=== PATIENT | female | born 1945 | race Caucasian/White ===

== ENCOUNTER 2019-12-11 07:30 | Outpatient (CLI) | payer MEDICARE, OTHER, SELFPAY ==
--- NOTE | ~2019-12-11 | MM_ITS ---
EXAMINATION: MM screening valeria BI w nataliya HISTORY: Screening mammogram, family history of breast cancer in her sister. TECHNIQUE: Craniocaudal and mediolateral oblique 3-D tomosynthesis images were obtained and synthetic 2-D images were generated. CAD analysis was submitted and interpreted. COMPARISON: 12/09/2018, 07/18/2017, 07/16/2016, 07/13/2015 BREAST PARENCHYMAL COMPOSITION: The breasts are almost entirely fatty. FINDINGS: There is no evidence of suspicious mass, calcification, or architectural distortion to sugg est malignancy in either breast. There has been no suspicious interval change. IMPRESSION: 1. No mammographic evidence of malignancy. 2. Recommend routine screening mammography in one year. BI-RADS Category 1: Negative Reviewed, dictated and finalized at location A. R REFINISHER
== END 2019-12-11 07:31 | disposition home or self-care (01) ==
LOC: ANHIMG 07:32
PROVIDERS: PCP Internal Medicine; Visit Provider Internal Medicine
DX: Z12.31 Encounter for screening mammogram for malignant neoplasm of breast (principal)
CPT/HCPCS: 77063; 77067

== ENCOUNTER 2020-01-19 06:41 | Outpatient (CLI) | payer MEDICARE, OTHER, SELFPAY ==
[2020-01-19 07:29] LABS: Hemoglobin A1C 5.5 % (<5.7)
[2020-01-19 07:31] LABS: Cholesterol 167 mg/dL (0-200); HDL Direct 43 mg/dL; Triglycerides 124 mg/dL (<150)
[2020-01-19 07:42] LABS: LDL Cholesterol Direct 99 mg/dL
[2020-01-19 07:46] LABS: Creatinine Urine 113.8 mg/dL
[2020-01-19 08:00] LABS: MALB Creatinine Ratio < 5.3 mg/g (0-30); Microalbumin Urine Random < 6.0 mg/L (0-16.7)
[2020-01-19 08:03] LABS: Free T4 Free Thyroxine 1.08 ng/mL (0.78-2.19)
== END 2020-01-19 06:42 | disposition home or self-care (01) ==
PROVIDERS: PCP Internal Medicine; Visit Provider Nurse Practitioner
DX: E03.9 Hypothyroidism, unspecified (principal); E11.9 Type 2 diabetes mellitus without complications; E78.5 Hyperlipidemia, unspecified
CPT/HCPCS: 36415; 80061; 82043; 83036; 84439; 84443

== ENCOUNTER 2020-07-09 07:04 | Outpatient (CLI) | payer MEDICARE, OTHER, SELFPAY ==
[2020-07-09 07:41] LABS: Hematocrit 37.8 % (37.0-47.0); Hemoglobin 12.4 g/dL (12.0-15.0)
[2020-07-09 07:53] LABS: Hemoglobin A1C 5.6 % (<5.7)
[2020-07-09 08:03] LABS: Alanine Aminotransferase 26 U/L (4-35); Albumin Level 3.8 g/dL (3.5-5.1); Alkaline Phosphatase 79 U/L (38-126); Anion Gap 6 mmol/L (8-16); Aspartate Amino Transferase 27 U/L (14-36); Bilirubin,Total 0.5 mg/dL (0.2-1.3); Blood Urea Nitrogen 13 mg/dL (7-17); Calcium 8.7 mg/dL (8.4-10.2); Carbon Dioxide 30 mmol/L (22-30); Chloride 101 mmol/L (98-107); Cholesterol 178 mg/dL (0-200); Estimated Glomerular Filt Rate > 60; Glucose 111 mg/dL (65-105); HDL Direct 36 mg/dL; Iron 82 ug/dL (37-170); Sodium 137 mmol/L (137-145); Triglycerides 160 mg/dL (<150)
[2020-07-09 08:10] LABS: LDL Cholesterol Direct 112 mg/dL
[2020-07-09 08:14] LABS: Percent Iron Saturation 28 % (20-50)
[2020-07-09 08:33] LABS: Potassium 3.9 mmol/L (3.4-5.0)
== END 2020-07-09 07:05 | disposition home or self-care (01) ==
PROVIDERS: PCP Internal Medicine; Visit Provider Internal Medicine
DX: D50.9 Iron deficiency anemia, unspecified (principal); E11.9 Type 2 diabetes mellitus without complications; D64.9 Anemia, unspecified; E03.9 Hypothyroidism, unspecified; I10 Essential (primary) hypertension; E78.5 Hyperlipidemia, unspecified
CPT/HCPCS: 36415; 80053; 80061; 83036; 83540; 83550; 84443; 85014; 85018

== ENCOUNTER 2020-08-09 07:38 | Outpatient (CLI) | payer MEDICARE, OTHER, SELFPAY ==
--- NOTE | 2020-08-09 07:46 | ECHO_ITS ---
Patient Info Name: Nikole Osorio Age: 74 years : 1945 Gender: Female Ht: 63 in Wt: 275 lbs BSA: 2.43 m2 HR: 60 bpm BP: 134 / 88 mmHg Heart Rhythm: Sinus Rhythm Technical Quality: Good Exam Date: 08/09/2020 8:04 AM Exam Location: [facility] Pulmonary Patient Status: Outpatient Admit Date: 08/09/2020 Staff Ordering Physician: Remy Rico APRN Electronic Scale Subassembler: Mickie Smith RDCS Attending Provider: Remy Rico APRN Referring Physician: Jacky PATRICK; Exam Type: CA echo doppler color flow Study Info Indications R06.02 - Shortness of breath Complete two-dimensional, color flow and Doppler transthoracic echocardiogram is performed. History/Risk Factors Shortness of breath, pulmonary hypertension. Summary 1. Complete two-dimensional, color flow and Doppler transthoracic echocardiogram is performed. 2. Left ventricular chamber dimension is mildly enlarged. 3. Left ventricular systolic function is normal, estimated at 55-60%. 4. The left ventricular diastolic function is abnormal. 5. E/e' 11 is mildly elevated. 6. Left atrial chamber dimension is moderately enlarged. 7. There is trace aortic valve regurgitation. 8. There is moderate mitral valve regurgitation. 9. There is mild tricuspid valve regurgitation. 10. Mild pulmonary hypertension, estimated pulmonary arterial systolic pressure is 48 mmHg. 11. Dilated inferior vena cava with >50% collapse upon inspiration consistent with elevated right atrial pressure, 10 mmHg. Left Ventricle E/e' 11 is mildly elevated. Left ventricular chamber dimension is mildly enlarged. Left ventricular systolic function is normal, estimated at 55-60%. The left ventricular diastolic function is abnormal. Right Ventricle Right ventricular systolic function is normal with TAPSE 2.2 cm.. Right ventricular chamber dimension is normal. Left Atria Left atrial chamber dimension is moderately enlarged. Right Atria Right atrial chamber dimension is normal. Aortic Valve The aortic valve is trileaflet. There is no aortic valve stenosis. There is trace aortic valve regurgitation. Pulmonic Valve There is no pulmonic regurgitation. Mitral Valve There is no mitral valve stenosis. There is moderate mitral valve regurgitation. Tricuspid Valve There is mild tricuspid valve regurgitation. Mild pulmonary hypertension, estimated pulmonary arterial systolic pressure is 48 mmHg. Pericardium/Pleural There is no pericardial effusion. Inferior Vena Cava Dilated inferior vena cava with >50% collapse upon inspiration consistent with elevated right atrial pressure, 10 mmHg. Aorta The aortic root size at the sinus of Valsalva is normal. Left Ventricular Outflow Tract Name Value Normal LVOT 2D LVOT Diameter 2.0 cm LVOT Doppler LVOT Peak Gradient 3 mmHg LVOT Mean Gradient 2 mmHg LVOT VTI 22 cm LVOT VTI/AV VTI Ratio 0.7 LVOT Stroke Volume 73 ml LVOT CO 4.4 l/min
== END 2020-08-09 07:39 | disposition home or self-care (01) ==
PROVIDERS: PCP Internal Medicine; Visit Provider Nurse Practitioner Family
DX: R06.02 Shortness of breath (principal); I08.3 Combined rheumatic disorders of mitral, aortic and tricuspid valves
CPT/HCPCS: 93306

== ENCOUNTER 2020-12-30 06:42 | Outpatient (CLI) | payer MEDICARE, OTHER, SELFPAY ==
[2020-12-30 07:51] LABS: Alanine Aminotransferase 27 U/L (4-35); Albumin Level 3.8 g/dL (3.5-5.1); Alkaline Phosphatase 69 U/L (38-126); Anion Gap 4 mmol/L (8-16); Aspartate Amino Transferase 29 U/L (14-36); Bilirubin,Total 0.5 mg/dL (0.2-1.3); Blood Urea Nitrogen 16 mg/dL (7-17); Calcium 8.5 mg/dL (8.4-10.2); Carbon Dioxide 32 mmol/L (22-30); Chloride 104 mmol/L (98-107); Cholesterol 160 mg/dL (0-200); Estimated Glomerular Filt Rate > 60; Glucose 110 mg/dL (65-105); HDL Direct 34 mg/dL; Potassium 4.1 mmol/L (3.4-5.0); Sodium 140 mmol/L (137-145); Triglycerides 147 mg/dL (<150)
[2020-12-30 08:02] LABS: LDL Cholesterol Direct 97 mg/dL
[2020-12-30 08:21] LABS: Thyroid Stimulating Hormone 0.319 uIU/mL (0.465-4.680)
[2020-12-30 10:58] LABS: Hemoglobin A1C 5.6 % (<5.7)
== END 2020-12-30 06:43 | disposition home or self-care (01) ==
PROVIDERS: PCP Internal Medicine; Visit Provider Internal Medicine
DX: E03.9 Hypothyroidism, unspecified (principal); E11.9 Type 2 diabetes mellitus without complications; I10 Essential (primary) hypertension; E78.5 Hyperlipidemia, unspecified; D50.9 Iron deficiency anemia, unspecified
CPT/HCPCS: 36415; 80053; 80061; 82728; 83036; 84443

== ENCOUNTER 2021-07-21 06:42 | Outpatient (CLI) | payer MEDICARE, OTHER, SELFPAY ==
[2021-07-21 07:47] LABS: Basophils Percent Auto 0.6 % (0.2-1.2); Eosinophils Percent Auto 0.2 % (0-4.4); Hematocrit 37.6 % (37.0-47.0); Hemoglobin 12.1 g/dL (12.0-15.0); Immature Granulocyte Absolute 0.01 K/mm3 (0.00-0.031); Immature Granulocyte Percent A 0.2 % (0-0.5); Lymphocytes Absolute Auto 1.64 K/mm3 (0.9-3.2); Lymphocytes Percent Auto 31.1 % (18.3-44.2); Mean Corpuscular HGB Conc 32.2 g/dl (32-36); Mean Corpuscular Hemoglobin 30.9 pg (26-34); Mean Corpuscular Volume 96.2 fl (80-100); Mean Platelet Volume 10.3 fl (7.4-10.4); Monocytes Absolute Auto 0.4 K/mm3 (0.1-0.6); Neutrophils Absolute Auto 3.2 K/mm3 (1.3-6.7); Neutrophils Percent Auto 59.9 % (45.5-73.1); Platelet Count Result 160 k/mm3 (150-375); Red Blood Count 3.91 M/mm3 (4.2-5.4); Red Cell Distribution Width 12.8 % (11.5-14.5); White Blood Count 5.3 K/mm3 (4.5-10.0)
[2021-07-21 08:04] LABS: Alanine Aminotransferase 22 U/L (4-35); Albumin Level 4.1 g/dL (3.5-5.1); Alkaline Phosphatase 76 U/L (38-126); Anion Gap 7 mmol/L (8-16); Aspartate Amino Transferase 25 U/L (14-36); Bilirubin,Total 0.5 mg/dL (0.2-1.3); Blood Urea Nitrogen 16 mg/dL (7-17); Calcium 8.6 mg/dL (8.4-10.2); Carbon Dioxide 31 mmol/L (22-30); Chloride 101 mmol/L (98-107); Cholesterol 177 mg/dL (0-200); Estimated Glomerular Filt Rate > 60; Glucose 111 mg/dL (65-110); HDL Direct 44 mg/dL; Potassium 4.1 mmol/L (3.4-5.0); Sodium 139 mmol/L (137-145); Triglycerides 130 mg/dL (<150)
[2021-07-21 08:15] LABS: LDL Cholesterol Direct 92 mg/dL
[2021-07-21 08:16] LABS: Hemoglobin A1C 5.9 % (<5.7)
[2021-07-21 08:37] LABS: Iron 71 ug/dL (37-170)
[2021-07-21 08:46] LABS: Percent Iron Saturation 22 % (20-50)
[2021-07-21 09:30] LABS: Creatinine Urine 115.6 mg/dL
[2021-07-21 09:32] LABS: MALB Creatinine Ratio 6.8 mg/g (0-30); Microalbumin Urine Random 7.9 mg/L (0-16.7)
== END 2021-07-21 06:43 | disposition home or self-care (01) ==
LOC: ANHLAB 06:49
PROVIDERS: PCP Internal Medicine; Visit Provider Nurse Practitioner
DX: E03.9 Hypothyroidism, unspecified (principal); E78.49 Other hyperlipidemia; E11.9 Type 2 diabetes mellitus without complications; D50.9 Iron deficiency anemia, unspecified; Z78.0 Asymptomatic menopausal state
CPT/HCPCS: 36415; 80053; 80061; 82043; 83036; 83540; 83550; 84443; 85025

== ENCOUNTER 2022-02-12 06:39 | Outpatient (CLI) | payer MEDICARE, OTHER, SELFPAY ==
[2022-02-12 07:14] LABS: Basophils Percent Auto 0.6 % (0.2-1.2); Eosinophils Percent Auto 0.2 % (0-4.4); Hematocrit 38.5 % (37.0-47.0); Hemoglobin 12.5 g/dL (12.0-15.0); Immature Granulocyte Absolute 0.02 K/mm3 (0.00-0.031); Immature Granulocyte Percent A 0.3 % (0-0.5); Lymphocytes Absolute Auto 1.66 K/mm3 (0.9-3.2); Mean Corpuscular HGB Conc 32.5 g/dl (32-36); Mean Corpuscular Hemoglobin 30.9 pg (26-34); Mean Corpuscular Volume 95.3 fl (80-100); Mean Platelet Volume 10.5 fl (7.4-10.4); Monocytes Absolute Auto 0.5 K/mm3 (0.1-0.6); Monocytes Percent Auto 7.7 % (2.6-8.5); Neutrophils Absolute Auto 4.4 K/mm3 (1.3-6.7); Neutrophils Percent Auto 66.2 % (45.5-73.1); Platelet Count Result 156 k/mm3 (150-375); Red Blood Count 4.04 M/mm3 (4.2-5.4); Red Cell Distribution Width 13.2 % (11.5-14.5); White Blood Count 6.6 K/mm3 (4.5-10.0)
[2022-02-12 07:29] LABS: Alanine Aminotransferase 16 U/L (4-35); Albumin Level 4.1 g/dL (3.5-5.1); Alkaline Phosphatase 68 U/L (38-126); Anion Gap 6 mmol/L (8-16); Aspartate Amino Transferase 27 U/L (14-36); Bilirubin,Total 0.3 mg/dL (0.2-1.3); Blood Urea Nitrogen 17 mg/dL (7-17); Calcium 8.3 mg/dL (8.4-10.2); Carbon Dioxide 29 mmol/L (22-30); Chloride 103 mmol/L (98-107); Cholesterol 176 mg/dL (0-200); Estimated Glomerular Filt Rate > 60; Glucose 113 mg/dL (65-110); HDL Direct 38 mg/dL; Potassium 4.2 mmol/L (3.4-5.0); Sodium 138 mmol/L (137-145); Triglycerides 148 mg/dL (<150)
[2022-02-12 07:39] LABS: LDL Cholesterol Direct 94 mg/dL
[2022-02-12 07:43] LABS: Hemoglobin A1C 5.7 % (<5.7)
== END 2022-02-12 06:40 | disposition home or self-care (01) ==
LOC: ANHLAB 06:44
PROVIDERS: PCP Internal Medicine; Visit Provider Internal Medicine
DX: E03.9 Hypothyroidism, unspecified (principal); E11.9 Type 2 diabetes mellitus without complications; E78.5 Hyperlipidemia, unspecified; D50.9 Iron deficiency anemia, unspecified; I10 Essential (primary) hypertension
CPT/HCPCS: 36415; 80053; 80061; 83036; 84443; 85025

== ENCOUNTER 2022-09-03 06:48 | Outpatient (CLI) | payer MEDICARE, OTHER, SELFPAY ==
[2022-09-03 08:11] LABS: Alanine Aminotransferase 17 U/L (6-35); Alkaline Phosphatase 62 U/L (38-126); Anion Gap 11 mmol/L (8-16); Aspartate Amino Transferase 21 U/L (14-36); Bilirubin,Total 0.4 mg/dL (0.2-1.3); Blood Urea Nitrogen 14 mg/dL (7-17); Calcium 8.5 mg/dL (8.4-10.2); Carbon Dioxide 30 mmol/L (22-30); Chloride 101 mmol/L (98-107); Cholesterol 163 mg/dL (0-200); Estimated Glomerular Filt Rate > 60; Glucose 107 mg/dL (65-110); HDL Direct 39 mg/dL; Potassium 4.1 mmol/L (3.4-5.0); Sodium 142 mmol/L (137-145); Triglycerides 136 mg/dL (<150)
[2022-09-03 08:23] LABS: LDL Cholesterol Direct 93 mg/dL
[2022-09-03 08:47] LABS: Hemoglobin A1C 6.1 % (<5.7)
== END 2022-09-03 06:49 | disposition home or self-care (01) ==
LOC: ANHLAB 06:51
PROVIDERS: PCP Internal Medicine; Visit Provider Nurse Practitioner
DX: E03.9 Hypothyroidism, unspecified (principal); E11.9 Type 2 diabetes mellitus without complications; E78.5 Hyperlipidemia, unspecified
CPT/HCPCS: 36415; 80053; 80061; 83036; 84443

== ENCOUNTER 2023-04-22 06:40 | Outpatient (CLI) | payer MEDICARE, OTHER, SELFPAY ==
[2023-04-22 07:47] LABS: Alanine Aminotransferase 19 U/L (6-35); Alkaline Phosphatase 65 U/L (38-126); Anion Gap 6 mmol/L (8-16); Aspartate Amino Transferase 23 U/L (14-36); Bilirubin,Total 0.4 mg/dL (0.2-1.3); Blood Urea Nitrogen 16 mg/dL (7-17); Calcium 8.4 mg/dL (8.4-10.2); Carbon Dioxide 29 mmol/L (22-30); Chloride 102 mmol/L (98-107); Cholesterol 169 mg/dL (0-200); Estimated Glomerular Filt Rate > 60; Glucose 102 mg/dL (65-110); HDL Direct 41 mg/dL; Potassium 4.3 mmol/L (3.4-5.0); Sodium 137 mmol/L (137-145); Triglycerides 152 mg/dL (<150)
[2023-04-22 07:58] LABS: LDL Cholesterol Direct 100 mg/dL
[2023-04-22 08:18] LABS: Thyroid Stimulating Hormone 0.859 uIU/mL (0.465-4.680)
[2023-04-22 08:32] LABS: Hemoglobin A1C 5.7 % (<5.7)
[2023-04-22 08:47] LABS: Creatinine Urine 98.4 mg/dL
[2023-04-22 08:52] LABS: MALB Creatinine Ratio < 6.1 mg/g (0-30); Microalbumin Urine Random < 6.0 mg/L (0-16.7)
== END 2023-04-22 06:41 | disposition home or self-care (01) ==
PROVIDERS: PCP Nurse Practitioner; Visit Provider Nurse Practitioner
DX: E11.9 Type 2 diabetes mellitus without complications (principal); E03.9 Hypothyroidism, unspecified; E78.5 Hyperlipidemia, unspecified; I10 Essential (primary) hypertension
CPT/HCPCS: 36415; 80053; 80061; 82043; 83036; 84443

== ENCOUNTER 2023-07-25 09:04 | Emergency (ER) | payer MEDICARE, OTHER, SELFPAY ==
[2023-07-25 09:19] VITALS: BP 147/65; PULSE 62; RESP 20; TEMP 36.2; O2SAT 100
--- NOTE | 2023-07-25 09:43 | ED.URI ---
HPI - URI/Sore Throat General Chief Complaint: Upper Respiratory Infection Stated Complaint: Cough/Covid+ Time Seen by Provider: 07/25/23 09:43 Source: patient, RN notes reviewed and old records reviewed Mode of arrival: ambulatory Limitations: no limitations History of Present Illness HPI Narrative: 77 year old female presents to [facility] care with sinus congestion and drainage which is thick yellow in color. Patient reports that she tested positive for COVID on July 05 and did take Paxlovid and she has also been treated with steroids twice for her cough. Patient denies any shortness of breath with no tachypnea or any retractions, SAO2 100% on room air. Patient reports that she takes daily Claritin and has tried some Mucinex without improvement. Patient reports that she did have low grade fevers up to 100F for past 2 days. MD elicited complaint: rhinorrhea, nasal congestion and other (post nasal drainage) Pertinent past history: other (recent COVID) Onset (ago): day(s) () Description of mucous: yellow (thick and thin) Able to tolerate fluids by mouth: Yes Treatments prior to arrival: other (Paxlovid, Claritin, steroids) Related Data Home Medications Medication Instructions Recorded Confirmed metoprolol tartrate 50 mg tablet 50 mg PO Q12H 10/14/19 04/26/23 rivaroxaban 20 mg tablet (Xarelto) 20 mg PO DAILY 10/14/19 04/26/23 furosemide 20 mg tablet (Lasix) 20 mg PO QAM 01/11/20 04/26/23 vitamins A,C,Q-jxcu-moymud 4,296 1 cap PO BID 11/08/20 04/26/23 mcg-226 mg-90 mg capsule (PreserVision AREDS) propafenone 425 mg 325 mg PO Q12H 01/10/21 04/26/23 capsule,extended release 12 hr alprazolam 0.25 mg tablet (Xanax) 0.25 mg PO DAILY PRN 02/27/22 04/26/23 acetaminophen 650 mg 1,300 mg PO Q12H PRN pain 05/05/22 04/26/23 tablet,extended release elderberry fruit 350 mg capsule mg PO 04/26/23 04/26/23 Allergies Allergy/AdvReac Type Severity Reaction Status Date / Time Sulfa (Sulfonamide Allergy Unknown Rash Verified 07/25/23 09:24 Antibiotics) Review of Systems Review of Systems: CONSTITUTIONAL: Reports malaise, chills, sweats, low grade fever. EYES: Denies visual changes, redness, or discharge. ENT: Reports rhinorrhea, congestion, sinus pain, no otalgia and no sore throat. CARDIOVASCULAR: Denies chest pain, palpitations, or edema. RESPIRATORY: Reports cough.? Denies dyspnea. GASTROINTESTINAL: Denies abdominal pain, nausea, vomiting, diarrhea SKIN: Denies rash or itching. MUSCULOSKELETAL: Denies myalgia. NEUROLOGIC: Denies headache. All systems reviewed & are unremarkable except as noted in HPI and below PMFSH Past Medical History Medical History (Updated 07/26/23 @ 08:32 by Bonita Regan NP) Adult hypothyroidism [place] Colonoscopy planned Depression Essential hypertension Gastro-esophageal reflux Iron deficiency anemia CARLOS (obstructive sleep apnea) Other hyperlipidemia Type 2 diabetes mellitus Unspecified atrial fibrillation Surgical History Surgical History History of arthroscopy of knee History of toe surgery Hx of shoulder surgery Family History Family History Mother Family history of lung cancer Family history of lung disease Father Family history of arthritis Family history of heart disease in male family member before age 55 Family history of cardiovascular disease Sibling Family history of malignant neoplasm of breast in first degree relative Carcinoma of colon Breast cancer Daughter Breast cancer Social History Social History Smoking status: Never smoker Second hand tobacco smoke exposure: Yes Alcohol intake: current Alcohol use details: wine, 3 drinks a year Substance use: never Substance use type: does not use Lack of Transportation: YES Lack of Food: Never True Cu
== END 2023-07-25 10:14 | disposition home or self-care (01) ==
PROVIDERS: Emergency Provider Registered Nurse; PCP Nurse Practitioner
DX: J32.9 Chronic sinusitis, unspecified (principal); E11.9 Type 2 diabetes mellitus without complications; E78.5 Hyperlipidemia, unspecified; I10 Essential (primary) hypertension; E03.9 Hypothyroidism, unspecified; I48.91 Unspecified atrial fibrillation
CPT/HCPCS: 99213; G0463

== ENCOUNTER 2023-11-14 07:06 | Outpatient (CLI) | payer MEDICARE, OTHER, SELFPAY ==
[2023-11-14 08:05] LABS: Alanine Aminotransferase 20 U/L (6-35); Albumin Level 3.8 g/dL (3.5-5.1); Alkaline Phosphatase 78 U/L (38-126); Anion Gap 4 mmol/L (8-16); Aspartate Amino Transferase 29 U/L (14-36); Bilirubin,Total 0.7 mg/dL (0.2-1.3); Blood Urea Nitrogen 21 mg/dL (7-17); Calcium 8.9 mg/dL (8.4-10.2); Carbon Dioxide 34 mmol/L (22-30); Chloride 100 mmol/L (98-107); Cholesterol 129 mg/dL (0-200); Estimated Glomerular Filt Rate > 60; Glucose 106 mg/dL (65-110); HDL Direct 34 mg/dL; Sodium 138 mmol/L (137-145); Triglycerides 99 mg/dL (<150)
[2023-11-14 08:16] LABS: LDL Cholesterol Direct 72 mg/dL
== END 2023-11-14 07:07 | disposition home or self-care (01) ==
LOC: ANHLAB 07:09
PROVIDERS: PCP Nurse Practitioner; Visit Provider Nurse Practitioner
DX: E11.9 Type 2 diabetes mellitus without complications (principal); E78.5 Hyperlipidemia, unspecified
CPT/HCPCS: 36415; 80053; 80061; 83036

== ENCOUNTER 2024-05-30 06:35 | Outpatient (CLI) | payer MEDICARE, OTHER, SELFPAY ==
[2024-05-30 06:57] LABS: Hematocrit 34.6 % (37.0-47.0); Hemoglobin 10.7 g/dL (12.0-15.0); Mean Corpuscular HGB Conc 30.9 g/dl (32-36); Mean Corpuscular Hemoglobin 27.2 pg (26-34); Platelet Count Result 184 k/mm3 (150-375); Red Blood Count 3.93 M/mm3 (4.2-5.4); Red Cell Distribution Width 15.1 % (11.5-14.5); White Blood Count 7.1 K/mm3 (4.5-10.0)
[2024-05-30 07:06] LABS: Hemoglobin A1C 6.3 % (<5.7)
[2024-05-30 07:10] LABS: Alanine Aminotransferase 13 U/L (6-35); Alkaline Phosphatase 92 U/L (38-126); Anion Gap 9 mmol/L (4-12); Aspartate Amino Transferase 21 U/L (14-36); Bilirubin,Total 0.5 mg/dL (0.2-1.3); Blood Urea Nitrogen 13 mg/dL (7-17); Calcium 8.6 mg/dL (8.4-10.2); Carbon Dioxide 33 mmol/L (22-30); Chloride 96 mmol/L (98-107); Cholesterol 148 mg/dL (0-200); Estimated Glomerular Filt Rate > 60; Glucose 104 mg/dL (65-110); HDL Direct 35 mg/dL; Potassium 3.7 mmol/L (3.4-5.0); Sodium 138 mmol/L (137-145); Triglycerides 172 mg/dL (<150)
[2024-05-30 07:26] LABS: LDL Cholesterol Direct 85 mg/dL
[2024-05-30 07:40] LABS: Thyroid Stimulating Hormone 0.079 uIU/mL (0.465-4.680)
== END 2024-05-30 06:36 | disposition home or self-care (01) ==
LOC: ANHLAB 06:38
PROVIDERS: PCP Nurse Practitioner; Visit Provider Nurse Practitioner
DX: E11.9 Type 2 diabetes mellitus without complications (principal); D50.9 Iron deficiency anemia, unspecified; E03.9 Hypothyroidism, unspecified; E78.5 Hyperlipidemia, unspecified
CPT/HCPCS: 36415; 80053; 80061; 83036; 84443; 85027

== ENCOUNTER 2024-07-01 08:46 | Observation (INO) | payer MEDICARE, OTHER, SELFPAY ==
[2024-07-01] VITALS (24 sets, daily range): BP systolic 88–137; BP diastolic 56–81; PULSE 60–114; RESP 13–96; TEMP 36.5–36.8; O2SAT 91–100; BMI 45.4
--- NOTE | ~2024-07-01 | XR_ITS ---
Clinical Indication: Tachycardia PA and lateral views of the chest: Comparison: 08/17/2018 Findings: The lungs are clear, without evidence of focal consolidation or pleural effusion. Cardiome diastinal silhouette is stable, with pacemaker device. Right shoulder arthroplasty present. Impression: Clear lungs. Stable cardiomegaly, with pacemaker device. Reviewed, dictated and finalized at location . Impression: Clear lungs. Stable cardiomegaly, with pacemaker device.
--- NOTE | 2024-07-01 08:48 | ECG_ITS ---
Test Date: 2024-07-01 09:00:31 Measurements Intervals [place] Rate: 110 P: 0 MS: 0 QRS: 10 QRSD: 91 T: -24 QT: 362 QTc: 492 Interpretive Statements ATRIAL FIBRILLATION WITH RAPID VENTRICULAR RESPONSE WITH ABERRANT CONDUCTION OR VENTRICULAR PREMATURE COMPLEXES NONSPECIFIC ST AND T-WAVE ABNORMALITY ABNORMAL ECG No previous ECG available for comparison Electronically Signed On 07-02-2024 13:03:58 CDT by Tyelr Mancilla M.D.
--- NOTE | 2024-07-01 09:19 | ED.ARRPALP ---
HPI - Arrhythmia/Palpitations General Chief Complaint: Arrhythmia/Palpitations Stated Complaint: heart racing Time Seen by Provider: 07/01/24 08:58 History of Present Illness HPI narrative: 78-year-old female presenting to the emergency department for evaluation for sensation of rapid heart rate. Patient does have a prior history of AFib and does take Xarelto and metoprolol. Patient states she is not always in AFib. Patient states she feels that she has been it since Saturday. Patient reports that typically last about 24 hours then she is able to come out of the AFib. Patient does follow-up with cardiology at [facility]. Patient denies any chest pain or shortness of breath Related Data Home Medications Medication Instructions Recorded Confirmed metoprolol tartrate 50 mg tablet 50 mg PO Q12H 10/14/19 06/29/24 rivaroxaban 20 mg tablet (Xarelto) 20 mg PO DAILY 10/14/19 06/29/24 vitamins A,C,R-pwol-jqwdch 4,296 1 cap PO BID 11/08/20 06/29/24 mcg-226 mg-90 mg capsule (PreserVision AREDS) alprazolam 0.25 mg tablet (Xanax) 0.25 mg PO DAILY PRN Anxiety 02/27/22 06/29/24 acetaminophen 650 mg 1,300 mg PO Q12H pain 05/05/22 06/29/24 tablet,extended release torsemide 20 mg tablet 20 mg PO BID 11/21/23 06/29/24 empagliflozin 10 mg tablet 10 mg PO DAILY 05/29/24 06/29/24 (Jardiance) loratadine 10 mg tablet (Allergy 10 mg PO DAILY PRN Allergy Symptoms 06/29/24 06/29/24 Relief (loratadine)) Allergies Allergy/AdvReac Type Severity Reaction Status Date / Time Sulfa (Sulfonamide Allergy Intermediate Rash Verified 07/01/24 09:17 Antibiotics) Review of Systems Review of Systems: All systems reviewed & are unremarkable except as noted in HPI and below PMFSH Past Medical History Medical History Colonoscopy planned Congestive heart failure of unknown etiology Depression Essential hypertension Gastro-esophageal reflux History of sarcoidosis Hx of arteriovenous malformation (AVM) Hypothyroidism Iron deficiency anemia CARLOS (obstructive sleep apnea) Other hyperlipidemia Paroxysmal atrial fibrillation Post-menopausal Restless leg syndrome Type 2 diabetes mellitus Unspecified atrial fibrillation Surgical History Surgical History History of arthroscopy of knee History of toe surgery Hx of shoulder surgery Family History Family History Mother Family history of lung cancer Family history of lung disease Father Family history of arthritis Family history of heart disease in male family member before age 55 Family history of cardiovascular disease Sibling Family history of malignant neoplasm of breast in first degree relative Carcinoma of colon Breast cancer Daughter Breast cancer Social History Social History Smoking status: Never smoker Second hand tobacco smoke exposure: Yes Alcohol intake: never Substance use: never Substance use type: does not use Lack of Transportation: YES Lack of Food: Never True Current Housing: I Have Housing Concerned About Future Housing: No Difficulty Paying Gas/Electric Bills: No Difficulty Paying for Meds: No Currently Unemployed: No Education: Bachelor's Degree Difficulty w/ Childcare or Family Care: No Living arrangements: with family Spiritual care concerns: No Exam Narrative: APPEARANCE: Well appearing, no pain, no distress, well-nourished. HEAD: normocephalic, atraumatic. EYES: PERRLA/EOMI, conjunctivae clear. NOSE: Normal no drainage EARS:TMS clear with good light reflex. THROAT: Pharynx clear, no exudate. NECK: Supple. No adenopathy, no masses. RESPIRATORY: Airway patent, respirations nonlabored. Clear to auscultation bilaterally, no rales, rhonchi, wheezing. CARDIOVASCULAR: AFib with RVR ABDOMINAL: Soft
[2024-07-01] MEDS: METOPROLOL TARTRATE INJ 5 MG/5 ML VIAL IV PUSH ×2 (09:38→12:43)
[2024-07-01 10:35] LABS: Basophils Absolute Auto 0.1 K/mm3 (0.0-0.1); Basophils Percent Auto 0.9 % (0.2-1.2); Eosinophils Absolute Auto 0.3 K/mm3 (0-0.3); Eosinophils Percent Auto 3.4 % (0-4.4); Hematocrit 35.4 % (37.0-47.0); Hemoglobin 10.7 g/dL (12.0-15.0); Immature Granulocyte Absolute 0.04 K/mm3 (0.00-0.031); Immature Granulocyte Percent A 0.4 % (0-0.5); Lymphocytes Absolute Auto 1.56 K/mm3 (0.9-3.2); Lymphocytes Percent Auto 17.5 % (18.3-44.2); Mean Corpuscular HGB Conc 30.2 g/dl (32-36); Mean Corpuscular Hemoglobin 26.6 pg (26-34); Mean Corpuscular Volume 87.8 fl (80-100); Mean Platelet Volume 10.1 fl (7.4-10.4); Monocytes Absolute Auto 0.6 K/mm3 (0.1-0.6); Neutrophils Absolute Auto 6.3 K/mm3 (1.3-6.7); Neutrophils Percent Auto 70.8 % (45.5-73.1); Platelet Count Result 180 k/mm3 (150-375); Red Blood Count 4.03 M/mm3 (4.2-5.4); Red Cell Distribution Width 15.8 % (11.5-14.5); White Blood Count 8.9 K/mm3 (4.5-10.0)
[2024-07-01] MEDS: SODIUM CHLORIDE 0.9% IV 1,000 ML 999 ML IV CONT (10:42)
[2024-07-01 10:46] LABS: Alanine Aminotransferase 12 U/L (6-35); Albumin Level 3.9 g/dL (3.5-5.1); Alkaline Phosphatase 89 U/L (38-126); Anion Gap 8 mmol/L (4-12); Aspartate Amino Transferase 22 U/L (14-36); Bilirubin,Total 0.4 mg/dL (0.2-1.3); Blood Urea Nitrogen 14 mg/dL (7-17); Calcium 8.7 mg/dL (8.4-10.2); Carbon Dioxide 33 mmol/L (22-30); Chloride 96 mmol/L (98-107); Estimated CRCL calculation 50 ml/min; Estimated Glomerular Filt Rate 54; Glucose 112 mg/dL (65-110); Lipase 78 U/L (23-300); Magnesium 2.1 mg/dL (1.6-2.3); Sodium 137 mmol/L (137-145)
[2024-07-01 10:48] LABS: INR 1.2; Partial Thromboplastin Time 30.8 Seconds (22.3-36.8); Prothrombin Time 15.4 Seconds (11.1-14.7)
[2024-07-01 10:58] LABS: Troponin I < 0.012 ng/mL (0.000-0.034)
[2024-07-01 14:29] LABS: Troponin I < 0.012 ng/mL (0.000-0.034)
--- NOTE | 2024-07-01 15:20 | PM.IMHP ---
H&P: HPI History of Present Illness Date/Time: 07/01/24 15:20 Chief Complaint: Palpitations Narrative: 78 y/o F presents here with palpitations and lightheadedness with PMH of pAFib, hypothyroidism, depression, hypertension, GERD, iron deficiency anemia, CARLOS, hyperlipidemia, and type 2 diabetes. The patient presents here from home for further evaluation of palpitations and lightheadedness. Patient reports she initially noticed symptoms on Saturday (06/28), she does not remember what she was doing when she began to experience the palpitations. Saturday morning patient had a cup of coffee which she reports made things worse. Reports mild dizziness and presyncope with exertion, has since resolved with shinto of NSR. She denies associated chest pain or shortness of breath. The patient has a past medical history of paroxysmal atrial fibrillation for which she takes Metoprolol and Xarelto. She reports that when she goes into AFib it typically only last 24 hours, however she feels she has been in atrial fibrillation since Saturday, and AFib events have historically had a precipitating factor. She denies any recent missed doses of her medications. The patient is established with a skiver hand at [facility]. Reports last echo was within the last year with next scheduled was in Sep. Patient reports her TSH was very low when it was checked last, on 150 mcg daily which has since been cut to 125 mcg. Initial VS at presentation: 98.2? F, HR 60, R 20, 115/81, and 95% on RA. ED workup showed: No leukocytosis, hemoglobin 10.7 (previously 10.7 on 05/30/2024), INR 1.2, creatinine 1.0 and GFR 54, initial troponins negative x2. CXR showed clear lungs, stable cardiomegaly, and pacemaker device. Initial EKG showing AFib with RVR and rate of 110. Review of Systems Review of Systems: All systems reviewed & are unremarkable except as noted in HPI and below [facility] Past Medical History Medical History Colonoscopy planned Congestive heart failure of unknown etiology Depression Essential hypertension Gastro-esophageal reflux History of sarcoidosis Hx of arteriovenous malformation (AVM) Hypothyroidism Iron deficiency anemia CARLOS (obstructive sleep apnea) Other hyperlipidemia Paroxysmal atrial fibrillation Post-menopausal Restless leg syndrome Type 2 diabetes mellitus Unspecified atrial fibrillation Surgical History Surgical History History of arthroscopy of knee History of toe surgery Hx of shoulder surgery Family History Family History Mother Family history of lung cancer Family history of lung disease Father Family history of arthritis Family history of heart disease in male family member before age 55 Family history of cardiovascular disease Sibling Family history of malignant neoplasm of breast in first degree relative Carcinoma of colon Breast cancer Daughter Breast cancer Social History Social History Smoking status: Never smoker Second hand tobacco smoke exposure: Yes Alcohol intake: never Substance use: never Substance use type: does not use Do You Feel Safe in your Home?: Yes Lack of Transportation: No Lack of Food: Never True Current Housing: I Have Housing Concerned About Future Housing: No Difficulty Paying Gas/Electric Bills: No Difficulty Paying for Meds: No Currently Unemployed: No Education: Bachelor's Degree Difficulty w/ Childcare or Family Care: YES Living arrangements: with family Spiritual care concerns: No Meds Home Medications and Allergies Home Medications Medication Instructions Recorded Confirmed Type metoprolol tartrate 50 mg tablet 50 mg PO Q12H 10/14/19 07/01/24 History rivaroxaban 20 mg tablet (Xarelto) 20 mg PO DAILY 10/14/19
--- NOTE | 2024-07-01 16:37 | ADMGEN ---
This patient, Nikole Osorio, was admitted to IMU STATUS IN ED 10, Room 205-01. Patient/family oriented to hospital policies and general routines including ID bracelet, bed and alarms, visiting hours, pain management, procedures, bathroom and other care routines, personal items, smoking policy, room service/diet, and visiting hours. Information on how to activate the Rapid Response Team has been discussed. Patient/Family are encouraged to report perceived risks to care and to ask questions if they do not understand what they are told or what they should do.
[2024-07-01 16:50] LABS: Troponin I < 0.012 ng/mL (0.000-0.034)
[2024-07-01 17:47] LABS: Glucose Point of Care 111 mg/dl (65-105)
[2024-07-01] MEDS: PRAMIPEXOLE 1 MG TABLET PO (19:01)
[2024-07-01] MEDS: RIVAROXABAN 20 MG TABLET PO (19:01)
[2024-07-01] MEDS: OPTI-GEN TAB 1 TABLET PO (19:01)
[2024-07-01] MEDS: PANTOPRAZOLE 40 MG TABLET PO (19:01)
[2024-07-01] MEDS: TORSEMIDE 20 MG TABLET PO (19:01)
[2024-07-01] MEDS: GABAPENTIN 300 MG CAPSULE 600 MG PO (19:01)
[2024-07-01 20:30] LABS: Glucose Point of Care 119 mg/dl (65-105)
[2024-07-01] MEDS: ACETAMINOPHEN 325 MG TABLET 1300 MG PO (21:22)
[2024-07-01] MEDS: METOPROLOL TARTRATE 50 MG TAB PO (21:22)
[2024-07-02] VITALS (14 sets, daily range): BP systolic 99–133; BP diastolic 57–73; PULSE 60–76; RESP 18–24; TEMP 36.2–37.1; O2SAT 93–97
--- NOTE | 2024-07-02 | ECHO_ITS ---
Patient Info Name: Nikole Osorio Age: 78 years : 1945 Gender: Female Ht: 63 in Wt: 258 lbs BSA: 2.35 m2 HR: 63 bpm BP: 105 / 57 mmHg Heart Rhythm: Sinus Rhythm Technical Quality: Poor Exam Date: 07/02/2024 9:08 AM Exam Location: Echo Lab Patient Status: Inpatient Admit Date: 07/01/2024 Staff Ordering Physician: Lesli Marie APRN Personal Consultant: Daryl Ramos RDCS Attending Provider: Fuentes Yee MD Referring Physician: Cynthia HONG; Exam Type: CA echo dop color flow w con Study Info Indications I48.1 - Persistent atrial fibrillation Complete two-dimensional, color flow and Doppler transthoracic echocardiogram is performed with contrast to opacify the left ventricle and to improve the deliniation of the left ventricle endocardial borders. Contrast/Agitated Saline Contrast/Ag. Saline: Definity Amount: 3.00 ml Existing IV Access: Yes Reason for Poor Study: poor echocardiographic windows Summary 1. Technically challenging exam, definity contrast utilized. 2. Left ventricular hypertrophy with adequate systolic function. 3. Grade 1 diastolic noncompliance. 4. Dilated left atrium. 5. Mild mitral and tricuspid regurgitation. 6. Pacemaker lead noted. 7. Patient in sinus rhythm( exam ordered because of atrial fib). Left Ventricle Left ventricular chamber dimension is normal. Left ventricular systolic function is normal, estimated at 50-55%. The left ventricular diastolic function is grade I diastolic dysfunction. Right Ventricle Right ventricular chamber dimension is normal. Left Atria Left atrial chamber dimension is moderately enlarged. Right Atria Right atrial chamber dimension is normal. Aortic Valve The aortic valve is trileaflet. Pulmonic Valve The pulmonic valve is not well visualized. Mitral Valve The mitral valve has normal leaflets. There is mild mitral valve regurgitation. Tricuspid Valve The tricuspid valve leaflets are normal. There is mild tricuspid valve regurgitation. Mild pulmonary hypertension, estimated pulmonary arterial systolic pressure is Empty. Pericardium/Pleural The pericardium appears normal. Aorta The aortic root size at the sinus of Valsalva is normal. Report Signatures
[2024-07-02 04:56] LABS: Basophils Absolute Auto 0.1 K/mm3 (0.0-0.1); Basophils Percent Auto 0.7 % (0.2-1.2); Eosinophils Absolute Auto 0.3 K/mm3 (0-0.3); Hematocrit 32.8 % (37.0-47.0); Hemoglobin 10.1 g/dL (12.0-15.0); Immature Granulocyte Absolute 0.03 K/mm3 (0.00-0.031); Immature Granulocyte Percent A 0.4 % (0-0.5); Lymphocytes Absolute Auto 2.04 K/mm3 (0.9-3.2); Lymphocytes Percent Auto 24.9 % (18.3-44.2); Mean Corpuscular HGB Conc 30.8 g/dl (32-36); Mean Corpuscular Hemoglobin 27.2 pg (26-34); Mean Corpuscular Volume 88.4 fl (80-100); Mean Platelet Volume 11.5 fl (7.4-10.4); Monocytes Absolute Auto 0.6 K/mm3 (0.1-0.6); Monocytes Percent Auto 7.3 % (2.6-8.5); Neutrophils Absolute Auto 5.1 K/mm3 (1.3-6.7); Neutrophils Percent Auto 62.7 % (45.5-73.1); Platelet Count Result 146 k/mm3 (150-375); Red Blood Count 3.71 M/mm3 (4.2-5.4); Red Cell Distribution Width 15.9 % (11.5-14.5); White Blood Count 8.2 K/mm3 (4.5-10.0)
[2024-07-02 05:10] LABS: Alanine Aminotransferase 12 U/L (6-35); Albumin Level 3.7 g/dL (3.5-5.1); Alkaline Phosphatase 80 U/L (38-126); Anion Gap 7 mmol/L (4-12); Aspartate Amino Transferase 23 U/L (14-36); Bilirubin,Total 0.5 mg/dL (0.2-1.3); Blood Urea Nitrogen 14 mg/dL (7-17); Calcium 8.4 mg/dL (8.4-10.2); Carbon Dioxide 34 mmol/L (22-30); Chloride 97 mmol/L (98-107); Estimated CRCL calculation 50 ml/min; Estimated Glomerular Filt Rate 54; Glucose 109 mg/dL (65-110); Potassium 3.6 mmol/L (3.4-5.0); Sodium 138 mmol/L (137-145)
[2024-07-02] MEDS: TORSEMIDE 20 MG TABLET PO (05:54)
[2024-07-02 07:27] LABS: Glucose Point of Care 110 mg/dl (65-105)
[2024-07-02] MEDS: ROSUVASTATIN 10 MG TABLET PO (08:38)
[2024-07-02] MEDS: GABAPENTIN 300 MG CAPSULE 600 MG PO ×2 (08:38→14:19)
[2024-07-02] MEDS: LEVOTHYROXINE SODIUM 125 MCG TABLET PO (08:38)
[2024-07-02] MEDS: metFORMIN HCL 500 MG TABLET PO ×2 (08:38→17:37)
[2024-07-02] MEDS: EMPAGLIFLOZIN 10 MG TABLET PO (08:38)
[2024-07-02] MEDS: ACETAMINOPHEN 325 MG TABLET 1300 MG PO (08:38)
[2024-07-02] MEDS: FLUoxetine HCL 20 MG CAPSULE 40 MG PO (08:38)
[2024-07-02] MEDS: PANTOPRAZOLE 40 MG TABLET PO (08:39)
[2024-07-02] MEDS: OPTI-GEN TAB 1 TABLET PO (08:39)
[2024-07-02] MEDS: METOPROLOL TARTRATE 50 MG TAB PO (08:39)
[2024-07-02] MEDS: PERFLUTREN LIPID MICROSPHERES 1.5 ML VIAL DILUTED TO 10 ML TOTAL VOLUME IV PUSH (09:30)
[2024-07-02 11:02] LABS: Glucose Point of Care 94 mg/dl (65-105)
--- NOTE | 2024-07-02 11:41 | IVDEFINITY ---
Prior to administration of IV Definity the patient was educated on the risks and benefits of the imaging enhancing agent including potential adverse side effects. The patient verbalized understanding. Allergies were verified. No exclusion criteria were identified and at least one of the following inclusion criteria were met: 1) physician request, 2) patient technically difficult to image (per the [place] [employer]chocardi[employer] guidelines of two or more segments not discernable within the apical view), or 3) questionable left ventricular function. ?
[2024-07-02] MEDS: PRAMIPEXOLE 1 MG TABLET PO ×2 (14:19→17:35)
--- NOTE | 2024-07-02 14:21 | PC.NURSE ---
Patient asked if she could have her mirapex and gabapentin. I talked with her nurse Missy and she stated that the patient did not want the mirapex this morning. Mirapex and gabapentin given at 1422 per patient request.
[2024-07-02 15:27] LABS: Glucose Point of Care 89 mg/dl (65-105)
--- NOTE | 2024-07-02 16:49 | PM.CNCAR ---
Assessment and Plan Assessment and plan (1) Atrial fibrillation with rapid ventricular response: Code(s): I48.91 - Unspecified atrial fibrillation Status: Acute Plan this is a 78-year-old lady with a history of paroxysmal atrial fib for approximately 6-7 years. She is being managed with metoprolol and has a pacemaker implanted by pharmacy buyer elsewhere because of Loi arrhythmias. She is clinically stable at this time. She received some extra metoprolol yesterday and did referred out of AFib into an atrially paced rhythm. Her echocardiogram shows no other significant abnormalities and she appears to be stable enough for discharge. Discussed with her the idea of managing atrial fib with a more aggressive antiarrhythmic therapy but since she has failed 3 previous antiarrhythmic agents and probably is a less desirable option. I encouraged her to follow-up with her physician at [facility] and consider electrophysiology consultation to either perform AFib ablation or possibly AV node ablation so that she does not have tachycardia when she goes into AFib. Tyler Mancilla MD [facility] History of Present Illness History of Present Illness Consult date/time: 07/02/24 16:49 Reason For Visit: Afib RVR Narrative: This is a 78-year-old lady I am seeing at the request of the hospitalist because of an episode of recurrent symptomatic atrial fibrillation with which she was hospitalized yesterday. The patient states that she is known to have paroxysmal atrial fibrillation for number of years with 1st episode occurring back in about 2018. Initially she was managed by physicians at this hospital subsequently she transferred her cardiovascular care to a physician at [facility] and now most recently 2 physician at [facility]. Patient states that she initially had atrial fib identified after she was in this hospital following shoulder surgery. She was placed on medical therapy with beta-kenyon and anticoagulated and following that elected to follow-up with her physician elsewhere. Apparently she was having problems with Loi arrhythmias and a dual-chamber [employer] pacemaker was implanted. To the best of her knowledge the device is functioning properly. Her pharmacy buyer at [facility] is currently treating her with metoprolol for rhythm control and anticoagulation with Xarelto. He is not known if coronary or valvular heart disease. She reports that over the years the other physicians described above had placed on several different antiarrhythmic drugs she remembers specifically being on flecainide as well as on propafenone. She believes she was also on a 3rd antiarrhythmic that she can not recall. Two of these were ineffective and the 3rd 1 caused QT prolongation and the position stop the medication. There was some conversation by her physician at [facility] about having tack cutter see her to consider ablation although that never did occur. She says when these episodes typically occur she can take an extra dose of metoprolol and these episodes of AFib will soon after that subsided. The current episode began on Saturday of last weekend and she finally came into the hospital yesterday. She was given extra metoprolol and did convert to sinus rhythm yesterday. She actually is in an atrially paced rhythm since conversion. She feels well at this time and would like to be discharged. Review of Systems Constitutional: Constitutional: Reports no additional constitutional complaints Eyes: Eyes: Reports no additional eye complaints ENT: Reports system reviewed and no additional complaints, except as documented Cardiovascular: Cardiovascular: Reports as per HPI and Reports palpitations Respiratory: Respiratory: Reports no additional respiratory complaints Gastrointestinal: Gastrointestinal: Reports no additional gastrointestinal complaints Musculoskeletal: Musculoskeletal: Reports no additional musculoskel
--- NOTE | 2024-07-02 17:03 | PM.DS ---
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 Diabetes mellitus complication status: without complication Qualified Code(s): E11.9 - Type 2 diabetes mellitus without complications Code(s): E11.9 - Type 2 diabetes mellitus without complications Status: Acute (3) Essential hypertension: Code(s): I10 - Essential (primary) hypertension Status: Acute (4) CARLOS (obstructive sleep apnea): Code(s): G47.33 - Obstructive sleep apnea (adult) (pediatric) Status: Acute DS: Summary Hospital Course Reason for hospitalization: 78 y/o female with pAFib, hypothyroidism, depression, hypertension, GERD, iron deficiency anemia, CARLOS, hyperlipidemia, and type 2 diabetes who presents here with palpitations and lightheadedness. Please see H&P for details Hospital Course: Patient present to the emergency room with palpitations and found to have elevated heart rate. She was mildly anemic but this has been noted before and was stable. Troponin was negative x3. Lipase normal. TSH normal. Electrolytes within normal limits. Renal function normal. Chest x-ray was clear. EKG showed atrial fibrillation with RVR and nonspecific ST and T-wave changes. She was given metoprolol IV. She was given IV fluids as well because of blood pressure became soft. She converted to normal sinus rhythm. She did note low blood pressure at home probably related to prolonged AFib. Blood pressure was stable overnight and this morning on her home medications. Echocardiogram shows LVH with adequate systolic function with EF of 50-55%. She had grade 1 diastolic noncompliance with dilated left atrium and mild mitral and tricuspid regurgitation. Cardiology was consulted. Patient however has been on multiple antiarrhythmic medications without success. She was advised to follow-up with her manager of project management with further discussion about possible ablation. She overall did well was able be discharged home on 07/02/2024. Status at Discharge Cognitive/behavioral status at discharge: stable Time Spent with Patient Time attestation: Total time spent providing and/or coordinating discharge services: 35 minutes Time spent: Greater than 30 minutes Exam Narrative: AF 98.7 133/73 67 24 94% ra Gen - NARD Chest - scattered inspiratory rhonchi, nml RR CV - RRR S1/S2. JVP not elevated Abd - Soft, obese, NT Ext - No pedal edema Psych - Nml mood and affect Skin - Warm and dry DS: Data Data Completed and Pending Labs on day of discharge: Labs from last 24 hours 07/02/24 07/02/24 07/02/24 15:20 10:58 07:25 WBC RBC Hgb Hct MCV MCH MCHC RDW Plt Count MPV Immature Gran % (Auto) Neut % (Auto) Lymph % (Auto) [place] % (Auto) Eos % (Auto) Baso % (Auto) Lymph # (Auto) [place] # (Auto) Eos # (Auto) Baso # (Auto) Abs Immat Gran (auto) Absolute Neuts (auto) Absolute Nucleated RBC Nucleated RBC % Sodium Potassium Chloride Carbon Dioxide Anion Gap BUN Creatinine Estim Creat Clear Calc Estimated GFR Glucose POC Capillary Glucose 89 94 110 H Calcium Total Bilirubin AST ALT Alkaline Phosphatase Total Protein Albumin TSH (Reflex) 07/02/24 07/01/24 07/01/24 04:11 20:28 17:43 WBC 8.2 RBC 3.71 L Hgb 10.1 L Hct 32.8 L MCV 88.4 MCH 27.2 MCHC 30.8 L RDW 15.9 H Plt Count 146 L MPV 11.5 H Immature Gran % (Auto) 0.4 Neut % (Auto) 62.7 Lymph % (Auto) 24.9 [place] % (Auto) 7.3 Eos % (Auto) 4.0 Baso % (Auto) 0.7 Lymp
[2024-07-02] MEDS: RIVAROXABAN 20 MG TABLET PO (17:37)
== END 2024-07-02 17:58 | disposition home or self-care (01) ==
LOC: ANHED 09:13 → ANHIMU 15:56
PROVIDERS: Student in an Organized Health Care Education/Training Program; Admitting Provider General Practice; Emergency Provider Emergency Medicine; PCP Nurse Practitioner; Visit Provider Internal Medicine
DX: I48.91 Unspecified atrial fibrillation (principal); I11.0 Hypertensive heart disease with heart failure; I50.9 Heart failure, unspecified; E78.49 Other hyperlipidemia; I08.1 Rheumatic disorders of both mitral and tricuspid valves; E03.9 Hypothyroidism, unspecified; G47.33 Obstructive sleep apnea (adult) (pediatric); K21.9 Gastro-esophageal reflux disease without esophagitis; E11.9 Type 2 diabetes mellitus without complications; F32.A Depression, unspecified; D50.9 Iron deficiency anemia, unspecified; G25.81 Restless legs syndrome; Z79.84 Long term (current) use of oral hypoglycemic drugs; Z95.0 Presence of cardiac pacemaker; Z79.01 Long term (current) use of anticoagulants
CPT/HCPCS: 36415; 71046; 80053; 82948; 83690; 83735; 84443; 84484; 85025; 85610; 85730; 93005; 96361; 96374; 96375; 99285; A9270; C8929; G0378; J7030; Q9957

== ENCOUNTER 2024-07-12 08:23 | Emergency (ER) | payer MEDICARE, OTHER, SELFPAY ==
[2024-07-12 08:44] VITALS: BP 116/73; PULSE 70; RESP 16; TEMP 36.3; O2SAT 94
--- NOTE | 2024-07-12 08:51 | ED.GENADULT ---
HPI - General Adult General Chief complaint: Urogenital-Female Stated complaint: UTI SYMPTOMS Time Seen by Provider: 07/12/24 08:51 Source: patient Mode of arrival: ambulatory Limitations: no limitations History of Present Illness HPI narrative: 78-year-old female patient presents to the [facility] with complaints of urinary symptoms that started last night. Patient states she has been having some burning with urination. Denies any blood in the urine denies any odor. Patient states she has felt some lower abdominal pressure but no pain. Denies any low back pain and denies any confusion Related Data Home Medications Medication Instructions Recorded Confirmed metoprolol tartrate 50 mg tablet 50 mg PO Q12H 10/14/19 07/12/24 rivaroxaban 20 mg tablet (Xarelto) 20 mg PO DAILY 10/14/19 07/12/24 vitamins A,C,C-uffz-kfspht 4,296 1 cap PO BID 11/08/20 07/12/24 mcg-226 mg-90 mg capsule (PreserVision AREDS) alprazolam 0.25 mg tablet (Xanax) 0.25 mg PO DAILY PRN Anxiety 02/27/22 07/12/24 acetaminophen 650 mg 1,300 mg PO Q12H pain 05/05/22 07/12/24 tablet,extended release torsemide 20 mg tablet 20 mg PO BID 11/21/23 07/12/24 empagliflozin 10 mg tablet 10 mg PO DAILY 05/29/24 07/12/24 (Jardiance) loratadine 10 mg tablet (Allergy 10 mg PO DAILY PRN Allergy Symptoms 06/29/24 07/12/24 Relief (loratadine)) levothyroxine 125 mcg tablet 125 mcg PO DAILY 07/02/24 07/12/24 Allergies Allergy/AdvReac Type Severity Reaction Status Date / Time Sulfa (Sulfonamide Allergy Intermediate Rash Verified 07/12/24 08:38 Antibiotics) Review of Systems Review of Systems: CONSTITUTIONAL: Denies fever, chills, or sweats. EYES: Denies visual changes, redness, or discharge. ENT: Denies rhinorrhea, congestion, sore throat, or otalgia. CARDIOVASCULAR: Denies chest pain, palpitations, or edema. RESPIRATORY: Denies cough or dyspnea. GASTROINTESTINAL: Denies abdominal pain, nausea, vomiting, or diarrhea. GENITOURINARY: positive dysuria denies hematuria. SKIN: Denies rash or itching. MUSCULOSKELETAL: Denies back pain, joint pain, or myalgia. NEUROLOGIC: Denies headache, numbness, or weakness. PSYCHIATRIC: Denies anxiety or depression. [facility] Past Medical History Medical History Colonoscopy planned Congestive heart failure of unknown etiology Depression Essential hypertension Gastro-esophageal reflux History of sarcoidosis Hx of arteriovenous malformation (AVM) Hypothyroidism Iron deficiency anemia CARLOS (obstructive sleep apnea) Other hyperlipidemia Paroxysmal atrial fibrillation Post-menopausal Restless leg syndrome Type 2 diabetes mellitus Unspecified atrial fibrillation Surgical History Surgical History History of arthroscopy of knee History of toe surgery Hx of shoulder surgery Family History Family History Mother Family history of lung cancer Family history of lung disease Father Family history of arthritis Family history of heart disease in male family member before age 55 Family history of cardiovascular disease Sibling Family history of malignant neoplasm of breast in first degree relative Carcinoma of colon Breast cancer Daughter Breast cancer Social History Social History Smoking status: Never smoker Second hand tobacco smoke exposure: Yes Alcohol intake: never Substance use: never Substance use type: does not use Do You Feel Safe in your Home?: Yes Lack of Transportation: No Lack of Food: Never True Current Housing: I Have Housing Concerned About Future Housing: No Difficulty Paying Gas/Electric Bills: No Difficulty Paying for Meds: No Currently Unemployed: No Education: Bachelor's Degree Difficulty w/ Childcare or Family Care: YES Living arrangeme
[2024-07-12 09:00] LABS: EDUAAPPEAR Clear; EDUABILI Negative (Negative); EDUABLOOD Trace (Negative); EDUACOLOR1 Yellow; EDUAGLUCOSE 3+ (Negative); EDUAKETONE Negative (Negative); EDUALEUKO Negative (Negative); EDUANITRATE Positive (Negative); EDUAPH 5.5; EDUAPROTEIN Negative (Negative); EDUASPGRAVITY 1.015; EDUAUROBILI 0.2
== END 2024-07-12 09:06 | disposition home or self-care (01) ==
PROVIDERS: Emergency Provider Nurse Practitioner Family; PCP Nurse Practitioner
DX: N39.0 Urinary tract infection, site not specified (principal); B96.20 Unspecified Escherichia coli [E. coli] as the cause of diseases classified elsewhere; I11.0 Hypertensive heart disease with heart failure; I50.9 Heart failure, unspecified; K21.9 Gastro-esophageal reflux disease without esophagitis; E03.9 Hypothyroidism, unspecified; I49.1 Atrial premature depolarization; I48.0 Paroxysmal atrial fibrillation; G25.81 Restless legs syndrome; E11.9 Type 2 diabetes mellitus without complications; E78.49 Other hyperlipidemia; Z79.01 Long term (current) use of anticoagulants
CPT/HCPCS: 81003; 87077; 87086; 87088; 87186; 99213; G0463

== ENCOUNTER 2024-07-17 06:39 | Outpatient (CLI) | payer MEDICARE, OTHER, SELFPAY ==
[2024-07-17 07:58] LABS: Add Urine Microscopic? YES; Appearance Urine Clear (Clear); Bacteria Urine None Seen /hpf; Bilirubin Urine Negative (Negative); Blood Urine Negative (Negative); Color Urine Yellow (Yellow); Glucose Urine UA Negative (Negative); Ketones Urine Trace mg/dL (Negative); Leukocyte Esterase Ur 1+ LEU/UL (Negative); Need Manual Microscopic Reviewed; Nitrate Urine Negative (Negative); Non Pathogenic Casts 0-2; Protein Urine Negative (Negative); RBC Urine 0-2 /hpf (0-2); Specific Grav Ur 1.015 (1.001-1.035); Squamous Epithelial Cell Urine Occasional /hpf (Few); WBC Urine 0-5 /hpf (0-3); pH Urine 5.5 (5.0-9.0)
== END 2024-07-17 06:40 | disposition home or self-care (01) ==
LOC: ANHLAB 06:42
PROVIDERS: PCP Nurse Practitioner; Visit Provider Nurse Practitioner
DX: R39.9 Unspecified symptoms and signs involving the genitourinary system (principal)
CPT/HCPCS: 81001; 87086

== ENCOUNTER 2024-07-21 01:57 | Day surgery (SDC) | payer MEDICARE, OTHER, SELFPAY ==
[2024-06-29 11:35] VITALS: BMI 46.0
--- NOTE | 2024-07-08 15:14 | PC.NURSE ---
Spoke with patient regarding medication XARELTO. Pt. verbalizes understanding that the last dose of XARELTO is to be taken on 07/18/2024 and the Endoscopist will instruct them when to restart after the procedure.
[2024-07-21 06:49] VITALS: BP 145/71; PULSE 70; RESP 17; TEMP 36.6; O2SAT 94; BMI 45.1
[2024-07-21] MEDS: LACTATED RINGERS 1,000 ML 30 ML IV CONT (07:02)
[2024-07-21 07:03] LABS: Glucose Point of Care 99 mg/dl (65-105)
--- NOTE | 2024-07-21 07:25 | WPDANESEPPF ---
Anes - Initial Pre Proc Eval Procedure: Operation Date: 07/21/24 08:00 Proposed Procedures p Esophagogastroduodenoscopy & Colonoscopy - Ross Ballard MD Date/Time: 07/21/24 07:25 Surgeon: Ross Ballard MD Pre Op Diagnosis: family history of cancer, GERD, anemia Patient Data Age: 78 Gender: F Height: 1.6 m Weight: 115.7 kg Last Vital Signs Temp 36.6 C 07/21/24 06:49 Pulse 70 07/21/24 06:49 Resp 17 07/21/24 06:49 BP 145/71 H 07/21/24 06:49 Pulse Ox 94 07/21/24 06:49 O2 Del Method Room Air 07/21/24 06:49 Allergies Allergy/AdvReac Type Severity Reaction Status Date / Time Sulfa (Sulfonamide Allergy Intermediate Rash Verified 07/21/24 06:45 Antibiotics) Home Medications Medication Instructions Recorded Confirmed Type metoprolol tartrate 50 mg tablet 50 mg PO Q12H 10/14/19 07/21/24 History rivaroxaban 20 mg tablet (Xarelto) 20 mg PO DAILY 10/14/19 07/21/24 History vitamins A,C,E-upjw-szuioa 4,296 1 cap PO BID 11/08/20 07/21/24 History mcg-226 mg-90 mg capsule (PreserVision AREDS) alprazolam 0.25 mg tablet (Xanax) 0.25 mg PO DAILY PRN Anxiety 02/27/22 07/21/24 History acetaminophen 650 mg 1,300 mg PO Q12H pain 05/05/22 07/21/24 History tablet,extended release metformin 500 mg tablet 500 mg PO BID #180 tabs 06/20/23 07/21/24 Rx rosuvastatin 10 mg tablet (Crestor) 10 mg PO DAILY #90 tabs 09/05/23 07/21/24 Rx gabapentin 600 mg tablet 600 mg PO TID #270 tabs 11/15/23 07/21/24 Rx torsemide 20 mg tablet 20 mg PO BID 11/21/23 07/21/24 History tramadol 50 mg tablet 50 mg PO QHS PRN pain #30 tabs 11/21/23 07/21/24 Rx empagliflozin 10 mg tablet 10 mg PO DAILY 05/29/24 07/21/24 History (Jardiance) omeprazole 20 mg capsule,delayed 20 mg PO BID #180 caps 06/09/24 07/21/24 Rx release fluoxetine 20 mg capsule (Prozac) 40 mg PO DAILY #180 caps 06/16/24 07/21/24 Rx loratadine 10 mg tablet (Allergy 10 mg PO DAILY PRN Allergy Symptoms 06/29/24 07/21/24 History Relief (loratadine)) levothyroxine 125 mcg tablet 125 mcg PO DAILY 07/02/24 07/21/24 History pramipexole 1 mg tablet 1 mg PO TID #270 tabs 07/03/24 07/21/24 Rx Laboratory Tests 07/21/24 07:00 POC Capillary Glucose 99 mg/dl (65-105) Patient hx anesthesia problems: none Family hx anesthesia problems: none Results Review: All pre-operative results and documents have been reviewed as part of the pre-operative evaluation. [facility] Past Medical History Medical History Colonoscopy planned Congestive heart failure of unknown etiology Depression Essential hypertension Gastro-esophageal reflux History of sarcoidosis Hx of arteriovenous malformation (AVM) Hypothyroidism Iron deficiency anemia CARLOS (obstructive sleep apnea) Other hyperlipidemia Paroxysmal atrial fibrillation Post-menopausal Restless leg syndrome Type 2 diabetes mellitus Unspecified atrial fibrillation Surgical History Surgical History History of arthroscopy of knee History of toe surgery Hx of shoulder surgery Family History Family History Mother Family history of lung cancer Family history of lung disease Father Family history of arthritis Family history of heart disease in male family member before age 55 Family history of cardiovascular disease Sibling Family history of malignant neoplasm of breast in first degree relative Carcinoma of colon Breast cancer Daughter Breast cancer Social History Social History Smoking status: Never smoker Second hand tobacco smoke exposure: Yes Alcohol intake: never Substance use: never Substance use type: does not use Do You Feel Safe in your Home?: Yes Lack of Transportation: No Lack of Food: Never True Current Housing: I Have
--- NOTE | 2024-07-21 07:55 | PM.HPGS ---
History of Present Illness History of Present Illness Consent: Risks, benefits, and alternatives have been discussed and questions answered. Patient agrees to proceed with procedure. Chief complaint: family history of cancer, GERD, anemia Narrative: Nikole Osorio is a 78 year old female with gerd on ppi, also dysphagia. Sister of colon cancer, last colonoscopy 2018 Review of Systems Review of Systems: All systems reviewed & are unremarkable except as noted in HPI and below PMFSH Past Medical History Medical History (Updated 07/21/24 @ 07:56 by Ross Ballard MD) Colonoscopy planned Congestive heart failure of unknown etiology Depression Essential hypertension Gastro-esophageal reflux History of sarcoidosis Hx of arteriovenous malformation (AVM) Hypothyroidism Iron deficiency anemia CARLOS (obstructive sleep apnea) Other hyperlipidemia Paroxysmal atrial fibrillation Post-menopausal Restless leg syndrome Type 2 diabetes mellitus Unspecified atrial fibrillation Surgical History Surgical History History of arthroscopy of knee History of toe surgery Hx of shoulder surgery Family History Family History Mother Family history of lung cancer Family history of lung disease Father Family history of arthritis Family history of heart disease in male family member before age 55 Family history of cardiovascular disease Sibling Family history of malignant neoplasm of breast in first degree relative Carcinoma of colon Breast cancer Daughter Breast cancer Social History Social History Smoking status: Never smoker Second hand tobacco smoke exposure: Yes Alcohol intake: never Substance use: never Substance use type: does not use Do You Feel Safe in your Home?: Yes Lack of Transportation: No Lack of Food: Never True Current Housing: I Have Housing Concerned About Future Housing: No Difficulty Paying Gas/Electric Bills: No Difficulty Paying for Meds: No Currently Unemployed: No Education: Bachelor's Degree Difficulty w/ Childcare or Family Care: YES Living arrangements: with family Spiritual care concerns: No Meds Home Medications and Allergies Home Medications Medication Instructions Recorded Confirmed Type metoprolol tartrate 50 mg tablet 50 mg PO Q12H 10/14/19 07/21/24 History rivaroxaban 20 mg tablet (Xarelto) 20 mg PO DAILY 10/14/19 07/21/24 History vitamins A,C,B-bpqk-jsedef 4,296 1 cap PO BID 11/08/20 07/21/24 History mcg-226 mg-90 mg capsule (PreserVision AREDS) alprazolam 0.25 mg tablet (Xanax) 0.25 mg PO DAILY PRN Anxiety 02/27/22 07/21/24 History acetaminophen 650 mg 1,300 mg PO Q12H pain 05/05/22 07/21/24 History tablet,extended release metformin 500 mg tablet 500 mg PO BID #180 tabs 06/20/23 07/21/24 Rx rosuvastatin 10 mg tablet (Crestor) 10 mg PO DAILY #90 tabs 09/05/23 07/21/24 Rx gabapentin 600 mg tablet 600 mg PO TID #270 tabs 11/15/23 07/21/24 Rx torsemide 20 mg tablet 20 mg PO BID 11/21/23 07/21/24 History tramadol 50 mg tablet 50 mg PO QHS PRN pain #30 tabs 11/21/23 07/21/24 Rx empagliflozin 10 mg tablet 10 mg PO DAILY 05/29/24 07/21/24 History (Jardiance) omeprazole 20 mg capsule,delayed 20 mg PO BID #180 caps 06/09/24 07/21/24 Rx release fluoxetine 20 mg capsule (Prozac) 40 mg PO DAILY #180 caps 06/16/24 07/21/24 Rx loratadine 10 mg tablet (Allergy 10 mg PO DAILY PRN Allergy Symptoms 06/29/24 07/21/24 History Relief (loratadine)) levothyroxine 125 mcg tablet 125 mcg PO DAILY 07/02/24 07/21/24 History pramipexole 1 mg tablet 1 mg PO TID #270 tabs 07/03/24 07/21/24 Rx Allergies Allergy/AdvReac Type Severity Reaction Status Date / Time Sulfa (Sulfonamide Allergy Intermediate Rash Verified 07/21/24 06:45 Antibiotics) Vital Signs Vital Signs
--- NOTE | 2024-07-21 08:06 | SUR.OPER ---
[facility] [id number]. Colon start time 805.
[2024-07-21 08:16] VITALS: BP 104/54; PULSE 66; RESP 22; O2SAT 100
[2024-07-21 08:26] VITALS: BP 132/52; PULSE 60; RESP 18; O2SAT 100
[2024-07-21 08:36] VITALS: BP 126/76; PULSE 66; RESP 20; O2SAT 100
--- NOTE | 2024-07-21 09:49 | SUR.PHASEII ---
pt and her had to wait extra time for daughter to cook pickled meat after colonoscopy.
== END 2024-07-21 09:10 | disposition home or self-care (01) ==
PROVIDERS: PCP Nurse Practitioner; Referring Provider Nurse Practitioner; Visit Provider Internal Medicine Gastroenterology
PROC: 0DJ08ZZ Inspection of Upper Intestinal Tract, Via Natural or Artificial Opening Endoscopic (ICD-10-PCS; CPT 43235; principal; 2024-07-21 08:00)
DX: Z12.11 Encounter for screening for malignant neoplasm of colon (principal); K57.30 Diverticulosis of large intestine without perforation or abscess without bleeding; K64.8 Other hemorrhoids; Z80.0 Family history of malignant neoplasm of digestive organs; K29.50 Unspecified chronic gastritis without bleeding; K21.9 Gastro-esophageal reflux disease without esophagitis; I11.0 Hypertensive heart disease with heart failure; I50.9 Heart failure, unspecified; E03.9 Hypothyroidism, unspecified; E11.9 Type 2 diabetes mellitus without complications; E78.49 Other hyperlipidemia; D50.9 Iron deficiency anemia, unspecified; G47.33 Obstructive sleep apnea (adult) (pediatric); I48.0 Paroxysmal atrial fibrillation; G25.81 Restless legs syndrome; F32.A Depression, unspecified; Z79.01 Long term (current) use of anticoagulants; Z79.84 Long term (current) use of oral hypoglycemic drugs; E66.01 Morbid (severe) obesity due to excess calories; Z68.42 Body mass index [BMI] 45.0-49.9, adult
CPT/HCPCS: 43239; G0105; 82948; 88305; J2704; J7120

== ENCOUNTER 2024-08-10 12:51 | Outpatient (CLI) | payer MEDICARE, OTHER, SELFPAY ==
[2024-08-10 14:17] LABS: Free T4 Free Thyroxine 1.34 ng/mL (0.78-2.19)
== END 2024-08-10 12:52 | disposition home or self-care (01) ==
PROVIDERS: PCP Nurse Practitioner; Visit Provider Nurse Practitioner
DX: E03.9 Hypothyroidism, unspecified (principal)
CPT/HCPCS: 36415; 84439; 84443

== ENCOUNTER 2025-03-06 16:32 | Emergency (ER) | payer MEDICARE, OTHER, SELFPAY ==
--- NOTE | ~2025-03-06 | XR_ITS ---
EXAM: XR foot RT min 3V DATE: 03/06/2025 16:56 HISTORY: injury . COMPARISON: None available. FINDINGS: Osteopenia. No fracture or dislocation. No lytic or blastic lesion. Moderate scattered deg enerative change. Plantar enthesopathy. Prominent superior enthesophyte/osteophyte along the anterior process of the talus. No erosion or periosteal change. Soft tissues within normal limits. IMPRESSION: No acute osseous finding in the right foot. Reviewed, dictated and finalized at location K.
[2025-03-06 16:33] VITALS: BP 131/88; PULSE 66; RESP 16; TEMP 36.4; O2SAT 96
--- OUTSIDE RECORDS SUMMARY | 2025-03-06 16:45 | XMS_ITS | Encounter Summary ---
Author Organization [facility] Address [address] [place] [address] Care Team Providers Care Mechanical Facilities Technician Name Role Phone Akil Chan MD Primary Care Provider [phone] Tyler Brady MD Unavailable [phone] Vinod López DO Primary Care Provider [phone] Encounter Details Date Type Department Care Team (Late st Contact Info) Description 03/05/2019 [employer] Message Enc [facility] at [facility], [facility] [address] [place] [address] Tyler Brady MD [facility]. 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 Legal Sex Female 6:14 PM CDT Gender Identity Female 11/05/2018 3:21 PM BUSINESS COMPUTERS TEACHER Sexual Orientation Not on file Occupation Industry Job Start Date Job End Date Not on file Not on file Not on file Not on file documented as of this encounter Plan of Treatment Not on file documented as of this encounter Visit Diagnoses Not on filedocumented in this encounter Care Teams Mechanical Facilities Technician Relationship Specialty Start Date End Date Akil Chan MD PCP - General INTERNAL MEDICINE 09/01/18 03/15/19 Vinod López DO [address] [facility] [address] [place] [address] PCP - General INTERNAL MEDICINE 03/16/19 Tyler Brady MD [facility] [address] [place] [address] [place] Manager Generation CARDIOVASCULAR DISEASE 09/01/18 documented as of this encounter
--- OUTSIDE RECORDS SUMMARY | 2025-03-06 16:45 | XMS_ITS | Encounter Summary ---
Author Organization [facility] Address [address] [place] [address] Care Team Providers Care Program Eligibility Specialist Name Role Phone Akil Chan MD Primary Care Provider [phone] Tyler Brady MD Unavailable [phone] Vinod López DO Primary Care Provider [phone] Encounter Details Date Type Department Care Team (Late st Contact Info) Description 02/20/2019 [employer] Message Enc [facility] at [facility], [facility] [address] [place] [address] Tyler Brady MD [facility]. 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 Thank you, LP * Jimena Chapman RN - 02/20/2019 9:10 AM CDT See note. documented in this encounter Plan of Treatment Not on file documented as of this encounter Visit Diagnoses Not on filedocumented in this encounter Care Teams Program Eligibility Specialist Relationship Specialty Start Date End Date Akil Chan MD PCP - General INTERNAL MEDICINE 09/01/18 03/15/19 Vinod López DO [address] [place] [address] PCP - General INTERNAL MEDICINE 03/16/19 Tyler Brady MD [facility]. [facility] [address] [place] [address] [place] Product Support Rep CARDIOVASCULAR DISEASE 09/01/18 documented as of this encounter
--- OUTSIDE RECORDS SUMMARY | 2025-03-06 16:45 | XMS_ITS | Encounter Summary ---
Author Organization [facility] Address [address] [facility] [address] [place] [address] Care Team Providers Care Training And Development Manager Name Role Phone Akil Chan MD Primary Care Provider [phone] Vinod López DO Primary Care Provider [phone] Thanh Alexandre MD, Flash Unavailable [phone] Encounter Details Date Type Department Care Team (Late st Contact Info) Description 02/12/2017 Orders Only [facility] ProviderLisa MD [address] [place], [place] [id number] Social History Tobacco Use Types Packs/Day Years Used Date Smoking Tobacco: Never Alcohol Use Standard Drinks/Week Comments Yes 0 (1 standard drink = 0.6 oz pur e alcohol) Comments Unknown Sex and Gender Information Value Date Recorded Sex Assigned at Not on file Legal Sex Female 3:20 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 Historical Provider [facility] LIANET SANDHU Final Result documented in this encounter Visit Diagnoses Not on filedocumented in this encounter Care Teams Training And Development Manager Relationship Specialty Start Date End Date Akil Chan MD [address] [place] [address] PCP - General 02/05/17 11/10/19 Vinod López DO [address] [place] [address] PCP - General Internal Medicine 11/11/19 Flash Law Jr., MD [address] INTERNAL MEDICINE [place], [place] [id number] Medical Oncologist/Supervisory Aide Medical Oncology 12/14/19 documented as of this encounter
--- OUTSIDE RECORDS SUMMARY | 2025-03-06 16:45 | XMS_ITS | Encounter Summary ---
Author Organization [facility] Address [address] [place] [address] Care Team Providers Care Image Archivist Name Role Phone Akil Chan MD Primary Care Provider [phone] Tyler Brady MD Unavailable [phone] Vinod López DO Primary Care Provider [phone] Encounter Details Date Type Department Care Team (Late st Contact Info) Description 12/18/2018 [employer] Message Enc [facility] at [facility], [place] [address] [place] [address] Tyler Brady MD [facility]. 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 Osorio should see whichever ethnology teacher she is most comfortable seeing and can see the soonest. Thanks DRAFTER * Jimena Chapman RN - 12/19/2018 2:15 PM CST The ethnology teacher referral has been in limbo since you sent me that copy of your referral letter onNovember 16. Since I had a pulmonary workup in [address] Anahy Renner, I called that office. I had to leave a message and never heard back so today I called the office to which you had sent the referral letter. Within a couple of hours of that, Dr. Renner's office called. Just to let youknow what is going on with two pulmonology offices calling you for records. It is easier for me to go here with Dr. Renner, plus they had an earlier appointment available. Nikole Osorio Above message from the patient. Forwarded to Dr. Brady. DRAFTER documented in this encounter Plan of Treatment Not on file documented as of this encounter Visit Diagnoses Not on filedocumented in this encounter Care Teams Image Archivist Relationship Specialty Start Date End Date Akil Chan MD PCP - General INTERNAL MEDICINE 09/01/18 03/15/19 Vinod López DO [address] [place] [address] PCP - General INTERNAL MEDICINE 03/16/19 Tyler Brady MD [facility] [address] [place] [address] Eddie Silk Screen Painter CARDIOVASCULAR DISEASE 09/01/18 documented as of this encounter
--- OUTSIDE RECORDS SUMMARY | 2025-03-06 16:45 | XMS_ITS | Encounter Summary ---
Author Organization [facility] Address [address] [place] [address] Care Team Providers Care Fountain Server Name Role Phone Akil Chan MD Primary Care Provider [phone] Tyler Brady MD Unavailable [phone] Vinod López DO Primary Care Provider [phone] Encounter Details Date Type Department Care Team (Late st Contact Info) Description 11/22/2018 Planspot Message Enc [facility] at [facility], [facility] [address] [place] [address] Tyler Brady MD [facility]. [facility] [address] [place] [address] RE: Medication Questions Social History Tobacco Use Types [...] Sex Assigned at Female 11/05/2018 3:21 PM STAFF SCIENTIST Legal Sex Female 6:14 PM CDT Gender Identity Female 11/05/2018 3:21 PM STAFF SCIENTIST Sexual Orientation Not on file Occupation Industry Job Start Date Job End Date Not on file Not on file Not on file Not on file documented as of this encounter Plan of Treatment Not on file documented as of this encounter Visit Diagnoses Not on filedocumented in this encounter Care Teams Fountain Server Relationship Specialty Start Date End Date Akil Chan MD PCP - General INTERNAL MEDICINE 09/01/18 03/15/19 Vinod López DO [address] [facility] [address] [place] [address] PCP - General INTERNAL MEDICINE 03/16/19 Tyler Brady MD [facility] [address] [place] [address] [place] Virtual Recruiter CARDIOVASCULAR DISEASE 09/01/18 documented as of this encounter
--- OUTSIDE RECORDS SUMMARY | 2025-03-06 16:45 | XMS_ITS | Encounter Summary ---
Author Organization [facility] Address [address] [place] [address] Care Team Providers Care Neuroscientist Name Role Phone Akil Chan MD Primary Care Provider [phone] Tyler Brady MD Unavailable [phone] Vinod López DO Primary Care Provider [phone] Encounter Details Date Type Department Care Team (Late st Contact Info) Description 12/01/2018 eIQ Energy Message Enc [facility] at [facility], [facility] [address] [place] [address] Tyler [facility] MD [facility] [address] [place], [place] [id number] Test Results Social History Tobacco Use Types Packs/Day Years [...] Sex Assigned at Female 11/05/2018 3:21 PM SENSOR SPECIALIST Legal Sex Female 6:14 PM CDT Gender Identity Female 11/05/2018 3:21 PM SENSOR SPECIALIST Sexual Orientation Not on file Occupation Industry Job Start Date Job End Date Not on file Not on file Not on file Not on file documented as of this encounter Progress Notes * Jimena Chapman RN - 12/01/2018 10:49 AM CST See patient record request - thank you. OR SPECIALIST documented in this encounter Plan of Treatment Not on file documented as of this encounter Visit Diagnoses Not on filedocumented in this encounter Care Teams Neuroscientist Relationship Specialty Start Date End Date Akil Chan MD PCP - General INTERNAL MEDICINE 09/01/18 03/15/19 Vinod López DO [address] [place], [place] [address] [id number] PCP - General INTERNAL MEDICINE 03/16/19 Tyler Brady MD [facility] [address] [place] [address] Assumption Cop Breaker CARDIOVASCULAR DISEASE 09/01/18 documented as of this encounter
--- OUTSIDE RECORDS SUMMARY | 2025-03-06 16:45 | XMS_ITS | Encounter Summary ---
Author Organization [facility] Address [address] [place] [address] Care Team Providers Care Railroad Car Repair Supervisor Name Role Phone Akil Chan MD Primary Care Provider [phone] Tyler Brady MD Unavailable [phone] Vinod López DO Primary Care Provider [phone] Encounter Details Date Type Department Care Team (Late st Contact Info) Description 09/08/2018 SIMTEK Message Enc [facility] at [facility], [facility] [address] [place] [address] Tyler [facility] MD [facility] [address] [place] [address] Follow Up/Update Social History Tobacco Use Types Packs/Day Years Used Date Smoking Tobacco: Never Smokeless Tobacco: Never Alcohol Use Standard Drinks/Week Comments No 0 (1 standard drink = 0.6 oz pur e alcohol) AUDIT-C Answer Date Recorded Frequency of Alcohol Consumption Never 09/02/2018 Average Number of Drinks Not on file 018 Frequency of Binge Drinking Not on file 08/06 Comments Unknown Sex and Gender Information Value Date Recorded Sex Assigned at Female 11/05/2018 3:21 PM REGIONAL SALES CONSULTANT Legal Sex Female 6:14 PM CDT Gender Identity Female 11/05/2018 3:21 PM REGIONAL SALES CONSULTANT Sexual Orientation Not on file documented as of this encounter Plan of Treatment Not on file documented as of this encounter Visit Diagnoses Not on filedocumented in this encounter Care Teams Railroad Car Repair Supervisor Relationship Specialty Start Date End Date Akil Chan MD PCP - General INTERNAL MEDICINE 09/01/18 03/15/19 Vinod López DO [address] [place] [address] 204 [place], [place] [id number] PCP - General INTERNAL MEDICINE 03/16/19 Tyler Brady MD [facility] [address] [place] [address] [place] Enterer CARDIOVASCULAR DISEASE 09/01/18 documented as of this encounter
--- OUTSIDE RECORDS SUMMARY | 2025-03-06 16:45 | XMS_ITS | Encounter Summary ---
Author Organization [facility] Address [address] [place] [address] Care Team Providers Care Terra Cotta Mold Maker Name Role Phone Akil Chan MD Primary Care Provider [phone] Tyler Brady MD Unavailable [phone] Vinod López DO Primary Care Provider [phone] Encounter Details Date Type Department Care Team (Late st Contact Info) Description 02/02/2019 Syncurity Message Enc [facility] at [facility], [facility] [address] [place] [address] Tyler Brady MD [facility]. [facility] [address] [place] [address] Follow Up/Update Social History Tobacco [...] Sex Assigned at Female 11/05/2018 3:21 PM DELIVERER OUTSIDE Legal Sex Female 6:14 PM CDT Gender Identity Female 11/05/2018 3:21 PM DELIVERER OUTSIDE Sexual Orientation Not on file Occupation Industry Job Start Date Job End Date Not on file Not on file Not on file Not on file documented as of this encounter Progress Notes * Jimena Chapman RN - 02/03/2019 4:21 PM CDT I informed the patient of the above information from Dr. Brady. The patient verbalized understanding and had no further questions. Message to the elementary secretary. * Tyler Brady MD - 02/03/2019 9:14 AM CDT I think it might be worth while to set up a 30 day MCT to get a better idea of her afib burden. Canwe arrange this? * Jimena Chapman RN - 02/02/2019 2:01 PM CDT Re: Increase propafenone from 225 to 325 mg bid. ??3 episodes of a.fib, all with the feeling of fainting on standing but never passing out. Episodes last 12 hours or so, Jan 23- (trip to the ER), , & . Lots of nausea if that can be a side effect. Hoping continuing will settle things down. Looking back, I see the 225 mg had weeks of 3 separate episodes too. Just to document current s tatus. Above message from the patient. I called the patient and she states that the message was an FYI. She increased her Propafenone at her last appt hoping it was reduce the episodes of Afib. The patient states that it is not helping. Iinformed the patient that I will notify Dr. Brady. The patient had no further questions. Message to Dr. Brady. documented in this encounter Plan of Treatment Not on file documented as of this encounter Results * MOBILE CONTINUOUS TELEMETRY (02/07/2019) us Tyler Brady MD CV VASCULAR ORDERABLES Sagrario kaye Result documented in this encounter Visit Diagnoses Diagnosis A-fib (CMS/HCC HHS/HCC)- Primary Atrial fibrillation documented in this encounter Care Teams Terra Cotta Mold Maker Relationship Specialty Start Date End Date Akil Chan MD PCP - General INTERNAL MEDICINE 09/01/18 03/15/19 Vinod López DO [address] [place] [address] 204 [place], [place] [id number] PCP - General INTERNAL MEDICINE 03/16/19 Tyler Brady MD [facility] [address] [place] [address] [place] Hydroelectric Plant Technician CARDIOVASCULAR DISEASE 09/01/18 documented as of this encounter
--- OUTSIDE RECORDS SUMMARY | 2025-03-06 16:45 | XMS_ITS | Encounter Summary ---
Author Organization [facility] Address [address] [place] [address] Care Team Providers Care Marketing Consultant Name Role Phone Akil Chan MD Primary Care Provider [phone] Tyler Brady MD Unavailable [phone] Vinod López DO Primary Care Provider [phone] Encounter Details Date Type Department Care Team (Late st Contact Info) Description 02/16/2019 APGR Green Message [facility] at [facility], [facility] [address] [place] [address] Tyler Brady MD [facility]. [facility] [address] [place], [place] [id number] Question Social History Tobacco Use Types Packs/Day Years [...] Sex Assigned at Female 11/05/2018 3:21 PM PHOTOGRAPHIC SPECIALIST Legal Sex Female 6:14 PM CDT Gender Identity Female 11/05/2018 3:21 PM PHOTOGRAPHIC SPECIALIST Sexual Orientation Not on file Occupation Industry Job Start Date Job End Date Not on file Not on file Not on file Not on file documented as of this encounter Plan of Treatment Not on file documented as of this encounter Visit Diagnoses Not on filedocumented in this encounter Care Teams Marketing Consultant Relationship Specialty Start Date End Date Akil Chan MD PCP - General INTERNAL MEDICINE 09/01/18 03/15/19 Vinod López DO 2090 [facility] [address] [place] [address] PCP - General INTERNAL MEDICINE 03/16/19 Tyler Brady MD [facility] [address] [place] [address] Turlock Production Operator CARDIOVASCULAR DISEASE 09/01/18 documented as of this encounter
--- OUTSIDE RECORDS SUMMARY | 2025-03-06 16:45 | XMS_ITS | Encounter Summary ---
Author Organization [facility] Address [address] [place] [address] Care Team Providers Care [place] Former Hand Name Role Phone Akil Chan MD Primary Care Provider [phone] Tyler Brady MD Unavailable [phone] Vinod López DO Primary Care Provider [phone] Encounter Details Date Type Department Care Team (Late st Contact Info) Description 12/18/2018 MyCiPositioningt Message Enc [facility] - [address], [address] [place] [address] Kal Delcid MD [address] [place] [address] AMARJIT [address] [place] [address] Follow Up/Update Social History Tobacco [...] Sex Assigned at Female 11/05/2018 3:21 PM VBA DEVELOPER Legal Sex Female 6:14 PM CDT Gender Identity Female 11/05/2018 3:21 PM VBA DEVELOPER Sexual Orientation Not on file Occupation Industry Job Start Date Job End Date Not on file Not on file Not on file Not on file documented as of this encounter Plan of Treatment Not on file documented as of this encounter Visit Diagnoses Not on filedocumented in this encounter Care Teams [place] Former Hand Relationship Specialty Start Date End Date Akil Chan MD PCP - General INTERNAL MEDICINE 09/01/18 03/15/19 Vinod López DO [address] [address] PCP - General INTERNAL MEDICINE 03/16/19 Tyler Brady MD [facility] [address] [place] [address] [place] Landscape And Yardwork Laborer CARDIOVASCULAR DISEASE 09/01/18 documented as of this encounter
--- OUTSIDE RECORDS SUMMARY | 2025-03-06 16:45 | XMS_ITS | Encounter Summary ---
Author Organization [facility] Address [address] [place] [address] Care Team Providers Care Air Quality Technician Name Role Phone Akil Chan MD Primary Care Provider [phone] Tyler Brady MD Unavailable [phone] Vinod López DO Primary Care Provider [phone] Encounter Details Date Type Department Care Team (Late st Contact Info) Description 02/16/2019 Jammit Message Enc [facility] at [facility], [facility] [address] [place] [address] Tyler Brayd MD [facility]. [facility] [address] [place], [place] [id number] Follow Up/Update Social History Tobacco Use Types [...] Sex Assigned at Female 11/05/2018 3:21 PM GUEST SERVICES COORDINATOR Legal Sex Female 6:14 PM CDT Gender Identity Female 11/05/2018 3:21 PM GUEST SERVICES COORDINATOR Sexual Orientation Not on file Occupation Industry Job Start Date Job End Date Not on file Not on file Not on file Not on file documented as of this encounter Plan of Treatment Not on file documented as of this encounter Visit Diagnoses Not on filedocumented in this encounter Care Teams Air Quality Technician Relationship Specialty Start Date End Date Akil Chan MD PCP - General INTERNAL MEDICINE 09/01/18 03/15/19 Vinod López DO 2090 [facility] [address] [place] [address] PCP - General INTERNAL MEDICINE 03/16/19 Tyler Brady MD [facility] [address] [place] [address] [place] Machine Cementer CARDIOVASCULAR DISEASE 09/01/18 documented as of this encounter
--- OUTSIDE RECORDS SUMMARY | 2025-03-06 16:45 | XMS_ITS | Encounter Summary ---
Author Organization [facility] Address [address] [place] [address] Care Team Providers Care Slot Technician Name Role Phone Akil Chan MD Primary Care Provider [phone] Tyler Brady MD Unavailable [phone] Vinod López DO Primary Care Provider [phone] Encounter Details Date Type Department Care Team (Late st Contact Info) Description 03/10/2019 SKY MobileMedia Message Enc [facility] at [facility], [facility] [address] [place] [address] Tyler Brady MD [facility]. [facility] [address] [place], [place] [phone] Medication Questions Social History Tobacco Use Types [...] Sex Assigned at Female 11/05/2018 3:21 PM SEED CORE OPERATOR Legal Sex Female 6:14 PM CDT Gender Identity Female 11/05/2018 3:21 PM SEED CORE OPERATOR Sexual Orientation Not on file Occupation Industry Job Start Date Job End Date Not on file Not on file Not on file Not on file documented as of this encounter Plan of Treatment Not on file documented as of this encounter Visit Diagnoses Not on filedocumented in this encounter Care Teams Slot Technician Relationship Specialty Start Date End Date Akil Chan MD PCP - General INTERNAL MEDICINE 09/01/18 03/15/19 Vinod López DO 2090 [employer] [facility] [address] [place] [address] PCP - General INTERNAL MEDICINE 03/16/19 Tyler Brady MD [facility] [address] [place] [address] Orchard Sewer Pipe Cleaner CARDIOVASCULAR DISEASE 09/01/18 documented as of this encounter
--- OUTSIDE RECORDS SUMMARY | 2025-03-06 16:45 | XMS_ITS | Encounter Summary ---
Author Organization [facility] Address [address] [place] [address] Care Team Providers Care Nuclear Physicist Name Role Phone Akil Chan MD Primary Care Provider [phone] Tyler Brady MD Unavailable [phone] Vinod López DO Primary Care Provider [phone] Encounter Details Date Type Department Care Team (Late st Contact Info) Description 09/10/2018 SHARKMARX Message Enc [facility] at [facility], [facility] [address] [place] [address] Tyler Brady MD [facility]. [facility] [address] [place], [place] [phone] Medication Questions Social History Tobacco Use Types [...] Sex Assigned at Female 11/05/2018 3:21 PM RN EXAMINER Legal Sex Female 6:14 PM CDT Gender Identity Female 11/05/2018 3:21 PM RN EXAMINER Sexual Orientation Not on file documented as of this encounter Plan of Treatment Not on file documented as of this encounter Visit Diagnoses Not on filedocumented in this encounter Care Teams Nuclear Physicist Relationship Specialty Start Date End Date Akil Chan MD PCP - General INTERNAL MEDICINE 09/01/18 03/15/19 Vinod López DO [address] [place] [address] [address] [place], [place] [id number] PCP - General INTERNAL MEDICINE 03/16/19 Tyler Brady MD [facility] [address] [place] [address] Temple Gasket Former CARDIOVASCULAR DISEASE 09/01/18 documented as of this encounter
--- OUTSIDE RECORDS SUMMARY | 2025-03-06 16:45 | XMS_ITS | Encounter Summary ---
Author Organization [facility] Address [address] [place] [address] Care Team Providers Care Induction Heat Treater Name Role Phone Akil Chan MD Primary Care Provider [phone] Tyler Brady MD Unavailable [phone] Vinod López DO Primary Care Provider [phone] Encounter Details Date Type Department Care Team (Late st Contact Info) Description 02/24/2019 [employer]Poynt [employer] Message Enc [facility] at [facility], [facility] [address] [place] [address] Tyler Brady MD [facility]. [facility] [address] [place] [address] Other Social History Tobacco Use [...] Sex Assigned at Female 11/05/2018 3:21 PM HOG TRADER Legal Sex Female 6:14 PM CDT Gender Identity Female 11/05/2018 3:21 PM HOG TRADER Sexual Orientation Not on file Occupation Industry Job Start Date Job End Date Not on file Not on file Not on file Not on file documented as of this encounter Plan of Treatment Not on file documented as of this encounter Visit Diagnoses Not on filedocumented in this encounter Care Teams Induction Heat Treater Relationship Specialty Start Date End Date Akil Chan MD PCP - General INTERNAL MEDICINE 09/01/18 03/15/19 Vinod López DO 2090 [facility] [address] [place] [address] PCP - General INTERNAL MEDICINE 03/16/19 Tyler Brady MD [facility] [address] [place] [address] [place] Credit Resolution Representative CARDIOVASCULAR DISEASE 09/01/18 documented as of this encounter
--- OUTSIDE RECORDS SUMMARY | 2025-03-06 16:45 | XMS_ITS | Encounter Summary ---
Author Organization [facility] Address [address] [place] [address] Care Team Providers Care Crisis Clinician Name Role Phone Akil Chan MD Primary Care Provider [phone] Tyler Brady MD Unavailable [phone] Vinod López DO Primary Care Provider [phone] Encounter Details Date Type Department Care Team (Late st Contact Info) Description 09/05/2018 [email or web address] Message Enc [facility] at [facility], [facility] [address] [place] [address] Tyler Brady MD [facility]. [facility] [address] [place], [place] [phone] Medication Questions Social History Tobacco Use Types [...] Sex Assigned at Female 11/05/2018 3:21 PM CIGAR MAKING MACHINE OPERATOR Legal Sex Female 6:14 PM CDT Gender Identity Female 11/05/2018 3:21 PM CIGAR MAKING MACHINE OPERATOR Sexual Orientation Not on file documented as of this encounter Plan of Treatment Not on file documented as of this encounter Visit Diagnoses Not on filedocumented in this encounter Care Teams Crisis Clinician Relationship Specialty Start Date End Date Akil Chan MD PCP - General INTERNAL MEDICINE 09/01/18 03/15/19 Vinod López DO [address] [place] [address] 204 [place], [place] [id number] PCP - General INTERNAL MEDICINE 03/16/19 Tyler Brady MD [facility] [address] [place] [address] [place] Infrastructure Consultant CARDIOVASCULAR DISEASE 09/01/18 documented as of this encounter
--- OUTSIDE RECORDS SUMMARY | 2025-03-06 16:46 | XMS_ITS | Encounter Summary ---
Author Organization [facility] Address [facility] [place] [address] Care Team Providers Care Early Intervention School Psychologist Name Role Phone Tyler Brady MD Unavailable [phone] Vinod López DO Primary Care Provider [phone] Encounter Details Date Type Department Care Team (Late st Contact Info) Description 03/23/2019 Sodraft Message [facility] at [facility], [facility] [address] [place] [address] Tyler Brady MD [facility]. [facility] [address] [place], [place] [phone] Medication Questions Social History Tobacco Use Types [...] Sex Assigned at Female 11/05/2018 3:21 PM POLICE MAGISTRATE Legal Sex Female 6:14 PM CDT Gender Identity Female 11/05/2018 3:21 PM POLICE MAGISTRATE Sexual Orientation Not on file Occupation Industry Job Start Date Job End Date Not on file Not on file Not on file Not on file documented as of this encounter Functional Status * RETIRED Are you deaf or do you have serious difficulty hearing Answer Date of Assessment Author Status No 03/17/2019 4:23 PM CDT Activ e * RETIRED Are you blind or do you have serious difficulty seeing, even when wearing glasses? Answer Date of Assessment Author Status No 03/17/2019 4:23 PM CDT Activ e * Do you have serious difficulty walking or climbing stairs? Answer Date of Assessment Author Status Yes 03/17/2019 4:23 PM CDT Moni Gardiner R N Active * Do you have difficulty dressing or bathing? Answer Date of Assessment Author Status No 03/17/2019 4:23 PM CDT Moni Gardiner R N Active * Because of a physical, mental, or emotional condition, do you have difficulty doing errands alone such as visiting a doctor's office or shopping? Answer Date of Assessment Author Status No 03/17/2019 4:23 PM CDT Moni Gardiner R N Active documented as of this encounter Mental Status * Because of a physical, mental, or emotional condition, do you have serious difficulty concentrating, remembering, or making decisions? Answer Entry Date Author Status No 03/17/2019 4:23 PM CDMoni Lee R N Active documented in this encounter Plan of Treatment Not on file documented as of this encounter Visit Diagnoses Not on filedocumented in this encounter Care Teams Early Intervention School Psychologist Relationship Specialty Start Date End Date Vinod López DO 2089 [facility] [address] [place] [address] PCP - General INTERNAL MEDICINE 03/16/19 Tyler Brady MD [facility] [address] [place] [address] [place] Fruit Dumper CARDIOVASCULAR DISEASE 09/01/18 documented as of this encounter
--- OUTSIDE RECORDS SUMMARY | 2025-03-06 16:46 | XMS_ITS | Referral Summary ---
Author Organization [facility] Address [address] [place] [address] Care Team Providers Care Graphics Manager Name Role Phone Maribel Vinod DOUGLASS Primary Care Provider [phone] Thanh Alexandre MD, Flash Unavailable [phone] Allergies Active Allergy Reactions Criticality Noted Date Comments Simvastatin Other (See comments) Low 11/18/2010 Sulfa (Sulfonamide Antibiotics) Rash Reaction: Rash, , Medications metFORMIN (GLUCOPHAGE) 500 mg tablet take 1 tablet by oral route 2 times every day with morning and evening meals 0 0 5 Active telmisartan (MICARDIS) 80 mg tablet take 1 tablet by oral route every day 0 0 5 Active multivit-mineral -iron-lutein (CENTRUM SILVER ULTRA WOMEN'S) tablet 0 0 5 Active rosuvastatin (CRESTOR) 10 mg tablet take 1 tablet by oral route every day 0 0 5 Active loratadine (CLARITIN) 10 mg tablet take 1 tablet by oral route every day 0 0 5 Active omeprazole (PriLOSEC) 20 mg capsule take 1 capsule by oral route every day before a meal 0 0 5 Active levothyroxine (SYNTHROID) 175 mcg tablet take 1 tablet by oral route every day 0 0 7 Active pramipexole (MIRAPEX) 0.25 mg tabletIndication s:Restless Legs Syndrome Take 1 tablet (0.25 mg total) by mouth 4 (four) times a day. 0 8 Active gabapentin (NEURONTIN) 300 mg capsuleIndicatio ns:Neuropathic Pain,Restless Legs Syndrome Take 1 capsule (300 mg total) by mouth 4 (four) times a day. 8 Active rivaroxaban (XARELTO) 20 mg tablet Take 1 tablet (20 mg total) by mouth daily. 90 tablet 3 8 Active flecainide (TAMBOCOR) 50 mg tablet Take 1 tablet (50 mg total) by mouth 2 (two) times a day. 180 tablet 3 8 Active ferrous sulfate 325 mg (65 mg of elemental iron) tabletIndication s:Iron Deficiency Anemia Take 1 tablet (325 mg total) by mouth 2 (two) times a day. 8 Active omega-3 fatty acids 1,000 mg capsule Take 1,000 mg by mouth daily. 0 8 Active vit C,R-Om-fbvpq-lut ein-zeaxan 136-878-21-1 pg-vegb-nx-mg capsule Take 1 capsule by mouth 2 (two) times a day. 8 Active eye lubricant combination no.1 (FRESHKOTE) 2-0.9-1.8 % drops Administer 0.05 mL (1 drop total) into affected eye(s) nightly. 0 8 Active Additional Information Patient not taking.Reported on 11/25/2019 famotidine (PEPCID) 20 mg tablet Take 1 tablet (20 mg total) by mouth 2 (two) times a day. 60 tablet 11 8 Active furosemide (LASIX) 20 mg tablet Take 1 tablet (20 mg total) by mouth 2 (two) times a day. 60 tablet 3 8 Active metoprolol (LOPRESSOR) 25 mg tablet Take 1 tablet (25 mg total) by mouth 2 (two) times a day. 60 tablet 3 8 Active potassium chloride ER (KLOR-CON,K-DUR) 20 mEq CR tablet Take 1 tablet (20 mEq total) by mouth daily. 30 tablet 3 8 Active acetaminophen (TYLENOL) 650 mg suppository Insert 650 mg into the rectum every 4 (four) hours as needed for pain Active metoprolol (LOPRESSOR) 50 mg tablet Take 50 mg by mouth 2 (two) times a day Active FLUoxetine (PROzac) 20 mg tablet Take 20 mg by mouth daily Active propafenone (RYTHMOL) 225 mg tablet Take 425 mg by mouth every 8 (eight) hours Active Active Problems Problem Noted Date Diagnosed Date Iron deficiency anemia 11/19/2019 Pain in shoulder 01/31/2017 Lung mass 06/09/2014 Disorder of lung 04/19/2014 Closed fracture of proximal end of humerus 08/03 Immunizations Immunization Administration Dates Next Due Influenza, Trivalent, High D ose, Split, Preservative Free, Intramuscular 08/25/2019,08/18/2017,09/04/2016,08/28 Pneumococcal, Unspecified 08/01/2005 Social History Tobacco Use Types Packs/Day Years Used Date Smoking Tobacco: Never Smokeless Tobacco: Never Alcohol Use Standard Drinks/Week Comments Yes 0 (1 standard drink = 0.6 oz pure alcohol) Very rarely - wine holiday meal Comments Unknown Sex and Gender Information Value Date Recorded Sex Assigned at Not on file Legal Sex Female 3:20 AM PLANER TAILER Gender Identity Female 11/18/2019 4:40 AM PLANER TAILER Sexual Orientation Straight 11/18/2019 4: 40 AM PLANER TAILER Last Filed Vital Signs Vital Sign Reading Time Taken Comments Blood Pressure 146/83 01/06/2020 2:08 PM PLANER TAILER rn notified Pulse 61 01/06/2020 2:08 PM PLANER TAILER Temperature 36.8 C (98.3 F) 01/06/2020 2:08 PM PLANER TAILER Respiratory Rate 16 01/06/2020 2:08 PM PLANER TAILER Oxygen Saturation 97% 01/06/2020 2:0 8 PM PLANER TAILER Inhaled Oxygen Concentration - - Weight 124 kg (273 lb 6.4 oz) 0 2:08 PM PLANER TAILER Height 161.3 cm (5' 3.5 ) 01/06/2020 2: 08 PM PLANER TAILER Body Mass Index 47.66 01/06/2020 2:08 PM PLANER TAILER Plan of Treatment Not on file Insurance MEDICARE FOR LIFE MEDICARE FOR LIFE MEDICARE FOR LIFE Care Teams Graphics Manager Relationship Specialty Start Date End Date Vinod López DO PCP - General Internal Medicine 11/11/19 Flash Law Jr., MD Medical Oncologist/Hardboard Coating Machine Operator Medical Oncology 12/14/19
--- OUTSIDE RECORDS SUMMARY | 2025-03-06 16:46 | XMS_ITS | Clinical Summary ---
Author Organization [facility] Address [address] [place] [address] Care Team Providers Care Basket Bottom Machine Operator Name Role Phone Vinod López Primary Care Provider [phone] Source Comments [facility],non-owned Affiliates and Associated Physician Practices is amultiple site organization consisting of ambulatory clinics and hospital sitesin [place], [place], [place] and [place]. This disclosure is being madepursuant to the Care Everywhere program and may not contain all information available regarding this patient. Last updated 18.[facility] Allergies Active Allergy Reactions Criticality Noted Date Comments Sulfa Drugs Rash Medium 04/03/2019 Medications * Be aware that medications may not be up to date on this document. Alwaysverify current medications with the patient. levothyroxine (SYNTHROID) 175 MCG tablet Take 175 mcg by mouth daily before breakfast Active famotidine (PEPCID) 20 MG tablet Take 20 mg by mouth 2 times daily Active gabapentin (NEURONTIN) 300 MG capsule Take 300 mg by mouth 4 times daily Active Loratadine 10 MG Take 10 mg by mouth once daily as needed Active metFORMIN (GLUCOPHAGE) 500 MG tablet Take 500 mg by mouth 2 times daily with morning and evening meal Active multivitamin daily tablet Take 1 tablet by mouth daily with food Active omeprazole (PRILOSEC) 20 MG capsule Take 20 mg by mouth daily before breakfast Active pramipexole (MIRAPEX) 0.25 MG tablet Take 0.25 mg by mouth 4 times daily Active rosuvastatin (CRESTOR) 10 MG tablet Take 10 mg by mouth at bedtime Active Multiple Vitamins-Minerals (OCUVITE PRESERVISION PO) Take 1 tablet by mouth 2 times daily Active ALPRAZolam (XANAX) 0.25 MG tablet Take 0.25 mg by mouth 3 times daily as needed for Anxiety Active furosemide (LASIX) 20 MG tablet Take 1 tablet by mouth 2 times daily 180 tablet 3 0 Active metoprolol tartrate (LOPRESSOR) 50 MG tablet Take 1 tablet by mouth 2 times daily 180 tablet 3 0 Active rivaroxaban (XARELTO) 20 MG tablet Take 1 tablet by mouth daily with food 90 tablet 3 0 Active propafenone SR 12hr (RYTHMOL SR) 325 MG capsule Take 1 capsule by mouth every 12 hours 60 capsule 5 0 Active Active Problems Problem Noted Date Diagnosed Date PAF (paroxysmal atrial fibrillation) 04/13/2019 Social History Tobacco Use Types Packs/Day Years Used Date Smoking Tobacco: Never Smokeless Tobacco: Never Comments Unknown Sex and Gender Information Value Date Recorded Sex Assigned at Not on file Legal Sex Female 8:43 PM CONTINUING EDUCATION INSTRUCTOR Gender Identity Not on file Sexual Orientation Not on file Last Filed Vital Signs Vital Sign Reading Time Taken Comments Blood Pressure 136/82 11/07/2020 10:57 AM CONTINUING EDUCATION INSTRUCTOR Pulse 70 11/07/2020 10:57 AM CONTINUING EDUCATION INSTRUCTOR Temperature - - Respiratory Rate 12 11/07/2020 10:5 7 AM CONTINUING EDUCATION INSTRUCTOR Oxygen Saturation - - Inhaled Oxygen Concentration - - Weight 124.4 kg (274 lb 3.2 oz) 021 10:57 AM CONTINUING EDUCATION INSTRUCTOR Height 160 cm (5' 3 ) 11/07/2020 10:57 AM CONTINUING EDUCATION INSTRUCTOR Body Mass Index 48.57 11/07/2020 10:57 AM CONTINUING EDUCATION INSTRUCTOR Plan of Treatment Health Maintenance Due Date Last Done Comments BONE DENSITY TESTING 1945 MEDICARE AWV 12 MONTHS 1945 DTAP/TDAP/TD VACCINES (1 - Tdap) 1964 PNEUMOCOCCAL VACCINE 50+ (1 of 1 - PCV) 1995 ZOSTER VACCINE (1 of 2) 1995 Respiratory Syncytial Virus (RSV) Vaccine Pt: or over 60 yrs (1 - 1-dose 75+ series) 2020 COVID-19 VACCINE ( - season) 2024 08/27/2021, 02/22/2021, 01/25/2021 DEPRESSION SCREENING 11/04/2024 INFLUENZA VACCINE (Season Ended) 2025 09/02/2022, 09/20/2021, 08/27/2020, Additional history exists HEPATITIS B VACCINE Aged Out No longe r eligible based on patient's age to complete this topic HIB VACCINE Aged Out No longer eligi ble based on patient's age to complete this topic HPV VACCINE Aged Out No longer eligi ble based on patient's age to complete this topic MENINGOCOCCAL (Group B) VACCINE SHARED DECISION-MAKING Aged Out No longer eligible based on patient's age to complete this topic MENINGOCOCCAL GROUPS A/C/Y/W VACCINE Aged Out No longer eligible based on patient's age to complete this topic Insurance MEDICARE [facility] MEDICARE SELF PAY NO INSURANCE Member Subscriber Plan / Payer (Ef fective for All Dates) Name:Alessandra Sam Member ID:Not on file Relation to Subscriber:Not on file Name:ALESSANDRA SAM Subscriber ID:Not on file (Home) Address: [address] [place] [id number] Payer ID:Not on file Group ID:Not on file Type:Self Pay Address: [place], [place] Care Teams Basket Bottom Machine Operator Relationship Specialty Start Date End Date Vinod López DO [address] [place], [place] [id number] PCP - General Internal Medicine 04/03/19
--- OUTSIDE RECORDS SUMMARY | 2025-03-06 16:46 | XMS_ITS | Encounter Summary ---
Author Organization [facility] Address [address] [place] [address] Care Team Providers Care Customer Operations Associate Name Role Phone Akil Chan MD Primary Care Provider [phone] Tyler Brady MD Unavailable [phone] Vinod López DO Primary Care Provider [phone] Encounter Details Date Type Department Care Team (Late st Contact Info) Description 09/03/2018 [facility] at [address] [address] [place] Social History Tobacco Use Types Packs/Day Years [...] Sex Assigned at Female 11/05/2018 3:21 PM MAINTENANCE WORKER SWIMMING POOL Legal Sex Female 6:14 PM CDT Gender Identity Female 11/05/2018 3:21 PM MAINTENANCE WORKER SWIMMING POOL Sexual Orientation Not on file documented as of this encounter Plan of Treatment Not on file documented as of this encounter Procedures Procedure Name Priority Date/Time Associated Diagnosis Comments PROTIME (OUTSIDE LAB) Routine 08/17/2018 CBC (OUTSIDE LAB) Routine 08/17/2018 BASIC METABOLIC PANEL Routine 08/17/2018 HEPATIC FUNCTION PANEL Routine 07/15/2018 FOLIC ACID SERUM Routine 07/15/2018 THYROID STIM HORMONE TSH Routine 07/15/2018 CBC (OUTSIDE LAB) Routine 07/14/2018 documented in this encounter Results * BASIC METABOLIC PANEL (08/17/2018) SODIUM S/P/B 138 POTASSIUM S/P/B 4.0 CO2 30 CHLORIDE S/P/B 99 GLUCOSE 99 mg/dL CALCIUM S/P/B 9.4 BUN 11 CREATININE S/P/B 0.70 0.5 - 1.0 EGFR NON-AFR. AMER. >60 <=90 08/17/2018 [facility] Abstract LABORATORY Final Result * PROTIME (OUTSIDE LAB) (08/17/2018) PROTIME 14.0 INR 1.1 08/17/2018 us Doc [facility] Abstract LAB-OUTSIDE/ABSTRACTED Final Result * CBC (OUTSIDE LAB) (08/17/2018) WBC 7.9 HGB 13.6 HCT 41.9 PLT 224 08/17/2018 us Doc [facility] Abstract LAB-OUTSIDE/ABSTRACTED Final Result * HEPATIC FUNCTION PANEL (07/15/2018) ALBUMIN S/P/B 3.5 3.5 - 5.0 ALKALINE PHOSPHATASE S/P/B 66 ALT 39 AST 20 BILIRUBIN DIRECT S/P/B 0.0 BILIRUBIN TOTAL S/P/B 0.6 TOTAL PROTEIN S/P/B 6.6 07/15/2018 us Doc [facility] Abstract LABORATORY Final Result * FOLIC ACID SERUM (07/15/2018) FOLATE >20 07/15/2018 us Doc [facility] Abstract LABORATORY Final Result * THYROID STIM HORMONE, TSH (07/15/2018) TSH 0.929 07/15/2018 us Doc [facility] Abstract LABORATORY Final Result * CBC (OUTSIDE LAB) (07/14/2018) WBC 8.8 HGB 10.9 HCT 32.9 PLT 237 07/14/2018 us Doc [facility] Abstract LAB-OUTSIDE/ABSTRACTED Final Result documented in this encounter Visit Diagnoses Not on filedocumented in this encounter Care Teams Customer Operations Associate Relationship Specialty Start Date End Date Akil Chan MD PCP - General INTERNAL MEDICINE 09/01/18 03/15/19 Vinod López DO [address] [facility] [address] [place] [address] PCP - General INTERNAL MEDICINE 03/16/19 Tyler Brady MD [facility] [address] [place] [address] Given Talent Acquisition Sourcer CARDIOVASCULAR DISEASE 09/01/18 documented as of this encounter
--- OUTSIDE RECORDS SUMMARY | 2025-03-06 16:46 | XMS_ITS | Encounter Summary ---
Author Organization [facility] Address [address] [place] [address] Care Team Providers Care Biochemistry Specialist Name Role Phone Tyler Brady MD Unavailable Vinod López DO Primary Care Provider [phone] Encounter Details Date Type Department Care Team (Late st Contact Info) Description 03/16/2019 Wrapp Message [facility] at [facility], [facility] [address] [place] [address] Tyler Brady MD [facility]. [facility] [address] [place], [place] [id number] Follow Up/Update Social History Tobacco Use Types [...] Sex Assigned at Female 11/05/2018 3:[address] ABSTRACTOR Legal Sex Female 6:14 PM CDT Gender Identity Female 11/05/2018 3:[address] ABSTRACTOR Sexual Orientation Not on file Occupation Industry Job Start Date Job End Date Not on file Not on file Not on file Not on file documented as of this encounter Functional Status documented as of this encounter Mental Status * Question Answer Entry Date Author Status Because of a physical, mental, or emotional condition, do you have serious difficulty concentrating, remembering, or making decisions? No 03/17/2019 4:23 PM CDT Moni Gardiner RN Active documented in this encounter Plan of Treatment Not on file documented as of this encounter Visit Diagnoses Not on filedocumented in this encounter Care Teams Biochemistry Specialist Relationship Specialty Start Date End Date Vinod López DO [address] [address] [place] [address] PCP - General INTERNAL MEDICINE 03/16/19 Tyler Brady MD [facility] [address] [place] [address] [place] Bottler Helper CARDIOVASCULAR DISEASE 09/01/18 documented as of this encounter
--- OUTSIDE RECORDS SUMMARY | 2025-03-06 16:46 | XMS_ITS | Encounter Summary ---
Author Organization [facility] Address [address] [place] [address] Care Team Providers Care Broomcorn Grader Name Role Phone Akil Chan MD Primary Care Provider [phone] Tyler Brady MD Unavailable [phone] Vinod López DO Primary Care Provider [phone] Encounter Details Date Type Department Care Team (Late st Contact Info) Description 09/03/2018 [place] Message [facility] at [facility], [facility] [address] [place] [address] Tyler Brady MD [facility]. [facility] [address] [place] [address] Follow Up/Update Social History Tobacco [...] Sex Assigned at Female 11/05/2018 3:21 PM PROTECTIVE SIGNAL INSTALLER HELPER Legal Sex Female 6:14 PM CDT Gender Identity Female 11/05/2018 3:21 PM PROTECTIVE SIGNAL INSTALLER HELPER Sexual Orientation Not on file documented as of this encounter Plan of Treatment Not on file documented as of this encounter Visit Diagnoses Not on filedocumented in this encounter Care Teams Broomcorn Grader Relationship Specialty Start Date End Date Akil Chan MD PCP - General INTERNAL MEDICINE 09/01/18 03/15/19 Vinod López DO [address] [place] [address] [address] [place], [place] [id number] PCP - General INTERNAL MEDICINE 03/16/[address] [facility] [address] [place] [address] [place] Conduit Mechanic CARDIOVASCULAR DISEASE 09/01/18 documented as of this encounter
--- OUTSIDE RECORDS SUMMARY | 2025-03-06 16:46 | XMS_ITS | Clinical Summary ---
Author Organization [facility] Address [address] [place] [address] Care Team Providers Care It Solutions Architect Name Role Phone Maribel Vinod Primary Care Provider Thanh Alexandre MD, Flash Unavailable [phone] Allergies Active Allergy Reactions Criticality Noted Date [...] by mouth daily. 0 8 Active vit C,P-Dl-rdpyy-lut ein-zeaxan [id number] uf-gkko-ax-mg capsule Take 1 capsule by mouth 2 [...] Preservative Free, Intramuscular 08/25/2019,08/18/2017,09/04/2016,08/28 Pneumococcal, Unspecified 08/01/2005 Surgical History Surgery Date Site/Laterality Comments KNEE ARTHROSCOPY Arthroscopy knee OTHER SURGICAL HISTORY Humerus: ORIF TONSILLECTOMY Tonsillectomy HERNIA REPAIR Hernia repair FRACTURE SURGERY 08/13/2013 JOINT REPLACEMENT 07/08/2018 TUBAL LIGATION 11/04/1978 - 11/03/1979 Medical History Medical History Date Comments Hx Other Medical tubal ligation Hx Other Medical D&C Hx Other Medical Sarcoidosis Hx Other Medical 1998 Hallux joint re placement; Laterality: left Hx Other Medical 1998 redo hallux j oint replacement; Laterality: left Hx Other Medical 2011 2nd toe lesser metatarsal shortening; Laterality: left Hx Other Medical 2012 Humerus; Latera lity: right Hx Other Medical 2013 PLate removal h umerus; Laterality: right Hyperlipidemia Hyperlipidemia Anemia Anemia Hx Other Medical Neuropathy- fee t and hands Hx Other Medical back pain Disorder of thyroid Thyroid dise ase Hypertension Hypertension GERD (gastroesophageal reflux disease) Anxiety Arthritis Cataract Diabetes mellitus (HCC) Heart disease 07/15/2018 Neuromuscular disorder (HCC) Family History Medical History Relation Name Comments Heart disease Brother Robin Anemia Daughter 1 Mariangel Jo Anemia Daughter 2 Jimena Jo Arthritis Father Wilbert Lopez Heart attack Father Wilbert Lopez Myocardia l infarction; Cause of : Myocardial infarction Heart disease Father Wilbert Hoffmany Cancer Mother Katharina Lopez Lung cancer Mother Katharina Lopez Cancer, lung; Cause of : Cancer, lung Arthritis Mother's Sister Nikole Rodriguez Heart disease Other 1 Family history of Heart problems; Cancer Other 2 Family history of Cancer, unknown; Lung disease Other 3 Family history of Lung problems; Arthritis Other 4 Family history of Arthritis; Hypertension Other 5 Family history of Hypertension; Arthritis Sister 1 Keshia Hamlin Heart disease Sister 1 Keshia Murray Voci Arthritis Sister 2 Bell Kam Cancer Sister 3 Corinne Whitakers Anemia Son Bill Osorio Relation Name Status Comments Brother Robin Daughter 1 Mariangel Osorio Daughter 2 Jimena Osorio Father Wilbert Lopez (Age 71) Mother Katharina Lopez (Age 63) Mother's Sister Nikole Rodriguez Other 1 Other 2 Other 3 Other 4 Other 5 Sister 1 Keshia Clarki Sister 2 Bell Kam Sister 3 Corinne Whitakers Son Bill Osorio Social History Tobacco Use Types Packs/Day Years Used Date Smoking Tobacco: Never Smokeless Tobacco: Never Alcohol Use Standard Drinks/Week Comments Yes 0 (1 standard drink = 0.6 oz pure alcohol) Very rarely - wine holiday meal Comments Unknown Sex and Gender Information Value Date Recorded Sex Assigned at Not on file Legal Sex Female 3:20 AM REDUCING MACHINE OPERATOR Gender Identity Female 11/18/2019 4:40 AM REDUCING MACHINE OPERATOR Sexual Orientation Straight 11/18/2019 4: 40 AM REDUCING MACHINE OPERATOR Obstetrics History Last Filed Vital Signs Vital Sign Reading Time Taken Comments Blood Pressure 146/83 01/06/2020 2:08 PM REDUCING MACHINE OPERATOR rn notified Pulse 61 01/06/2020 2:08 PM REDUCING MACHINE OPERATOR Temperature 36.8 C (98.3 F) 01/06/2020 2:08 PM REDUCING MACHINE OPERATOR Respiratory Rate 16 01/06/2020 2:08 PM REDUCING MACHINE OPERATOR Oxygen Saturation 97% 01/06/2020 2:0 8 PM REDUCING MACHINE OPERATOR Inhaled Oxygen Concentration - - Weight 124 kg (273 lb 6.4 oz) 0 2:08 PM REDUCING MACHINE OPERATOR Height 161.3 cm (5' 3.5 ) 01/06/2020 2: 08 PM REDUCING MACHINE OPERATOR Body Mass Index 47.66 01/06/2020 2:08 PM REDUCING MACHINE OPERATOR Plan of Treatment Not on file Insurance MEDICARE FOR LIFE MEDICARE FOR LIFE MEDICARE FOR LIFE Care Teams It Solutions Architect Relationship Specialty Start Date End Date Vinod López DO PCP - General Internal Medicine 11/11/19 Flash Law Jr., MD Medical Oncologist/Railroad Conductor Medical Oncology 12/14/19
--- OUTSIDE RECORDS SUMMARY | 2025-03-06 16:46 | XMS_ITS | Encounter Summary ---
Author Organization [facility] Address [address] [place] [address] Care Team Providers Care Patents Examiner Name Role Phone Tyler Brady MD Unavailable [phone] Vinod López DO Primary Care Provider [phone] Encounter Details Date Type Department Care Team (Late st Contact Info) Description 03/19/2019 CarFin Message [email or web address] at [facility], [facility] [address] [place] [address] Tyler [facility] MD [facility] [address] [place], [place] [id number] Follow Up/Update Social History Tobacco Use Types [...] Sex Assigned at Female 11/05/2018 3:21 PM CORSAGE MAKER Legal Sex Female 6:14 PM CDT Gender Identity Female 11/05/2018 3:21 PM CORSAGE MAKER Sexual Orientation Not on file Occupation Industry [...] on filedocumented in this encounter Care Teams Patents Examiner Relationship Specialty Start Date End Date Vinod López DO [address] [facility] [address] [place] [address] PCP - General INTERNAL MEDICINE 03/16/19 Tyler Brady MD [facility] [address] [place] [address] [place] Metal Flow Coordinator CARDIOVASCULAR DISEASE 09/01/18 documented as of this encounter
--- OUTSIDE RECORDS SUMMARY | 2025-03-06 16:46 | XMS_ITS | Encounter Summary ---
Author Organization [facility] Address [facility] [place] [address] Care Team Providers Care Floor Sanding Machine Operator Name Role Phone Tyler Brady MD Unavailable [phone] Vinod López DO Primary Care Provider [phone] Encounter Details Date Type Department Care Team (Late st Contact Info) Description 03/27/2019 [place] Message [facility] at [facility], [facility] [address] [place] [address] Tyler Brady MD [facility]. [facility] [address] [place], [place] [id number] Other Social History Tobacco Use Types Packs/Day [...] Assigned at Female 11/05/2018 3:21 PM BUSINESS SALES CONSULTANT Legal Sex Female 6:14 PM CDT Gender Identity Female 11/05/2018 3:21 PM BUSINESS SALES CONSULTANT Sexual Orientation Not on file Occupation Industry [...] on filedocumented in this encounter Care Teams Floor Sanding Machine Operator Relationship Specialty Start Date End Date Vinod López DO [address] [facility] [address] [place] [address] PCP - General INTERNAL MEDICINE 03/16/19 Tyler Brady MD [facility] [address] [place] [address] [place] Senior Marketing Data Analyst CARDIOVASCULAR DISEASE 09/01/18 documented as of this encounter
--- OUTSIDE RECORDS SUMMARY | 2025-03-06 16:46 | XMS_ITS | Encounter Summary ---
Author Organization [facility] Address [address] [place] [address] Care Team Providers Care Fraud Analyst Name Role Phone Akil Chan MD Primary Care Provider [phone] Tyler Brady MD Unavailable [phone] Vinod López DO Primary Care Provider [phone] Encounter Details Date Type Department Care Team (Late st Contact Info) Description 11/03/2018 [email or web address] Message Enc [facility] at [facility], [facility] [address] [place] [address] Tyler Brady MD [facility]. [facility] [address] [place] [address] Follow Up/Update Social History Tobacco [...] Sex Assigned at Female 11/05/2018 3:21 PM BINGO ATTENDANT Legal Sex Female 6:14 PM CDT Gender Identity Female 11/05/2018 3:21 PM BINGO ATTENDANT Sexual Orientation Not on file Occupation Industry Job Start Date Job End Date Not on file Not on file Not on file Not on file documented as of this encounter Plan of Treatment Not on file documented as of this encounter Visit Diagnoses Not on filedocumented in this encounter Care Teams Fraud Analyst Relationship Specialty Start Date End Date Akil Chan MD PCP - General INTERNAL MEDICINE 09/01/18 03/15/19 Vinod López DO [address] [facility] [address] [place] [address] PCP - General INTERNAL MEDICINE 03/16/19 Tyler Brady MD [facility] [address] [place] [address] [place] Valve Mechanic CARDIOVASCULAR DISEASE 09/01/18 documented as of this encounter
--- OUTSIDE RECORDS SUMMARY | 2025-03-06 16:46 | XMS_ITS | Encounter Summary ---
Author Organization [facility] Address [address] [place] [address] Care Team Providers Care Repairer Controller Tester Name Role Phone Akil Chan MD Primary Care Provider [phone] Tyler Brady MD Unavailable [phone] Vinod López DO Primary Care Provider [phone] Encounter Details Date Type Department Care Team (Late st Contact Info) Description 10/13/2018 [place] Message [facility] at [facility], [facility] [address] [place] [address] Tyler Brady MD [facility]. [facility] [address] [place], [place] [id number] Medication Questions Social History Tobacco Use Types [...] Sex Assigned at Female 11/05/2018 3:21 PM CORE WINDER Legal Sex Female 6:14 PM CDT Gender Identity Female 11/05/2018 3:21 PM CORE WINDER Sexual Orientation Not on file Occupation Industry Job Start Date Job End Date Not on file Not on file Not on file Not on file documented as of this encounter Plan of Treatment Not on file documented as of this encounter Visit Diagnoses Not on filedocumented in this encounter Care Teams Repairer Controller Tester Relationship Specialty Start Date End Date Akil Chan MD PCP - General INTERNAL MEDICINE 09/01/18 03/15/19 Vinod López DO [address] [employer] [facility] [address] [place] [address] PCP - General INTERNAL MEDICINE 03/16/19 Tyler Brady MD [facility] [address] [place] [address] [place] Manager Decision Support CARDIOVASCULAR DISEASE 09/01/18 documented as of this encounter
--- OUTSIDE RECORDS SUMMARY | 2025-03-06 16:46 | XMS_ITS | Clinical Summary ---
Author Organization [facility] Address [address] [place] [address] Care Team Providers Care Corporate Relations Director Name Role Phone Tyler Brady MD Unavailable [phone] Vinod López DO Primary Care Provider [phone] Allergies Active Allergy Reactions Criticality Noted Date Comments Sulfa Antibiotics Rash Low Medications gabapentin 300 MG capsule Take 1 capsule (300 mg total) by mouth 4 (four) times daily. 90 capsule 8 Active levothyroxine (SYNTHROID) 175 MCG tablet Take 1 tablet (175 mcg total) by mouth every morning. 30 tablet 8 Active metFORMIN 500 MG tablet Take 1 tablet (500 mg total) by mouth 2 (two) times daily with meals. 60 tablet 8 Active Polyvinyl Alcohol-Povidon e 2.7-2 % Solution Apply 1 drop to eye 2 (two) times a day. freschkote eye drops 8 Active Telmisartan (MICARDIS) 80 MG Tab Take 80 mg by mouth every morning. 8 Active pramipexole 0.25 MG tablet Take 1 tablet (0.25 mg total) by mouth 4 (four) times a day. 90 tablet 8 Active Omeprazole 20 MG Tab EC Take 1 tablet by mouth 2 (two) times a day. 30 tablet 8 Active famotidine 20 MG tablet Take 1 tablet (20 mg total) by mouth 2 (two) times daily. 60 tablet 8 Active Multiple Vitamins-Minera ls (CENTRUM SILVER 50+WOMEN) Tab Take 1 tablet by mouth daily. 8 Active Multiple Vitamins-Minera ls (PRESERVISION AREDS) Tab Take 1 tablet by mouth 2 (two) times a day. 8 Active Inchelium 3 1000 MG Cap Take 1 tablet by mouth daily. 90 capsule 8 Active ALPRAZolam 0.25 MG tablet Take 1 tablet (0.25 mg total) by mouth nightly as needed for Sleep. 8 Active furosemide 20 MG tablet Take 2 tablets by mouth every morning, 1 tablet every evening 8 Active rivaroxaban 20 MG Tab tablet Take 1 tablet (20 mg total) by mouth daily with supper. 90 tablet 1 9 Active acetaminophen 325 MG tablet Take 2 tablets (650 mg total) by mouth 2 (two) times a day. 9 Active metoprolol tartrate 50 MG tablet Take 1 tablet (50 mg total) by mouth 2 (two) times daily. 180 tablet 1 9 Active rosuvastatin 20 MG tablet Take 1 tablet (20 mg total) by mouth nightly at bedtime. 9 Active propafenone SR 425 MG 12 hr capsule Take 1 capsule (425 mg total) by mouth 2 (two) times daily. 180 capsule 1 9 Active Active Problems Problem Noted Date Diagnosed Date CARLOS (obstructive sleep apnea) 03/31/2019 Encounter for monitoring sotalol therapy 019 PAF (paroxysmal atrial fibrillation) ([facility]) 11/05/2018 Mitral regurgitation 09/02/2018 Diabetes ([facility]) 09/02/2018 Class 3 severe obesity due t o excess calories without serious comorbidity with body mass index (BMI) of 45.0 to 49.9 in adult 09/02/2018 GERD (gastroesophageal reflux disease) 8 A-fib ([facility]) Essential hypertension Family History Medical History Relation Comments [place] Father Relation Status Comments Father (Age 71) Mother (Age 61) Social History Tobacco Use Types Packs/Day Years [...] Sex Assigned at Female 11/05/2018 3:21 PM INCLUSION TEACHER Legal Sex Female 6:14 PM CDT Gender Identity Female 11/05/2018 3:21 PM INCLUSION TEACHER Sexual Orientation Not on file Occupation Industry Job Start Date Job End Date Not on file Not on file Not on file Not on file Last Filed Vital Signs Vital Sign Reading Time Taken Comments Blood Pressure 140/70 03/31/2019 1:45 PM CDT Pulse 77 03/31/2019 1:45 PM CDT Temperature 36.3 C (97.4 F) 03/18/2019 10:56 AM CDT Respiratory Rate 16 03/18/2019 10:56 AM CDT Oxygen Saturation 92% 03/31/2019 1:45 PM CDT Inhaled Oxygen Concentration - - Weight 122.5 kg (270 lb) 03/31/2019 1:45 PM CDT Height 160 cm (5' 3 ) 03/31/2019 1:45 PM CDT Body Mass Index 47.83 03/31/2019 1:45 PM CDT Plan of Treatment Health Maintenance Due Date Last Done Comments Kidney Health Evaluation 1945 Hemoglobin A1C 1945 Lipid Panel 1945 Diabetes: Retinopathy Eye Exam 1963 Hepatitis C 1963 DTaP, Tdap and Td Vaccines ( 1 - Tdap) 1964 Pneumococcal Vaccine: 50+ Ye ars (1 of 2 - PCV) 1964 Zoster Vaccines (1 of 2) 1995 Annual Medicare Wellness Visit 2010 Dexa Scan (General) 2010 RSV Immunization or 60+ Years (1 - 1-dose 75+ series) 2020 COVID-19 Vaccine ( - 2023-2 5 season) 2024 Colorectal Cancer Screening FIT/FOBT (1 Year) Discontinued 10/25/2018 Meningococcal B Vaccine Aged Out No l onger eligible based on patient's age to complete this topic Meningococcal Vaccine Aged Out No mary alvin eligible based on patient's age to complete this topic RSV Immunizations Under 20 Months Aged Out No longer eligible based on patient's age to complete this topic Medical Devices Implanted Type Area Repairer Screen Crusher Device Identifier Shelf Expiration Date Model / Serial / Lot Right Atrial Lead-03/17/2019 Implanted:Qty: 1 on 03/17/2019 by Tyler Brady MD Lead Implant Heart [facility] 01/01/20228TC-4 6 / [id number] / Right Ventricular Lead-03/17/2019 Implanted:Qty: 1 on 03/17/2019 by Tyler Brady MD Lead Implant Heart [facility] 02/01/20222087TC-5 2 / [id number] / Sj Pacemaker-03/17 Implanted:Qty: 1 on 03/17/2019 by Tyler Brady MD Pacemaker Left: Chest [facility] 09/03/2020 [id number] / [id number] / Procedures Procedure Name Priority Date/Time Associated Diagnosis Comments OCCULT BLOOD, FECES STAT 10/25/2018 9 :14 AM INCLUSION TEACHER from Last 3 Months or Most Recently Relevant to Health Maintenance Results * OCCULT BLOOD, FECES (10/25/2018 9:14 AM INCLUSION TEACHER) OCCULT BLOOD FECAL NEGATIVE NEGATIVE 10/25/2018 9:29 AM INCLUSION TEACHER [facility] STOOL SPECIMEN / Unknown 10/25/2018 9:14 AM INCLUSION TEACHER Delbert Chowdary MD BODY FLUIDS AND STOOLS ORDERABLE S Final Result [facility] [address] [place] [address], [place] [phone] from Last 3 Months or Most Recently Relevant to Health Maintenance Insurance MEDICARE [facility] MEDICARE [employer] Advance Directives Documents on File Type Date Recorded Patient Fractionation Supervisor Expl anation Advance Directives and Living Will 03/18/2019 7:44 AM Signed 11-30-13[facility] * Full Code (Latest Code Status on File) Date Activated Date Inactivated Comments 03/18/2019 2:01 AM 03/18/2019 2:52 PM * Full Code Date Activated Date Inactivated Comments 11/05/2018 2:25 PM 11/06/2018 5:57 PM * Full Code Date Activated Date Inactivated Comments 09/18/2018 1:31 PM 09/18/2018 4:45 PM Care Teams Corporate Relations Director Relationship Specialty Start Date End Date Vinod López DO [address] [place] [address] PCP - General INTERNAL MEDICINE 03/16/19 Tyler Brady MD [facility] [address] [place] [address] [place] Polymerization Engineer CARDIOVASCULAR DISEASE 09/01/18
--- OUTSIDE RECORDS SUMMARY | 2025-03-06 16:46 | XMS_ITS | Encounter Summary ---
Author Organization [facility] Address [address] [place] [address] Care Team Providers Care Lending Advisor Name Role Phone Akil Chan MD Primary Care Provider [phone] Tyler Brady MD Unavailable [phone] Vinod López DO Primary Care Provider [phone] Reason for Visit * Reason Onset Date Comments Concerns 10/22/2018 Encounter Details Date Type Department Care Team (Late st Contact Info) Description 10/22/2018 Save [employer] Message [facility] at [facility], [facility] [address] [place] [address] Tyler Brady MD [facility] [address] [place] [address] Follow Up/Update Social History Tobacco [...] Sex Assigned at Female 11/05/2018 3:21 PM STUDENT MINISTRY PASTOR Legal Sex Female 6:14 PM CDT Gender Identity Female 11/05/2018 3:21 PM STUDENT MINISTRY PASTOR Sexual Orientation Not on file Occupation Industry Job Start Date Job End Date Not on file Not on file Not on file Not on file documented as of this encounter Progress Notes * Jimena Chapman RN - 10/22/2018 4:14 PM CST I informed the patient of the above information from Dr. Brady. The patient states that she had received a couple calls about the monitor asking if she was having any problems. The patient was not sure when she should push the button. I informed the patient that I was not too familiar with the monitor because we have a device clinic that manages the monitor, however from my understanding she will push the button when she has any symptoms. I informed the patient that the device clinic will call to schedule and to call our office with any questions or concerns. The patient verbalized understanding and had no further questions. Message to the secretary to board of commissioners. ENT MINISTRY PASTOR * Tyler Brady MD - 10/22/2018 9:11 AM CST Damon Hess, Can you get in touch with Mrs. Osorio today to let her know we can re-order a 2 week event monitor to see if atrial fibrillation is in fact the cause of her episodes? It sounds like her BP is ok and her rates are controlled so I'm not certain that her atrial fibrillation is causing her ongoing symptoms. Maybe there is something else we need to investigate, but I need to confirm what her rhythm is during her episodes. I'm happy to see her in clinic again after an event monitor is completed. Also regarding the admission for sotalol load, If her event monitor does not show any recurrent atrial fibrillation we could potentially continue course and forgo admission for sotalol. If I do see a reasonable AF burden, we will need to set the admission up after the holidays when its convenient to her. Andrés Avalos ENT MINISTRY PASTOR * Jimena Chapman RN - 10/22/2018 8:54 AM CST I am prompted to write this concerning lightheadedness and even balance. Blood pressure generally runs low 100s systolic and 60s-low 70s diastolic (lowest 49) when there is no arrhythmia detected on my Omron machine. As for the Sotalol, there was no word from the hospital as of the weekend. Sleep lab called and I still have PT for my reverse total shoulder replacement. So I scheduled both. Company is coming the . Hospital did indeed call Saturday at 7:20 am. As I told them, I simply cannot plan another week around a maybe call on Saturday, not to mention being off the [employer] for 72 hours. With no guarantee, it appears this uncertain plan will not work for me - at least not with my PT and the holidays. Maybe we need another appointment to talk about all this again. You should have the sleep study results soon and we can go from there. I am puzzled that all this happened so suddenly after the shoulder replacement on Jul 08, and that I am so weak, unsteady, and lightheaded all the time now - all new since Jul 08. Nikole Osorio Above message from the patient. Message sent to Dr. Brady. ENT MINISTRY PASTOR documented in this encounter Plan of Treatment Not on file documented as of this encounter Visit Diagnoses Not on filedocumented in this encounter Care Teams Lending Advisor Relationship Specialty Start Date End Date Akil Chan MD PCP - General INTERNAL MEDICINE 09/01/18 03/15/19 Vinod López DO [address] [facility] [address] [place], [place] [id number] PCP - General INTERNAL MEDICINE 03/16/19 Tyler Brady MD [facility]. [facility] [address] [place] [address] [place] Division Chair CARDIOVASCULAR DISEASE 09/01/18 documented as of this encounter
--- OUTSIDE RECORDS SUMMARY | 2025-03-06 16:46 | XMS_ITS | Encounter Summary ---
Author Organization [facility] Address [address] [place] [address] Care Team Providers Care Cloud Consultant Name Role Phone Akil Chan MD Primary Care Provider Tyler Brady MD Unavailable [phone] Vinod López DO Primary Care Provider [phone] Encounter Details Date Type Department Care Team (Late st Contact Info) Description 10/13/2018 Alchip Message [facility] at [facility], [facility] [address] [place] [address] Tyler Brady MD [facility]. [facility] [address] [place], [place] [id number] Medication Questions Social History Tobacco Use Types [...] Sex Assigned at Female 11/05/2018 3:21 PM REJOINER Legal Sex Female 6:14 PM CDT Gender Identity Female 11/05/2018 3:21 PM REJOINER Sexual Orientation Not on file Occupation Industry Job Start Date Job End Date Not on file Not on file Not on file Not on file documented as of this encounter Plan of Treatment Not on file documented as of this encounter Visit Diagnoses Not on filedocumented in this encounter Care Teams Cloud Consultant Relationship Specialty Start Date End Date Akil Chan MD PCP - General INTERNAL MEDICINE 09/01/18 03/15/19 Vinod López DO [address] [employer] [facility] [address] [place] [address] PCP - General INTERNAL MEDICINE 03/16/19 Tyler Brady MD [facility] [address] [place] [address] [place] Otr Owner Operator Truck Driver CARDIOVASCULAR DISEASE 09/01/18 documented as of this encounter
--- OUTSIDE RECORDS SUMMARY | 2025-03-06 16:46 | XMS_ITS | Encounter Summary ---
Author Organization [facility] Address [address] [place] [address] Care Team Providers Care Die Designer Apprentice Name Role Phone Akil Chan MD Primary Care Provider [phone] Tyler Brady MD Unavailable [phone] Vinod López DO Primary Care Provider [phone] Encounter Details Date Type Department Care Team (Late st Contact Info) Description 09/17/2018 Hospital Orders Only [facility] at [facility], [address] [id number] Roger Mcnamara MD [facility]. [address] [address] Social History Tobacco Use Types Packs/Day Years [...] Sex Assigned at Female 11/05/2018 3:21 PM SUPERVISOR MOTOR VEHICLE ASSEMBLY Legal Sex Female 6:14 PM CDT Gender Identity Female 11/05/2018 3:21 PM SUPERVISOR MOTOR VEHICLE ASSEMBLY Sexual Orientation Not on file documented as of this encounter Plan of Treatment Not on file documented as of this encounter Visit Diagnoses Not on filedocumented in this encounter Care Teams Die Designer Apprentice Relationship Specialty Start Date End Date Akil Chan MD PCP - General INTERNAL MEDICINE 09/01/18 03/15/19 Vinod López DO [address] [place] [address] [address] [place] [address] PCP - General INTERNAL MEDICINE 03/16/19 Tyler Brady MD [facility] [address] [place] [address] [place] Pipefitter Helper CARDIOVASCULAR DISEASE 09/01/18 documented as of this encounter
--- OUTSIDE RECORDS SUMMARY | 2025-03-06 16:46 | XMS_ITS | Encounter Summary ---
Author Organization [facility] Address [facility] [place] [address] Care Team Providers Care Senior Drafter Name Role Phone Tyler Brady MD Unavailable [phone] Vinod López DO Primary Care Provider [phone] Encounter Details Date Type Department Care Team (Late st Contact Info) Description 03/23/2019 [employer] Message [email or web address] at [facility], [facility] [address] [place] [address] Tyler Brady MD [facility]. [facility] [address] [place], [place] [id number] Medication Questions Social History Tobacco Use Types [...] Sex Assigned at Female 11/05/2018 3:21 PM TERRA COTTA ROOFER HELPER Legal Sex Female 6:14 PM CDT Gender Identity Female 11/05/2018 3:21 PM TERRA COTTA ROOFER HELPER Sexual Orientation Not on file Occupation Industry [...] on filedocumented in this encounter Care Teams Senior Drafter Relationship Specialty Start Date End Date Vinod López DO [address] [facility] [address] [place] [address] PCP - General INTERNAL MEDICINE 03/16/19 Tyler Brady MD [facility] [address] [place] [address] [place] [employer] Haul Operator CARDIOVASCULAR DISEASE 09/01/18 documented as of this encounter
--- OUTSIDE RECORDS SUMMARY | 2025-03-06 16:46 | XMS_ITS | Encounter Summary ---
Author Organization [facility] Address [address] [place] [address] Care Team Providers Care Review Consultant Name Role Phone Akil Chan MD Primary Care Provider [phone] Tyler Brady MD Unavailable [phone] Vinod López DO Primary Care Provider [phone] Encounter Details Date Type Department Care Team (Late st Contact Info) Description 10/22/2018 Inktd Message Enc [facility] at [facility], [facility] [address] [place] [address] Tyler Brady MD [facility]. [facility] [address] [place] [address] Follow Up/Update Social History Tobacco [...] Sex Assigned at Female 11/05/2018 3:21 PM STOCK DEALER Legal Sex Female 6:14 PM CDT Gender Identity Female 11/05/2018 3:21 PM STOCK DEALER Sexual Orientation Not on file Occupation Industry Job Start Date Job End Date Not on file Not on file Not on file Not on file documented as of this encounter Progress Notes * Jimena Chapman RN - 10/22/2018 8:55 AM CST Re wording in last message lightheadedness and even balance -- even as in also, i.e. issues with lightheadedness and feeling off-balance. No falls, no fainting. Nikole Above message from the patient. Message sent to Dr. Brady. K DEALER documented in this encounter Plan of Treatment Not on file documented as of this encounter Visit Diagnoses Not on filedocumented in this encounter Care Teams Review Consultant Relationship Specialty Start Date End Date Akil Chan MD PCP - General INTERNAL MEDICINE 09/01/18 03/15/19 Vinod López DO [address] [facility] [address] [place], [place] [id number] PCP - General INTERNAL MEDICINE 03/16/19 Tyler Brady MD [facility]. [place] [address] [place] [address] [place] Ems Manager CARDIOVASCULAR DISEASE 09/01/18 documented as of this encounter
--- OUTSIDE RECORDS SUMMARY | 2025-03-06 17:45 | XMS_ITS | Encounter Summary ---
Author Organization [facility] Address [address] [place] [address] Care Team Providers Care Assistant Curator Name Role Phone Akil Chan MD Primary Care Provider [phone] Tyler Brady MD Unavailable [phone] Vinod López DO Primary Care Provider [phone] Encounter Details Date Type Department Care Team (Late st Contact Info) Description 03/10/2019 [employer] Message Enc [facility] at [facility], [facility] [address] [place] [address] Tyler Brady MD [facility]. [facility] [address] [place], [place] [id number] Medication Questions Social History Tobacco Use Types [...] Sex Assigned at Female 11/05/2018 3:21 PM MEDICAID BILLING CLERK Legal Sex Female 6:14 PM CDT Gender Identity Female 11/05/2018 3:21 PM MEDICAID BILLING CLERK Sexual Orientation Not on file Occupation Industry Job Start Date Job End Date Not on file Not on file Not on file Not on file documented as of this encounter Plan of Treatment Not on file documented as of this encounter Visit Diagnoses Not on filedocumented in this encounter Care Teams Assistant Curator Relationship Specialty Start Date End Date Akil Chan MD PCP - General INTERNAL MEDICINE 09/01/18 03/15/19 Vinod López DO [address] [employer] [facility] [address] [place] [address] PCP - General INTERNAL MEDICINE 03/16/19 Tyler Brady MD [facility] [address] [place] [address] [place] Marketing Communications Coordinator CARDIOVASCULAR DISEASE 09/01/18 documented as of this encounter
--- OUTSIDE RECORDS SUMMARY | 2025-03-06 17:45 | XMS_ITS | Encounter Summary ---
Author Organization [facility] Address [address] [place] [address] Care Team Providers Care Qc Manager Name Role Phone Akil Chan MD Primary Care Provider [phone] Tyler Brady MD Unavailable [phone] Vinod López DO Primary Care Provider [phone] Encounter Details Date Type Department Care Team (Late st Contact Info) Description 11/22/2018 KidBook Message Enc [facility] [facility] at [facility], [facility] [address] [place] [address] Tyler Brady MD [facility]. [facility] [address] [place] [address] RE: Medication Questions Social History [...] Sex Assigned at Female 11/05/2018 3:21 PM ELECTRONIC REPAIR TROUBLESHOOTER Legal Sex Female 6:14 PM CDT Gender Identity Female 11/05/2018 3:21 PM ELECTRONIC REPAIR TROUBLESHOOTER Sexual Orientation Not on file Occupation Industry Job Start Date Job End Date Not on file Not on file Not on file Not on file documented as of this encounter Plan of Treatment Not on file documented as of this encounter Visit Diagnoses Not on filedocumented in this encounter Care Teams Qc Manager Relationship Specialty Start Date End Date Akil Chan MD PCP - General INTERNAL MEDICINE 09/01/18 03/15/19 Vinod López DO [facility] [address] [place] [address] PCP - General INTERNAL MEDICINE 03/16/19 Tyler Brady MD [facility] [address] [place] [address] [place] Watch And Clock Maker And Repairer CARDIOVASCULAR DISEASE 09/01/18 documented as of this encounter
--- OUTSIDE RECORDS SUMMARY | 2025-03-06 17:45 | XMS_ITS | Encounter Summary ---
Author Organization [facility] Address [address] [place] [address] Care Team Providers Care Publicity Consultant Name Role Phone Akil Chan MD Primary Care Provider [phone] Tyler Brady MD Unavailable [phone] Vinod López DO Primary Care Provider [phone] Encounter Details Date Type Department Care Team (Late st Contact Info) Description 11/03/2018 Microstrip Planar Antennas Message Enc [place] [facility] at [facility], [facility] [address] [place] [address] Tyler Brady MD [facility]. [facility] [address] [place] [address] Follow Up/Update Social History Tobacco [...] Sex Assigned at Female 11/05/2018 3:21 PM DATABASE ADMIN Legal Sex Female 6:14 PM CDT Gender Identity Female 11/05/2018 3:21 PM DATABASE ADMIN Sexual Orientation Not on file Occupation Industry Job Start Date Job End Date Not on file Not on file Not on file Not on file documented as of this encounter Plan of Treatment Not on file documented as of this encounter Visit Diagnoses Not on filedocumented in this encounter Care Teams Publicity Consultant Relationship Specialty Start Date End Date Akil Chan MD PCP - General INTERNAL MEDICINE 09/01/18 03/15/19 Vinod López DO [address] [facility] [address] [place] [address] PCP - General INTERNAL MEDICINE 03/16/19 Tyler Brady MD [facility] [address] [place] [address] [place] Electrical Assembly Supervisor CARDIOVASCULAR DISEASE 09/01/18 documented as of this encounter
--- OUTSIDE RECORDS SUMMARY | 2025-03-06 17:45 | XMS_ITS | Encounter Summary ---
Author Organization [facility] Address [address] [place] [address] Care Team Providers Care Final Expense Agent Name Role Phone Akil Chan MD Primary Care Provider Tyler Brady MD Unavailable [phone] Vinod López DO Primary Care Provider [phone] Encounter Details Date Type Department Care Team (Late st Contact Info) Description 02/02/2019 Sandlot [employer] Message Enc [facility] [place] [facility] at [facility], [facility] [address] [place] [address] Tyler Brady MD [facility]. [facility] [address] [place] [address] Follow Up/Update Social History Tobacco [...] Sex Assigned at Female 11/05/2018 3:21 PM RAKER BUFFING WHEEL Legal Sex Female 6:14 PM CDT Gender Identity Female 11/05/2018 3:21 PM RAKER BUFFING WHEEL Sexual Orientation Not on file Occupation Industry [...] had no further questions. Message to the scrap piler. * Tyler Brady MD - 02/03/2019 9:14 [...] fibrillation documented in this encounter Care Teams Final Expense Agent Relationship Specialty Start Date End Date Akil Chan MD PCP - General INTERNAL MEDICINE 09/01/18 03/15/19 Vinod López DO [address] [place] [address] [address] [place], [place] [id number] PCP - General INTERNAL MEDICINE 03/16/19 Tyler Brady MD [facility] [address] [place] [address] [place] Sales Solutions Representative CARDIOVASCULAR DISEASE 09/01/18 documented as of this encounter
--- OUTSIDE RECORDS SUMMARY | 2025-03-06 17:45 | XMS_ITS | Encounter Summary ---
Author Organization [facility] Address [facility] [place] [address] Care Team Providers Care Butter Wrapper Name Role Phone Tyler Brady MD Unavailable [phone] Vinod López DO Primary Care Provider [phone] Encounter Details Date Type Department Care Team (Late st Contact Info) Description 03/23/2019 SimulScribe Message [facility] at [facility], [facility] [address] [place] [address] Tyler Brady MD [facility]. [facility] [address] [place], [place] [id number] Medication Questions Social History Tobacco Use Types [...] Sex Assigned at Female 11/05/2018 3:21 PM SKILLED LABOR Legal Sex Female 6:14 PM CDT Gender Identity Female 11/05/2018 3:21 PM SKILLED LABOR Sexual Orientation Not on file Occupation Industry [...] on filedocumented in this encounter Care Teams Butter Wrapper Relationship Specialty Start Date End Date Vinod López DO 2089 [facility] [address] [place] [address] PCP - General INTERNAL MEDICINE 03/16/19 Tyler Brady MD [facility] [address] [place] [address] [place] Bag Filler CARDIOVASCULAR DISEASE 09/01/18 documented as of this encounter
--- OUTSIDE RECORDS SUMMARY | 2025-03-06 17:45 | XMS_ITS | Encounter Summary ---
Author Organization [facility] Address [address] [place] [address] Care Team Providers Care Svp Name Role Phone Akil Chan MD Primary Care Provider [phone] Tyler Brady MD Unavailable [phone] Vinod López DO Primary Care Provider [phone] Encounter Details Date Type Department Care Team (Late st Contact Info) Description 02/20/2019 [employer] Message Enc [place] [facility] at [facility], [facility] [address] [place] [address] Tyler Brady MD [facility]. [facility] [address] [place] [address] Other Social History Tobacco Use [...] Sex Assigned at Female 11/05/2018 3:21 PM CLINICAL DOCUMENTATION MANAGER Legal Sex Female 6:14 PM CDT Gender Identity Female 11/05/2018 3:21 PM CLINICAL DOCUMENTATION MANAGER Sexual Orientation Not on file Occupation Industry Job Start Date Job End Date Not on file Not on file Not on file Not on file documented as of this encounter Progress Notes * Margarita Mittal RN - 02/20/2019 10:13 AM CDT Phoned pt, as requested, 6 silicone strips mailed to her address ([facility]). Thank you, LP * Jimena Chapman RN - 02/20/2019 9:10 AM CDT See note. documented in this encounter Plan of Treatment Not on file documented as of this encounter Visit Diagnoses Not on filedocumented in this encounter Care Teams Svp Relationship Specialty Start Date End Date Akil Chan MD PCP - General INTERNAL MEDICINE 09/01/18 03/15/19 Vinod López DO [address] [place] [address] PCP - General INTERNAL MEDICINE 03/16/19 Tyler Brady MD [facility]. [facility] [address] [place] [address] [place] Action Finisher CARDIOVASCULAR DISEASE 09/01/18 documented as of this encounter
--- OUTSIDE RECORDS SUMMARY | 2025-03-06 17:45 | XMS_ITS | Encounter Summary ---
Author Organization [facility] Address [address] [place] [address] Care Team Providers Care Fruit Picker Machine Operator Name Role Phone Akil Chan MD Primary Care Provider [phone] Tyler Brday MD Unavailable [phone] Vinod López DO Primary Care Provider [phone] Encounter Details Date Type Department Care Team (Late st Contact Info) Description 09/03/2018 Abstract [facility] at [address] [address] Torres Oshea MA Social History Tobacco Use Types Packs/Day [...] Sex Assigned at Female 11/05/2018 3:21 PM CUT TO LENGTH OPERATOR Legal Sex Female 6:14 PM CDT Gender Identity Female 11/05/2018 3:21 PM CUT TO LENGTH OPERATOR Sexual Orientation Not on file documented [...] on filedocumented in this encounter Care Teams Fruit Picker Machine Operator Relationship Specialty Start Date End Date Akil Chan MD PCP - General INTERNAL MEDICINE 09/01/18 03/15/19 Vinod López DO 2089 [facility] 204 [place] [address] PCP - General INTERNAL MEDICINE 03/16/19 Tyler Brady MD [facility] [address] [place] [address] [place] Assistant Men'S Lacrosse Coach CARDIOVASCULAR DISEASE 09/01/18 documented as of this encounter
--- OUTSIDE RECORDS SUMMARY | 2025-03-06 17:45 | XMS_ITS | Encounter Summary ---
Author Organization [facility] Address [address] [place] [address] Care Team Providers Care Stripper And Taper Name Role Phone Akil Chan MD Primary Care Provider [phone] Tyler Brady MD Unavailable [phone] Vinod López DO Primary Care Provider [phone] Reason for Visit * Reason Onset Date Comments Concerns 10/22/2018 Encounter Details Date Type Department Care Team (Late st Contact Info) Description 10/22/2018 Dash [employer] Message [facility] at [facility], [facility] [address] [place] [address] Tyler Brady MD [facility] [address] [place] [address] Follow Up/Update Social History Tobacco [...] Sex Assigned at Female 11/05/2018 3:21 PM BEHAVIORAL INTERVENTIONIST Legal Sex Female 6:14 PM CDT Gender Identity Female 11/05/2018 3:21 PM BEHAVIORAL INTERVENTIONIST Sexual Orientation Not on file Occupation Industry [...] had no further questions. Message to the medical records secretary. VIORAL INTERVENTIONIST * Tyler Brady MD - 10/22/2018 9:11 [...] when its convenient to her. Andrés Avalos VIORAL INTERVENTIONIST * Jimena Chapman RN - 10/22/2018 8:54 [...] the patient. Message sent to Dr. Brady. VIORAL INTERVENTIONIST documented in this encounter Plan of Treatment Not on file documented as of this encounter Visit Diagnoses Not on filedocumented in this encounter Care Teams Stripper And Taper Relationship Specialty Start Date End Date Akil Chan MD PCP - General INTERNAL MEDICINE 09/01/18 03/15/19 Vinod López DO 0 [facility] [address] [place], [place] [address] PCP - General INTERNAL MEDICINE 03/16/19 Tyler Brady MD [facility]. [facility] [address] [place] [address] Rodney Tyre Finisher And Examiner CARDIOVASCULAR DISEASE 09/01/18 documented as of this encounter
--- OUTSIDE RECORDS SUMMARY | 2025-03-06 17:45 | XMS_ITS | Clinical Summary ---
Author Organization [facility] Address [address] [place] [address] Care Team Providers Care Pararescue Craftsman Name Role Phone Tyler Brady MD Unavailable [phone] Vinod López DO Primary Care Provider [phone] Allergies Active Allergy Reactions Criticality Noted Date [...] 2 (two) times a day. 8 Active [place] 3 1000 MG Cap Take 1 tablet [...] sotalol therapy 019 PAF (paroxysmal atrial fibrillation) ([facility]) 11/05/2018 Mitral regurgitation 09/02/2018 Diabetes ([facility]) 09/02/2018 Class 3 severe obesity due t o excess calories without serious comorbidity with body mass index (BMI) of 45.0 to 49.9 in adult 09/02/2018 GERD (gastroesophageal reflux disease) 8 A-fib ([facility]) Essential hypertension Family History Medical History Relation Comments PR Father Relation Status Comments Father (Age 71) [...] Sex Assigned at Female 11/05/2018 3:21 PM SERVICE DESK ANALYST Legal Sex Female 6:14 PM CDT Gender Identity Female 11/05/2018 3:21 PM SERVICE DESK ANALYST Sexual Orientation Not on file Occupation Industry [...] this topic Medical Devices Implanted Type Area Guest Advisor Device Identifier Shelf Expiration Date Model / Serial / Lot Right Atrial Lead-03/17/2019 Implanted:Qty: 1 on 03/17/2019 by Tyler Brady MD Lead Implant Heart [facility] 01/01/20228TC-4 6 / [id number] / Right Ventricular Lead-03/17/2019 Implanted:Qty: 1 on 03/17/2019 by Tyler Brady MD Lead Implant Heart [facility] 02/01/20222087TC-5 2 / [id number] / Sj Pacemaker-03/17 Implanted:Qty: 1 on 03/17/2019 by Tyler Brady MD Pacemaker Left: Chest [facility] 09/03/2020 [id number] / [id number] / Procedures Procedure Name Priority Date/Time Associated Diagnosis Comments OCCULT BLOOD, FECES STAT 10/25/2018 9 :14 AM SERVICE DESK ANALYST from Last 3 Months or Most Recently Relevant to Health Maintenance Results * OCCULT BLOOD, FECES (10/25/2018 9:14 AM SERVICE DESK ANALYST) OCCULT BLOOD FECAL NEGATIVE NEGATIVE 10/25/2018 9:29 AM SERVICE DESK ANALYST [facility] STOOL SPECIMEN / Unknown 10/25/2018 9:14 AM SERVICE DESK ANALYST Delbert Chowdary MD BODY FLUIDS AND STOOLS ORDERABLE S Final Result [facility] [address] [place] [address], [place] [phone] from Last 3 Months or Most Recently Relevant to Health Maintenance Insurance MEDICARE [facility] MEDICARE [employer] Advance Directives Documents on File Type Date Recorded Patient Supply Assistant Expl anation Advance Directives and Living Will 03/18/2019 7:44 AM Signed 11-30-13[facility] Care * Full Code (Latest Code Status on File) Date Activated Date Inactivated Comments 03/18/2019 2:01 AM 03/18/2019 2:52 PM * Full Code Date Activated Date Inactivated Comments 11/05/2018 2:25 PM 11/06/2018 5:57 PM * Full Code Date Activated Date Inactivated Comments 09/18/2018 1:31 PM 09/18/2018 4:45 PM Care Teams Pararescue Craftsman Relationship Specialty Start Date End Date Vinod López DO [address] [place] [address] PCP - General INTERNAL MEDICINE 03/16/19 Tyler Brady MD [facility] [address] [place] [address] [place] Ship'S Officer CARDIOVASCULAR DISEASE 09/01/18
--- OUTSIDE RECORDS SUMMARY | 2025-03-06 17:45 | XMS_ITS | Encounter Summary ---
Author Organization [facility] Address [facility] [place] [address] Care Team Providers Care Managed Care Analyst Name Role Phone Tyler Brady MD Unavailable [phone] Vinod López DO Primary Care Provider [phone] Encounter Details Date Type Department Care Team (Late st Contact Info) Description 03/23/2019 Academic Management Services Message [employer] [facility] at [facility], [facility] [address] [place] [address] Tyler Brady MD [facility]. [facility] [address] [place], [place] [id number] Medication Questions Social History Tobacco Use Types [...] Sex Assigned at Female 11/05/2018 3:21 PM SEWER HEAD Legal Sex Female 6:14 PM CDT Gender Identity Female 11/05/2018 3:21 PM SEWER HEAD Sexual Orientation Not on file Occupation Industry [...] Date Author Status No 03/17/2019 4:23 PM CDMoin Lee R N Active documented in this encounter Plan of Treatment Not on file documented as of this encounter Visit Diagnoses Not on filedocumented in this encounter Care Teams Managed Care Analyst Relationship Specialty Start Date End Date Vinod López DO 2089 [facility] [address] [place] [address] PCP - General INTERNAL MEDICINE 03/16/19 Tyler Brady MD [facility] [address] [place] [address] [place] General Agent CARDIOVASCULAR DISEASE 09/01/18 documented as of this encounter
--- OUTSIDE RECORDS SUMMARY | 2025-03-06 17:45 | XMS_ITS | Encounter Summary ---
Author Organization [facility] Address [address] [place] [address] Care Team Providers Care Mounted Police Officer Name Role Phone Akil Chan MD Primary Care Provider [phone] Tyler Brady MD Unavailable [phone] Vinod López DO Primary Care Provider [phone] Encounter Details Date Type Department Care Team (Late st Contact Info) Description 09/17/2018 Hospital Orders Only [facility] at [facility], [address] [address] Roger Mcnamara MD [facility]. [address] [address] Social History Tobacco Use Types [...] Sex Assigned at Female 11/05/2018 3:21 PM MANAGER INTENSIVE CARE UNIT Legal Sex Female 6:14 PM CDT Gender Identity Female 11/05/2018 3:21 PM MANAGER INTENSIVE CARE UNIT Sexual Orientation Not on file documented as of this encounter Plan of Treatment Not on file documented as of this encounter Visit Diagnoses Not on filedocumented in this encounter Care Teams Mounted Police Officer Relationship Specialty Start Date End Date Akil Chan MD PCP - General INTERNAL MEDICINE 09/01/18 03/15/19 Vinod López DO [address] [place] [address] 204 [place] [address] PCP - General INTERNAL MEDICINE 03/16/19 Tyler Brady MD [facility] [address] [place] [address] [place] Oil Change Technician CARDIOVASCULAR DISEASE 09/01/18 documented as of this encounter
--- OUTSIDE RECORDS SUMMARY | 2025-03-06 17:45 | XMS_ITS | Encounter Summary ---
Author Organization [facility] Address [address] [place] [address] Care Team Providers Care Bridal Gown Fitter Name Role Phone Akil Chan MD Primary Care Provider [phone] Tyler Brady MD Unavailable [phone] Vinod López DO Primary Care Provider [phone] Encounter Details Date Type Department Care Team (Late st Contact Info) Description 10/22/2018 J[employer]some [employer] Message Enc [place] [facility] at [facility], [facility] [address] [place] [address] Tyler Brady MD [facility]. [facility] [address] [place] [address] Follow Up/Update Social History Tobacco [...] Sex Assigned at Female 11/05/2018 3:21 PM ZIG ZAG SPRING MACHINE OPERATOR Legal Sex Female 6:14 PM CDT Gender Identity Female 11/05/2018 3:21 PM ZIG ZAG SPRING MACHINE OPERATOR Sexual Orientation Not on file Occupation [...] the patient. Message sent to Dr. Brady. ZAG SPRING MACHINE OPERATOR documented in this encounter Plan of Treatment Not on file documented as of this encounter Visit Diagnoses Not on filedocumented in this encounter Care Teams Bridal Gown Fitter Relationship Specialty Start Date End Date Akil Chan MD PCP - General INTERNAL MEDICINE 09/01/18 03/15/19 Vinod López DO 2090 [facility] [address] [place], [place] [id number] PCP - General INTERNAL MEDICINE 03/16/19 Tyler Brady MD [facility]. [place] [address] [place] [address] [place] Religious Educator CARDIOVASCULAR DISEASE 09/01/18 documented as of this encounter
--- OUTSIDE RECORDS SUMMARY | 2025-03-06 17:45 | XMS_ITS | Clinical Summary ---
Author Organization [facility] Address [address] [place] [address] Care Team Providers Care Is Analyst Name Role Phone Maribel Vinod Primary Care Provider [phone] Thanh Alexandre MD, Flash Unavailable [phone] Allergies Active Allergy Reactions Criticality Noted Date [...] by mouth daily. 0 8 Active vit C,Q-Io-zojgt-lut ein-zeaxan 609-138-81-1 et-fezb-oj-mg capsule Take 1 capsule by mouth 2 [...] 2 Bell Kam Cancer Sister 3 Corinne [place] Anemia Son Bill Osorio Relation Name Status Comments Brother Robin Daughter 1 Mariangel Osorio Daughter 2 Jimena Osorio Father Wilbert Lopez (Age 71) Mother Katharina Lopez (Age 63) Mother's Sister Nikole Rodriguez Other 1 Other 2 Other 3 Other 4 Other 5 Sister 1 Keshia Clarki Sister 2 Bell Kam Sister 3 Corinne [place] Son Bill Osorio Social History Tobacco Use Types Packs/Day Years Used Date Smoking Tobacco: Never Smokeless Tobacco: Never Alcohol Use Standard Drinks/Week Comments Yes 0 (1 standard drink = 0.6 oz pure alcohol) Very rarely - wine holiday meal Comments Unknown Sex and Gender Information Value Date Recorded Sex Assigned at Not on file Legal Sex Female 3:20 AM BUILDING ILLUMINATING ENGINEER Gender Identity Female 11/18/2019 4:40 AM BUILDING ILLUMINATING ENGINEER Sexual Orientation Straight 11/18/2019 4: 40 AM BUILDING ILLUMINATING ENGINEER Obstetrics History Last Filed Vital Signs Vital Sign Reading Time Taken Comments Blood Pressure 146/83 01/06/2020 2:08 PM BUILDING ILLUMINATING ENGINEER rn notified Pulse 61 01/06/2020 2:08 PM BUILDING ILLUMINATING ENGINEER Temperature 36.8 C (98.3 F) 01/06/2020 2:08 PM BUILDING ILLUMINATING ENGINEER Respiratory Rate 16 01/06/2020 2:08 PM BUILDING ILLUMINATING ENGINEER Oxygen Saturation 97% 01/06/2020 2:0 8 PM BUILDING ILLUMINATING ENGINEER Inhaled Oxygen Concentration - - Weight 124 kg (273 lb 6.4 oz) 0 2:08 PM BUILDING ILLUMINATING ENGINEER Height 161.3 cm (5' 3.5 ) 01/06/2020 2: 08 PM BUILDING ILLUMINATING ENGINEER Body Mass Index 47.66 01/06/2020 2:08 PM BUILDING ILLUMINATING ENGINEER Plan of Treatment Not on file Insurance MEDICARE FOR LIFE MEDICARE FOR LIFE MEDICARE FOR LIFE Care Teams Is Analyst Relationship Specialty Start Date End Date Vinod López DO PCP - General Internal Medicine 11/11/19 Flash Law Jr., MD Medical Oncologist/Dairy Machine Operator Farmworker Medical Oncology 12/14/19
--- OUTSIDE RECORDS SUMMARY | 2025-03-06 17:45 | XMS_ITS | Encounter Summary ---
Author Organization [facility] Address [address] [place] [address] Care Team Providers Care Software Verification Engineer Name Role Phone Akil Chan MD Primary Care Provider [phone] Tyler Brady MD Unavailable [phone] Vinod López DO Primary Care Provider [phone] Encounter Details Date Type Department Care Team (Late st Contact Info) Description 02/16/2019 [employer] Message [employer] [facility] at [facility], [facility] [address] [place] [address] Tyler Brady MD [facility]. [facility] [address] [place], [place] [address] Question Social History Tobacco Use Types Packs/Day [...] Sex Assigned at Female 11/05/2018 3:21 PM LUGGAGE LINER Legal Sex Female 6:14 PM CDT Gender Identity Female 11/05/2018 3:21 PM LUGGAGE LINER Sexual Orientation Not on file Occupation Industry Job Start Date Job End Date Not on file Not on file Not on file Not on file documented as of this encounter Plan of Treatment Not on file documented as of this encounter Visit Diagnoses Not on filedocumented in this encounter Care Teams Software Verification Engineer Relationship Specialty Start Date End Date Akil Chan MD PCP - General INTERNAL MEDICINE 09/01/18 03/15/19 Vinod López DO 2090 [facility] [address] [place] [address] PCP - General INTERNAL MEDICINE 03/16/19 Tyler Brady MD [facility] [address] [place] [address] [place] Allied Health Professional CARDIOVASCULAR DISEASE 09/01/18 documented as of this encounter
--- OUTSIDE RECORDS SUMMARY | 2025-03-06 17:45 | XMS_ITS | Encounter Summary ---
Author Organization [facility] Address [address] [place] [address] Care Team Providers Care Sales Recruitment Specialist Name Role Phone Akil Chan MD Primary Care Provider [phone] Tyler Brady MD Unavailable [phone] Vinod López DO Primary Care Provider [phone] Encounter Details Date Type Department Care Team (Late st Contact Info) Description 03/05/2019 [employer] Message Enc [facility] at [facility], [facility] [address] [place] [address] Tyler Brady MD [facility]. [facility] [address] [place], [place] [id number] Medication Questions Social History Tobacco Use Types [...] Sex Assigned at Female 11/05/2018 3:21 PM WELLFIELD TECHNICIAN Legal Sex Female 6:14 PM CDT Gender Identity Female 11/05/2018 3:21 PM WELLFIELD TECHNICIAN Sexual Orientation Not on file Occupation Industry Job Start Date Job End Date Not on file Not on file Not on file Not on file documented as of this encounter Plan of Treatment Not on file documented as of this encounter Visit Diagnoses Not on filedocumented in this encounter Care Teams Sales Recruitment Specialist Relationship Specialty Start Date End Date Akil Chan MD PCP - General INTERNAL MEDICINE 09/01/18 03/15/19 Vinod López DO [address] [facility] [address] [place] [address] PCP - General INTERNAL MEDICINE 03/16/19 Tyler Brady MD [facility] [address] [place] [address] [place] Tractor Operator Laser Leveling CARDIOVASCULAR DISEASE 09/01/18 documented as of this encounter
--- OUTSIDE RECORDS SUMMARY | 2025-03-06 17:45 | XMS_ITS | Encounter Summary ---
Author Organization [facility] Address [address] [place] [address] Care Team Providers Care Automotive Professional Name Role Phone Aikl Chan MD Primary Care Provider [phone] Tyler Brady MD Unavailable [phone] Vinod López DO Primary Care Provider [phone] Encounter Details Date Type Department Care Team (Late st Contact Info) Description 02/24/2019 [employer] Message Enc [facility] at [facility], [facility] [address] [place] [address] Tyler Brady MD [facility]. [facility] [address] [place] [address] Other Social History Tobacco Use [...] Sex Assigned at Female 11/05/2018 3:21 PM HYDROGRAPHICAL TECHNICAL OFFICER Legal Sex Female 6:14 PM CDT Gender Identity Female 11/05/2018 3:21 PM HYDROGRAPHICAL TECHNICAL OFFICER Sexual Orientation Not on file Occupation Industry Job Start Date Job End Date Not on file Not on file Not on file Not on file documented as of this encounter Plan of Treatment Not on file documented as of this encounter Visit Diagnoses Not on filedocumented in this encounter Care Teams Automotive Professional Relationship Specialty Start Date End Date Akil Chan MD PCP - General INTERNAL MEDICINE 09/01/18 03/15/19 Vinod López DO 2090 [facility] 204 [place] [address] PCP - General INTERNAL MEDICINE 03/16/19 Tyler Brady MD [facility] [address] [place] [address] [place] Import And Export Clerk CARDIOVASCULAR DISEASE 09/01/18 documented as of this encounter
--- OUTSIDE RECORDS SUMMARY | 2025-03-06 17:45 | XMS_ITS | Encounter Summary ---
Author Organization [facility] Address [address] [place] [address] Care Team Providers Care Founder And Chief Executive Officer Name Role Phone Akil Chan MD Primary Care Provider [phone] Tyler Brady MD Unavailable [phone] Vinod López DO Primary Care Provider [phone] Encounter Details Date Type Department Care Team (Late st Contact Info) Description 02/16/2019 [employer] Message Enc [facility] at [facility], [facility] [address] [place] [address] Tyler Brady MD [facility]. [facility] [address] [place], [place] [id number] Follow Up/Update Social History Tobacco Use Types [...] Sex Assigned at Female 11/05/2018 3:21 PM YARDER PUNCHER Legal Sex Female 6:14 PM CDT Gender Identity Female 11/05/2018 3:21 PM YARDER PUNCHER Sexual Orientation Not on file Occupation Industry Job Start Date Job End Date Not on file Not on file Not on file Not on file documented as of this encounter Plan of Treatment Not on file documented as of this encounter Visit Diagnoses Not on filedocumented in this encounter Care Teams Founder And Chief Executive Officer Relationship Specialty Start Date End Date Akil Chan MD PCP - General INTERNAL MEDICINE 09/01/18 03/15/19 Vinod López DO [facility] 204 [place] [address] PCP - General INTERNAL MEDICINE 03/16/19 Tyler Brady MD [facility] [address] [place] [address] [place] Entertainer Or Variety Artist CARDIOVASCULAR DISEASE 09/01/18 documented as of this encounter
--- OUTSIDE RECORDS SUMMARY | 2025-03-06 17:45 | XMS_ITS | Referral Summary ---
Author Organization [facility] Address [address] [place] [address] Care Team Providers Care Engine Inspector Name Role Phone Maribel Vinod DOUGLASS Primary Care Provider [phone] Thanh Alexandre MD, Flash Unavailable [phone] Allergies Active Allergy Reactions Criticality Noted Date [...] by mouth daily. 0 8 Active vit C,J-Lm-aacjo-lut ein-zeaxan [id number] yz-tjjo-ho-mg capsule Take 1 capsule by mouth 2 [...] on file Legal Sex Female 3:20 AM BOXING AND PRESSING SUPERVISOR Gender Identity Female 11/18/2019 4:40 AM BOXING AND PRESSING SUPERVISOR Sexual Orientation Straight 11/18/2019 4: 40 AM BOXING AND PRESSING SUPERVISOR Last Filed Vital Signs Vital Sign Reading Time Taken Comments Blood Pressure 146/83 01/06/2020 2:08 PM BOXING AND PRESSING SUPERVISOR rn notified Pulse 61 01/06/2020 2:08 PM BOXING AND PRESSING SUPERVISOR Temperature 36.8 C (98.3 F) 01/06/2020 2:08 PM BOXING AND PRESSING SUPERVISOR Respiratory Rate 16 01/06/2020 2:08 PM BOXING AND PRESSING SUPERVISOR Oxygen Saturation 97% 01/06/2020 2:0 8 PM BOXING AND PRESSING SUPERVISOR Inhaled Oxygen Concentration - - Weight 124 kg (273 lb 6.4 oz) 0 2:08 PM BOXING AND PRESSING SUPERVISOR Height 161.3 cm (5' 3.5 ) 01/06/2020 2: 08 PM BOXING AND PRESSING SUPERVISOR Body Mass Index 47.66 01/06/2020 2:08 PM BOXING AND PRESSING SUPERVISOR Plan of Treatment Not on file Insurance MEDICARE FOR LIFE MEDICARE [facility] Address: [address] [phone] FOR LIFE MEDICARE FOR LIFE Care Teams Engine Inspector Relationship Specialty Start Date End Date Vinod López DO PCP - General Internal Medicine 11/11/19 Flash Law Jr., MD Medical Oncologist/Gasoline Service Attendant Medical Oncology 12/14/19
--- OUTSIDE RECORDS SUMMARY | 2025-03-06 17:45 | XMS_ITS | Encounter Summary ---
Author Organization [facility] Address [facility] [place] [address] Care Team Providers Care Hard Tile Setter Name Role Phone Tyler Brady MD Unavailable [phone] Vinod López DO Primary Care Provider [phone] Encounter Details Date Type Department Care Team (Late st Contact Info) Description 03/27/2019 [employer] Message [facility] at [facility], [facility] [address] [place] [address] Tyler Brady MD [facility]. [facility] [address] [place], [place] [id number] Other Social History Tobacco Use Types Packs/Day [...] Sex Assigned at Female 11/05/2018 3:21 PM LAND EXAMINER Legal Sex Female 6:14 PM CDT Gender Identity Female 11/05/2018 3:21 PM LAND EXAMINER Sexual Orientation Not on file Occupation Industry [...] on filedocumented in this encounter Care Teams Hard Tile Setter Relationship Specialty Start Date End Date Vinod López DO 2089 [facility] 204 [place] [address] PCP - General INTERNAL MEDICINE 03/16/19 Tyler Brady MD [place] [address] [place] [address] [place] Fire Extinguisher Tester CARDIOVASCULAR DISEASE 09/01/18 documented as of this encounter
--- OUTSIDE RECORDS SUMMARY | 2025-03-06 17:45 | XMS_ITS | Encounter Summary ---
Author Organization [facility] Address [address] [place] [address] Care Team Providers Care Party Plan Sales Unit Advisor Name Role Phone Akil Chan MD Primary Care Provider [phone] Tyler Brady MD Unavailable [phone] Vinod López DO Primary Care Provider [phone] Encounter Details Date Type Department Care Team (Late st Contact Info) Description 10/13/2018 [employer] Message [facility] at [facility], [place] [address] [place] [address] Tyler Brady MD [facility]. [place] [address] [place], [place] [phone] Medication Questions Social History Tobacco Use Types [...] Sex Assigned at Female 11/05/2018 3:21 PM CERTIFIED HISTOLOGIC TECHNICIAN Legal Sex Female 6:14 PM CDT Gender Identity Female 11/05/2018 3:21 PM CERTIFIED HISTOLOGIC TECHNICIAN Sexual Orientation Not on file Occupation Industry Job Start Date Job End Date Not on file Not on file Not on file Not on file documented as of this encounter Plan of Treatment Not on file documented as of this encounter Visit Diagnoses Not on filedocumented in this encounter Care Teams Party Plan Sales Unit Advisor Relationship Specialty Start Date End Date Akil Chan MD PCP - General INTERNAL MEDICINE 09/01/18 03/15/19 Vinod López DO [address] [facility] 204 [place] [address] PCP - General INTERNAL MEDICINE 03/16/19 Tyler Brady MD [facility] [address] [place] [address] [place] Refrigeration Mechanic CARDIOVASCULAR DISEASE 09/01/18 documented as of this encounter
--- OUTSIDE RECORDS SUMMARY | 2025-03-06 17:45 | XMS_ITS | Encounter Summary ---
Author Organization [facility] Address [address] [place] [address] Care Team Providers Care Recovery Room Nurse Name Role Phone Akil Chan MD Primary Care Provider [phone] Tyler Brady MD Unavailable [phone] Vinod López DO Primary Care Provider [phone] Encounter Details Date Type Department Care Team (Late st Contact Info) Description 09/05/2018 [employer] Message Enc [facility] at [facility], [facility] [address] [place] [address] Tyler Brady MD [facility]. [facility] [address] [place], [place] [id number] Medication Questions Social History Tobacco Use Types [...] Sex Assigned at Female 11/05/2018 3:21 PM PHARMACIST AIDE Legal Sex Female 6:14 PM CDT Gender Identity Female 11/05/2018 3:21 PM PHARMACIST AIDE Sexual Orientation Not on file documented as of this encounter Plan of Treatment Not on file documented as of this encounter Visit Diagnoses Not on filedocumented in this encounter Care Teams Recovery Room Nurse Relationship Specialty Start Date End Date Akil Chan MD PCP - General INTERNAL MEDICINE 09/01/18 03/15/19 Vinod López DO [address] [place] [address] 204 [place], [place] [address] PCP - General INTERNAL MEDICINE 03/16/19 Tyler Brady MD [facility] [address] [place] [address] [place] Credit Assistant CARDIOVASCULAR DISEASE 09/01/18 documented as of this encounter
--- OUTSIDE RECORDS SUMMARY | 2025-03-06 17:45 | XMS_ITS | Encounter Summary ---
Author Organization [facility] Address [address] [place] [address] Care Team Providers Care Concrete Paving Machine Operator Name Role Phone Akil Chan MD Primary Care Provider [phone] Tyler Brady MD Unavailable [phone] Vinod López DO Primary Care Provider [phone] Encounter Details Date Type Department Care Team (Late st Contact Info) Description 12/01/2018 [employer] Message Enc [facility] at [facility], [facility] [address] [place] [address] Tyler Brady MD [facility]. [facility] [address] [place], [place] [id number] Test Results Social History Tobacco Use Types [...] Sex Assigned at Female 11/05/2018 3:21 PM PROCESS ARCHITECT Legal Sex Female 6:14 PM CDT Gender Identity Female 11/05/2018 3:21 PM PROCESS ARCHITECT Sexual Orientation Not on file Occupation Industry Job Start Date Job End Date Not on file Not on file Not on file Not on file documented as of this encounter Progress Notes * Jimena Chapman RN - 12/01/2018 10:49 AM CST See patient record request - thank you. ESS ARCHITECT documented in this encounter Plan of Treatment Not on file documented as of this encounter Visit Diagnoses Not on filedocumented in this encounter Care Teams Concrete Paving Machine Operator Relationship Specialty Start Date End Date Akil Chan MD PCP - General INTERNAL MEDICINE 09/01/18 03/15/19 Vinod López DO [address] [place], [place] [address] [id number] PCP - General INTERNAL MEDICINE 03/16/19 Tyler Brady MD [facility] [address] [place] [address] [place] Professional Security Officer CARDIOVASCULAR DISEASE 09/01/18 documented as of this encounter
--- OUTSIDE RECORDS SUMMARY | 2025-03-06 17:45 | XMS_ITS | Encounter Summary ---
Author Organization [facility] Address [address] [place] [address] Care Team Providers Care Porcelain Slusher Name Role Phone Akil Chan MD Primary Care Provider [phone] Tyler Brady MD Unavailable [phone] Vinod López DO Primary Care Provider [phone] Encounter Details Date Type Department Care Team (Late st Contact Info) Description 12/18/2018 [employer] Message Enc [facility] Care - [address], [address] [place] [address] Kal Delcid MD [address] [place] [address] [address] [place] [address] Follow Up/Update Social History Tobacco [...] Sex Assigned at Female 11/05/2018 3:21 PM PROMOTION WRITER Legal Sex Female 6:14 PM CDT Gender Identity Female 11/05/2018 3:21 PM PROMOTION WRITER Sexual Orientation Not on file Occupation Industry Job Start Date Job End Date Not on file Not on file Not on file Not on file documented as of this encounter Plan of Treatment Not on file documented as of this encounter Visit Diagnoses Not on filedocumented in this encounter Care Teams Porcelain Slusher Relationship Specialty Start Date End Date Akil Chan MD PCP - General INTERNAL MEDICINE 09/01/18 03/15/19 Vinod López DO [address] [address] PCP - General INTERNAL MEDICINE 03/16/19 Tyler Brady MD [facility] [address] [place] [address] [place] Plastic Boat Patcher CARDIOVASCULAR DISEASE 09/01/18 documented as of this encounter
--- OUTSIDE RECORDS SUMMARY | 2025-03-06 17:45 | XMS_ITS | Encounter Summary ---
Author Organization [facility] Address [address] [place] [address] Care Team Providers Care Digital Sales Executive Name Role Phone Akil Chan MD Primary Care Provider [phone] Tyler Brady MD Unavailable [phone] Vinod López DO Primary Care Provider [phone] Encounter Details Date Type Department Care Team (Late st Contact Info) Description 09/10/2018 [employer] Message Enc [facility] at [facility], [facility] [address] [place] [address] Tyler Brady MD [facility]. [facility] [address] [place], [place] [phone] Medication Questions Social History Tobacco Use Types [...] Sex Assigned at Female 11/05/2018 3:21 PM MARKET DEVELOPMENT DIRECTOR Legal Sex Female 6:14 PM CDT Gender Identity Female 11/05/2018 3:21 PM MARKET DEVELOPMENT DIRECTOR Sexual Orientation Not on file documented as of this encounter Plan of Treatment Not on file documented as of this encounter Visit Diagnoses Not on filedocumented in this encounter Care Teams Digital Sales Executive Relationship Specialty Start Date End Date Akil Chan MD PCP - General INTERNAL MEDICINE 09/01/18 03/15/19 Vinod López DO [address] [place] [address] 204 [place], [place] [address] PCP - General INTERNAL MEDICINE 03/16/19 Tyler Brady MD [facility] [address] [place] [address] [place] Weld Engineer CARDIOVASCULAR DISEASE 09/01/18 documented as of this encounter
--- OUTSIDE RECORDS SUMMARY | 2025-03-06 17:45 | XMS_ITS | Encounter Summary ---
Author Organization [facility] Address [address] [facility] [address] [place] [address] Care Team Providers Care Overnight Houseperson Name Role Phone Akil Chan MD Primary Care Provider [phone] Vinod López DO Primary Care Provider [phone] Thanh Alexandre MD, Flash Unavailable [phone] Encounter Details Date Type Department Care Team (Late st Contact Info) Description 02/12/2017 Orders Only [facility] ProviderLisa MD [address] [place], [place] [address] Social History Tobacco Use Types Packs/Day Years Used Date Smoking Tobacco: Never Alcohol Use Standard Drinks/Week Comments Yes 0 (1 standard drink = 0.6 oz pur e alcohol) Comments Unknown Sex and Gender Information Value Date Recorded Sex Assigned at Not on file Legal Sex Female 3:20 AM FUNERAL HOME MANAGER Gender Identity Female 11/18/2019 4:40 AM FUNERAL HOME MANAGER Sexual Orientation Straight 11/18/2019 4: 40 AM FUNERAL HOME MANAGER documented as of this encounter Plan of [...] on filedocumented in this encounter Care Teams Overnight Houseperson Relationship Specialty Start Date End Date Akil Chan MD [address] [place] [address] PCP - General 02/05/17 11/10/19 Vinod López DO [address] [place] [address] PCP - General Internal Medicine 11/11/19 Flash Law Jr., MD [address] INTERNAL MEDICINE [place], [place] [id number] Medical Oncologist/Union Laborer Medical Oncology 12/14/19 documented as of this encounter
--- OUTSIDE RECORDS SUMMARY | 2025-03-06 17:45 | XMS_ITS | Encounter Summary ---
Author Organization [facility] Address [address] [place] [address] Care Team Providers Care Material Requirements Worker Name Role Phone Akil Chan MD Primary Care Provider Tyler Brady MD Unavailable [phone] Vinod López DO Primary Care Provider [phone] Encounter Details Date Type Department Care Team (Late st Contact Info) Description 10/13/2018 [email or web address] Message [facility] at [place], [facility] [address] [place] [address] Tyler Brady MD [facility]. [facility] [address] [place], [place] [id number] Medication Questions Social History Tobacco Use Types [...] Sex Assigned at Female 11/05/2018 3:21 PM ROLL TENDER Legal Sex Female 6:14 PM CDT Gender Identity Female 11/05/2018 3:21 PM ROLL TENDER Sexual Orientation Not on file Occupation Industry Job Start Date Job End Date Not on file Not on file Not on file Not on file documented as of this encounter Plan of Treatment Not on file documented as of this encounter Visit Diagnoses Not on filedocumented in this encounter Care Teams Material Requirements Worker Relationship Specialty Start Date End Date Akil Chan MD PCP - General INTERNAL MEDICINE 09/01/18 03/15/19 Vinod López DO 2090 [employer] [facility] [address] [place] [address] PCP - General INTERNAL MEDICINE 03/16/19 Tyler Brady MD [facility] [address] [place] [address] [place] Community Service Coordinator CARDIOVASCULAR DISEASE 09/01/18 documented as of this encounter
--- OUTSIDE RECORDS SUMMARY | 2025-03-06 17:45 | XMS_ITS | Clinical Summary ---
Author Organization [facility] Address [address] [place] [address] Care Team Providers Care Cooperative Extension Agent Name Role Phone Vinod López Primary Care Provider [phone] Source Comments [facility],non-owned Affiliates and Associated Physician Practices is amultiple site organization consisting of ambulatory clinics and hospital sitesin [place], [place], [place] and [place]. This disclosure is being madepursuant to the Care Everywhere program and may not contain all information available regarding this patient. Last updated 18.[facility] Allergies Active Allergy Reactions Criticality Noted Date [...] on file Legal Sex Female 8:43 PM SHEET METAL SHOP HELPER Gender Identity Not on file Sexual Orientation Not on file Last Filed Vital Signs Vital Sign Reading Time Taken Comments Blood Pressure 136/82 11/07/2020 10:57 AM SHEET METAL SHOP HELPER Pulse 70 11/07/2020 10:57 AM SHEET METAL SHOP HELPER Temperature - - Respiratory Rate 12 11/07/2020 10:5 7 AM SHEET METAL SHOP HELPER Oxygen Saturation - - Inhaled Oxygen Concentration - - Weight 124.4 kg (274 lb 3.2 oz) 021 10:57 AM SHEET METAL SHOP HELPER Height 160 cm (5' 3 ) 11/07/2020 10:57 AM SHEET METAL SHOP HELPER Body Mass Index 48.57 11/07/2020 10:57 AM SHEET METAL SHOP HELPER Plan of Treatment Health Maintenance Due Date [...] age to complete this topic Insurance MEDICARE [facility] MEDICARE SELF PAY NO INSURANCE Member Subscriber Plan / Payer (Ef fective for All Dates) Name:Alessandra Sam Member ID:Not on file Relation to Subscriber:Not on file Name:ALESSANDRA SAM Subscriber ID:Not on file (Home) Address: [address] [place] [id number] Payer ID:Not on file Group ID:Not on file Type:Self Pay Address: [place], [place] Care Teams Cooperative Extension Agent Relationship Specialty Start Date End Date Vinod López DO [address] [place], [place] [address] PCP - General Internal Medicine 04/03/19
--- OUTSIDE RECORDS SUMMARY | 2025-03-06 17:45 | XMS_ITS | Encounter Summary ---
Author Organization [facility] Address [address] [place] [address] Care Team Providers Care Automatic Drill Operator Name Role Phone Akil Chan MD Primary Care Provider [phone] Tyler Brady MD Unavailable [phone] Vinod López DO Primary Care Provider [phone] Encounter Details Date Type Department Care Team (Late st Contact Info) Description 09/08/2018 [employer]ala Message Enc [facility] at [facility], [facility] [address] [place] [address] Tyler Brady MD [facility]. [facility] [address] [place] [address] Follow Up/Update Social History Tobacco [...] Sex Assigned at Female 11/05/2018 3:21 PM CHANGE CONTROL COORDINATOR Legal Sex Female 6:14 PM CDT Gender Identity Female 11/05/2018 3:21 PM CHANGE CONTROL COORDINATOR Sexual Orientation Not on file documented as of this encounter Plan of Treatment Not on file documented as of this encounter Visit Diagnoses Not on filedocumented in this encounter Care Teams Automatic Drill Operator Relationship Specialty Start Date End Date Akil Chan MD PCP - General INTERNAL MEDICINE 09/01/18 03/15/19 Vinod López DO [address] [place] [address] 204 [place], [place] [id number] PCP - General INTERNAL MEDICINE 03/16/19 Tyler Brady MD [facility] [address] [place] [address] [place] Wash Barrel Leader CARDIOVASCULAR DISEASE 09/01/18 documented as of this encounter
--- OUTSIDE RECORDS SUMMARY | 2025-03-06 17:45 | XMS_ITS | Encounter Summary ---
Author Organization [facility] Address [address] [place] [address] Care Team Providers Care Agricultural Engineering Technicians Name Role Phone Akil Chan MD Primary Care Provider [phone] Tyler Brady MD Unavailable [phone] Vinod López DO Primary Care Provider [phone] Encounter Details Date Type Department Care Team (Late st Contact Info) Description 12/18/2018 Sevar Consult Message Enc [facility] at [facility], [facility] [address] [place] [address] Tyler Brady MD [facility]. [facility] [address] [place], [place] [id number] Follow Up/Update Social History Tobacco Use Types [...] Sex Assigned at Female 11/05/2018 3:21 PM SURVEY DIRECTOR Legal Sex Female 6:14 PM CDT Gender Identity Female 11/05/2018 3:21 PM SURVEY DIRECTOR Sexual Orientation Not on file Occupation Industry Job Start Date Job End Date Not on file Not on file Not on file Not on file documented as of this encounter Progress Notes * Tyler Brady MD - 12/19/2018 6:10 PM CST Hi, I think Mrs. Osorio should see whichever horticulture teacher she is most comfortable seeing and can see the soonest. Thanks EY DIRECTOR * Jimena Chapman RN - 12/19/2018 2:15 PM CST The horticulture teacher referral has been in limbo since [...] from the patient. Forwarded to Dr. Brady. EY DIRECTOR documented in this encounter Plan of Treatment Not on file documented as of this encounter Visit Diagnoses Not on filedocumented in this encounter Care Teams Agricultural Engineering Technicians Relationship Specialty Start Date End Date Akil Chan MD PCP - General INTERNAL MEDICINE 09/01/18 03/15/19 Vinod López DO [address] [place] [address] PCP - General INTERNAL MEDICINE 03/16/19 Tyler Brady MD [facility] [address] [place] [address] Eddie Exhibits Manager CARDIOVASCULAR DISEASE 09/01/18 documented as of this encounter
--- OUTSIDE RECORDS SUMMARY | 2025-03-06 17:46 | XMS_ITS | Encounter Summary ---
Author Organization [facility] Address [address] [place] [address] Care Team Providers Care Purification Operator Name Role Phone Tyler Brady MD Unavailable [phone] Vinod López DO Primary Care Provider [phone] Encounter Details Date Type Department Care Team (Late st Contact Info) Description 03/19/2019 [employer] Message [facility] at [facility], [facility] [address] [place] [address] Tyler Brady MD [facility]. [facility] [address] [place], [place] [id number] Follow Up/Update Social History Tobacco Use Types [...] Sex Assigned at Female 11/05/2018 3:21 PM AUTOMATIC SPLICING MACHINE OPERATOR Legal Sex Female 6:14 PM CDT Gender Identity Female 11/05/2018 3:21 PM AUTOMATIC SPLICING MACHINE OPERATOR Sexual Orientation Not on file [...] on filedocumented in this encounter Care Teams Purification Operator Relationship Specialty Start Date End Date Vinod López DO [address] [facility] [address] [place] [address] PCP - General INTERNAL MEDICINE 03/16/19 Tyler Brady MD [facility] [address] [place] [address] [place] History Tutor CARDIOVASCULAR DISEASE 09/01/18 documented as of this encounter
--- OUTSIDE RECORDS SUMMARY | 2025-03-06 17:46 | XMS_ITS | Encounter Summary ---
Author Organization [facility] Address [address] [place] [address] Care Team Providers Care Legal Instructor Name Role Phone Tyler Brady MD Unavailable [phone] Vinod López DO Primary Care Provider [phone] Encounter Details Date Type Department Care Team (Late st Contact Info) Description 03/16/2019 [employer] Message [facility] at [facility], [facility] [address] [place] [address] Tyler Brady MD [facility]. [facility] [address] [place], [place] [id number] Follow Up/Update Social History Tobacco Use Types [...] Sex Assigned at Female 11/05/2018 3:21 PM MARKETING AND COMMUNICATIONS OFFICER Legal Sex Female 6:14 PM CDT Gender Identity Female 11/05/2018 3:21 PM MARKETING AND COMMUNICATIONS OFFICER Sexual Orientation Not on file Occupation [...] on filedocumented in this encounter Care Teams Legal Instructor Relationship Specialty Start Date End Date Vinod López DO [facility] [address] [place] [address] PCP - General INTERNAL MEDICINE 03/16/19 Tyler Brady MD [facility] [address] [place] [address] [place] Cash Grain Grower CARDIOVASCULAR DISEASE 09/01/18 documented as of this encounter
--- OUTSIDE RECORDS SUMMARY | 2025-03-06 17:46 | XMS_ITS | Encounter Summary ---
Author Organization [facility] Address [address] [place] [address] Care Team Providers Care Marketing Support Assistant Name Role Phone Akil Chan MD Primary Care Provider [phone] Tyler Brady MD Unavailable [phone] Vinod López DO Primary Care Provider [phone] Encounter Details Date Type Department Care Team (Late st Contact Info) Description 09/03/2018 [employer] Message Enc [facility] at [facility], [facility] [address] [place] [address] Tyler Brady MD [facility]. [facility] [address] [place] [address] Follow Up/Update Social History Tobacco [...] Sex Assigned at Female 11/05/2018 3:21 PM EMBEDDED SOFTWARE TEST ENGINEER Legal Sex Female 6:14 PM CDT Gender Identity Female 11/05/2018 3:21 PM EMBEDDED SOFTWARE TEST ENGINEER Sexual Orientation Not on file documented as of this encounter Plan of Treatment Not on file documented as of this encounter Visit Diagnoses Not on filedocumented in this encounter Care Teams Marketing Support Assistant Relationship Specialty Start Date End Date Akil Chan MD PCP - General INTERNAL MEDICINE 09/01/18 03/15/19 Vinod López DO [address] [place] [address] [address] [place], [place] [id number] PCP - General INTERNAL MEDICINE 03/16/19 Tyler Brady MD [facility] [address] [place] [address] [place] Bevel Face Stoner And Polisher CARDIOVASCULAR DISEASE 09/01/18 documented as of this encounter
--- NOTE | 2025-03-06 18:07 | ED.GENADULT ---
HPI - General Adult General Chief complaint: Extremity Injury, Lower Stated complaint: right foot pain Time Seen by Provider: 03/06/25 17:34 History of Present Illness HPI narrative: 79-year-old female presenting to the emergency department for evaluation for a right foot injury. Patient states she was walking and injured her right foot and she stepped off a curb. Patient states he did not injure her ankle. Patient states she did not actually fall to the ground denies striking head denies loss of consciousness. Patient does report increased pain with weight-bearing. Related Data Home Medications ?Medication ?Instructions ?Recorded ?Confirmed ?Last Taken ?Type metoprolol tartrate 50 mg tablet 50 mg PO Q12H 10/14/19 11/17/24 07/20/24 History rivaroxaban 20 mg tablet (Xarelto) 20 mg PO DAILY 10/14/19 11/17/24 07/18/24 History vitamins A,C,L-ueep-uyfgdx 4,296 1 cap PO BID 11/08/20 11/17/24 07/20/24 History mcg-226 mg-90 mg capsule (PreserVision AREDS) alprazolam 0.25 mg tablet (Xanax) 0.25 mg PO DAILY PRN Anxiety 02/27/22 11/17/24 07/20/24 History acetaminophen 650 mg 1,300 mg PO Q12H pain 05/05/22 11/17/24 07/20/24 History tablet,extended release empagliflozin 10 mg tablet 10 mg PO DAILY 05/29/24 11/17/24 07/20/24 History (Jardiance) loratadine 10 mg tablet (Allergy 10 mg PO DAILY PRN Allergy Symptoms 06/29/24 11/17/24 07/20/24 History Relief (loratadine)) bumetanide 2 mg tablet 2 mg PO BID 11/17/24 11/17/24 Unknown History potassium chloride 20 mEq 20 meq PO DAILY 11/17/24 11/17/24 Unknown History tablet,extended release Allergies Allergy/AdvReac Type Severity Reaction Status Date / Time Sulfa (Sulfonamide Allergy Intermediate Rash Verified 11/17/24 14:09 Antibiotics) Review of Systems Review of Systems: All systems reviewed & are unremarkable except as noted in HPI and below PMFSH Past Medical History Medical History (Updated 03/06/25 @ 18:55 by Carlos Dowd MD) Other hyperlipidemia Restless leg syndrome History of sarcoidosis Congestive heart failure of unknown etiology Hx of arteriovenous malformation (AVM) Iron deficiency anemia CARLOS (obstructive sleep apnea) Post-menopausal Paroxysmal atrial fibrillation Depression Colonoscopy planned Gastro-esophageal reflux Type 2 diabetes mellitus Hypothyroidism Unspecified atrial fibrillation Essential hypertension Surgical History Surgical History Hx of shoulder surgery History of toe surgery History of arthroscopy of knee Family History Family History (Updated 11/17/24 @ 14:14 by OSMANY Aviles) Mother Family history of lung cancer Family history of lung disease Father Family history of arthritis Family history of heart disease in male family member before age 55 Family history of cardiovascular disease Sibling Family history of malignant neoplasm of breast in first degree relative Carcinoma of colon Breast cancer Daughter Breast cancer Social History Social History (Updated 11/17/24 @ 14:15 by OSMANY Aviles) Smoking status: Never smoker Second hand tobacco smoke exposure: Yes Alcohol intake: never Substance use: never Substance use type: does not use Do You Feel Safe in your Home?: Yes Lack of Transportation: No Lack of Food: Never True Current Housing: I Have Housing Concerned About Future Housing: No Difficulty Paying Gas/Electric Bills: No Difficulty Paying for Meds: No Currently Unemployed: No Education: Bachelor's Degree Difficulty w/ Childcare or Family Care: YES Living arrangements: with family Occupation/Education: retired 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 HEAD: normocephalic, atraumatic. EYES: PERRLA/EOMI, conjunctivae clear. NOSE: Normal no drainage EARS:TMS clear with good light reflex. THROAT: Pharynx clear, no exudate. NECK: Supple. No adenopathy, no masses. RESPIRATORY: Airway patent, respirations nonlabored. Clear to auscultation bilaterally, no rales, rhonchi, wheezing. CARDIOVASCULAR: Regular rate and rhythm without murmurs rubs or gallops. ABDOMINAL: Soft, nontender, nondistended, normal bowel sounds MUSCULOSKELETAL: Right foot tenderness to palpation with no ecchymosis no edema and no deformity, neurovascularly intact NEURO: Alert. Cranial nerves II through XII intact. Grossly intact SKIN: Warm, dry. Normal Color Course Vital Signs Vital signs: Vital Signs Temperature 97.6 F 03/06/25 16:33 Pulse Rate 66 03/06/25 16:33 Respiratory Rate 16 03/06/25 16:33 Blood Pressure 131/88 03/06/25 16:33 Pulse Oximetry 96 03/06/25 16:33 Temperature 97.6 F 03/06/25 16:33 Pulse Rate 74 03/06/25 18:44 Respiratory Rate 18 03/06/25 18:44 Blood Pressure 131/88 03/06/25 16:33 Pulse Oximetry 96 03/06/25 18:44 Medical Decision Making MDM Narrative Medical decision making narrative: 79-year-old female presented to the emergency department for evaluation for right foot pain after injuring it after stepping off a curb. X-ray was negative for acute fracture dislocation. Patient has no pain or tenderness of ankle or proximal tib-fib. Patient was placed and an Piotr wrap and did have some difficulty with walking with a walker but patient prefers to be discharged home. Patient states he does have access to a wheelchair. Patient will also be provided follow-up with Orthopedics. Differential Diagnosis Differential Diagnosis: Ankle sprain, ankle fracture, foot sprain, foot fracture Vital Signs Vital Signs: Vital Signs Temperature 97.6 F 03/06/25 16:33 Pulse Rate 66 03/06/25 16:33 Respiratory Rate 16 03/06/25 16:33 Blood Pressure 131/88 03/06/25 16:33 Pulse Oximetry 96 03/06/25 16:33 Temperature 97.6 F 03/06/25 16:33 Pulse Rate 74 03/06/25 18:44 Respiratory Rate 18 03/06/25 18:44 Blood Pressure 131/88 03/06/25 16:33 Pulse Oximetry 96 03/06/25 18:44 Imaging Data Radiologist's impression: Impressions Foot X-Ray 03/06/25 18:10 IMPRESSION: No acute osseous finding in the right foot. Discharge Plan Discharge Clinical Impression: Strain of foot Patient Disposition: Home Condition: Stable Instructions: Antibiotic Form, Foot Sprain (ED) Additional Instructions: Piotr wrap for comfort. Limited weight-bearing on affected foot. Utilize a walker or wheelchair to prevent further injury to the foot. Have close follow-up with Orthopedics. Patient Language: Greenlandic Prescriptions: No Action PreserVision AREDS 14,135-226-200 fazc-om-wbdp capsule 1 cap PO BID Jardiance 10 mg tablet 10 mg PO DAILY Patient Comments: makes mouth dry bumetanide 2 mg tablet 2 mg PO BID potassium chloride 20 mEq tablet extended release 20 meq PO DAILY Xarelto 20 mg tablet 20 mg PO DAILY Rx Instructions: take each evening metoprolol tartrate 50 mg tablet 50 mg PO Q12H alprazolam [Xanax] 0.25 mg tablet 0.25 mg PO DAILY PRN (Reason: Anxiety) loratadine [Allergy Relief (loratadine)] 10 mg tablet 10 mg PO DAILY PRN (Reason: Allergy Symptoms) acetaminophen 650 mg tablet extended release 1,300 mg PO Q12H tramadol 50 mg tablet 50 mg PO QHS PRN (Reason: pain) Qty: 30 1RF gabapentin 600 mg tablet 600 mg PO TID Qty: 270 1RF metformin 500 mg tablet 500 mg PO BID Qty: 180 3RF rosuvastatin [Crestor] 10 mg tablet 10 mg PO DAILY Qty: 90 1RF levothyroxine 125 mcg tablet See Rx Instructions .ROUTE .COMPLEX Qty: 90 1RF Dose Instruction: TAKE 1 TABLET BY MOUTH DAILY Rx Instructions: TAKE 1 TABLET BY MOUTH DAILY fluoxetine [Prozac] 20 mg capsule 40 mg PO DAILY Qty: 180 1RF pramipexole 1 mg tablet 1 mg PO TID Qty: 270 1RF omeprazole 20 mg capsule,delayed release(DR/EC) 20 mg PO BID Qty: 180 3RF Follow-up/Referrals: Filiberto Manuel APRN [Primary Care Provider] - Delbert Lopez MD [Physician] -
[2025-03-06 18:44] VITALS: PULSE 74; RESP 18; O2SAT 96
[2025-03-06 19:40] VITALS: BP 114/75; PULSE 68; RESP 20; TEMP 36.8; O2SAT 99
[2025-03-06 20:02] VITALS: PULSE 76; RESP 19; O2SAT 99
== END 2025-03-06 20:04 | disposition home or self-care (01) ==
PROVIDERS: Emergency Provider Emergency Medicine; PCP Nurse Practitioner
DX: S96.911A Strain of unspecified muscle and tendon at ankle and foot level, right foot, initial encounter (principal); W17.89XA Other fall from one level to another, initial encounter; Z79.01 Long term (current) use of anticoagulants; E78.49 Other hyperlipidemia; G47.33 Obstructive sleep apnea (adult) (pediatric); I48.0 Paroxysmal atrial fibrillation; K21.9 Gastro-esophageal reflux disease without esophagitis; E03.9 Hypothyroidism, unspecified; I10 Essential (primary) hypertension; E11.9 Type 2 diabetes mellitus without complications
CPT/HCPCS: 73630; 99283

== ENCOUNTER 2025-04-05 09:10 | Inpatient (IN) | payer MEDICARE, OTHER, SELFPAY ==
[2025-04-05] VITALS (10 sets, daily range): BP systolic 103–117; BP diastolic 54–84; PULSE 62–67; RESP 16–21; TEMP 36.4–36.8; O2SAT 88–100; BMI 43.9
--- NOTE | 2025-04-05 | ECHO_ITS ---
Patient Info Name: Nikole Osorio Age: 79 years : 1945 Gender: Female Ht: 63 in Wt: 245 lbs BSA: 2.29 m2 HR: 63 bpm BP: 115 / 70 mmHg Technical Quality: Fair Exam Date: 04/05/2025 3:26 PM Patient Status: I Admit Date: 04/06/2025 Exam Type: CA echo dop color flow w con Complete two-dimensional, color flow and Doppler transthoracic echocardiogram is performed with contrast to opacify the left ventricle and to improve the deliniation of the left ventricle endocardial borders. Staff Referring Physician: Alverto Mcdonald MD Oil Fire Specialist: Lila Winkler Attending Provider: Norberto Lindo Contrast/Agitated Saline Contrast/Ag. Saline: Definity Amount: 3.00 ml Existing IV Access: Yes IV Access Condition: patent with no signs of infiltration Summary 1. Left ventricular chamber dimension is normal. 2. Left ventricular systolic function is normal, estimated at 60-65. 3. There is mildly increased left ventricular wall thickness. 4. The left ventricular diastolic function is grade I diastolic dysfunction. 5. Right ventricular chamber dimension is severely enlarged. 6. Right ventricular systolic function is normal. 7. Flattening of the septum in diastole and systole consistent with right ventricular volume and pressure overload. 8. Left atrial chamber dimension is severely enlarged. 9. Right atrial chamber dimension is severely enlarged. 10. There is mild aortic valve regurgitation. 11. There is mild mitral valve regurgitation. 12. There is severe tricuspid valve regurgitation. 13. Severe pulmonary hypertension, estimated pulmonary arterial systolic pressure is 99 mmHg. Left Ventricle Left ventricular chamber dimension is normal. Left ventricular systolic function is normal, estimated at 60-65. There is mildly increased left ventricular wall thickness. The left ventricular diastolic function is grade I diastolic dysfunction. Right Ventricle Flattening of the septum in diastole and systole consistent with right ventricular volume and pressure overload. Right ventricular chamber dimension is severely enlarged. Right ventricular systolic function is normal. Linear artifact in right ventricle suggestive of catheter(s), pacemaker lead(s), or ICD lead(s). Left Atria Left atrial chamber dimension is severely enlarged. Right Atria Linear artifact in the right atrium suggestive of catheter(s), pacemaker lead(s), or ICD lead(s). Right atrial chamber dimension is severely enlarged. Atrial Septum Intact interatrial septum visualized by color flow imaging. Aortic Valve The aortic valve is probable trileaflet. There is mild aortic valve sclerosis. There is mild aortic valve regurgitation. Pulmonic Valve The pulmonic valve is not well visualized. There is trace pulmonic regurgitation. Mitral Valve The mitral valve has thickened leaflets. There is mild mitral valve regurgitation. Tricuspid Valve There is severe tricuspid valve regurgitation. Severe pulmonary hypertension, estimated pulmonary arterial systolic pressure is 99 mmHg. Pericardium/Pleural There is no pericardial effusion. Inferior Vena Cava Dilated inferior vena cava with <50% collapse upon inspiration consistent with elevated right atrial pressure, 15 mmHg. Aorta The aortic root size at the sinus of Valsalva is normal. Left Ventricular Outflow Tract Name Value Normal LVOT 2D LVOT Diameter 2.0 cm LVOT Doppler LVOT Peak Velocity 113 cm/s LVOT Peak Gradient 5 mmHg LVOT Mean Gradient 3 mmHg LVOT VTI 27 cm LVOT VTI/AV VTI Ratio 0.7 LVOT Stroke Volume 83 ml LVOT CO 16.4 l/min LVOT CI 7.2 l/min/m2 Pulmonic Valve Name Value Normal PV Doppler PV Peak Velocity 77 cm/s PV Peak Gradient 2 mmHg Mitral Valve Name Value Normal MV Diastolic Function MV E Peak Velocity 69 cm/s MV A Peak Velocity 89 cm/s MV E/A 0.8 MV Decel Time (PW) 249 ms MV Annular TDI MV E/e' (Septal) 11.0 MV E/e' (Lateral) 8.1 MV E/e' (Average) 9.6 Tricuspid Valve Name Value Normal TV Regurgitation Doppler TR Peak Velocity 457 cm/s TR Peak Gradient 72 mmHg Estimated PAP/RSVP RA Pressure 15 mmHg <=5 PA Systolic Pressure 99 mmHg <36 RV Systolic Pressure 99 mmHg <36 TV Annular TDI TV Lateral Maile s' Velocity 14.7 cm/s >=9.5 Aorta Name Value Normal Ascending Aorta Ao Root Diameter (MM) 3.5 cm Ao Root Diam Index (MM) 1.5 cm/m2 Aortic Valve Name Value Normal AV Doppler AV Peak Velocity 169 cm/s AV Peak Gradient 11 mmHg AV Mean Gradient 6 mmHg AV VTI 36 cm AV Area (Cont Eq VTI) 2.3 cm2 >=3.0 AV Area (Cont Eq Anderson) 2.1 cm2 AV DI (Anderson) 0.67 AV Regurgitation 2D LVOT Area 3.1 cm2 Ventricles Name Value Normal LV Dimensions 2D/MM IVS Diastolic Thickness (2D) 1.1 cm 0.6-1.0 LVID Diastole (2D) 4.4 cm 3.8-5.2 LVIW Diastolic Thickness (2D) 1.1 cm 0.6-0.9 LVID Systole (2D) 3.1 cm 2.2-3.5 LVOT Diameter 2.0 cm LV Mass (2D Cubed) 169.17 g 67.00-162.00 LV Mass Index (2D Cubed) 74 g/m2 43-95 Relative Wall Thickness (2D) 0.48 <=0.42 LV Fractional Shortening/Ejection Fraction 2D/MM LV Fractional Shortening (2D) 30 % 27-45 LV EF (2D Teichholz) 58 % LV Diastolic Volume (4C MOD) 85 ml LV EF (4C MOD) 67 % LV Diastolic Volume (2C MOD) 57 ml LV EF (2C MOD) 81 % LV Diastolic Volume (BP MOD) 72 ml 46-106 LV Diastolic Volume Index (BP MOD) 31 ml/m2 29-61 LV Systolic Volume (BP MOD) 18 ml 14-42 LV Systolic Volume Index (BP MOD) 8 ml/m2 8-24 LV EF (BP MOD) 75 % 54-74 LV Diastolic Length (4C) 6.3 cm LV Systolic Length (4C) 4.9 cm LV Stroke Volume (4C MOD) 57 ml RV Dimensions 2D/MM RVID Diastole (2D) 7.0 cm 2.1-3.5 Atria Name Value Normal LA Dimensions LA Dimension (MM) 4.4 cm 2.7-3.8 LA Volume (4C A-L) 78 ml LA Volume (BP A-L) 87 ml RA Dimensions RA Systolic Major [place] Length (4C) 7.1 cm 2.2-2.8 RA Area (4C) 46.1 cm2 <=18.0 Report Signatures
--- NOTE | ~2025-04-05 | XR_ITS ---
Clinical Indication: Chest pain PA and lateral views of the chest: Comparison: 06/23/2024 Findings: Minimal right pleural effusion present. Left lung clear. Cardiomediastinal silhouette is s table, with pacemaker device. Bones and soft tissues are unremarkable, aside from right shoulder arth roplasty. Impression: Minimal right pleural effusion. Stable cardiomegaly, with pacemaker device. Reviewed, dictated and finalized at location . Impression: Minimal right pleural effusion. Stable cardiomegaly, with pacemaker device.
--- NOTE | 2025-04-05 09:11 | ECG_ITS ---
Test Date: 2025-04-05 09:16:39 Measurements Intervals Bradshaw Rate: 63 P: 47 CA: 156 QRS: 0 QRSD: 103 T: -22 QT: 467 QTc: 481 Interpretive Statements SINUS RHYTHM INCOMPLETE RIGHT BUNDLE BRANCH BLOCK VOLTAGE CRITERIA FOR LVH ST DEVIATION AND MODERATE T-WAVE ABNORMALITY IN ANT/INF LEADS, CONSIDER ISCHEMIA BASELINE ARTIFACT- I, II, AVR, AVL ABNORMAL ECG Compared to ECG 07/01/2024 09:00:31 ATRIAL FIBRILLATION NO LONGER PRESENT Electronically Signed On 04-05-2025 09:45:23 CDT by Ilir Jimenez D.O.
--- OUTSIDE RECORDS SUMMARY | 2025-04-05 09:25 | XMS_ITS | Referral Summary ---
Author Organization [facility] Address [address] [place] [address] Care Team Providers Care Edging Supervisor Name Role Phone Vinod López DO Primary Care Provider [phone] Thanh Alexandre MD, Flash Unavailable [phone] Allergies Active Allergy Reactions Criticality Noted Date [...] by mouth daily. 0 8 Active vit C,V-Ra-mypwe-lut ein-zeaxan 807-907-89-1 tx-jshk-gr-mg capsule Take 1 capsule by mouth 2 [...] on file Legal Sex Female 3:20 AM LABORATORY ADMINISTRATIVE DIRECTOR Gender Identity Female 11/18/2019 4:40 AM LABORATORY ADMINISTRATIVE DIRECTOR Sexual Orientation Straight 11/18/2019 4: 40 AM LABORATORY ADMINISTRATIVE DIRECTOR Last Filed Vital Signs Vital Sign Reading Time Taken Comments Blood Pressure 146/83 01/06/2020 2:08 PM LABORATORY ADMINISTRATIVE DIRECTOR rn notified Pulse 61 01/06/2020 2:08 PM LABORATORY ADMINISTRATIVE DIRECTOR Temperature 36.8 C (98.3 F) 01/06/2020 2:08 PM LABORATORY ADMINISTRATIVE DIRECTOR Respiratory Rate 16 01/06/2020 2:08 PM LABORATORY ADMINISTRATIVE DIRECTOR Oxygen Saturation 97% 01/06/2020 2:0 8 PM LABORATORY ADMINISTRATIVE DIRECTOR Inhaled Oxygen Concentration - - Weight 124 kg (273 lb 6.4 oz) 0 2:08 PM LABORATORY ADMINISTRATIVE DIRECTOR Height 161.3 cm (5' 3.5) 01/06/2020 2: 08 PM LABORATORY ADMINISTRATIVE DIRECTOR Body Mass Index 47.66 01/06/2020 2:08 PM LABORATORY ADMINISTRATIVE DIRECTOR Plan of Treatment Not on file Insurance MEDICARE FOR LIFE MEDICARE FOR LIFE MEDICARE [facility] FOR LIFE Care Teams Edging Supervisor Relationship Specialty Start Date End Date Vinod López DO PCP - General Internal Medicine 11/11/19 Flash Law Jr., MD Medical Oncologist/Set Making Machine Operator Medical Oncology 12/14/19
--- OUTSIDE RECORDS SUMMARY | 2025-04-05 09:25 | XMS_ITS | Clinical Summary ---
Author Organization [email or web address] Address [address] [place] [address] Care Team Providers Care Supervisor Net Making Name Role Phone Vinod López Primary Care Provider [phone] Source Comments [email or web address],non-owned Affiliates and Associated Physician Practices is amultiple site organization consisting of ambulatory clinics and hospital sitesin [place], [place], [place] and [place]. This disclosure is being madepursuant to the Care Everywhere program and may not contain all information available regarding this patient. Last updated 18.[email or web address] Allergies Active Allergy Reactions Criticality Noted Date [...] on file Legal Sex Female 8:43 PM MANAGER SMALL BUSINESS Gender Identity Not on file Sexual Orientation Not on file Last Filed Vital Signs Vital Sign Reading Time Taken Comments Blood Pressure 136/82 11/07/2020 10:57 AM MANAGER SMALL BUSINESS Pulse 70 11/07/2020 10:57 AM MANAGER SMALL BUSINESS Temperature - - Respiratory Rate 12 11/07/2020 10:5 7 AM MANAGER SMALL BUSINESS Oxygen Saturation - - Inhaled Oxygen Concentration - - Weight 124.4 kg (274 lb 3.2 oz) 021 10:57 AM MANAGER SMALL BUSINESS Height 160 cm (5' 3) 11/07/2020 10:57 AM MANAGER SMALL BUSINESS Body Mass Index 48.57 11/07/2020 10:57 AM MANAGER SMALL BUSINESS Plan of Treatment Health Maintenance Due Date [...] to complete this topic Insurance MEDICARE [facility] MEDICARE SELF PAY NO INSURANCE Member Subscriber Plan / Payer (Ef fective for All Dates) Name:Alessandra Sam Member ID:Not on file Relation to Subscriber:Not on file Name:ALESSANDRA SAM Subscriber ID:Not on file (Home) Address: [address] [place] [id number] Payer ID:Not on file Group ID:Not on file Type:Self Pay Address: [place], [place] Care Teams Supervisor Net Making Relationship Specialty Start Date End Date Vinod López DO [address] [place], [place] [id number] PCP - General Internal Medicine 04/03/19
--- OUTSIDE RECORDS SUMMARY | 2025-04-05 09:25 | XMS_ITS | Continuity of Care Document ---
Author Name [facility] Organization [facility] Care Team Providers Care Cook Ice Cream Name Role Phone [facility] Unavailable Unavailable Medications Combined list of outpatient medications from Department of Defense and Veterans Affairs facilities.Medications provided include 1) outpatient medications from the last 15 months, and 2) patient-reported medications. Medication Details Route Status Patient Instructions Prescription Expires Prescription Number Last Dispense Date Ordering Provider Order Date Order Qty Source JARDIANCE (EMPAGLIFLO ZIN), 10 MG, TABLET, ORAL, BOEHRINGER ING., 30 ea. BOTTLE Cancele d [id number] : 2023 0 Pharmac y Data Transac tion Service Facilit y JARDIANCE (EMPAGLIFLO ZIN), 10 MG, TABLET, ORAL, BOEHRINGER ING., 90 ea. BOTTLE Active [id number] 4 2023 90 Pharmac y Data Transac tion Service Facilit y METOPROLOL TARTRATE (metoprolol tartrate), 50 MG, TABLET, ORAL, [employer] 1000 ea. BOTTLE Active [id number] 4 2023 180 Pharmac y Data Transac tion Service Facilit y OMEPRAZOLE (omeprazole ), 20 MG, CAPSULE DR ORAL, [employer], 1000 ea. BOTTLE Active [id number] 4 2023 180 Pharmac y Data Transac tion Service Facilit y OMEPRAZOLE (omeprazole ), 20 MG, CAPSULE DR ORAL, [employer], 1000 ea. BOTTLE Active [id number] 4 2023 180 Pharmac y Data Transac tion Service Facilit y Allergies, Adverse Reactions, Alerts Combined list of allergies from Department of Defense and Veterans Affairs facilities. It does not include entries that were removed or entered in error. Substance Category Reaction Severity Reaction type Status Date Reported Comments Source SULFA-DRUGS Drug allergy (disorder) Unknown active 10/01/2006 [facility] Jayesh RIZ[place] [place] Immunizations Combined list of available immunizations from the Department of Defense and Veterans Affairs facilities. Immunization Series Date Given Administered By Site Reaction Lot Number CVX Code Drug Swing Frame Grinder Operator Status Comments Source Influenza vaccine, quadrivalent, adjuvanted 2020 YVAN, () Not Given Influenza vaccine, quadrival ent, adjuvante d [facility] COVID-19, mRNA, LNP-S, PF, 30 mcg/0.3 mL dose 2020 TONY, [employer] (PFR) Not Given COVID-19, mRNA, LNP-S, PF, 30 mcg/0.3 mL dose DoD COVID-19, mRNA, LNP-S, PF, 30 mcg/0.3 mL dose 2020 YAVN, [employer] (PFR) Not Given COVID-19, mRNA, LNP-S, PF, 30 mcg/0.3 mL dose DoD COVID-19, mRNA, LNP-S, PF, 30 mcg/0.3 mL dose 2020 CORINNE, [employer] (PFR) Not Given COVID-19, mRNA, LNP-S, PF, 30 mcg/0.3 mL dose DoD zoster live 2013 SHEILA URENA DO () Not Given zoster live DoD Social History Combined list of available smoking, tobacco, and other social history from Department of Defense and Veterans Affairs facilities. Social History Type Response Date Comment Sour e This section is an empty social history section. DoD
--- OUTSIDE RECORDS SUMMARY | 2025-04-05 09:25 | XMS_ITS | Clinical Summary ---
Author Organization [facility] Address [address] [place] [address] Care Team Providers Care Software Development Advisor Name Role Phone Vinod López DO Primary Care Provider [phone] Thanh Alexandre MD, Flash Unavailable [phone] Allergies Active Allergy Reactions Criticality Noted Date [...] by mouth daily. 0 8 Active vit C,F-Wq-onkgi-lut ein-zeaxan 052-348-48-1 xw-npyt-ja-mg capsule Take 1 capsule by mouth 2 [...] 1 Mariangel Jo Anemia Daughter 2 Jimena Osorio Arthritis Father Wilbert Lopez Heart attack Father Wilbert Lopez Myocardia l infarction; Cause of : Myocardial infarction Heart disease Father Wilbert Hernandezarry Cancer Mother Katharina Hernandezarry Lung cancer Mother Katharina Lopez Cancer, lung; [...] Keshia Murray Voci Arthritis Sister 2 Bell Starkley Cancer Sister 3 Corinne John Anemia Son Bill Osorio Relation Name Status Comments Brother Robin Daughter 1 Mariangel Osorio Daughter 2 Jimena Osorio Father Wilbert Lopez (Age 71) Mother Katharina Lopez (Age 63) Mother's Sister Niokle Rodriguez Other 1 Other 2 Other 3 Other 4 Other 5 Sister 1 Keshia Murray Voci Sister 2 Bell Kam Sister 3 Corinne Toledo Son Bill Osorio Social History Tobacco Use Types Packs/Day Years Used Date Smoking Tobacco: Never Smokeless Tobacco: Never Alcohol Use Standard Drinks/Week Comments Yes 0 (1 standard drink = 0.6 oz pure alcohol) Very rarely - wine holiday meal Comments Unknown Sex and Gender Information Value Date Recorded Sex Assigned at Not on file Legal Sex Female 3:20 AM COLLECTION SYSTEMS CONSULTANT Gender Identity Female 11/18/2019 4:40 AM COLLECTION SYSTEMS CONSULTANT Sexual Orientation Straight 11/18/2019 4: 40 AM COLLECTION SYSTEMS CONSULTANT Obstetrics History Last Filed Vital Signs Vital Sign Reading Time Taken Comments Blood Pressure 146/83 01/06/2020 2:08 PM COLLECTION SYSTEMS CONSULTANT rn notified Pulse 61 01/06/2020 2:08 PM COLLECTION SYSTEMS CONSULTANT Temperature 36.8 C (98.3 F) 01/06/2020 2:08 PM COLLECTION SYSTEMS CONSULTANT Respiratory Rate 16 01/06/2020 2:08 PM COLLECTION SYSTEMS CONSULTANT Oxygen Saturation 97% 01/06/2020 2:0 8 PM COLLECTION SYSTEMS CONSULTANT Inhaled Oxygen Concentration - - Weight 124 kg (273 lb 6.4 oz) 0 2:08 PM COLLECTION SYSTEMS CONSULTANT Height 161.3 cm (5' 3.5) 01/06/2020 2: 08 PM COLLECTION SYSTEMS CONSULTANT Body Mass Index 47.66 01/06/2020 2:08 PM COLLECTION SYSTEMS CONSULTANT Plan of Treatment Not on file Insurance MEDICARE FOR LIFE MEDICARE FOR LIFE MEDICARE FOR LIFE Care Teams Software Development Advisor Relationship Specialty Start Date End Date Vinod López DO PCP - General Internal Medicine 11/11/19 Flash Law Jr., MD Medical Oncologist/Payroll And Benefits Assistant Medical Oncology 12/14/19
--- OUTSIDE RECORDS SUMMARY | 2025-04-05 09:25 | XMS_ITS | Encounter Summary ---
Author Organization [facility] Address [address] [address] Care Team Providers Care Ben Day Artist Name Role Phone Akil Chan MD Primary Care Provider [phone] Vinod López DO Primary Care Provider [phone] Thanh Alexandre MD, Flash Unavailable [phone] Encounter Details Date Type Department Care Team (Late st Contact Info) Description 02/12/2017 Orders Only [facility] ProviderLisa MD [address] [place], [place] [id number] Social History Tobacco Use Types Packs/Day Years Used Date Smoking Tobacco: Never Alcohol Use Standard Drinks/Week Comments Yes 0 (1 standard drink = 0.6 oz pur e alcohol) Comments Unknown Sex and Gender Information Value Date Recorded Sex Assigned at Not on file Legal Sex Female 3:20 AM INDUSTRIAL MAINTENANCE TECHNICIAN Gender Identity Female 11/18/2019 4:40 AM INDUSTRIAL MAINTENANCE TECHNICIAN Sexual Orientation Straight 11/18/2019 4: 40 AM INDUSTRIAL MAINTENANCE TECHNICIAN documented as of this encounter Plan of [...] on filedocumented in this encounter Care Teams Ben Day Artist Relationship Specialty Start Date End Date Akil Chan MD [address] [place] [address] PCP - General 02/05/17 11/10/19 Vinod López DO [address] [place] [address] PCP - General Internal Medicine 11/11/19 Flash Law Jr., MD [address] [place] [address] Medical Oncologist/Scientist Electronics Medical Oncology 12/14/19 documented as of this encounter
[2025-04-05 09:43] LABS: Basophils Absolute Auto 0.1 K/mm3 (0.0-0.1); Basophils Percent Auto 0.5 % (0.2-1.2); Eosinophils Absolute Auto 0.2 K/mm3 (0-0.3); Eosinophils Percent Auto 1.7 % (0-4.4); Hematocrit 30.3 % (37.0-47.0); Hemoglobin 8.7 g/dL (12.0-15.0); Immature Granulocyte Absolute 0.03 K/mm3 (0.00-0.031); Immature Granulocyte Percent A 0.3 % (0-0.5); Lymphocytes Absolute Auto 0.84 K/mm3 (0.9-3.2); Lymphocytes Percent Auto 8.8 % (18.3-44.2); Mean Corpuscular HGB Conc 28.7 g/dl (32-36); Mean Corpuscular Hemoglobin 23.6 pg (26-34); Mean Corpuscular Volume 82.3 fl (80-100); Monocytes Absolute Auto 0.7 K/mm3 (0.1-0.6); Monocytes Percent Auto 7.3 % (2.6-8.5); Neutrophils Absolute Auto 7.8 K/mm3 (1.3-6.7); Neutrophils Percent Auto 81.4 % (45.5-73.1); Platelet Count Result 203 k/mm3 (150-375); Red Blood Count 3.68 M/mm3 (4.2-5.4); Red Cell Distribution Width 17.1 % (11.5-14.5); White Blood Count 9.6 K/mm3 (4.5-10.0)
[2025-04-05 09:56] LABS: INR 1.9; Prothrombin Time 21.6 Seconds (11.1-14.7)
[2025-04-05 09:57] LABS: Partial Thromboplastin Time 34.1 Seconds (22.3-36.8)
--- NOTE | 2025-04-05 09:57 | ED_ITS ---
HPI - Chest Pain General Chief Complaint: Chest Pain Stated Complaint: chest pain Time Seen by Provider: 04/05/25 09:34 Source: patient Mode of arrival: ambulatory Limitations: no limitations History of Present Illness HPI narrative: This is a 79 year old female that presents to the ER for shortness of breath, generalized weakness. Reports this has been ongoing for a year. Worsening over the last several months. Reports associated right sided chest pain. Reports her oxygen saturation has been low at home. Reports swelling in her lower extremities, she takes Bumex daily, she did not take her dose this morning. Reports a cough. Denies fevers. Related Data Home Medications ?Medication ?Instructions ?Recorded ?Confirmed ?Last Taken ?Type metoprolol tartrate 50 mg tablet 50 mg PO Q12H 10/14/19 11/17/24 07/20/24 History rivaroxaban 20 mg tablet (Xarelto) 20 mg PO DAILY 10/14/19 11/17/24 07/18/24 History vitamins A,C,K-mxmm-wvqnzc 4,296 1 cap PO BID 11/08/20 11/17/24 07/20/24 History mcg-226 mg-90 mg capsule (PreserVision AREDS) alprazolam 0.25 mg tablet (Xanax) 0.25 mg PO DAILY PRN Anxiety 02/27/22 11/17/24 07/20/24 History acetaminophen 650 mg 1,300 mg PO Q12H pain 05/05/22 11/17/24 07/20/24 History tablet,extended release empagliflozin 10 mg tablet 10 mg PO DAILY 05/29/24 11/17/24 07/20/24 History (Jardiance) loratadine 10 mg tablet (Allergy 10 mg PO DAILY PRN Allergy Symptoms 06/29/24 11/17/24 07/20/24 History Relief (loratadine)) bumetanide 2 mg tablet 2 mg PO BID 11/17/24 11/17/24 Unknown History potassium chloride 20 mEq 20 meq PO DAILY 11/17/24 11/17/24 Unknown History tablet,extended release Allergies Allergy/AdvReac Type Severity Reaction Status Date / Time Sulfa (Sulfonamide Allergy Intermediate Rash Verified 04/05/25 09:15 Antibiotics) Review of Systems 2 Review of Systems: All systems reviewed & are unremarkable except as noted in HPI and below PMFSH Past Medical History Medical History (Updated 04/05/25 @ 13:06 by Brenda Khan DO) Chronic anemia Pulmonary hypertension Diastolic heart failure Echocardiogram June 2024: Difficult study with LVH, EF of 50 55%, grade 1 diastolic dysfunction and moderate left atrial enlargement with mild pulmonary hypertension Other hyperlipidemia Restless leg syndrome History of sarcoidosis Hx of arteriovenous malformation (AVM) Iron deficiency anemia CARLOS (obstructive sleep apnea) Post-menopausal Paroxysmal atrial fibrillation Depression Colonoscopy planned Gastro-esophageal reflux Type 2 diabetes mellitus Hypothyroidism Essential hypertension Surgical History Surgical History Hx of shoulder surgery History of toe surgery History of arthroscopy of knee Family History Family History (Updated 11/17/24 @ 14:14 by OSMANY Aviles) Mother Family history of lung cancer Family history of lung disease Father Family history of arthritis Family history of heart disease in male family member before age 55 Family history of cardiovascular disease Sibling Family history of malignant neoplasm of breast in first degree relative Carcinoma of colon Breast cancer Daughter Breast cancer Social History Social History (Updated 11/17/24 @ 14:15 by OSMANY Aviles) Smoking status: Never smoker Second hand tobacco smoke exposure: Yes Alcohol intake: never Substance use: never Substance use type: does not use Do You Feel Safe in your Home?: Yes Lack of Transportation: No Lack of Food: Never True Current Housing: I Have Housing Concerned About Future Housing: No Difficulty Paying Gas/Electric Bills: No Difficulty Paying for Meds: No Currently Unemployed: No Education: Bachelor's Degree Difficulty w/ Childcare or Family Care: YES Living arrangements: with family Occupation/Education: retired 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 HEAD: Normocephalic, atraumatic. EYES: EOMI. ENT: Nares clear, no rhinorrhea or epistaxis. Mucous membranes moist. Oropharynx without tonsillar hypertrophy exudate or other lesions. CHEST: No respiratory distress. Rales in the bilateral lower lobes. No wheezes or rhonchi HEART: Regular rate and rhythm. No murmur heard. Normal peripheral pulses. EXTREMITIES: Normal range of motion. Non-pitting edema to the bilateral legs SKIN: Warm, dry, no rash. NEURO: No focal deficits. Alert and oriented x3. PSYCH: Normal mood and affect Course Course Emergency Course: patient and family updated on workup and need for admission Consultations Consultation #1: Spoke with hospitalist about patient and workup who accepts admission Date: 04/05/25 Vital Signs Vital signs: Vital Signs Temperature 97.6 F 04/05/25 09:12 Pulse Rate 66 04/05/25 09:12 Respiratory Rate 20 04/05/25 09:12 Blood Pressure 115/65 04/05/25 09:12 Pulse Oximetry 94 04/05/25 09:12 Oxygen Delivery Room Air 04/05/25 09:12 Temperature 98.1 F 04/05/25 10:47 Pulse Rate 64 04/05/25 10:47 Respiratory Rate 21 H 04/05/25 10:47 Blood Pressure 117/84 04/05/25 10:47 Pulse Oximetry 98 04/05/25 10:47 Oxygen Delivery Nasal Cannula 04/05/25 10:31 Oxygen Flow Rate 3 04/05/25 10:31 MDM - Chest Pain Differential Diagnosis Differential diagnosis: Likely stable angina, atypical chest pain, costochondritis, chest pain and other (pleurisy, pneumonia, CHF) Lab Data Attestation: I reviewed the patient's lab results. 04/05/25 09:35 04/05/25 09:35 Labs: Lab Results 04/05/25 04/05/25 04/05/25 Range/Units 09:35 09:35 10:51 WBC 9.6 (4.5-10.0) K/mm3 RBC 3.68 L (4.2-5.4) M/mm3 Hgb 8.7 L (12.0-15.0) g/dL Hct 30.3 L (37.0-47.0) % MCV 82.3 (80-100) fl MCH 23.6 L (26-34) pg MCHC 28.7 L (32-36) g/dl RDW 17.1 H (11.5-14.5) % Plt Count 203 (150-375) k/mm3 MPV 10.0 (7.4-10.4) fl Immature Gran % (Auto) 0.3 (0-0.5) % Neut % (Auto) 81.4 H (45.5-73.1) % Lymph % (Auto) 8.8 L (18.3-44.2) % [place] % (Auto) 7.3 (2.6-8.5) % Eos % (Auto) 1.7 (0-4.4) % Baso % (Auto) 0.5 (0.2-1.2) % Lymph # (Auto) 0.84 L (0.9-3.2) K/mm3 [place] # (Auto) 0.7 H (0.1-0.6) K/mm3 Eos # (Auto) 0.2 (0-0.3) K/mm3 Baso # (Auto) 0.1 (0.0-0.1) K/mm3 Abs Immat Gran (auto) 0.03 (0.00-0.031) K/mm3 Absolute Neuts (auto) 7.8 H (1.3-6.7) K/mm3 Absolute Nucleated RBC 0.000 (0.0-0.012) K/mm3 Band Neutrophils % Not Reportable Nucleated RBC % 0.0 (0.0-0.2) % Platelet Estimate Adequate (Adequate) Hypochromasia 1+ Anisocytosis 1+ Schistocytes None seen PT 21.6 H (11.1-14.7) Seconds INR 1.9 APTT 34.1 (22.3-36.8) Seconds D-Dimer 0.53 H (<0.48) ug/mL Sodium 137 (137-145) mmol/L Potassium 2.9 L (3.4-5.0) mmol/L Chloride 97 L (98-107) mmol/L Carbon Dioxide 34 H (22-30) mmol/L Anion Gap 6 (4-12) mmol/L BUN 17 (7-17) mg/dL Creatinine 0.99 (0.7-1.0) mg/dL Estim Creat Clear Calc Not Reportable Estimated GFR 54 L (59 - ) Glucose 120 H (65-110) mg/dL Calcium 8.6 (8.4-10.2) mg/dL Magnesium 1.6 Cancelled (1.6-2.3) mg/dL Total Bilirubin 0.9 (0.2-1.3) mg/dL AST 30 (14-36) U/L ALT 21 (6-35) U/L Alkaline Phosphatase 85 (38-126) U/L Troponin I < 0.012 (0.000-0.034) ng/mL NT-Pro-B Natriuret Pep 4090 H (19.9-100) pg/mL Total Protein 7.0 (6.3-8.2) g/dL Albumin 3.7 (3.5-5.1) g/dL Lipase 51 (23-300) U/L Influenza A (RT-PCR) Negative (Negative) Influenza B (RT-PCR) Negative (Negative) RSV (RT-PCR) Negative (Negative) SARS-CoV-2 RNA (RT-PCR) Negative (Negative) ECG Data EKG #1: ECG completion date: 04/05/25 EKG Interpretation: normal rate, sinus rhythm, non-specific ST changes, normal QT and no acute changes (compared to EKG 06/27) Critical Care Time Critical Care Time Critical Care Time: Yes Total Critical Care Time: 35 Discharge Plan Discharge Clinical Impression: Acute hypoxic respiratory failure, Acute hypokalemia, Pleural effusion CHF (congestive heart failure) Qualifiers: Heart failure type: unspecified Heart failure chronicity: unspecified Qualified Code(s): I50.9 - Heart failure, unspecified Patient Disposition: Still a Patient Condition: Improved
[2025-04-05 09:58] LABS: Alanine Aminotransferase 21 U/L (6-35); Albumin Level 3.7 g/dL (3.5-5.1); Alkaline Phosphatase 85 U/L (38-126); Anion Gap 6 mmol/L (4-12); Aspartate Amino Transferase 30 U/L (14-36); Bilirubin,Total 0.9 mg/dL (0.2-1.3); Blood Urea Nitrogen 17 mg/dL (7-17); Calcium 8.6 mg/dL (8.4-10.2); Carbon Dioxide 34 mmol/L (22-30); Chloride 97 mmol/L (98-107); Estimated Glomerular Filt Rate 54; Glucose 120 mg/dL (65-110); Lipase 51 U/L (23-300); Potassium 2.9 mmol/L (3.4-5.0); Sodium 137 mmol/L (137-145)
[2025-04-05 10:03] LABS: Anisocytosis 1+; Hypochromasia 1+; Platelet Estimate Adequate (Adequate); Schistocytes None Seen
[2025-04-05 10:10] LABS: Troponin I < 0.012 ng/mL (0.000-0.034)
[2025-04-05 10:17] LABS: Magnesium 1.6 mg/dL (1.6-2.3)
[2025-04-05 10:27] LABS: NT Pro B Type Natriuretic Pept 4090 pg/mL (19.9-100)
[2025-04-05] MEDS: POTASSIUM CHLORIDE 20 MEQ ER TABLET 40 MEQ PO (10:51)
[2025-04-05] MEDS: MAGNESIUM SULF 2 GM/WATER 50ML 2 GM/50 ML BAG IVPB (10:51)
--- OUTSIDE RECORDS SUMMARY | 2025-04-05 10:59 | XMS_ITS | Encounter Summary ---
Author Organization [facility] Address [address] [address] Care Team Providers Care Miner Operator Name Role Phone Akil Chan MD Primary Care Provider [phone] Vinod López DO Primary Care Provider [phone] Thanh Alexandre MD, Flash Unavailable [phone] Encounter Details Date Type Department Care Team (Late st Contact Info) Description 02/12/2017 Orders Only [facility] ProviderLisa MD [address] [place], [place] [id number] Social History Tobacco Use Types Packs/Day Years Used Date Smoking Tobacco: Never Alcohol Use Standard Drinks/Week Comments Yes 0 (1 standard drink = 0.6 oz pur e alcohol) Comments Unknown Sex and Gender Information Value Date Recorded Sex Assigned at Not on file Legal Sex Female 3:20 AM REMARKETING MANAGER Gender Identity Female 11/18/2019 4:40 AM REMARKETING MANAGER Sexual Orientation Straight 11/18/2019 4: 40 AM REMARKETING MANAGER documented as of this encounter Plan [...] on filedocumented in this encounter Care Teams Miner Operator Relationship Specialty Start Date End Date Akil Chan MD [address] [place] [address] PCP - General 02/05/17 11/10/19 Vinod López DO [address] [place] [address] PCP - General Internal Medicine 11/11/19 Flash Law Jr., MD [address] [place] [address] Medical Oncologist/Assistant To The President Medical Oncology 12/14/19 documented as of this encounter
--- OUTSIDE RECORDS SUMMARY | 2025-04-05 10:59 | XMS_ITS | Clinical Summary ---
Author Organization [facility] Address [address] [place] [address] Care Team Providers Care Fondant Machine Operator Name Role Phone Vinod López Primary Care Provider [phone] Source Comments [facility],non-owned Affiliates and Associated Physician Practices is amultiple site organization consisting of ambulatory clinics and hospital sitesin [place], [place], [place] and [place]. This disclosure is being madepursuant to the Care Everywhere program and may not contain all information available regarding this patient. Last updated 18.[facility] Allergies Active Allergy Reactions Criticality Noted Date [...] on file Legal Sex Female 8:43 PM HEAD BOYS TENNIS COACH Gender Identity Not on file Sexual Orientation Not on file Last Filed Vital Signs Vital Sign Reading Time Taken Comments Blood Pressure 136/82 11/07/2020 10:57 AM HEAD BOYS TENNIS COACH Pulse 70 11/07/2020 10:57 AM HEAD BOYS TENNIS COACH Temperature - - Respiratory Rate 12 11/07/2020 10:5 7 AM HEAD BOYS TENNIS COACH Oxygen Saturation - - Inhaled Oxygen Concentration - - Weight 124.4 kg (274 lb 3.2 oz) 021 10:57 AM HEAD BOYS TENNIS COACH Height 160 cm (5' 3) 11/07/2020 10:57 AM HEAD BOYS TENNIS COACH Body Mass Index 48.57 11/07/2020 10:57 AM HEAD BOYS TENNIS COACH Plan of Treatment Health Maintenance Due Date [...] age to complete this topic Insurance MEDICARE [facility] MEDICARE SELF PAY NO INSURANCE Member Subscriber Plan / Payer (Ef fective for All Dates) Name:Alessandra Sam Member ID:Not on file Relation to Subscriber:Not on file Name:ALESSANDRA SAM Subscriber ID:Not on file (Home) Address: [address] [place] [id number] Payer ID:Not on file Group ID:Not on file Type:Self Pay Address: [place], [place] Care Teams Fondant Machine Operator Relationship Specialty Start Date End Date Vinod López DO [address] [place], [place] [id number] PCP - General Internal Medicine 04/03/19
--- OUTSIDE RECORDS SUMMARY | 2025-04-05 10:59 | XMS_ITS | Clinical Summary ---
Author Organization [facility] Address [address] [place] [address] Care Team Providers Care Cremator Name Role Phone Vinod López DO Primary Care Provider [phone] Thanh Alexandre MD, Flash Unavailable [phone] Allergies Active Allergy Reactions Criticality Noted Date [...] by mouth daily. 0 8 Active vit C,R-Rg-xgbmb-lut ein-zeaxan [id number] ye-flaf-cs-mg capsule Take 1 capsule by mouth 2 [...] Sister 2 Bell Kam Sister 3 Corinne Mattoon Son Bill Osorio Social History Tobacco Use Types Packs/Day Years Used Date Smoking Tobacco: Never Smokeless Tobacco: Never Alcohol Use Standard Drinks/Week Comments Yes 0 (1 standard drink = 0.6 oz pure alcohol) Very rarely - wine holiday meal Comments Unknown Sex and Gender Information Value Date Recorded Sex Assigned at Not on file Legal Sex Female 3:20 AM POSTDOCTORAL RESEARCH ASSOCIATE Gender Identity Female 11/18/2019 4:40 AM POSTDOCTORAL RESEARCH ASSOCIATE Sexual Orientation Straight 11/18/2019 4: 40 AM POSTDOCTORAL RESEARCH ASSOCIATE Obstetrics History Last Filed Vital Signs Vital Sign Reading Time Taken Comments Blood Pressure 146/83 01/06/2020 2:08 PM POSTDOCTORAL RESEARCH ASSOCIATE rn notified Pulse 61 01/06/2020 2:08 PM POSTDOCTORAL RESEARCH ASSOCIATE Temperature 36.8 C (98.3 F) 01/06/2020 2:08 PM POSTDOCTORAL RESEARCH ASSOCIATE Respiratory Rate 16 01/06/2020 2:08 PM POSTDOCTORAL RESEARCH ASSOCIATE Oxygen Saturation 97% 01/06/2020 2:0 8 PM POSTDOCTORAL RESEARCH ASSOCIATE Inhaled Oxygen Concentration - - Weight 124 kg (273 lb 6.4 oz) 0 2:08 PM POSTDOCTORAL RESEARCH ASSOCIATE Height 161.3 cm (5' 3.5) 01/06/2020 2: 08 PM POSTDOCTORAL RESEARCH ASSOCIATE Body Mass Index 47.66 01/06/2020 2:08 PM POSTDOCTORAL RESEARCH ASSOCIATE Plan of Treatment Not on file Insurance MEDICARE FOR LIFE MEDICARE FOR LIFE MEDICARE FOR LIFE Care Teams Cremator Relationship Specialty Start Date End Date Vinod López DO PCP - General Internal Medicine 11/11/19 Flash Law Jr., MD Medical Oncologist/Administrative Director Medical Oncology 12/14/19
--- OUTSIDE RECORDS SUMMARY | 2025-04-05 10:59 | XMS_ITS | Referral Summary ---
Author Organization [facility] Address [address] [place] [address] Care Team Providers Care Donor Center Technician Name Role Phone Vinod López DO Primary Care Provider [phone] Thanh Alexandre MD, Flash Unavailable [phone] Allergies Active Allergy Reactions Criticality Noted Date [...] by mouth daily. 0 8 Active vit C,T-Qv-olggc-lut ein-zeaxan [id number] vq-gnrb-wf-mg capsule Take 1 capsule by mouth 2 [...] on file Legal Sex Female 3:20 AM SUPERVISOR MACHINING Gender Identity Female 11/18/2019 4:40 AM SUPERVISOR MACHINING Sexual Orientation Straight 11/18/2019 4: 40 AM SUPERVISOR MACHINING Last Filed Vital Signs Vital Sign Reading Time Taken Comments Blood Pressure 146/83 01/06/2020 2:08 PM SUPERVISOR MACHINING rn notified Pulse 61 01/06/2020 2:08 PM SUPERVISOR MACHINING Temperature 36.8 C (98.3 F) 01/06/2020 2:08 PM SUPERVISOR MACHINING Respiratory Rate 16 01/06/2020 2:08 PM SUPERVISOR MACHINING Oxygen Saturation 97% 01/06/2020 2:0 8 PM SUPERVISOR MACHINING Inhaled Oxygen Concentration - - Weight 124 kg (273 lb 6.4 oz) 0 2:08 PM SUPERVISOR MACHINING Height 161.3 cm (5' 3.5) 01/06/2020 2: 08 PM SUPERVISOR MACHINING Body Mass Index 47.66 01/06/2020 2:08 PM SUPERVISOR MACHINING Plan of Treatment Not on file Insurance MEDICARE FOR LIFE MEDICARE FOR LIFE MEDICARE [facility] FOR LIFE Care Teams Donor Center Technician Relationship Specialty Start Date End Date Vinod López DO PCP - General Internal Medicine 11/11/19 Flash Law Jr., MD Medical Oncologist/Compressor Station Engineer Medical Oncology 12/14/19
--- OUTSIDE RECORDS SUMMARY | 2025-04-05 10:59 | XMS_ITS | Continuity of Care Document ---
Author Name [facility] Organization [facility] Care Team Providers Care Parasitology Teacher Name Role Phone [facility] Unavailable Unavailable Medications Combined list of outpatient [...] BOEHRINGER ING., 30 ea. BOTTLE Cancele d [id number] : 2023 0 Pharmac y Data Transac tion Service Facilit y JARDIANCE (EMPAGLIFLO ZIN), 10 MG, TABLET, ORAL, BOEHRINGER ING., 90 ea. BOTTLE Active [id number] 4 2023 90 Pharmac y Data Transac tion Service Facilit y METOPROLOL TARTRATE (metoprolol tartrate), 50 MG, TABLET, ORAL, [employer] 1000 ea. BOTTLE Active [id number] 4 2023 180 Pharmac y Data Transac tion Service Facilit y OMEPRAZOLE (omeprazole ), 20 MG, CAPSULE DR ORAL, [employer], 1000 ea. BOTTLE Active [id number] 4 2023 180 Pharmac y Data Transac tion Service Facilit y OMEPRAZOLE (omeprazole ), 20 MG, CAPSULE DR ORAL, [employer], 1000 ea. BOTTLE Active [id number] 4 2023 180 Pharmac y Data Transac tion Service Facilit y Allergies, Adverse Reactions, Alerts Combined list of allergies from Department of Defense and Veterans Affairs facilities. It does not include entries that were removed or entered in error. Substance Category Reaction Severity Reaction type Status Date Reported Comments Source SULFA-DRUGS Drug allergy (disorder) Unknown active 10/01/2006 [facility] Jayesh RIZVI ([facility]) Immunizations Combined list of available immunizations from the Department of Defense and Veterans Affairs facilities. Immunization Series Date Given Administered By Site Reaction Lot Number CVX Code Drug Mandrel Press Hand Status Comments Source Influenza vaccine, quadrivalent, adjuvanted 2020 YVAN, () Not Given Influenza vaccine, quadrival ent, adjuvante d [facility] COVID-19, mRNA, LNP-S, PF, 30 mcg/0.3 mL dose 2020 TONY, [employer] [place] (PFR) Not Given COVID-19, mRNA, LNP-S, PF, 30 mcg/0.3 mL dose DoD COVID-19, mRNA, LNP-S, PF, 30 mcg/0.3 mL dose 2020 YVAN, [employer] [place] (PFR) Not Given COVID-19, mRNA, LNP-S, PF, 30 mcg/0.3 mL dose DoD COVID-19, mRNA, LNP-S, PF, 30 mcg/0.3 mL dose 2020 CORINNE, [employer] [place] (PFR) Not Given COVID-19, mRNA, LNP-S, [...]
--- NOTE | 2025-04-05 11:16 | PC.NURSE ---
interregated pacemaker per ANA morgan
[2025-04-05 11:21] LABS: D Dimer 0.53 ug/mL (<0.48)
[2025-04-05] MEDS: FUROSEMIDE INJ 40 MG/4 ML VIAL IV PUSH ×2 (12:06→17:54)
[2025-04-05 12:22] LABS: Influenza A QL RT-PCR Negative (Negative); Influenza B QL RT-PCR Negative (Negative); RSV RNA, RT-PCR Negative (Negative); SARS-CoV-2 RNA PCR Negative (Negative)
--- NOTE | 2025-04-05 12:51 | PM.IMHP ---
H&P: HPI History of Present Illness Date/Time: 04/05/25 12:51 Chief Complaint: Chest pain, shortness a breath Narrative: 79-year-old female with past medical history of sarcoidosis, essential hypertension, diastolic CHF, pulmonary hypertension, paroxysmal atrial fibrillation, type 2 diabetes mellitus, hypothyroidism and GERD who presented to the ER with chest pain, shortness of breath with exertion and nonproductive cough. The patient reports that she has had shortness of breath for about the last 6 months. It is been slowly getting worse. She has also been having increased lower extremity edema for the last 2-3 months. She has been taking her Bumex as directed and her dose has not changed in the last 6 months or so. She denies any palpitations, fevers or chills. She reports that her shortness of breath usually gets better when she rests. She developed some chest pressure is on the right side and somewhat medial and it just makes it feel like she cannot catch her breath. Situation has been more complicated since she has moved into independent living facility at [facility]. She reports that she has been so short of breath she has not been able to ambulate to the dining room for the last 3 weeks or so. She reports that she had to move there because her was placed in Memory Care. She denies any diaphoresis or palpitations. She does have obstructive sleep apnea but is intolerant to CPAP. She reports that for the last couple of months she has bad and having difficulty with her blood pressure dropping when she gets up to ambulate. She states that her heart doctor put her on Jardiance to try to help with her cardiac function but she did not tolerate this as it made her mouth more dry. She reports that her mouth is so dry that she occasionally has difficulty swallowing her food and pills. She sees a retail services professional in [place] but she only sees him once a year. She has not talked to her retail services professional regarding her symptoms. She re developed new nonproductive cough over the last day or so. COVID flu and RSV PCR were negative in the ER. Patient was noted to be hypoxic in the ER with sats of 88% on room air. She denies any history of oxygen use at home. Source of information comes patient who is a good historian and firm review of past medical records/external medical records and ER physician report. Review of Systems Review of Systems: 12 systems were reviewed with pertinent positives and negatives per HPI. Except as documented in the HPI, all other systems were reviewed and are negative. [facility] Past Medical History Medical History (Updated 04/05/25 @ 15:49 by Brenda Khan DO) Chronic anemia Pulmonary hypertension Diastolic heart failure Echocardiogram June 2024: Difficult study with LVH, EF of 50 55%, grade 1 diastolic dysfunction and moderate left atrial enlargement with mild pulmonary hypertension Other hyperlipidemia Restless leg syndrome History of sarcoidosis Hx of arteriovenous malformation (AVM) Iron deficiency anemia CARLOS (obstructive sleep apnea) Intolerant to CPAP Post-menopausal Paroxysmal atrial fibrillation Depression Colonoscopy planned Gastro-esophageal reflux Type 2 diabetes mellitus Hypothyroidism Essential hypertension Surgical History Surgical History (Updated 04/05/25 @ 15:56 by Brenda Khan DO) Status post cataract extraction of both eyes with insertion of intraocular lens History of right shoulder replacement History of toe surgery History of arthroscopy of knee Family History Family History Mother Family history of lung cancer Family history of lung disease Father Family history of arthritis Family history of heart disease in male family member before age 55 Family history of cardiovascular disease Sibling Family history of malignant neoplasm of breast in first degree relative Carcinoma of colon Breast cancer Daughter Breast cancer Social History Social History (Updated 04/05/25 @ 15:55 by Brenda Khan DO) Social History: Patient moved to [facility] March 2025. She is a lifelong nonsmoker and denies any history of alcohol use. Her and her raised 1 son and 4 daughters. 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 Code status: DNR/DNI (per patient request) Healthcare power of field enumerator: Patricia (daughter) Smoking status: Never smoker Second hand tobacco smoke exposure: No Alcohol intake: never Substance use: never Substance use type: does not use Do You Feel Safe in your Home?: Yes Lack of Transportation: No Lack of Food: Never True Current Housing: I Have Housing Concerned About Future Housing: No Difficulty Paying Gas/Electric Bills: No Difficulty Paying for Meds: No Currently Unemployed: No Education: Bachelor's Degree Difficulty w/ Childcare or Family Care: No Living arrangements: skilled nursing [facility] Occupation/Education: retired 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 Gender identity (if verbalized by the patient): Female Spiritual care concerns: No Meds Home Medications and Allergies Home Medications ?Medication ?Instructions ?Recorded ?Confirmed ?Type metoprolol tartrate 50 mg tablet 50 mg PO Q12H 10/14/19 04/05/25 History rivaroxaban 20 mg tablet (Xarelto) 20 mg PO DAILY 10/14/19 04/05/25 History vitamins A,C,L-flnm-ulhzzi 4,296 1 cap PO BID 11/08/20 04/05/25 History mcg-226 mg-90 mg capsule (PreserVision AREDS) alprazolam 0.25 mg tablet (Xanax) 0.25 mg PO DAILY PRN Anxiety 02/27/22 04/05/25 History acetaminophen 650 mg 1,300 mg PO Q12H pain 05/05/22 04/05/25 History tablet,extended release tramadol 50 mg tablet 50 mg PO QHS PRN pain #30 tabs 11/21/23 04/05/25 Rx gabapentin 600 mg tablet 600 mg PO TID #270 tabs 09/03/24 04/05/25 Rx metformin 500 mg tablet 500 mg PO BID #180 tabs 11/05/24 04/05/25 Rx bumetanide 2 mg tablet 2 mg PO BID 11/17/24 04/05/25 History levothyroxine 125 mcg tablet See Rx Instructions .Route 11/30/24 04/05/25 Rx .COMPLEX #90 tabs rosuvastatin 10 mg tablet (Crestor) 10 mg PO DAILY #90 tabs 11/30/24 04/05/25 Rx fluoxetine 20 mg capsule (Prozac) 40 mg (2 x 20 mg) PO DAILY #180 12/17/24 04/05/25 Rx caps pramipexole 1 mg tablet 1 mg PO TID #270 tabs 02/09/25 04/05/25 Rx omeprazole 20 mg capsule,delayed 20 mg PO BID #180 caps 02/18/25 04/05/25 Rx release Allergies Allergy/AdvReac Type Severity Reaction Status Date / Time Sulfa (Sulfonamide Allergy Intermediate Rash Verified 04/05/25 09:15 Antibiotics) Vital Signs Vital Signs - 24 hr 04/05/25 09:12 04/05/25 09:37 04/05/25 10:10 Temperature 97.6 F 98.2 F Pulse Rate 66 67 Respiratory Rate 20 16 Blood Pressure 115/65 111/55 L Pulse Oximetry 94 95 88 L Oxygen Delivery Room Air Oxygen Flow Rate 04/05/25 10:31 04/05/25 10:47 Temperature 98.1 F Pulse Rate 64 Respiratory Rate 21 H Blood Pressure 117/84 Pulse Oximetry 100 98 Oxygen Delivery Nasal Cannula Oxygen Flow Rate 3 Exam Narrative: Weight 112.5 kg BMI 43.9 Const: Other: Morbidly Obese, no acute distress, appears stated age HENMT: Other: Mucous membranes are dry, no oral pharyngeal erythema, crowded posterior oropharynx Eyes: Other: Bilateral lens implants noted, no scleral icterus, positive conjunctival pallor Neck: Other: No JVD, large neck circumference Resp: Other: Clear to auscultation bilaterally, no increased work of breathing Cardio: Other: Regular rate, regular rhythm, 2+ bilateral radial and pedal pulses, no murmur, no JVD GI: Other: Soft, nontender, obese, normoactive bowel sounds Skin: Other: Generalized pallor, non jaundice Neuro: Other: Alert oriented, speech is clear, no facial asymmetry, no localizing neurologic deficits noted during the course of conversation Extrem: Other: 1 to 2+ pitting edema bilateral lower extremities, moves all extremities equally Psych: Other: Appropriate mood and affect, judgment and insight intact, pleasant and cooperative H&P: Results Labs Labs: Laboratory Tests 04/05/25 09:35 04/05/25 09:35 04/05/25 04/05/25 04/05/25 09:35 09:35 10:51 WBC 9.6 RBC 3.68 L Hgb 8.7 L Hct 30.3 L MCV 82.3 MCH 23.6 L MCHC 28.7 L RDW 17.1 H Plt Count 203 MPV 10.0 Immature Gran % (Auto) 0.3 Neut % (Auto) 81.4 H Lymph % (Auto) 8.8 L Russell % (Auto) 7.3 Eos % (Auto) 1.7 Baso % (Auto) 0.5 Lymph # (Auto) 0.84 L Russell # (Auto) 0.7 H Eos # (Auto) 0.2 Baso # (Auto) 0.1 Abs Immat Gran (auto) 0.03 Absolute Neuts (auto) 7.8 H Absolute Nucleated RBC 0.000 Band Neutrophils % Not Reportable Nucleated RBC % 0.0 Platelet Estimate Adequate Hypochromasia 1+ Anisocytosis 1+ Schistocytes None seen PT 21.6 H INR 1.9 APTT 34.1 D-Dimer 0.53 H Sodium 137 Potassium 2.9 L Chloride 97 L Carbon Dioxide 34 H Anion Gap 6 BUN 17 Creatinine 0.99 Estim Creat Clear Calc Not Reportable Estimated GFR 54 L Glucose 120 H Calcium 8.6 Magnesium 1.6 Cancelled Total Bilirubin 0.9 AST 30 ALT 21 Alkaline Phosphatase 85 Troponin I < 0.012 NT-Pro-B Natriuret Pep 4090 H Total Protein 7.0 Albumin 3.7 Lipase 51 Influenza A (RT-PCR) Negative Influenza B (RT-PCR) Negative RSV (RT-PCR) Negative SARS-CoV-2 RNA (RT-PCR) Negative 04/05/25 12:24 WBC RBC Hgb Hct MCV MCH MCHC RDW Plt Count MPV Immature Gran % (Auto) Neut % (Auto) Lymph % (Auto) Russell % (Auto) Eos % (Auto) Baso % (Auto) Lymph # (Auto) Russell # (Auto) Eos # (Auto) Baso # (Auto) Abs Immat Gran (auto) Absolute Neuts (auto) Absolute Nucleated RBC Band Neutrophils % Nucleated RBC % Platelet Estimate Hypochromasia Anisocytosis Schistocytes PT INR APTT D-Dimer Sodium Potassium Chloride Carbon Dioxide Anion Gap BUN Creatinine Estim Creat Clear Calc Estimated GFR Glucose Calcium Magnesium Total Bilirubin AST ALT Alkaline Phosphatase Troponin I < 0.012 NT-Pro-B Natriuret Pep Total Protein Albumin Lipase Influenza A (RT-PCR) Influenza B (RT-PCR) RSV (RT-PCR) SARS-CoV-2 RNA (RT-PCR) Impressions Chest X-Ray 04/05/25 09:54 changes consistent with either pulmonary vascular congestion or patient's history of sarcoid on my review) Impression: Minimal right pleural effusion. Stable cardiomegaly, with pacemaker device. EKG:Test Date: 2025-04-05 09:16:39 Measurements Intervals [place] Rate: 63 P: 47 ND: 156 QRS: 0 QRSD: 103 T: -22 QT: 467 QTc: 481 Interpretive Statements SINUS RHYTHM INCOMPLETE RIGHT BUNDLE BRANCH BLOCK VOLTAGE CRITERIA FOR LVH ST DEVIATION AND MODERATE T-WAVE ABNORMALITY IN ANT/INF LEADS, CONSIDER ISCHEMIA BASELINE ARTIFACT- I, II, AVR, AVL ABNORMAL ECG Compared to ECG 07/01/2024 09:00:31 ATRIAL FIBRILLATION NO LONGER PRESENT Assessment and Plan Assessment and plan (1) Acute exacerbation of chronic heart failure: Code(s): I50.9 - Heart failure, unspecified Status: Acute Assessment and Plan: Acute exacerbation of chronic diastolic heart failure. Patient received 40 mg IV Lasix in the ER. Will hold home Bumex. Will continue Lasix 40 mg IV b.i.d.. Will monitor strict I&O's and daily weights. Will monitor electrolyte panel with repeat in a.m.. (2) Acute hypokalemia: Code(s): E87.6 - Hypokalemia Status: Acute Assessment and Plan: Patient received 40 mEq potassium chloride in the ER. Will repeat electrolyte panel in a.m. and replace as appropriate. Will monitor her rhythm on telemetry. (3) Hypomagnesemia: Code(s): E83.42 - Hypomagnesemia Status: Acute Assessment and Plan: The patient is borderline low magnesium. Received 2 g magnesium sulfate rider in ER. Will repeat magnesium level in a.m.. Will monitor heart rhythm on telemetry. (4) Chronic anemia: Code(s): D64.9 - Anemia, unspecified Status: Acute Assessment and Plan: Hemoglobin is slightly down from baseline. Possibly due to dilution from CHF and increased intravascular volume. No acute signs of bleeding. Patient does have history of iron deficiency anemia from chronic loss and is on Xarelto. Will repeat CBC in a.m. and monitor. (5) Elevated d-dimer: Code(s): R79.89 - Other specified abnormal findings of blood chemistry Status: Acute Assessment and Plan: Only minimally elevated and not likely be clinically significant given her chronic Xarelto use. (6) Type 2 diabetes mellitus: Qualifiers: Diabetes mellitus complication status: without complication Diabetes mellitus assisted insulin use: without exterminator helper termite use Qualified Code(s): E11.9 - Type 2 diabetes mellitus without complications Code(s): E11.9 - Type 2 diabetes mellitus without complications Status: Acute Assessment and Plan: Currently euglycemic. Will hold home metformin and will place on low-dose sliding scale insulin with Accu-Cheks a.c. HS and hypoglycemia protocol. (7) Gastro-esophageal reflux: Qualifiers: Esophagitis presence: esophagitis presence not specified Qualified Code(s): K21.9 - Gastro-esophageal reflux disease without esophagitis Code(s): K21.9 - Gastro-esophageal reflux disease without esophagitis Status: Acute Assessment and Plan: Continue home PPI. (8) CARLOS (obstructive sleep apnea): Code(s): G47.33 - Obstructive sleep apnea (adult) (pediatric) Status: Acute Assessment and Plan: Patient is intolerant to CPAP and is not willing to try CPAP. She understands that CPAP may help reduce the strain on her heart but she cannot tolerate it due to dry mouth. Plan Patient has been admitted as observation status. Quality VTE Prophylaxis VTE prophylaxis: pharmacologic ordered (Continue home Xarelto.) Hospitalist [facility] Advance Care Plan I have confirmed that the patient's Advanced Care Plan is present, code status is documented, or surrogate decision maker is listed in patient medical record.: Yes Medication Reconciliation I have utilized all available resources to obtain, update and review the patients current medications (includes all prescriptions, OTC, herbals, cannabis, and nutritional supplements).: Yes
[2025-04-05 12:52] LABS: Troponin I < 0.012 ng/mL (0.000-0.034)
--- NOTE | 2025-04-05 15:58 | IVDEFINITY ---
Prior to administration of IV Definity the patient was educated on the risks and benefits of the imaging enhancing agent including potential adverse side effects. The patient verbalized understanding. Allergies were verified. No exclusion criteria were identified and at least one of the following inclusion criteria were met: 1) physician request, 2) patient technically difficult to image (per the [place] [employer] Echocardi[employer] guidelines of two or more segments not discernable within the apical view), or 3) questionable left ventricular function. ?
[2025-04-05] MEDS: PERFLUTREN LIPID MICROSPHERES 1.5 ML VIAL DILUTED TO 10 ML TOTAL VOLUME IV PUSH (15:59)
--- NOTE | 2025-04-05 16:24 | ADMGEN ---
This patient, Nikole Osorio, was admitted to 3 [facility] Surg Room 315-01. Patient/family oriented to hospital policies and general routines including ID bracelet, bed and alarms, visiting hours, pain management, procedures, bathroom and other care routines, personal items, smoking policy, room service/diet, and visiting hours. Information on how to activate the Rapid Response Team has been discussed. Patient/Family are encouraged to report perceived risks to care and to ask questions if they do not understand what they are told or what they should do.
[2025-04-05 17:05] LABS: Glucose Point of Care 111 mg/dl (65-105)
[2025-04-05 20:48] LABS: Glucose Point of Care 123 mg/dl (65-105)
[2025-04-06] VITALS (11 sets, daily range): BP systolic 82–117; BP diastolic 56–71; PULSE 63–112; RESP 20; TEMP 35.7–36.6; O2SAT 94–98
[2025-04-06 06:16] LABS: Anion Gap 8 mmol/L (4-12); Blood Urea Nitrogen 13 mg/dL (7-17); Calcium 8.3 mg/dL (8.4-10.2); Carbon Dioxide 32 mmol/L (22-30); Chloride 96 mmol/L (98-107); Estimated CRCL calculation 60 ml/min; Estimated Glomerular Filt Rate > 60; Glucose 108 mg/dL (65-110); Potassium 2.9 mmol/L (3.4-5.0); Sodium 136 mmol/L (137-145)
[2025-04-06 06:39] LABS: Hematocrit 28.4 % (37.0-47.0); Hemoglobin 8.1 g/dL (12.0-15.0); Mean Corpuscular HGB Conc 28.5 g/dl (32-36); Mean Corpuscular Hemoglobin 23.6 pg (26-34); Mean Corpuscular Volume 82.8 fl (80-100); Mean Platelet Volume 10.7 fl (7.4-10.4); Platelet Count Result 160 k/mm3 (150-375); Red Blood Count 3.43 M/mm3 (4.2-5.4); Red Cell Distribution Width 17.2 % (11.5-14.5); White Blood Count 8.1 K/mm3 (4.5-10.0)
--- NOTE | 2025-04-06 07:30 | P.PNIM_ITS ---
Progress Note: A&P Assessment and Plan (1) Acute exacerbation of chronic heart failure: Code(s): I50.9 - Heart failure, unspecified Status: Acute Assessment and Plan: * Acute exacerbation of chronic diastolic heart failure. * Received 40 mg IV Lasix in the ER. Will hold home Bumex. * Will continue Lasix 40 mg IV b.i.d.. * Will monitor strict I&O's and daily weights. * Will monitor electrolyte panel with repeat in a.m.. (2) Acute hypokalemia: Code(s): E87.6 - Hypokalemia Status: Acute Assessment and Plan: * Patient received 40 mEq potassium chloride in the ER. * Will repeat electrolyte panel in a.m. and replace as appropriate. * Will monitor her rhythm on telemetry. * 04/06: Potassium still 2.9, will replace as needed (3) Hypomagnesemia: Code(s): E83.42 - Hypomagnesemia Status: Acute Assessment and Plan: * The patient is borderline low magnesium. * Received 2 g magnesium sulfate rider in ER. * Will repeat magnesium level in a.m.. * Will monitor heart rhythm on telemetry. (4) Chronic anemia: Code(s): D64.9 - Anemia, unspecified Status: Acute Assessment and Plan: * Hemoglobin is slightly down from baseline. * Possibly due to dilution from CHF and increased intravascular volume. * No acute signs of bleeding. 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 * Will repeat CBC in a.m. and monitor. (5) Elevated d-dimer: Code(s): R79.89 - Other specified abnormal findings of blood chemistry Status: Acute Assessment and Plan: * Only minimally elevated and not likely be clinically significant given her chronic Xarelto use. 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 * Will hold home metformin and will place on low-dose sliding scale insulin with Accu-Cheks a.c. * HS and hypoglycemia protocol. (7) Gastro-esophageal reflux: Qualifiers: Esophagitis presence: esophagitis presence not specified Qualified Code(s): K21.9 - Gastro-esophageal reflux disease without esophagitis Code(s): K21.9 - Gastro-esophageal reflux disease without esophagitis Status: Acute Assessment and Plan: * Continue home PPI. (8) CARLOS (obstructive sleep apnea): Code(s): G47.33 - Obstructive sleep apnea (adult) (pediatric) Status: Acute Assessment and Plan: * Patient is intolerant to CPAP and is not willing to try CPAP. She understands that CPAP may help reduce the strain on her heart but she cannot tolerate it due to dry mouth. Plan * Patient has been admitted as observation status. Subjective Date/time seen: 04/06/25 07:30 Interval history: 79-year-old female with pmhx of sarcoidosis, HTN, diastolic CHF, pulmonary HTN, paroxysmal afib, T2DM, hypothyroidism and GERD who presented to the ER with chest pain, shortness of breath with exertion and nonproductive cough. 04/06/2025 Patient sitting comfortably in bed at time of examination. Denies any chest pain, shortness of breath, or abdominal pain this time. States that breathing feels improved, potassium still remains low at 2.9, but will continue supplementing. Echocardiogram performed yesterday. Review of Systems Review of Systems: 12 systems were reviewed with pertinent positives and negatives per HPI. Except as documented in the HPI, all other systems were reviewed and are negative. Exam Narrative: Weight 112.5 kg BMI 43.9 Const: Other: Morbidly Obese, no acute distress, appears stated age HENMT: Other: Mucous membranes are dry, no oral pharyngeal erythema, crowded posterior oropharynx Eyes: Other: Bilateral lens implants noted, no scleral icterus, positive conjunctival pallor Neck: Other: No JVD, large neck circumference Resp: Other: Clear to auscultation bilaterally, no increased work of breathing Cardio: Other: Regular rate, regular rhythm, 2+ bilateral radial and pedal pulses, no murmur, no JVD GI: Other: Soft, nontender, obese, normoactive bowel sounds Skin: Other: Generalized pallor, non jaundice Neuro: Other: Alert oriented, speech is clear, no facial asymmetry, no localizing neurologic deficits noted during the course of conversation Extrem: Other: 1 to 2+ pitting edema bilateral lower ex tremities, moves all extremities equally Psych: Other: Appropriate mood and affect, judgment and insight intact, pleasant and cooperative Objective Data Vital Signs Vital Signs: Vital Signs - 24 hr 04/05/25 09:12 04/05/25 09:37 04/05/25 10:10 Temperature 97.6 F 98.2 F Pulse Rate 66 67 Respiratory Rate 20 16 Blood Pressure 115/65 111/55 L Pulse Oximetry 94 95 88 L Oxygen Delivery Room Air Oxygen Flow Rate 04/05/25 10:31 04/05/25 10:47 04/05/25 14:14 Temperature 98.1 F 98.3 F Pulse Rate 64 62 Respiratory Rate 21 H 18 Blood Pressure 117/84 115/70 Pulse Oximetry 100 98 97 Oxygen Delivery Nasal Cannula Oxygen Flow Rate 3 04/05/25 18:49 04/05/25 20:00 04/05/25 21:13 Temperature 98.2 F Pulse Rate 66 66 Respiratory Rate 18 Blood Pressure 103/54 L Pulse Oximetry 97 99 Oxygen Delivery Nasal Cannula Oxygen Flow Rate 2 04/05/25 23:08 04/06/25 00:00 04/06/25 04:00 Temperature Pulse Rate 108 H 63 Respiratory Rate Blood Pressure Pulse Oximetry 98 Oxygen Delivery Nasal Cannula Oxygen Flow Rate 2 04/06/25 05:21 Temperature 97.9 F Pulse Rate 105 H Respiratory Rate 20 Blood Pressure 117/70 Pulse Oximetry 94 Oxygen Delivery Oxygen Flow Rate Intake/Output Intake/Output: Intake & Output 04/03/25 04/04/25 04/05/25 04/06/25 23:59 23:59 23:59 23:59 Intake Total 290 350 Output Total 400 600 Balance -110 -250 Meds/Results Medications: Active Medications Generic Name Dose Route Start Last Admin Trade Name Freq PRN Reason Stop Dose Admin Dextrose 12.5 gm 04/05/25 13:26 Dextrose 50% 25 Gm/50 Ml Syringe IV PUSH PRN PRN Hypoglycemia Protocol Furosemide 40 mg 04/05/25 17:00 04/05/25 17:54 Furosemide Inj 40 Mg/4 Ml Vial IV PUSH 40 mg BID KERLINE Administration Glucagon 1 mg 04/05/25 13:26 Glucagon For Inj 1 Mg Vial IM PRN PRN Hypoglycemia Protocol Glucose 15 gm 04/05/25 13:26 Glucose Oral Gel 15 Gm Of Glucse In 37.5 Gm Tube PO PRN PRN Hypoglycemia Protocol Dextrose 1,000 mls @ 100 mls/hr 04/05/25 13:26 Dextrose 5% 1,000 Ml IVPB PRN PRN Hypoglycemia Protocol Potassium Chloride 40 meq/ 520 mls @ 130 mls/hr 04/06/25 07:45 Sodium Chloride IVPB 04/06/25 11:44 ONCE ONE Insulin Aspart 2 - 5 units 04/05/25 17:00 04/05/25 17:54 Insulin Aspart (*Bkc) 100 Units/Ml SUB-Q Not Given TIDWM KERLINE Protocol Radiology Results: ITS Impressions Chest X-Ray 04/05/25 09:54 Impression: Minimal right pleural effusion. Stable cardiomegaly, with pacemaker device. Labs Labs: Laboratory Results - last 24 hr 04/05/25 04/05/25 04/05/25 09:35 09:35 10:51 WBC 9.6 RBC 3.68 L Hgb 8.7 L Hct 30.3 L MCV 82.3 MCH 23.6 L MCHC 28.7 L RDW 17.1 H Plt Count 203 MPV 10.0 Immature Gran % (Auto) 0.3 Neut % (Auto) 81.4 H Lymph % (Auto) 8.8 L Milam % (Auto) 7.3 Eos % (Auto) 1.7 Baso % (Auto) 0.5 Lymph # (Auto) 0.84 L Mil[place] # (Auto) 0.7 H Eos # (Auto) 0.2 Baso # (Auto) 0.1 Abs Immat Gran (auto) 0.03 Absolute Neuts (auto) 7.8 H Absolute Nucleated RBC 0.000 Band Neutrophils % Not Reportable Nucleated RBC % 0.0 Platelet Estimate Adequate Hypochromasia 1+ Anisocytosis 1+ Schistocytes None seen PT 21.6 H INR 1.9 APTT 34.1 D-Dimer 0.53 H Sodium 137 Potassium 2.9 L Chloride 97 L Carbon Dioxide 34 H Anion Gap 6 BUN 17 Creatinine 0.99 Estim Creat Clear Calc Not Reportable Estimated GFR 54 L Glucose 120 H POC Capillary Glucose Calcium 8.6 Magnesium 1.6 Cancelled Total Bilirubin 0.9 AST 30 ALT 21 Alkaline Phosphatase 85 Troponin I < 0.012 NT-Pro-B Natriuret Pep 4090 H Total Protein 7.0 Albumin 3.7 Lipase 51 Influenza A (RT-PCR) Negative Influenza B (RT-PCR) Negative RSV (RT-PCR) Negative SARS-CoV-2 RNA (RT-PCR) Negative 04/05/25 04/05/25 04/05/25 12:24 16:59 20:05 WBC RBC Hgb Hct MCV MCH MCHC RDW Plt Count MPV Immature Gran % (Auto) Neut % (Auto) Lymph % (Auto) Milam % (Auto) Eos % (Auto) Baso % (Auto) Lymph # (Auto) Milam # (Auto) Eos # (Auto) Baso # (Auto) Abs Immat Gran (auto) Absolute Neuts (auto) Absolute Nucleated RBC Band Neutrophils % Nucleated RBC % Platelet Estimate Hypochromasia Anisocytosis Schistocytes PT INR APTT D-Dimer Sodium Potassium Chloride Carbon Dioxide Anion Gap BUN Creatinine Estim Creat Clear Calc Estimated GFR Glucose POC Capillary Glucose 111 H 123 H Calcium Magnesium Total Bilirubin AST ALT Alkaline Phosphatase Troponin I < 0.012 NT-Pro-B Natriuret Pep Total Protein Albumin Lipase Influenza A (RT-PCR) Influenza B (RT-PCR) RSV (RT-PCR) SARS-CoV-2 RNA (RT-PCR) 04/06/25 05:44 WBC RBC Hgb Hct MCV MCH MCHC RDW Plt Count MPV Immature Gran % (Auto) Neut % (Auto) Lymph % (Auto) Milam % (Auto) Eos % (Auto) Baso % (Auto) Lymph # (Auto) Milam # (Auto) Eos # (Auto) Baso # (Auto) Abs Immat Gran (auto) Absolute Neuts (auto) Absolute Nucleated RBC Band Neutrophils % Nucleated RBC % Platelet Estimate Hypochromasia Anisocytosis Schistocytes PT INR APTT D-Dimer Sodium 136 L Potassium 2.9 L Chloride 96 L Carbon Dioxide 32 H Anion Gap 8 BUN 13 Creatinine 0.80 Estim Creat Clear Calc 60 Estimated GFR > 60 Glucose 108 POC Capillary Glucose Calcium 8.3 L Magnesium 2.0 Total Bilirubin AST ALT Alkaline Phosphatase Troponin I NT-Pro-B Natriuret Pep Total Protein Albumin Lipase Influenza A (RT-PCR) Influenza B (RT-PCR) RSV (RT-PCR) SARS-CoV-2 RNA (RT-PCR) Quality VTE Prophylaxis VTE prophylaxis: pharmacologic ordered (Continue home Xarelto.)
[2025-04-06] MEDS: POTASSIUM CHLORIDE INJ 40 MEQ in SODIUM CHLORIDE 0.9% IV 500 ML 130 MEQ IVPB (08:23)
[2025-04-06] MEDS: FUROSEMIDE INJ 40 MG/4 ML VIAL IV PUSH ×2 (09:05→17:30)
[2025-04-06 12:37] LABS: Glucose Point of Care 103 mg/dl (65-105)
[2025-04-06] MEDS: METOPROLOL TARTRATE 50 MG TAB PO (12:47)
[2025-04-06] MEDS: GABAPENTIN 300 MG CAPSULE 600 MG PO ×2 (12:47→17:29)
[2025-04-06] MEDS: PRAMIPEXOLE 1 MG TABLET PO ×2 (12:47→17:29)
[2025-04-06] MEDS: RIVAROXABAN 20 MG TABLET PO (17:29)
[2025-04-06] MEDS: ACETAMINOPHEN 325 MG TABLET 650 MG PO (17:29)
[2025-04-06 17:57] LABS: Glucose Point of Care 100 mg/dl (65-105)
[2025-04-06] MEDS: PANTOPRAZOLE 40 MG TABLET PO (21:44)
[2025-04-06 23:17] LABS: Glucose Point of Care 127 mg/dl (65-105)
[2025-04-07] VITALS (10 sets, daily range): BP systolic 91–99; BP diastolic 60–68; PULSE 75–109; RESP 16–20; TEMP 36.3–36.6; O2SAT 95–98
[2025-04-07] MEDS: LEVOTHYROXINE SODIUM 125 MCG TABLET BY MOUTH (06:15)
[2025-04-07] MEDS: ACETAMINOPHEN 325 MG TABLET 650 MG PO ×3 (06:15→17:50)
--- NOTE | 2025-04-07 07:16 | PM.IMPN ---
Progress Note: A&P Assessment and Plan (1) Acute exacerbation of chronic heart failure: Code(s): I50.9 - Heart failure, unspecified Status: Acute Assessment and Plan: Acute exacerbation of chronic diastolic heart failure. Received 40 mg IV Lasix in the ER. Will hold home Bumex. Will continue Lasix 40 mg IV b.i.d.. Will monitor strict I&O's and daily weights. Will monitor electrolyte panel with repeat in a.m.. Physical exam remains unremarkable, some minor lower extremity swelling but no pitting edema. Patient states that the swelling is her baseline Pending PT/OT eval (2) Acute hypokalemia: Code(s): E87.6 - Hypokalemia Status: Acute Assessment and Plan: Patient received 40 mEq potassium chloride in the ER. Will repeat electrolyte panel in a.m. and replace as appropriate. Will monitor her rhythm on telemetry. 04/07: Potassium 3.1, will continue replacing as needed (3) Hypomagnesemia: Code(s): E83.42 - Hypomagnesemia Status: Acute Assessment and Plan: The patient is borderline low magnesium. Received 2 g magnesium sulfate rider in ER. Will repeat magnesium level in a.m.. Will monitor heart rhythm on telemetry. (4) Chronic anemia: Code(s): D64.9 - Anemia, unspecified Status: Acute Assessment and Plan: Hemoglobin is slightly down from baseline. Possibly due to dilution from CHF and increased intravascular volume. No acute signs of bleeding. Patient does have history of iron deficiency anemia from chronic loss and is on Xarelto. Will repeat CBC in a.m. and monitor. (5) Elevated d-dimer: Code(s): R79.89 - Other specified abnormal findings of blood chemistry Status: Acute Assessment and Plan: Only minimally elevated and not likely be clinically significant given her chronic Xarelto use. 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 Will hold home metformin and will place on low-dose sliding scale insulin with Accu-Cheks a.c. HS and hypoglycemia protocol. (7) Gastro-esophageal reflux: Qualifiers: Esophagitis presence: esophagitis presence not specified Qualified Code(s): K21.9 - Gastro-esophageal reflux disease without esophagitis Code(s): K21.9 - Gastro-esophageal reflux disease without esophagitis Status: Acute Assessment and Plan: Continue home PPI. (8) CARLOS (obstructive sleep apnea): Code(s): G47.33 - Obstructive sleep apnea (adult) (pediatric) Status: Acute Assessment and Plan: Patient is intolerant to CPAP and is not willing to try CPAP. She understands that CPAP may help reduce the strain on her heart but she cannot tolerate it due to dry mouth. Plan Patient has been admitted as observation status. Subjective Date/time seen: 04/07/25 07:16 Interval history: 79-year-old female with pmhx of sarcoidosis, HTN, diastolic CHF, pulmonary HTN, paroxysmal afib, T2DM, hypothyroidism and GERD who presented to the ER with chest pain, shortness of breath with exertion and nonproductive cough. 04/07/2025 Patient sitting comfortably in bed at time of examination. Denies any chest pain, shortness a breath, nausea/vomiting, or abdominal pain at this time. Physical exam also is unremarkable, some slight lower extremity swelling but no pitting edema. PT/OT eval is pending at this time, likely discharge tomorrow pending possible SNF placement Review of Systems Review of Systems: 12 systems were reviewed with pertinent positives and negatives per HPI. Except as documented in the HPI, all other systems were reviewed and are negative. Exam Narrative: Weight 112.5 kg BMI 43.9 Const: Other: Morbidly Obese, no acute distress, appears stated age HENMT: Other: Mucous membranes are dry, no oral pharyngeal erythema, crowded posterior oropharynx Eyes: Other: Bilateral lens implants noted, no scleral icterus, positive conjunctival pallor Neck: Other: No JVD, large neck circumference Resp: Other: Clear to auscultation bilaterally, no increased work of breathing Cardio: Other: Regular rate, regular rhythm, 2+ bilateral radial and pedal pulses, no murmur, no JVD GI: Other: Soft, nontender, obese, normoactive bowel sounds Skin: Other: Generalized pallor, non jaundice Neuro: Other: Alert oriented, speech is clear, no facial asymmetry, no localizing neurologic deficits noted during the course of conversation Extrem: Other: 1 to 2+ pitting edema bilateral lower extremities, moves all extremities equally Psych: Other: Appropriate mood and affect, judgment and insight intact, pleasant and cooperative Objective Data Vital Signs Vital Signs: Vital Signs - 24 hr 04/06/25 08:00 04/06/25 08:00 04/06/25 12:00 Temperature Pulse Rate 105 H 100 Respiratory Rate Blood Pressure Pulse Oximetry 98 Oxygen Delivery Nasal Cannula Oxygen Flow Rate 2 Fraction of Inspired Oxygen 98 04/06/25 14:00 04/06/25 16:00 04/06/25 20:00 Temperature 96.2 F L Pulse Rate 102 H 112 H Respiratory Rate 20 Blood Pressure 98/71 L Pulse Oximetry 97 97 Oxygen Delivery Nasal Cannula Oxygen Flow Rate 2 Fraction of Inspired Oxygen 04/06/25 20:00 04/06/25 21:21 04/06/25 21:40 Temperature 97.8 F Pulse Rate 100 106 H Respiratory Rate 20 Blood Pressure 82/56 L 100/68 Pulse Oximetry 97 Oxygen Delivery Oxygen Flow Rate Fraction of Inspired Oxygen 04/06/25 23:41 04/07/25 00:00 04/07/25 04:00 Temperature Pulse Rate 93 92 Respiratory Rate Blood Pressure 100/66 Pulse Oximetry Oxygen Delivery Oxygen Flow Rate Fraction of Inspired Oxygen 04/07/25 05:18 Temperature 97.3 F L Pulse Rate 106 H Respiratory Rate 16 Blood Pressure 99/60 L Pulse Oximetry 97 Oxygen Delivery Oxygen Flow Rate Fraction of Inspired Oxygen Intake/Output Intake/Output: Intake & Output 04/04/25 04/05/25 04/06/25 04/07/25 23:59 23:59 23:59 23:59 Intake Total 290 1090 400 Output Total 400 600 400 Balance -110 490 0 Meds/Results Medications: Active Medications Generic Name Dose Route Start Last Admin Trade Name Freq PRN Reason Stop Dose Admin Acetaminophen 650 mg 04/06/25 18:00 04/07/25 06:15 Acetaminophen 325 Mg Tablet PO 650 mg Q6HR KERLINE Administration Alprazolam 0.25 mg 04/06/25 12:00 Alprazolam (*Crx) 0.25 Mg Tablet PO DAILY PRN Anxiety Dextrose 12.5 gm 04/05/25 13:26 Dextrose 50% 25 Gm/50 Ml Syringe IV PUSH PRN PRN Hypoglycemia Protocol Fluoxetine HCl 40 mg 04/07/25 09:00 Fluoxetine Hcl 20 Mg Capsule PO DAILY KERLINE Furosemide 40 mg 04/05/25 17:00 04/06/25 17:30 Furosemide Inj 40 Mg/4 Ml Vial IV PUSH 40 mg BID KERLINE Administration Gabapentin 600 mg 04/06/25 13:00 04/06/25 17:29 Gabapentin 300 Mg Capsule PO 600 mg TID KERLINE Administration Glucagon 1 mg 04/05/25 13:26 Glucagon For Inj 1 Mg Vial IM PRN PRN Hypoglycemia Protocol Glucose 15 gm 04/05/25 13:26 Glucose Oral Gel 15 Gm Of Glucse In 37.5 Gm Tube PO PRN PRN Hypoglycemia Protocol Dextrose 1,000 mls @ 100 mls/hr 04/05/25 13:26 Dextrose 5% 1,000 Ml IVPB PRN PRN Hypoglycemia Protocol Insulin Aspart 2 - 5 units 04/05/25 17:00 04/06/25 17:30 Insulin Aspart (*Bkc) 100 Units/Ml SUB-Q Not Given TIDWM [facility] Protocol Levothyroxine Sodium 125 mcg 04/07/25 06:30 04/07/25 06:15 Levothyroxine Sodium 125 Mcg Tablet BY MOUTH 125 mcg DAILY@0630 KERLINE Administration Metoprolol Tartrate 50 mg 04/06/25 12:00 04/07/25 02:49 Metoprolol Tartrate 50 Mg Tab PO Not Given Q12HR KERLINE Pantoprazole Sodium 40 mg 04/06/25 21:00 04/06/25 21:44 Pantoprazole 40 Mg Tablet PO 40 mg Q12HR KERLINE Administration Pramipexole Dihydrochloride 1 mg 04/06/25 13:00 04/06/25 17:29 Pramipexole 1 Mg Tablet PO 1 mg TID KERLINE Administration Rivaroxaban 20 mg 04/06/25 18:00 04/06/25 17:29 Rivaroxaban 20 Mg Tablet PO 20 mg EVENING KERLINE Administration Rosuvastatin Calcium 10 mg 04/07/25 09:00 Rosuvastatin 10 Mg Tablet PO DAILY [facility] Tramadol HCl 50 mg 04/06/25 12:00 Tramadol Hcl (*Crx) 50 Mg Tablet PO QHS PRN pain Radiology Results: ITS Impressions Chest X-Ray 04/05/25 09:54 Impression: Minimal right pleural effusion. Stable cardiomegaly, with pacemaker device. Labs Labs: Laboratory Results - last 24 hr 0604/06/25 04/06/25 05:44 12:02 17:40 WBC 8.1 RBC 3.43 L Hgb 8.1 L Hct 28.4 L MCV 82.8 MCH 23.6 L MCHC 28.5 L RDW 17.2 H Plt Count 160 MPV 10.7 H POC Capillary Glucose 103 100 04/06/25 20:09 WBC RBC Hgb Hct MCV MCH MCHC RDW Plt Count MPV POC Capillary Glucose 127 H Quality VTE Prophylaxis VTE prophylaxis: pharmacologic ordered (Continue home Xarelto.)
[2025-04-07 07:36] LABS: Basophils Absolute Auto 0.1 K/mm3 (0.0-0.1); Basophils Percent Auto 0.9 % (0.2-1.2); Eosinophils Absolute Auto 0.2 K/mm3 (0-0.3); Eosinophils Percent Auto 3.4 % (0-4.4); Hematocrit 30.2 % (37.0-47.0); Hemoglobin 8.6 g/dL (12.0-15.0); Immature Granulocyte Absolute 0.02 K/mm3 (0.00-0.031); Immature Granulocyte Percent A 0.3 % (0-0.5); Lymphocytes Absolute Auto 1.22 K/mm3 (0.9-3.2); Lymphocytes Percent Auto 17.5 % (18.3-44.2); Mean Corpuscular HGB Conc 28.5 g/dl (32-36); Mean Corpuscular Hemoglobin 23.7 pg (26-34); Mean Corpuscular Volume 83.2 fl (80-100); Mean Platelet Volume 10.1 fl (7.4-10.4); Monocytes Absolute Auto 0.6 K/mm3 (0.1-0.6); Monocytes Percent Auto 7.9 % (2.6-8.5); Neutrophils Absolute Auto 4.9 K/mm3 (1.3-6.7); Platelet Count Result 190 k/mm3 (150-375); Red Blood Count 3.63 M/mm3 (4.2-5.4); Red Cell Distribution Width 17.3 % (11.5-14.5)
[2025-04-07 07:50] LABS: Alanine Aminotransferase 15 U/L (6-35); Albumin Level 3.2 g/dL (3.5-5.1); Alkaline Phosphatase 83 U/L (38-126); Anion Gap 5 mmol/L (4-12); Aspartate Amino Transferase 26 U/L (14-36); Bilirubin,Total 0.7 mg/dL (0.2-1.3); Blood Urea Nitrogen 14 mg/dL (7-17); Calcium 8.4 mg/dL (8.4-10.2); Carbon Dioxide 31 mmol/L (22-30); Chloride 100 mmol/L (98-107); Estimated CRCL calculation 60 ml/min; Estimated Glomerular Filt Rate > 60; Glucose 112 mg/dL (65-110); Potassium 3.1 mmol/L (3.4-5.0); Sodium 136 mmol/L (137-145); Total Protein 6.4 g/dL (6.3-8.2)
[2025-04-07 08:02] LABS: Glucose Point of Care 103 mg/dl (65-105)
[2025-04-07 08:25] LABS: Platelet Estimate Adequate (Adequate)
[2025-04-07 08:26] LABS: Anisocytosis 1+; Hypochromasia 1+; Schistocytes None Seen
[2025-04-07] MEDS: FLUoxetine HCL 20 MG CAPSULE 40 MG PO (08:54)
[2025-04-07] MEDS: FUROSEMIDE INJ 40 MG/4 ML VIAL IV PUSH ×2 (08:54→17:50)
[2025-04-07] MEDS: PANTOPRAZOLE 40 MG TABLET PO ×2 (08:55→21:22)
[2025-04-07] MEDS: GABAPENTIN 300 MG CAPSULE 600 MG PO ×3 (08:55→17:49)
[2025-04-07] MEDS: ROSUVASTATIN 10 MG TABLET PO (08:55)
[2025-04-07] MEDS: METOPROLOL TARTRATE 50 MG TAB PO ×2 (08:55→21:22)
[2025-04-07] MEDS: PRAMIPEXOLE 1 MG TABLET PO ×3 (08:55→17:49)
[2025-04-07] MEDS: POTASSIUM CHLORIDE 20 MEQ ER TABLET 40 MEQ PO (08:55)
[2025-04-07 12:08] LABS: Glucose Point of Care 113 mg/dl (65-105)
[2025-04-07 16:49] LABS: Glucose Point of Care 96 mg/dl (65-105)
[2025-04-07] MEDS: RIVAROXABAN 20 MG TABLET PO (17:50)
[2025-04-07 21:51] LABS: Glucose Point of Care 107 mg/dl (65-105)
[2025-04-08] VITALS (10 sets, daily range): BP systolic 80–107; BP diastolic 63–66; PULSE 85–108; RESP 16–20; TEMP 36.2–36.6; O2SAT 91–97
[2025-04-08] MEDS: ACETAMINOPHEN 325 MG TABLET 650 MG PO ×2 (06:25→12:38)
[2025-04-08] MEDS: LEVOTHYROXINE SODIUM 125 MCG TABLET BY MOUTH (06:25)
[2025-04-08 06:40] LABS: Basophils Absolute Auto 0.1 K/mm3 (0.0-0.1); Basophils Percent Auto 0.9 % (0.2-1.2); Eosinophils Absolute Auto 0.3 K/mm3 (0-0.3); Eosinophils Percent Auto 4.2 % (0-4.4); Hematocrit 31.2 % (37.0-47.0); Hemoglobin 8.5 g/dL (12.0-15.0); Immature Granulocyte Absolute 0.03 K/mm3 (0.00-0.031); Immature Granulocyte Percent A 0.4 % (0-0.5); Lymphocytes Absolute Auto 1.51 K/mm3 (0.9-3.2); Lymphocytes Percent Auto 18.8 % (18.3-44.2); Mean Corpuscular HGB Conc 27.2 g/dl (32-36); Mean Corpuscular Hemoglobin 23.2 pg (26-34); Mean Platelet Volume 10.1 fl (7.4-10.4); Monocytes Absolute Auto 0.6 K/mm3 (0.1-0.6); Neutrophils Absolute Auto 5.4 K/mm3 (1.3-6.7); Neutrophils Percent Auto 67.7 % (45.5-73.1); Platelet Count Result 164 k/mm3 (150-375); Red Blood Count 3.67 M/mm3 (4.2-5.4); Red Cell Distribution Width 17.2 % (11.5-14.5)
[2025-04-08 07:02] LABS: Platelet Estimate Adequate (Adequate)
[2025-04-08 07:03] LABS: Anisocytosis 1+; Burr Cells 1+; Hypochromasia 1+; Ovalocytes 1+; Schistocytes None Seen
[2025-04-08 07:07] LABS: Alanine Aminotransferase 20 U/L (6-35); Albumin Level 3.2 g/dL (3.5-5.1); Alkaline Phosphatase 82 U/L (38-126); Anion Gap 6 mmol/L (4-12); Aspartate Amino Transferase 33 U/L (14-36); Bilirubin,Total 0.5 mg/dL (0.2-1.3); Blood Urea Nitrogen 16 mg/dL (7-17); Calcium 8.6 mg/dL (8.4-10.2); Carbon Dioxide 33 mmol/L (22-30); Chloride 98 mmol/L (98-107); Estimated CRCL calculation 54 ml/min; Estimated Glomerular Filt Rate 60; Glucose 104 mg/dL (65-110); Potassium 3.4 mmol/L (3.4-5.0); Sodium 137 mmol/L (137-145); Total Protein 6.2 g/dL (6.3-8.2)
[2025-04-08 07:54] LABS: Glucose Point of Care 102 mg/dl (65-105)
[2025-04-08] MEDS: PRAMIPEXOLE 1 MG TABLET PO ×2 (09:30→12:38)
[2025-04-08] MEDS: PANTOPRAZOLE 40 MG TABLET PO (09:30)
[2025-04-08] MEDS: METOPROLOL TARTRATE 50 MG TAB PO (09:30)
[2025-04-08] MEDS: FLUoxetine HCL 20 MG CAPSULE 40 MG PO (09:30)
[2025-04-08] MEDS: GABAPENTIN 300 MG CAPSULE 600 MG PO ×2 (09:30→12:38)
[2025-04-08] MEDS: ROSUVASTATIN 10 MG TABLET PO (09:30)
[2025-04-08] MEDS: FUROSEMIDE INJ 40 MG/4 ML VIAL IV PUSH (09:30)
[2025-04-08 11:35] LABS: Glucose Point of Care 133 mg/dl (65-105)
--- NOTE | 2025-04-08 13:03 | PM.DS ---
DS: Admitting Diagnosis Discharge Date 04/08/2025 Admitting Diagnosis Acute exacerbation of chronic heart failure Acute hypokalemia DS: Discharge Diagnosis Discharge Diagnosis (1) Acute exacerbation of chronic heart failure: Code(s): I50.9 - Heart failure, unspecified Status: Acute (2) Acute hypokalemia: Code(s): E87.6 - Hypokalemia Status: Acute (3) Hypomagnesemia: Code(s): E83.42 - Hypomagnesemia Status: Acute (4) Chronic anemia: Code(s): D64.9 - Anemia, unspecified Status: Acute (5) Elevated d-dimer: Code(s): R79.89 - Other specified abnormal findings of blood chemistry Status: Acute (6) Type 2 diabetes mellitus: Qualifiers: Diabetes mellitus exterminator insulin use: without nursing home use Diabetes mellitus complication status: without complication Qualified Code(s): E11.9 - Type 2 diabetes mellitus without complications Code(s): E11.9 - Type 2 diabetes mellitus without complications Status: Acute (7) Gastro-esophageal reflux: Qualifiers: Esophagitis presence: esophagitis presence not specified Qualified Code(s): K21.9 - Gastro-esophageal reflux disease without esophagitis Code(s): K21.9 - Gastro-esophageal reflux disease without esophagitis Status: Acute (8) CARLOS (obstructive sleep apnea): Code(s): G47.33 - Obstructive sleep apnea (adult) (pediatric) Status: Acute DS: Summary Hospital Course Reason for hospitalization: Chest pain, shortness a breath Hospital Course: 79-year-old female with past medical history of sarcoidosis, essential hypertension, diastolic CHF, pulmonary hypertension, paroxysmal atrial fibrillation, type 2 diabetes mellitus, hypothyroidism and GERD who presented to the ER with chest pain, shortness of breath with exertion and nonproductive cough. The patient reports that she has had shortness of breath for about the last 6 months. It is been slowly getting worse. She has also been having increased lower extremity edema for the last 2-3 months. She has been taking her Bumex as directed and her dose has not changed in the last 6 months or so. She denies any palpitations, fevers or chills. She reports that her shortness of breath usually gets better when she rests. She developed some chest pressure is on the right side and somewhat medial and it just makes it feel like she cannot catch her breath. Situation has been more complicated since she has moved into independent living facility at [facility]. She reports that she has been so short of breath she has not been able to ambulate to the dining room for the last 3 weeks or so. She reports that she had to move there because her was placed in Memory Care. She denies any diaphoresis or palpitations. She does have obstructive sleep apnea but is intolerant to CPAP. She reports that for the last couple of months she has bad and having difficulty with her blood pressure dropping when she gets up to ambulate. She states that her heart doctor put her on Jardiance to try to help with her cardiac function but she did not tolerate this as it made her mouth more dry. She reports that her mouth is so dry that she occasionally has difficulty swallowing her food and pills. She sees a certified surgical first assistant in [place] but she only sees him once a year. She has not talked to her certified surgical first assistant regarding her symptoms. She re developed new nonproductive cough over the last day or so. COVID flu and RSV PCR were negative in the ER. Patient was noted to be hypoxic in the ER with sats of 88% on room air. She denies any history of oxygen use at home. Patient was admitted for CHF exacerbation. Lasix were continued image was. Patient's potassium was found to be low and was repleted. Potassium gradually increase the hospitalization and on 04/08 her potassium was 3.4. CMP was grossly unremarkable. CBC showed some slight anemia with hemoglobin at 8.5 but was otherwise unremarkable. Patient's breathing steadily improved throughout her hospitalization. Home O2 evaluations were ordered the respiratory and they determined that the patient did not need any supplemental O2 upon discharge. Patient's physical exam steadily improved throughout hospitalization as well and on 04/08 patient felt stable enough to be discharged and upon clinical examination, she did not need any further hospitalization given electrolyte abnormality correction and improvement of fluid status and physical exam findings. Patient to be discharged home at this point. Status at Discharge Functional status at discharge: independent ambulation Overall status at discharge: patient is back to baseline Time Spent with Patient Time attestation: Total time spent providing and/or coordinating discharge services: 40 Exam Narrative: Weight 112.5 kg BMI 43.9 Const: Other: Morbidly Obese, no acute distress, appears stated age HENMT: Other: Mucous membranes are dry, no oral pharyngeal erythema, crowded posterior oropharynx Eyes: Other: Bilateral lens implants noted, no scleral icterus, positive conjunctival pallor Neck: Other: No JVD, large neck circumference Resp: Other: Clear to auscultation bilaterally, no increased work of breathing Cardio: Other: Regular rate, regular rhythm, 2+ bilateral radial and pedal pulses, no murmur, no JVD GI: Other: Soft, nontender, obese, normoactive bowel sounds Skin: Other: Generalized pallor, non jaundice Neuro: Other: Alert oriented, speech is clear, no facial asymmetry, no localizing neurologic deficits noted during the course of conversation Extrem: Other: Nonpitting edema to bilateral lower extremities, patient states chronic, moves all extremities equally Psych: Other: Appropriate mood and affect, judgment and insight intact, pleasant and cooperative DS: Data Data Completed and Pending Labs on day of discharge: Labs from last 24 hours 04/08/25 04/08/25 04/08/25 11:22 07:33 06:06 WBC 8.0 RBC 3.67 L Hgb 8.5 L Hct 31.2 L MCV 85.0 MCH 23.2 L MCHC 27.2 L RDW 17.2 H Plt Count 164 MPV 10.1 Immature Gran % (Auto) 0.4 Neut % (Auto) 67.7 Lymph % (Auto) 18.8 [place] % (Auto) 8.0 Eos % (Auto) 4.2 Baso % (Auto) 0.9 Lymph # (Auto) 1.51 [place] # (Auto) 0.6 Eos # (Auto) 0.3 Baso # (Auto) 0.1 Abs Immat Gran (auto) 0.03 Absolute Neuts (auto) 5.4 Absolute Nucleated RBC 0.000 Band Neutrophils % Not Reportable Nucleated RBC % 0.0 Platelet Estimate Adequate Hypochromasia 1+ Anisocytosis 1+ Ovalocytes 1+ [place] Cells 1+ Schistocytes None seen Sodium 137 Potassium 3.4 Chloride 98 Carbon Dioxide 33 H Anion Gap 6 BUN 16 Creatinine 0.91 Estim Creat Clear Calc 54 Estimated GFR 60 Glucose 104 POC Capillary Glucose 133 H 102 Calcium 8.6 Total Bilirubin 0.5 AST 33 ALT 20 Alkaline Phosphatase 82 Total Protein 6.2 L Albumin 3.2 L 04/07/25 04/07/25 21:24 16:44 WBC RBC Hgb Hct MCV MCH MCHC RDW Plt Count MPV Immature Gran % (Auto) Neut % (Auto) Lymph % (Auto) [place] % (Auto) Eos % (Auto) Baso % (Auto) Lymph # (Auto) [place] # (Auto) Eos # (Auto) Baso # (Auto) Abs Immat Gran (auto) Absolute Neuts (auto) Absolute Nucleated RBC Band Neutrophils % Nucleated RBC % Platelet Estimate Hypochromasia Anisocytosis Ovalocytes [place] Cells Schistocytes Sodium Potassium Chloride Carbon Dioxide Anion Gap BUN Creatinine Estim Creat Clear Calc Estimated GFR Glucose POC Capillary Glucose 107 H 96 Calcium Total Bilirubin AST ALT Alkaline Phosphatase Total Protein Albumin Discharge Plan Discharge Attending physician on discharge: Pedro Fitzpatrick Consulting providers: Tyler Lou Discharging Clinician: Tyler Lou Anticipated Discharge Date/Time: 04/08/25 09:39 Patient Disposition: Home Activity: as tolerated Diet: as tolerated Patient Instructions: Antibiotic Form Patient Language: Khmer Stand Alone Forms: General Discharge Information Follow-up/Referrals: Cuong,Roger Lyles DO [Primary Care Provider] - Discharge Medications: Continued PreserVision AREDS [id number] capsule 1 cap PO BID bumetanide 2 mg tablet 2 mg PO BID Xarelto 20 mg tablet 20 mg PO DAILY Rx Instructions: take each evening metoprolol tartrate 50 mg tablet 50 mg PO Q12H alprazolam [Xanax] 0.25 mg tablet 0.25 mg PO DAILY PRN (Reason: Anxiety) acetaminophen 650 mg tablet extended release 1,300 mg PO Q12H tramadol 50 mg tablet 50 mg PO QHS PRN (Reason: pain) Qty: 30 1RF gabapentin 600 mg tablet 600 mg PO TID Qty: 270 1RF metformin 500 mg tablet 500 mg PO BID Qty: 180 3RF rosuvastatin [Crestor] 10 mg tablet 10 mg PO DAILY Qty: 90 1RF levothyroxine 125 mcg tablet See Rx Instructions .ROUTE .COMPLEX Qty: 90 1RF Dose Instruction: TAKE 1 TABLET BY MOUTH DAILY Rx Instructions: TAKE 1 TABLET BY MOUTH DAILY fluoxetine [Prozac] 20 mg capsule 40 mg PO DAILY Qty: 180 1RF pramipexole 1 mg tablet 1 mg PO TID Qty: 270 1RF omeprazole 20 mg capsule,delayed release(DR/EC) 20 mg PO BID Qty: 180 3RF Date of admission: 04/06/25 08:45 Primary Care Provider: CuongRoger Admitting Provider: Norberto Lindo Attending physician on admission: Norberto Lindo Condition: Stable Quality VTE Prophylaxis VTE prophylaxis: pharmacologic ordered (Continue home Xarelto.)
== END 2025-04-08 15:00 | disposition home or self-care (01) | DRG 291 ==
LOC: ANHED 10:22 → ANH3MEDSUR 12:36
PROVIDERS: Family Medicine; Internal Medicine; Admitting Provider Internal Medicine; Emergency Provider Physician Assistant; PCP Internal Medicine; Visit Provider Physician Assistant
DX: I11.0 Hypertensive heart disease with heart failure (principal); I50.33 Acute on chronic diastolic (congestive) heart failure; I27.20 Pulmonary hypertension, unspecified; E87.6 Hypokalemia; I48.0 Paroxysmal atrial fibrillation; G47.33 Obstructive sleep apnea (adult) (pediatric); E11.9 Type 2 diabetes mellitus without complications; K21.9 Gastro-esophageal reflux disease without esophagitis; E03.9 Hypothyroidism, unspecified; E83.42 Hypomagnesemia; D64.9 Anemia, unspecified; D50.0 Iron deficiency anemia secondary to blood loss (chronic); Z66 Do not resuscitate; R79.89 Other specified abnormal findings of blood chemistry; Z79.01 Long term (current) use of anticoagulants; Z79.84 Long term (current) use of oral hypoglycemic drugs; Z79.899 Other long term (current) drug therapy; Z86.2 Personal history of diseases of the blood and blood-forming organs and certain disorders involving the immune mechanism; Z88.2 Allergy status to sulfonamides
CPT/HCPCS: 36415; 71046; 80048; 80053; 82948; 83690; 83735; 83880; 84484; 85025; 85027; 85380; 85610; 85730; 87637; 93005; 94618; 96365; 96366; 96375; 97161; 97165; 99291; A9270; C8929; G0378; J1938; J3475; J3480; J7040; Q9957

== ENCOUNTER 2025-05-02 16:26 | Emergency (ER) | payer MEDICARE, OTHER, SELFPAY ==
[2025-05-02 16:38] VITALS: BP 127/71; PULSE 88; RESP 16; TEMP 36.9; O2SAT 94
--- NOTE | 2025-05-02 17:21 | ED.EXTPRO ---
HPI - Extremity Problem General Chief complaint: Extremity Problem,Nontraumatic Stated complaint: LEGS SWELLING/OOZING Time Seen by Provider: 05/02/25 16:50 Source: patient and RN notes reviewed Mode of arrival: ambulatory Limitations: no limitations History of Present Illness HPI Narrative: 79-year-old female presents Express [facility] complaining of leg swelling, oozing legs, and redness to her lower extremities. Patient has a history congestive heart failure. Patient was recently in the hospital beginning the month required IV diuretics for CHF exacerbation. Patient was discharged back on her normal Bumex. Patient says she does not have a follow-up with Cardiology to mid May. Patient says since then her leg swelling has gotten worse. Patient denies any worsening shortness of breath than normal. Patient denies any chest pain, dizziness, lightheadedness, loss of consciousness, orthopnea, or any other symptoms. Patient is also notice some areas redness on her bilateral lower extremities. She denies any pain, pruritus, or denies her legs being hot to touch. Patient states she has not been following a sodium restriction diet. Related Data Home Medications ?Medication ?Instructions ?Recorded ?Confirmed ?Last Taken ?Type metoprolol tartrate 50 mg tablet 50 mg PO Q12H 10/14/19 04/05/25 04/04/25 History rivaroxaban 20 mg tablet (Xarelto) 20 mg PO DAILY 10/14/19 04/05/25 04/04/25 History vitamins A,C,G-ofyp-ttjhlo 4,296 1 cap PO BID 11/08/20 04/05/25 04/04/25 History mcg-226 mg-90 mg capsule (PreserVision AREDS) alprazolam 0.25 mg tablet (Xanax) 0.25 mg PO DAILY PRN Anxiety 02/27/22 04/05/25 07/20/24 History acetaminophen 650 mg 1,300 mg PO Q12H pain 05/05/22 04/05/25 04/04/25 History tablet,extended release bumetanide 2 mg tablet 2 mg PO BID 11/17/24 04/05/25 04/04/25 History Allergies Allergy/AdvReac Type Severity Reaction Status Date / Time Sulfa (Sulfonamide Allergy Intermediate Rash Verified 04/05/25 09:15 Antibiotics) Review of Systems Review of Systems: CONSTITUTIONAL: Denies fever, chills, or sweats. EYES: Denies visual changes, redness, or discharge. ENT: Denies rhinorrhea, congestion, sore throat, or otalgia. CARDIOVASCULAR: Denies chest pain, orthopnea, lightheadedness, dizziness, loss of conscious, palpitations,. Positive for edema RESPIRATORY: Denies cough or worsening shortness of breath. GASTROINTESTINAL: Denies abdominal pain, nausea, vomiting, or diarrhea. GENITOURINARY: Denies dysuria or hematuria. SKIN: Denies rash or itching. MUSCULOSKELETAL: Denies back pain, joint pain, or myalgia. NEUROLOGIC: Denies headache, numbness, or weakness. PSYCHIATRIC: Denies anxiety or depression. All other systems reviewed are negative, except as documented in HPI. [facility] Past Medical History Medical History Chronic anemia Pulmonary hypertension Diastolic heart failure Echocardiogram June 2024: Difficult study with LVH, EF of 50 55%, grade 1 diastolic dysfunction and moderate left atrial enlargement with mild pulmonary hypertension Other hyperlipidemia Restless leg syndrome History of sarcoidosis Hx of arteriovenous malformation (AVM) Iron deficiency anemia CARLOS (obstructive sleep apnea) Intolerant to CPAP Post-menopausal Paroxysmal atrial fibrillation Depression Colonoscopy planned Gastro-esophageal reflux Type 2 diabetes mellitus Hypothyroidism Essential hypertension Surgical History Surgical History Status post cataract extraction of both eyes with insertion of intraocular lens History of right shoulder replacement History of toe surgery History of arthroscopy of knee Family History Family History Mother Family history of lung cancer Family history of lung disease Father Family history of arthritis Family history of heart disease in male family member before age 55 Family history of cardiovascular disease Sibling Family history of malignant neoplasm of breast in first degree relative Carcinoma of colon Breast cancer Daughter Breast cancer Social History Social History Social History: Patient moved to [facility] (independent) halfway March 2025. She is a lifelong nonsmoker and denies any history of alcohol use. Her and her raised 1 son and 4 daughters. 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 Code status: DNR/DNI (per patient request) Healthcare power of attorney recruiter: Patricia (daughter) Smoking status: Never smoker Second hand tobacco smoke exposure: No Alcohol intake: never Substance use: never Substance use type: does not use Do You Feel Safe in your Home?: Yes Lack of Transportation: No Lack of Food: Never True Current Housing: I Have Housing Concerned About Future Housing: No Difficulty Paying Gas/Electric Bills: No Difficulty Paying for Meds: No Currently Unemployed: No Education: Bachelor's Degree Difficulty w/ Childcare or Family Care: No Living arrangements: shelter [facility] Occupation/Education: retired 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 There is no relevant family history pertinent to the patient complaint. Exam Narrative: GENERAL: This is a well-nourished, well-developed adult, in no apparent distress. They are non ill-appearing, nontoxic appearing. Patient uses a walker. HEAD: normocephalic, atraumatic. EYES: Sclera clear/white. Conjunctiva normal. Vision is grossly intact. Extraocular movements intact EARS: External ears normal, Hearing grossly intact. NOSE: External nose normal THROAT: Mucous membranes moist, NECK: Neck supple, CARDIOVASCULAR: Regular rate and rhythm without murmurs, gallops, or rubs. RESPIRATORY: Clear to auscultation. Breath sounds equal bilaterally. No wheezes, rales, or rhonchi. Respiratory rate normal, respiratory effort nonlabored, no respiratory distress SKIN: warm, Dry, intact with no suspicious lesions or rash, good texture and turgor. NEURO: awake, alert, and oriented to person, place and time. There were no obvious focal neurologic abnormalities. EXTREMITIES: Bilateral lower extremities below the knee are 3+ and pitting and weeping. Stasis dermatitis present. There are 2 small areas measuring 2 cm x 2 cm, 1 on each lower extremity that are rubor, weeping, cool to touch. There nontender, no induration, no area of fluctuance, no exudate. Discharge is clear and watery. BACK: Nontender without deformity. Course Course Emergency Course: Portions of this record may have been created with voice recognition software Level of Care: Express Care Visit Vital Signs Vital signs: Vital Signs Temperature 98.4 F 05/02/25 16:38 Pulse Rate 88 05/02/25 16:38 Respiratory Rate 16 05/02/25 16:38 Blood Pressure 127/71 05/02/25 16:38 Pulse Oximetry 94 05/02/25 16:38 Temperature 98.4 F 05/02/25 16:38 Pulse Rate 88 05/02/25 16:38 Respiratory Rate 16 05/02/25 16:38 Blood Pressure 127/71 05/02/25 16:38 Pulse Oximetry 94 05/02/25 16:38 Reviewed MDM - Extremity (Nontraumatic) MDM Narrative Medical decision making narrative: Likely leg swelling is worsening CHF symptoms. Patient is not short of breath or having any orthopnea. Offered ER transfer for further evaluation and management, and patient declined. Advised patient to call her team cdl driver's office 1st thing tomorrow to set up closer follow-up as she may need a change in her diuretics. Strict sodium restrictions were discussed with patient. Likely patient has acute stasis dermatitis with no evidence of infection. Will prescribe a triamcinolone cream to the affected areas. Strict ER precautions discussed. Discussed physical exam findings. Advised supportive measures and signs/symptoms to go to the ER. Pt is appropriate for outpt treatment and f/u. Differential Diagnosis Differential diagnosis: Likely cellulitis, lower extremity edema and other (CHF exacerbation, lymphedema, venous insufficiency, stasis dermatitis) Critical Care Time Critical Care Time Critical Care Time: No Discharge Plan Discharge Clinical Impression: Bilateral edema of lower extremity, Stasis dermatitis Patient Disposition: Home Condition: Stable Instructions: Heart Failure (ED), Leg Edema (ED), Low-Sodium Diet (ED) Additional Instructions: Use the triamcinolone cream as directed. Please only apply to the affected area on your lower legs. Please contact her team cdl driver and set up a closer follow-up in the 2-3 days about your leg swelling. Please follow low-sodium diet. Follow-up with PCP in 3-5 days. If your leg swelling worsens, you develop worsening shortness of breath, chest pain, or difficulty breathing please go to the ER immediately. Patient Language: Citizen Of [place] Prescriptions: New triamcinolone acetonide 0.1 % cream 1 applic topical BID 7 Days Qty: 15 0RF No Action PreserVision AREDS [id number] owrk-yh-erkc capsule 1 cap PO BID bumetanide 2 mg tablet 2 mg PO BID Xarelto 20 mg tablet 20 mg PO DAILY Rx Instructions: take each evening metoprolol tartrate 50 mg tablet 50 mg PO Q12H alprazolam [Xanax] 0.25 mg tablet 0.25 mg PO DAILY PRN (Reason: Anxiety) acetaminophen 650 mg tablet extended release 1,300 mg PO Q12H tramadol 50 mg tablet 50 mg PO QHS PRN (Reason: pain) Qty: 30 1RF gabapentin 600 mg tablet 600 mg PO TID Qty: 270 1RF metformin 500 mg tablet 500 mg PO BID Qty: 180 3RF rosuvastatin [Crestor] 10 mg tablet 10 mg PO DAILY Qty: 90 1RF levothyroxine 125 mcg tablet See Rx Instructions .ROUTE .COMPLEX Qty: 90 1RF Dose Instruction: TAKE 1 TABLET BY MOUTH DAILY Rx Instructions: TAKE 1 TABLET BY MOUTH DAILY fluoxetine [Prozac] 20 mg capsule 40 mg PO DAILY Qty: 180 1RF pramipexole 1 mg tablet 1 mg PO TID Qty: 270 1RF omeprazole 20 mg capsule,delayed release(DR/EC) 20 mg PO BID Qty: 180 3RF Follow-up/Referrals: Cuong,Roger Lyles DO [Primary Care Provider] - Time of Disposition: 17:09
== END 2025-05-02 17:17 | disposition home or self-care (01) ==
PROVIDERS: PCP Internal Medicine
DX: R60.0 Localized edema (principal); I87.2 Venous insufficiency (chronic) (peripheral); I11.0 Hypertensive heart disease with heart failure; I50.30 Unspecified diastolic (congestive) heart failure; I27.20 Pulmonary hypertension, unspecified; E78.49 Other hyperlipidemia; G25.81 Restless legs syndrome; G47.33 Obstructive sleep apnea (adult) (pediatric); Z91.198 Patient's noncompliance with other medical treatment and regimen for other reason; I48.0 Paroxysmal atrial fibrillation; K21.9 Gastro-esophageal reflux disease without esophagitis; E11.9 Type 2 diabetes mellitus without complications; Z79.84 Long term (current) use of oral hypoglycemic drugs; E03.9 Hypothyroidism, unspecified; Z96.1 Presence of intraocular lens; Z98.42 Cataract extraction status, left eye; Z98.41 Cataract extraction status, right eye; Z96.611 Presence of right artificial shoulder joint; Z66 Do not resuscitate; Z79.01 Long term (current) use of anticoagulants
CPT/HCPCS: 99213; G0463

== ENCOUNTER 2025-05-07 09:06 | Inpatient (IN) | payer MEDICARE, OTHER, SELFPAY ==
[2025-05-07] VITALS (10 sets, daily range): BP systolic 100–113; BP diastolic 48–86; PULSE 76–94; RESP 16–23; TEMP 36.3–36.9; O2SAT 91–100; BMI 41.3
--- NOTE | ~2025-05-07 | CT_ITS ---
EXAMINATION: CT diagnostic chest wo con DATE: 05/08/2025 19:33 INDICATION: abnormal chest xr TECHNIQUE: Computed tomography (CT) of the chest was performed with 100 mL Omnipaque-350 intravenous contrast. Automated exposure control and iterative reconstruction technique were employed. The dose-l ength product was 363.37 mGy-cm. COMPARISON: 07/23/2019; x-ray chest 05/08/2025. FINDINGS: CHEST: Thoracic aorta: Mild atherosclerotic calcification. Borderline ectatic ascending aorta measuring 3.9 cm. Lung parenchyma and airways: Patent airways. Scattered, diffusely distributed reticular and groundgla ss opacities. No definite honeycombing. No subpleural sparing. No significant bronchiectasis. Left up per lobe scar. Thoracic inlet, axillae and chest wall: Right chest pacer with intact leads. No thyroid or soft tissu e mass. No axillary lymphadenopathy. Mediastinum: Enlarged mediastinal lymph nodes. Dilated central pulmonary arteries as can be seen with pulmonary hypertension. Mildly patulous esophagus with fluid and debris. Heart and pericardium: Cardiomegaly. No pericardial effusion. Coronary artery calcifications: Mild. Pleura: No effusion or mass. Upper abdomen: Cholelithiasis. Thoracic bones: No acute osseous finding in the chest. IMPRESSION: No acute thoracic process detected. Borderline aortic ectasia. Interstitial changes in the lungs, indeterminate for UIP pattern. Mildly patulous esophagus with fluid/debris. Mediastinal lymphadenopathy. Reviewed, dictated and finalized at location K.
--- NOTE | ~2025-05-07 | XR_ITS ---
CHEST RADIOGRAPH, PA AND LATERAL CLINICAL HISTORY: CHF . COMPARISON: 05/07/2025 and dating back to 07/23/2019 TECHNIQUE: PA and lateral views of the chest. FINDINGS The left medial chest is partially obscured due to pacemaker generator. Wires project over the right atrium and right ventricle. Enlargement of the right superior mediastinum, which may simply represent pulmonary vasculature as th e pulmonary artery was markedly enlarged on CT of the chest dated 07/23/2019. However, this is an interval change from examination performed 07/01/2024, unchanged from 04/05/2025 and 05/07/2025. Cross-sectional imaging (noncontrast enhanced CT examination of the chest) [facility] be [facility], if the patient is clinically able, providing this is an unknown finding. The remainder of the cardiomediastinal silhouette is otherwise unremarkable. Increased interstitial markings are identified bilaterally, findings suggesting mild pulmonary vascul ar congestion. Calcified granuloma within the left upper lobe, with adjacent scar formation, unchanged from prior. The remainder of the lungs are otherwise clear. IMPRESSION: Asymmetry of the right superior mediastinum, for which noncontrast enhanced CT examination of the opal st is suggested (if the patient is clinically able) nonemergently for further evaluation. Otherwise: Mild pulmonary vascular congestion, without focal infiltrate or effusion. Reviewed, dictated and finalized at location A. IMPRESSION: Asymmetry of the right superior mediastinum, for which noncontrast enhanced CT examination of the chest is suggested (if the patient is clinically able) nonem ergently for further evaluation. Otherwise: Mild pulmonary vascular congestion, without focal infiltrate or effusion.
--- NOTE | ~2025-05-07 | XR_ITS ---
CHEST RADIOGRAPH CLINICAL HISTORY: SOB, hx CHF . COMPARISON: 04/05/2025 TECHNIQUE: Single portable view of the chest. FINDINGS The left mid lung is partially obscured due to pacemaker generator. Wires project over the right atrium and right ventricle. The remainder of the cardiomediastinal silhouette is enlarged, unchanged. Increased interstitial markings are identified bilaterally, findings suggesting mild pulmonary vascul ar congestion. The lungs are otherwise clear. IMPRESSION: Mild pulmonary vascular congestion, without focal infiltrate or effusion. Reviewed, dictated and finalized at location A.
--- NOTE | ~2025-05-07 | US_ITS ---
EXAMINATION: US venous doppler [facility] DATE: 05/08/2025 08:44 INDICATION: Swelling. TECHNIQUE: Grayscale ultrasound images without and with compression and Doppler ultrasound images of the bilateral lower extremity veins were obtained. COMPARISON: None. FINDINGS: The visualized portions of right common femoral vein, profunda (deep) femoral vein, femoral vein, pop liteal vein, peroneal veins, posterior tibial veins, and greater saphenous vein outflow are patent. The visualized portions of left common femoral vein, profunda femoral vein, femoral vein, popliteal v ein, peroneal veins, posterior tibial veins, and greater saphenous vein outflow are patent. IMPRESSION: 1. No deep venous thrombosis. Reviewed, dictated and finalized at location A.
--- OUTSIDE RECORDS SUMMARY | 2025-05-07 09:10 | XMS_ITS | Encounter Summary ---
Author Organization [facility] Address [address] [place] [id number] Care Team Providers Care User Experience Researcher Name Role Phone Akil Chan MD Primary Care Provider [phone] Tyler Brady MD Unavailable [phone] Vinod López DO Primary Care Provider [phone] Encounter Details Date Type Department Care Team (Late st Contact Info) Description 02/20/2019 CoPromote Message Enc [facility], [facility] [address] [place] [address] Tyler Brady MD [facility]. 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 Thank you, LP * Jimena Chapman RN - 02/20/2019 9:10 AM CDT See note. documented in this encounter Plan of Treatment Not on file documented as of this encounter Visit Diagnoses Not on filedocumented in this encounter Care Teams User Experience Researcher Relationship Specialty Start Date End Date kAil Chan MD PCP - General INTERNAL MEDICINE 09/01/18 03/15/19 Vinod López DO [address] [place] [id number] PCP - General INTERNAL MEDICINE 03/16/19 Tyler Brady MD [facility]. [facility] [address] [place] [address] [employer] Operator CARDIOVASCULAR DISEASE 09/01/18 documented as of this encounter
--- OUTSIDE RECORDS SUMMARY | 2025-05-07 09:10 | XMS_ITS | Encounter Summary ---
Author Organization [facility] Address [address] [facility] [address] [place] [id number] Care Team Providers Care Field Counsel Name Role Phone Akil Chan MD Primary Care Provider [phone] Vinod López DO Primary Care Provider [phone] Thanh Alexandre MD, Flash Unavailable [phone] Encounter Details Date Type Department Care Team (Late st Contact Info) Description 02/12/2017 Orders Only [facility] ProviderLisa MD [address] [place], [place] [id number] Social History Tobacco Use Types Packs/Day Years Used Date Smoking Tobacco: Never Alcohol Use Standard Drinks/Week Comments Yes 0 (1 standard drink = 0.6 oz pur e alcohol) Comments Unknown Sex and Gender Information Value Date Recorded Sex Assigned at Not on file Legal Sex Female 3:20 AM FRONT TENDER Gender Identity Female 11/18/2019 4:40 AM FRONT TENDER Sexual Orientation Straight 11/18/2019 4: 40 AM FRONT TENDER documented as of this encounter Plan of [...] on filedocumented in this encounter Care Teams Field Counsel Relationship Specialty Start Date End Date Akil Chan MD [address] [place] [address] PCP - General 02/05/17 11/10/19 Vinod López DO [address] [place] [address] PCP - General Internal Medicine 11/11/19 Flash Law Jr., MD [address] INTERNAL MEDICINE [place], [place] [id number] Medical Oncologist/Inspector Of Dredging Medical Oncology 12/14/19 documented as of this encounter
--- OUTSIDE RECORDS SUMMARY | 2025-05-07 09:10 | XMS_ITS | Encounter Summary ---
Author Organization [facility] Address [address] [place] [address] Care Team Providers Care Manager Customs Name Role Phone Akil Chan MD Primary Care Provider [phone] Tyler Brady MD Unavailable [phone] Vinod López DO Primary Care Provider [phone] Encounter Details Date Type Department Care Team (Late st Contact Info) Description 03/10/2019 Trist Message Enc [facility] at [facility], [facility] [address] [place] [address] Tyler Brady MD [facility]. 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 AGENT Legal Sex Female 6:14 PM CDT Gender Identity Female 11/05/2018 3:21 PM STATION BAGGAGE AGENT Sexual Orientation Not on file Occupation Industry Job Start Date Job End Date Not on file Not on file Not on file Not on file documented as of this encounter Plan of Treatment Not on file documented as of this encounter Visit Diagnoses Not on filedocumented in this encounter Care Teams Manager Customs Relationship Specialty Start Date End Date Akil Chan MD PCP - General INTERNAL MEDICINE 09/01/18 03/15/19 Vinod López DO [address] [facility] [address] [place] [address] PCP - General INTERNAL MEDICINE 03/16/19 Tyler Brady MD [facility] [address] [place] [address] [place] Coffee Machine Technician CARDIOVASCULAR DISEASE 09/01/18 documented as of this encounter
--- OUTSIDE RECORDS SUMMARY | 2025-05-07 09:10 | XMS_ITS | Encounter Summary ---
Author Organization [facility] Address [address] [place] [address] Care Team Providers Care Blueprinting And Photocopy Supervisor Name Role Phone Akil Chan MD Primary Care Provider [phone] Tyler Brady MD Unavailable [phone] Vinod López DO Primary Care Provider [phone] Encounter Details Date Type Department Care Team (Late st Contact Info) Description 02/24/2019 [employer] Message Enc [facility] at [facility], [email or web address] [address] [place] [address] Tyler Brady MD [facility]. [email or web address] [address] [place] [address] Other Social History Tobacco Use [...] Sex Assigned at Female 11/05/2018 3:21 PM HOSPICE EXECUTIVE DIRECTOR Legal Sex Female 6:14 PM CDT Gender Identity Female 11/05/2018 3:21 PM HOSPICE EXECUTIVE DIRECTOR Sexual Orientation Not on file Occupation Industry Job Start Date Job End Date Not on file Not on file Not on file Not on file documented as of this encounter Plan of Treatment Not on file documented as of this encounter Visit Diagnoses Not on filedocumented in this encounter Care Teams Blueprinting And Photocopy Supervisor Relationship Specialty Start Date End Date Akil Chan MD PCP - General INTERNAL MEDICINE 09/01/18 03/15/19 Vinod López DO 2090 [facility] [address] [place] [address] PCP - General INTERNAL MEDICINE 03/16/19 Tyler Brady MD [facility] [address] [place] [address] [place] Clinical Research Manager CARDIOVASCULAR DISEASE 09/01/18 documented as of this encounter
--- OUTSIDE RECORDS SUMMARY | 2025-05-07 09:10 | XMS_ITS | Encounter Summary ---
Author Organization [facility] Address [address] [place] [address] Care Team Providers Care Hemp Fiber Taker Off Name Role Phone Akil Chan MD Primary Care Provider [phone] Tyler Brady MD Unavailable [phone] Vinod López DO Primary Care Provider [phone] Encounter Details Date Type Department Care Team (Late st Contact Info) Description 11/22/2018 broadbandchoices Message Enc [facility] at [facility], [facility] [address] [place] [address] Tyler Brady MD [facility]. [facility] [address] [place] [address] RE: Medication Questions Social History [...] Sex Assigned at Female 11/05/2018 3:21 PM MEDICAL IMAGING TECHNICIAN Legal Sex Female 6:14 PM CDT Gender Identity Female 11/05/2018 3:21 PM MEDICAL IMAGING TECHNICIAN Sexual Orientation Not on file Occupation Industry Job Start Date Job End Date Not on file Not on file Not on file Not on file documented as of this encounter Plan of Treatment Not on file documented as of this encounter Visit Diagnoses Not on filedocumented in this encounter Care Teams Hemp Fiber Taker Off Relationship Specialty Start Date End Date Akil Chan MD PCP - General INTERNAL MEDICINE 09/01/18 03/15/19 Vinod López DO [facility]90 [facility] [address] [place] [address] PCP - General INTERNAL MEDICINE 03/16/19 Tyler Brady MD [facility] [address] [place] [address] [place] Otr Flatbed Company Truck Driver CARDIOVASCULAR DISEASE 09/01/18 documented as of this encounter
--- OUTSIDE RECORDS SUMMARY | 2025-05-07 09:10 | XMS_ITS | Encounter Summary ---
Author Organization [facility] Address [address] [place] [address] Care Team Providers Care Senior Quality Assurance Analyst Name Role Phone Akil Chan MD Primary Care Provider [phone] Tyler Brady MD Unavailable [phone] Vinod López DO Primary Care Provider [phone] Encounter Details Date Type Department Care Team (Late st Contact Info) Description 03/05/2019 Status Work Ltd Message Enc [facility] at [facility] [address] [place] [address] Tyler Brady MD [facility]. [facility] [address] [place], [place] [id number] Medication Questions Social History Tobacco Use Types [...] Sex Assigned at Female 11/05/2018 3:21 PM JUNIOR ORACLE DBA Legal Sex Female 6:14 PM CDT Gender Identity Female 11/05/2018 3:21 PM JUNIOR ORACLE DBA Sexual Orientation Not on file Occupation Industry Job Start Date Job End Date Not on file Not on file Not on file Not on file documented as of this encounter Plan of Treatment Not on file documented as of this encounter Visit Diagnoses Not on filedocumented in this encounter Care Teams Senior Quality Assurance Analyst Relationship Specialty Start Date End Date Akil Chan MD PCP - General INTERNAL MEDICINE 09/01/18 03/15/19 Vinod López DO 2090 [facility] [address] [place] [address] PCP - General INTERNAL MEDICINE 03/16/19 Tyler Brady MD [facility] [address] [place] [address] [place] Mechanic Marine Engine CARDIOVASCULAR DISEASE 09/01/18 documented as of this encounter
--- OUTSIDE RECORDS SUMMARY | 2025-05-07 09:10 | XMS_ITS | Encounter Summary ---
Author Organization [facility] Address [address] [place] [address] Care Team Providers Care Fishing Reel Assembler Name Role Phone Akil Chan MD Primary Care Provider [phone] Tyler Brady MD Unavailable [phone] Vinod López DO Primary Care Provider [phone] Encounter Details Date Type Department Care Team (Late st Contact Info) Description 12/01/2018 [employer] Message Enc [facility] at [facility], [facility] [address] [place] [address] Tyler [facility] MD [facility]. [facility] [address] [place], [place] [id number] Test Results Social History Tobacco Use Types [...] Sex Assigned at Female 11/05/2018 3:21 PM AUTOMOBILE ASSEMBLY SUPERVISOR Legal Sex Female 6:14 PM CDT Gender Identity Female 11/05/2018 3:21 PM AUTOMOBILE ASSEMBLY SUPERVISOR Sexual Orientation Not on file Occupation Industry Job Start Date Job End Date Not on file Not on file Not on file Not on file documented as of this encounter Progress Notes * Jimena Chapman RN - 12/01/2018 10:49 AM CST See patient record request - thank you. MOBILE ASSEMBLY SUPERVISOR documented in this encounter Plan of Treatment Not on file documented as of this encounter Visit Diagnoses Not on filedocumented in this encounter Care Teams Fishing Reel Assembler Relationship Specialty Start Date End Date Akil Chan MD PCP - General INTERNAL MEDICINE 09/01/18 03/15/19 Vinod López DO [address] [place], [place] [address] [id number] PCP - General INTERNAL MEDICINE 03/16/19 Tyler Brady MD [facility] [address] [place] [address] [place] Commutator V Ring Assembler CARDIOVASCULAR DISEASE 09/01/18 documented as of this encounter
--- OUTSIDE RECORDS SUMMARY | 2025-05-07 09:11 | XMS_ITS | Encounter Summary ---
Author Organization [facility] Address [address] [place] [address] Care Team Providers Care Safety Manager Name Role Phone Tyler Brady MD Unavailable Vinod López DO Primary Care Provider [phone] Encounter Details Date Type Department Care Team (Late st Contact Info) Description 03/16/2019 [employer] Message [facility] at [facility], [facility] [address] [place] [address] Tyler Brady MD [facility]. [facility] [address] [place], [place] [id number] Follow Up/Update Social History Tobacco Use Types [...] Sex Assigned at Female 11/05/2018 3:21 PM SOLAR THERMAL INSTALLER Legal Sex Female 6:14 PM CDT Gender Identity Female 11/05/2018 3:21 PM SOLAR THERMAL INSTALLER Sexual Orientation Not on file Occupation Industry [...] on filedocumented in this encounter Care Teams Safety Manager Relationship Specialty Start Date End Date Vinod López DO [address] [facility] [address] [place] [address] PCP - General INTERNAL MEDICINE 03/16/19 Tyler Brady MD [facility] [address] [place] [address] [place] Computer Technology Instructor CARDIOVASCULAR DISEASE 09/01/18 documented as of this encounter
--- OUTSIDE RECORDS SUMMARY | 2025-05-07 09:11 | XMS_ITS | Encounter Summary ---
Author Organization [facility] Address [address] [place] [address] Care Team Providers Care Research Intern Name Role Phone Akil Chan MD Primary Care Provider [phone] Tyler Brady MD Unavailable [phone] Vinod López DO Primary Care Provider [phone] Encounter Details Date Type Department Care Team (Late st Contact Info) Description 10/13/2018 Agent Panda Message [facility] at [facility], [facility] [address] [place] [address] Tyler Brady MD [facility]. [facility] [address] [place], [place] [phone] Medication Questions Social History Tobacco Use Types [...] Sex Assigned at Female 11/05/2018 3:21 PM KERFER MACHINE OPERATOR Legal Sex Female 6:14 PM CDT Gender Identity Female 11/05/2018 3:21 PM KERFER MACHINE OPERATOR Sexual Orientation Not on file Occupation Industry Job Start Date Job End Date Not on file Not on file Not on file Not on file documented as of this encounter Plan of Treatment Not on file documented as of this encounter Visit Diagnoses Not on filedocumented in this encounter Care Teams Research Intern Relationship Specialty Start Date End Date Akil Chan MD PCP - General INTERNAL MEDICINE 09/01/18 03/15/19 Vinod López DO 2090 [facility] [address] [place] [address] PCP - General INTERNAL MEDICINE 03/16/19 Tyler Brady MD [facility] [address] [place] [address] [place] Wet Char Conveyor Tender CARDIOVASCULAR DISEASE 09/01/18 documented as of this encounter
--- OUTSIDE RECORDS SUMMARY | 2025-05-07 09:11 | XMS_ITS | Encounter Summary ---
Author Organization [facility] Address [address] [place] [address] Care Team Providers Care Painter Mirror Name Role Phone Tyler Brady MD Unavailable [phone] Vinod López DO Primary Care Provider [phone] Encounter Details Date Type Department Care Team (Late st Contact Info) Description 03/23/2019 Pronota Message [facility] at [facility], [facility] [address] [place] [address] Tyler Brady MD [facility]. [facility] [address] [place], [place] [phone] Medication Questions Social History Tobacco Use Types [...] Sex Assigned at Female 11/05/2018 3:21 PM CIRCULAR RIPSAW OPERATOR Legal Sex Female 6:14 PM CDT Gender Identity Female 11/05/2018 3:21 PM CIRCULAR RIPSAW OPERATOR Sexual Orientation Not on file Occupation [...] on filedocumented in this encounter Care Teams Painter Mirror Relationship Specialty Start Date End Date Vinod López DO 2089 [facility] 204 [place] [address] PCP - General INTERNAL MEDICINE 03/16/19 Tyler Brady MD [facility] [address] [place] [address] [place] Hedge Trimmer CARDIOVASCULAR DISEASE 09/01/18 documented as of this encounter
--- OUTSIDE RECORDS SUMMARY | 2025-05-07 09:11 | XMS_ITS | Encounter Summary ---
Author Organization [facility] Address [facility] [place] [address] Care Team Providers Care Deburr Technician Name Role Phone Tyler Brady MD Unavailable [phone] Vinod López DO Primary Care Provider [phone] Encounter Details Date Type Department Care Team (Late st Contact Info) Description 03/27/2019 Crow[employer] Message [facility] at [facility], [facility] [address] [place] [address] Tyler Brady MD [facility]. [facility] [address] [place], [place] [id number] Other Social History Tobacco Use Types Packs/Day [...] Sex Assigned at Female 11/05/2018 3:21 PM BALLROOM DANCER Legal Sex Female 6:14 PM CDT Gender Identity Female 11/05/2018 3:21 PM BALLROOM DANCER Sexual Orientation Not on file Occupation Industry [...] on filedocumented in this encounter Care Teams Deburr Technician Relationship Specialty Start Date End Date Vinod López DO 2089 [facility] [address] [place] [address] PCP - General INTERNAL MEDICINE 03/16/19 Tyler Brady MD [facility] [address] [place] [address] [place] Senior Research Scientist CARDIOVASCULAR DISEASE 09/01/18 documented as of this encounter
--- OUTSIDE RECORDS SUMMARY | 2025-05-07 09:11 | XMS_ITS | Encounter Summary ---
Author Organization [facility] Address [address] [place] [address] Care Team Providers Care Medical Administrative Assistant Name Role Phone Akil Chan MD Primary Care Provider [phone] Tyler Brady MD Unavailable [phone] Vinod López DO Primary Care Provider [phone] Encounter Details Date Type Department Care Team (Late st Contact Info) Description 09/05/2018 Traka Message Enc [facility] at [facility], [facility] [address] [place] [address] Tyler Brady MD [facility]. [facility] [address] [place], [place] [phone] Medication Questions Social History Tobacco Use Types [...] Assigned at Female 11/05/2018 3:21 PM SUPERVISOR ROUGH END Legal Sex Female 6:14 PM CDT Gender Identity Female 11/05/2018 3:21 PM SUPERVISOR ROUGH END Sexual Orientation Not on file documented as of this encounter Plan of Treatment Not on file documented as of this encounter Visit Diagnoses Not on filedocumented in this encounter Care Teams Medical Administrative Assistant Relationship Specialty Start Date End Date Akil Chan MD PCP - General INTERNAL MEDICINE 09/01/18 03/15/19 Vinod López DO [address] [place] [address] 204 [place], [place] [phone] PCP - General INTERNAL MEDICINE 03/16/19 Tyler Brady MD [facility] [address] [place] [address] [place] Wafer Substrate Tester CARDIOVASCULAR DISEASE 09/01/18 documented as of this encounter
--- OUTSIDE RECORDS SUMMARY | 2025-05-07 09:11 | XMS_ITS | Encounter Summary ---
Author Organization [facility] Address [address] [place] [address] Care Team Providers Care Contour Band Saw Operator Vertical Name Role Phone Tyler Brady MD Unavailable [phone] Vinod López DO Primary Care Provider [phone] Encounter Details Date Type Department Care Team (Late st Contact Info) Description 03/23/2019 [employer] Message [employer] [facility] at [facility], [facility] [address] [place] [address] Tyler Brady MD [facility]. [facility] [address] [place], [place] [id number] Medication Questions Social History Tobacco Use Types [...] Sex Assigned at Female 11/05/2018 3:21 PM ASPHALT LAYER Legal Sex Female 6:14 PM CDT Gender Identity Female 11/05/2018 3:21 PM ASPHALT LAYER Sexual Orientation Not on file Occupation Industry [...] on filedocumented in this encounter Care Teams Contour Band Saw Operator Vertical Relationship Specialty Start Date End Date Vinod López DO 2089 [facility] [address] [place] [address] PCP - General INTERNAL MEDICINE 03/16/19 Tyler Brady MD [facility] [address] [place] [address] [place] Shotweld Operator CARDIOVASCULAR DISEASE 09/01/18 documented as of this encounter
--- OUTSIDE RECORDS SUMMARY | 2025-05-07 09:11 | XMS_ITS | Clinical Summary ---
Author Organization [facility] Address [address] [place] [address] Care Team Providers Care Superintendent Pier Name Role Phone Vinod López Primary Care Provider [phone] Source Comments [facility],non-owned Affiliates and Associated Physician Practices is amultiple site organization consisting of ambulatory clinics and hospital sitesin [place], [place], [place] and [place]. This disclosure is being madepursuant to the Care Everywhere program and may not contain all information available regarding this patient. Last updated 18.[facility] Allergies Active Allergy Reactions Criticality Noted Date [...] on file Legal Sex Female 8:43 PM SENIOR ENVIRONMENTAL TECHNICIAN Gender Identity Not on file Sexual Orientation Not on file Last Filed Vital Signs Vital Sign Reading Time Taken Comments Blood Pressure 136/82 11/07/2020 10:57 AM SENIOR ENVIRONMENTAL TECHNICIAN Pulse 70 11/07/2020 10:57 AM SENIOR ENVIRONMENTAL TECHNICIAN Temperature - - Respiratory Rate 12 11/07/2020 10:5 7 AM SENIOR ENVIRONMENTAL TECHNICIAN Oxygen Saturation - - Inhaled Oxygen Concentration - - Weight 124.4 kg (274 lb 3.2 oz) 021 10:57 AM SENIOR ENVIRONMENTAL TECHNICIAN Height 160 cm (5' 3) 11/07/2020 10:57 AM SENIOR ENVIRONMENTAL TECHNICIAN Body Mass Index 48.57 11/07/2020 10:57 AM SENIOR ENVIRONMENTAL TECHNICIAN Plan of Treatment Health Maintenance Due Date [...] SAM Subscriber ID:Not on file (Home) Address: [address] [place] [id number] Payer ID:Not on file Group ID:Not on file Type:Self Pay Address: [place], [place] Care Teams Superintendent Pier Relationship Specialty Start Date End Date Vinod López DO [address] [place], [place] [id number] PCP - General Internal Medicine 04/03/19
--- OUTSIDE RECORDS SUMMARY | 2025-05-07 09:11 | XMS_ITS | Encounter Summary ---
Author Organization [facility] Address [address] [place] [address] Care Team Providers Care Steam Tank Operator Name Role Phone Akil Chan MD Primary Care Provider Tyler Brady MD Unavailable [phone] Vinod López DO Primary Care Provider [phone] Encounter Details Date Type Department Care Team (Late st Contact Info) Description 02/02/2019 Movile Message Enc [facility], [facility] [address] [place] [address] Tyler Brady MD [facility]. [facility] [address] [place] [address] Follow Up/Update Social History Tobacco [...] Sex Assigned at Female 11/05/2018 3:21 PM BRIDGE MANAGER Legal Sex Female 6:14 PM CDT Gender Identity Female 11/05/2018 3:21 PM BRIDGE MANAGER Sexual Orientation Not on file Occupation [...] had no further questions. Message to the paralegal legal secretary. * Tyler Brady MD - 02/03/2019 [...] fibrillation documented in this encounter Care Teams Steam Tank Operator Relationship Specialty Start Date End Date Akil Chan MD PCP - General INTERNAL MEDICINE 09/01/18 03/15/19 Vinod López DO [address] [place] [address] 204 [place], [place] [id number] PCP - General INTERNAL MEDICINE 03/16/19 Tyler Brady MD [facility] [address] [place] [address] [place] Quill Reamer CARDIOVASCULAR DISEASE 09/01/18 documented as of this encounter
--- OUTSIDE RECORDS SUMMARY | 2025-05-07 09:11 | XMS_ITS | Encounter Summary ---
Author Organization [facility] Address [address] [place] [address] Care Team Providers Care Ad Operations Intern Name Role Phone Akil Chan MD Primary Care Provider [phone] Tyler Brady MD Unavailable [phone] Vinod López DO Primary Care Provider [phone] Encounter Details Date Type Department Care Team (Late st Contact Info) Description 09/03/2018 [employer] Message Enc [facility] at [facility], [facility] [address] [place] [address] Tyler Brady MD [facility]. [facility] [address] [place], [place] [phone] Follow Up/Update Social History Tobacco Use Types [...] Sex Assigned at Female 11/05/2018 3:21 PM BUILDING REPAIR MAINTENANCE SUPERVISOR Legal Sex Female 6:14 PM CDT Gender Identity Female 11/05/2018 3:21 PM BUILDING REPAIR MAINTENANCE SUPERVISOR Sexual Orientation Not on file documented as of this encounter Plan of Treatment Not on file documented as of this encounter Visit Diagnoses Not on filedocumented in this encounter Care Teams Ad Operations Intern Relationship Specialty Start Date End Date Akil Chan MD PCP - General INTERNAL MEDICINE 09/01/18 03/15/19 Vinod López DO [address] [place] [address] 204 [place], [place] [id number] PCP - General INTERNAL MEDICINE 03/16/19 Tyler Brady MD [facility] [address] [place] [address] [place] Mining Teacher CARDIOVASCULAR DISEASE 09/01/18 documented as of this encounter
--- OUTSIDE RECORDS SUMMARY | 2025-05-07 09:11 | XMS_ITS | Continuity of Care Document ---
Author Name [facility] Organization [facility] Care Team Providers Care Supervisor Dock Name Role Phone [facility] Unavailable Unavailable Medications Combined list of outpatient [...] BOEHRINGER ING., 30 ea. BOTTLE Cancele d [id number] : 2023 0 Pharmac y Data Transac tion Service Facilit y JARDIANCE (EMPAGLIFLO ZIN), 10 MG, TABLET, ORAL, BOEHRINGER ING., 90 ea. BOTTLE Active [id number] 4 2023 90 Pharmac y Data Transac tion Service Facilit y METOPROLOL TARTRATE (metoprolol tartrate), 50 MG, TABLET, ORAL, [employer] 1000 ea. BOTTLE Active [id number] 4 2023 180 Pharmac y Data Transac tion Service Facilit y Allergies, Adverse Reactions, Alerts Combined list of allergies from Department of Defense and Veterans Affairs facilities. It does not include entries that were removed or entered in error. Substance Category Reaction Severity Reaction type Status Date Reported Comments Source SULFA-DRUGS Drug allergy (disorder) Unknown active 10/01/2006 [facility] Jayesh RIZVI ([facility]) Immunizations Combined list of available immunizations from the Department of Defense and Veterans Affairs facilities. Immunization Series Date Given Administered By Site Reaction Lot Number CVX Code Drug Marketing Communications Manager Status Comments Source Influenza vaccine, quadrivalent, adjuvanted 2020 YVAN, () Not Given Influenza vaccine, quadrival ent, adjuvante d [facility] COVID-19, mRNA, LNP-S, PF, 30 mcg/0.3 mL dose 2020 TONY, [employer] [place] (PFR) Not Given COVID-19, mRNA, LNP-S, PF, 30 mcg/0.3 mL dose DoD COVID-19, mRNA, LNP-S, PF, 30 mcg/0.3 mL dose 2020 YVNA, [employer] (PFR) Not Given COVID-19, mRNA, LNP-S, PF, 30 mcg/0.3 mL dose DoD COVID-19, mRNA, LNP-S, PF, 30 mcg/0.3 mL dose 2020 CORINNE, [employer] [place] (PFR) Not Given COVID-19, mRNA, LNP-S, PF, 30 mcg/0.3 mL dose DoD zoster live 2013 SHEILA URENA DO () Not Given zoster live DoD Social History Combined list of available smoking, tobacco, and other social history from Department of Defense and Veterans Affairs facilities. Social History Type Response Date Comment [facility] e This section is an empty social history section. DoD
--- OUTSIDE RECORDS SUMMARY | 2025-05-07 09:11 | XMS_ITS | Encounter Summary ---
Author Organization [facility] Address [address] [place] [address] Care Team Providers Care Veneer Jointer Operator Name Role Phone Akil Chan MD Primary Care Provider [phone] Tyler Brady MD Unavailable [phone] Vinod López DO Primary Care Provider [phone] Encounter Details Date Type Department Care Team (Late st Contact Info) Description 02/16/2019 [email or web address] Message Enc [facility] at [facility], [facility] [address] [place] [address] Tyler Brady MD [facility]. [facility] [address] [place], [place] [id number] Follow Up/Update Social History Tobacco Use Types [...] Sex Assigned at Female 11/05/2018 3:21 PM PARCEL POST TRUCK DRIVER Legal Sex Female 6:14 PM CDT Gender Identity Female 11/05/2018 3:21 PM PARCEL POST TRUCK DRIVER Sexual Orientation Not on file Occupation Industry Job Start Date Job End Date Not on file Not on file Not on file Not on file documented as of this encounter Plan of Treatment Not on file documented as of this encounter Visit Diagnoses Not on filedocumented in this encounter Care Teams Veneer Jointer Operator Relationship Specialty Start Date End Date Akil Chan MD PCP - General INTERNAL MEDICINE 09/01/18 03/15/19 Vinod López DO 2090 [facility] [address] [place] [address] PCP - General INTERNAL MEDICINE 03/16/19 Tyler Brady MD [facility] [address] [place] [address] Jet Marketing Development Manager CARDIOVASCULAR DISEASE 09/01/18 documented as of this encounter
--- OUTSIDE RECORDS SUMMARY | 2025-05-07 09:11 | XMS_ITS | Encounter Summary ---
Author Organization [facility] Address [address] [place] [address] Care Team Providers Care Sr. Social Media & Mobile Manager Name Role Phone Akil Chan MD Primary Care Provider [phone] Tyler Brady MD Unavailable [phone] Vinod López DO Primary Care Provider [phone] Encounter Details Date Type Department Care Team (Late st Contact Info) Description 09/08/2018 [employer] Message Enc [facility] at [facility], [facility] [address] [place] [address] Tyler Brady MD [facility]. [facility] [address] [place], [place] [id number] Follow Up/Update Social History Tobacco Use Types [...] Sex Assigned at Female 11/05/2018 3:21 PM STRINGS TEACHER Legal Sex Female 6:14 PM CDT Gender Identity Female 11/05/2018 3:21 PM STRINGS TEACHER Sexual Orientation Not on file documented as of this encounter Plan of Treatment Not on file documented as of this encounter Visit Diagnoses Not on filedocumented in this encounter Care Teams Sr. Social Media & Mobile Manager Relationship Specialty Start Date End Date Akil Chan MD PCP - General INTERNAL MEDICINE 09/01/18 03/15/19 Vinod López DO [address] [place] [address] [address] [place], [place] [id number] PCP - General INTERNAL MEDICINE 03/16/19 Tyler Brady MD [facility] [address] [place] [address] [place] Customer Engagement Manager CARDIOVASCULAR DISEASE 09/01/18 documented as of this encounter
--- OUTSIDE RECORDS SUMMARY | 2025-05-07 09:11 | XMS_ITS | Encounter Summary ---
Author Organization [facility] Address [address] [place] [address] Care Team Providers Care Residential Property Tax Appraiser Name Role Phone Akil Chan MD Primary Care Provider [phone] Tyler Brady MD Unavailable [phone] Vinod López DO Primary Care Provider [phone] Encounter Details Date Type Department Care Team (Late st Contact Info) Description 09/03/2018 Abstract [facility] at [address] [address] Torres Oshea MA Social History [...] Sex Assigned at Female 11/05/2018 3:21 PM SAMPLER FIRST Legal Sex Female 6:14 PM CDT Gender Identity Female 11/05/2018 3:21 PM SAMPLER FIRST Sexual Orientation Not on file documented as [...] on filedocumented in this encounter Care Teams Residential Property Tax Appraiser Relationship Specialty Start Date End Date Akil Chan MD PCP - General INTERNAL MEDICINE 09/01/18 03/15/19 Vinod López DO 20[address] [facility] [address] [place] [address] PCP - General INTERNAL MEDICINE 03/16/19 Tyler Brady MD [facility] [address] [place] [address] [place] Seed Service Advisor CARDIOVASCULAR DISEASE 09/01/18 documented as of this encounter
--- OUTSIDE RECORDS SUMMARY | 2025-05-07 09:11 | XMS_ITS | Encounter Summary ---
Author Organization [facility] Address [address] [place] [address] Care Team Providers Care Transmission System Operator Name Role Phone Akil Chan MD Primary Care Provider Tyler Brady MD Unavailable [phone] Vinod López DO Primary Care Provider [phone] Encounter Details Date Type Department Care Team (Late st Contact Info) Description 10/22/2018 [employer] Message Enc [facility] at [facility], [facility] [address] [place] [address] Tyler Brady MD [facility]. [facility] [address] [place] [address] Follow Up/Update Social History Tobacco [...] Sex Assigned at Female 11/05/2018 3:21 PM RECRUITING ADMINISTRATOR Legal Sex Female 6:14 PM CDT Gender Identity Female 11/05/2018 3:21 PM RECRUITING ADMINISTRATOR Sexual Orientation Not on file Occupation Industry [...] the patient. Message sent to Dr. Brady. UITING ADMINISTRATOR documented in this encounter Plan of Treatment Not on file documented as of this encounter Visit Diagnoses Not on filedocumented in this encounter Care Teams Transmission System Operator Relationship Specialty Start Date End Date Akil Chan MD PCP - General INTERNAL MEDICINE 09/01/18 03/15/19 Vinod López DO 2090 [facility] [address] [place], [place] [id number] PCP - General INTERNAL MEDICINE 03/16/19 Tyler Brady MD [facility]. [facility] [address] [place] [address] [place] Electromatic Typist CARDIOVASCULAR DISEASE 09/01/18 documented as of this encounter
--- OUTSIDE RECORDS SUMMARY | 2025-05-07 09:11 | XMS_ITS | Clinical Summary ---
Author Organization [facility] Address [address] [place] [address] Care Team Providers Care Consular Officer Name Role Phone Maribel Vinod Primary Care Provider [phone] Thanh Alexandre MD, Flash Unavailable [phone] Allergies Active Allergy Reactions Criticality Noted Date [...] by mouth daily. 0 8 Active vit C,J-Dw-cmmzu-lut ein-zeaxan [id number] oe-enws-va-mg capsule Take 1 capsule by mouth 2 [...] Keshia Murray Voci Arthritis Sister 2 Bell Humphrey Cancer Sister 3 Corinne John Anemia Son Bill Osorio Relation Name Status Comments Brother Robin Daughter 1 Mariangel Osorio Daughter 2 Jimena Osorio Father Wilbert Lopez (Age 71) Mother Katharina Lopez (Age 63) Mother's Sister Nikole Rodriguez Other 1 Other 2 Other 3 Other 4 Other 5 Sister 1 Keshia Hamlin Sister 2 Bell Starkley Sister 3 Corinne John Son Bill Osorio Social History Tobacco Use Types Packs/Day Years Used Date Smoking Tobacco: Never Smokeless Tobacco: Never Alcohol Use Standard Drinks/Week Comments Yes 0 (1 standard drink = 0.6 oz pure alcohol) Very rarely - wine holiday meal Comments Unknown Sex and Gender Information Value Date Recorded Sex Assigned at Not on file Legal Sex Female 3:20 AM TOWER HELPER Gender Identity Female 11/18/2019 4:40 AM TOWER HELPER Sexual Orientation Straight 11/18/2019 4: 40 AM TOWER HELPER Obstetrics History Last Filed Vital Signs Vital Sign Reading Time Taken Comments Blood Pressure 146/83 01/06/2020 2:08 PM TOWER HELPER rn notified Pulse 61 01/06/2020 2:08 PM TOWER HELPER Temperature 36.8 C (98.3 F) 01/06/2020 2:08 PM TOWER HELPER Respiratory Rate 16 01/06/2020 2:08 PM TOWER HELPER Oxygen Saturation 97% 01/06/2020 2:0 8 PM TOWER HELPER Inhaled Oxygen Concentration - - Weight 124 kg (273 lb 6.4 oz) 0 2:08 PM TOWER HELPER Height 161.3 cm (5' 3.5) 01/06/2020 2: 08 PM TOWER HELPER Body Mass Index 47.66 01/06/2020 2:08 PM TOWER HELPER Plan of Treatment Health Maintenance Due Date Last Done Comments Depression Screening 1945 Fall Risk Assessment 1945 Hepatitis C Screening 1945 Osteoporosis Screening-Bone Density Scan 1945 DTaP/Tdap/Td Vaccine (1 - Tdap) 1956 Hepatitis B Screening 1963 Pneumococcal vaccine 65+ (1 of 1 - PCV) 1995 08/01/2005 Zoster Vaccine (1 of 2) 1995 Well Visit 65+ 2010 Influenza Vaccine (#1) 2025 9, 08/18/2017, 09/04/2016, Additional history exists Insurance MEDICARE [employer] MEDICARE [employer] LIFE MEDICARE [facility] Care Teams Consular Officer Relationship Specialty Start Date End Date Vinod López DO PCP - General Internal Medicine 11/11/19 Flash Law Jr., MD Medical Oncologist/Hadoop Developer Medical Oncology 12/14/19
--- OUTSIDE RECORDS SUMMARY | 2025-05-07 09:11 | XMS_ITS | Encounter Summary ---
Author Organization [facility] Address [address] [place] [address] Care Team Providers Care Scientific Director Name Role Phone Akil Chan MD Primary Care Provider [phone] Tyler Brady MD Unavailable [phone] Vinod López DO Primary Care Provider [phone] Reason for Visit * Reason Onset Date Comments Concerns 10/22/2018 Encounter Details Date Type Department Care Team (Late st Contact Info) Description 10/22/2018 [employer] Message [facility] at [place], [facility] [address] [place] [address] Tyler Brady MD [facility] [address] [place] [address] Follow Up/Update Social History Tobacco [...] Assigned at Female 11/05/2018 3:21 PM MANAGER RAIL Legal Sex Female 6:14 PM CDT Gender Identity Female 11/05/2018 3:21 PM MANAGER RAIL Sexual Orientation Not on file Occupation Industry [...] had no further questions. Message to the personal secretary. GER RAIL * Tyler Brady MD - 10/22/2018 9:11 [...] when its convenient to her. Andrés Avalos GER RAIL * Jimena Chapman RN - 10/22/2018 8:54 [...] the patient. Message sent to Dr. Brady. GER RAIL documented in this encounter Plan of Treatment Not on file documented as of this encounter Visit Diagnoses Not on filedocumented in this encounter Care Teams Scientific Director Relationship Specialty Start Date End Date Akil Chan MD PCP - General INTERNAL MEDICINE 09/01/18 03/15/19 Vinod López DO 0 [facility] [address] [place], [place] [address] PCP - General INTERNAL MEDICINE 03/16/19 Tyler Brady MD [facility]. [facility] [address] [place] [address] [place] Polishing Machine Operator CARDIOVASCULAR DISEASE 09/01/18 documented as of this encounter
--- OUTSIDE RECORDS SUMMARY | 2025-05-07 09:11 | XMS_ITS | Encounter Summary ---
Author Organization [facility] Address [address] [place] [address] Care Team Providers Care Composite Boat Builder Name Role Phone Akil Chan MD Primary Care Provider [phone] Tyler Brady MD Unavailable [phone] Vinod López DO Primary Care Provider [phone] Encounter Details Date Type Department Care Team (Late st Contact Info) Description 09/10/2018 [employer] Message Enc [facility] at [facility], [facility] [address] [place] [address] Tyler Brady MD [facility]. [facility] [address] [place], [place] [id number] Medication Questions Social History Tobacco Use Types [...] Sex Assigned at Female 11/05/2018 3:21 PM OLIVE PITTER Legal Sex Female 6:14 PM CDT Gender Identity Female 11/05/2018 3:21 PM OLIVE PITTER Sexual Orientation Not on file documented as of this encounter Plan of Treatment Not on file documented as of this encounter Visit Diagnoses Not on filedocumented in this encounter Care Teams Composite Boat Builder Relationship Specialty Start Date End Date Akil Chan MD PCP - General INTERNAL MEDICINE 09/01/18 03/15/19 Vinod López DO [address] [place] [address] [address] [place], [place] [id number] PCP - General INTERNAL MEDICINE 03/16/19 Tyler Brady MD [facility] [address] [place] [address] Mode Wire Brush Operator CARDIOVASCULAR DISEASE 09/01/18 documented as of this encounter
--- OUTSIDE RECORDS SUMMARY | 2025-05-07 09:11 | XMS_ITS | Clinical Summary ---
Author Organization [facility] Address [address] [place] [address] Care Team Providers Care Electrician Elevator Maintenance Name Role Phone Tyler Brady MD Unavailable [phone] Vinod López DO Primary Care Provider [phone] Allergies Active Allergy Reactions Criticality Noted Date [...] 2 (two) times a day. 8 Active [place] 3 1000 MG Cap Take 1 tablet [...] sotalol therapy 019 PAF (paroxysmal atrial fibrillation) ([facility]) 11/05/2018 Mitral regurgitation 09/02/2018 Diabetes ([facility]) 09/02/2018 Class 3 severe obesity due t o excess calories without serious comorbidity with body mass index (BMI) of 45.0 to 49.9 in adult 09/02/2018 GERD (gastroesophageal reflux disease) 8 A-fib ([facility]) Essential hypertension Family History Medical History Relation Comments [place] Father Relation Status Comments Father (Age 71) [...] Sex Assigned at Female 11/05/2018 3:21 PM FLOOR RUNNER Legal Sex Female 6:14 PM CDT Gender Identity Female 11/05/2018 3:21 PM FLOOR RUNNER Sexual Orientation Not on file Occupation Industry [...] 1:45 PM CDT Height 160 cm (5' 3) 03/31/2019 1:45 PM CDT Body Mass Index [...] this topic Medical Devices Implanted Type Area Cylinder Valve Repairer Device Identifier Shelf Expiration Date Model / Serial / Lot Right Atrial Lead-03/17/2019 Implanted:Qty: 1 on 03/17/2019 by Tyler Brady MD Lead Implant Heart [facility] 01/01/20228TC-4 6 / [id number] / Right Ventricular Lead-03/17/2019 Implanted:Qty: 1 on 03/17/2019 by Tyler Brady MD Lead Implant Heart [facility] 02/01/20222087TC-5 2 / [id number] / Sj Pacemaker-03/17 Implanted:Qty: 1 on 03/17/2019 by Tyler Brady MD Pacemaker Left: Chest [facility] 09/03/2020 [id number] / [id number] / Procedures Procedure Name Priority Date/Time Associated Diagnosis Comments OCCULT BLOOD, FECES STAT 10/25/2018 9 :14 AM FLOOR RUNNER from Last 3 Months or Most Recently Relevant to Health Maintenance Results * OCCULT BLOOD, FECES (10/25/2018 9:14 AM FLOOR RUNNER) OCCULT BLOOD FECAL NEGATIVE NEGATIVE 10/25/2018 9:29 AM FLOOR RUNNER [facility] STOOL SPECIMEN / Unknown 10/25/2018 9:14 AM FLOOR RUNNER Delbert Chowdary MD BODY FLUIDS AND STOOLS ORDERABLE S Final Result [facility] [address] [place] [address], [place] [phone] from Last 3 Months or Most Recently Relevant to Health Maintenance Insurance MEDICARE [facility] MEDICARE [employer] Advance Directives Documents on File Type Date Recorded Patient Gradall Operator Expl anation Advance Directives and Living Will 03/18/2019 7:44 AM Signed 11-30-13[facility] * Full Code (Latest Code Status on File) Date Activated Date Inactivated Comments 03/18/2019 2:01 AM 03/18/2019 2:52 PM * Full Code Date Activated Date Inactivated Comments 11/05/2018 2:25 PM 11/06/2018 5:57 PM * Full Code Date Activated Date Inactivated Comments 09/18/2018 1:31 PM 09/18/2018 4:45 PM Care Teams Electrician Elevator Maintenance Relationship Specialty Start Date End Date Vinod López DO [address] [place] [address] PCP - General INTERNAL MEDICINE 03/16/19 Tyler Brady MD [facility] [address] [place] [address] [place] Watch Train Assembler CARDIOVASCULAR DISEASE 09/01/18
--- OUTSIDE RECORDS SUMMARY | 2025-05-07 09:11 | XMS_ITS | Encounter Summary ---
Author Organization [facility] Address [address] [place] [address] Care Team Providers Care Loss Prevention Consultant Name Role Phone Akil Chan MD Primary Care Provider Tyler Brady MD Unavailable [phone] Vinod López DO Primary Care Provider [phone] Encounter Details Date Type Department Care Team (Late st Contact Info) Description 10/13/2018 [employer] Message FileHold Document [facility] at [facility], [facility] [address] [place] [address] Tyler Brady MD [facility]. [facility] [address] [place], [place] [id number] Medication Questions Social History Tobacco Use Types [...] Assigned at Female 11/05/2018 3:21 PM MANAGER DIGITAL Legal Sex Female 6:14 PM CDT Gender Identity Female 11/05/2018 3:21 PM MANAGER DIGITAL Sexual Orientation Not on file Occupation Industry Job Start Date Job End Date Not on file Not on file Not on file Not on file documented as of this encounter Plan of Treatment Not on file documented as of this encounter Visit Diagnoses Not on filedocumented in this encounter Care Teams Loss Prevention Consultant Relationship Specialty Start Date End Date Akil Chan MD PCP - General INTERNAL MEDICINE 09/01/18 03/15/19 Vinod López DO 2090 [employer] [facility] [address] [place] [address] PCP - General INTERNAL MEDICINE 03/16/19 Tyler Brady MD [facility] [address] [place] [address] [place] On Air Host CARDIOVASCULAR DISEASE 09/01/18 documented as of this encounter
--- OUTSIDE RECORDS SUMMARY | 2025-05-07 09:11 | XMS_ITS | Encounter Summary ---
Author Organization [facility] Address [address] [place] [address] Care Team Providers Care Scanning Clerk Name Role Phone Akil Chan MD Primary Care Provider [phone] Tyler Brady MD Unavailable [phone] Vinod López DO Primary Care Provider [phone] Encounter Details Date Type Department Care Team (Late st Contact Info) Description 02/16/2019 [employer] Message Enc [facility] at [facility], [facility] [address] [place] [address] Tyler Brady MD [facility]. [facility] [address] [place], [place] [id number] Question Social History Tobacco Use Types Packs/Day [...] Sex Assigned at Female 11/05/2018 3:21 PM HIGH SCHOOL ENGLISH TEACHER Legal Sex Female 6:14 PM CDT Gender Identity Female 11/05/2018 3:21 PM HIGH SCHOOL ENGLISH TEACHER Sexual Orientation Not on file Occupation Industry Job Start Date Job End Date Not on file Not on file Not on file Not on file documented as of this encounter Plan of Treatment Not on file documented as of this encounter Visit Diagnoses Not on filedocumented in this encounter Care Teams Scanning Clerk Relationship Specialty Start Date End Date Akil Chan MD PCP - General INTERNAL MEDICINE 09/01/18 03/15/19 Vinod López DO 2090 [facility] [address] [place] [address] PCP - General INTERNAL MEDICINE 03/16/19 Tyler Brady MD [facility] [address] [place] [address] [place] Resistance Welder CARDIOVASCULAR DISEASE 09/01/18 documented as of this encounter
--- OUTSIDE RECORDS SUMMARY | 2025-05-07 09:11 | XMS_ITS | Encounter Summary ---
Author Organization [facility] Address [address] [place] [address] Care Team Providers Care Budget Counselor Name Role Phone Tyler Brady MD Unavailable [phone] Vinod López DO Primary Care Provider [phone] Encounter Details Date Type Department Care Team (Late st Contact Info) Description 03/19/2019 [employer] Message [facility] at [facility], [facility] [address] [place] [address] Tyler Brady MD [facility]. [facility] [address] [place], [place] [id number] Follow Up/Update Social History Tobacco Use Types [...] Sex Assigned at Female 11/05/2018 3:21 PM GRADES 1 THRU 6 VISITING TEACHER Legal Sex Female 6:14 PM CDT Gender Identity Female 11/05/2018 3:21 PM GRADES 1 THRU 6 VISITING TEACHER Sexual Orientation Not on file Occupation [...] on filedocumented in this encounter Care Teams Budget Counselor Relationship Specialty Start Date End Date Vinod López DO 2089 [facility] [address] [place] [address] PCP - General INTERNAL MEDICINE 03/16/19 Tyler Brady MD [facility] [address] [place] [address] [place] Supervisor Wet Pour CARDIOVASCULAR DISEASE 09/01/18 documented as of this encounter
--- OUTSIDE RECORDS SUMMARY | 2025-05-07 09:11 | XMS_ITS | Referral Summary ---
Author Organization [facility] Address [address] [place] [address] Care Team Providers Care Long Winder Tender Name Role Phone Maribel Vinod DOUGLASS Primary Care Provider [phone] Thanh Alexandre MD, Flash Unavailable [phone] Allergies Active Allergy Reactions Criticality Noted Date [...] by mouth daily. 0 8 Active vit C,Z-Sx-easig-lut ein-zeaxan [id number] zz-wfde-fx-mg capsule Take 1 capsule by mouth 2 [...] on file Legal Sex Female 3:20 AM ASPHALT MIXING MACHINE OPERATOR Gender Identity Female 11/18/2019 4:40 AM ASPHALT MIXING MACHINE OPERATOR Sexual Orientation Straight 11/18/2019 4: 40 AM ASPHALT MIXING MACHINE OPERATOR Last Filed Vital Signs Vital Sign Reading Time Taken Comments Blood Pressure 146/83 01/06/2020 2:08 PM ASPHALT MIXING MACHINE OPERATOR rn notified Pulse 61 01/06/2020 2:08 PM ASPHALT MIXING MACHINE OPERATOR Temperature 36.8 C (98.3 F) 01/06/2020 2:08 PM ASPHALT MIXING MACHINE OPERATOR Respiratory Rate 16 01/06/2020 2:08 PM ASPHALT MIXING MACHINE OPERATOR Oxygen Saturation 97% 01/06/2020 2:0 8 PM ASPHALT MIXING MACHINE OPERATOR Inhaled Oxygen Concentration - - Weight 124 kg (273 lb 6.4 oz) 0 2:08 PM ASPHALT MIXING MACHINE OPERATOR Height 161.3 cm (5' 3.5) 01/06/2020 2: 08 PM ASPHALT MIXING MACHINE OPERATOR Body Mass Index 47.66 01/06/2020 2:08 PM ASPHALT MIXING MACHINE OPERATOR Plan of Treatment Not on file Insurance MEDICARE FOR LIFE MEDICARE FOR LIFE MEDICARE FOR LIFE Care Teams Long Winder Tender Relationship Specialty Start Date End Date Vinod López DO PCP - General Internal Medicine 11/11/19 Flash Law Jr., MD Medical Oncologist/Mandolin Repair Person Medical Oncology 12/14/19
--- OUTSIDE RECORDS SUMMARY | 2025-05-07 09:11 | XMS_ITS | Encounter Summary ---
Author Organization [facility] Address [address] [place] [address] Care Team Providers Care Surgical Attendant Name Role Phone Akil Chan MD Primary Care Provider Tyler Brady MD Unavailable [phone] Vinod López DO Primary Care Provider [phone] Encounter Details Date Type Department Care Team (Late st Contact Info) Description 12/18/2018 MyCScaled Agilet Message Enc [facility] - [address], [address] [place] [id number] Kal Delcid MD [address] [place] [address] [address] [place] [address] Follow Up/Update Social History Tobacco [...] Sex Assigned at Female 11/05/2018 3:21 PM COLLAR SEWER Legal Sex Female 6:14 PM CDT Gender Identity Female 11/05/2018 3:21 PM COLLAR SEWER Sexual Orientation Not on file Occupation Industry Job Start Date Job End Date Not on file Not on file Not on file Not on file documented as of this encounter Plan of Treatment Not on file documented as of this encounter Visit Diagnoses Not on filedocumented in this encounter Care Teams Surgical Attendant Relationship Specialty Start Date End Date Akil Chan MD PCP - General INTERNAL MEDICINE 09/01/18 03/15/19 Vinod López DO [address] [address] PCP - General INTERNAL MEDICINE 03/16/19 Tyler Brady MD [facility] [address] [place] [address] [place] Brand Ambassador Promotional Model CARDIOVASCULAR DISEASE 09/01/18 documented as of this encounter
--- OUTSIDE RECORDS SUMMARY | 2025-05-07 09:11 | XMS_ITS | Encounter Summary ---
Author Organization [facility] Address [address] [place] [address] Care Team Providers Care Real Estate Transaction Manager Name Role Phone Akil Chan MD Primary Care Provider [phone] Tyler Brady MD Unavailable [phone] Vinod López DO Primary Care Provider [phone] Encounter Details Date Type Department Care Team (Late st Contact Info) Description 09/17/2018 Hospital Orders Only [facility] at [facility], [address] [id number] Roger Mcnamara MD [facility]. [address] [address] Social History Tobacco Use Types [...] Assigned at Female 11/05/2018 3:21 PM CERTIFIED DENTAL ASSISTANT Legal Sex Female 6:14 PM CDT Gender Identity Female 11/05/2018 3:21 PM CERTIFIED DENTAL ASSISTANT Sexual Orientation Not on file documented as of this encounter Plan of Treatment Not on file documented as of this encounter Visit Diagnoses Not on filedocumented in this encounter Care Teams Real Estate Transaction Manager Relationship Specialty Start Date End Date Akil Chan MD PCP - General INTERNAL MEDICINE 09/01/18 03/15/19 Vinod López DO [address] [place] [address] [address] [place] [address] PCP - General INTERNAL MEDICINE 03/16/19 Tyler Brady MD [facility] [address] [place] [address] [place] Acid Wash Operator CARDIOVASCULAR DISEASE 09/01/18 documented as of this encounter
--- OUTSIDE RECORDS SUMMARY | 2025-05-07 09:11 | XMS_ITS | Encounter Summary ---
Author Organization [facility] Address [address] [place] [address] Care Team Providers Care Chemical Worker Name Role Phone Akil Chan MD Primary Care Provider [phone] Tyler Brady MD Unavailable [phone] Vinod López DO Primary Care Provider [phone] Encounter Details Date Type Department Care Team (Late st Contact Info) Description 12/18/2018 Woo With Style Message Enc [facility] at [facility], [facility] [address] [place] [address] Tyler Brady MD [facility]. [facility] [address] [place], [place] [id number] Follow Up/Update Social History Tobacco Use Types [...] Sex Assigned at Female 11/05/2018 3:21 PM CAREER GUIDANCE TECHNICIAN Legal Sex Female 6:14 PM CDT Gender Identity Female 11/05/2018 3:21 PM CAREER GUIDANCE TECHNICIAN Sexual Orientation Not on file Occupation Industry Job Start Date Job End Date Not on file Not on file Not on file Not on file documented as of this encounter Progress Notes * Tyler Brady MD - 12/19/2018 6:10 PM CST Hi, I think Mrs. Osorio should see whichever contract agent she is most comfortable seeing and can see the soonest. Thanks ER GUIDANCE TECHNICIAN * Jimena Chapman RN - 12/19/2018 2:15 PM CST The contract agent referral has been in limbo since you [...] from the patient. Forwarded to Dr. Brady. ER GUIDANCE TECHNICIAN documented in this encounter Plan of Treatment Not on file documented as of this encounter Visit Diagnoses Not on filedocumented in this encounter Care Teams Chemical Worker Relationship Specialty Start Date End Date Akil Chan MD PCP - General INTERNAL MEDICINE 09/01/18 03/15/19 Vinod López DO [address] [place] [address] PCP - General INTERNAL MEDICINE 03/16/19 Tyler Brady MD [facility] [address] [place] [address] Eddie It Specialist CARDIOVASCULAR DISEASE 09/01/18 documented as of this encounter
--- OUTSIDE RECORDS SUMMARY | 2025-05-07 09:11 | XMS_ITS | Encounter Summary ---
Author Organization [facility] Address [address] [place] [address] Care Team Providers Care Barrel Lathe Operator Name Role Phone Akil Chan MD Primary Care Provider [phone] Tyler Brady MD Unavailable [phone] Vinod López DO Primary Care Provider [phone] Encounter Details Date Type Department Care Team (Late st Contact Info) Description 11/03/2018 Open Me Message Enc [facility] at [facility], [facility] [address] [place] [address] Tyler Brady MD [facility]. [facility] [address] [place] [address] Follow Up/Update Social History Tobacco [...] Sex Assigned at Female 11/05/2018 3:21 PM MACHINE PLATE STACKER Legal Sex Female 6:14 PM CDT Gender Identity Female 11/05/2018 3:21 PM MACHINE PLATE STACKER Sexual Orientation Not on file Occupation Industry Job Start Date Job End Date Not on file Not on file Not on file Not on file documented as of this encounter Plan of Treatment Not on file documented as of this encounter Visit Diagnoses Not on filedocumented in this encounter Care Teams Barrel Lathe Operator Relationship Specialty Start Date End Date Akil Chan MD PCP - General INTERNAL MEDICINE 09/01/18 03/15/19 Vinod López DO [facility] [address] [place] [address] PCP - General INTERNAL MEDICINE 03/16/19 Tyler Brady MD [facility] [address] [place] [address] [place] Ship Washer CARDIOVASCULAR DISEASE 09/01/18 documented as of this encounter
--- NOTE | 2025-05-07 09:19 | ECG_ITS ---
Test Date: 2025-05-07 09:31:22 Measurements Intervals [place] Rate: 91 P: 52 MN: 150 QRS: 3 QRSD: 112 T: 255 QT: 441 QTc: 544 Interpretive Statements SINUS RHYTHM INCOMPLETE RIGHT BUNDLE BRANCH BLOCK [90+ ms QRS DURATION, TERMINAL R IN V1/V2, 40+ ms S IN I/aVL/V4/V5/V6] ST DEVIATION AND MODERATE T-WAVE ABNORMALITY, CONSIDER ANTEROLATERAL ISCHEMIA [-0.1+ mV T-WAVE IN V3-V6] ST DEVIATION AND MODERATE T-WAVE ABNORMALITY, CONSIDER INFERIOR ISCHEMIA [-0.1+ mV T-WAVE IN II/aVF] Compared to ECG 04/05/2025 09:16:39 no change compared to prior EKG Electronically Signed On 05-07-2025 12:52:52 CDT by Tre Herrera M.D.
[2025-05-07 09:36] LABS: Hematocrit 36.6 % (37.0-47.0); Hemoglobin 10.7 g/dL (12.0-15.0); Immature Granulocyte Percent A 0.7 % (0-0.5); Lymphocytes Absolute Auto 0.57 K/mm3 (0.9-3.2); Mean Corpuscular HGB Conc 29.2 g/dl (32-36); Mean Corpuscular Hemoglobin 23.3 pg (26-34); Mean Corpuscular Volume 79.7 fl (80-100); Nucleated Red Blood Cells Absolute Auto 0.000 K/mm3 (0.0-0.012); Nucleated Red Blood Cells Perc 0.0 % (0.0-0.2); Platelet Count Result 205 k/mm3 (150-375); Red Blood Count 4.59 M/mm3 (4.2-5.4); White Blood Count 12.4 K/mm3 (4.5-10.0)
--- NOTE | 2025-05-07 09:38 | ED_ITS ---
HPI - Extremity Problem General Chief complaint: Extremity Problem,Nontraumatic Stated complaint: LEG SWELLING,OOZING,COUGH,HX CHF Time Seen by Provider: 05/07/25 09:12 Source: patient and old records reviewed Mode of arrival: ambulatory Limitations: no limitations History of Present Illness HPI Narrative: Patient is a 79-year-old female, with PMH of CHF, DM, HTN, AFIB on xarelto, who presents the ED with report of shortness of breath, bilateral lower extremity swelling. Patient reports she was recently admitted to the hospital here from 04/05-/04/08 for CHF exacerbation. She is Bumex 2 mg b.i.d. for diuresis, was given additional Lasix while in the hospital. She began having increased swelling throughout her bilateral lower extremities and shortness of breath on Saturday. She contact her PCP for this, was given a three-day course of metolazone 2.5 mg. She states this did help with her swelling, but she is still having fairly significant swelling throughout her lower extremities. She is still feeling short of breath. Also reports persistent dry cough. She also reports she was recently diagnosed with a urinary tract infection, started on Macrobid. Reports she is still having urinary frequency/urgency. Denies hematuria. Denies chest pain, fevers. Related Data Home Medications ?Medication ?Instructions ?Recorded ?Confirmed ?Last Taken ?Type metoprolol tartrate 50 mg tablet 50 mg PO Q12H 10/14/19 05/07/25 05/06/25 History rivaroxaban 20 mg tablet (Xarelto) 20 mg PO DAILY 10/14/19 05/07/25 05/06/25 History vitamins A,C,L-zxqi-ckawql 4,296 1 cap PO BID 11/08/20 05/07/25 05/06/25 History mcg-226 mg-90 mg capsule (PreserVision AREDS) acetaminophen 650 mg 1,300 mg PO Q12H pain 05/05/22 05/07/25 04/04/25 History tablet,extended release bumetanide 2 mg tablet 2 mg PO BID 11/17/24 05/07/25 05/06/25 History ferrous sulfate 325 mg (65 mg 325 mg PO DAILY 05/07/25 05/07/25 05/06/25 History iron) tablet (FeroSul) metolazone 2.5 mg tablet 2.5 mg PO DAILY 05/07/25 05/07/25 05/06/25 History nitrofurantoin 100 mg PO Q12H 05/07/25 05/07/25 05/06/25 History monohydrate/macrocrystals 100 mg capsule potassium chloride 20 mEq 20 meq PO BID 05/07/25 05/07/25 05/06/25 History tablet,extended release Allergies Allergy/AdvReac Type Severity Reaction Status Date / Time Sulfa (Sulfonamide Allergy Intermediate Rash Verified 05/07/25 12:13 Antibiotics) nitrofurantoin (From Allergy itching Verified 05/07/25 12:13 Macrobid) Review of Systems 2 Review of Systems: All systems reviewed & are unremarkable except as noted in HPI. All systems reviewed & are unremarkable except as noted in HPI and below PMFSH Past Medical History Medical History Chronic anemia Pulmonary hypertension Diastolic heart failure Echocardiogram June 2024: Difficult study with LVH, EF of 50 55%, grade 1 diastolic dysfunction and moderate left atrial enlargement with mild pulmonary hypertension Other hyperlipidemia Restless leg syndrome History of sarcoidosis Hx of arteriovenous malformation (AVM) Iron deficiency anemia CARLOS (obstructive sleep apnea) Intolerant to CPAP Post-menopausal Paroxysmal atrial fibrillation Depression Colonoscopy planned Gastro-esophageal reflux Type 2 diabetes mellitus Hypothyroidism Essential hypertension Surgical History Surgical History Status post cataract extraction of both eyes with insertion of intraocular lens History of right shoulder replacement History of toe surgery History of arthroscopy of knee Family History Family History Mother Family history of lung cancer Family history of lung disease Father Family history of arthritis Family history of heart disease in male family member before age 55 Family history of cardiovascular disease Sibling Family history of malignant neoplasm of breast in first degree relative Carcinoma of colon Breast cancer Daughter Breast cancer Social History Social History Social History: [facility]. She is a lifelong nonsmoker and denies any history of alcohol use. Her and her raised 1 son and 4 daughters. 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 Code status: DNR/DNI (per patient request) Healthcare power of trial attorney: Patricia (daughter) Smoking status: Never smoker Second hand tobacco smoke exposure: No Alcohol intake: never Substance use: never Substance use type: does not use Do You Feel Safe in your Home?: Yes Lack of Transportation: No Lack of Food: Never True Current Housing: I Have Housing Concerned About Future Housing: No Difficulty Paying Gas/Electric Bills: No Difficulty Paying for Meds: No Currently Unemployed: No Education: Bachelor's Degree Difficulty w/ Childcare or Family Care: No Living arrangements: [facility] Occupation/Education: retired 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 HEAD: Normocephalic, atraumatic. RESPIRATORY: Airway patent, respirations nonlabored. Decreased lung sounds in bases bilaterally, rhonchi throughout bases. Frequent coughing on exam. CARDIOVASCULAR: Regular rate and rhythm without murmurs, rubs, or gallops. ABDOMINAL: Soft, nontender, nondistended. Normoactive BS. MUSCULOSKELETAL: Moves all extremities. No gross deformities. 1 to 2+ pitting edema bilateral lower extremities. No significant weeping. No significant calf tenderness. SKIN: Warm, dry, normal color. NEURO: A&O X3. Speech clear. Cranial nerves II-XII grossly intact. No ataxic movements. PSYCHIATRIC: Appropriate mood and affect. Normal interaction. Course Vital Signs Vital signs: Vital Signs Temperature 98.4 F 05/07/25 09:10 Pulse Rate 94 05/07/25 09:10 Respiratory Rate 23 H 05/07/25 09:10 Blood Pressure 111/68 05/07/25 09:10 Pulse Oximetry 91 05/07/25 09:10 Oxygen Delivery Room Air 05/07/25 09:10 Temperature 98.4 F 05/07/25 09:10 Pulse Rate 94 05/07/25 10:59 Respiratory Rate 20 05/07/25 10:59 Blood Pressure 110/68 05/07/25 10:59 Pulse Oximetry 97 05/07/25 10:59 Oxygen Delivery Nasal Cannula 05/07/25 10:45 Oxygen Flow Rate 2 05/07/25 10:45 MDM - Extremity (Nontraumatic) MDM Narrative Medical decision making narrative: Patient presented to ED with shortness of breath, bilateral lower extremity swelling, concern for UTI. History of CHF, recent hospitalization for exacerbation. Vital signs are stable upon arrival. Patient in no acute distress. EKG with sinus rhythm, right bundle, nonspecific ST changes. Patient is denying chest pain at this time. Troponin undetectable. BNP nearly 3000. Patient does appear fluid overloaded. Chest x-ray with pulmonary vascular congestion. No other acute findings. Consistent with acute CHF. Given dose of IV Lasix in the ED. Remainder of laboratory studies notable for leukocytosis of 12.4. H&H is stable. CMP with potassium low at 2.8. Likely related to recent increased diuresis. 40 mEq of IV and p.o. potassium ordered. Mag was borderline at 1.6. IV replacement ordered for this as well. UA appears consistent with infection, 2+ leuk esterase, 21-50 WBC. Sent for culture. Will treat. Patient has been on Macrobid for the last few days and denied improvement. Rocephin started in the ED. Echo from 04/05/25: Shows LVEF of 60-65%, grade 1 diastolic dysfunction, severe pulmonary hypertension. Patient will be admitted for further diuresis, potassium replacement, management of UTI. Discussed case with Dr. Fitzpatrick, hospitalist, accepted patient for admission. Patient in agreement with plan. Medical Records Attestation: I reviewed the patient's medical records. Lab Data Attestation: I reviewed the patient's lab results. 05/07/25 09:28 05/07/25 09:28 Labs: Lab Results 05/07/25 Range/Units 09:28 WBC 12.4 H (4.5-10.0) K/mm3 RBC 4.59 (4.2-5.4) M/mm3 Hgb 10.7 L (12.0-15.0) g/dL Hct 36.6 L (37.0-47.0) % MCV 79.7 L (80-100) fl MCH 23.3 L (26-34) pg MCHC 29.2 L (32-36) g/dl RDW 19.3 H (11.5-14.5) % Plt Count 205 (150-375) k/mm3 MPV 10.0 (7.4-10.4) fl Immature Gran % (Auto) 0.7 H (0-0.5) % Neut % (Auto) 89.4 H (45.5-73.1) % Lymph % (Auto) 4.6 L (18.3-44.2) % [place]berry % (Auto) 4.3 (2.6-8.5) % Eos % (Auto) 0.6 (0-4.4) % Baso % (Auto) 0.4 (0.2-1.2) % Lymph # (Auto) 0.57 L (0.9-3.2) K/mm3 [place]berry # (Auto) 0.5 (0.1-0.6) K/mm3 Eos # (Auto) 0.1 (0-0.3) K/mm3 Baso # (Auto) 0.1 (0.0-0.1) K/mm3 Abs Immat Gran (auto) 0.09 H (0.00-0.031) K/mm3 Absolute Neuts (auto) 11.1 H (1.3-6.7) K/mm3 Absolute Nucleated RBC 0.000 (0.0-0.012) K/mm3 Band Neutrophils % Not Reportable Nucleated RBC % 0.0 (0.0-0.2) % Platelet Estimate Adequate (Adequate) Hypochromasia 2+ Anisocytosis 2+ Stomatocytes 1+ Schistocytes None seen PT 20.9 H (11.1-14.7) Seconds INR 1.8 APTT 36.1 (22.3-36.8) Seconds Sodium 137 (137-145) mmol/L Potassium 2.8 L* (3.4-5.0) mmol/L Chloride 92 L (98-107) mmol/L Carbon Dioxide 33 H (22-30) mmol/L Anion Gap 12 (4-12) mmol/L BUN 13 (7-17) mg/dL Creatinine 0.91 (0.7-1.0) mg/dL Estim Creat Clear Calc 51 ml/min Estimated GFR 60 (59 - ) Glucose 133 H (65-110) mg/dL Calcium 9.0 (8.4-10.2) mg/dL Magnesium 1.6 (1.6-2.3) mg/dL Total Bilirubin 0.9 (0.2-1.3) mg/dL AST 32 (14-36) U/L ALT 19 (6-35) U/L Alkaline Phosphatase 92 (38-126) U/L Troponin I < 0.012 (0.000-0.034) ng/mL NT-Pro-B Natriuret Pep 2980 H (19.9-100) pg/mL Total Protein 8.1 (6.3-8.2) g/dL Albumin 4.1 (3.5-5.1) g/dL Urine Color Yellow (Yellow) Urine Appearance Cloudy H (Clear) Urine pH 5.5 (5.0-9.0) Ur Specific Richardson 1.016 (1.001-1.035) Urine Protein Trace (Negative) mg/dL Urine Glucose (UA) Negative (Negative) mg/dL Urine Ketones Trace H (Negative) mg/dL Ur Blood (Man) Negative (Negative) Urine Nitrate Negative (Negative) Urine Bilirubin Negative (Negative) Urine Urobilinogen 1.0 (<2.0) mg/dL Add Ur Microanalysis Reviewed Leukocyte Esterase Rfl 2+ H (Negative) JAMIN/UL Urine RBC 0-2 (0-2) /hpf Urine WBC 21-50 H (0-3) /hpf Ur Squamous Epith Cells None seen (Few) /hpf Urine Bacteria None seen /hpf Urine Casts 11-20 Hyaline Casts Present (None) /lpf Imaging Data Attestation: I personally reviewed and interpreted this imaging study as follows: Radiologist's impression: ITS Impressions Chest X-Ray 05/07/25 10:13 IMPRESSION: Mild pulmonary vascular congestion, without focal infiltrate or effusion. ECG Data EKG #1: Attestation EKG: I personally reviewed and interpreted this ECG as follows: ECG completion date: 05/07/25 ECG completion time: 09:31 EKG Interpretation: normal rate (91), sinus rhythm, non-specific ST changes and RBBB (Incomplete) Discharge Plan Discharge Clinical Impression: Hypokalemia Acute CHF (congestive heart failure) Qualifiers: Heart failure type: combined systolic and diastolic Qualified Code(s): I50.41 - Acute combined systolic (congestive) and diastolic (congestive) heart failure UTI (urinary tract infection) Qualifiers: Urinary tract infection type: acute cystitis Hematuria presence: without hematuria Qualified Code(s): N30.00 - Acute cystitis without hematuria Patient Disposition: Still a Patient Condition: Stable
[2025-05-07 09:51] LABS: INR 1.8; Prothrombin Time 20.9 Seconds (11.1-14.7)
[2025-05-07 09:52] LABS: Add Urine Microscopic? YES; Appearance Urine Cloudy (Clear); Glucose Urine UA Negative (Negative); Leukocyte Esterase Ur 2+ LEU/UL (Negative); Need Manual Microscopic Reviewed; Nitrate Urine Negative (Negative); Partial Thromboplastin Time 36.1 Seconds (22.3-36.8); Specific Grav Ur 1.016 (1.001-1.035)
[2025-05-07 09:56] LABS: Anisocytosis 2+; Hypochromasia 2+; Schistocytes None Seen; Stomatocytes 1+
[2025-05-07 10:16] LABS: Alanine Aminotransferase 19 U/L (6-35); Albumin Level 4.1 g/dL (3.5-5.1); Alkaline Phosphatase 92 U/L (38-126); Anion Gap 12 mmol/L (4-12); Aspartate Amino Transferase 32 U/L (14-36); Bilirubin,Total 0.9 mg/dL (0.2-1.3); Blood Urea Nitrogen 13 mg/dL (7-17); Calcium 9.0 mg/dL (8.4-10.2); Carbon Dioxide 33 mmol/L (22-30); Chloride 92 mmol/L (98-107); Estimated CRCL calculation 51 ml/min; Estimated Glomerular Filt Rate 60; Glucose 133 mg/dL (65-110); NT Pro B Type Natriuretic Pept 2980 pg/mL (19.9-100); Potassium 2.8 mmol/L (3.4-5.0); Sodium 137 mmol/L (137-145); Total Protein 8.1 g/dL (6.3-8.2); Troponin I < 0.012 ng/mL (0.000-0.034)
[2025-05-07 10:39] LABS: Magnesium 1.6 mg/dL (1.6-2.3)
[2025-05-07] MEDS: POTASSIUM CHLORIDE INJ 40 MEQ in SODIUM CHLORIDE 0.9% IV 500 ML 130 MEQ IVPB ×2 (10:42→22:54)
[2025-05-07] MEDS: POTASSIUM CHLORIDE 20 MEQ ER TABLET 40 MEQ PO (10:44)
[2025-05-07] MEDS: MAGNESIUM SULF 2 GM/WATER 50ML 2 GM/50 ML BAG IVPB (10:58)
[2025-05-07] MEDS: FUROSEMIDE INJ 40 MG/4 ML VIAL IV PUSH ×2 (11:25→21:25)
--- NOTE | 2025-05-07 12:05 | ADMGEN ---
This patient, Nikole Osorio, was admitted to Medical Room 248-. Patient/family oriented to hospital policies and general routines including ID bracelet, bed and alarms, visiting hours, pain management, procedures, bathroom and other care routines, personal items, smoking policy, room service/diet, and visiting hours. Information on how to activate the Rapid Response Team has been discussed. Patient/Family are encouraged to report perceived risks to care and to ask questions if they do not understand what they are told or what they should do.
--- NOTE | 2025-05-07 12:17 | P.HP_ITS ---
H&P: HPI History of Present Illness Date/Time: 05/07/25 12:17 Chief Complaint: Lower extremity swelling Narrative: 79-year-old female past medical history of diastolic heart failure, pulmonary hypertension, iron deficiency anemia, sleep apnea, atrial fibrillation, and diabetes type 2 presents the hospital with lower extremity swelling. Patient has a increased swelling of shortness of breath since Saturday. She states that she was recently hospitalized at the beginning of April for CHF exacerbation. Patient's echocardiogram on 04/05/2025 showed EF of 60-65% with grade 1 diastolic dysfunction. Cardiology was not consulted last hospital admission. While patient was in hospital she was taking Lasix however she was not discharged on any additional diuretics. She is compliant with her home diuretics. Lab work shows leukocytosis at 12.4, hemoglobin of 10.7 which was higher than last hospitalization, potassium of 2.8, BNP of 2980, urine is cloudy negative for nitrates positive for leukocyte esterase, 21-50 wbc's, chest x-ray shows mild pulmonary congestion. EKG shows sinus rhythm with incomplete right bundle- branch block. Patient received 40 mg of Rocephin, Lasix and 80 mg of p.o. and IV potassium. Review of Systems Review of Systems: 12 systems were reviewed and are negativ e except for as per HPI. [facility] Past Medical History Medical History Chronic anemia Pulmonary hypertension Diastolic heart failure Echocardiogram June 2024: Difficult study with LVH, EF of 50 55%, grade 1 diastolic dysfunction and moderate left atrial enlargement with mild pulmonary hypertension Other hyperlipidemia Restless leg syndrome History of sarcoidosis Hx of arteriovenous malformation (AVM) Iron deficiency anemia CARLOS (obstructive sleep apnea) Intolerant to CPAP Post-menopausal Paroxysmal atrial fibrillation Depression Colonoscopy planned Gastro-esophageal reflux Type 2 diabetes mellitus Hypothyroidism Essential hypertension Surgical History Surgical History Status post cataract extraction of both eyes with insertion of intraocular lens History of right shoulder replacement History of toe surgery History of arthroscopy of knee Family History Family History Mother Family history of lung cancer Family history of lung disease Father Family history of arthritis Family history of heart disease in male family member before age 55 Family history of cardiovascular disease Sibling Family history of malignant neoplasm of breast in first degree relative Carcinoma of colon Breast cancer Daughter Breast cancer Social History Social History Social History: Patient moved to [facility] March 2025. She is a lifelong nonsmoker and denies any history of alcohol use. Her and her raised 1 son and 4 daughters. 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 Code status: DNR/DNI (per patient request) Healthcare power of automation and controls supervisor: Patricia (daughter) Smoking status: Never smoker Second hand tobacco smoke exposure: No Alcohol intake: never Substance use: never Substance use type: does not use Do You Feel Safe in your Home?: Yes Lack of Transportation: No Lack of Food: Never True Current Housing: I Have Housing Concerned About Future Housing: No Difficulty Paying Gas/Electric Bills: No Difficulty Paying for Meds: No Currently Unemployed: No Education: Bachelor's Degree Difficulty w/ Childcare or Family Care: No Living arrangements: 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 Gender identity (if verbalized by the patient): Female Spiritual care concerns: No Meds Home Medications and Allergies Home Medications ?Medication ?Instructions ?Recorded ?Confirmed ?Type metoprolol tartrate 50 mg tablet 50 mg PO Q12H 10/14/19 05/07/25 History rivaroxaban 20 mg tablet (Xarelto) 20 mg PO DAILY 10/14/19 05/07/25 History vitamins A,C,O-utwn-dukkkd 4,296 1 cap PO BID 11/08/20 05/07/25 History mcg-226 mg-90 mg capsule (PreserVision AREDS) acetaminophen 650 mg 1,300 mg PO Q12H pain 05/05/22 05/07/25 History tablet,extended release tramadol 50 mg tablet 50 mg PO QHS PRN pain #30 tabs 11/21/23 05/07/25 Rx gabapentin 600 mg tablet 600 mg PO TID #270 tabs 09/03/24 05/07/25 Rx metformin 500 mg tablet 500 mg PO BID #180 tabs 11/05/24 05/07/25 Rx bumetanide 2 mg tablet 2 mg PO BID 11/17/24 05/07/25 History levothyroxine 125 mcg tablet See Rx Instructions .Route 11/30/24 05/07/25 Rx .COMPLEX #90 tabs rosuvastatin 10 mg tablet (Crestor) 10 mg PO DAILY #90 tabs 11/30/24 05/07/25 Rx fluoxetine 20 mg capsule (Prozac) 40 mg (2 x 20 mg) PO DAILY #180 12/17/24 Rx caps pramipexole 1 mg tablet 1 mg PO TID #270 tabs 02/09/25 05/07/25 Rx omeprazole 20 mg capsule,delayed 20 mg PO BID #180 caps 02/18/25 05/07/25 Rx release ferrous sulfate 325 mg (65 mg 325 mg PO DAILY 05/07/25 05/07/25 History iron) tablet (FeroSul) metolazone 2.5 mg tablet 2.5 mg PO DAILY 05/07/25 05/07/25 History nitrofurantoin 100 mg PO Q12H 05/07/25 05/07/25 History monohydrate/macrocrystals 100 mg capsule potassium chloride 20 mEq 20 meq PO BID 05/07/25 05/07/25 History tablet,extended release Allergies Allergy/AdvReac Type Severity Reaction Status Date / Time Sulfa (Sulfonamide Allergy Intermediate Rash Verified 05/07/25 12:13 Antibiotics) nitrofurantoin (From Allergy itching Verified 05/07/25 12:13 Macrobid) Vital Signs Vital Signs - 24 hr 05/07/25 09:10 05/07/25 10:45 05/07/25 10:45 Temperature 98.4 F Pulse Rate 94 84 Respiratory Rate 23 H 16 Blood Pressure 111/68 113/86 Pulse Oximetry 91 98 98 Oxygen Delivery Room Air Nasal Cannula Oxygen Flow Rate 2 05/07/25 10:59 Temperature Pulse Rate 94 Respiratory Rate 20 Blood Pressure 110/68 Pulse Oximetry 97 Oxygen Delivery Oxygen Flow Rate Exam Narrative: General: well appearing, appears stated age. HEENT: normocephalic, atraumatic. Mucous membranes moist. EOMI, PERRLA, bilateral sclera anicteric, no conjunctival injection. Neck supple without JVD, lymphadenopathy, or bruit. Respiratory: Rhonchi to ascultation bilaterally. Wet cough Cardiovascular: Regular rate and rhythm, normal S1-S2 upon ascultation. No m urmurs, rubs, or clicks. PMI is nondisplaced, capillary refill less than 3 second. Abdomen: Soft, round, no pulsatile masses, nondistended and nontender. No rebound, no guarding. No CVA tenderness, no hepatosplenomegaly. Bowel sounds present to all four quadrants. No high pitch or tinkling sounds, resonant to percussion. Extremities: No cyanosis, clubbing, Pulses are palpable 2/2. Active ROM to all four extremities. 2+ edema Neuro: Alert and orientated x 4. PERRLA. Cranial nerves 2-12 intact without focal deficit. Skin: Warm, dry, and intact, without rash, erythema, or lesion. Psych: pleasant, cooperative, normal speech, normal affect, no hallucinations, no dysarthia H&P: Results Labs Labs: Short CBC 05/07/25 Range/Units 09:28 WBC 12.4 H (4.5-10.0) K/mm3 Hgb 10.7 L (12.0-15.0) g/dL Hct 36.6 L (37.0-47.0) % Plt Count 205 (150-375) k/mm3 BMP 05/07/25 09:28 Sodium 137 Potassium 2.8 L* Chloride 92 L Carbon Dioxide 33 H BUN 13 Creatinine 0.91 Glucose 133 H Calcium 9.0 Cardiac Enzymes 05/07/25 Range/Units 09:28 Troponin I < 0.012 (0.000-0.034) ng/mL Liver Function 05/07/25 Range/Units 09:28 Total Bilirubin 0.9 (0.2-1.3) mg/dL AST 32 (14-36) U/L ALT 19 (6-35) U/L Alkaline Phosphatase 92 (38-126) U/L Albumin 4.1 (3.5-5.1) g/dL Urine 05/07/25 Range/Units 09:28 Urine Color Yellow (Yellow) Urine Appearance Cloudy H (Clear) Urine pH 5.5 (5.0-9.0) Ur Specific [place] 1.016 (1.001-1.035) Urine Protein Trace (Negative) mg/dL Urine Glucose (UA) Negative (Negative) mg/dL Assessment and Plan Assessment and plan (1) Acute exacerbation of chronic heart failure: Code(s): I50.9 - Heart failure, unspecified Status: Acute Assessment and Plan: This is patient's 2nd CHF exacerbation in 30 days Echo on 04/05/2025 EF 60-65% Cardiology consulted Currently holding home diuretics of Bumex and metolazone IV Lasix Fluid restriction Repeat potassium 2.9, another 40 mEq of IV potassium given and repeat 3.0 will repeat another 40 mg of IV potassium with sodium in morning Will hold off on more diuretics till after potassium is replaced Daily weights (2) Acute hypokalemia: Code(s): E87.6 - Hypokalemia Status: Acute Assessment and Plan: Patient received 40 IV and 40 p.o. in the emergency room Repeat potassium 2.9, another 40 mEq of IV potassium given and repeat 3.0 will repeat another 40 mg of IV potassium with sodium in morning (3) Type 2 diabetes mellitus: Qualifiers: Diabetes mellitus complication status: without complication Diabetes mellitus prison insulin use: without prison use Qualified Code(s): E11.9 - Type 2 diabetes mellitus without complications Code(s): E11.9 - Type 2 diabetes mellitus without complications Status: Acute Assessment and Plan: Hold home metformin while in hospital [facility] Star-Bertha platt (4) Chronic anemia: Code(s): D64.9 - Anemia, unspecified Status: Acute Assessment and Plan: No signs of acute bleeding Hemoglobin above baseline likely delusional Quality VTE Prophylaxis VTE prophylaxis: mechanical ordered and pharmacologic ordered Hospitalist MIPS Advance Care Plan I have confirmed that the patient's Advanced Care Plan is present, code status is documented, or surrogate decision maker is listed in patient medical record.: Yes Medication Reconciliation I have utilized all available resources to obtain, update and review the patients current medications (includes all prescriptions, OTC, herbals, cannabis, and nutritional supplements).: Yes
[2025-05-07] MEDS: GABAPENTIN 300 MG CAPSULE 600 MG PO ×2 (13:18→17:25)
[2025-05-07 15:27] LABS: Potassium 2.9 mmol/L (3.4-5.0)
[2025-05-07] MEDS: POTASSIUM CHLORIDE 20 MEQ PACKET (FOR LIQUID) 40 MEQ PO (17:25)
[2025-05-07 22:17] LABS: Potassium 3.0 mmol/L (3.4-5.0)
[2025-05-08] VITALS (17 sets, daily range): BP systolic 107–122; BP diastolic 55–78; PULSE 77–133; RESP 16–18; TEMP 36.4; O2SAT 89–100
[2025-05-08 05:18] LABS: Hematocrit 36.5 % (37.0-47.0); Hemoglobin 10.6 g/dL (12.0-15.0); Immature Granulocyte Percent A 0.5 % (0-0.5); Lymphocytes Absolute Auto 0.84 K/mm3 (0.9-3.2); Mean Corpuscular HGB Conc 29.0 g/dl (32-36); Mean Corpuscular Hemoglobin 23.8 pg (26-34); Mean Corpuscular Volume 81.8 fl (80-100); Nucleated Red Blood Cells Absolute Auto 0.000 K/mm3 (0.0-0.012); Nucleated Red Blood Cells Perc 0.0 % (0.0-0.2); Platelet Count Result 208 k/mm3 (150-375); Red Blood Count 4.46 M/mm3 (4.2-5.4); White Blood Count 9.8 K/mm3 (4.5-10.0)
[2025-05-08 05:30] LABS: Anion Gap 8 mmol/L (4-12); Blood Urea Nitrogen 12 mg/dL (7-17); Calcium 9.0 mg/dL (8.4-10.2); Carbon Dioxide 35 mmol/L (22-30); Chloride 95 mmol/L (98-107); Estimated CRCL calculation 51 ml/min; Estimated Glomerular Filt Rate 59; Glucose 110 mg/dL (65-110); Potassium 3.6 mmol/L (3.4-5.0); Sodium 138 mmol/L (137-145)
[2025-05-08 05:41] LABS: Anisocytosis 1+; Ovalocytes 1+; Schistocytes None Seen
[2025-05-08] MEDS: LEVOTHYROXINE SODIUM 125 MCG TABLET BY MOUTH (06:06)
--- NOTE | 2025-05-08 07:05 | P.PNIM_ITS ---
Progress Note: A&P Assessment and Plan (1) Acute exacerbation of chronic heart failure: Code(s): I50.9 - Heart failure, unspecified Status: Acute Assessment and Plan: * This is patient's 2nd CHF exacerbation in 30 days * Echo on 04/05/2025 EF 60-65% * Currently holding home diuretics of Bumex and metolazone * IV Lasix, fluid restriction * Repeat potassium 2.9, another 40 mEq of IV potassium given and repeat 3.0 will repeat another 40 mg of IV potassium with sodium in morning * Will hold off on more diuretics till after potassium is replaced * Daily weights * Cardiology consulted, appreciate further recommendations * Lasix 40mg IV BID, switch to Bumex 2mg BID tomorrow * Upon d/c - up titrate diuretic and + metolazone 2.5mg daily * KCl 40meq daily (2) Acute hypokalemia: Code(s): E87.6 - Hypokalemia Status: Acute Assessment and Plan: * Patient received 40 IV and 40 p.o. in the emergency room * Repeat potassium 2.9, another 40 mEq of IV potassium given and repeat 3.0 will repeat another 40 mg of IV potassium with sodium in morning * 05/08: K 3.6 (3) Type 2 diabetes mellitus: Qualifiers: Diabetes mellitus complication status: without complication Diabetes mellitus group home insulin use: without manager terminal use Qualified Code(s): E11.9 - Type 2 diabetes mellitus without complications Code(s): E11.9 - Type 2 diabetes mellitus without complications Status: Acute Assessment and Plan: * Hold home metformin while in hospital * SSI * Star-Bertha [email or web address] HS (4) Chronic anemia: Code(s): D64.9 - Anemia, unspecified Status: Acute Assessment and Plan: * No signs of acute bleeding * Hemoglobin above baseline likely delusional * 05/08 Hgb 10.6 (5) Abnormal chest xray: Code(s): R93.89 - Abnormal findings on diagnostic imaging of other specified body structures Status: Acute Assessment and Plan: * Chest XR 05/08: Asymmetry of the right superior mediastinum, for which noncontrast enhanced CT examination of the chest is suggested (if the patient is clinically able) nonemergency for further evaluation. Otherwise: Mild pulmonary vascular congestion, without focal infiltrate or effusion. * Pt is stable but likely to require several day hospitalization - Will obtain Chest CT today for further eval Subjective Date/time seen: 05/08/25 07:05 Interval history: 79-year-old female past medical history of diastolic heart failure, pulmonary hypertension, iron deficiency anemia, sleep apnea, atrial fibrillation, and diabetes type 2 presents the hospital with lower extremity swelling. 05/08/2025 Patient is sitting comfortably in bed at time of exam. At this time, denies any cp, sob, n/v, lower ext swelling or abd pain/swelling. She states that since her admission, her symptoms have almost completely subsided. Cardiology consulted, rec 40mg IV Lasix BID, switch to Bumex 2mg BID tomorrow and to uptitrate her at home dose upon d/c and to add metolazone 2.5mg daily. CXR showed mild pulm congestion, w/o infiltrate or effusion. It also showed asymmetry of R sup mediastinum - will obtain Chest CT for further eval. No other complaints or concerns at this time. Review of Systems Review of Systems: 12 systems were reviewed and are negativ e except for as per HPI. Exam Narrative: General: well appearing, appears stated age. HEENT: normocephalic, atraumatic. Mucous membranes moist. EOMI, PERRLA, bilateral sclera anicteric, no conjunctival injection. Neck supple without JVD, lymphadenopathy, or bruit. Respiratory: Rhonchi to ascultation bilaterally. Wet cough Cardiovascular: Regular rate and rhythm, normal S1-S2 upon ascultation. No murmurs, rubs, or clicks. PMI is nondisplaced, capillary refill less than 3 second. Abdomen: Soft, round, no pulsatile masses, nondistended and nontender. No rebound, no guarding. No CVA tenderness, no hepatosplenomegaly. Bowel sounds present to all four quadrants. No high pitch or tinkling sounds, resonant to percussion. Extremities: No cyanosis, clubbing, Pulses are palpable 2/2. Active ROM to all four extremities. 2+ edema Neuro: Alert and orientated x 4. PERRLA. Cranial nerves 2-12 intact without focal deficit. Skin: Warm, dry, and intact, without rash, erythema, or lesion. Psych: pleasant, cooperative, normal speech, normal affect, no hallucinations, no dysarthia Objective Data Vital Signs Vital Signs: Vital Signs - 24 hr 05/07/25 09:10 05/07/25 10:45 05/07/25 10:45 Temperature 98.4 F Pulse Rate 94 84 Respiratory Rate 23 H 16 Blood Pressure 111/68 113/86 Pulse Oximetry 91 98 98 Oxygen Delivery Room Air Nasal Cannula Oxygen Flow Rate 2 05/07/25 10:59 05/07/25 12:48 05/07/25 14:00 Temperature 97.4 F L Pulse Rate 94 84 Respiratory Rate 20 18 Blood Pressure 110/68 100/48 L Pulse Oximetry 97 97 98 Oxygen Delivery Nasal Cannula Oxygen Flow Rate 2 05/07/25 16:00 05/07/25 20:00 05/07/25 20:00 Temperature Pulse Rate 79 79 Respiratory Rate Blood Pressure Pulse Oximetry 100 Oxygen Delivery Nasal Cannula Oxygen Flow Rate 2 05/07/25 21:31 05/07/25 22:09 05/07/25 22:45 Temperature 97.7 F Pulse Rate 76 Respiratory Rate 16 Blood Pressure 102/63 Pulse Oximetry 98 100 Oxygen Delivery Nasal Cannula Oxygen Flow Rate 2 05/08/25 00:00 05/08/25 04:00 05/08/25 05:46 Temperature 97.6 F Pulse Rate 77 82 89 Respiratory Rate 16 Blood Pressure 112/70 Pulse Oximetry 100 Oxygen Delivery Oxygen Flow Rate Intake/Output Intake/Output: Intake & Output 05/05/25 05/06/25 05/07/25 05/08/25 23:59 23:59 23:59 23:59 Intake Total 1130 960 Output Total 900 1000 Balance 230 -40 Meds/Results Medications: Active Medications Generic Name Dose Route Start Last Admin Trade Name Freq PRN Reason Stop Dose Admin Acetaminophen 650 mg 05/07/25 11:21 Acetaminophen 325 Mg Tablet PO Q4H PRN Mild Pain (1-3) or Fever Dextrose 12.5 gm 05/07/25 11:21 Dextrose 50% 25 Gm/50 Ml Syringe IV PUSH PRN PRN Hypoglycemia Protocol Dextrose 12.5 gm 05/07/25 12:28 Dextrose 50% 25 Gm/50 Ml Syringe IV PUSH PRN PRN Hypoglycemia Protocol Ferrous Sulfate 325 mg 05/08/25 09:00 Ferrous Sulfate [address] PO DAILY KERLINE Fluoxetine HCl 40 mg 05/07/25 12:25 05/07/25 13:18 Fluoxetine Hcl 20 Mg Capsule PO 40 mg DAILY KERLINE Administration Furosemide 40 mg 05/07/25 21:00 05/07/25 21:25 Furosemide Inj 40 Mg/4 Ml Vial IV PUSH 40 mg Q12HR KERLINE Administration Gabapentin 600 mg 05/07/25 13:00 05/07/25 17:25 Gabapentin 300 Mg Capsule PO 600 mg TID KERLINE Administration Glucagon 1 mg 05/07/25 11:21 Glucagon For Inj 1 Mg Vial IM PRN PRN Hypoglycemia Protocol Glucagon 1 mg 05/07/25 12:28 Glucagon For Inj 1 Mg Vial IM PRN PRN Hypoglycemia Protocol Glucose 15 gm 05/07/25 11:21 Glucose Oral Gel 15 Gm Of Glucse In 37.5 Gm Tube PO PRN PRN Hypoglycemia Protocol Glucose 15 gm 05/07/25 12:28 Glucose Oral Gel 15 Gm Of Glucse In 37.5 Gm Tube PO PRN PRN Hypoglycemia Protocol Dextrose 1,000 mls @ 100 mls/hr 05/07/25 11:21 Dextrose 5% 1,000 Ml IVPB PRN PRN Hypoglycemia Protocol Ceftriaxone Sodium 1 gm in 50 mls @ 100 mls/hr 05/08/25 09:00 Rocephin 1 Gm/Ns 50 Ml IVPB Q24H KERLINE Dextrose 1,000 mls @ 100 mls/hr 05/07/25 12:28 Dextrose 5% 1,000 Ml IVPB PRN PRN Hypoglycemia Protocol Insulin Aspart 1 - 2 units 05/07/25 21:00 05/07/25 22:24 Insulin Aspart (*Bkc) 100 Units/Ml SUB-Q Not Given HS KERLINE Protocol Insulin Aspart 2 - 5 units 05/07/25 17:00 05/07/25 16:33 Insulin Aspart (*Bkc) 100 Units/Ml SUB-Q Not Given TIDWM [facility] Protocol Levothyroxine Sodium 125 mcg 05/08/25 06:30 05/08/25 06:06 Levothyroxine Sodium 125 Mcg Tablet BY MOUTH 125 mcg DAILY@0630 [facility] Administration Ondansetron HCl 4 mg 05/07/25 11:21 Ondansetron Inj 4 Mg/2 Ml Vial IV PUSH Q4H PRN Nausea Pantoprazole Sodium 40 mg 05/08/25 09:00 Pantoprazole 40 Mg Tablet PO BID [facility] Rivaroxaban 20 mg 05/08/25 17:00 Rivaroxaban 20 Mg Tablet PO DAILY@1700 [facility] Rosuvastatin Calcium 10 mg 05/08/25 09:00 Rosuvastatin 10 Mg Tablet PO DAILY [facility] Tramadol HCl 50 mg 05/07/25 12:21 Tramadol Hcl (*Crx) 50 Mg Tablet PO QHS PRN pain 4-6 Radiology Results: ITS Impressions Chest X-Ray 05/07/25 10:13 IMPRESSION: Mild pulmonary vascular congestion, without focal infiltrate or effusion. Labs Labs: Laboratory Results - last 24 hr 05/07/25 05/07/25 05/07/25 09:28 15:02 16:24 WBC 12.4 H RBC 4.59 Hgb 10.7 L Hct 36.6 L MCV 79.7 L MCH 23.3 L MCHC 29.2 L RDW 19.3 H Plt Count 205 MPV 10.0 Immature Gran % (Auto) 0.7 H Neut % (Auto) 89.4 H Lymph % (Auto) 4.6 L Castro % (Auto) 4.3 Eos % (Auto) 0.6 Baso % (Auto) 0.4 Lymph # (Auto) 0.57 L Castro # (Auto) 0.5 Eos # (Auto) 0.1 Baso # (Auto) 0.1 Abs Immat Gran (auto) 0.09 H Absolute Neuts (auto) 11.1 H Absolute Nucleated RBC 0.000 Band Neutrophils % Not Reportable Nucleated RBC % 0.0 Platelet Estimate Adequate Hypochromasia 2+ Anisocytosis 2+ Ovalocytes Stomatocytes 1+ Schistocytes None seen PT 20.9 H INR 1.8 APTT 36.1 Sodium 137 Potassium 2.8 L* 2.9 L Chloride 92 L Carbon Dioxide 33 H Anion Gap 12 BUN 13 Creatinine 0.91 Estim Creat Clear Calc 51 Estimated GFR 60 Glucose 133 H POC Capillary Glucose 108 H Calcium 9.0 Magnesium 1.6 Total Bilirubin 0.9 AST 32 ALT 19 Alkaline Phosphatase 92 Troponin I < 0.012 NT-Pro-B Natriuret Pep 2980 H Total Protein 8.1 Albumin 4.1 Urine Color Yellow Urine Appearance Cloudy H Urine pH 5.5 Ur Specific [place] 1.016 Urine Protein Trace Urine Glucose (UA) Negative Urine Ketones Trace H Ur Blood (Man) Negative Urine Nitrate Negative Urine Bilirubin Negative Urine Urobilinogen 1.0 Add Ur Microanalysis Reviewed Leukocyte Esterase Rfl 2+ H Urine RBC 0-2 Urine WBC 21-50 H Ur Squamous Epith Cells None seen Urine Bacteria None seen Urine Casts 11-20 Hyaline Casts Present 05/07/25 05/07/25 05/08/25 22:03 22:04 04:52 WBC 9.8 RBC 4.46 Hgb 10.6 L Hct 36.5 L MCV 81.8 MCH 23.8 L MCHC 29.0 L RDW 19.5 H Plt Count 208 MPV 10.8 H Immature Gran % (Auto) 0.5 Neut % (Auto) 79.0 H Lymph % (Auto) 8.6 L Castro % (Auto) 6.5 Eos % (Auto) 4.9 H Baso % (Auto) 0.5 Lymph # (Auto) 0.84 L [place] # (Auto) 0.6 Eos # (Auto) 0.5 H Baso # (Auto) 0.1 Abs Immat Gran (auto) 0.05 H Absolute Neuts (auto) 7.7 H Absolute Nucleated RBC 0.000 Band Neutrophils % Not Reportable Nucleated RBC % 0.0 Platelet Estimate Adequate Hypochromasia Anisocytosis 1+ Ovalocytes 1+ Stomatocytes Schistocytes None seen PT INR APTT Sodium 138 Potassium 3.0 L 3.6 Chloride 95 L Carbon Dioxide 35 H Anion Gap 8 BUN 12 Creatinine 0.92 Estim Creat Clear Calc 51 Estimated GFR 59 Glucose 110 POC Capillary Glucose 107 H Calcium 9.0 Magnesium Total Bilirubin AST ALT Alkaline Phosphatase Troponin I NT-Pro-B Natriuret Pep Total Protein Albumin Urine Color Urine Appearance Urine pH Ur Specific [place] Urine Protein Urine Glucose (UA) Urine Ketones Ur Blood (Man) Urine Nitrate Urine Bilirubin Urine Urobilinogen Add Ur Microanalysis Leukocyte Esterase Rfl Urine RBC Urine WBC Ur Squamous Epith Cells Urine Bacteria Urine Casts Hyaline Casts Quality VTE Prophylaxis VTE prophylaxis: mechanical ordered and pharmacologic ordered
[2025-05-08] MEDS: PANTOPRAZOLE 40 MG TABLET PO ×2 (09:10→16:34)
[2025-05-08] MEDS: FERROUS SULFATE 325 MG TABLET DR PO (09:10)
[2025-05-08] MEDS: GABAPENTIN 300 MG CAPSULE 600 MG PO ×3 (09:10→16:34)
[2025-05-08] MEDS: ROSUVASTATIN 10 MG TABLET PO (09:10)
[2025-05-08] MEDS: FUROSEMIDE INJ 40 MG/4 ML VIAL IV PUSH (09:17)
--- NOTE | 2025-05-08 11:40 | PM.CNCAR ---
Assessment and Plan Assessment and plan (1) Acute exacerbation of chronic heart failure: Code(s): I50.9 - Heart failure, unspecified Status: Acute Plan Acute on chronic diastolic heart failure Severe tricuspid regurgitation Severe pulmonary hypertension Paroxysmal atrial fibrillation Hypothyroidism Diabetes mellitus type 2 Hypertension controlled Plan Lasix 40 mg IV b.i.d. and shift to bumetanide 2 mg b.i.d. tomorrow Up titrate diuretic dose at home and add metolazone 2.5 mg daily Watch for kidney function electrolytes Rivaroxaban 20 mg daily Metoprolol 50 mg b.i.d. Add KCl 40 mEq per day Patient will need further evaluation of tricuspid regurgitation pulmonary hypertension after achieving euvolemia History of Present Illness History of Present Illness Consult date/time: 05/08/25 11:40 Reason For Visit: CHF Exacerbation/Hypokalemia/UTI Narrative: 79 years old female patient presented to hospital with bilateral lower extremity swelling, it was associated with shortness of breath that was present was mild activity. She was also complaining of cough dry present for last 2 weeks. She was recently admitted to the hospital in April and was discharged home on Bumex. She is compliant with home medications COUNTS INCLUDE 234 BEDS AT THE [facility] Past Medical History Medical History Chronic anemia Pulmonary hypertension Diastolic heart failure Echocardiogram June 2024: Difficult study with LVH, EF of 50 55%, grade 1 diastolic dysfunction and moderate left atrial enlargement with mild pulmonary hypertension Other hyperlipidemia Restless leg syndrome History of sarcoidosis Hx of arteriovenous malformation (AVM) Iron deficiency anemia CARLOS (obstructive sleep apnea) Intolerant to CPAP Post-menopausal Paroxysmal atrial fibrillation Depression Colonoscopy planned Gastro-esophageal reflux Type 2 diabetes mellitus Hypothyroidism Essential hypertension Surgical History Surgical History Status post cataract extraction of both eyes with insertion of intraocular lens History of right shoulder replacement History of toe surgery History of arthroscopy of knee Family History Family History Mother Family history of lung cancer Family history of lung disease Father Family history of arthritis Family history of heart disease in male family member before age 55 Family history of cardiovascular disease Sibling Family history of malignant neoplasm of breast in first degree relative Carcinoma of colon Breast cancer Daughter Breast cancer Social History Social History Social History: Patient moved to [facility] (independent[facility] skilled nursing March 2025. She is a lifelong nonsmoker and denies any history of alcohol use. Her and her raised 1 son and 4 daughters. 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 Code status: DNR/DNI (per patient request) Healthcare power of personal injury attorney: Patricia (daughter) Smoking status: Never smoker Second hand tobacco smoke exposure: No Alcohol intake: never Substance use: never Substance use type: does not use Do You Feel Safe in your Home?: Yes Lack of Transportation: No Lack of Food: Never True Current Housing: I Have Housing Concerned About Future Housing: No Difficulty Paying Gas/Electric Bills: No Difficulty Paying for Meds: No Currently Unemployed: No Education: Bachelor's Degree Difficulty w/ Childcare or Family Care: No Living arrangements: [place] Occupation/Education: retired 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 Gender identity (if verbalized by the patient): Female Spiritual care concerns: No Meds Home Medications and Allergies Home Medications ?Medication ?Instructions ?Recorded ?Confirmed ?Type metoprolol tartrate 50 mg tablet 50 mg PO Q12H 10/14/19 05/07/25 History rivaroxaban 20 mg tablet (Xarelto) 20 mg PO DAILY 10/14/19 05/07/25 History vitamins A,C,M-iqyc-olqhyy 4,296 1 cap PO BID 11/08/20 05/07/25 History mcg-226 mg-90 mg capsule (PreserVision AREDS) acetaminophen 650 mg 1,300 mg PO Q12H pain 05/05/22 05/07/25 History tablet,extended release tramadol 50 mg tablet 50 mg PO QHS PRN pain #30 tabs 11/21/23 05/07/25 Rx gabapentin 600 mg tablet 600 mg PO TID #270 tabs 09/03/24 05/07/25 Rx metformin 500 mg tablet 500 mg PO BID #180 tabs 11/05/24 05/07/25 Rx bumetanide 2 mg tablet 2 mg PO BID 11/17/24 05/07/25 History levothyroxine 125 mcg tablet See Rx Instructions .Route 11/30/24 05/07/25 Rx .COMPLEX #90 tabs rosuvastatin 10 mg tablet (Crestor) 10 mg PO DAILY #90 tabs 11/30/24 05/07/25 Rx fluoxetine 20 mg capsule (Prozac) 40 mg (2 x 20 mg) PO DAILY #180 12/17/24 05/07/25 Rx caps pramipexole 1 mg tablet 1 mg PO TID #270 tabs 02/09/25 05/07/25 Rx omeprazole 20 mg capsule,delayed 20 mg PO BID #180 caps 02/18/25 05/07/25 Rx release ferrous sulfate 325 mg (65 mg 325 mg PO EVERY OTHER DAY 05/07/25 05/08/25 History iron) tablet (FeroSul) nitrofurantoin 100 mg PO Q12H 05/07/25 05/07/25 History monohydrate/macrocrystals 100 mg capsule potassium chloride 20 mEq 20 meq PO BID 05/07/25 05/07/25 History tablet,extended release Allergies Allergy/AdvReac Type Severity Reaction Status Date / Time Sulfa (Sulfonamide Allergy Intermediate Rash Verified 05/07/25 12:13 Antibiotics) nitrofurantoin (From Allergy itching Verified 05/07/25 12:13 Macrobid) Vital Signs Vital Signs - 24 hr 05/07/25 12:48 05/07/25 14:00 05/07/25 16:00 Temperature 36.3 C L Pulse Rate 84 79 Respiratory Rate 18 Blood Pressure 100/48 L Pulse Oximetry 97 98 Oxygen Delivery Nasal Cannula Oxygen Flow Rate 2 05/07/25 20:00 05/07/25 20:00 05/07/25 21:31 Temperature Pulse Rate 79 Respiratory Rate Blood Pressure 102/63 Pulse Oximetry 100 Oxygen Delivery Nasal Cannula Oxygen Flow Rate 2 05/07/25 22:09 05/07/25 22:45 05/08/25 00:00 Temperature 36.5 C Pulse Rate 76 77 Respiratory Rate 16 Blood Pressure Pulse Oximetry 98 100 Oxygen Delivery Nasal Cannula Oxygen Flow Rate 2 05/08/25 04:00 05/08/25 05:46 05/08/25 08:33 Temperature 36.4 C Pulse Rate 82 89 Respiratory Rate 16 Blood Pressure 112/70 Pulse Oximetry 100 92 Oxygen Delivery Nasal Cannula Oxygen Flow Rate 2 05/08/25 09:17 05/08/25 09:22 05/08/25 09:22 Temperature Pulse Rate 90 83 Respiratory Rate 16 Blood Pressure 122/66 Pulse Oximetry 97 98 Oxygen Delivery Room Air Oxygen Flow Rate 05/08/25 09:57 Temperature Pulse Rate Respiratory Rate Blood Pressure 117/67 Pulse Oximetry 94 Oxygen Delivery Oxygen Flow Rate Exam Const: General: comfortable and no acute distress Other: Able to lie flat HENMT: Face/Nose/Sinus: Normal nares present and no epistaxis Mouth: Yes moist mucous membranes Eyes: Sclera: sclerae normal Pupils: Equal, round and reactive pupils present Neck: Neck: supple and no JVD Carotids: no bruits Resp: Auscultation: clear to auscultation bilaterally and lung sounds not diminished Other: No chest wall tenderness Cardio: Rate: regular rate Rhythm: regular rhythm Heart sounds: no gallops, no murmurs and no rubs GI: GI Palp: Yes Soft to palpation and No Tenderness to palpation present (GI) Auscultation: normal bowel sounds Skin: General skin exam: normal color, rashes and/or lesions noted and no erythema Other: Warm Neuro: Cranial nerves: Yes Equal, round and reactive pupils present Speech: normal speech Other: No obvious focal deficit or facial asymmetry Extrem: General: no edema Other: Normal capillary refills Intact distal pulses. Results Labs and Meds 05/08/25 04:52 05/08/25 04:52 Lab results: CBC 05/08/25 Range/Units 04:52 WBC 9.8 (4.5-10.0) K/mm3 RBC 4.46 (4.2-5.4) M/mm3 Hgb 10.6 L (12.0-15.0) g/dL Hct 36.5 L (37.0-47.0) % Plt Count 208 (150-375) k/mm3 Lymph # (Auto) 0.84 L (0.9-3.2) K/mm3 [place] # (Auto) 0.6 (0.1-0.6) K/mm3 Eos # (Auto) 0.5 H (0-0.3) K/mm3 Baso # (Auto) 0.1 (0.0-0.1) K/mm3 Comprehensive Metabolic Panel 05/07/25 05/07/25 05/08/25 Range/Units 15:02 22:04 04:52 Sodium 138 (137-145) mmol/L Potassium 2.9 L 3.0 L 3.6 (3.4-5.0) mmol/L Chloride 95 L (98-107) mmol/L Carbon Dioxide 35 H (22-30) mmol/L BUN 12 (7-17) mg/dL Creatinine 0.92 (0.7-1.0) mg/dL Glucose 110 (65-110) mg/dL Calcium 9.0 (8.4-10.2) mg/dL Intake and Output 05/07/25 05/08/25 05/08/25 23:59 07:59 15:59 Intake Total 790 960 0 Output Total 900 1000 Balance -110 -40 0 Intake: IV 520 Potassium Chloride Inj 40 meq 520 In Sodium Chloride 0.9% IV 500 ml @ 130 mls/hr IVPB ONCE ONE Rx#:[id number] Oral 790 440 0 Output: Urine 900 Catheter Urine 1000 External/Condom 1000 Other: # Unmeasured Voids 1 Patient Weight 05/08/25 23:59 Weight 104 kg
--- NOTE | 2025-05-08 12:25 | PC.NURSE ---
RN called ANA Tyler about patient being tachycardic (125-130s). Cardiology saw patient and is resuming metoprolol. Patient is asymptomatic. However ran sinus tach for approximately 10 minutes. Patient is sitting on bedside with no complaints. Vitals are stable and ANA aware.
[2025-05-08] MEDS: POTASSIUM CHLORIDE 20 MEQ ER TABLET 40 MEQ PO (12:39)
--- NOTE | 2025-05-08 12:40 | PC.NURSE ---
Patient's HR is now 98. RN went to administer metoprolol and patient refuses unless HR is 110 or above.
[2025-05-08 16:34] LABS: Anion Gap 7 mmol/L (4-12); Blood Urea Nitrogen 14 mg/dL (7-17); Calcium 8.8 mg/dL (8.4-10.2); Carbon Dioxide 35 mmol/L (22-30); Chloride 94 mmol/L (98-107); Estimated CRCL calculation 53 ml/min; Estimated Glomerular Filt Rate > 60; Glucose 128 mg/dL (65-110); Potassium 3.3 mmol/L (3.4-5.0); Sodium 136 mmol/L (137-145)
[2025-05-08] MEDS: BUMETANIDE 1 MG TABLET 2 MG PO (16:34)
[2025-05-08] MEDS: RIVAROXABAN 20 MG TABLET PO (16:34)
[2025-05-08] MEDS: METOPROLOL TARTRATE 50 MG TAB PO (20:10)
[2025-05-08] MEDS: POTASSIUM CHLORIDE 20 MEQ PACKET (FOR LIQUID) 40 MEQ PO (21:59)
[2025-05-08] MEDS: METOPROLOL TARTRATE INJ 5 MG/5 ML VIAL IV PUSH (21:59)
[2025-05-09] VITALS: PULSE 103
[2025-05-09 04:00] VITALS: PULSE 111
[2025-05-09 06:00] VITALS: BP 94/68; PULSE 61; RESP 18; TEMP 36.6; O2SAT 99
[2025-05-09] MEDS: LEVOTHYROXINE SODIUM 125 MCG TABLET BY MOUTH (06:11)
--- NOTE | 2025-05-09 07:08 | P.PNIM_ITS ---
Progress Note: A&P Assessment and Plan (1) Acute exacerbation of chronic heart failure: Code(s): I50.9 - Heart failure, unspecified Status: Acute Assessment and Plan: * This is patient's 2nd CHF exacerbation in 30 days * Echo on 04/05/2025 EF 60-65% * Currently holding home diuretics of Bumex and metolazone * IV Lasix, fluid restriction * Repeat potassium 2.9, another 40 mEq of IV potassium given and repeat 3.0 will repeat another 40 mg of IV potassium with sodium in morning * Will hold off on more diuretics till after potassium is replaced * Daily weights * Cardiology consulted, appreciate further recommendations * Started on Lasix 40mg IV BID * Upon d/c - up titrate diuretic and + metolazone 2.5mg daily * KCl 40meq daily * Patient will need further evaluation of tricuspid regurgitation pulmonary hypertension after achieving euvolemia * Switch to Bumex 2mg BID today (2) Acute hypokalemia: Code(s): E87.6 - Hypokalemia Status: Acute Assessment and Plan: * Patient received 40 IV and 40 p.o. in the emergency room * Repeat potassium 2.9, another 40 mEq of IV potassium given and repeat 3.0 will repeat another 40 mg of IV potassium with sodium in morning * 05/09: K 3.3 (3) Type 2 diabetes mellitus: Qualifiers: Diabetes mellitus terminologist insulin use: without long-term use Diabetes mellitus complication status: without complication Qualified Code(s): E11.9 - Type 2 diabetes mellitus without complications Code(s): E11.9 - Type 2 diabetes mellitus without complications Status: Acute Assessment and Plan: * Hold home metformin while in hospital * SSI * Accu-Bertha a.cAllie HS (4) Chronic anemia: Code(s): D64.9 - Anemia, unspecified Status: Acute Assessment and Plan: * No signs of acute bleeding * Hemoglobin above baseline likely delusional * 05/09 Hgb 10.6 (5) Abnormal chest xray: Code(s): R93.89 - Abnormal findings on diagnostic imaging of other specified body structures Status: Acute Assessment and Plan: * Chest XR 05/08: Asymmetry of the right superior mediastinum, for which noncontrast enhanced CT examination of the chest is suggested (if the patient is clinically able) nonemergency for further evaluation. Otherwise: Mild pulmonary vascular congestion, without focal infiltrate or effusion. * Pt is stable but likely to require several day hospitalization - Will obtain Chest CT today for further eval Subjective Date/time seen: 05/09/25 07:08 Interval history: 79-year-old female past medical history of diastolic heart failure, pulmonary hypertension, iron deficiency anemia, sleep apnea, atrial fibrillation, and diabetes type 2 presents the hospital with lower extremity swelling. 05/09/2025 Patient is sitting comfortably in bed at time of exam. Review of Systems Review of Systems: 12 systems were reviewed and are negativ e except for as per HPI. Exam Narrative: General: well appearing, appears stated age. HEENT: normocephalic, atraumatic. Mucous membranes moist. EOMI, PERRLA, bilateral sclera anicteric, no conjunctival injection. Neck supple without JVD, lymphadenopathy, or bruit. Respiratory: Rhonchi to ascultation bilaterally. Wet cough Cardiovascular: Regular rate and rhythm, normal S1-S2 upon ascultation. No murmurs, rubs, or clicks. PMI is nondisplaced, capillary refill less than 3 second. Abdomen: Soft, round, no pulsatile masses, nondistended and nontender. No rebound, no guarding. No CVA tenderness, no hepatosplenomegaly. Bowel sounds present to all four quadrants. No high pitch or tinkling sounds, resonant to percussion. Extremities: No cyanosis, clubbing, Pulses are palpable 2/2. Active ROM to all four extremities. 2+ edema Neuro: Alert and orientated x 4. PERRLA. Cranial nerves 2-12 intact without focal deficit. Skin: Warm, dry, and intact, without rash, erythema, or lesion. Psych: pleasant, cooperative, normal speech, normal affect, no hallucinations, no dysarthia Objective Data Vital Signs Vital Signs: Vital Signs - 24 hr 05/08/25 08:33 05/08/25 09:17 05/08/25 09:22 Temperature Pulse Rate 90 Respiratory Rate 16 Blood Pressure 122/66 Pulse Oximetry 92 97 98 Oxygen Delivery Nasal Cannula Room Air Oxygen Flow Rate 2 05/08/25 09:22 05/08/25 09:57 05/08/25 12:00 Temperature Pulse Rate 83 98 Respiratory Rate Blood Pressure 117/67 Pulse Oximetry 94 Oxygen Delivery Oxygen Flow Rate 05/08/25 12:40 05/08/25 13:55 05/08/25 15:43 Temperature 97.5 F L Pulse Rate 98 92 98 Respiratory Rate 18 18 Blood Pressure 107/57 L 111/55 L Pulse Oximetry 89 L 95 Oxygen Delivery Nasal Cannula Oxygen Flow Rate 2 05/08/25 16:00 05/08/25 20:00 05/08/25 20:10 Temperature Pulse Rate 89 125 H 120 H Respiratory Rate Blood Pressure Pulse Oximetry Oxygen Delivery Oxygen Flow Rate 05/08/25 21:54 05/08/25 21:59 05/08/25 22:00 Temperature 97.5 F L Pulse Rate 128 H 133 H 120 H Respiratory Rate 18 Blood Pressure 110/66 122/78 Pulse Oximetry 97 Oxygen Delivery Oxygen Flow Rate 05/09/25 00:00 05/09/25 04:00 05/09/25 06:00 Temperature 97.9 F Pulse Rate 103 H 111 H 61 Respiratory Rate 18 Blood Pressure 94/68 L Pulse Oximetry 99 Oxygen Delivery Oxygen Flow Rate Intake/Output Intake/Output: Intake & Output 05/06/25 05/07/25 05/08/25 05/09/25 23:59 23:59 23:59 23:59 Intake Total 1130 1200 Output Total 900 1575 Balance 230 -375 Meds/Results Medications: Active Medications Generic Name Dose Route Start Last Admin Trade Name Freq PRN Reason Stop Dose Admin Acetaminophen 650 mg 05/07/25 11:21 Acetaminophen 325 Mg Tablet PO Q4H PRN Mild Pain (1-3) or Fever Bumetanide 2 mg 05/08/25 17:00 05/08/25 16:34 Bumetanide 1 Mg Tablet PO 2 mg BID KERLINE Administration Dextrose 12.5 gm 05/07/25 12:28 Dextrose 50% 25 Gm/50 Ml Syringe IV PUSH PRN PRN Hypoglycemia Protocol Ferrous Sulfate 325 mg 05/08/25 09:00 05/08/25 09:10 Ferrous Sulfate [address] PO 325 mg DAILY KERLINE Administration Fluoxetine HCl 40 mg 05/07/25 12:25 05/08/25 09:10 Fluoxetine Hcl 20 Mg Capsule PO 40 mg DAILY KERLINE Administration Gabapentin 600 mg 05/07/25 13:00 05/08/25 16:34 Gabapentin 300 Mg Capsule PO 600 mg TID KERLINE Administration Glucagon 1 mg 05/07/25 12:28 Glucagon For Inj 1 Mg Vial IM PRN PRN Hypoglycemia Protocol Glucose 15 gm 05/07/25 12:28 Glucose Oral Gel 15 Gm Of Glucse In 37.5 Gm Tube PO PRN PRN Hypoglycemia Protocol Ceftriaxone Sodium 1 gm in 50 mls @ 100 mls/hr 05/08/25 09:00 05/08/25 09:09 Rocephin 1 Gm/Ns 50 Ml IVPB 100 mls/hr Q24H KERLINE Administration Dextrose 1,000 mls @ 100 mls/hr 05/07/25 12:28 Dextrose 5% 1,000 Ml IVPB PRN PRN Hypoglycemia Protocol Insulin Aspart 1 - 2 units 05/07/25 21:00 05/08/25 20:10 Insulin Aspart (*Bkc) 100 Units/Ml SUB-Q Not Given HS [facility] Protocol Insulin Aspart 2 - 5 units 05/07/25 17:00 05/08/25 17:25 Insulin Aspart (*Bkc) 100 Units/Ml SUB-Q Not Given TIDWM [facility] Protocol Levothyroxine Sodium 125 mcg 05/08/25 06:30 05/09/25 06:11 Levothyroxine Sodium 125 Mcg Tablet BY MOUTH 125 mcg DAILY@0630 KERLINE Administration Metolazone 2.5 mg 05/09/25 09:00 Metolazone 2.5 Mg Tablet PO QAM [facility] Metoprolol Tartrate 50 mg 05/08/25 12:30 05/08/25 20:10 Metoprolol Tartrate 50 Mg Tab PO 50 mg Q12HR KERLNIE Administration Ondansetron HCl 4 mg 05/07/25 11:21 Ondansetron Inj 4 Mg/2 Ml Vial IV PUSH Q4H PRN Nausea Pantoprazole Sodium 40 mg 05/08/25 09:00 05/08/25 16:34 Pantoprazole 40 Mg Tablet PO 40 mg BID KERLINE Administration Potassium Chloride 40 meq 05/09/25 09:00 Potassium Chloride 20 Meq Er Tablet PO DAILY KERLINE Rivaroxaban 20 mg 05/08/25 17:00 05/08/25 16:34 Rivaroxaban 20 Mg Tablet PO 20 mg DAILY@1700 KERLINE Administration Rosuvastatin Calcium 10 mg 05/08/25 09:00 05/08/25 09:10 Rosuvastatin 10 Mg Tablet PO 10 mg DAILY KERLINE Administration Tramadol HCl 50 mg 05/07/25 12:21 Tramadol Hcl (*Crx) 50 Mg Tablet PO QHS PRN pain 4-6 Radiology Results: ITS Impressions Venous Doppler Study 05/08/25 08:59 IMPRESSION: 1. No deep venous thrombosis. Chest X-Ray 05/08/25 10:36 IMPRESSION: Asymmetry of the right superior mediastinum, for which noncontrast enhanced CT examination of the chest is suggested (if the patient is clinically able) nonemergently for further evaluation. Otherwise: Mild pulmonary vascular congestion, without focal infiltrate or effusion. Chest CT 05/08/25 20:03 IMPRESSION: No acute thoracic process detected. Borderline aortic ectasia. Interstitial changes in the lungs, indeterminate for UIP pattern. Mildly patulous esophagus with fluid/debris. Mediastinal lymphadenopathy. Labs Labs: Laboratory Results - last 24 hr 05/08/25 05/08/25 05/08/25 07:30 11:17 16:03 Sodium 136 L Potassium 3.3 L Chloride 94 L Carbon Dioxide 35 H Anion Gap 7 BUN 14 Creatinine 0.87 Estim Creat Clear Calc 53 Estimated GFR > 60 Glucose 128 H POC Capillary Glucose 108 H 98 Calcium 8.8 05/08/25 05/08/25 16:38 20:07 Sodium Potassium Chloride Carbon Dioxide Anion Gap BUN Creatinine Estim Creat Clear Calc Estimated GFR Glucose POC Capillary Glucose 106 H 103 Calcium Quality VTE Prophylaxis VTE prophylaxis: mechanical ordered and pharmacologic ordered
[2025-05-09 07:17] LABS: Hematocrit 37.8 % (37.0-47.0); Hemoglobin 10.8 g/dL (12.0-15.0); Immature Granulocyte Percent A 0.1 % (0-0.5); Lymphocytes Absolute Auto 1.26 K/mm3 (0.9-3.2); Mean Corpuscular HGB Conc 28.6 g/dl (32-36); Mean Corpuscular Hemoglobin 23.5 pg (26-34); Mean Corpuscular Volume 82.2 fl (80-100); Nucleated Red Blood Cells Absolute Auto 0.000 K/mm3 (0.0-0.012); Nucleated Red Blood Cells Perc 0.0 % (0.0-0.2); Platelet Count Result 231 k/mm3 (150-375); Red Blood Count 4.60 M/mm3 (4.2-5.4); White Blood Count 8.5 K/mm3 (4.5-10.0)
[2025-05-09 07:29] LABS: Alanine Aminotransferase 16 U/L (6-35); Albumin Level 3.8 g/dL (3.5-5.1); Alkaline Phosphatase 91 U/L (38-126); Anion Gap 10 mmol/L (4-12); Aspartate Amino Transferase 30 U/L (14-36); Bilirubin,Total 0.7 mg/dL (0.2-1.3); Blood Urea Nitrogen 18 mg/dL (7-17); Calcium 8.7 mg/dL (8.4-10.2); Carbon Dioxide 30 mmol/L (22-30); Chloride 96 mmol/L (98-107); Estimated CRCL calculation 45 ml/min; Estimated Glomerular Filt Rate 51; Glucose 119 mg/dL (65-110); Potassium 3.7 mmol/L (3.4-5.0); Sodium 136 mmol/L (137-145); Total Protein 7.7 g/dL (6.3-8.2)
[2025-05-09 07:42] LABS: Anisocytosis 1+; Ovalocytes 1+
[2025-05-09 07:43] LABS: Schistocytes None Seen
[2025-05-09 08:58] VITALS: PULSE 119
[2025-05-09] MEDS: PANTOPRAZOLE 40 MG TABLET PO (08:58)
[2025-05-09] MEDS: FERROUS SULFATE 325 MG TABLET DR PO (08:58)
[2025-05-09] MEDS: BUMETANIDE 1 MG TABLET 2 MG PO (08:58)
[2025-05-09] MEDS: METOPROLOL TARTRATE 50 MG TAB PO (08:58)
[2025-05-09] MEDS: ROSUVASTATIN 10 MG TABLET PO (08:58)
[2025-05-09] MEDS: POTASSIUM CHLORIDE 20 MEQ ER TABLET 40 MEQ PO (08:59)
[2025-05-09] MEDS: GABAPENTIN 300 MG CAPSULE 600 MG PO (08:59)
[2025-05-09 09:10] VITALS: PULSE 109; O2SAT 96
[2025-05-09 09:40] VITALS: O2SAT 92
--- NOTE | 2025-05-09 10:01 | PM.DS ---
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 mellitus terminal press operator insulin use: without chcf use Qualified Code(s): E11.9 - Type 2 diabetes mellitus without complications Code(s): E11.9 - Type 2 diabetes mellitus without complications Status: Acute (4) Chronic anemia: Code(s): D64.9 - Anemia, unspecified Status: Acute (5) Abnormal chest xray: Code(s): R93.89 - Abnormal findings on diagnostic imaging of other specified body structures Status: Acute DS: Summary Hospital Course Reason for hospitalization: Lower extremity swelling Hospital Course: 79-year-old female past medical history of diastolic heart failure, pulmonary hypertension, iron deficiency anemia, sleep apnea, atrial fibrillation, and diabetes type 2 presents the hospital with lower extremity swelling. Patient has a increased swelling of shortness of breath since Saturday. She states that she was recently hospitalized at the beginning of April for CHF exacerbation. Patient's echocardiogram on 04/05/2025 showed EF of 60-65% with grade 1 diastolic dysfunction. Cardiology was not consulted last hospital admission. While patient was in hospital she was taking Lasix however she was not discharged on any additional diuretics. She is compliant with her home diuretics. Lab work shows leukocytosis at 12.4, hemoglobin of 10.7 which was higher than last hospitalization, potassium of 2.8, BNP of 2980, urine is cloudy negative for nitrates positive for leukocyte esterase, 21-50 wbc's, chest x-ray shows mild pulmonary congestion. EKG shows sinus rhythm with incomplete right bundle-branch block. Patient received 40 mg of Rocephin, Lasix and 80 mg of p.o. and IV potassium. Cardiology consulted regarding CHF exacerbation. Echocardiogram obtained which showed Severe tricuspid regurgitation and Severe pulmonary hypertension. In 06/27, mild mitral and tricuspid regurg was present but no mention of pulmonary hypternsion was made. Cardiology recommended continuing with lasix 40mg IV BID with the transition back to bumex 2mg BID starting on 05/09. They recommended that the patient follow up with her pcp/podiatry doctor regarding up titrating her Bumex and possibly adding metolazone 2.5 mg daily. They also recommend the patient follow up regarding her worsening tricuspid valve regurgitation and mailed pulmonary hypertension. This can be done in the outpatient setting. Throughout hospitalization, patient continued to improve significantly. Lower extremity edema subsided subsequent day after admission. Breathing also improved. On 05/09, vital signs and blood work have been stable and unremarkable. Patient is otherwise hemodynamically stable for discharge at this time he can follow-up with her primary care physician/podiatry doctor regarding new echocardiogram findings and medication adjustments for her CHF. Patient is amenable to this plan. Plan for discharge home. Status at Discharge Functional status at discharge: independent ambulation Overall status at discharge: patient is back to baseline Time Spent with Patient Time attestation: Total time spent providing and/or coordinating discharge services: 45 Exam Narrative: General: well appearing, appears stated age. HEENT: normocephalic, atraumatic. Mucous membranes moist. EOMI, PERRLA, bilateral sclera anicteric, no conjunctival injection. Neck supple without JVD, lymphadenopathy, or bruit. Respiratory: Rhonchi to ascultation bilaterally. Wet cough Cardiovascular: Regular rate and rhythm, normal S1-S2 upon ascultation. No murmurs, rubs, or clicks. PMI is nondisplaced, capillary refill less than 3 second. Abdomen: Soft, round, no pulsatile masses, nondistended and nontender. No rebound, no guarding. No CVA tenderness, no hepatosplenomegaly. Bowel sounds present to all four quadrants. No high pitch or tinkling sounds, resonant to percussion. Extremities: No cyanosis, clubbing, Pulses are palpable 2/2. Active ROM to all four extremities. 2+ edema Neuro: Alert and orientated x 4. PERRLA. Cranial nerves 2-12 intact without focal deficit. Skin: Warm, dry, and intact, without rash, erythema, or lesion. Psych: pleasant, cooperative, normal speech, normal affect, no hallucinations, no dysarthia DS: Data Data Completed and Pending Labs on day of discharge: Labs from last 24 hours 05/09/25 05/09/25 05/08/25 07:58 07:12 20:07 WBC 8.5 RBC 4.60 Hgb 10.8 L Hct 37.8 MCV 82.2 MCH 23.5 L MCHC 28.6 L RDW 19.7 H Plt Count 231 MPV 9.4 Immature Gran % (Auto) 0.1 Neut % (Auto) 68.0 Lymph % (Auto) 14.8 L [place] % (Auto) 9.8 H Eos % (Auto) 6.4 H Baso % (Auto) 0.9 Lymph # (Auto) 1.26 [place] # (Auto) 0.8 H Eos # (Auto) 0.5 H Baso # (Auto) 0.1 Abs Immat Gran (auto) 0.01 Absolute Neuts (auto) 5.8 Absolute Nucleated RBC 0.000 Band Neutrophils % Not Reportable Nucleated RBC % 0.0 Platelet Estimate Adequate Anisocytosis 1+ Ovalocytes 1+ Schistocytes None seen Sodium 136 L Potassium 3.7 Chloride 96 L Carbon Dioxide 30 Anion Gap 10 BUN 18 H Creatinine 1.04 H Estim Creat Clear Calc 45 Estimated GFR 51 L Glucose 119 H POC Capillary Glucose 103 103 Calcium 8.7 Total Bilirubin 0.7 AST 30 ALT 16 Alkaline Phosphatase 91 Total Protein 7.7 Albumin 3.8 05/08/25 05/08/25 05/08/25 16:38 16:03 11:17 WBC RBC Hgb Hct MCV MCH MCHC RDW Plt Count MPV Immature Gran % (Auto) Neut % (Auto) Lymph % (Auto) [place] % (Auto) Eos % (Auto) Baso % (Auto) Lymph # (Auto) [place] # (Auto) Eos # (Auto) Baso # (Auto) Abs Immat Gran (auto) Absolute Neuts (auto) Absolute Nucleated RBC Band Neutrophils % Nucleated RBC % Platelet Estimate Anisocytosis Ovalocytes Schistocytes Sodium 136 L Potassium 3.3 L Chloride 94 L Carbon Dioxide 35 H Anion Gap 7 BUN 14 Creatinine 0.87 Estim Creat Clear Calc 53 Estimated GFR > 60 Glucose 128 H POC Capillary Glucose 106 H 98 Calcium 8.8 Total Bilirubin AST ALT Alkaline Phosphatase Total Protein Albumin Discharge Plan Discharge Attending physician on discharge: Pedro Fitzpatrick Consulting providers: Tre Herrera; Tyler Lou Discharging Clinician: Tyler Lou Anticipated Discharge Date/Time: 05/09/25 09:54 Patient Disposition: Home Activity: as tolerated Diet: heart healthy Discharge Instructions: Take medications as prescribed. Continue taking Bumex 2 mg twice daily. Discuss with your primary care physician and podiatry doctor regarding continuing her Bumex, they may want to increase your dosage. Also be sure to discuss with them your echocardiogram results. Your echocardiogram suggests severe tricuspid valve regurgitation and pulmonary hypertension. These findings would benefit from further evaluation, including a sleep study. Your primary care physician can facilitate any further workup you may need in the outpatient setting. Monitor blood pressures Take caution while standing, rising, or moving Change positions slowly taking a break between each position change If you standing feel dizzy sit back down and take a break Encouraged to continue with yearly vaccinations Return to the emergency department if he developed sudden shortness of breath, chest pain, nausea, vomiting, upset stomach or intractable diarrhea Return to the emergency department if you develop fever greater than 101.5 Follow-up with the primary care physician within 1-2 weeks Thank you for [facility] for your healthcare needs Patient Instructions: Antibiotic Form, Heart Failure (DC) Patient Language: Ukrainian Stand Alone Forms: General Discharge Information Follow-up/Referrals: Tre Herrera MD [Physician] - PHYSICIAN NOT ON STAFF,NONSTAFF [Primary Care Provider] - Discharge Medications: Continued PreserVision AREDS [id number] gfxt-ge-dnde capsule 1 cap PO BID bumetanide 2 mg tablet 2 mg PO BID Xarelto 20 mg tablet 20 mg PO DAILY Rx Instructions: take each evening metoprolol tartrate 50 mg tablet 50 mg PO Q12H Patient Comments: Pt states medication was put on hold by cardiology ferrous sulfate [FeroSul] 325 mg (65 mg iron) tablet 325 mg PO EVERY OTHER DAY nitrofurantoin monohyd/m-cryst 100 mg capsule 100 mg PO Q12H potassium chloride 20 mEq tablet extended release 20 meq PO BID acetaminophen 650 mg tablet extended release 1,300 mg PO Q12H tramadol 50 mg tablet 50 mg PO QHS PRN (Reason: pain) Qty: 30 1RF gabapentin 600 mg tablet 600 mg PO TID Qty: 270 1RF metformin 500 mg tablet 500 mg PO BID Qty: 180 3RF rosuvastatin [Crestor] 10 mg tablet 10 mg PO DAILY Qty: 90 1RF levothyroxine 125 mcg tablet See Rx Instructions .ROUTE .COMPLEX Qty: 90 1RF Dose Instruction: TAKE 1 TABLET BY MOUTH DAILY Rx Instructions: TAKE 1 TABLET BY MOUTH DAILY fluoxetine [Prozac] 20 mg capsule 40 mg PO DAILY Qty: 180 1RF pramipexole 1 mg tablet 1 mg PO TID Qty: 270 1RF omeprazole 20 mg capsule,delayed release(DR/EC) 20 mg PO BID Qty: 180 3RF Date of admission: 05/08/25 15:54 Primary Care Provider: PHYSICIAN NOT ON STAFF,NONSTAFF Admitting Provider: Pedro Fitzpatrick Attending physician on admission: Pedro Fitzpatrick Condition: Stable Quality VTE Prophylaxis VTE prophylaxis: mechanical ordered and pharmacologic ordered
== END 2025-05-09 12:31 | disposition home or self-care (01) | DRG 291 ==
LOC: ANHED 09:22 → ANH2MED 11:39
PROVIDERS: Nurse Practitioner Gerontology; Admitting Provider Family Medicine; Emergency Provider Physician Assistant; Visit Provider Physician Assistant
DX: I11.0 Hypertensive heart disease with heart failure (principal); I50.33 Acute on chronic diastolic (congestive) heart failure; I07.1 Rheumatic tricuspid insufficiency; I27.20 Pulmonary hypertension, unspecified; D50.9 Iron deficiency anemia, unspecified; E11.9 Type 2 diabetes mellitus without complications; E78.5 Hyperlipidemia, unspecified; E87.6 Hypokalemia; E03.9 Hypothyroidism, unspecified; G25.81 Restless legs syndrome; G47.30 Sleep apnea, unspecified; G47.33 Obstructive sleep apnea (adult) (pediatric); I48.91 Unspecified atrial fibrillation; I48.0 Paroxysmal atrial fibrillation; K21.9 Gastro-esophageal reflux disease without esophagitis; Z98.41 Cataract extraction status, right eye; Z98.42 Cataract extraction status, left eye; Z96.1 Presence of intraocular lens; Z96.611 Presence of right artificial shoulder joint; Z66 Do not resuscitate; Z79.84 Long term (current) use of oral hypoglycemic drugs; Z79.01 Long term (current) use of anticoagulants
CPT/HCPCS: 36415; 71045; 71046; 71250; 80048; 80053; 81001; 82948; 83735; 83880; 84132; 84484; 85025; 85610; 85730; 87086; 93005; 93970; 96365; 96366; 96367; 96375; 96376; 99285; A9270; G0378; J0616; J0696; J1938; J3475; J3480; J7040

== ENCOUNTER 2025-05-17 01:40 | Inpatient (IN) | payer MEDICARE, OTHER, SELFPAY ==
[2025-05-17] VITALS (33 sets, daily range): BP systolic 90–118; BP diastolic 52–70; PULSE 73–135; RESP 13–25; TEMP 35.4–37.1; O2SAT 90–100; BMI 40.6
--- NOTE | ~2025-05-17 | CT_ITS ---
Clinical Indication: Hypoxia CT Scan of the Chest with Contrast: Technique: Contiguous sections were acquired throughout the chest after intravenous administration of 100 cc of Omnipaque 350. Dose reduction technique was used on this scan by utilizing automated expos ure control and iterative reconstruction technique. The dose-length product (DLP) was 690.75 mGy-cm. COMPARISON: 05/08/2025 Findings: Mediastinal and bilateral hilar lymphadenopathy is similar to prior exam, with largest node in the bedoya bcarinal region. There is no filling defect in the pulmonary arterial tree to suggest pulmonary embol us. Main pulmonary artery is dilated to 4.4 cm in diameter. There is no evidence of aortic dissection or aneurysm. There is no evidence of pleural or pericardial effusion. Extensive chronic interstitial disease with areas of scarring and architectural distortion lungs are similar to prior exam. No suspicious pulmonary nodule or consolidation. Calcified left upper lobe gra nuloma present. Images through the upper abdomen reveal no abnormalities. Impression: No evidence of pulmonary embolus, aortic dissection, or aortic aneurysm. Stable extensive chronic interstitial disease in the lungs. Stable mediastinal/hilar lymphadenopathy, largest node in the subcarinal region. Dilated main pulmonary artery suggests pulmonary artery hypertension. Reviewed, dictated and finalized at [facility]. Impression: No evidence of pulmonary embolus, aortic dissection, or aortic aneurysm. Stable extensive chronic interstitial disease in the lungs. Stable mediastinal/hilar lymphadenopathy, largest node in the subcarinal region . Dilated main pulmonary artery suggests pulmonary artery hypertension.
--- NOTE | ~2025-05-17 | XR_ITS ---
Portable chest x-ray Comparison: None Clinical History: Shortness of breath Findings: Lungs are clear, without focal consolidation or pleural effusion. Cardiomediastinal silho uette is prominent, with pacemaker device. Bones and soft tissues are unremarkable, aside from right shoulder arthroplasty. Impression: Clear lungs. Cardiomegaly with pacemaker device. Reviewed, dictated and finalized at location . Impression: Clear lungs. Cardiomegaly with pacemaker device.
[2025-05-17 02:12] LABS: Hematocrit 33.8 % (37.0-47.0); Hemoglobin 9.8 g/dL (12.0-15.0); Immature Granulocyte Percent A 0.4 % (0-0.5); Lymphocytes Absolute Auto 0.49 K/mm3 (0.9-3.2); Mean Corpuscular HGB Conc 29.0 g/dl (32-36); Mean Corpuscular Hemoglobin 23.8 pg (26-34); Mean Corpuscular Volume 82.2 fl (80-100); Nucleated Red Blood Cells Absolute Auto 0.000 K/mm3 (0.0-0.012); Nucleated Red Blood Cells Perc 0.0 % (0.0-0.2); Platelet Count Result 202 k/mm3 (150-375); Red Blood Count 4.11 M/mm3 (4.2-5.4); White Blood Count 11.7 K/mm3 (4.5-10.0)
[2025-05-17 02:29] LABS: Anisocytosis 1+; Hypochromasia 1+
[2025-05-17 02:30] LABS: Ovalocytes 1+; Schistocytes None Seen
--- OUTSIDE RECORDS SUMMARY | 2025-05-17 02:35 | XMS_ITS | Encounter Summary ---
Author Organization [facility] Address [address] [place] [address] Care Team Providers Care Egg Factory Worker Name Role Phone Akil Chan MD Primary Care Provider [phone] Tyler Brady MD Unavailable [phone] Vinod López DO Primary Care Provider [phone] Encounter Details Date Type Department Care Team (Late st Contact Info) Description 09/08/2018 eZWay Message Enc [facility] at [facility], [facility] [address] [place] [address] Tyler Brady MD [facility]. 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 Legal Sex Female 6:14 PM CDT Gender Identity Female 11/05/2018 3:21 PM TURKEY PICKER Sexual Orientation Not on file documented as of this encounter Plan of Treatment Not on file documented as of this encounter Visit Diagnoses Not on filedocumented in this encounter Care Teams Egg Factory Worker Relationship Specialty Start Date End Date Akil Chan MD PCP - General INTERNAL MEDICINE 09/01/18 03/15/19 Vinod López DO [address] [place] [address] [address] [place], [place] [id number] PCP - General INTERNAL MEDICINE 03/16/19 Tyler Brady MD [facility] [address] [place] [address] [place] [employer] CARDIOVASCULAR DISEASE 09/01/18 documented as of this encounter
--- OUTSIDE RECORDS SUMMARY | 2025-05-17 02:35 | XMS_ITS | Clinical Summary ---
Author Organization [facility] Address [address] [place] [address] Care Team Providers Care Drafter Castings Name Role Phone Tyler Brady MD Unavailable [phone] Vinod López DO Primary Care Provider [phone] Allergies Active Allergy Reactions Criticality Noted Date [...] 2 (two) times a day. 8 Active Sanford 3 1000 MG Cap Take 1 tablet [...] sotalol therapy 019 PAF (paroxysmal atrial fibrillation) ([facility]) 11/05/2018 Mitral regurgitation 09/02/2018 Diabetes ([facility]) 09/02/2018 Class 3 severe obesity due t o excess calories without serious comorbidity with body mass index (BMI) of 45.0 to 49.9 in adult 09/02/2018 GERD (gastroesophageal reflux disease) 8 A-fib ([facility]) Essential hypertension Family History Medical History Relation Comments [place] Father Relation Status Comments Father (Age 71) [...] Sex Assigned at Female 11/05/2018 3:21 PM 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 Legal Sex Female 6:14 PM CDT Gender Identity Female 11/05/2018 3:21 PM 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 Sexual Orientation Not on file [...] this topic Medical Devices Implanted Type Area Ip Litigation Associate Device Identifier Shelf Expiration Date Model / Serial / Lot Right Atrial Lead-03/17/2019 Implanted:Qty: 1 on 03/17/2019 by Tyler Brady MD Lead Implant Heart [facility] 01/01/20228TC-4 6 / [id number] / Right Ventricular Lead-03/17/2019 Implanted:Qty: 1 on 03/17/2019 by Tyler Brady MD Lead Implant Heart [facility] 02/01/20222087TC-5 2 / [id number] / Sj Pacemaker-03/17 Implanted:Qty: 1 on 03/17/2019 by Tyler Brady MD Pacemaker Left: Chest [facility] 09/03/2020 [id number] / [id number] / Procedures Procedure Name Priority Date/Time Associated Diagnosis Comments OCCULT BLOOD, FECES STAT 10/25/2018 9 :14 AM 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 from Last 3 Months or Most Recently Relevant to Health Maintenance Results * OCCULT BLOOD, FECES (10/25/2018 9:14 AM 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) OCCULT BLOOD FECAL NEGATIVE NEGATIVE 10/25/2018 9:29 AM 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 [facility] STOOL SPECIMEN / Unknown 10/25/2018 9:14 AM 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 Delbert Chowdary MD BODY FLUIDS AND STOOLS ORDERABLE S Final Result [facility] [address] [place] [address], [place] [phone] from Last 3 Months or Most Recently Relevant to Health Maintenance Insurance MEDICARE [facility] [employer]ICARE [employer] Advance Directives Documents on File Type Date Recorded 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 Advance Directives and Living Will 03/18/2019 7:44 AM Signed 11-30-13[facility] Care * Full Code (Latest Code Status on File) Date Activated Date Inactivated Comments 03/18/2019 2:01 AM 03/18/2019 2:52 PM * Full Code Date Activated Date Inactivated Comments 11/05/2018 2:25 PM 11/06/2018 5:57 PM * Full Code Date Activated Date Inactivated Comments 09/18/2018 1:31 PM 09/18/2018 4:45 PM Care Teams Drafter Castings Relationship Specialty Start Date End Date Vinod López DO [address] [place] [id number] PCP - General INTERNAL MEDICINE 03/16/19 Tyler Brady MD [facility] [address] [place] [address] [place] [employer] CARDIOVASCULAR DISEASE 09/01/18
--- OUTSIDE RECORDS SUMMARY | 2025-05-17 02:35 | XMS_ITS | Encounter Summary ---
Author Organization [facility] Address [address] [place] [address] Care Team Providers Care Renewable Energy Consultant Name Role Phone Akil Chan MD Primary Care Provider [phone] Tyler Brady MD Unavailable [phone] Vinod López DO Primary Care Provider [phone] Encounter Details Date Type Department Care Team (Late st Contact Info) Description 12/18/[address] Newspaper Organization Message Enc [facility] at [facility], [facility] [address] [place] [address] Tyler Brady MD [facility]. [facility] [place] [address] [place] [address] Follow Up/Update Social History Tobacco [...] Sex Assigned at Female 11/05/2018 3:21 PM COMPUTER GRAPHIC ARTIST Legal Sex Female 6:14 PM CDT Gender Identity Female 11/05/2018 3:21 PM COMPUTER GRAPHIC ARTIST Sexual Orientation Not on file Occupation Industry Job Start Date Job End Date Not on file Not on file Not on file Not on file documented as of this encounter Progress Notes * Tyler Brady MD - 12/19/2018 6:10 PM CST Hi, I think Mrs. Osorio should see whichever chemical maker she is most comfortable seeing and can see the soonest. Thanks UTER GRAPHIC ARTIST * Jimena Chapman RN - 12/19/2018 2:15 PM CST The chemical maker referral has been in limbo since you [...] from the patient. Forwarded to Dr. Brady. UTER GRAPHIC ARTIST documented in this encounter Plan of Treatment Not on file documented as of this encounter Visit Diagnoses Not on filedocumented in this encounter Care Teams Renewable Energy Consultant Relationship Specialty Start Date End Date Akil Chan MD PCP - General INTERNAL MEDICINE 09/01/18 03/15/19 Vinod López DO [address] [place] [address] PCP - General INTERNAL MEDICINE 03/16/19 Tyler Brady MD [facility] [address] [place] [address] Eddie Assistant Cross Country Coach CARDIOVASCULAR DISEASE 09/01/18 documented as of this encounter
--- OUTSIDE RECORDS SUMMARY | 2025-05-17 02:35 | XMS_ITS | Encounter Summary ---
Author Organization [facility] Address [address] [place] [address] Care Team Providers Care Poured Wall Foreman Name Role Phone Akil Chan MD Primary Care Provider [phone] Tyler Brady MD Unavailable [phone] Vinod López DO Primary Care Provider [phone] Encounter Details Date Type Department Care Team (Late st Contact Info) Description 02/16/2019 hoccer Message Enc [facility] at [facility], [facility] [address] [place] [address] Tyler Brady MD [facility]. [facility] [address] [place], [place] [id number] Question Social History Tobacco Use Types Packs/Day [...] Sex Assigned at Female 11/05/2018 3:21 PM FIELD LOGISTICS COORDINATOR Legal Sex Female 6:14 PM CDT Gender Identity Female 11/05/2018 3:21 PM FIELD LOGISTICS COORDINATOR Sexual Orientation Not on file Occupation Industry Job Start Date Job End Date Not on file Not on file Not on file Not on file documented as of this encounter Plan of Treatment Not on file documented as of this encounter Visit Diagnoses Not on filedocumented in this encounter Care Teams Poured Wall Foreman Relationship Specialty Start Date End Date Akil Chan MD PCP - General INTERNAL MEDICINE 09/01/18 03/15/19 Vinod López DO [address] [facility] [address] [place] [address] PCP - General INTERNAL MEDICINE 03/16/19 Tyler Brady MD [facility] [address] [place] [address] North Reading Extension Associate CARDIOVASCULAR DISEASE 09/01/18 documented as of this encounter
--- OUTSIDE RECORDS SUMMARY | 2025-05-17 02:35 | XMS_ITS | Encounter Summary ---
Author Organization [facility] Address [address] [facility] [address] [place] [address] Care Team Providers Care Scrap Dealer Name Role Phone Akil Chan MD Primary Care Provider [phone] Vinod López DO Primary Care Provider [phone] Thanh Alexandre MD, Flash Unavailable [phone] Encounter Details Date Type Department Care Team (Late st Contact Info) Description 02/12/2017 Orders Only [facility] Provider, MD Lisa [address] [place] [address] Social History Tobacco Use Types Packs/Day Years Used Date Smoking Tobacco: Never Alcohol Use Standard Drinks/Week Comments Yes 0 (1 standard drink = 0.6 oz pur e alcohol) Comments Unknown Sex and Gender Information Value Date Recorded Sex Assigned at Not on file Legal Sex Female 3:20 AM FILM READER Gender Identity Female 11/18/2019 4:40 AM FILM READER Sexual Orientation Straight 11/18/2019 4: 40 AM FILM READER documented as of this encounter Plan of [...] on filedocumented in this encounter Care Teams Scrap Dealer Relationship Specialty Start Date End Date Akil Chan MD [address] [place] [address] PCP - General 02/05/17 11/10/19 Vinod López DO [address] [place] [address] PCP - General Internal Medicine 11/11/19 Flash Law Jr., MD [address] [place] [address] Medical Oncologist/Non Destructive Testing Engineer Medical Oncology 12/14/19 documented as of this encounter
--- OUTSIDE RECORDS SUMMARY | 2025-05-17 02:35 | XMS_ITS | Encounter Summary ---
Author Organization [facility] Address [address] [place] [address] Care Team Providers Care Construction Field Engineer Name Role Phone Akil Chan MD Primary Care Provider [phone] Tyler Brady MD Unavailable [phone] Vinod López DO Primary Care Provider [phone] Encounter Details Date Type Department Care Team (Late st Contact Info) Description 09/10/2018 Kite Message Enc [facility] at [facility], [facility] [address] [place] [address] Tyler Brady MD [facility]. [facility] [address] [place], [place] [id number] Medication Questions Social History Tobacco Use Types [...] Sex Assigned at Female 11/05/2018 3:21 PM E LEARNING MANAGER Legal Sex Female 6:14 PM CDT Gender Identity Female 11/05/2018 3:21 PM E LEARNING MANAGER Sexual Orientation Not on file documented as of this encounter Plan of Treatment Not on file documented as of this encounter Visit Diagnoses Not on filedocumented in this encounter Care Teams Construction Field Engineer Relationship Specialty Start Date End Date Akil Chan MD PCP - General INTERNAL MEDICINE 09/01/18 03/15/19 Vinod López DO [address] [place] [address] [address] [place], [place] [id number] PCP - General INTERNAL MEDICINE 03/16/19 Tyler Brady MD [facility] [address] [place] [address] Snook Phonograph Needle Tip Maker CARDIOVASCULAR DISEASE 09/01/18 documented as of this encounter
--- OUTSIDE RECORDS SUMMARY | 2025-05-17 02:35 | XMS_ITS | Encounter Summary ---
Author Organization [facility] Address [address] [place] [address] Care Team Providers Care Chair Upholsterer Name Role Phone Akil Chan MD Primary Care Provider [phone] Tyler Brady MD Unavailable [phone] Vinod López DO Primary Care Provider [phone] Encounter Details Date Type Department Care Team (Late st Contact Info) Description 02/20/2019 Penumbra Message Enc [facility] at [facility], [facility] [address] [place] [address] Tyler Brady MD [facility]. [facility] [address] [place] [address] Other Social History Tobacco Use [...] Sex Assigned at Female 11/05/2018 3:21 PM COMMERCIAL SERVICE TECHNICIAN Legal Sex Female 6:14 PM CDT Gender Identity Female 11/05/2018 3:21 PM COMMERCIAL SERVICE TECHNICIAN Sexual Orientation Not on file Occupation Industry Job Start Date Job End Date Not on file Not on file Not on file Not on file documented as of this encounter Progress Notes * Margarita Mittal RN - 02/20/2019 10:13 AM CDT Phoned pt, as requested, 6 silicone strips mailed to her address ([facility]). Thank you, LP * Jimena Chapman RN - 02/20/2019 9:10 AM CDT See note. documented in this encounter Plan of Treatment Not on file documented as of this encounter Visit Diagnoses Not on filedocumented in this encounter Care Teams Chair Upholsterer Relationship Specialty Start Date End Date Akil Chan MD PCP - General INTERNAL MEDICINE 09/01/18 03/15/19 Vinod López DO [address] [place] [address] PCP - General INTERNAL MEDICINE 03/16/19 Tyler Brady MD [facility]. [facility] [address] [place] [address] Concord Bullard Operator CARDIOVASCULAR DISEASE 09/01/18 documented as of this encounter
--- OUTSIDE RECORDS SUMMARY | 2025-05-17 02:35 | XMS_ITS | Encounter Summary ---
Author Organization [facility] Address [address] [place] [address] Care Team Providers Care Microstrategy Architect Name Role Phone Akil Chan MD Primary Care Provider [phone] Tyler Brady MD Unavailable [phone] Vinod López DO Primary Care Provider [phone] Encounter Details Date Type Department Care Team (Late st Contact Info) Description 03/10/2019 [employer] Message Enc [facility] at [facility], [facility] [address] [place] [address] Tyler Brady MD [facility]. [facility] [address] [place], [place] [id number] Medication Questions Social History Tobacco Use Types [...] Sex Assigned at Female 11/05/2018 3:21 PM METAL SPRAYER PROTECTIVE COATING Legal Sex Female 6:14 PM CDT Gender Identity Female 11/05/2018 3:21 PM METAL SPRAYER PROTECTIVE COATING Sexual Orientation Not on file Occupation Industry Job Start Date Job End Date Not on file Not on file Not on file Not on file documented as of this encounter Plan of Treatment Not on file documented as of this encounter Visit Diagnoses Not on filedocumented in this encounter Care Teams Microstrategy Architect Relationship Specialty Start Date End Date Akil Chan MD PCP - General INTERNAL MEDICINE 09/01/18 03/15/19 Vinod López DO [address] [facility] [address] [place] [address] PCP - General INTERNAL MEDICINE 03/16/19 Tyler Brady MD [facility] [address] [place] [address] [place] Preschool Disability Teacher CARDIOVASCULAR DISEASE 09/01/18 documented as of this encounter
--- OUTSIDE RECORDS SUMMARY | 2025-05-17 02:35 | XMS_ITS | Encounter Summary ---
Author Organization [facility] Address [address] [place] [address] Care Team Providers Care Viscosity Tester Name Role Phone Akil Chan MD Primary Care Provider [phone] Tyler Brady MD Unavailable [phone] Vinod López DO Primary Care Provider [phone] Encounter Details Date Type Department Care Team (Late st Contact Info) Description 12/18/2018 MyCPlaysinot Message Enc [facility] - [address], [address] [place] [id number] Kal Delcid MD [address] [place] [address] [address] [place] [address] Follow Up/Update Social History Tobacco [...] Sex Assigned at Female 11/05/2018 3:21 PM NEURODIAGNOSTIC TECHNOLOGIST Legal Sex Female 6:14 PM CDT Gender Identity Female 11/05/2018 3:21 PM NEURODIAGNOSTIC TECHNOLOGIST Sexual Orientation Not on file Occupation Industry Job Start Date Job End Date Not on file Not on file Not on file Not on file documented as of this encounter Plan of Treatment Not on file documented as of this encounter Visit Diagnoses Not on filedocumented in this encounter Care Teams Viscosity Tester Relationship Specialty Start Date End Date Akil Chan MD PCP - General INTERNAL MEDICINE 09/01/18 03/15/19 Vinod López DO [address] [address] PCP - General INTERNAL MEDICINE 03/16/19 Tyler Brady MD [facility] [address] [place] [address] [place] Net Web Application Developer CARDIOVASCULAR DISEASE 09/01/18 documented as of this encounter
--- OUTSIDE RECORDS SUMMARY | 2025-05-17 02:35 | XMS_ITS | Encounter Summary ---
Author Organization [facility] Address [address] [place] [address] Care Team Providers Care Floorwalker Name Role Phone Akil Chan MD Primary Care Provider [phone] Tyler Brady MD Unavailable [phone] Vinod López DO Primary Care Provider [phone] Encounter Details Date Type Department Care Team (Late st Contact Info) Description 02/02/2019 CourseHorse Message Enc [facility] at [facility], [facility] [address] [place] [address] Tyler Brady MD [facility]. [facility] [address] [place] [address] Follow Up/Update Social History Tobacco [...] Assigned at Female 11/05/2018 3:21 PM MANAGER ENDOSCOPY Legal Sex Female 6:14 PM CDT Gender Identity Female 11/05/2018 3:21 PM MANAGER ENDOSCOPY Sexual Orientation Not on file Occupation Industry [...] had no further questions. Message to the patient care secretary. * Tyler Brady MD - 02/03/2019 [...] the patient that I will notify Dr. Bardy. The patient had no further questions. Message to Dr. Brady. documented in this encounter Plan of Treatment Not on file documented as of this encounter Results * MOBILE CONTINUOUS TELEMETRY (02/07/2019) us Tyler Brady MD CV VASCULAR ORDERABLES Sagrario kaye Result documented in this encounter Visit Diagnoses Diagnosis A-fib (CMS/HCC HHS/HCC)- Primary Atrial fibrillation documented in this encounter Care Teams Floorwalker Relationship Specialty Start Date End Date Akil Chan MD PCP - General INTERNAL MEDICINE 09/01/18 03/15/19 Vinod López DO [address] [place] [address] [address] [place], [place] [id number] PCP - General INTERNAL MEDICINE 03/16/19 Tyler Brady MD [facility] [address] [place] [address] [place] Manager Telemetry CARDIOVASCULAR DISEASE 09/01/18 documented as of this encounter
--- OUTSIDE RECORDS SUMMARY | 2025-05-17 02:35 | XMS_ITS | Encounter Summary ---
Author Organization [facility] Address [address] [place] [address] Care Team Providers Care Hog Sticker Name Role Phone Akil Chan MD Primary Care Provider [phone] Tyler Brady MD Unavailable [phone] Vinod López DO Primary Care Provider [phone] Encounter Details Date Type Department Care Team (Late st Contact Info) Description 09/05/2018 [employer]focus Neuromedical Message Enc [facility] at [facility], [facility] [address] [place] [address] Tyler Brady MD [facility]. [facility] [address] [place], [place] [id number] Medication Questions Social History Tobacco Use Types [...] Sex Assigned at Female 11/05/2018 3:21 PM LADLE BUILDER Legal Sex Female 6:14 PM CDT Gender Identity Female 11/05/2018 3:21 PM LADLE BUILDER Sexual Orientation Not on file documented as of this encounter Plan of Treatment Not on file documented as of this encounter Visit Diagnoses Not on filedocumented in this encounter Care Teams Hog Sticker Relationship Specialty Start Date End Date Akil Chan MD PCP - General INTERNAL MEDICINE 09/01/18 03/15/19 Vinod López DO [address] [place] [address] [address] [place], [place] [id number] PCP - General INTERNAL MEDICINE 03/16/19 Tyler Brady MD [facility] [address] [place] [address] Goree Die Try Out Worker CARDIOVASCULAR DISEASE 09/01/18 documented as of this encounter
--- OUTSIDE RECORDS SUMMARY | 2025-05-17 02:35 | XMS_ITS | Encounter Summary ---
Author Organization [facility] Address [address] [place] [address] Care Team Providers Care Yarder Engineer Name Role Phone Akil Chan MD Primary Care Provider [phone] Tyler Brady MD Unavailable [phone] Vinod López DO Primary Care Provider [phone] Encounter Details Date Type Department Care Team (Late st Contact Info) Description 10/22/2018 Exhibia Message Enc [facility] at [facility], [facility] [address] [place] [address] Tyler Brady MD [facility]. [facility] [address] [place] [address] Follow Up/Update Social History Tobacco [...] Sex Assigned at Female 11/05/2018 3:21 PM TILE FITTER Legal Sex Female 6:14 PM CDT Gender Identity Female 11/05/2018 3:21 PM TILE FITTER Sexual Orientation Not on file Occupation Industry [...] the patient. Message sent to Dr. Brady. FITTER documented in this encounter Plan of Treatment Not on file documented as of this encounter Visit Diagnoses Not on filedocumented in this encounter Care Teams Yarder Engineer Relationship Specialty Start Date End Date Akil Chan MD PCP - General INTERNAL MEDICINE 09/01/18 03/15/19 Vinod López DO [address] [facility] [address] [place], [place] [address] PCP - General INTERNAL MEDICINE 03/16/19 Tyler Brady MD [facility]. [place] [address] [place] [address] [place] Fnp CARDIOVASCULAR DISEASE 09/01/18 documented as of this encounter
--- OUTSIDE RECORDS SUMMARY | 2025-05-17 02:35 | XMS_ITS | Encounter Summary ---
Author Organization [facility] Address [address] [place] [address] Care Team Providers Care Rubber Liner Name Role Phone Akil Chan MD Primary Care Provider [phone] Tyler Brady MD Unavailable [phone] Vinod López DO Primary Care Provider [phone] Encounter Details Date Type Department Care Team (Late st Contact Info) Description 02/16/2019 CBTec Message Enc [facility] at [facility], [facility] [address] [place] [address] Tyler Brady MD [facility]. [facility] [address] [place], [place] [address] Follow Up/Update Social History Tobacco Use Types [...] Sex Assigned at Female 11/05/2018 3:21 PM DRY DIP WORKER Legal Sex Female 6:14 PM CDT Gender Identity Female 11/05/2018 3:21 PM DRY DIP WORKER Sexual Orientation Not on file Occupation Industry Job Start Date Job End Date Not on file Not on file Not on file Not on file documented as of this encounter Plan of Treatment Not on file documented as of this encounter Visit Diagnoses Not on filedocumented in this encounter Care Teams Rubber Liner Relationship Specialty Start Date End Date Akil Chan MD PCP - General INTERNAL MEDICINE 09/01/18 03/15/19 Vinod López DO [address] [employer] [address] [place] [address] PCP - General INTERNAL MEDICINE 03/16/19 Tyler Brady MD [facility] [address] [place] [address] [place] Batch And Furnace Manager CARDIOVASCULAR DISEASE 09/01/18 documented as of this encounter
--- OUTSIDE RECORDS SUMMARY | 2025-05-17 02:35 | XMS_ITS | Encounter Summary ---
Author Organization [facility] Address [address] [place] [address] Care Team Providers Care Boat Engine Mechanic Name Role Phone Akil Chan MD Primary Care Provider [phone] Tyler Brady MD Unavailable [phone] Vinod López DO Primary Care Provider [phone] Encounter Details Date Type Department Care Team (Late st Contact Info) Description 02/24/2019 Right Media Message Enc [facility] at [facility], [facility] [address] [place] [address] Tyler Brady MD [facility]. [facility] [address] [place] [address] Other Social History Tobacco Use [...] Sex Assigned at Female 11/05/2018 3:21 PM READING ASSISTANT Legal Sex Female 6:14 PM CDT Gender Identity Female 11/05/2018 3:21 PM READING ASSISTANT Sexual Orientation Not on file Occupation Industry Job Start Date Job End Date Not on file Not on file Not on file Not on file documented as of this encounter Plan of Treatment Not on file documented as of this encounter Visit Diagnoses Not on filedocumented in this encounter Care Teams Boat Engine Mechanic Relationship Specialty Start Date End Date Akil Chan MD PCP - General INTERNAL MEDICINE 09/01/18 03/15/19 Vinod López DO [address] [facility] [address] [place] [address] PCP - General INTERNAL MEDICINE 03/16/19 Tyler Brady MD [facility] [address] [place] [address] [place] Fiction And Nonfiction Writer Prose CARDIOVASCULAR DISEASE 09/01/18 documented as of this encounter
--- OUTSIDE RECORDS SUMMARY | 2025-05-17 02:35 | XMS_ITS | Encounter Summary ---
Author Organization [facility] Address [address] [place] [address] Care Team Providers Care Structural Steel Trades Worker Name Role Phone Akil Chan MD Primary Care Provider [phone] Tyler Brady MD Unavailable [phone] Vinod López DO Primary Care Provider [phone] Reason for Visit * Reason Onset Date Comments Concerns 10/22/2018 Encounter Details Date Type Department Care Team (Late st Contact Info) Description 10/22/2018 Recovers Message [facility] at [facility], [place] [address] [place] [address] Tyler Brady MD [facility] [address] [place] [address] Follow Up/Update Social History Tobacco [...] Sex Assigned at Female 11/05/2018 3:21 PM DIRECTOR OF ACADEMIC Legal Sex Female 6:14 PM CDT Gender Identity Female 11/05/2018 3:21 PM DIRECTOR OF ACADEMIC Sexual Orientation Not on file Occupation Industry [...] had no further questions. Message to the police department secretary. CTOR OF ACADEMIC * Tyler Brady MD - 10/22/2018 9:11 [...] when its convenient to her. Andrés Avalos CTOR OF ACADEMIC * Jimena Chapman RN - 10/22/2018 8:54 [...] the patient. Message sent to Dr. Brady. CTOR OF ACADEMIC documented in this encounter Plan of Treatment Not on file documented as of this encounter Visit Diagnoses Not on filedocumented in this encounter Care Teams Structural Steel Trades Worker Relationship Specialty Start Date End Date Akil Chan MD PCP - General INTERNAL MEDICINE 09/01/18 03/15/19 Vinod López DO [facility] [address] [place], [place] [id number] PCP - General INTERNAL MEDICINE 03/16/19 Tyler Brady MD [facility]. [place] [address] [place] [address] [place] Therapist'S Assistant CARDIOVASCULAR DISEASE 09/01/18 documented as of this encounter
--- OUTSIDE RECORDS SUMMARY | 2025-05-17 02:35 | XMS_ITS | Encounter Summary ---
Author Organization [facility] Address [address] [place] [address] Care Team Providers Care Non Destructive Testing Inspector Name Role Phone Akil Chan MD Primary Care Provider [phone] Tyler Brady MD Unavailable [phone] Vinod López DO Primary Care Provider [phone] Encounter Details Date Type Department Care Team (Late st Contact Info) Description 03/05/2019 Bosideng Message Enc [facility], [facility] [address] [place] [address] Tyler Brady MD [facility]. [facility] [address] [place], [place] [id number] Medication Questions Social History Tobacco Use Types [...] Sex Assigned at Female 11/05/2018 3:21 PM HOOP BENDING MACHINE OPERATOR Legal Sex Female 6:14 PM CDT Gender Identity Female 11/05/2018 3:21 PM HOOP BENDING MACHINE OPERATOR Sexual Orientation Not on file Occupation Industry Job Start Date Job End Date Not on file Not on file Not on file Not on file documented as of this encounter Plan of Treatment Not on file documented as of this encounter Visit Diagnoses Not on filedocumented in this encounter Care Teams Non Destructive Testing Inspector Relationship Specialty Start Date End Date Akil Chan MD PCP - General INTERNAL MEDICINE 09/01/18 03/15/19 Vinod López DO [address] [employer] [facility] [address] [place] [address] PCP - General INTERNAL MEDICINE 03/16/19 Tyler Brady MD [facility] [address] [place] [address] Jeremiah Executive Sales Assistant CARDIOVASCULAR DISEASE 09/01/18 documented as of this encounter
--- OUTSIDE RECORDS SUMMARY | 2025-05-17 02:35 | XMS_ITS | Encounter Summary ---
Author Organization [facility] Address [address] [place] [address] Care Team Providers Care Display And Banner Designer Name Role Phone Akil Chan MD Primary Care Provider [phone] Tyler Brady MD Unavailable [phone] Vinod López DO Primary Care Provider [phone] Encounter Details Date Type Department Care Team (Late st Contact Info) Description 12/01/2018 DataVote Message Enc [facility] at [facility], [facility] [address] [place] [address] Tyler Brady MD [facility]. [facility] [address] [place], [place] [id number] Test Results Social History Tobacco Use Types [...] Sex Assigned at Female 11/05/2018 3:21 PM OBSTETRICS NURSE Legal Sex Female 6:14 PM CDT Gender Identity Female 11/05/2018 3:21 PM OBSTETRICS NURSE Sexual Orientation Not on file Occupation Industry Job Start Date Job End Date Not on file Not on file Not on file Not on file documented as of this encounter Progress Notes * Jimena Chapman RN - 12/01/2018 10:49 AM CST See patient record request - thank you. ETRICS NURSE documented in this encounter Plan of Treatment Not on file documented as of this encounter Visit Diagnoses Not on filedocumented in this encounter Care Teams Display And Banner Designer Relationship Specialty Start Date End Date Akil Chan MD PCP - General INTERNAL MEDICINE 09/01/18 03/15/19 Vinod López DO [address] [place], [place] [address] [id number] PCP - General INTERNAL MEDICINE 03/16/19 Tyler Brady MD [facility] [address] [place] [address] [place] CARDIOVASCULAR DISEASE 09/01/18 documented as of this encounter
--- OUTSIDE RECORDS SUMMARY | 2025-05-17 02:35 | XMS_ITS | Encounter Summary ---
Author Organization [facility] Address [address] [place] [address] Care Team Providers Care Social Problems Specialist Name Role Phone Akil Chan MD Primary Care Provider [phone] Tyler Brady MD Unavailable [phone] Vinod López DO Primary Care Provider [phone] Encounter Details Date Type Department Care Team (Late st Contact Info) Description 11/22/2018 [employer] Message Enc [facility] at [facility], [facility] [address] [place] [address] Tyler Brady MD [facility]. [facility] [address] [place] [address] RE: Medication Questions Social History [...] Sex Assigned at Female 11/05/2018 3:21 PM EDITOR [place] Legal Sex Female 6:14 PM CDT Gender Identity Female 11/05/2018 3:21 PM EDITOR [place] Sexual Orientation Not on file Occupation Industry Job Start Date Job End Date Not on file Not on file Not on file Not on file documented as of this encounter Plan of Treatment Not on file documented as of this encounter Visit Diagnoses Not on filedocumented in this encounter Care Teams Social Problems Specialist Relationship Specialty Start Date End Date Akil Chan MD PCP - General INTERNAL MEDICINE 09/01/18 03/15/19 Vinod López DO 2090 [facility] [address] [place] [address] PCP - General INTERNAL MEDICINE 03/16/19 Tyler Brady MD [facility] [address] [place] [address] Jeannette Patient Svcs Mgr CARDIOVASCULAR DISEASE 09/01/18 documented as of this encounter
--- OUTSIDE RECORDS SUMMARY | 2025-05-17 02:35 | XMS_ITS | Encounter Summary ---
Author Organization [facility] Address [address] [place] [address] Care Team Providers Care Disposal Operator Name Role Phone Akil Chan MD Primary Care Provider [phone] Tyler Brady MD Unavailable [phone] Vinod López DO Primary Care Provider [phone] Encounter Details Date Type Department Care Team (Late st Contact Info) Description 11/03/2018 MangoPlate Message Enc [facility] at [facility], [facility] [address] [place] [address] Tyler Brady MD [facility]. [facility] [address] [place] [address] Follow Up/Update Social History Tobacco [...] Sex Assigned at Female 11/05/2018 3:21 PM LINE DECORATOR Legal Sex Female 6:14 PM CDT Gender Identity Female 11/05/2018 3:21 PM LINE DECORATOR Sexual Orientation Not on file Occupation Industry Job Start Date Job End Date Not on file Not on file Not on file Not on file documented as of this encounter Plan of Treatment Not on file documented as of this encounter Visit Diagnoses Not on filedocumented in this encounter Care Teams Disposal Operator Relationship Specialty Start Date End Date Akil Chan MD PCP - General INTERNAL MEDICINE 09/01/18 03/15/19 Vinod López DO 2090 [facility] [address] [place] [address] PCP - General INTERNAL MEDICINE 03/16/19 Tyler Brady MD [facility] [address] [place] [address] [place] Purification Supervisor CARDIOVASCULAR DISEASE 09/01/18 documented as of this encounter
--- OUTSIDE RECORDS SUMMARY | 2025-05-17 02:36 | XMS_ITS | Clinical Summary ---
Author Organization [facility] Address [address] [place] [address] Care Team Providers Care Hospital Insurance Clerk Name Role Phone Vinod López Primary Care Provider [phone] Source Comments [facility],non-owned Affiliates and Associated Physician Practices is amultiple site organization consisting of ambulatory clinics and hospital sitesin [place], [place], [place] and [place]. This disclosure is being madepursuant to the Care Everywhere program and may not contain all information available regarding this patient. Last updated 18.[facility] Allergies Active Allergy Reactions Criticality Noted Date [...] on file Legal Sex Female 8:43 PM LINK WIRE FABRIC MACHINE OPERATOR Gender Identity Not on file Sexual Orientation Not on file Last Filed Vital Signs Vital Sign Reading Time Taken Comments Blood Pressure 136/82 11/07/2020 10:57 AM LINK WIRE FABRIC MACHINE OPERATOR Pulse 70 11/07/2020 10:57 AM LINK WIRE FABRIC MACHINE OPERATOR Temperature - - Respiratory Rate 12 11/07/2020 10:5 7 AM LINK WIRE FABRIC MACHINE OPERATOR Oxygen Saturation - - Inhaled Oxygen Concentration - - Weight 124.4 kg (274 lb 3.2 oz) 021 10:57 AM LINK WIRE FABRIC MACHINE OPERATOR Height 160 cm (5' 3) 11/07/2020 10:57 AM LINK WIRE FABRIC MACHINE OPERATOR Body Mass Index 48.57 11/07/2020 10:57 AM LINK WIRE FABRIC MACHINE OPERATOR Plan of Treatment Health Maintenance Due Date [...] 02/22/2021, 01/25/2021 DEPRESSION SCREENING 11/04/2024 INFLUENZA VACCINE (#1) 2025 2, 09/20/2021, 08/27/2020, Additional history exists HEPATITIS B [...] SAM Subscriber ID:Not on file (Home) Address: [address] [place] [id number] Payer ID:Not on file Group ID:Not on file Type:Self Pay Address: [place], [place] Care Teams Hospital Insurance Clerk Relationship Specialty Start Date End Date Vinod López DO [address] [place], [place] [address] PCP - General Internal Medicine 04/03/19
--- OUTSIDE RECORDS SUMMARY | 2025-05-17 02:36 | XMS_ITS | Encounter Summary ---
Author Organization [facility] Address [address] [place] [address] Care Team Providers Care Freelance Translator Name Role Phone Akil Chan MD Primary Care Provider [phone] Tyler Brady MD Unavailable [phone] Vinod López DO Primary Care Provider [phone] Encounter Details Date Type Department Care Team (Late st Contact Info) Description 09/03/2018 Abstract [facility] at [address] [address] Torres Oshea [place] Social History [...] Sex Assigned at Female 11/05/2018 3:21 PM DOCKET CLERK Legal Sex Female 6:14 PM CDT Gender Identity Female 11/05/2018 3:21 PM DOCKET CLERK Sexual Orientation Not on file documented as [...] on filedocumented in this encounter Care Teams Freelance Translator Relationship Specialty Start Date End Date Akil Chan MD PCP - General INTERNAL MEDICINE 09/01/18 03/15/19 Vinod López DO [address] [facility] [address] [place] [address] PCP - General INTERNAL MEDICINE 03/16/19 Tyler Brady MD [facility] [address] [place] [address] [place] Technician Support Engineer CARDIOVASCULAR DISEASE 09/01/18 documented as of this encounter
--- OUTSIDE RECORDS SUMMARY | 2025-05-17 02:36 | XMS_ITS | Encounter Summary ---
Author Organization [facility] Address [address] [place] [address] Care Team Providers Care Lamp Cleaner Name Role Phone Akil Chan MD Primary Care Provider [phone] Tyler Brady MD Unavailable [phone] Vinod López DO Primary Care Provider [phone] Encounter Details Date Type Department Care Team (Late st Contact Info) Description 10/13/2018 Magazinga Message [facility] at [facility], [facility] [address] [place] [address] Tyler Brady MD [facility]. [facility] [address] [place], [place] [id number] Medication Questions Social History Tobacco Use Types [...] Sex Assigned at Female 11/05/2018 3:21 PM ENVELOPE SEALER OPERATOR Legal Sex Female 6:14 PM CDT Gender Identity Female 11/05/2018 3:21 PM ENVELOPE SEALER OPERATOR Sexual Orientation Not on file Occupation Industry Job Start Date Job End Date Not on file Not on file Not on file Not on file documented as of this encounter Plan of Treatment Not on file documented as of this encounter Visit Diagnoses Not on filedocumented in this encounter Care Teams Lamp Cleaner Relationship Specialty Start Date End Date Akil Chan MD PCP - General INTERNAL MEDICINE 09/01/18 03/15/19 Vinod López DO 2090 [employer] [facility] [address] [place] [address] PCP - General INTERNAL MEDICINE 03/16/19 Tyler Brady MD [facility] [address] [place] [address] [place] Stem Setter CARDIOVASCULAR DISEASE 09/01/18 documented as of this encounter
--- OUTSIDE RECORDS SUMMARY | 2025-05-17 02:36 | XMS_ITS | Referral Summary ---
Author Organization [facility] Address [address] [place] [address] Care Team Providers Care Wealth Management Consultant Name Role Phone Vinod López Primary Care Provider [phone] Thanh Alexandre MD, Flash Unavailable [phone] Encounters Date Type Department Care Team Description 05/13/2025 Orders Only [facility] Cardiology [address] [place] [id number] Tre Herrera MD from Last 3 Months Allergies Active Allergy Reactions Criticality Noted Date [...] by mouth daily. 0 8 Active vit C,L-Tz-gyalq-lut ein-zeaxan [id number] bx-cnho-lm-mg capsule Take 1 capsule by mouth 2 [...] on file Legal Sex Female 3:20 AM OWNER MANAGER Gender Identity Female 11/18/2019 4:40 AM OWNER MANAGER Sexual Orientation Straight 11/18/2019 4: 40 AM OWNER MANAGER Last Filed Vital Signs Vital Sign Reading Time Taken Comments Blood Pressure 146/83 01/06/2020 2:08 PM OWNER MANAGER rn notified Pulse 61 01/06/2020 2:08 PM OWNER MANAGER Temperature 36.8 C (98.3 F) 01/06/2020 2:08 PM OWNER MANAGER Respiratory Rate 16 01/06/2020 2:08 PM OWNER MANAGER Oxygen Saturation 97% 01/06/2020 2:0 8 PM OWNER MANAGER Inhaled Oxygen Concentration - - Weight 124 kg (273 lb 6.4 oz) 0 2:08 PM OWNER MANAGER Height 161.3 cm (5' 3.5) 01/06/2020 2: 08 PM OWNER MANAGER Body Mass Index 47.66 01/06/2020 2:08 PM OWNER MANAGER Plan of Treatment Not on file Procedures Procedure Name Priority Date/Time Associated Diagnosis Comments CARDIOLOGY DOCUMENT SCAN Routine 05/08/2025 8:46 AM CDT from Last 3 Months Results * Cardiology Document Scan (05/08/2025 8:46 AM CDT) Anatomical Region Laterality Modality Other Tre Herrera MD CV CARDIAC SERVICES PROCEDU RES Final Result from Last 3 Months Insurance MEDICARE [employer] LIFE MEDICARE FOR LIFE MEDICARE FOR LIFE Care Teams Wealth Management Consultant Relationship Specialty Start Date End Date Vinod López DO PCP - General Internal Medicine 11/11/19 Flash Law Jr., MD Medical Oncologist/Tourist Information Assistant Medical Oncology 12/14/19
--- OUTSIDE RECORDS SUMMARY | 2025-05-17 02:36 | XMS_ITS | Encounter Summary ---
Author Organization [facility] Address [address] [place] [address] Care Team Providers Care Windows Application Packager Name Role Phone Tyler Brady MD Unavailable [phone] Vinod López DO Primary Care Provider [phone] Encounter Details Date Type Department Care Team (Late st Contact Info) Description 03/23/2019 [employer] Message [facility] at [facility], [facility] [address] [place] [address] Tyler Brady MD [facility]. [facility] [address] [place], [place] [id number] Medication Questions Social History Tobacco Use Types [...] Sex Assigned at Female 11/05/2018 3:21 PM OPTICAL GLASS SAWYER Legal Sex Female 6:14 PM CDT Gender Identity Female 11/05/2018 3:21 PM OPTICAL GLASS SAWYER Sexual Orientation Not on file Occupation Industry [...] on filedocumented in this encounter Care Teams Windows Application Packager Relationship Specialty Start Date End Date Vinod López DO 2089 [facility] [address] [place] [address] PCP - General INTERNAL MEDICINE 03/16/19 Tyler Brady MD [facility] [address] [place] [address] [place] Patrol Commander CARDIOVASCULAR DISEASE 09/01/18 documented as of this encounter
--- OUTSIDE RECORDS SUMMARY | 2025-05-17 02:36 | XMS_ITS | Encounter Summary ---
Author Organization [facility] Address [address] [place] [address] Care Team Providers Care Associate Manager Name Role Phone Akil Chan MD Primary Care Provider [phone] Tyler Brady MD Unavailable [phone] Vinod López DO Primary Care Provider [phone] Encounter Details Date Type Department Care Team (Late st Contact Info) Description 10/13/2018 Clean Membranes Message [facility] at [facility], [facility] [address] [place] [address] Tyler Brady MD [facility]. [facility] [address] [place], [place] [phone] Medication Questions Social History Tobacco Use Types [...] Sex Assigned at Female 11/05/2018 3:21 PM LINING MACHINE TENDER Legal Sex Female 6:14 PM CDT Gender Identity Female 11/05/2018 3:21 PM LINING MACHINE TENDER Sexual Orientation Not on file Occupation Industry Job Start Date Job End Date Not on file Not on file Not on file Not on file documented as of this encounter Plan of Treatment Not on file documented as of this encounter Visit Diagnoses Not on filedocumented in this encounter Care Teams Associate Manager Relationship Specialty Start Date End Date Akil Chan MD PCP - General INTERNAL MEDICINE 09/01/18 03/15/19 Vinod López DO 2090 [facility] [address] [place] [address] PCP - General INTERNAL MEDICINE 03/16/19 Tyler Brady MD [facility] [address] [place] [address] Dorr Groundskeeping Maintenance Worker CARDIOVASCULAR DISEASE 09/01/18 documented as of this encounter
--- OUTSIDE RECORDS SUMMARY | 2025-05-17 02:36 | XMS_ITS | Encounter Summary ---
Author Organization [facility] Address [address] [place] [address] Care Team Providers Care Fourth Hand Name Role Phone Akil Chan MD Primary Care Provider [phone] Tyler Brady MD Unavailable [phone] Vinod López DO Primary Care Provider [phone] Encounter Details Date Type Department Care Team (Late st Contact Info) Description 09/03/2018 EventBuilder Message Enc [facility] at [facility], [facility] [address] [place] [address] Tyler Brady MD [facility]. [facility] [address] [place], [place] [id number] Follow Up/Update Social History Tobacco Use Types [...] Sex Assigned at Female 11/05/2018 3:21 PM SOCIAL WORK INSTRUCTOR Legal Sex Female 6:14 PM CDT Gender Identity Female 11/05/2018 3:21 PM SOCIAL WORK INSTRUCTOR Sexual Orientation Not on file documented as of this encounter Plan of Treatment Not on file documented as of this encounter Visit Diagnoses Not on filedocumented in this encounter Care Teams Fourth Hand Relationship Specialty Start Date End Date Akil Chan MD PCP - General INTERNAL MEDICINE 09/01/18 03/15/19 Vinod López DO [address] [place] [address] 204 [place], [place] [id number] PCP - General INTERNAL MEDICINE 03/16/19 Tyler Brady MD [facility] [address] [place] [address] [place] Boilers And Pressure Vessels Inspector CARDIOVASCULAR DISEASE 09/01/18 documented as of this encounter
--- OUTSIDE RECORDS SUMMARY | 2025-05-17 02:36 | XMS_ITS | Encounter Summary ---
Author Organization [facility] Address [address] [place] [address] Care Team Providers Care Copy Center Operator Name Role Phone Tyler Brady MD Unavailable [phone] Vinod López DO Primary Care Provider [phone] Encounter Details Date Type Department Care Team (Late st Contact Info) Description 03/16/2019 [employer] Message [facility] at [facility], [facility] [address] [place] [address] Tyler Brady MD [facility]. [facility] [address] [place], [place] [phone] Follow Up/Update Social History Tobacco Use Types [...] Sex Assigned at Female 11/05/2018 3:21 PM INTELLECTUAL PROPERTY LAWYER Legal Sex Female 6:14 PM CDT Gender Identity Female 11/05/2018 3:21 PM INTELLECTUAL PROPERTY LAWYER Sexual Orientation Not on file Occupation Industry [...] on filedocumented in this encounter Care Teams Copy Center Operator Relationship Specialty Start Date End Date Vinod López DO 0 [employer] [facility] [address] [place] [address] PCP - General INTERNAL MEDICINE 03/16/19 Tyler Brady MD [facility] [address] [place] [address] [employer] CARDIOVASCULAR DISEASE 09/01/18 documented as of this encounter
--- OUTSIDE RECORDS SUMMARY | 2025-05-17 02:36 | XMS_ITS | Continuity of Care Document ---
Author Name [facility] Organization [facility] Care Team Providers Care Electronics Department Manager Name Role Phone [facility] Unavailable Unavailable Medications Combined list of outpatient [...] BOEHRINGER ING., 30 ea. BOTTLE Cancele d [id number] : 2023 0 Pharmac y Data Transac tion Service Facilit y JARDIANCE (EMPAGLIFLO ZIN), 10 MG, TABLET, ORAL, BOEHRINGER ING., 90 ea. BOTTLE Active [id number] 2023 90 Pharmac y Data Transac tion Service Facilit y METOPROLOL TARTRATE (metoprolol tartrate), 50 MG, TABLET, ORAL, [employer] 1000 ea. BOTTLE Active [id number] 2023 180 Pharmac y Data Transac tion Service Facilit y Allergies, Adverse Reactions, Alerts Combined list of allergies from Department of Defense and Veterans Affairs facilities. It does not include entries that were removed or entered in error. Substance Category Reaction Severity Reaction type Status Date Reported Comments Source SULFA-DRUGS Drug allergy (disorder) Unknown active 10/01/2006 [facility] Jayesh RIZVI ([facility]) Immunizations Combined list of available immunizations from the Department of Defense and Veterans Affairs facilities. Immunization Series Date Given Administered By Site Reaction Lot Number CVX Code Drug Ledge Man Status Comments Source Influenza vaccine, quadrivalent, adjuvanted 2020 YVAN, () Not Given Influenza vaccine, quadrival ent, adjuvante d [facility] COVID-19, mRNA, LNP-S, PF, 30 mcg/0.3 mL dose 2020 TONY, [place] (PFR) Not Given COVID-19, mRNA, LNP-S, PF, 30 mcg/0.3 mL dose DoD COVID-19, mRNA, LNP-S, PF, 30 mcg/0.3 mL dose 2020 YVAN, [place] (PFR) Not Given COVID-19, mRNA, LNP-S, PF, 30 mcg/0.3 mL dose DoD COVID-19, mRNA, LNP-S, PF, 30 mcg/0.3 mL dose 2020 CORINNE, [place] (PFR) Not Given COVID-19, mRNA, LNP-S, PF, 30 mcg/0.3 mL dose DoD zoster live 2013 SHEILA URENA DO () Not Given zoster live DoD Social History Combined list of available smoking, tobacco, and other social history from Department of Defense and Veterans Affairs facilities. Social History Type Response Date Comment [facility] e This section is an empty social history section. DoD
--- OUTSIDE RECORDS SUMMARY | 2025-05-17 02:36 | XMS_ITS | Clinical Summary ---
Author Organization [facility] Address [address] [place] [address] Care Team Providers Care Clerical Adjuster Name Role Phone MaribelVinod Primary Care Provider [phone] Thanh Alexandre MD, Flash Unavailable [phone] Allergies Active Allergy Reactions Criticality Noted Date [...] by mouth daily. 0 8 Active vit C,Q-It-wtzwz-lut ein-zeaxan [id number] rw-yrss-wa-mg capsule Take 1 capsule by mouth 2 [...] fracture of proximal end of humerus 08/03 Encounters Date Type Department Care Team Description 05/13/[address] [facility] Medical Group Cardiology [address] [place] [id number] Tre Herrera MD from Last 3 Months Immunizations Immunization Administration Dates Next Due Influenza, [...] : Myocardial infarction Heart disease Father Wilbert Lopez Cancer Mother Katharina Lopez Lung cancer Mother [...] Sister 1 Keshia Hamlin Sister 2 Bell Humphrey Sister 3 Corinne Lopez Son Bill Osorio Social History Tobacco Use Types Packs/Day Years Used Date Smoking Tobacco: Never Smokeless Tobacco: Never Alcohol Use Standard Drinks/Week Comments Yes 0 (1 standard drink = 0.6 oz pure alcohol) Very rarely - wine holiday meal Comments Unknown Sex and Gender Information Value Date Recorded Sex Assigned at Not on file Legal Sex Female 3:20 AM FAMILY PARTNER Gender Identity Female 11/18/2019 4:40 AM FAMILY PARTNER Sexual Orientation Straight 11/18/2019 4: 40 AM FAMILY PARTNER Obstetrics History Last Filed Vital Signs Vital Sign Reading Time Taken Comments Blood Pressure 146/83 01/06/2020 2:08 PM FAMILY PARTNER rn notified Pulse 61 01/06/2020 2:08 PM FAMILY PARTNER Temperature 36.8 C (98.3 F) 01/06/2020 2:08 PM FAMILY PARTNER Respiratory Rate 16 01/06/2020 2:08 PM FAMILY PARTNER Oxygen Saturation 97% 01/06/2020 2:0 8 PM FAMILY PARTNER Inhaled Oxygen Concentration - - Weight 124 kg (273 lb 6.4 oz) 0 2:08 PM FAMILY PARTNER Height 161.3 cm (5' 3.5) 01/06/2020 2: 08 PM FAMILY PARTNER Body Mass Index 47.66 01/06/2020 2:08 PM FAMILY PARTNER Plan of Treatment Health Maintenance Due Date [...] 2025 9, 08/18/2017, 09/04/2016, Additional history exists Procedures Procedure Name Priority Date/Time Associated Diagnosis Comments CARDIOLOGY DOCUMENT SCAN Routine 05/08/2025 8:46 AM CDT from Last 3 Months Results * Cardiology Document Scan (05/08/2025 8:46 AM CDT) Anatomical Region Laterality Modality Other Tre Herrera MD CV CARDIAC SERVICES PROCEDU RES Final Result from Last 3 Months Insurance MEDICARE [employer] LIFE MEDICARE FOR LIFE MEDICARE FOR LIFE Care Teams Clerical Adjuster Relationship Specialty Start Date End Date Vinod López DO PCP - General Internal Medicine 11/11/19 Flash Law Jr., MD Medical Oncologist/Production Cloth Cutter Medical Oncology 12/14/19
--- OUTSIDE RECORDS SUMMARY | 2025-05-17 02:36 | XMS_ITS | Encounter Summary ---
Author Organization [facility] Address [address] [place] [address] Care Team Providers Care Electrical Development Engineer Name Role Phone Tyler Brady MD Unavailable [phone] Vinod López DO Primary Care Provider [phone] Encounter Details Date Type Department Care Team (Late st Contact Info) Description 03/19/2019 Coup[employer] Message [employer] [facility] at [facility], [facility] [address] [place] [address] Tyler Brady MD [facility]. [facility] [address] [place], [place] [id number] Follow Up/Update Social History Tobacco Use Types [...] Sex Assigned at Female 11/05/2018 3:21 PM PET SITTER Legal Sex Female 6:14 PM CDT Gender Identity Female 11/05/2018 3:21 PM PET SITTER Sexual Orientation Not on file Occupation Industry [...] on filedocumented in this encounter Care Teams Electrical Development Engineer Relationship Specialty Start Date End Date Vinod López DO [address] [facility] [address] [place] [address] PCP - General INTERNAL MEDICINE 03/16/19 Tyler Brady MD [facility] [address] [place] [address] [employer] Counselor CARDIOVASCULAR DISEASE 09/01/18 documented as of this encounter
--- OUTSIDE RECORDS SUMMARY | 2025-05-17 02:36 | XMS_ITS | Encounter Summary ---
Author Organization [facility] Address [address] [place] [address] Care Team Providers Care Kitchen Food Server Name Role Phone Tyler Brady MD Unavailable [phone] Vinod López DO Primary Care Provider Encounter Details Date Type Department Care Team (Late st Contact Info) Description 03/23/2019 Alignment Acquisitions Message [employer] [facility] at [facility], [facility] [address] [place] [address] Tyler Brady MD [facility]. [facility] [address] [place], [place] [phone] Medication Questions Social History Tobacco Use Types [...] Assigned at Female 11/05/2018 3:21 PM CERTIFIED TRAVEL COUNSELOR Legal Sex Female 6:14 PM CDT Gender Identity Female 11/05/2018 3:21 PM CERTIFIED TRAVEL COUNSELOR Sexual Orientation Not on file Occupation Industry [...] on filedocumented in this encounter Care Teams Kitchen Food Server Relationship Specialty Start Date End Date Vinod López DO [address] [facility] [address] [place] [address] PCP - General INTERNAL MEDICINE 03/16/19 Tyler Brady MD [facility] [address] [place] [address] [place] [facility] Phys[facility] CARDIOVASCULAR DISEASE 09/01/18 documented as of this encounter
--- OUTSIDE RECORDS SUMMARY | 2025-05-17 02:36 | XMS_ITS | Encounter Summary ---
Author Organization [facility] Address [address] [place] [address] Care Team Providers Care Regional Maintenance Manager Name Role Phone Vinod López DO Primary Care Provider [phone] Thanh Alexandre MD, Flash Unavailable [phone] Encounter Details Date Type Department Care Team (Late st Contact Info) Description 05/13/[address] [facility] Medical Group Cardiology [address] [place] [address] Tre Herrera MD [address] [place] [address] [address] Social History Tobacco Use Types Packs/Day Years Used Date Smoking Tobacco: Never Smokeless Tobacco: Never Alcohol Use Standard Drinks/Week Comments Yes 0 (1 standard drink = 0.6 oz pure alcohol) Very rarely - wine holiday meal Comments Unknown Sex and Gender Information Value Date Recorded Sex Assigned at Not on file Legal Sex Female 3:20 AM HEEL SPRAYER Gender Identity Female 11/18/2019 4:40 AM HEEL SPRAYER Sexual Orientation Straight 11/18/2019 4: 40 AM HEEL SPRAYER documented as of this encounter Plan of Treatment Not on file documented as of this encounter Procedures Procedure Name Priority Date/Time Associated Diagnosis Comments CARDIOLOGY DOCUMENT SCAN Routine 05/08/2025 8:46 AM CDT documented in this encounter Results * Cardiology Document Scan (05/08/2025 8:46 AM CDT) Anatomical Region Laterality Modality Other Tre Herrera MD CV CARDIAC SERVICES PROCEDU RES Final Result documented in this encounter Visit Diagnoses Not on filedocumented in this encounter Care Teams Regional Maintenance Manager Relationship Specialty Start Date End Date Vinod López DO PCP - General Internal Medicine 11/11/19 Flash Law Jr., MD Medical Oncologist/Mate Ship Medical Oncology 12/14/19 documented as of this encounter
--- OUTSIDE RECORDS SUMMARY | 2025-05-17 02:36 | XMS_ITS | Encounter Summary ---
Author Organization [facility] Address [facility] [place] [address] Care Team Providers Care Rosin Barrel Filler Name Role Phone Tyler Brady MD Unavailable [phone] Vinod López DO Primary Care Provider [phone] Encounter Details Date Type Department Care Team (Late st Contact Info) Description 03/27/2019 BRAIN Message [employer] [facility] at [facility], [facility] [address] [place] [address] Tyler Brady MD [facility]. 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
--- OUTSIDE RECORDS SUMMARY | 2025-05-17 02:36 | XMS_ITS | Encounter Summary ---
Author Organization [facility] Address [address] [place] [address] Care Team Providers Care Drainage Engineer Name Role Phone Akil Chan MD Primary Care Provider [phone] Tyler Brady MD Unavailable [phone] Vinod López DO Primary Care Provider [phone] Encounter Details Date Type Department Care Team (Late st Contact Info) Description 09/17/2018 Hospital Orders Only [facility] at [facility], [address] [id number] Roger Mcnamara MD [facility]. 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
[2025-05-17 02:43] LABS: NT Pro B Type Natriuretic Pept 2860 pg/mL (19.9-100)
[2025-05-17 02:49] LABS: Influenza A QL RT-PCR Negative (Negative); Influenza B QL RT-PCR Negative (Negative); RSV RNA, RT-PCR Negative (Negative); SARS-CoV-2 RNA PCR Negative (Negative)
[2025-05-17 03:07] LABS: Alanine Aminotransferase 15 U/L (6-35); Albumin Level 3.8 g/dL (3.5-5.1); Alkaline Phosphatase 87 U/L (38-126); Anion Gap 10 mmol/L (4-12); Aspartate Amino Transferase 30 U/L (14-36); Bilirubin,Total 0.7 mg/dL (0.2-1.3); Blood Urea Nitrogen 13 mg/dL (7-17); Calcium 8.5 mg/dL (8.4-10.2); Carbon Dioxide 26 mmol/L (22-30); Chloride 101 mmol/L (98-107); Estimated CRCL calculation 55 ml/min; Estimated Glomerular Filt Rate > 60; Glucose 112 mg/dL (65-110); Magnesium 1.4 mg/dL (1.6-2.3); Potassium 3.3 mmol/L (3.4-5.0); Sodium 137 mmol/L (137-145); Total Protein 7.5 g/dL (6.3-8.2)
[2025-05-17] MEDS: MAGNESIUM SULF 2 GM/WATER 50ML 2 GM/50 ML BAG IVPB (03:23)
--- NOTE | 2025-05-17 03:26 | PC.NURSE ---
Patient was trialed off O2, did ambulation assessment. Patient O2 went from 91% on RA to 84% with exertion. Patient was placed back in bed, and placed back on 2L via NC where O2 increased to 95%. ERP notified.
--- NOTE | 2025-05-17 04:12 | ED_ITS ---
HPI - Allergic Reaction General Chief complaint: Allergic Reaction Stated complaint: ITCHING, SOB, LOW O2 SATS, COUGH History of Present Illness HPI narrative: Patient is a 79-year-old female who presents to the emergency department this evening from her assisted living facility due to concern for low oxygen saturation and shortness of breath. When asked regarding this, patient states that it was not shortness of breath and was coughing fit. Patient was recently discharged from our facility earlier this month after being treated for pneumonia. Has been having a cough and states that she has had this cough for months. Today she developed a rash which was thought to be an allergic reaction to her Bactrim which she has been on in the past. She was administered Benadryl with this evening which resolved the rash and the itching, however, patient had a few episodes where her sats were noted to drop and were ranging between 89-91% on room air. Patient does not have any history of COPD but does have a history of CHF, does not wear any oxygen at home. EMS did place her on 2 L nasal cannula and she was brought to our facility for further evaluation. Patient herself denies any symptoms additional symptoms or concerns at this time. Related Data Home Medications ?Medication ?Instructions ?Recorded ?Confirmed ?Last Taken ?Type metoprolol tartrate 50 mg tablet 50 mg PO Q12H 10/14/19 05/07/25 05/06/25 History rivaroxaban 20 mg tablet (Xarelto) 20 mg PO DAILY 10/14/19 05/07/25 05/06/25 History vitamins A,C,L-zfiy-uoncau 4,296 1 cap PO BID 11/08/20 05/07/25 05/06/25 History mcg-226 mg-90 mg capsule (PreserVision AREDS) acetaminophen 650 mg 1,300 mg PO Q12H pain 05/05/22 05/07/25 04/04/25 History tablet,extended release bumetanide 2 mg tablet 2 mg PO BID 11/17/24 05/07/25 05/06/25 History ferrous sulfate 325 mg (65 mg 325 mg PO EVERY OTHER DAY 05/07/25 05/08/25 05/06/25 History iron) tablet (FeroSul) nitrofurantoin 100 mg PO Q12H 05/07/25 05/07/25 05/06/25 History monohydrate/macrocrystals 100 mg capsule potassium chloride 20 mEq 20 meq PO BID 05/07/25 05/07/25 05/06/25 History tablet,extended release Allergies Allergy/AdvReac Type Severity Reaction Status Date / Time Sulfa (Sulfonamide Allergy Intermediate Rash Verified 05/17/25 01:50 Antibiotics) nitrofurantoin (From Allergy itching Verified 05/17/25 01:50 Macrobid) Review of Systems 2 Review of Systems: All systems are reviewed and are negative unless stated otherwise in the HPI. [facility] Past Medical History Medical History Chronic anemia Pulmonary hypertension Diastolic heart failure Echocardiogram June 2024: Difficult study with LVH, EF of 50 55%, grade 1 diastolic dysfunction and moderate left atrial enlargement with mild pulmonary hypertension Other hyperlipidemia Restless leg syndrome History of sarcoidosis Hx of arteriovenous malformation (AVM) Iron deficiency anemia CARLOS (obstructive sleep apnea) Intolerant to CPAP Post-menopausal Paroxysmal atrial fibrillation Depression Colonoscopy planned Gastro-esophageal reflux Type 2 diabetes mellitus Hypothyroidism Essential hypertension Surgical History Surgical History Status post cataract extraction of both eyes with insertion of intraocular lens History of right shoulder replacement History of toe surgery History of arthroscopy of knee Family History Family History Mother Family history of lung cancer Family history of lung disease Father Family history of arthritis Family history of heart disease in male family member before age 55 Family history of cardiovascular disease Sibling Family history of malignant neoplasm of breast in first degree relative Carcinoma of colon Breast cancer Daughter Breast cancer Social History Social History Social History: Patient moved to [facility] March 2025. She is a lifelong nonsmoker and denies any history of alcohol use. Her and her raised 1 son and 4 daughters. 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 Code status: DNR/DNI (per patient request) Healthcare power of employment attorney: Patricia (daughter) Smoking status: Never smoker Second hand tobacco smoke exposure: No Alcohol intake: never Substance use: never Substance use type: does not use Do You Feel Safe in your Home?: Yes Lack of Transportation: No Lack of Food: Never True Current Housing: I Have Housing Concerned About Future Housing: No Difficulty Paying Gas/Electric Bills: No Difficulty Paying for Meds: No Currently Unemployed: No Education: Bachelor's Degree Difficulty w/ Childcare or Family Care: No Living arrangements: [facility] Occupation/Education: retired 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 HEENT: PERRL, no rhinorrhea, no post nasal drip, oropharynx clear. Neck: Trachea midline, no JVD, no lymphadenopathy. Cardiovascular: Regular rate and rhythm, no murmurs, rubs or gallops, no peripheral edema. Respiratory: Clear to auscultation bilaterally, no tachypnea, no wheezing, no rhonchi, no rubs, no respiratory distress. Abdomen: Soft, nontender, nondistended, no rebound, no guarding, no peritoneal signs. Musculoskeletal: No joint swelling or deformity, normal muscle tone. Skin: No rashes or petechia, no signs of infection. Psychiatric: Alert and oriented, normal behavior and judgment for situation. Neurological: Alert and oriented to person, place, and time. Follows all commands. No focal deficits, speech is clear and fluent. Course Vital Signs Vital signs: Vital Signs Temperature 98.7 F 05/17/25 01:40 Pulse Rate 88 05/17/25 01:40 Respiratory Rate 18 05/17/25 01:40 Blood Pressure 99/64 L 05/17/25 01:40 Pulse Oximetry 90 05/17/25 01:40 Oxygen Delivery Room Air 05/17/25 01:40 Temperature 98.7 F 05/17/25 01:40 Pulse Rate 88 05/17/25 01:40 Respiratory Rate 18 05/17/25 01:40 Blood Pressure 99/64 L 05/17/25 01:40 Pulse Oximetry 98 05/17/25 01:48 Oxygen Delivery Nasal Cannula 05/17/25 01:48 Oxygen Flow Rate 2 05/17/25 01:48 MDM - Allergic Reaction MDM Narrative Medical decision making narrative: The patient was evaluated by myself in the emergency department. History is obtained from patient who is an independent historian and physical exam was performed. External medical records were reviewed at this time. IV was established and pertinent tests were ordered. Laboratory results obtained revealing proBNP of 2860 otherwise unremarkable. This is trending downward from patient's recent value of 2980 on the 07 of May. Patient does not have any clinical evidence of fluid overload. Imaging studies obtained included CXR which was independently interpreted by me revealing cardiomegaly otherwise no acute process, which is pending final radiology interpretation. CT PE protocol was obtained at this time and plan interpreted by me revealing no evidence of pulmonary emboli, cardiomegaly, no thoracic aortic aneurysm or dissection, mild emphysema. Differential diagnosis considerations include CHF, pneumonia, reactive airway disease, pulmonary emboli, acute viral syndrome. Comorbidities impacting this visit include history of CHF. I have evaluated and discussed social determinants of health with the patient that could potentially impact subsequent diagnosis and treatment plans. On repeat assessment of the patient, reevaluation revealed that the patient is doing well and is in no acute distress. Patient symptoms have improved since she arrived to our emergency department. Repeat vital signs were all reviewed and noted to be stable. Differential diagnosis and treatment plan were discussed with the patient at bedside. Patient agrees with discussion and after shared medical decision making agrees with admission. All questions were answered to the patient's satisfaction. Case was discussed with the on-call hospitalist Dr. Carcamo accepted admission to our medical telemetry unit. Lab Data 05/17/25 02:06 05/17/25 02:06 Labs: Lab Results 05/17/25 05/17/25 Range/Units 02:06 02:06 WBC 11.7 H (4.5-10.0) K/mm3 RBC 4.11 L (4.2-5.4) M/mm3 Hgb 9.8 L (12.0-15.0) g/dL Hct 33.8 L (37.0-47.0) % MCV 82.2 (80-100) fl MCH 23.8 L (26-34) pg MCHC 29.0 L (32-36) g/dl RDW 20.8 H (11.5-14.5) % Plt Count 202 (150-375) k/mm3 MPV 9.8 (7.4-10.4) fl Immature Gran % (Auto) 0.4 (0-0.5) % Neut % (Auto) 90.0 H (45.5-73.1) % Lymph % (Auto) 4.2 L (18.3-44.2) % [place] % (Auto) 3.9 (2.6-8.5) % Eos % (Auto) 1.0 (0-4.4) % Baso % (Auto) 0.5 (0.2-1.2) % Lymph # (Auto) 0.49 L (0.9-3.2) K/mm3 [place] # (Auto) 0.5 (0.1-0.6) K/mm3 Eos # (Auto) 0.1 (0-0.3) K/mm3 Baso # (Auto) 0.1 (0.0-0.1) K/mm3 Abs Immat Gran (auto) 0.05 H (0.00-0.031) K/mm3 Absolute Neuts (auto) 10.5 H (1.3-6.7) K/mm3 Absolute Nucleated RBC 0.000 (0.0-0.012) K/mm3 Band Neutrophils % Not Reportable Nucleated RBC % 0.0 (0.0-0.2) % Platelet Estimate Adequate (Adequate) Hypochromasia 1+ Anisocytosis 1+ Ovalocytes 1+ Schistocytes None seen Sodium 137 (137-145) mmol/L Potassium 3.3 L (3.4-5.0) mmol/L Chloride 101 (98-107) mmol/L Carbon Dioxide 26 (22-30) mmol/L Anion Gap 10 (4-12) mmol/L BUN 13 D (7-17) mg/dL Creatinine 0.84 (0.7-1.0) mg/dL Estim Creat Clear Calc 55 ml/min Estimated GFR > 60 (59 - ) Glucose 112 H (65-110) mg/dL Calcium 8.5 (8.4-10.2) mg/dL Magnesium 1.4 L (1.6-2.3) mg/dL Total Bilirubin 0.7 (0.2-1.3) mg/dL AST 30 (14-36) U/L ALT 15 (6-35) U/L Alkaline Phosphatase 87 (38-126) U/L NT-Pro-B Natriuret Pep 2860 H Cancelled (19.9-100) pg/mL Total Protein 7.5 (6.3-8.2) g/dL Albumin 3.8 (3.5-5.1) g/dL Influenza A (RT-PCR) Negative (Negative) Influenza B (RT-PCR) Negative (Negative) RSV (RT-PCR) Negative (Negative) SARS-CoV-2 RNA (RT-PCR) Negative (Negative) Discharge Plan Discharge Clinical Impression: Hypoxia, Shortness of breath, Chronic cough Patient Disposition: Still a Patient Condition: Improved Patient Language: Nepali Prescriptions: No Action PreserVision AREDS [id number] zuob-ix-inme capsule 1 cap PO BID bumetanide 2 mg tablet 2 mg PO BID Xarelto 20 mg tablet 20 mg PO DAILY Rx Instructions: take each evening metoprolol tartrate 50 mg tablet 50 mg PO Q12H Patient Comments: Pt states medication was put on hold by cardiology ferrous sulfate [FeroSul] 325 mg (65 mg iron) tablet 325 mg PO EVERY OTHER DAY nitrofurantoin monohyd/m-cryst 100 mg capsule 100 mg PO Q12H potassium chloride 20 mEq tablet extended release 20 meq PO BID acetaminophen 650 mg tablet extended release 1,300 mg PO Q12H tramadol 50 mg tablet 50 mg PO QHS PRN (Reason: pain) Qty: 30 1RF gabapentin 600 mg tablet 600 mg PO TID Qty: 270 1RF metformin 500 mg tablet 500 mg PO BID Qty: 180 3RF rosuvastatin [Crestor] 10 mg tablet 10 mg PO DAILY Qty: 90 1RF levothyroxine 125 mcg tablet See Rx Instructions .ROUTE .COMPLEX Qty: 90 1RF Dose Instruction: TAKE 1 TABLET BY MOUTH DAILY Rx Instructions: TAKE 1 TABLET BY MOUTH DAILY fluoxetine [Prozac] 20 mg capsule 40 mg PO DAILY Qty: 180 1RF pramipexole 1 mg tablet 1 mg PO TID Qty: 270 1RF omeprazole 20 mg capsule,delayed release(DR/EC) 20 mg PO BID Qty: 180 3RF Follow-up/Referrals: PHYSICIAN NOT ON STAFF,NONSTAFF [Primary Care Provider] - Time of Disposition: 04:20
[2025-05-17] MEDS: POTASSIUM CHLORIDE 20 MEQ ER TABLET PO ×3 (05:35→17:43)
--- NOTE | 2025-05-17 05:45 | PC.NURSE ---
5948 Kendal BURK at [employer] calls to get update. Kendal informed of admission.
--- NOTE | 2025-05-17 06:07 | ADMGEN ---
This patient, Nikole Osorio, was admitted to [facility] Surg Room 324-01. Patient/family oriented to hospital policies and general routines including ID bracelet, bed and alarms, visiting hours, pain management, procedures, bathroom and other care routines, personal items, smoking policy, room service/diet, and visiting hours. Information on how to activate the Rapid Response Team has been discussed. Patient/Family are encouraged to report perceived risks to care and to ask questions if they do not understand what they are told or what they should do.
--- NOTE | 2025-05-17 08:22 | PM.IMHP ---
H&P: HPI History of Present Illness Date/Time: 05/17/25 08:22 Chief Complaint: shortness of breath with cough Narrative: 79-year-old female with past medical history of sarcoidosis, essential hypertension, diastolic CHF, pulmonary hypertension, paroxysmal atrial fibrillation, type 2 diabetes mellitus, hypothyroidism and GERD who presented to the hospital from assisted living for shortness of breath and cough. Previously admitted from 05/07-05/09 for heart failure exacerbation, discharged on bumex 2 g BID. Has been taking her medications as prescribed. Patient states that she was recently diagnosed with a UTI and prescribed bactrim. She states after taking the medication at home she developed a facial rash, chills and itching. She had one episode of vomiting at that time and called the facility to be evaluated. She states they did vitals which were all stable, gave her a benadryl and left. She then developed a cough and became short of breath almost immediately after. She again called the facility who noted that her oxygen saturations were low. She is unsure how low the saturation was. She does note that she has intermittent desaturation with ambulation at baseline to the mid 80s. She states that this has been ongoing for a year and was told it was related to her pulmonary hypertension. She continues to endorse shortness of breath with exertion but none at rest. She also notes a cough that is nonproductive. She states that her rash and itching has subsided. She denies being around sick contacts. She denies any chest pain or palpitations. ER workup: CBC with WBC 11.7, H/H 9.8/33.8, PLT 202. CMP with Na 127, K 3.3, BUN/Cr 13/0.84 with GFR > 60. Magnesium 1.4. LFTs WNL. BNP 2860 (2980 on 05/07). Viral panel negative. Chest XR showed clear lungs and cardiomegaly with pacemaker. Chest CTA showed no PE, aortic dissection, or aortic aneurysm. Stable extensive chronic interstitial disease in the lungs. Stable mediastinal/hilar lymphadenopathy, largest node in the subcarinal region. Dilated main pulmonary artery suggests pulmonary artery hypertension. Review of Systems Review of Systems: All systems reviewed & are unremarkable except as noted in HPI and below PMFSH Past Medical History Medical History Paroxysmal atrial fibrillation Chronic anemia Pulmonary hypertension Diastolic heart failure Echocardiogram June 2024: Difficult study with LVH, EF of 50 55%, grade 1 diastolic dysfunction and moderate left atrial enlargement with mild pulmonary hypertension Other hyperlipidemia Restless leg syndrome History of sarcoidosis Hx of arteriovenous malformation (AVM) Iron deficiency anemia CARLOS (obstructive sleep apnea) Intolerant to CPAP Post-menopausal Depression Colonoscopy planned Gastro-esophageal reflux Type 2 diabetes mellitus Hypothyroidism Essential hypertension Surgical History Surgical History Status post cataract extraction of both eyes with insertion of intraocular lens History of right shoulder replacement History of toe surgery History of arthroscopy of knee Family History Family History Mother Family history of lung cancer Family history of lung disease Father Family history of arthritis Family history of heart disease in male family member before age 55 Family history of cardiovascular disease Sibling Family history of malignant neoplasm of breast in first degree relative Carcinoma of colon Breast cancer Daughter Breast cancer Social History Social History (Updated 05/17/25 @ 15:04 by Chula Bui PA-C) Social History: Patient moved to [facility] March 2025. She is a lifelong nonsmoker and denies any history of alcohol use. Her and her raised 1 son and 4 daughters. 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 Gender identity (if verbalized by the patient): Female Spiritual care concerns: No Meds Home Medications and Allergies Home Medications ?Medication ?Instructions ?Recorded ?Confirmed ?Type metoprolol tartrate 50 mg tablet 50 mg PO Q12H PRN elevated HR 10/14/19 05/17/25 History rivaroxaban 20 mg tablet (Xarelto) 20 mg PO DAILY 10/14/19 05/17/25 History vitamins A,C,T-yrne-pbfmxb 4,296 1 cap PO BID 11/08/20 05/17/25 History mcg-226 mg-90 mg capsule (PreserVision AREDS) acetaminophen 650 mg 1,300 mg PO Q12H pain 05/05/22 05/17/25 History tablet,extended release tramadol 50 mg tablet 50 mg PO QHS PRN pain #30 tabs 11/21/23 05/17/25 Rx gabapentin 600 mg tablet 600 mg PO TID #270 tabs 09/03/24 05/17/25 Rx metformin 500 mg tablet 500 mg PO BID #180 tabs 11/05/24 05/17/25 Rx bumetanide 2 mg tablet 2 mg PO BID 11/17/24 05/17/25 History levothyroxine 125 mcg tablet See Rx Instructions .Route 11/30/24 05/17/25 Rx .COMPLEX #90 tabs rosuvastatin 10 mg tablet (Crestor) 10 mg PO DAILY #90 tabs 11/30/24 05/17/25 Rx fluoxetine 20 mg capsule (Prozac) 40 mg (2 x 20 mg) PO DAILY #180 12/17/24 05/17/25 Rx caps pramipexole 1 mg tablet 1 mg PO TID #270 tabs 02/09/25 05/17/25 Rx omeprazole 20 mg capsule,delayed 20 mg PO BID #180 caps 02/18/25 05/17/25 Rx release ferrous sulfate 325 mg (65 mg 325 mg PO EVERY OTHER DAY 05/07/25 05/17/25 History iron) tablet (FeroSul) nitrofurantoin 100 mg PO Q12H 05/07/25 05/17/25 History monohydrate/macrocrystals 100 mg capsule potassium chloride 20 mEq 20 meq PO BID 05/07/25 05/17/25 History tablet,extended release Allergies Allergy/AdvReac Type Severity Reaction Status Date / Time Sulfa (Sulfonamide Allergy Intermediate Rash Verified 05/17/25 06:35 Antibiotics) nitrofurantoin (From Allergy itching Verified 05/17/25 06:35 Macrobid) Vital Signs Vital Signs - 24 hr 05/17/25 01:40 05/17/25 01:48 05/17/25 01:50 Temperature 98.7 F Pulse Rate 88 Respiratory Rate 18 19 Blood Pressure 99/64 L Pulse Oximetry 90 98 Oxygen Delivery Room Air Nasal Cannula Oxygen Flow Rate 2 05/17/25 01:52 05/17/25 02:00 05/17/25 02:01 Temperature Pulse Rate 93 92 92 Respiratory Rate 24 H 23 H 18 Blood Pressure 96/66 L 118/59 L Pulse Oximetry 96 95 95 Oxygen Delivery Oxygen Flow Rate 05/17/25 02:15 05/17/25 02:30 05/17/25 02:45 Temperature Pulse Rate 90 90 86 Respiratory Rate 17 13 21 H Blood Pressure Pulse Oximetry 95 93 97 Oxygen Delivery Oxygen Flow Rate 05/17/25 02:59 05/17/25 03:00 05/17/25 03:30 Temperature Pulse Rate 91 90 84 Respiratory Rate 14 17 24 H Blood Pressure 101/52 L Pulse Oximetry 94 93 95 Oxygen Delivery Oxygen Flow Rate 05/17/25 03:31 05/17/25 03:45 05/17/25 04:05 Temperature Pulse Rate 79 83 82 Respiratory Rate 24 H 20 20 Blood Pressure 97/56 L Pulse Oximetry 99 94 96 Oxygen Delivery Oxygen Flow Rate 05/17/25 04:15 05/17/25 04:30 05/17/25 04:45 Temperature Pulse Rate 81 81 73 Respiratory Rate 25 H 20 15 Blood Pressure Pulse Oximetry 94 94 98 Oxygen Delivery Oxygen Flow Rate 05/17/25 05:00 05/17/25 05:15 05/17/25 05:17 Temperature Pulse Rate 88 81 81 Respiratory Rate 21 H 16 15 Blood Pressure 97/59 L Pulse Oximetry 94 95 95 Oxygen Delivery Oxygen Flow Rate 05/17/25 05:47 05/17/25 06:20 05/17/25 07:22 Temperature 97.1 F L Pulse Rate 110 H 103 H Respiratory Rate 20 16 Blood Pressure 108/63 97/70 L Pulse Oximetry 100 100 100 Oxygen Delivery Nasal Cannula Oxygen Flow Rate 2 05/17/25 08:03 Temperature Pulse Rate Respiratory Rate Blood Pressure Pulse Oximetry 95 Oxygen Delivery Nasal Cannula Oxygen Flow Rate 2 Exam Narrative: AF HR 99 RR 16 SpO2 95 2L NC (baseline RA) BP 97/70 General: female in no acute respiratory distress who is nontoxic appearing, lying semi recumbent in bed. HEENT: Normocephalic. Atraumatic. Extraocular movement intact. Sclera clear and anicteric. No facial asymmetry. Neck: Neck was supple. No dominant adenopathy, thyromegaly or masses. Chest: Lungs are clear to auscultation bilaterally. No wheezes or crackles. CV: Heart was regular rate and rhythm. S1-S2. No murmurs, gallops, or rubs. Abd: Abdomen was soft. Nontender. Nondistended. Positive bowel sounds. No organomegaly or masses. Ext: No clubbing, cyanosis, or edema. DP pulses bilaterally. Neuro: Patient is alert and oriented x4. Strength is 5/5 in both upper and lower extremities. Cranial nerves 2-12 are intact. Speech is clear. Psych: Normal mood and affect. Patient is pleasant and cooperative. Skin: Warm and dry. No rashes noted. H&P: Results Labs Labs: Short CBC 05/17/25 Range/Units 02:06 WBC 11.7 H (4.5-10.0) K/mm3 Hgb 9.8 L (12.0-15.0) g/dL Hct 33.8 L (37.0-47.0) % Plt Count 202 (150-375) k/mm3 BMP 05/17/25 02:06 Sodium 137 Potassium 3.3 L Chloride 101 Carbon Dioxide 26 BUN 13 D Creatinine 0.84 Glucose 112 H Calcium 8.5 Liver Function 05/17/25 Range/Units 02:06 Total Bilirubin 0.7 (0.2-1.3) mg/dL AST 30 (14-36) U/L ALT 15 (6-35) U/L Alkaline Phosphatase 87 (38-126) U/L Albumin 3.8 (3.5-5.1) g/dL Assessment and Plan Assessment and plan (1) Hypoxia: Code(s): R09.02 - Hypoxemia Status: Acute Assessment and Plan: Per chart review sats were noted to drop and were ranging between 89-91% on room air, however no vital sign documentation of desaturation Patient states she drops into the 80s consistently with ambulation, will require a home O2 eval prior to discharge - Symptoms: shortness of breath and cough - Oxygen supplementation: 2L NC (baseline RA). Wean as tolerated to maintain spO2 > 90%. - Viral panel ordered - EKG: atrial fibrillation - Chest XR: clear lungs with cardiomegaly and pacemaker - Chest CTA: no PE, aortic dissection, or aortic aneurysm. Stable extensive chronic interstitial disease in the lungs. Stable mediastinal/hilar lymphadenopathy, largest node in the subcarinal region. Dilated main pulmonary artery suggests pulmonary artery hypertension. (2) Essential hypertension: Code(s): I10 - Essential (primary) hypertension Status: Acute Assessment and Plan: Chronic, continue home medications - metoprolol 50 mg BID - blood pressures are hypotensive, patient remains asymptomatic hold bumex 2 mg BID given 1L NS at 75 ml/hr, monitor volume status as patient has HF history (3) Type 2 diabetes mellitus: Qualifiers: Diabetes mellitus complication status: without complication Diabetes mellitus long-term insulin use: without long-term use Qualified Code(s): E11.9 - Type 2 diabetes mellitus without complications Code(s): E11.9 - Type 2 diabetes mellitus without complications Status: Acute Assessment and Plan: - hypoglycemia protocol - POC blood glucose ACHS - home medication - metformin 500 mg BID - correct regimen ordered - low dose TIDWM and HS - A1C 5.9 (4) Diastolic heart failure: Code(s): I50.30 - Unspecified diastolic (congestive) heart failure Status: Acute Assessment and Plan: BNP 2980 on 05/07, repeat Chest XR and CTA without signs of hypervolemia Appears euvolemic on exam Echo 04/05/25: LVEF 60-65% with grade I diastolic dysfunction, severe tricuspid regurgitation, and severe pulmonary hypertension Continue bumex 2 mg BID Previously seen by cardiology 05/08/25 who states that patient will need further evaluation of tricuspid regurgitation and pulmonary hypertension Hypotensive, given 1L NS at 75ml/hr. Will closely monitor for hypervolemia. (5) Paroxysmal atrial fibrillation: Code(s): I48.0 - Paroxysmal atrial fibrillation Status: Acute Assessment and Plan: Chronic, currently in afib - metoprolol 50 mg BID - Xarelto 20 mg daily - Continue to monitor Quality VTE Prophylaxis VTE prophylaxis: pharmacologic ordered Hospitalist MIPS Advance Care Plan I have confirmed that the patient's Advanced Care Plan is present, code status is documented, or surrogate decision maker is listed in patient medical record.: Yes Medication Reconciliation I have utilized all available resources to obtain, update and review the patients current medications (includes all prescriptions, OTC, herbals, cannabis, and nutritional supplements).: Yes
--- NOTE | 2025-05-17 08:56 | ECG_ITS ---
Test Date: 2025-05-17 09:29:09 Measurements Intervals [place] Rate: 116 P: 0 OR: 0 QRS: 7 QRSD: 89 T: -54 QT: 343 QTc: 477 Interpretive Statements ATRIAL FIBRILLATION WITH RAPID VENTRICULAR RESPONSE INCOMPLETE RIGHT BUNDLE BRANCH BLOCK ABNORMAL ECG Compared to ECG 05/07/2025 09:31:22 ATRIAL FIB REPLACES SINUS RHYTHM Electronically Signed On 05-18-2025 09:52:12 CDT by Tyler Mancilla M.D.
[2025-05-17] MEDS: LEVOTHYROXINE SODIUM 125 MCG TABLET PO (09:03)
[2025-05-17] MEDS: GABAPENTIN 300 MG CAPSULE 600 MG PO ×3 (09:03→17:43)
[2025-05-17] MEDS: RIVAROXABAN 20 MG TABLET PO (09:03)
[2025-05-17] MEDS: ROSUVASTATIN 10 MG TABLET PO (09:04)
[2025-05-17] MEDS: METOPROLOL TARTRATE 50 MG TAB PO (09:05)
[2025-05-17 09:09] LABS: Hemoglobin A1C 5.9 % (<5.7)
[2025-05-17] MEDS: FERROUS SULFATE 325 MG TABLET DR BY MOUTH (09:10)
[2025-05-17] MEDS: PRAMIPEXOLE 1 MG TABLET PO ×3 (09:36→17:43)
[2025-05-17] MEDS: SODIUM CHLORIDE 0.9% IV 1,000 ML 75 ML IV CONT (15:24)
[2025-05-17] MEDS: ACETAMINOPHEN 325 MG TABLET 650 MG PO (16:09)
[2025-05-17] MEDS: PANTOPRAZOLE 40 MG TABLET PO (17:43)
[2025-05-17 19:25] LABS: Influenza A QL RT-PCR Negative (Negative); Influenza B QL RT-PCR Negative (Negative); RSV RNA, RT-PCR Negative (Negative); SARS-CoV-2 RNA PCR Negative (Negative)
[2025-05-18] VITALS (12 sets, daily range): BP systolic 90–106; BP diastolic 55–80; PULSE 79–117; RESP 14–20; TEMP 35.8–36.2; O2SAT 91–99
--- NOTE | 2025-05-18 | ECHO_ITS ---
Patient Info Name: Nikole Osorio Age: 79 years : 1945 Gender: Female Ht: 63 in Wt: 227 lbs BSA: 2.19 m2 HR: 90 bpm BP: 90 / 70 mmHg Heart Rhythm: Atrial Fibrillation Technical Quality: Fair Exam Date: 05/18/2025 1:23 PM Patient Status: I Admit Date: 05/17/2025 Exam Type: CA echo dop color flow w con Complete two-dimensional, color flow and Doppler transthoracic echocardiogram is performed with contrast to opacify the left ventricle and to improve the deliniation of the left ventricle endocardial borders. Staff Referring Physician: Michelle Lucas Printer Repair Technician: Ijeoma Smyth Attending Provider: Lupe Carcamo Contrast/Agitated Saline Contrast/Ag. Saline: Definity Amount: 2.00 ml Administered By: Ijeoma Smyth Existing IV Access: Yes IV Access Condition: patent with no signs of infiltration Summary 1. The left ventricle is normal in size and systolic function. The left ventricular ejection fraction is visually estimated to be 60-65%. 2. The right ventricle is dilated with reduced systolic function. 3. There is ventricular septal flattening suggestive of volume and pressure overload. 4. There is severe biatrial enlargement. 5. Dilated inferior vena cava with <50% collapse upon inspiration consistent with significantly elevated right atrial pressure, 15 mmHg. 6. There is severe pulmonary hypertension with estimated PASP of 90 mmHg. Left Ventricle The left ventricle is normal in size and systolic function. The left ventricular ejection fraction is visually estimated to be 60-65%. Right Ventricle There is a pacemaker lead in the right ventricle. The right ventricle is dilated with reduced systolic function. Ventricular Septum There is ventricular septal flattening suggestive of volume and pressure overload. Left Atria The left atrium is severely dilated. Right Atria The right atrium is severely dilated. Atrial Septum The atrial septum is thin. Aortic Valve The aortic valve is trileaflet and opens well. There is no aortic regurgitation. Pulmonic Valve The pulmonic valve is not well visualized. Mitral Valve The mitral valve is grossly normal. There is trace mitral regurgitation. Tricuspid Valve The tricuspid valve is sclerotic. There is moderate tricuspid regurgitation. Pulmonary Arteries There is severe pulmonary hypertension with estimated PASP of 90 mmHg. Pericardium/Pleural Pericardium is normal in appearance with no evidence for significant pericardial effusion. Inferior Vena Cava Dilated inferior vena cava with <50% collapse upon inspiration consistent with significantly elevated right atrial pressure, 15 mmHg. Aorta The aortic root at the level of the sinus of Valsalva measures 3.3 cm in diameter. Left Ventricular Outflow Tract Name Value Normal LVOT 2D LVOT Diameter 2.0 cm LVOT Doppler LVOT Peak Velocity 96 cm/s LVOT Peak Gradient 4 mmHg LVOT Mean Gradient 2 mmHg LVOT VTI 12 cm LVOT VTI/AV VTI Ratio 0.6 LVOT Stroke Volume 40 ml LVOT CO 4.3 l/min LVOT CI 1.9 l/min/m2 Pulmonic Valve Name Value Normal RVOT Doppler RVOT Peak Velocity 50 cm/s RVOT Peak Gradient 1 mmHg PV Doppler PV Peak Velocity 65 cm/s PV Peak Gradient 1 mmHg Mitral Valve Name Value Normal MV Regurgitation Doppler MR Peak Gradient 82 mmHg MV Diastolic Function MV E Peak Velocity 74 cm/s MV A Peak Velocity 1 cm/s MV E/A 134.7 MV Decel Time (PW) 130 ms MV Annular TDI MV E/e' (Septal) 6.6 MV E/e' (Lateral) 4.5 MV E/e' (Average) 5.6 Tricuspid Valve Name Value Normal TV Regurgitation Doppler TR Peak Velocity 434 cm/s TR Peak Gradient 75 mmHg Estimated PAP/RSVP RA Pressure 15 mmHg <=5 PA Systolic Pressure 90 mmHg <36 RV Systolic Pressure 90 mmHg <36 TV Annular TDI TV Lateral Maile s' Velocity 11.1 cm/s >=9.5 Aortic Valve Name Value Normal AV Doppler AV Peak Velocity 133 cm/s AV Peak Gradient 4 mmHg AV Mean Gradient 2 mmHg AV VTI 20 cm AV Area (Cont Eq VTI) 2.0 cm2 >=3.0 AV Area (Cont Eq Anderson) 2.4 cm2 AV DI (Anderson) 0.73 AV Regurgitation 2D LVOT Area 3.3 cm2 Ventricles Name Value Normal LV Dimensions 2D/MM IVS Diastolic Thickness (2D) 1.0 cm 0.6-1.0 LVID Diastole (2D) 5.6 cm 3.8-5.2 LVIW Diastolic Thickness (2D) 0.9 cm 0.6-0.9 LVID Systole (2D) 3.1 cm 2.2-3.5 LVOT Diameter 2.0 cm LV Mass (2D Cubed) 197.35 g 67.00-162.00 LV Mass Index (2D Cubed) 90 g/m2 43-95 Relative Wall Thickness (2D) 0.32 <=0.42 LV Fractional Shortening/Ejection Fraction 2D/MM LV Fractional Shortening (2D) 44 % 27-45 LV EF (2D Teichmarianz) 74 % LV Diastolic Volume (4C MOD) 76 ml LV EF (4C MOD) 78 % LV Diastolic Volume (2C MOD) 59 ml LV EF (2C MOD) 69 % LV Diastolic Volume (BP MOD) 69 ml 46-106 LV Diastolic Volume Index (BP MOD) 31 ml/m2 29-61 LV Systolic Volume (BP MOD) 18 ml 14-42 LV Systolic Volume Index (BP MOD) 8 ml/m2 8-24 LV EF (BP MOD) 74 % 54-74 LV Diastolic Length (4C) 7.4 cm LV Systolic Length (4C) 5.4 cm LV Stroke Volume (4C MOD) 59 ml Atria Name Value Normal LA Dimensions LA Volume (4C A-L) 106 ml LA Volume (BP A-L) 102 ml RA Dimensions RA Area (4C) 27.7 cm2 <=18.0 Report Signatures
[2025-05-18] MEDS: LEVOTHYROXINE SODIUM 125 MCG TABLET PO (05:52)
[2025-05-18 06:06] LABS: Hematocrit 33.0 % (37.0-47.0); Hemoglobin 9.2 g/dL (12.0-15.0); Mean Corpuscular HGB Conc 27.9 g/dl (32-36); Mean Corpuscular Hemoglobin 23.7 pg (26-34); Mean Corpuscular Volume 84.8 fl (80-100); Platelet Count Result 177 k/mm3 (150-375); Red Blood Count 3.89 M/mm3 (4.2-5.4); White Blood Count 6.6 K/mm3 (4.5-10.0)
[2025-05-18 06:25] LABS: Alanine Aminotransferase 10 U/L (6-35); Albumin Level 3.2 g/dL (3.5-5.1); Alkaline Phosphatase 67 U/L (38-126); Anion Gap 7 mmol/L (4-12); Aspartate Amino Transferase 25 U/L (14-36); Bilirubin,Total 0.5 mg/dL (0.2-1.3); Blood Urea Nitrogen 13 mg/dL (7-17); Calcium 8.6 mg/dL (8.4-10.2); Carbon Dioxide 25 mmol/L (22-30); Chloride 105 mmol/L (98-107); Estimated CRCL calculation 60 ml/min; Estimated Glomerular Filt Rate > 60; Glucose 101 mg/dL (65-110); Potassium 3.8 mmol/L (3.4-5.0); Sodium 137 mmol/L (137-145); Total Protein 6.4 g/dL (6.3-8.2)
[2025-05-18 06:28] LABS: NT Pro B Type Natriuretic Pept 5120 pg/mL (19.9-100)
--- NOTE | 2025-05-18 07:52 | P.PNIM_ITS ---
Progress Note: A&P Assessment and Plan (1) Hypoxia: Code(s): R09.02 - Hypoxemia Status: Acute Assessment and Plan: Per chart review sats were noted to drop and were ranging between 89-91% on room air, however no vital sign documentation of desaturation Patient states she drops into the 80s consistently with ambulation, will require a home O2 eval prior to discharge - Symptoms: shortness of breath and cough - Oxygen supplementation: Weaned back to room air with stable saturations. Maintain spO2 > 90%. - Viral panel negative - EKG: atrial fibrillation - Chest XR: clear lungs with cardiomegaly and pacemaker - Chest CTA: no PE, aortic dissection, or aortic aneurysm. Stable extensive chronic interstitial disease in the lungs. Stable mediastinal/hilar lymphadenopathy, largest node in the subcarinal region. Dilated main pulmonary artery suggests pulmonary artery hypertension. -patient will need a home O2 evaluation prior to discharge -given history of snoring and increased fatigue throughout the day will obtain an ApneaLink to assess for nocturnal oxygen requirement verses CARLOS (2) Essential hypertension: Code(s): I10 - Essential (primary) hypertension Status: Acute Assessment and Plan: Chronic, continue home medications - metoprolol 50 mg BID - blood pressures are hypotensive, patient remains asymptomatic hold bumex 2 mg BID given 1L NS at 75 ml/hr on 05/17, monitor volume status as patient has HF history (3) Type 2 diabetes mellitus: Qualifiers: Diabetes mellitus complication status: without complication 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 (4) Diastolic heart failure: Code(s): I50.30 - Unspecified diastolic (congestive) heart failure Status: Acute Assessment and Plan: BNP 2980 on 05/07, repeat 5120 Chest XR and CTA without signs of hypervolemia Appears euvolemic on exam Echo 04/05/25: LVEF 60-65% with grade I diastolic dysfunction, severe tricuspid regurgitation, and severe pulmonary hypertension Previously seen by cardiology 05/08/25 who states that patient will need further evaluation of tricuspid regurgitation and pulmonary hypertension Hypotensive, given 1L NS at 75ml/hr on 05/17. Will closely monitor for hypervolemia. bumex 2 mg BID placed on hold Repeat echo given ongoing hypoxia and worsening BNP from baseline (5) Paroxysmal atrial fibrillation: Code(s): I48.0 - Paroxysmal atrial fibrillation Status: Acute Assessment and Plan: Chronic, currently in afib - metoprolol 50 mg BID - Xarelto 20 mg daily - Continue to monitor Time Spent With Patient Time with patient: 25 - 35 minutes Subjective Date/time seen: 05/18/25 07:52 Interval history: 79-year-old female with past medical history of sarcoidosis, essential hypertension, diastolic CHF, pulmonary hypertension, paroxysmal atrial fibrillation, type 2 diabetes mellitus, hypothyroidism and GERD who presented to the hospital from assisted living for shortness of breath and cough. Patient is pleasant sitting up comfortably in her bed. She continues to endorse a dry cough but denies any associated shortness of breath. She also states that she feels increasingly fatigued today and notes that this is common. She states that she will intermittently follow sleep throughout the day due to feeling fatigued. She notes a history of snoring but is unsure if she ever wakes up gasping overnight. She states she has had sleep studies a few years ago but is unsure of the results. She has no other complaints denying chest pain, shortness a breath, palpitations, nausea/vomiting, abdominal pain. Review of Systems Review of Systems: All systems reviewed & are unremarkable except as noted in HPI and below Exam Narrative: AF HR 98 RR 18 SpO2 98 BP 106/80 General: female in no acute respiratory distress who is nontoxic appearing, sitting up in bed HEENT: Normocephalic. Atraumatic. Extraocular movement intact. Sclera clear and anicteric. No facial asymmetry. Chest: Lungs are slightly diminished to the lower bases to auscultation b ilaterally. No wheezes or crackles. CV: Heart was regular rate and rhythm. S1-S2. No murmurs, gallops, or rubs. Abd: Abdomen was soft. Nontender. Nondistended. Positive bowel sounds. No organomegaly or masses. Ext: No clubbing, cyanosis, or edema. DP pulses bilaterally. Neuro: Patient is alert and oriented x4. Speech is clear. Objective Data Vital Signs Vital Signs: Vital Signs - 24 hr 05/17/25 08:00 05/17/25 08:03 05/17/25 09:05 Temperature Pulse Rate 122 H 135 H Respiratory Rate Blood Pressure Pulse Oximetry 95 Oxygen Delivery Nasal Cannula Oxygen Flow Rate 2 05/17/25 09:10 05/17/25 12:00 05/17/25 16:00 Temperature Pulse Rate 99 102 H Respiratory Rate Blood Pressure Pulse Oximetry 95 Oxygen Delivery Nasal Cannula Oxygen Flow Rate 2 05/17/25 18:28 05/17/25 20:00 05/17/25 20:00 Temperature Pulse Rate 78 Respiratory Rate Blood Pressure 96/62 L Pulse Oximetry 95 Oxygen Delivery Nasal Cannula Oxygen Flow Rate 2 05/17/25 21:52 05/18/25 06:00 Temperature 95.8 F L 96.5 F L Pulse Rate 93 79 Respiratory Rate 16 20 Blood Pressure 90/70 L 90/70 L Pulse Oximetry 98 95 Oxygen Delivery Oxygen Flow Rate Intake/Output Intake/Output: Intake & Output 05/15/25 05/16/25 05/17/25 05/18/25 23:59 23:59 23:59 23:59 Intake Total 770 Balance 770 Meds/Results Medications: Active Medications Generic Name Dose Route Start Last Admin Trade Name Freq PRN Reason Stop Dose Admin Acetaminophen 650 mg 05/17/25 08:33 05/17/25 16:09 Acetaminophen 325 Mg Tablet PO 650 mg Q4H PRN Administration Mild Pain (1-3) or Fever Bumetanide 2 mg 05/17/25 09:00 05/17/25 09:05 Bumetanide 1 Mg Tablet PO Not Given BID KERLINE Dextrose 12.5 gm 05/17/25 08:47 Dextrose 50% 25 Gm/50 Ml Syringe IV PUSH PRN PRN Hypoglycemia Protocol Ferrous Sulfate 325 mg 05/17/25 09:00 05/17/25 09:10 Ferrous Sulfate [address] BY MOUTH 325 mg Q48H KERLINE Administration Fluoxetine HCl 40 mg 05/17/25 09:00 05/17/25 09:03 Fluoxetine Hcl 20 Mg Capsule PO 40 mg DAILY KERLINE Administration Gabapentin 600 mg 05/17/25 09:00 05/17/25 17:43 Gabapentin 300 Mg Capsule PO 600 mg TID KERLINE Administration Glucagon 1 mg 05/17/25 08:47 Glucagon For Inj 1 Mg Vial IM PRN PRN Hypoglycemia Protocol Glucose 15 gm 05/17/25 08:47 Glucose Oral Gel 15 Gm Of Glucse In 37.5 Gm Tube PO PRN PRN Hypoglycemia Protocol Dextrose 1,000 mls @ 100 mls/hr 05/17/25 08:47 Dextrose 5% 1,000 Ml IVPB PRN PRN Hypoglycemia Protocol Insulin Aspart 2 - 5 units 05/17/25 12:00 05/17/25 17:43 Insulin Aspart (*Bkc) 100 Units/Ml SUB-Q Not Given TIDWM KERLINE Protocol Levothyroxine Sodium 0 mcg 05/17/25 08:35 05/18/25 05:52 Levothyroxine Sodium 125 Mcg Tablet PO 125 mcg DAILY@0630 KERLINE Administration Metoprolol Tartrate 50 mg 05/17/25 08:31 05/17/25 09:05 Metoprolol Tartrate 50 Mg Tab PO 50 mg Q12H PRN Administration elevated HR Pantoprazole Sodium 40 mg 05/17/25 17:00 05/17/25 17:43 Pantoprazole 40 Mg Tablet PO 40 mg BID KERLINE Administration Potassium Chloride 20 meq 05/17/25 09:00 05/17/25 17:43 Potassium Chloride 20 Meq Er Tablet PO 20 meq BID KERLINE Administration Pramipexole Dihydrochloride 1 mg 05/17/25 09:00 05/17/25 17:43 Pramipexole 1 Mg Tablet PO 1 mg TID KERLINE Administration Rivaroxaban 20 mg 05/17/25 09:00 05/17/25 09:03 Rivaroxaban 20 Mg Tablet PO 20 mg DAILY KERLINE Administration Rosuvastatin Calcium 10 mg 05/17/25 09:00 05/17/25 09:04 Rosuvastatin 10 Mg Tablet PO 10 mg DAILY KERLINE Administration Radiology Results: ITS Impressions Chest X-Ray 05/17/25 05:54 Impression: Clear lungs. Cardiomegaly with pacemaker device. Chest CTA 05/17/25 05:57 Impression: No evidence of pulmonary embolus, aortic dissection, or aortic aneurysm. Stable extensive chronic interstitial disease in the lungs. Stable mediastinal/hilar lymphadenopathy, largest node in the subcarinal region. Dilated main pulmonary artery suggests pulmonary artery hypertension. Labs Labs: Laboratory Results - last 24 hr 05/17/25 05/17/25 05/17/25 02:06 08:28 11:46 WBC RBC Hgb Hct MCV MCH MCHC RDW Plt Count MPV Sodium Potassium Chloride Carbon Dioxide Anion Gap BUN Creatinine Estim Creat Clear Calc Estimated GFR Glucose POC Capillary Glucose 106 H 89 Hemoglobin A1c 5.9 H Calcium Total Bilirubin AST ALT Alkaline Phosphatase NT-Pro-B Natriuret Pep Total Protein Albumin Influenza A (RT-PCR) Influenza B (RT-PCR) RSV (RT-PCR) SARS-CoV-2 RNA (RT-PCR) 05/17/25 05/17/25 05/17/25 16:39 18:41 21:18 WBC RBC Hgb Hct MCV MCH MCHC RDW Plt Count MPV Sodium Potassium Chloride Carbon Dioxide Anion Gap BUN Creatinine Estim Creat Clear Calc Estimated GFR Glucose POC Capillary Glucose 88 105 Hemoglobin A1c Calcium Total Bilirubin AST ALT Alkaline Phosphatase NT-Pro-B Natriuret Pep Total Protein Albumin Influenza A (RT-PCR) Negative Influenza B (RT-PCR) Negative RSV (RT-PCR) Negative SARS-CoV-2 RNA (RT-PCR) Negative 05/18/25 05/18/25 05:48 05:54 WBC 6.6 RBC 3.89 L Hgb 9.2 L Hct 33.0 L MCV 84.8 MCH 23.7 L MCHC 27.9 L RDW 21.1 H Plt Count 177 MPV 10.3 Sodium 137 Potassium 3.8 Chloride 105 Carbon Dioxide 25 Anion Gap 7 BUN 13 Creatinine 0.76 Estim Creat Clear Calc 60 Estimated GFR > 60 Glucose 101 POC Capillary Glucose 112 H Hemoglobin A1c Calcium 8.6 Total Bilirubin 0.5 AST 25 ALT 10 Alkaline Phosphatase 67 NT-Pro-B Natriuret Pep 5120 H Total Protein 6.4 Albumin 3.2 L Influenza A (RT-PCR) Influenza B (RT-PCR) RSV (RT-PCR) SARS-CoV-2 RNA (RT-PCR) Quality VTE Prophylaxis VTE prophylaxis: pharmacologic ordered
[2025-05-18] MEDS: PRAMIPEXOLE 1 MG TABLET PO ×3 (09:31→17:09)
[2025-05-18] MEDS: POTASSIUM CHLORIDE 20 MEQ ER TABLET PO ×2 (09:32→17:09)
[2025-05-18] MEDS: ROSUVASTATIN 10 MG TABLET PO (09:32)
[2025-05-18] MEDS: RIVAROXABAN 20 MG TABLET PO (09:32)
[2025-05-18] MEDS: GABAPENTIN 300 MG CAPSULE 600 MG PO ×3 (09:32→17:09)
[2025-05-18] MEDS: PANTOPRAZOLE 40 MG TABLET PO ×2 (09:32→17:09)
--- NOTE | 2025-05-18 10:25 | WPDCDIQUERY2 ---
CDI Query Clarification Request Hypoxia has been documented Please review the clinical information below and clarify the respiratory diagnosis the patient is being treated for: Hypoxia or hypoxemia without respiratory failure Respiratory distress without respiratory failure Acute respiratory failure with hypoxia Acute respiratory failure with hypercapnia Acute respiratory failure with hypoxia and hypercapnia Acute on chronic respiratory failure with hypoxia Acute on chronic respiratory failure with hypercapnia Acute on chronic respiratory failure with hypoxia and hypercapnia Acute respiratory distress syndrome (ARDS) Chronic respiratory failure with hypoxia Chronic respiratory failure with hypercapnia Chronic respiratory failure with hypoxia and hypercapnia Other explanation clinical findings, please specify Unable to determine The medical chart reflects the following: Patient is a 79-year-old female who presents to the emergency department this evening from her assisted living facility due to concern for low oxygen saturation and shortness of breath. When asked regarding this, patient states that it was not shortness of breath and was coughing fit. Patient was recently discharged from our facility earlier this month after being treated for pneumonia. Has been having a cough and states that she has had this cough for months. Today she developed a rash which was thought to be an allergic reaction to her Bactrim which she has been on in the past. She was administered Benadryl with this evening which resolved the rash and the itching, however, patient had a few episodes where her sats were noted to drop and were ranging between 89-91% on room air. Patient does not have any history of COPD but does have a history of CHF, does not wear any oxygen at home. EMS did place her on 2 L nasal cannula and she was brought to our facility for further evaluation. Patient herself denies any symptoms additional symptoms or concerns at this time. 1) Hypoxia: Code(s): R09.02 - Hypoxemia Status: Acute Assessment and Plan: Per chart review sats were noted to drop and were ranging between 89-91% on room air, however no vital sign documentation of desaturation Patient states she drops into the 80s consistently with ambulation, will require a home O2 eval prior to discharge - Symptoms: shortness of breath and cough - Oxygen supplementation: 2L NC (baseline RA). Wean as tolerated to maintain spO2 > 90%. - Viral panel negative - EKG: atrial fibrillation - Chest XR: clear lungs with cardiomegaly and pacemaker - Chest CTA: no PE, aortic dissection, or aortic aneurysm. Stable extensive chronic interstitial disease in the lungs. Stable mediastinal/hilar lymphadenopathy, largest node in the subcarinal region. Dilated main pulmonary artery suggests pulmonary artery hypertension. <Estelita Amanda RN - Last Filed: 05/18/25 10:27> Clarified Diagnosis Clarified Diagnosis: Hypoxia or hypoxemia without respiratory failure <Chula Bui PA-C - Last Filed: 05/18/25 14:56>
[2025-05-18] MEDS: PERFLUTREN LIPID MICROSPHERES 1.5 ML VIAL DILUTED TO 10 ML TOTAL VOLUME IV PUSH (14:00)
--- NOTE | 2025-05-18 14:34 | IVDEFINITY ---
Prior to administration of IV Definity the patient was educated on the risks and benefits of the imaging enhancing agent including potential adverse side effects. The patient verbalized understanding. Allergies were verified. No exclusion criteria were identified and at least one of the following inclusion criteria were met: 1) physician request, 2) patient technically difficult to image (per the [place] [employer] guidelines of two or more segments not discernable within the apical view), or 3) questionable left ventricular function. ?
[2025-05-19] VITALS (13 sets, daily range): BP systolic 90–107; BP diastolic 69–76; PULSE 84–123; RESP 18; TEMP 36.1–36.4; O2SAT 95–100
[2025-05-19] MEDS: LEVOTHYROXINE SODIUM 125 MCG TABLET PO (05:38)
[2025-05-19 05:55] LABS: Hematocrit 33.0 % (37.0-47.0); Hemoglobin 9.4 g/dL (12.0-15.0); Mean Corpuscular HGB Conc 28.5 g/dl (32-36); Mean Corpuscular Hemoglobin 24.3 pg (26-34); Mean Corpuscular Volume 85.3 fl (80-100); Platelet Count Result 179 k/mm3 (150-375); Red Blood Count 3.87 M/mm3 (4.2-5.4); White Blood Count 7.3 K/mm3 (4.5-10.0)
[2025-05-19 06:21] LABS: Alanine Aminotransferase 13 U/L (6-35); Albumin Level 3.5 g/dL (3.5-5.1); Alkaline Phosphatase 69 U/L (38-126); Anion Gap 6 mmol/L (4-12); Aspartate Amino Transferase 29 U/L (14-36); Bilirubin,Total 0.5 mg/dL (0.2-1.3); Blood Urea Nitrogen 12 mg/dL (7-17); Calcium 9.2 mg/dL (8.4-10.2); Carbon Dioxide 26 mmol/L (22-30); Chloride 105 mmol/L (98-107); Estimated CRCL calculation 59 ml/min; Estimated Glomerular Filt Rate > 60; Glucose 104 mg/dL (65-110); Potassium 4.6 mmol/L (3.4-5.0); Sodium 137 mmol/L (137-145); Total Protein 6.8 g/dL (6.3-8.2)
[2025-05-19] MEDS: FERROUS SULFATE 325 MG TABLET DR BY MOUTH (08:46)
[2025-05-19] MEDS: POTASSIUM CHLORIDE 20 MEQ ER TABLET PO ×2 (08:46→17:48)
[2025-05-19] MEDS: GABAPENTIN 300 MG CAPSULE 600 MG PO ×3 (08:46→17:48)
[2025-05-19] MEDS: RIVAROXABAN 20 MG TABLET PO (08:47)
[2025-05-19] MEDS: ROSUVASTATIN 10 MG TABLET PO (08:47)
[2025-05-19] MEDS: PRAMIPEXOLE 1 MG TABLET PO ×3 (08:47→17:49)
[2025-05-19] MEDS: PANTOPRAZOLE 40 MG TABLET PO ×2 (08:47→17:48)
[2025-05-19] MEDS: ACETAMINOPHEN 325 MG TABLET 650 MG PO (14:25)
--- NOTE | 2025-05-19 15:35 | P.PNIM_ITS ---
Progress Note: A&P Assessment and Plan (1) Hypoxia: Code(s): R09.02 - Hypoxemia Status: Acute Assessment and Plan: Per chart review sats were noted to drop and were ranging between 89-91% on room air, however no vital sign documentation of desaturation Patient states she drops into the 80s consistently with ambulation, will require a home O2 eval prior to discharge - Symptoms: shortness of breath and cough - Oxygen supplementation: Weaned back to room air with stable saturations. Maintain spO2 > 90%. - Viral panel negative - EKG: atrial fibrillation - Chest XR: clear lungs with cardiomegaly and pacemaker - Chest CTA: no PE, aortic dissection, or aortic aneurysm. Stable extensive chronic interstitial disease in the lungs. Stable mediastinal/hilar lymphadenopathy, largest node in the subcarinal region. Dilated main pulmonary artery suggests pulmonary artery hypertension. -patient will need a home O2 evaluation prior to discharge -given history of snoring and increased fatigue throughout the day will obtain an ApneaLink to assess for nocturnal oxygen requirement verses CARLOS - home o2 eval prior to discharge (2) Essential hypertension: Code(s): I10 - Essential (primary) hypertension Status: Acute Assessment and Plan: Chronic, continue home medications - metoprolol 50 mg BID - blood pressures are hypotensive, patient remains asymptomatic hold bumex 2 mg BID given 1L NS at 75 ml/hr on 05/17, monitor volume status as patient has HF history (3) Type 2 diabetes mellitus: Qualifiers: Diabetes mellitus long-term insulin use: without long-term use Diabetes mellitus complication status: without complication Qualified Code(s): E11.9 - Type 2 diabetes mellitus without complications Code(s): E11.9 - Type 2 diabetes mellitus without complications Status: Acute Assessment and Plan: - hypoglycemia protocol - POC blood glucose ACHS - home medication - metformin 500 mg BID - correct regimen ordered - low dose TIDWM and HS - A1C 5.9 Glucose levels remain stable. (4) Diastolic heart failure: Code(s): I50.30 - Unspecified diastolic (congestive) heart failure Status: Acute Assessment and Plan: BNP 2980 on 05/07, repeat 5120 Chest XR and CTA without signs of hypervolemia Appears euvolemic on exam Echo 04/05/25: LVEF 60-65% with grade I diastolic dysfunction, severe tricuspid regurgitation, and severe pulmonary hypertension Previously seen by cardiology 05/08/25 who states that patient will need further evaluation of tricuspid regurgitation and pulmonary hypertension Hypotensive, given 1L NS at 75ml/hr on 05/17. Will closely monitor for hypervolemia. bumex 2 mg BID placed on hold Repeat echo given ongoing hypoxia and worsening BNP from baseline (5) Paroxysmal atrial fibrillation: Code(s): I48.0 - Paroxysmal atrial fibrillation Status: Acute Assessment and Plan: Chronic, currently in afib - metoprolol 50 mg BID - Xarelto 20 mg daily - Continue to monitor Time Spent With Patient Time with patient: 25 - 35 minutes Subjective Date/time seen: 05/19/25 15:35 Interval history: 79-year-old female with past medical history of sarcoidosis, essential hypert ension, diastolic CHF, pulmonary hypertension, paroxysmal atrial fibrillation, type 2 diabetes mellitus, hypothyroidism and GERD who presented to the hospital from assisted living for shortness of breath and cough. Pt is seen and examined. PT/OT ordered. anticipate home o2 test tomorrow. stable overnight. Review of Systems Review of Systems: All systems reviewed & are unremarkable except as noted in HPI and below Exam Narrative: AF HR 98 RR 18 SpO2 98 BP 106/80 General: female in no acute respiratory distress who is nontoxic appearing, sitting up in bed HEENT: Normocephalic. Atraumatic. Extraocular movement intact. Sclera clear and anicteric. No facial asymmetry. Chest: Lungs are slightly diminished to the lower bases to auscultation bilaterally. No wheezes or crackles. CV: Heart was regular rate and rhythm. S1-S2. No murmurs, gallops, or rubs. Abd: Abdomen was soft. Nontender. Nondistended. Positive bowel sounds. No organomegaly or masses. Ext: No clubbing, cyanosis, or edema. DP pulses bilaterally. Neuro: Patient is alert and oriented x4. Speech is clear. Objective Data Vital Signs Vital Signs: Vital Signs - 24 hr 05/18/25 16:00 05/18/25 20:00 05/18/25 20:06 Temperature 97.1 F L Pulse Rate 95 114 H 94 Respiratory Rate 19 Blood Pressure 95/55 L Pulse Oximetry 95 Oxygen Delivery Oxygen Flow Rate 05/18/25 20:30 05/18/25 22:10 05/19/25 00:04 Temperature Pulse Rate 94 106 H Respiratory Rate 19 14 Blood Pressure Pulse Oximetry 95 91 Oxygen Delivery Room Air Nasal Cannula Oxygen Flow Rate 2 05/19/25 04:00 05/19/25 05:20 05/19/25 07:33 Temperature 97.5 F L Pulse Rate 97 84 Respiratory Rate 18 Blood Pressure 90/69 L Pulse Oximetry 100 95 Oxygen Delivery Nasal Cannula Oxygen Flow Rate 2 05/19/25 08:03 05/19/25 08:45 05/19/25 12:02 Temperature Pulse Rate 114 H 117 H Respiratory Rate Blood Pressure Pulse Oximetry 95 Oxygen Delivery Nasal Cannula Oxygen Flow Rate 2 Intake/Output Intake/Output: Intake & Output 05/16/25 05/17/25 05/18/25 05/19/25 23:59 23:59 23:59 23:59 Intake Total 770 360 240 Balance 770 360 240 Meds/Results Medications: Active Medications Generic Name Dose Route Start Last Admin Trade Name Freq PRN Reason Stop Dose Admin Acetaminophen 650 mg 05/17/25 08:33 05/19/25 14:25 Acetaminophen 325 Mg Tablet PO 650 mg Q4H PRN Administration Mild Pain (1-3) or Fever Bumetanide 2 mg 05/17/25 09:00 05/17/25 09:05 Bumetanide 1 Mg Tablet PO Not Given BID EKRLINE Dextrose 12.5 gm 05/17/25 08:47 Dextrose 50% 25 Gm/50 Ml Syringe IV PUSH PRN PRN Hypoglycemia Protocol Ferrous Sulfate 325 mg 05/17/25 09:00 05/19/25 08:46 Ferrous Sulfate [address] BY MOUTH 325 mg Q48H KERLINE Administration Fluoxetine HCl 40 mg 05/17/25 09:00 05/19/25 08:46 Fluoxetine Hcl 20 Mg Capsule PO 40 mg DAILY KERLINE Administration Gabapentin 600 mg 05/17/25 09:00 05/19/25 11:59 Gabapentin 300 Mg Capsule PO 600 mg TID KERLINE Administration Glucagon 1 mg 05/17/25 08:47 Glucagon For Inj 1 Mg Vial IM PRN PRN Hypoglycemia Protocol Glucose 15 gm 05/17/25 08:47 Glucose Oral Gel 15 Gm Of Glucse In 37.5 Gm Tube PO PRN PRN Hypoglycemia Protocol Dextrose 1,000 mls @ 100 mls/hr 05/17/25 08:47 Dextrose 5% 1,000 Ml IVPB PRN PRN Hypoglycemia Protocol Insulin Aspart 2 - 5 units 05/17/25 12:00 05/19/25 11:54 Insulin Aspart (*Bkc) 100 Units/Ml SUB-Q Not Given TIDWM [facility] Protocol Levothyroxine Sodium 0 mcg 05/17/25 08:35 05/19/25 05:38 Levothyroxine Sodium 125 Mcg Tablet PO 125 mcg DAILY@0630 KERLINE Administration Metoprolol Tartrate 50 mg 05/17/25 08:31 05/17/25 09:05 Metoprolol Tartrate 50 Mg Tab PO 50 mg Q12H PRN Administration elevated HR Pantoprazole Sodium 40 mg 05/17/25 17:00 05/19/25 08:47 Pantoprazole 40 Mg Tablet PO 40 mg BID KERLINE Administration Potassium Chloride 20 meq 05/17/25 09:00 05/19/25 08:46 Potassium Chloride 20 Meq Er Tablet PO 20 meq BID KERLINE Administration Pramipexole Dihydrochloride 1 mg 05/17/25 09:00 05/19/25 11:59 Pramipexole 1 Mg Tablet PO 1 mg TID KERLINE Administration Rivaroxaban 20 mg 05/17/25 09:00 05/19/25 08:47 Rivaroxaban 20 Mg Tablet PO 20 mg DAILY KERLINE Administration Rosuvastatin Calcium 10 mg 05/17/25 09:00 05/19/25 08:47 Rosuvastatin 10 Mg Tablet PO 10 mg DAILY KERLINE Administration Radiology Results: ITS Impressions Chest X-Ray 05/17/25 05:54 Impression: Clear lungs. Cardiomegaly with pacemaker device. Chest CTA 05/17/25 05:57 Impression: No evidence of pulmonary embolus, aortic dissection, or aortic aneurysm. Stable extensive chronic interstitial disease in the lungs. Stable mediastinal/hilar lymphadenopathy, largest node in the subcarinal region. Dilated main pulmonary artery suggests pulmonary artery hypertension. Labs Labs: Laboratory Results - last 24 hr 05/18/25 05/18/25 05/19/25 16:44 19:54 05:44 WBC 7.3 RBC 3.87 L Hgb 9.4 L Hct 33.0 L MCV 85.3 MCH 24.3 L MCHC 28.5 L RDW 20.8 H Plt Count 179 MPV 9.4 Sodium 137 Potassium 4.6 Chloride 105 Carbon Dioxide 26 Anion Gap 6 BUN 12 Creatinine 0.77 Estim Creat Clear Calc 59 Estimated GFR > 60 Glucose 104 POC Capillary Glucose 104 122 H Calcium 9.2 Total Bilirubin 0.5 AST 29 ALT 13 Alkaline Phosphatase 69 Total Protein 6.8 Albumin 3.5 05/19/25 05/19/25 07:55 11:47 WBC RBC Hgb Hct MCV MCH MCHC RDW Plt Count MPV Sodium Potassium Chloride Carbon Dioxide Anion Gap BUN Creatinine Estim Creat Clear Calc Estimated GFR Glucose POC Capillary Glucose 97 84 Calcium Total Bilirubin AST ALT Alkaline Phosphatase Total Protein Albumin Quality VTE Prophylaxis VTE prophylaxis: pharmacologic ordered
[2025-05-20] VITALS (9 sets, daily range): BP systolic 110; BP diastolic 70; PULSE 71–102; RESP 18; TEMP 36.4; O2SAT 93–97
[2025-05-20] MEDS: LEVOTHYROXINE SODIUM 125 MCG TABLET PO (05:35)
[2025-05-20 06:07] LABS: Hematocrit 30.9 % (37.0-47.0); Hemoglobin 8.5 g/dL (12.0-15.0); Mean Corpuscular HGB Conc 27.5 g/dl (32-36); Mean Corpuscular Hemoglobin 24.1 pg (26-34); Mean Corpuscular Volume 87.5 fl (80-100); Platelet Count Result 179 k/mm3 (150-375); Red Blood Count 3.53 M/mm3 (4.2-5.4); White Blood Count 7.0 K/mm3 (4.5-10.0)
[2025-05-20 06:31] LABS: Alanine Aminotransferase 16 U/L (6-35); Albumin Level 3.3 g/dL (3.5-5.1); Alkaline Phosphatase 71 U/L (38-126); Anion Gap 4 mmol/L (4-12); Aspartate Amino Transferase 37 U/L (14-36); Bilirubin,Total 0.5 mg/dL (0.2-1.3); Blood Urea Nitrogen 12 mg/dL (7-17); Calcium 8.9 mg/dL (8.4-10.2); Carbon Dioxide 26 mmol/L (22-30); Chloride 104 mmol/L (98-107); Estimated CRCL calculation 63 ml/min; Estimated Glomerular Filt Rate > 60; Glucose 104 mg/dL (65-110); Potassium 4.7 mmol/L (3.4-5.0); Sodium 134 mmol/L (137-145); Total Protein 6.5 g/dL (6.3-8.2)
[2025-05-20] MEDS: GABAPENTIN 300 MG CAPSULE 600 MG PO ×2 (09:52→12:22)
[2025-05-20] MEDS: RIVAROXABAN 20 MG TABLET PO (09:52)
[2025-05-20] MEDS: ROSUVASTATIN 10 MG TABLET PO (09:52)
[2025-05-20] MEDS: PRAMIPEXOLE 1 MG TABLET PO ×2 (09:52→12:22)
[2025-05-20] MEDS: POTASSIUM CHLORIDE 20 MEQ ER TABLET PO (09:52)
[2025-05-20] MEDS: PANTOPRAZOLE 40 MG TABLET PO (09:52)
--- NOTE | 2025-05-20 11:15 | PM.DS ---
DS: Admitting Diagnosis Discharge Date 05/20 Admitting Diagnosis sob DS: Discharge Diagnosis Discharge Diagnosis (1) Hypoxia: Code(s): R09.02 - Hypoxemia Status: Acute (2) Essential hypertension: Code(s): I10 - Essential (primary) hypertension Status: Acute (3) Type 2 diabetes mellitus: Qualifiers: Diabetes mellitus complication status: without complication Diabetes mellitus buttermaker continuous churn insulin use: without mcfp use Qualified Code(s): E11.9 - Type 2 diabetes mellitus without complications Code(s): E11.9 - Type 2 diabetes mellitus without complications Status: Acute (4) Diastolic heart failure: Code(s): I50.30 - Unspecified diastolic (congestive) heart failure Status: Acute (5) Paroxysmal atrial fibrillation: Code(s): I48.0 - Paroxysmal atrial fibrillation Status: Acute DS: Summary Hospital Course Hospital Course: 79-year-old female with past medical history of sarcoidosis, essential hypertension, diastolic CHF, pulmonary hypertension, paroxysmal atrial fibrillation, type 2 diabetes mellitus, hypothyroidism and GERD who presented to the hospital from assisted living for shortness of breath and cough. Pt was just admitted here on 05/07-05/09 with sob and chf exacerbation and was seen per cardiology. Cardiology recommended transition back to bumex 2mg BID starting on 05/09. They recommended that the patient follow up with her pcp/general office worker regarding up titrating her Bumex and possibly adding metolazone 2.5 mg daily. They also recommend the patient follow up regarding her worsening tricuspid valve regurgitation and pulmonary hypertension. This can be done in the outpatient setting. She was instructed to call and schedule an fany with her general office worker scarlet a week of discharge. This morning, she is calm and comfortable, no chest pain. Home O2 eval is ordered. PT/OT ordered and completed. She is stable for discharge with a close f/u with her general office worker for further workup. # hypoxemia Per chart review sats were noted to drop and were ranging between 89-91% on room air, however no vital sign documentation of desaturation Patient states she drops into the 80s consistently with ambulation, will require a home O2 eval prior to discharge - Symptoms: shortness of breath and cough - Oxygen supplementation: Weaned back to room air with stable saturations. Maintain spO2 > 90%. - Viral panel negative - EKG: atrial fibrillation - Chest XR: clear lungs with cardiomegaly and pacemaker - Chest CTA: no PE, aortic dissection, or aortic aneurysm. Stable extensive chronic interstitial disease in the lungs. Stable mediastinal/hilar lymphadenopathy, largest node in the subcarinal region. Dilated main pulmonary artery suggests pulmonary artery hypertension. -patient will need a home O2 evaluation prior to discharge -given history of snoring and increased fatigue throughout the day will obtain an ApneaLink to assess for nocturnal oxygen requirement verses CARLOS - home o2 eval prior to discharge # htn Chronic, continue home medications - metoprolol 50 mg BID - blood pressures are hypotensive, patient remains asymptomatic hold bumex 2 mg BID given 1L NS at 75 ml/hr on 05/17, monitor volume status as patient has HF history # t2dm hypoglycemia protocol - POC blood glucose ACHS - home medication - metformin 500 mg BID - correct regimen ordered - low dose TIDWM and HS - A1C 5.9 Glucose levels remain stable. # Diastolic heart failure: BNP 2980 on 05/07 Chest XR and CTA without signs of hypervolemia Appears euvolemic on exam Echo 04/05/25: LVEF 60-65% with grade I diastolic dysfunction, severe tricuspid regurgitation, and severe pulmonary hypertension Previously seen by cardiology 05/08/25 who states that patient will need further evaluation of tricuspid regurgitation and pulmonary hypertension Hypotensive, given 1L NS at 75ml/hr on 05/17. Will closely monitor for hypervolemia. Bumex 2 mg BID placed on hold Repeat echo given ongoing hypoxia and worsening BNP from baseline Echo stable Will decrease bumex dose to 1mg bid as 2 mg bid was held as BP was low but need to restart some diureses to avoid CHF exacerbation and readmission. it is important for pt to follow up with cardiology as soon as possible to review regimen and make necessary adjustments # afib Chronic, currently in afib - metoprolol 50 mg BID - Xarelto 20 mg daily Time Spent with Patient Time attestation: Total time spent providing and/or coordinating discharge services: Exam Narrative: AF HR 98 RR 18 SpO2 98 BP 106/80 General: female in no acute respiratory distress who is nontoxic appearing, sitting up in bed HEENT: Normocephalic. Atraumatic. Extraocular movement intact. Sclera clear and anicteric. No facial asymmetry. Chest: Lungs are slightly diminished to the lower bases to auscultation bilaterally. No wheezes or crackles. CV: Heart was regular rate and rhythm. S1-S2. No murmurs, gallops, or rubs. Abd: Abdomen was soft. Nontender. Nondistended. Positive bowel sounds. No organomegaly or masses. Ext: No clubbing, cyanosis, or edema. DP pulses bilaterally. Neuro: Patient is alert and oriented x4. Speech is clear. DS: Data Data Completed and Pending Labs on day of discharge: Labs from last 24 hours 05/20/25 05/20/25 05/19/25 07:42 05:46 20:35 WBC 7.0 RBC 3.53 L Hgb 8.5 L Hct 30.9 L MCV 87.5 MCH 24.1 L MCHC 27.5 L RDW 20.8 H Plt Count 179 MPV 11.0 H Sodium 134 L Potassium 4.7 Chloride 104 Carbon Dioxide 26 Anion Gap 4 BUN 12 Creatinine 0.72 Estim Creat Clear Calc 63 Estimated GFR > 60 Glucose 104 POC Capillary Glucose 103 118 H Calcium 8.9 Total Bilirubin 0.5 AST 37 H ALT 16 Alkaline Phosphatase 71 Total Protein 6.5 Albumin 3.3 L 05/19/25 05/19/25 16:57 11:47 WBC RBC Hgb Hct MCV MCH MCHC RDW Plt Count MPV Sodium Potassium Chloride Carbon Dioxide Anion Gap BUN Creatinine Estim Creat Clear Calc Estimated GFR Glucose POC Capillary Glucose 105 84 Calcium Total Bilirubin AST ALT Alkaline Phosphatase Total Protein Albumin Discharge Plan Discharge Attending physician on discharge: Jay Rebollar Consulting providers: Chula Bui Discharging Clinician: Gisselle Mcdaniel Patient Disposition: NH [facility] Activity: march shower Diet: heart healthy Discharge Instructions: You were admitted for shortness of breath. This is your second admission this month for the same issue. During your admission on 05/07-05/09 you were seen per cardiology and they recommended transition back to bumex 2mg twice a day starting on 05/09. They recommended that you follow up with her pcp/general office worker regarding up titrating Bumex and possibly adding metolazone 2.5 mg daily. They also recommend the follow up regarding worsening tricuspid valve regurgitation and pulmonary hypertension- both of the issues can be addressed and evaluated as an outpatient. It is important that you call and schedule f/u within 1 week after discharge, so they can review your regimen and adjust medications if needed. Your blood pressures was a bit on a lower side, even though you didnot have any symptoms, we were holding bumex 2 mg twice a day but will restart it at a lower dose to avoid heart failure exacerbation. Please restart it at 1 mg twice a day. It is very important that you see your general office worker within few days after discharge, so they can guide you with your medications regimen. Patient Instructions: Antibiotic Form Patient Language: Hungarian Stand Alone Forms: General Discharge Information Follow-up/Referrals: Eloina Erazo [Other] - 1 Week Provider,Protocol [Physician] - 1 Week (please see your general office worker within 1 week) Discharge Medications: Continued PreserVision AREDS [phone] [id number] capsule 1 cap PO BID Xarelto 20 mg tablet 20 mg PO DAILY Rx Instructions: take each evening metoprolol tartrate 50 mg tablet 50 mg PO Q12H PRN (Reason: elevated HR) Rx Instructions: take if HR is greater than 120 for extended time ferrous sulfate [FeroSul] 325 mg (65 mg iron) tablet 325 mg PO EVERY OTHER DAY potassium chloride 20 mEq tablet extended release 20 meq PO BID acetaminophen 650 mg tablet extended release 1,300 mg PO Q12H tramadol 50 mg tablet 50 mg PO QHS PRN (Reason: pain) Qty: 30 1RF gabapentin 600 mg tablet 600 mg PO TID Qty: 270 1RF metformin 500 mg tablet 500 mg PO BID Qty: 180 3RF rosuvastatin [Crestor] 10 mg tablet 10 mg PO DAILY Qty: 90 1RF levothyroxine 125 mcg tablet See Rx Instructions .ROUTE .COMPLEX Qty: 90 1RF Dose Instruction: TAKE 1 TABLET BY MOUTH DAILY Rx Instructions: TAKE 1 TABLET BY MOUTH DAILY fluoxetine [Prozac] 20 mg capsule 40 mg PO DAILY Qty: 180 1RF pramipexole 1 mg tablet 1 mg PO TID Qty: 270 1RF omeprazole 20 mg capsule,delayed release(DR/EC) 20 mg PO BID Qty: 180 3RF Changed bumetanide 2 mg tablet 1 mg PO BID Qty: 90 0RF Discontinued nitrofurantoin monohyd/m-cryst 100 mg capsule 100 mg PO Q12H Patient Comments: pt stated that this caused her current issues Date of admission: 05/17/25 05:08 Primary Care Provider: Eloina Erazo Admitting Provider: Lupe Carcamo Attending physician on admission: Lupe Carcamo Condition: Improved Quality VTE Prophylaxis VTE prophylaxis: pharmacologic ordered Hospitalist MIPS Heart Failure (Exclusion) Patient has history of Heart Transplant or Left Ventricular Assistive Device?: No IF YES, STOP HERE Heart Failure (Qualifier) Patient has current or prior documentation of LVEF less than or equal to 40%, or mod/servere depressed LVSF?: No IF NO, STOP HERE
--- NOTE | 2025-05-20 11:32 | HOMEO2EVAL ---
Evaluation [facility] Home Oxygen Evaluation RC: Home Oxygen (O2) Evaluation Start: 05/20/25 10:15 Freq: ONCE Status: Active Protocol: RPE Activity Type Activity Date Activity User E-sign Co-sign Detail Recorded Client Recorded Date Recorded By Document 05/20/25 11:00 DJO [email or web address] 05/20/25 11:31 DJO Document 05/20/25 11:05 DJO [email or web address] 05/20/25 11:31 DJO Document 05/20/25 11:30 DJO [email or web address] 05/20/25 11:31 DJO 05/20/25 05/20/25 05/20/25 11:00 11:05 11:30 Home O2 Evaluation [Oxygen] -Test Phase Resting Exercise Resting -Oxygen Delivery Room Air Room Air Room Air [Pulse Oximetry] -Pulse Oximetry (90-100 %) 97 93 97 [Pulse Rate] -Pulse Rate (60-100 beats/min) 76 89 78 [Evaluation] -Activity Tolerance Good [Exercise] -Ambulation Distance (feet) 500 -Ambulation Distance (meters) 152.39 [Charges] -Evaluation Charges O2 Evaluation by Pulmonary
--- NOTE | 2025-05-20 11:34 | PCRCNOTE ---
HOME O2 EVAL COMPLETE, NO REQUIREMENTS
--- NOTE | 2025-05-21 08:17 | P.CDI_ITS ---
CDI Query Clarification Request Please clarify type and acuity of heart failure if known. * Acute * Chronic * Acute on Chronic * Unknown * Systolic * Diastolic * Combined Systolic and Diastolic * Unknown The medical chart reflects the followin/16 note: (4) Diastolic heart failure: Code(s): I50.30 - Unspecified diastolic (congestive) heart failure Status: Acute Assessment and Plan: BNP 2980 on 05/07, repeat 5120 Chest XR and CTA without signs of hypervolemia Appears euvolemic on exam Echo 04/05/25: LVEF 60-65% with grade I diastolic dysfunction, severe tricuspid regurgitation, and severe pulmonary hypertension Previously seen by cardiology 05/08/25 who states that patient will need further evaluation of tricuspid regurgitation and pulmonary hypertension Hypotensive, given 1L NS at 75ml/hr on 05/17. Will closely monitor for hypervolemia. bumex 2 mg BID placed on hold Repeat echo given ongoing hypoxia and worsening BNP from baseline Discharge note: Pt was just admitted here on 05/07-05/09 with sob and chf exacerbation and was seen per cardiology. ECHO 05/18: Summary 1. The left ventricle is normal in size and systolic function. The left ventricular ejection fraction is visually estimated to be 60-65%. 2. The right ventricle is dilated with reduced systolic function. 3. There is ventricular septal flattening suggestive of volume and pressure overload. 4. There is severe biatrial enlargement. 5. Dilated inferior vena cava with <50% collapse upon inspiration consistent with significantly elevated right atrial pressure, 15 mmHg. 6. There is severe pulmonary hypertension with estimated PASP of 90 mmHg. Bumex PO BID <Estelita Amanda RN - Last Filed: 05/21/25 08:20> Clarified Diagnosis Clarified Diagnosis: diastolic acute as indicated in the notes <Gisselle Mcdaniel APRN - Last Filed: 05/21/25 15:38>
== END 2025-05-20 13:15 | DRG 314 ==
LOC: ANHED 04:23 → ANH3MEDSUR 05:37
PROVIDERS: Student in an Organized Health Care Education/Training Program; Admitting Provider General Practice; Emergency Provider Emergency Medicine; Visit Provider Nurse Practitioner
DX: I27.20 Pulmonary hypertension, unspecified (principal); I50.33 Acute on chronic diastolic (congestive) heart failure; I48.20 Chronic atrial fibrillation, unspecified; R09.02 Hypoxemia; D86.9 Sarcoidosis, unspecified; I11.0 Hypertensive heart disease with heart failure; D50.9 Iron deficiency anemia, unspecified; E11.9 Type 2 diabetes mellitus without complications; E03.9 Hypothyroidism, unspecified; E78.5 Hyperlipidemia, unspecified; F32.A Depression, unspecified; G47.33 Obstructive sleep apnea (adult) (pediatric); G25.81 Restless legs syndrome; K21.9 Gastro-esophageal reflux disease without esophagitis; Z95.0 Presence of cardiac pacemaker; Z98.41 Cataract extraction status, right eye; Z98.42 Cataract extraction status, left eye; Z96.1 Presence of intraocular lens; Z96.611 Presence of right artificial shoulder joint; Z79.84 Long term (current) use of oral hypoglycemic drugs; Z20.822 Contact with and (suspected) exposure to COVID-19; Z79.01 Long term (current) use of anticoagulants
CPT/HCPCS: 36415; 71045; 71275; 80053; 82948; 83036; 83735; 83880; 85025; 85027; 87637; 93005; 94618; 94762; 96365; 96366; 97161; 99285; A9270; C8929; J3475; J7030; Q9957; Q9967

== ENCOUNTER 2025-05-29 11:30 | Inpatient (IN) | payer MEDICARE, OTHER, SELFPAY ==
[2025-05-29] VITALS (38 sets, daily range): BP systolic 94–118; BP diastolic 57–92; PULSE 73–86; RESP 13–28; TEMP 36.4–36.9; O2SAT 89–100; BMI 40.8
--- NOTE | ~2025-05-29 | XR_ITS ---
CHEST RADIOGRAPH CLINICAL HISTORY: LT SIDE CHEST PAIN RADIATING TO LT SHOULDER . COMPARISON: 05/17/2025 TECHNIQUE: Single portable view of the chest. FINDINGS A right reverse shoulder prosthetic is identified. The left mid to lower lung is partially obscured due to pacemaker generator. Wires project over the right atrium and right ventricle. The remainder of the cardiomediastinal silhouette is otherwise unremarkable. Left upper lobe calcified granuloma. Interstitial thickening is otherwise identified. IMPRESSION: Interstitial thickening, without focal infiltrate or effusion. Reviewed, dictated and finalized at location A.
--- NOTE | ~2025-05-29 | CT_ITS ---
EXAMINATION: CTA chest PE protocol DATE: 05/29/2025 13:30 CDT INDICATION: Hypoxia and pleuritic chest pain TECHNIQUE: Computed tomographic angiography (CTA) of the chest was performed with 100 mL Omnipaque-35 0 intravenous contrast. The dose-length product was 388.65 mGy-cm. Maximum intensity projection 3D-re constructions of the aorta and other arteries were constructed by the technologist on a separate work station. COMPARISON: 05/17/2025 FINDINGS/OBSERVATIONS: PULMONARY ARTERIES: No filling defect is identified within the main or proximal pulmonary artery. The main pulmonary artery is enlarged, suggesting pulmonary hypertension. THORACIC AORTA: No aneurysmal dilatation or dissection is present. The great vessels are intact LUNGS: Redemonstration of interstitial thickening and mosaic attenuation within the bilateral lung fi elds, likely chronic. This mosaic pattern of attenuation is more prominent on today's study than on p revious examination. MEDIASTINUM: Multiple morphologically suspicious and pathologically enlarged lymph nodes are identifi ed within the mediastinum. Interval enlargement of the subcarinal lymph node measuring 3.1 cm in short axis dimension, increased from 2.6 cm on the previous study. Enlarged aortopulmonary window lymph nodes are also noted, the largest measuring 10.1 mm in short axi s dimension. BONES OF THE CHEST: No acute fracture. No significant degenerative disease. No lytic or blastic lesions. HEART: The heart is enlarged, without pericardial effusion. IMPRESSION: No pulmonary embolus. No thoracic aortic dissection. Redemonstration of mediastinal lymphadenopathy, increased in size from prior examination. Increase in prominence of the mosaic attenuation of the bilateral lung henderson, for which follow-up no nemergent high-resolution CT is recommended, for further characterization. Redemonstration of mediastinal lymphadenopathy. Interval enlargement of the subcarinal lymph node, de tected on prior study. Reviewed, dictated and finalized at location A. IMPRESSION: No pulmonary embolus. No thoracic aortic dissection. Redemonstration of mediastinal lymphadenopathy, increased in size from prior ex amination. Increase in prominence of the mosaic attenuation of the bilateral lung henderson, for which follow-up nonemergent high-resolution CT is recommended, for further characterization. Redemonstration of mediastinal lymphadenopathy. Interval enlargement of the sub carinal lymph node, detected on prior study.
--- NOTE | 2025-05-29 11:33 | ECG_ITS ---
Test Date: 2025-05-29 11:37:28 Measurements Intervals [place] Rate: 82 P: 53 MA: 159 QRS: -3 QRSD: 104 T: -28 QT: 472 QTc: 554 Interpretive Statements SINUS RHYTHM ST DEVIATION AND MODERATE T-WAVE ABNORMALITY, CONSIDER ANTEROLATERAL ISCHEMIA [-0.1+ mV T-WAVE IN V3-V6] ST DEVIATION AND MODERATE T-WAVE ABNORMALITY, CONSIDER INFERIOR ISCHEMIA [-0.1+ mV T-WAVE IN II/aVF] Compared to ECG 05/17/2025 09:29:09 T-wave abnormality now present Possible ischemia now present Atrial fibrillation no longer present Incomplete right bundle-branch block no longer present Electronically Signed On 05-30-2025 14:07:45 CDT by Steven Reynolds M.D.
--- OUTSIDE RECORDS SUMMARY | 2025-05-29 11:39 | XMS_ITS | Encounter Summary ---
Author Organization [facility] Address [address] [place] [address] Care Team Providers Care Brim Molder Name Role Phone Akil Chan MD Primary Care Provider [phone] Tyler Brady MD Unavailable [phone] Vinod López DO Primary Care Provider [phone] Encounter Details Date Type Department Care Team (Late st Contact Info) Description 09/05/2018 bright box Message Enc [facility] at [facility], [facility] [address] [place] [address] [facility]. [facility] [address] [place], [place] [id number] Medication Questions Social History Tobacco Use Types [...] Sex Assigned at Female 11/05/2018 3:21 PM FRAMING MILL OPERATOR Legal Sex Female 6:14 PM CDT Gender Identity Female 11/05/2018 3:21 PM FRAMING MILL OPERATOR Sexual Orientation Not on file documented as of this encounter Plan of Treatment Not on file documented as of this encounter Visit Diagnoses Not on filedocumented in this encounter Care Teams Brim Molder Relationship Specialty Start Date End Date Akil Chan MD PCP - General INTERNAL MEDICINE 09/01/18 03/15/19 Vinod López DO [address] [place] [address] [address] [place], [place] [id number] PCP - General INTERNAL MEDICINE 03/16/19 Tyler Brady MD [facility] [address] [place] [address] [employer] Project Engineer CARDIOVASCULAR DISEASE 09/01/18 documented as of this encounter
--- OUTSIDE RECORDS SUMMARY | 2025-05-29 11:39 | XMS_ITS | Continuity of Care Document ---
Author Name [facility] Organization [facility] Care Team Providers Care Housing Director Name Role Phone [facility] Unavailable Unavailable Medications Combined list of outpatient [...] BOEHRINGER ING., 30 ea. BOTTLE Cancele d [id number] : 2023 0 Pharmac y Data Transac tion Service Facilit y JARDIANCE (EMPAGLIFLO ZIN), 10 MG, TABLET, ORAL, BOEHRINGER ING., 90 ea. BOTTLE Active [id number] 4 2023 90 Pharmac y Data Transac tion Service Facilit y METOPROLOL TARTRATE (metoprolol tartrate), 50 MG, TABLET, ORAL, [employer] 1000 ea. BOTTLE Active [id number] 4 2023 180 Pharmac y Data Transac tion Service Facilit y Allergies, Adverse Reactions, Alerts Combined list of allergies from Department of Defense and Veterans Affairs facilities. It does not include entries that were removed or entered in error. Substance Category Reaction Severity Reaction type Status Date Reported Comments Source SULFA-DRUGS Drug allergy (disorder) Unknown active 10/01/2006 [facility] Jayesh RIZVI ([facility]) Immunizations Combined list of available immunizations from the Department of Defense and Veterans Affairs facilities. Immunization Series Date Given Administered By Site Reaction Lot Number CVX Code Drug Arcade Technician Status Comments Source Influenza vaccine, quadrivalent, adjuvanted 2020 YVAN, () Not Given Influenza vaccine, quadrival ent, adjuvante d [facility] COVID-19, mRNA, LNP-S, PF, 30 mcg/0.3 mL dose 2020 TONY, [employer] [place] (PFR) Not Given COVID-19, mRNA, LNP-S, PF, 30 mcg/0.3 mL dose DoD COVID-19, mRNA, LNP-S, PF, 30 mcg/0.3 mL dose 2020 YVAN, [employer] [place] (PFR) Not Given COVID-19, mRNA, LNP-S, PF, 30 mcg/0.3 mL dose DoD COVID-19, mRNA, LNP-S, PF, 30 mcg/0.3 mL dose 2020 CORINNE, [employer] [place] (PFR) Not Given COVID-19, mRNA, LNP-S, PF, 30 mcg/0.3 mL dose DoD zoster live 2013 SHEILA URENA DO () Not Given zoster live DoD Social History Combined list of available smoking, tobacco, and other social history from Department of Defense and Veterans Affairs facilities. Social History Type Response Date Comment [facility] e This section is an empty social history section. DoD
--- OUTSIDE RECORDS SUMMARY | 2025-05-29 11:39 | XMS_ITS | Encounter Summary ---
Author Organization [facility] Address [address] [place] [address] Care Team Providers Care Fondant Machine Operator Name Role Phone Akil Chan MD Primary Care Provider [phone] Tyler Brady MD Unavailable [phone] Vinod López DO Primary Care Provider [phone] Encounter Details Date Type Department Care Team (Late st Contact Info) Description 02/16/2019 Star Scientific Message Enc [facility] at [facility], [facility] [address] [place] [address] Tyler Brady MD [facility]. [facility] [address] [place], [place] [id number] Question Social History Tobacco Use Types Packs/Day [...] Sex Assigned at Female 11/05/2018 3:21 PM MILL OPERATOR Legal Sex Female 6:14 PM CDT Gender Identity Female 11/05/2018 3:21 PM MILL OPERATOR Sexual Orientation Not on file Occupation Industry Job Start Date Job End Date Not on file Not on file Not on file Not on file documented as of this encounter Plan of Treatment Not on file documented as of this encounter Visit Diagnoses Not on filedocumented in this encounter Care Teams Fondant Machine Operator Relationship Specialty Start Date End Date Akil Chan MD PCP - General INTERNAL MEDICINE 09/01/18 03/15/19 Vinod López DO [address] [facility] [address] [place] [address] PCP - General INTERNAL MEDICINE 03/16/19 Tyler Brady MD [facility] [address] [place] [address] [place] [employer] Equipment Sales Representative CARDIOVASCULAR DISEASE 09/01/18 documented as of this encounter
--- OUTSIDE RECORDS SUMMARY | 2025-05-29 11:39 | XMS_ITS | Encounter Summary ---
Author Organization [facility] Address [address] [place] [address] Care Team Providers Care Medical Care Administrator Name Role Phone Akil Chan MD Primary Care Provider Tyler Brady MD Unavailable [phone] Vinod López DO Primary Care Provider [phone] Encounter Details Date Type Department Care Team (Late st Contact Info) Description 09/17/2018 Hospital Orders Only [facility] at [facility], [address] [id number] Roger Mcnamara MD [facility]. [address] [address] Social History Tobacco Use Types [...] Sex Assigned at Female 11/05/2018 3:21 PM SPACE AND MISSILE OPERATIONS Legal Sex Female 6:14 PM CDT Gender Identity Female 11/05/2018 3:21 PM [employer]ACE AND MISSILE OPERATIONS Sexual Orientation Not on file documented as of this encounter Plan of Treatment Not on file documented as of this encounter Visit Diagnoses Not on filedocumented in this encounter Care Teams Medical Care Administrator Relationship Specialty Start Date End Date Akil Chan MD PCP - General INTERNAL MEDICINE 09/01/18 03/15/19 Vinod López DO [address] [place] [address] [address] [place] [address] PCP - General INTERNAL MEDICINE 03/16/19 Tyler Brady MD [facility] [address] [place] [address] Liberal Sport Shoe Spike Assembler CARDIOVASCULAR DISEASE 09/01/18 documented as of this encounter
--- OUTSIDE RECORDS SUMMARY | 2025-05-29 11:39 | XMS_ITS | Encounter Summary ---
Author Organization [facility] Address [address] [place] [address] Care Team Providers Care Blasting Machine Operator Name Role Phone Akil Chan MD Primary Care Provider [phone] Tyler Brady MD Unavailable [phone] Vinod López DO Primary Care Provider [phone] Encounter Details Date Type Department Care Team (Late st Contact Info) Description 11/22/2018 2sms Message Enc [facility] at [facility], [facility] [address] [place] [address] Tyler Brady MD [facility]. [facility] [address] [place] [address] RE: Medication Questions Social History [...] Sex Assigned at Female 11/05/2018 3:21 PM EXPERIMENTAL ROCKET SLED MECHANIC Legal Sex Female 6:14 PM CDT Gender Identity Female 11/05/2018 3:21 PM EXPERIMENTAL ROCKET SLED MECHANIC Sexual Orientation Not on file Occupation Industry Job Start Date Job End Date Not on file Not on file Not on file Not on file documented as of this encounter Plan of Treatment Not on file documented as of this encounter Visit Diagnoses Not on filedocumented in this encounter Care Teams Blasting Machine Operator Relationship Specialty Start Date End Date Akil Chan MD PCP - General INTERNAL MEDICINE 09/01/18 03/15/19 Vinod López DO [address] [facility] [address] [place] [address] PCP - General INTERNAL MEDICINE 03/16/19 Tyler Brady MD [facility] [address] [place] [address] [place] Consumer Loan Processor CARDIOVASCULAR DISEASE 09/01/18 documented as of this encounter
--- OUTSIDE RECORDS SUMMARY | 2025-05-29 11:39 | XMS_ITS | Encounter Summary ---
Author Organization [facility] Address [address] [place] [address] Care Team Providers Care Urban Planning Professor Name Role Phone Akil Chan MD Primary Care Provider [phone] Tyler Brady MD Unavailable [phone] Vinod López DO Primary Care Provider [phone] Encounter Details Date Type Department Care Team (Late st Contact Info) Description 12/18/2018 Adeyoh Message Enc [facility] at [facility], [facility] [address] [place] [address] Tyler Brady MD [facility]. [facility] [address] [place], [place] [id number] Follow Up/Update Social History Tobacco Use Types [...] Sex Assigned at Female 11/05/2018 3:21 PM SHEETMETAL PATTERNMAKER Legal Sex Female 6:14 PM CDT Gender Identity Female 11/05/2018 3:21 PM SHEETMETAL PATTERNMAKER Sexual Orientation Not on file Occupation Industry Job Start Date Job End Date Not on file Not on file Not on file Not on file documented as of this encounter Progress Notes * Tyler Brady MD - 12/19/2018 6:10 PM CST Hi, I think Mrs. Osorio should see whichever behavior therapist she is most comfortable seeing and can see the soonest. Thanks TMETAL PATTERNMAKER * Jimena Chapman RN - 12/19/2018 2:15 PM CST The behavior therapist referral has been in limbo since you [...] from the patient. Forwarded to Dr. Brady. TMETAL PATTERNMAKER documented in this encounter Plan of Treatment Not on file documented as of this encounter Visit Diagnoses Not on filedocumented in this encounter Care Teams Urban Planning Professor Relationship Specialty Start Date End Date Akil Chan MD PCP - General INTERNAL MEDICINE 09/01/18 03/15/19 Vinod López DO [address] [place] [address] PCP - General INTERNAL MEDICINE 03/16/19 Tyler Brady MD [facility] [address] [place] [address] Eddie Cognos Architect CARDIOVASCULAR DISEASE 09/01/18 documented as of this encounter
--- OUTSIDE RECORDS SUMMARY | 2025-05-29 11:39 | XMS_ITS | Encounter Summary ---
Author Organization [facility] Address [address] [place] [address] Care Team Providers Care Television Maintenance Worker Name Role Phone Akil Chan MD Primary Care Provider [phone] Tyler Brady MD Unavailable [phone] Vinod López DO Primary Care Provider [phone] Encounter Details Date Type Department Care Team (Late st Contact Info) Description 03/05/2019 ClearCycle Message Enc [facility] at [facility], [facility] [address] [place] [address] [facility]. [facility] [address] [place], [place] [id number] Medication Questions Social History Tobacco Use Types [...] Sex Assigned at Female 11/05/2018 3:21 PM PAPER CONE MACHINE OPERATOR Legal Sex Female 6:14 PM CDT Gender Identity Female 11/05/2018 3:21 PM PAPER CONE MACHINE OPERATOR Sexual Orientation Not on file Occupation Industry Job Start Date Job End Date Not on file Not on file Not on file Not on file documented as of this encounter Plan of Treatment Not on file documented as of this encounter Visit Diagnoses Not on filedocumented in this encounter Care Teams Television Maintenance Worker Relationship Specialty Start Date End Date Akil Chan MD PCP - General INTERNAL MEDICINE 09/01/18 03/15/19 Vinod López DO 2090 [email or web address] [facility] [address] [place] [address] PCP - General INTERNAL MEDICINE 03/16/19 Tyler Brady MD [facility] [address] [place] [address] Sarepta Oracle Database Consultant CARDIOVASCULAR DISEASE 09/01/18 documented as of this encounter
--- OUTSIDE RECORDS SUMMARY | 2025-05-29 11:39 | XMS_ITS | Encounter Summary ---
Author Organization [facility] Address [address] [place] [address] Care Team Providers Care Greenskeeper Laborer Name Role Phone Akil Chan MD Primary Care Provider [phone] Tyler Brady MD Unavailable [phone] Vinod López DO Primary Care Provider [phone] Encounter Details Date Type Department Care Team (Late st Contact Info) Description 09/03/2018 Abstract [facility] at [address] [id number] [place] Social History Tobacco Use [...] Sex Assigned at Female 11/05/2018 3:21 PM VISION CARE ASSOCIATE Legal Sex Female 6:14 PM CDT Gender Identity Female 11/05/2018 3:21 PM VISION CARE ASSOCIATE Sexual Orientation Not on file documented as [...] on filedocumented in this encounter Care Teams Greenskeeper Laborer Relationship Specialty Start Date End Date Akil Chan MD PCP - General INTERNAL MEDICINE 09/01/18 03/15/19 Vinod López DO 2089 [facility] [address] [place] [address] PCP - General INTERNAL MEDICINE 03/16/19 Tyler Brady MD [facility] [address] [place] [address] [place] Lace Tearing Supervisor CARDIOVASCULAR DISEASE 09/01/18 documented as of this encounter
--- OUTSIDE RECORDS SUMMARY | 2025-05-29 11:39 | XMS_ITS | Clinical Summary ---
Author Organization [facility] Address [address] [place] [address] Care Team Providers Care Customer Service Analyst Name Role Phone Tyler Brady MD Unavailable [phone] Vinod López DO Primary Care Provider [phone] Allergies Active Allergy Reactions Criticality Noted Date [...] 2 (two) times a day. 8 Active [place] 3 1000 MG Cap Take 1 tablet [...] sotalol therapy 019 PAF (paroxysmal atrial fibrillation) ([facility]) 11/05/2018 Mitral regurgitation 09/02/2018 Diabetes ([facility]) 09/02/2018 Class 3 severe obesity due t o excess calories without serious comorbidity with body mass index (BMI) of 45.0 to 49.9 in adult 09/02/2018 GERD (gastroesophageal reflux disease) 8 A-fib ([facility]) Essential hypertension Family History Medical History Relation Comments [place] Father Relation Status Comments Father (Age 71) [...] Sex Assigned at Female 11/05/2018 3:21 PM PULPWOOD CUTTER Legal Sex Female 6:14 PM CDT Gender Identity Female 11/05/2018 3:21 PM PULPWOOD CUTTER Sexual Orientation Not on file Occupation Industry [...] this topic Medical Devices Implanted Type Area Mold Blower Device Identifier Shelf Expiration Date Model / Serial / Lot Right Atrial Lead-03/17/2019 Implanted:Qty: 1 on 03/17/2019 by Tyler Brady MD Lead Implant Heart [facility] 01/01/20228TC-4 6 / [id number] / Right Ventricular Lead-03/17/2019 Implanted:Qty: 1 on 03/17/2019 by Tyler Brady MD Lead Implant Heart [facility] 02/01/20222087TC-5 2 / [id number] / Sj Pacemaker-03/17 Implanted:Qty: 1 on 03/17/2019 by Tyler Brady MD Pacemaker Left: Chest [facility] 09/03/2020 [id number] / [id number] / Procedures Procedure Name Priority Date/Time Associated Diagnosis Comments OCCULT BLOOD, FECES STAT 10/25/2018 9 :14 AM PULPWOOD CUTTER from Last 3 Months or Most Recently Relevant to Health Maintenance Results * OCCULT BLOOD, FECES (10/25/2018 9:14 AM PULPWOOD CUTTER) OCCULT BLOOD FECAL NEGATIVE NEGATIVE 10/25/2018 9:29 AM PULPWOOD CUTTER [facility] STOOL SPECIMEN / Unknown 10/25/2018 9:14 AM PULPWOOD CUTTER Delbert Chowdary MD BODY FLUIDS AND STOOLS ORDERABLE S Final Result [facility] [address] [place] [address], [place] [phone] from Last 3 Months or Most Recently Relevant to Health Maintenance Insurance MEDICARE [facility] MEDICARE [employer] Advance Directives Documents on File Type Date Recorded Patient Cash Shortage Investigator Expl anation Advance Directives and Living Will 03/18/2019 7:44 AM Signed 11-30-13[facility] Care * Full Code (Latest Code Status on File) Date Activated Date Inactivated Comments 03/18/2019 2:01 AM 03/18/2019 2:52 PM * Full Code Date Activated Date Inactivated Comments 11/05/2018 2:25 PM 11/06/2018 5:57 PM * Full Code Date Activated Date Inactivated Comments 09/18/2018 1:31 PM 09/18/2018 4:45 PM Care Teams Customer Service Analyst Relationship Specialty Start Date End Date Vinod López DO [address] [place] [address] PCP - General INTERNAL MEDICINE 03/16/19 Tyler Brady MD [facility] [address] [place] [address] Coquille Toy Mechanic CARDIOVASCULAR DISEASE 09/01/18
--- OUTSIDE RECORDS SUMMARY | 2025-05-29 11:39 | XMS_ITS | Encounter Summary ---
Author Organization [facility] Address [address] [place] [address] Care Team Providers Care Registered Nurse First Assistant Name Role Phone Akil Chan MD Primary Care Provider [phone] Tyler Brady MD Unavailable [phone] Vinod López DO Primary Care Provider [phone] Encounter Details Date Type Department Care Team (Late st Contact Info) Description 12/18/2018 MyCMangstort Message Enc [facility] Multispecialty Care - [address], [address] [place] [id number] Kal Delcid MD [address] [place] [address] AMARJIT [address] [place] [address] Follow Up/Update Social History Tobacco [...] Sex Assigned at Female 11/05/2018 3:21 PM WINDOWS LAPTOP TECHNICIAN Legal Sex Female 6:14 PM CDT Gender Identity Female 11/05/2018 3:21 PM WINDOWS LAPTOP TECHNICIAN Sexual Orientation Not on file Occupation Industry Job Start Date Job End Date Not on file Not on file Not on file Not on file documented as of this encounter Plan of Treatment Not on file documented as of this encounter Visit Diagnoses Not on filedocumented in this encounter Care Teams Registered Nurse First Assistant Relationship Specialty Start Date End Date Akil Chan MD PCP - General INTERNAL MEDICINE 09/01/18 03/15/19 Vinod López DO [address] [address] PCP - General INTERNAL MEDICINE 03/16/19 Tyler Brady MD [facility] [address] [place] [address] [place] Human Development Professor CARDIOVASCULAR DISEASE 09/01/18 documented as of this encounter
--- OUTSIDE RECORDS SUMMARY | 2025-05-29 11:39 | XMS_ITS | Encounter Summary ---
Author Organization [facility] Address [address] [place] [address] Care Team Providers Care Overcoil Stepper Name Role Phone Akil Chan MD Primary Care Provider [phone] Tyler Brady MD Unavailable [phone] Vinod López DO Primary Care Provider [phone] Encounter Details Date Type Department Care Team (Late st Contact Info) Description 09/10/2018 Travel Notes Message Enc [facility] at [facility], [facility] [address] [place] [address] Tyler Brady MD [facility]. [facility] [address] [place], [place] [id number] Medication Questions Social History Tobacco Use Types [...] Sex Assigned at Female 11/05/2018 3:21 PM TIRE GROOVER Legal Sex Female 6:14 PM CDT Gender Identity Female 11/05/2018 3:21 PM TIRE GROOVER Sexual Orientation Not on file documented as of this encounter Plan of Treatment Not on file documented as of this encounter Visit Diagnoses Not on filedocumented in this encounter Care Teams Overcoil Stepper Relationship Specialty Start Date End Date Akil Chan MD PCP - General INTERNAL MEDICINE 09/01/18 03/15/19 Vinod López DO [address] [place] [address] [address] [place], [place] [id number] PCP - General INTERNAL MEDICINE 03/16/19 Tyler Brady MD [facility] [address] [place] [address] [place] Evp Managing Director CARDIOVASCULAR DISEASE 09/01/18 documented as of this encounter
--- OUTSIDE RECORDS SUMMARY | 2025-05-29 11:39 | XMS_ITS | Encounter Summary ---
Author Organization [facility] Address [address] [place] [address] Care Team Providers Care Nnps Name Role Phone Akil Chan MD Primary Care Provider [phone] Tyler Brady MD Unavailable [phone] Vinod López DO Primary Care Provider [phone] Encounter Details Date Type Department Care Team (Late st Contact Info) Description 11/03/2018 Silent Herdsman Message Enc [facility] at [facility], [facility] [address] [place] [address] Tyler Brady MD [facility]. [facility] [address] [place] [address] Follow Up/Update Social History Tobacco [...] Sex Assigned at Female 11/05/2018 3:21 PM MANAGEMENT TRAINEE MARKETING Legal Sex Female 6:14 PM CDT Gender Identity Female 11/05/2018 3:21 PM MANAGEMENT TRAINEE MARKETING Sexual Orientation Not on file Occupation Industry Job Start Date Job End Date Not on file Not on file Not on file Not on file documented as of this encounter Plan of Treatment Not on file documented as of this encounter Visit Diagnoses Not on filedocumented in this encounter Care Teams Nnps Relationship Specialty Start Date End Date Akil Chan MD PCP - General INTERNAL MEDICINE 09/01/18 03/15/19 Vinod López DO 2090 [email or web address] [address] [place] [address] PCP - General INTERNAL MEDICINE 03/16/19 Tyler Brady MD [facility] [address] [place] [address] [place] Mixing And Molding Machine Operator CARDIOVASCULAR DISEASE 09/01/18 documented as of this encounter
--- OUTSIDE RECORDS SUMMARY | 2025-05-29 11:39 | XMS_ITS | Encounter Summary ---
Author Organization [facility] Address [address] [place] [address] Care Team Providers Care Technical Assistant Name Role Phone Vinod López DO Primary Care Provider [phone] Thanh Alexandre MD, Flash Unavailable [phone] Encounter Details Date Type Department Care Team (Late st Contact Info) Description 05/27/2025 Results Follow-Up [facility] Group Convenient Care at [address] [phone] Vijaya Buchanan NP [address] [place] [address] [address] [place] [address] Urine culture Urine, bladder Social History Tobacco Use Types Packs/Day Years Used Date Smoking Tobacco: Never Smokeless Tobacco: Never Alcohol Use Standard Drinks/Week Comments Yes 0 (1 standard drink = 0.6 oz pure alcohol) Very rarely - wine holiday meal Comments Unknown Sex and Gender Information Value Date Recorded Sex Assigned at Not on file Legal Sex Female 3:[address] MACHINERY INSPECTOR Gender Identity Female 11/18/2019 4:[address] MACHINERY INSPECTOR Sexual Orientation Straight 11/18/2019 4: [address] MACHINERY INSPECTOR documented as of this encounter Plan of Treatment Not on file documented as of this encounter Visit Diagnoses Not on filedocumented in this encounter Care Teams Technical Assistant Relationship Specialty Start Date End Date Vinod López DO PCP - General Internal Medicine 11/11/19 Flash Law Jr., MD Medical Oncologist/Maintenance Tech Medical Oncology 12/14/19 documented as of this encounter
--- OUTSIDE RECORDS SUMMARY | 2025-05-29 11:39 | XMS_ITS | Encounter Summary ---
Author Organization [facility] Address [address] [place] [address] Care Team Providers Care Powerhouse Electrician Name Role Phone Akil Chan MD Primary Care Provider [phone] Tyler Brady MD Unavailable [phone] Vinod López DO Primary Care Provider [phone] Reason for Visit * Reason Onset Date Comments Concerns 10/22/2018 Encounter Details Date Type Department Care Team (Late st Contact Info) Description 10/22/2018 [employer] Message [facility] at [facility], [facility] [address] [place] [address] Tyler Brady MD [facility] [address] [place] [address] Follow Up/Update Social History Tobacco [...] Sex Assigned at Female 11/05/2018 3:21 PM WOOD SETTER Legal Sex Female 6:14 PM CDT Gender Identity Female 11/05/2018 3:21 PM WOOD SETTER Sexual Orientation Not on file Occupation Industry [...] had no further questions. Message to the pathology secretary. SETTER * Tyler Brady MD - 10/22/2018 9:11 [...] when its convenient to her. Andrés Avalos SETTER * Jimena Chapman RN - 10/22/2018 8:54 [...] the patient. Message sent to Dr. Brady. SETTER documented in this encounter Plan of Treatment Not on file documented as of this encounter Visit Diagnoses Not on filedocumented in this encounter Care Teams Powerhouse Electrician Relationship Specialty Start Date End Date Akil Chan MD PCP - General INTERNAL MEDICINE 09/01/18 03/15/19 Vinod López DO [address] [facility] [address] [place], [place] [id number] PCP - General INTERNAL MEDICINE 03/16/19 Tyler Brady MD [facility]. [facility] [address] [place] [address] Varina Vending Mechanic CARDIOVASCULAR DISEASE 09/01/18 documented as of this encounter
--- OUTSIDE RECORDS SUMMARY | 2025-05-29 11:39 | XMS_ITS | Referral Summary ---
Author Organization [facility] Address [address] [place] [address] Care Team Providers Care Mobile Heavy Equipment Operator Name Role Phone Maribel Vinod DOUGLASS Primary Care Provider [phone] Thanh Alexandre MD, Flash Unavailable [phone] Encounters Date Type Department Care Team Description 05/27/2025 Results Follow-Up [facility] Convenient Care at [address] [phone] Vijaya Buchanan NP Urine culture Urine, bladder 05/25/2025 8:05 PM CDT - 05/25/2025 11:59 PM CDT Hospital Encounter [facility] [address] [place] [address] Acute cystitis with hematuria Discharge Disposition: Discharge to home or self care 05/25/2025 4:15 PM CDT Office Visit [facility] Convenient Care at [address] [phone] Eloina [place] PA Acute cystitis with hematuria (Primary Dx) 05/13/2025 Orders Only [facility] Medical Group Cardiology [address] [place] [phone] Tre Herrera MD 04/06/2025 Orders Only [facility] Information Management [address] [place] [address] Scanning, Provider from Last 3 Months Allergies Active Allergy Reactions Criticality Noted Date Comments Nitrofurantoin Redness,Swelling,Ur ticaria Medium 05/25/2025 Simvastatin Other (See comments) Low 11/18/2010 Sulfa (Sulfonamide Antibiotics) Rash Medium 05/25/2025 Reaction: Rash, , Medications metFORMIN (GLUCOPHAGE) 500 mg tablet take 1 tablet by oral route 2 times every day with morning and evening meals 0 0 02/17/20 15 Active rosuvastatin (CRESTOR) 10 mg tablet take 1 tablet by oral route every day 0 0 02/17/20 15 Active rivaroxaban (XARELTO) 20 mg tablet Take 1 tablet (20 mg total) by mouth daily. 90 tablet 3 08/06/20 18 Active ferrous sulfate 325 mg (65 mg of elemental iron) tabletIndicati ons:Iron Deficiency Anemia Take 1 tablet (325 mg total) by mouth 2 (two) times a day. 08/06/20 18 Active potassium chloride ER (KLOR-CON,K-DU R) 20 mEq CR tablet Take 1 tablet (20 mEq total) by mouth daily. 30 tablet 3 08/19/20 18 Active amiodarone (PACERONE) 100 mg tablet 05/25/20 25 Active metOLazone (ZAROXOLYN) 2.5 mg tablet Active cefdinir (OMNICEF) 300 mg capsule Take 1 capsule (300 mg total) by mouth 2 (two) times a day for 10 days 20 capsule 05/25/20 25 025 Active telmisartan (MICARDIS) 80 mg tablet take 1 tablet by oral route every day 0 0 02/17/20 15 025 Discontinued multivit-examiner of currency hf-orop-gwtxbt (CENTRUM SILVER ULTRA WOMEN'S) tablet 0 0 02/17/20 15 025 Discontinued loratadine (CLARITIN) 10 mg tablet take 1 tablet by oral route every day 0 0 02/17/20 15 025 Discontinued omeprazole (PriLOSEC) 20 mg capsule take 1 capsule by oral route every day before a meal 0 0 02/17/20 15 025 Discontinued levothyroxine (SYNTHROID) 175 mcg tablet take 1 tablet by oral route every day 0 0 01/31/20 17 025 Discontinued pramipexole (MIRAPEX) 0.25 mg tabletIndicati ons:Restless Legs Syndrome Take 1 tablet (0.25 mg total) by mouth 4 (four) times a day. 0 08/06/20 18 025 Discontinued gabapentin (NEURONTIN) 300 mg capsuleIndicat ions:Neuropath ic Pain,Restless Legs Syndrome Take 1 capsule (300 mg total) by mouth 4 (four) times a day. 08/06/20 025 Discontinued flecainide (TAMBOCOR) 50 mg tablet Take 1 tablet (50 mg total) by mouth 2 (two) times a day. 180 tablet 3 08/06/20 18 025 Discontinued( erapy completed) omega-3 fatty acids 1,000 mg capsule Take 1,000 mg by mouth daily. 0 08/06/20 025 Discontinued vit C,T-Bb-kcalu-l utein-zeaxan [id number] vz-xtzp-no-mg capsule Take 1 capsule by mouth 2 (two) times a day. 08/06/20 18 025 Discontinued eye lubricant combination no.1 (FRESHKOTE) 2-0.9-1.8 % drops Administer 0.05 mL (1 drop total) into affected eye(s) nightly. 0 08/06/20 18 025 Discontinued famotidine (PEPCID) 20 mg tablet Take 1 tablet (20 mg total) by mouth 2 (two) times a day. 60 tablet 11 08/06/20 025 Discontinued furosemide (LASIX) 20 mg tablet Take 1 tablet (20 mg total) by mouth 2 (two) times a day. 60 tablet 3 08/19/20 18 025 Discontinued metoprolol (LOPRESSOR) 25 mg tablet Take 1 tablet (25 mg total) by mouth 2 (two) times a day. 60 tablet 3 08/19/20 18 025 Discontinued acetaminophen (TYLENOL) 650 mg suppository Insert 650 mg into the rectum every 4 (four) hours as needed for pain 025 Discontinued metoprolol (LOPRESSOR) 50 mg tablet Take 50 mg by mouth 2 (two) times a day 025 Discontinued FLUoxetine (PROzac) 20 mg tablet Take 20 mg by mouth daily 025 Discontinued propafenone (RYTHMOL) 225 mg tablet Take 425 mg by mouth every 8 (eight) hours 025 Discontinued Active Problems Problem Noted Date Diagnosed Date 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 Immunizations Immunization Administration Dates Next Due Influenza, [...] on file Legal Sex Female 3:20 AM TANK WELDER Gender Identity Female 11/18/2019 4:40 AM TANK WELDER Sexual Orientation Straight 11/18/2019 4: 40 AM TANK WELDER Last Filed Vital Signs Vital Sign Reading Time Taken Comments Blood Pressure 104/72 05/25/2025 4:19 PM CDT Pulse 122 05/25/2025 4:19 PM CDT Temperature 36.5 C (97.7 F) 05/25/2025 4:19 PM CDT Respiratory Rate 20 05/25/2025 4:19 PM CDT Oxygen Saturation 97% 05/25/2025 4:19 PM CDT Inhaled Oxygen Concentration - - Weight 124 kg (273 lb 6.4 oz) 01/06/2020 2:08 PM TANK WELDER Height 161.3 cm (5' 3.5) 01/06/2020 2:08 PM TANK WELDER Body Mass Index 47.66 01/06/2020 2:08 PM TANK WELDER Plan of Treatment Not on file Procedures Procedure Name Priority Date/Time Associated Diagnosis Comments POCT URINALYSIS DIPSTICK Routine 05/25/2025 4:25 PM CDT Acute cystitis with hematuria URINE CULTURE Routine 05/25/2025 3:00 PM CDT Acute cystitis with hematuria CARDIOLOGY DOCUMENT SCAN Routine 05/08/2025 8:46 AM CDT CARDIOLOGY DOCUMENT SCAN 04/06/2025 from Last 3 Months Results * (ABNORMAL) POCT urinalysis dipstick (05/25/2025 4:25 PM CDT) Color, Urine, POC Colorless Clarity, ur, POC Cloudy(A) Clear Glucose, ur, POC 500.(A) Negative Bilirubin, ur, POC Negative Negative Ketones, ur, POC Negative Negative Specific Cavalier, POC 1.015 1.003 - 1.030 Blood, ur, POC Non-hemolyzed , trace(A) Negative pH, ur, POC 6.5 5.0 - 8.0 Protein, ur, POC Negative Negative Urobilinogen, urine, POC 0.2 0.2 - 1.0 mg/dL Nitrite, ur, POC Negative Negative Leukocytes, ur, POC Small(A) Negative Lot Number 0 Urine 05/25/2025 4:25 PM CDT Eloina PEREZ POINT OF CARE TEST ORDER PRANEETH Final Result * Urine culture Urine, bladder (05/25/2025 3:00 PM CDT) Report Final Report: Less than 100,000 colonies/mL (clinically insignificant growth based on current clinical standards) Comment:Testing performed by : [facility], [address] [facility], [place]., [address] Organism (CLINICALLY INSIGNIFICANT GROWTH MIGUEL Urine, bladder 05/25/2025 3: 00 PM CDT 05/25/2025 9:53 PM CDT Narrative MIGUEL - 05/27/2025 3:27 AM CDT Testing performed by [facility] Microbiology Laboratory ([phone]) Eloina PEREZ LAB MICROBIOLOGY - GENER AL ORDERABLES Final Result MIGUEL LINARES [address] [address] Department of Laboratories [place] [phone] * Cardiology Document Scan (05/08/2025 8:46 AM CDT) Anatomical Region Laterality Modality Other us Tre Herrera MD CV CARDIAC SERVICES PROCEDU RES Final Result * Cardiology Document Scan (04/06/2025) Anatomical Region Laterality Modality Other us Provider Scanning CV CARDIAC SERVICES PROCEDURES Final Result from Last 3 Months Insurance MEDICARE [employer] LIFE MEDICARE FOR LIFE MEDICARE FOR LIFE Care Teams Mobile Heavy Equipment Operator Relationship Specialty Start Date End Date Vinod López DO PCP - General Internal Medicine 11/11/19 Flash Law Jr., MD Medical Oncologist/Platform Loader Medical Oncology 12/14/19
--- OUTSIDE RECORDS SUMMARY | 2025-05-29 11:39 | XMS_ITS | Encounter Summary ---
Author Organization [facility] Address [address] [place] [address] Care Team Providers Care Circus Roustabout Name Role Phone Akil Chan MD Primary Care Provider [phone] Tyler Brady MD Unavailable [phone] Vinod López DO Primary Care Provider [phone] Encounter Details Date Type Department Care Team (Late st Contact Info) Description 02/24/2019 Allclasses Message Enc [facility] at [facility], [facility] [address] [place] [address] Tyler Brady MD [facility]. [facility] [address] [place] [address] Other Social History Tobacco Use [...] Sex Assigned at Female 11/05/2018 3:21 PM HEALTHCARE ADVISORY SERVICES MANAGER Legal Sex Female 6:14 PM CDT Gender Identity Female 11/05/2018 3:21 PM HEALTHCARE ADVISORY SERVICES MANAGER Sexual Orientation Not on file Occupation Industry Job Start Date Job End Date Not on file Not on file Not on file Not on file documented as of this encounter Plan of Treatment Not on file documented as of this encounter Visit Diagnoses Not on filedocumented in this encounter Care Teams Circus Roustabout Relationship Specialty Start Date End Date Akil Chan MD PCP - General INTERNAL MEDICINE 09/01/18 03/15/19 Vinod López DO [address] [facility] [address] [place] [address] PCP - General INTERNAL MEDICINE 03/16/19 Tyler Brady MD [facility] [address] [place] [address] [place] [facility] Manager CARDIOVASCULAR DISEASE 09/01/18 documented as of this encounter
--- OUTSIDE RECORDS SUMMARY | 2025-05-29 11:39 | XMS_ITS | Encounter Summary ---
Author Organization [facility] Address [address] [place] [address] Care Team Providers Care Operational Trainer Name Role Phone Akil Chan MD Primary Care Provider [phone] Tyler Brady MD Unavailable [phone] Vinod López DO Primary Care Provider [phone] Encounter Details Date Type Department Care Team (Late st Contact Info) Description 12/01/2018 Dime Message Enc [facility] at [facility], [facility] [address] [place] [address] Tyler Brady MD [facility]. [facility] [address] [place], [place] [id number] Test Results Social History Tobacco Use Types [...] Sex Assigned at Female 11/05/2018 3:21 PM CAR ICER Legal Sex Female 6:14 PM CDT Gender Identity Female 11/05/2018 3:21 PM CAR ICER Sexual Orientation Not on file Occupation Industry Job Start Date Job End Date Not on file Not on file Not on file Not on file documented as of this encounter Progress Notes * Jimena Chapman RN - 12/01/2018 10:49 AM CST See patient record request - thank you. ICER documented in this encounter Plan of Treatment Not on file documented as of this encounter Visit Diagnoses Not on filedocumented in this encounter Care Teams Operational Trainer Relationship Specialty Start Date End Date Akil Chan MD PCP - General INTERNAL MEDICINE 09/01/18 03/15/19 Vinod López DO [address] [place], [place] [address] [id number] PCP - General INTERNAL MEDICINE 03/16/19 Tyler Brady MD [facility] [address] [place] [address] Bond Medical Doctor Md/Medical Director CARDIOVASCULAR DISEASE 09/01/18 documented as of this encounter
--- OUTSIDE RECORDS SUMMARY | 2025-05-29 11:39 | XMS_ITS | Clinical Summary ---
Author Organization [facility] Address [address] [place] [address] Care Team Providers Care Shift Production Associate Name Role Phone Vinod López Primary Care Provider [phone] Source Comments [facility],non-owned Affiliates and Associated Physician Practices is amultiple site organization consisting of ambulatory clinics and hospital sitesin [place], [place], [place] and [place]. This disclosure is being madepursuant to the Care Everywhere program and may not contain all information available regarding this patient. Last updated 18.[facility] Allergies Active Allergy Reactions Criticality Noted Date [...] on file Legal Sex Female 8:43 PM DIRECTOR DIABETES Gender Identity Not on file Sexual Orientation Not on file Last Filed Vital Signs Vital Sign Reading Time Taken Comments Blood Pressure 136/82 11/07/2020 10:57 AM DIRECTOR DIABETES Pulse 70 11/07/2020 10:57 AM DIRECTOR DIABETES Temperature - - Respiratory Rate 12 11/07/2020 10:5 7 AM DIRECTOR DIABETES Oxygen Saturation - - Inhaled Oxygen Concentration - - Weight 124.4 kg (274 lb 3.2 oz) 021 10:57 AM DIRECTOR DIABETES Height 160 cm (5' 3) 11/07/2020 10:57 AM DIRECTOR DIABETES Body Mass Index 48.57 11/07/2020 10:57 AM DIRECTOR DIABETES Plan of Treatment Health Maintenance Due Date [...] to complete this topic Insurance MEDICARE [facility] MEDICARE SELF PAY NO INSURANCE Member Subscriber Plan / Payer (Ef fective for All Dates) Name:Alessandra Sam Member ID:Not on file Relation to Subscriber:Not on file Name:ALESSANDRA SAM Subscriber ID:Not on file (Home) Address: [address] [place] [id number] Payer ID:Not on file Group ID:Not on file Type:Self Pay Address: [place], [place] Care Teams Shift Production Associate Relationship Specialty Start Date End Date Vinod López DO [address] [place], [place] [id number] PCP - General Internal Medicine 04/03/19
--- OUTSIDE RECORDS SUMMARY | 2025-05-29 11:39 | XMS_ITS | Encounter Summary ---
Author Organization [facility] Address [address] [place] [address] Care Team Providers Care Family Mediator Name Role Phone Akil Chan MD Primary Care Provider [phone] Tyler Brady MD Unavailable [phone] Vinod López DO Primary Care Provider [phone] Encounter Details Date Type Department Care Team (Late st Contact Info) Description 10/22/2018 IMN Message Enc [facility] at [facility], [facility] [address] [place] [address] Tyler Brady MD [facility]. [facility] [address] [place] [address] Follow Up/Update Social History Tobacco [...] Sex Assigned at Female 11/05/2018 3:21 PM BILINGUAL PATIENT SUPPORT CASEWORKER Legal Sex Female 6:14 PM CDT Gender Identity Female 11/05/2018 3:21 PM BILINGUAL PATIENT SUPPORT CASEWORKER Sexual Orientation Not on file Occupation Industry [...] the patient. Message sent to Dr. Brady. NGUAL PATIENT SUPPORT CASEWORKER documented in this encounter Plan of Treatment Not on file documented as of this encounter Visit Diagnoses Not on filedocumented in this encounter Care Teams Family Mediator Relationship Specialty Start Date End Date Akil Chan MD PCP - General INTERNAL MEDICINE 09/01/18 03/15/19 Vinod López DO [address] [facility] [address] [place], [place] [id number] PCP - General INTERNAL MEDICINE 03/16/19 Tyler Brady MD [facility]. [place] [address] [place] [address] [place] Exercise Manager CARDIOVASCULAR DISEASE 09/01/18 documented as of this encounter
--- OUTSIDE RECORDS SUMMARY | 2025-05-29 11:39 | XMS_ITS | Encounter Summary ---
Author Organization [facility] Address [address] [place] [address] Care Team Providers Care Truss Maker Name Role Phone Akil Chan MD Primary Care Provider [phone] Tyler Brady MD Unavailable [phone] Vinod López DO Primary Care Provider [phone] Encounter Details Date Type Department Care Team (Late st Contact Info) Description 09/08/2018 Fusion Garage Message Enc [facility] at [facility], [facility] [address] [place] [address] Tyler Brady MD [facility]. [facility] [address] [place], [place] [id number] Follow Up/Update Social History Tobacco Use Types [...] Sex Assigned at Female 11/05/2018 3:21 PM PLATE MOUNTER Legal Sex Female 6:14 PM CDT Gender Identity Female 11/05/2018 3:21 PM PLATE MOUNTER Sexual Orientation Not on file documented as of this encounter Plan of Treatment Not on file documented as of this encounter Visit Diagnoses Not on filedocumented in this encounter Care Teams Truss Maker Relationship Specialty Start Date End Date Akil Chan MD PCP - General INTERNAL MEDICINE 09/01/18 03/15/19 Vinod López DO [address] [place] [address] [address] [place], [place] [id number] PCP - General INTERNAL MEDICINE 03/16/19 Tyler Brady MD [facility] [address] [place] [address] [place] Melter Loader CARDIOVASCULAR DISEASE 09/01/18 documented as of this encounter
--- OUTSIDE RECORDS SUMMARY | 2025-05-29 11:39 | XMS_ITS | Encounter Summary ---
Author Organization [facility] Address [address] [place] [address] Care Team Providers Care Hydrogen Operator Name Role Phone Vinod López DO Primary Care Provider [phone] Thanh Alexandre MD, Flash Unavailable [phone] Encounter Details Date Type Department Care Team (Late st Contact Info) Description 04/06/2025 Orders Only [facility] Health Information Management [address] [place] [address] Scanning, Provider Social History Tobacco Use Types Packs/Day Years Used Date Smoking Tobacco: Never Smokeless Tobacco: Never Alcohol Use Standard Drinks/Week Comments Yes 0 (1 standard drink = 0.6 oz pure alcohol) Very rarely - wine holiday meal Comments Unknown Sex and Gender Information Value Date Recorded Sex Assigned at Not on file Legal Sex Female 3:20 AM PHOSPHORIC ACID OPERATOR Gender Identity Female 11/18/2019 4:40 AM PHOSPHORIC ACID OPERATOR Sexual Orientation Straight 11/18/2019 4: 40 AM PHOSPHORIC ACID OPERATOR documented as of this encounter Plan of Treatment Not on file documented as of this encounter Procedures Procedure Name Priority Date/Time Associated Diagnosis Comments CARDIOLOGY DOCUMENT SCAN 04/06/2025 documented in this encounter Results * Cardiology Document Scan (04/06/2025) Anatomical Region Laterality Modality Other us Provider Scanning CV CARDIAC SERVICES PROCEDURES Final Result documented in this encounter Visit Diagnoses Not on filedocumented in this encounter Care Teams Hydrogen Operator Relationship Specialty Start Date End Date Vinod López DO PCP - General Internal Medicine 11/11/19 Flash Law Jr., MD Medical Oncologist/Copra Processor Medical Oncology 12/14/19 documented as of this encounter
--- OUTSIDE RECORDS SUMMARY | 2025-05-29 11:39 | XMS_ITS | Encounter Summary ---
Author Organization [facility] Address [address] [place] [address] Care Team Providers Care Plaster Molder Name Role Phone Akil Chan MD Primary Care Provider [phone] Tyler Brady MD Unavailable [phone] Vinod López DO Primary Care Provider [phone] Encounter Details Date Type Department Care Team (Late st Contact Info) Description 10/13/2018 [employer] Message [facility] at [facility], [facility] [address] [place] [address] Tyler Brady MD [facility]. [facility] [address] [place], [place] [id number] Medication Questions Social History Tobacco Use Types [...] Sex Assigned at Female 11/05/2018 3:21 PM ANIMAL IMPERSONATOR Legal Sex Female 6:14 PM CDT Gender Identity Female 11/05/2018 3:21 PM ANIMAL IMPERSONATOR Sexual Orientation Not on file Occupation Industry Job Start Date Job End Date Not on file Not on file Not on file Not on file documented as of this encounter Plan of Treatment Not on file documented as of this encounter Visit Diagnoses Not on filedocumented in this encounter Care Teams Plaster Molder Relationship Specialty Start Date End Date Akil Chan MD PCP - General INTERNAL MEDICINE 09/01/18 03/15/19 Vinod López DO [address] [facility] [address] [place] [address] PCP - General INTERNAL MEDICINE 03/16/19 Tyler Brady MD [facility] [address] [place] [address] Tell Ham Smoker CARDIOVASCULAR DISEASE 09/01/18 documented as of this encounter
--- OUTSIDE RECORDS SUMMARY | 2025-05-29 11:39 | XMS_ITS | Encounter Summary ---
Author Organization [facility] Address [address] [place] [address] Care Team Providers Care Driver Supervisor Name Role Phone Akil Chan MD Primary Care Provider [phone] Tyler Brady MD Unavailable [phone] Vinod López DO Primary Care Provider [phone] Encounter Details Date Type Department Care Team (Late st Contact Info) Description 03/10/2019 [employer] Message Enc [facility] at [facility], [facility] [address] [place] [address] Tyler Brady MD [facility]. [facility] [address] [place], [place] [phone] Medication Questions Social History Tobacco Use Types [...] Sex Assigned at Female 11/05/2018 3:21 PM FINANCIAL SERVICE REP Legal Sex Female 6:14 PM CDT Gender Identity Female 11/05/2018 3:21 PM FINANCIAL SERVICE REP Sexual Orientation Not on file Occupation Industry Job Start Date Job End Date Not on file Not on file Not on file Not on file documented as of this encounter Plan of Treatment Not on file documented as of this encounter Visit Diagnoses Not on filedocumented in this encounter Care Teams Driver Supervisor Relationship Specialty Start Date End Date Akil Chan MD PCP - General INTERNAL MEDICINE 09/01/18 03/15/19 Vinod López DO [address] [facility] [address] [place] [address] PCP - General INTERNAL MEDICINE 03/16/19 Tyler Brady MD [facility] [address] [place] [address] [place] Umbrella Supervisor CARDIOVASCULAR DISEASE 09/01/18 documented as of this encounter
--- OUTSIDE RECORDS SUMMARY | 2025-05-29 11:39 | XMS_ITS | Encounter Summary ---
Author Organization [facility] Address [address] [facility] [address] [place] [address] Care Team Providers Care Track Moving Machine Operator Name Role Phone Akil Chan MD Primary Care Provider [phone] Vinod López DO Primary Care Provider [phone] Thanh Alexandre MD, Flash Unavailable [phone] Encounter Details Date Type Department Care Team (Late st Contact Info) Description 02/12/2017 Orders Only [facility] ProviderLisa MD [address] [place] [address] Social History Tobacco Use Types Packs/Day Years Used Date Smoking Tobacco: Never Alcohol Use Standard Drinks/Week Comments Yes 0 (1 standard drink = 0.6 oz pur e alcohol) Comments Unknown Sex and Gender Information Value Date Recorded Sex Assigned at Not on file Legal Sex Female 3:20 AM MARKER SHIPMENTS Gender Identity Female 11/18/2019 4:40 AM MARKER SHIPMENTS Sexual Orientation Straight 11/18/2019 4: 40 AM MARKER SHIPMENTS documented as of this encounter Plan of [...] on filedocumented in this encounter Care Teams Track Moving Machine Operator Relationship Specialty Start Date End Date Akil Chan MD [address] [place] [address] PCP - General 02/05/17 11/10/19 Vinod López DO [address] [place] [address] PCP - General Internal Medicine 11/11/19 Flash Law Jr., MD [address] [place] [address] Medical Oncologist/Accounts Receivable Supervisor Medical Oncology 12/14/19 documented as of this encounter
--- OUTSIDE RECORDS SUMMARY | 2025-05-29 11:39 | XMS_ITS | Clinical Summary ---
Author Organization [facility] Address [address] [place] [address] Care Team Providers Care Member Of Parliament Name Role Phone Maribel Vinod DOUGLASS Primary Care Provider [phone] Thanh Alexandre MD, Flash Unavailable [phone] Allergies Active Allergy Reactions Criticality Noted Date [...] day 0 0 02/17/20 15 025 Discontinued multivit-rules examiner no-sjak-aywgrb (CENTRUM SILVER ULTRA WOMEN'S) tablet 0 0 [...] mouth 4 (four) times a day. 08/06/20 18 025 Discontinued flecainide (TAMBOCOR) 50 mg tablet Take 1 tablet (50 mg total) by mouth 2 (two) times a day. 180 tablet 3 08/06/20 18 025 Discontinued( erapy completed) omega-3 fatty acids 1,000 mg capsule Take 1,000 mg by mouth daily. 0 08/06/20 18 025 Discontinued vit C,D-Au-dkqsx-l utein-zeaxan 108-270-11-1 zr-xkwq-ey-mg capsule Take 1 capsule by mouth 2 (two) times a day. 08/06/20 18 025 Discontinued eye lubricant combination no.1 (FRESHKOTE) 2-0.9-1.8 % drops Administer 0.05 mL (1 drop total) into affected eye(s) nightly. 0 08/06/20 18 025 Discontinued famotidine (PEPCID) 20 mg tablet Take 1 tablet (20 mg total) by mouth 2 (two) times a day. 60 tablet 11 08/06/20 18 025 Discontinued furosemide (LASIX) 20 mg tablet [...] of carbohydrate transport and metabolis m 11/18/2010 Encounters Date Type Department Care Team Description 05/27/2025 Results Follow-Up [facility] at [address] [address] Vijaya Buchanan NP Urine culture Urine, bladder 05/25/2025 8:05 PM CDT - 05/25/2025 11:59 PM CDT Hospital Encounter [address] [address] Acute cystitis with hematuria Discharge Disposition: Discharge to home or self care 05/25/2025 4:15 PM CDT Office Visit [facility] at [address] [address] Eloina Sullivan PA Acute cystitis with hematuria (Primary Dx) 05/13/2025 Orders Only [facility] Cardiology [address] [place] [address] Tre Herrera MD 04/06/2025 Orders Only [facility] Health Information Management [address] [place] [address] Scanning, Provider from Last 3 Months Immunizations Immunization Administration [...] Mother Katharina Lopez Lung cancer Mother Katharina E. John Cancer, lung; Cause of : Cancer, lung Arthritis Mother's Sister Nikole Rodriguez Heart disease Other 1 Family history of Heart problems; Cancer Other 2 Family history of Cancer, unknown; Lung disease Other 3 Family history of Lung problems; Arthritis Other 4 Family history of Arthritis; Hypertension Other 5 Family history of Hypertension; Arthritis Sister 1 Keshia Hamlin Heart disease Sister 1 Keshia Hamlin Arthritis Sister 2 Bell Humphrey Cancer Sister 3 Corinne John Anemia Son Bill Osorio Relation Name Status Comments Brother Robin Daughter 1 Mariangel Osorio Daughter 2 Jimena Osorio Father Wilbert Lopez (Age 71) Mother Katharina Lopez (Age 63) Mother's Sister Nikole Rodriguez Other 1 Other 2 Other 3 Other 4 Other 5 Sister 1 Keshia Hamlin Sister 2 Bell Humphrey Sister 3 Corinne John Son Bill Osorio Social History Tobacco Use Types Packs/Day Years Used Date Smoking Tobacco: Never Smokeless Tobacco: Never Alcohol Use Standard Drinks/Week Comments Yes 0 (1 standard drink = 0.6 oz pure alcohol) Very rarely - wine holiday meal Comments Unknown Sex and Gender Information Value Date Recorded Sex Assigned at Not on file Legal Sex Female 3:20 AM MANAGER PRIVATE Gender Identity Female 11/18/2019 4:40 AM MANAGER PRIVATE Sexual Orientation Straight 11/18/2019 4: 40 AM MANAGER PRIVATE Obstetrics History Last Filed Vital Signs Vital Sign Reading Time Taken Comments Blood Pressure 104/72 05/25/2025 4:19 PM CDT Pulse 122 05/25/2025 4:19 PM CDT Temperature 36.5 C (97.7 F) 05/25/2025 4:19 PM CDT Respiratory Rate 20 05/25/2025 4:19 PM CDT Oxygen Saturation 97% 05/25/2025 4:19 PM CDT Inhaled Oxygen Concentration - - Weight 124 kg (273 lb 6.4 oz) 01/06/2020 2:08 PM MANAGER PRIVATE Height 161.3 cm (5' 3.5) 01/06/2020 2:08 PM MANAGER PRIVATE Body Mass Index 47.66 01/06/2020 2:08 PM MANAGER PRIVATE Plan of Treatment Health Maintenance Due Date Last Done Comments Albumin Creatinine Ratio, Urine 1945 Depression Screening 1945 Fall Risk Assessment 1945 Hemoglobin A1C 1945 Hepatitis C Screening 1945 Osteoporosis Screening-Bone Density Scan 1945 eGFR 1945 Dilated Eye Exam 1945 Foot Exam 1945 Lipid Panel 1945 DTaP/Tdap/Td Vaccine (1 - Tdap) 1956 Hepatitis B Screening 1963 Pneumococcal vaccine 65+ (1 of 2 - PCV) 1964 08/01/2005 Zoster Vaccine (1 of 2) 1995 [...] Negative Ketones, ur, POC Negative Negative Specific [place], POC 1.015 1.003 - 1.030 Blood, ur, [...] current clinical standards) Comment:Testing performed by : [facility], [address] [place]., [address] Organism (CLINICALLY INSIGNIFICANT GROWTH MIGUEL Urine, bladder 05/25/2025 3: 00 PM CDT 05/25/2025 9:53 PM CDT Narrative MIGUEL - 05/27/2025 3:27 AM CDT Testing performed by [facility] Microbiology Laboratory ([phone]) us [facility] MICROBIOLOGY - GENER AL ORDERABLES Final Result MIGUEL [id number] [address] [place] [place] [address] * Cardiology Document Scan (05/08/2025 8:46 AM CDT) Anatomical Region Laterality Modality Other us Tre Herrera MD CV CARDIAC SERVICES PROCEDU RES Final Result * Cardiology Document Scan (04/06/2025) Anatomical Region Laterality Modality Other us Provider Scanning CV CARDIAC SERVICES PROCEDURES Final Result from Last 3 Months Insurance MEDICARE FOR LIFE * Guarantor: Nikole Osorio Myke Account Type Relation to Patient Date of Phone Billing Address Personal/Family Self 1945 [address] [place] [address] MEDICARE FOR LIFE Member Subscriber Plan / Payer ( fective 2018-Present) Name:Nikole Osorio Relation to Subscriber:Self Name:Nikole Osorio Payer ID:[id number] (NAIC) Group ID:Not on file Type: Address: [place] [phone] * Guarantor: Nikole Osorio Myke Account Type Relation to Patient Date of Phone Billing Address Personal/Family Self 1945 [address] [place] [address] MEDICARE FOR LIFE Care Teams Member Of Parliament Relationship Specialty Start Date End Date Vinod López DO PCP - General Internal Medicine 11/11/19 Flash Law Jr., MD Medical Oncologist/Partition Assembly Machine Operator Medical Oncology 12/14/19
--- OUTSIDE RECORDS SUMMARY | 2025-05-29 11:39 | XMS_ITS | Encounter Summary ---
Author Organization [facility] Address [address] [place] [address] Care Team Providers Care Nitro Man Name Role Phone Akil Chan MD Primary Care Provider Tyler Brady MD Unavailable [phone] Vinod López DO Primary Care Provider [phone] Encounter Details Date Type Department Care Team (Late st Contact Info) Description 02/02/2019 Jogli Message Enc [facility] at [facility], [facility] [address] [place] [address] Tyler Brady MD [facility]. [facility] [address] [place] [address] Follow Up/Update Social History Tobacco [...] Sex Assigned at Female 11/05/2018 3:21 PM STATE COMPTROLLER Legal Sex Female 6:14 PM CDT Gender Identity Female 11/05/2018 3:21 PM STATE COMPTROLLER Sexual Orientation Not on file Occupation Industry [...] fibrillation documented in this encounter Care Teams Nitro Man Relationship Specialty Start Date End Date Akil Chan MD PCP - General INTERNAL MEDICINE 09/01/18 03/15/19 Vinod López DO [address] [place] [address] [address] [place], [place] [id number] PCP - General INTERNAL MEDICINE 03/16/19 Tyler Brady MD [facility] [address] [place] [address] [place] Instrumental Teacher CARDIOVASCULAR DISEASE 09/01/18 documented as of this encounter
--- OUTSIDE RECORDS SUMMARY | 2025-05-29 11:39 | XMS_ITS | Encounter Summary ---
Author Organization [facility] Address [facility] [place] [address] Care Team Providers Care Can Maker Name Role Phone Tyler Brady MD Unavailable [phone] Vinod López DO Primary Care Provider [phone] Encounter Details Date Type Department Care Team (Late st Contact Info) Description 03/27/2019 Shake Message [facility] at [facility], [facility] [address] [place] [address] [facility]. [facility] [address] [place], [place] [id number] Other Social History Tobacco Use Types Packs/Day [...] Sex Assigned at Female 11/05/2018 3:21 PM LEATHER SPLITTER Legal Sex Female 6:14 PM CDT Gender Identity Female 11/05/2018 3:21 PM LEATHER SPLITTER Sexual Orientation Not on file Occupation Industry [...] on filedocumented in this encounter Care Teams Can Maker Relationship Specialty Start Date End Date Vinod López DO [address] [facility] [address] [place] [address] PCP - General INTERNAL MEDICINE 03/16/19 Tyler Brady MD [facility] [address] [place] [address] [place] Director Process Improvement CARDIOVASCULAR DISEASE 09/01/18 documented as of this encounter
--- OUTSIDE RECORDS SUMMARY | 2025-05-29 11:39 | XMS_ITS | Encounter Summary ---
Author Organization [facility] Address [address] [place] [address] Care Team Providers Care Monogram Machine Operator Name Role Phone Akil Chan MD Primary Care Provider [phone] Tyler Brady MD Unavailable [phone] Vinod López DO Primary Care Provider [phone] Encounter Details Date Type Department Care Team (Late st Contact Info) Description 02/20/2019 [employer]ovacs Message [facility] at [facility], [facility] [address] [place] [address] Tyler Brady MD [facility]. [facility] [address] [place] [address] Other Social History Tobacco Use [...] Sex Assigned at Female 11/05/2018 3:21 PM DUMP TRUCK OPERATOR Legal Sex Female 6:14 PM CDT Gender Identity Female 11/05/2018 3:21 PM DUMP TRUCK OPERATOR Sexual Orientation Not on file Occupation Industry Job Start Date Job End Date Not on file Not on file Not on file Not on file documented as of this encounter Progress Notes * Margarita Mittal RN - 02/20/2019 10:13 AM CDT Phoned pt, as requested, 6 silicone strips mailed [facility] Thank you, LP * Jimena Chapman RN - 02/20/2019 9:10 AM CDT See note. documented in this encounter Plan of Treatment Not on file documented as of this encounter Visit Diagnoses Not on filedocumented in this encounter Care Teams Monogram Machine Operator Relationship Specialty Start Date End Date Akil Chan MD PCP - General INTERNAL MEDICINE 09/01/18 03/15/19 Vinod López DO [address] [place] [address] PCP - General INTERNAL MEDICINE 03/16/19 Tyler Brady MD [facility]. [facility] [address] [place] [address] [employer] Sole Layer CARDIOVASCULAR DISEASE 09/01/18 documented as of this encounter
--- OUTSIDE RECORDS SUMMARY | 2025-05-29 11:39 | XMS_ITS | Encounter Summary ---
Author Organization [facility] Address [address] [place] [address] Care Team Providers Care Palliative Care Nurse Practitioner Name Role Phone Akil Chan MD Primary Care Provider [phone] Tyler Brady MD Unavailable [phone] Vinod López DO Primary Care Provider [phone] Encounter Details Date Type Department Care Team (Late st Contact Info) Description 02/16/2019 [employer] Message Enc [place] [facility] at [facility], [facility] [address] [place] [address] Tyler Brady MD 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 Legal Sex Female 6:14 PM CDT Gender Identity Female 11/05/2018 3:21 PM SPRING SETTER Sexual Orientation Not on file Occupation Industry Job Start Date Job End Date Not on file Not on file Not on file Not on file documented as of this encounter Plan of Treatment Not on file documented as of this encounter Visit Diagnoses Not on filedocumented in this encounter Care Teams Palliative Care Nurse Practitioner Relationship Specialty Start Date End Date Akil Chan MD PCP - General INTERNAL MEDICINE 09/01/18 03/15/19 Vinod López DO [facility] [address] [place] [address] PCP - General INTERNAL MEDICINE 03/16/19 Tyler Brady MD [facility] [address] [place] [address] [place] Sql Server Developer CARDIOVASCULAR DISEASE 09/01/18 documented as of this encounter
--- OUTSIDE RECORDS SUMMARY | 2025-05-29 11:39 | XMS_ITS | Encounter Summary ---
Author Organization [facility] Address [address] [place] [address] Care Team Providers Care Hog Feeder Name Role Phone Akil Chan MD Primary Care Provider [phone] Tyler Brady MD Unavailable [phone] Vinod López DO Primary Care Provider [phone] Encounter Details Date Type Department Care Team (Late st Contact Info) Description 10/13/2018 [employer] Message [facility] at [facility], [facility] [address] [place] [address] Tyler Brady MD [facility]. 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 Legal Sex Female 6:14 PM CDT Gender Identity Female 11/05/2018 3:21 PM DRY CELL AND BATTERY ASSEMBLER Sexual Orientation Not on file Occupation Industry Job Start Date Job End Date Not on file Not on file Not on file Not on file documented as of this encounter Plan of Treatment Not on file documented as of this encounter Visit Diagnoses Not on filedocumented in this encounter Care Teams Hog Feeder Relationship Specialty Start Date End Date Akil Chan MD PCP - General INTERNAL MEDICINE 09/01/18 03/15/19 Vinod López DO [address] [employer] [facility] [address] [place] [address] PCP - General INTERNAL MEDICINE 03/16/19 Tyler Brady MD [facility] [address] [place] [address] [place] Student Affairs Dean CARDIOVASCULAR DISEASE 09/01/18 documented as of this encounter
--- OUTSIDE RECORDS SUMMARY | 2025-05-29 11:40 | XMS_ITS | Encounter Summary ---
Author Organization [facility] Address [address] [place] [address] Care Team Providers Care Rail Transportation Operator Name Role Phone Tyler Brady MD Unavailable [phone] Vinod López DO Primary Care Provider [phone] Encounter Details Date Type Department Care Team (Late st Contact Info) Description 03/23/2019 [employer] Message [facility] at [facility], [facility] [address] [place] [address] Tyler Brady MD [facility]. 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
--- OUTSIDE RECORDS SUMMARY | 2025-05-29 11:40 | XMS_ITS | Encounter Summary ---
Author Organization [facility] Address [address] [place] [address] Care Team Providers Care Neighborhood Aide Name Role Phone Akil Chan MD Primary Care Provider [phone] Tyler Brady MD Unavailable [phone] Vinod López DO Primary Care Provider [phone] Encounter Details Date Type Department Care Team (Late st Contact Info) Description 09/03/2018 [employer] Message Enc [facility] at [facility], [facility] [address] [place] [address] [facility]. [facility] [address] [place], [place] [phone] Follow Up/Update Social History Tobacco Use Types [...] Sex Assigned at Female 11/05/2018 3:21 PM EMS EDUCATOR Legal Sex Female 6:14 PM CDT Gender Identity Female 11/05/2018 3:21 PM EMS EDUCATOR Sexual Orientation Not on file documented as of this encounter Plan of Treatment Not on file documented as of this encounter Visit Diagnoses Not on filedocumented in this encounter Care Teams Neighborhood Aide Relationship Specialty Start Date End Date Akil Chan MD PCP - General INTERNAL MEDICINE 09/01/18 03/15/19 Vinod López DO [address] [place] [address] [address] [place], [place] [id number] PCP - General INTERNAL MEDICINE 03/16/19 Tyler Brady MD [facility] [address] [place] [address] [employer] Production Worker CARDIOVASCULAR DISEASE 09/01/18 documented as of this encounter
--- OUTSIDE RECORDS SUMMARY | 2025-05-29 11:40 | XMS_ITS | Encounter Summary ---
Author Organization [facility] Address [address] [place] [address] Care Team Providers Care Blooming Mill Supervisor Name Role Phone Tyler Brady MD Unavailable [phone] Vinod López DO Primary Care Provider Encounter Details Date Type Department Care Team (Late st Contact Info) Description 03/19/2019 [employer] Message [facility] at [facility], [facility] [address] [place] [address] Tyler Brady MD [facility]. [facility] [address] [place], [place] [id number] Follow Up/Update Social History Tobacco Use Types [...] Sex Assigned at Female 11/05/2018 3:21 PM WASTE BALER Legal Sex Female 6:14 PM CDT Gender Identity Female 11/05/2018 3:21 PM WASTE BALER Sexual Orientation Not on file Occupation Industry [...] on filedocumented in this encounter Care Teams [place]ing Mill Supervisor Relationship Specialty Start Date End Date Vinod López DO 2089 [facility] [address] [place] [address] PCP - General INTERNAL MEDICINE 03/16/19 Tyler Brady MD [facility] [address] [place] [address] [place] Director Behavioral Health CARDIOVASCULAR DISEASE 09/01/18 documented as of this encounter
--- OUTSIDE RECORDS SUMMARY | 2025-05-29 11:40 | XMS_ITS | Encounter Summary ---
Author Organization [facility] Address [address] [place] [address] Care Team Providers Care Continuum Of Care Manager Name Role Phone Tyler Brady MD Unavailable [phone] Vinod López DO Primary Care Provider [phone] Encounter Details Date Type Department Care Team (Late st Contact Info) Description 03/16/2019 [employer] Message [facility] at [facility], [facility] [address] [place] [address] Tyler Brady MD [facility]. [facility] [address] [place], [place] [id number] Follow Up/Update Social History Tobacco Use Types [...] Sex Assigned at Female 11/05/2018 3:21 PM ADDICTION PSYCHIATRIST Legal Sex Female 6:14 PM CDT Gender Identity Female 11/05/2018 3:21 PM ADDICTION PSYCHIATRIST Sexual Orientation Not on file Occupation Industry [...] on filedocumented in this encounter Care Teams Continuum Of Care Manager Relationship Specialty Start Date End Date Vinod López DO 0 [employer] [facility] [address] [place] [address] PCP - General INTERNAL MEDICINE 03/16/19 Tyler Brady MD [facility] [address] [place] [address] [place] Ingot Caster CARDIOVASCULAR DISEASE 09/01/18 documented as of this encounter
--- OUTSIDE RECORDS SUMMARY | 2025-05-29 11:40 | XMS_ITS | Encounter Summary ---
Author Organization [facility] Address [address] [place] [address] Care Team Providers Care Pattern Checker Name Role Phone Tyler Brady MD Unavailable [phone] Vinod López DO Primary Care Provider [phone] Encounter Details Date Type Department Care Team (Late st Contact Info) Description 03/23/2019 [employer] Message [employer] [facility] at [facility], [facility] [address] [place] [address] Tyler Brady MD [facility]. [facility] [address] [place], [place] [phone] Medication Questions Social History Tobacco Use Types [...] Sex Assigned at Female 11/05/2018 3:21 PM ACCOUNTS MANAGER Legal Sex Female 6:14 PM CDT Gender Identity Female 11/05/2018 3:21 PM ACCOUNTS MANAGER Sexual Orientation Not on file Occupation [...] on filedocumented in this encounter Care Teams Pattern Checker Relationship Specialty Start Date End Date Vinod López DO 2089 [facility] [address] [place] [address] PCP - General INTERNAL MEDICINE 03/16/19 Tyler Brady MD [facility] [address] [place] [address] [place] Plumbing Manager CARDIOVASCULAR DISEASE 09/01/18 documented as of this encounter
[2025-05-29 11:49] LABS: Hematocrit 38.9 % (37.0-47.0); Hemoglobin 11.6 g/dL (12.0-15.0); Immature Granulocyte Percent A 0.5 % (0-0.5); Lymphocytes Absolute Auto 1.10 K/mm3 (0.9-3.2); Mean Corpuscular HGB Conc 29.8 g/dl (32-36); Mean Corpuscular Hemoglobin 24.6 pg (26-34); Mean Corpuscular Volume 82.4 fl (80-100); Nucleated Red Blood Cells Absolute Auto 0.000 K/mm3 (0.0-0.012); Nucleated Red Blood Cells Perc 0.0 % (0.0-0.2); Platelet Count Result 232 k/mm3 (150-375); Red Blood Count 4.72 M/mm3 (4.2-5.4); White Blood Count 12.2 K/mm3 (4.5-10.0)
--- NOTE | 2025-05-29 11:51 | ED_ITS ---
HPI - General Adult General Chief complaint: Chest Pain Stated complaint: chest pain Time Seen by Provider: 05/29/25 11:33 History of Present Illness HPI narrative: 79-year-old female presenting to the emergency department for shortness of breath and left-sided chest pain. Patient was started on amiodarone recently for AFib. Patient was told by her credit clerk that she has approximately 6 months to live. Patient began having worsening left-sided chest pain today. Patient reports the pain is worse with deep inspiration. Upon arrival emergency department patient was hypoxic down to 84% on room air. Patient is saturating well on 2 L by nasal cannula. Patient does have history of atrial fibrillation, heart failure, high cholesterol, type 2 diabetes Related Data Home Medications ?Medication ?Instructions ?Recorded ?Confirmed ?Last Taken ?Type metoprolol tartrate 50 mg tablet 50 mg PO Q12H PRN elevated HR 10/14/19 05/17/25 05/06/25 History rivaroxaban 20 mg tablet (Xarelto) 20 mg PO DAILY 10/14/19 05/17/25 05/06/25 History vitamins A,C,A-groh-hjeslx 4,296 1 cap PO BID 11/08/20 05/17/25 05/06/25 History mcg-226 mg-90 mg capsule (PreserVision AREDS) acetaminophen 650 mg 1,300 mg PO Q12H pain 05/05/22 05/17/25 04/04/25 History tablet,extended release ferrous sulfate 325 mg (65 mg 325 mg PO EVERY OTHER DAY 05/07/25 05/17/25 05/06/25 History iron) tablet (FeroSul) potassium chloride 20 mEq 20 meq PO BID 05/07/25 05/17/25 05/06/25 History tablet,extended release Allergies Allergy/AdvReac Type Severity Reaction Status Date / Time Sulfa (Sulfonamide Allergy Intermediate Rash Verified 05/29/25 11:38 Antibiotics) nitrofurantoin (From Allergy itching Verified 05/29/25 11:38 Macrobid) Review of Systems 2 Review of Systems: All systems reviewed & are unremarkable except as noted in HPI and below PMFSH Past Medical History Medical History Paroxysmal atrial fibrillation Chronic anemia Pulmonary hypertension Diastolic heart failure Echocardiogram June 2024: Difficult study with LVH, EF of 50 55%, grade 1 diastolic dysfunction and moderate left atrial enlargement with mild pulmonary hypertension Other hyperlipidemia Restless leg syndrome History of sarcoidosis Hx of arteriovenous malformation (AVM) Iron deficiency anemia CARLOS (obstructive sleep apnea) Intolerant to CPAP Post-menopausal Depression Colonoscopy planned Gastro-esophageal reflux Type 2 diabetes mellitus Hypothyroidism Essential hypertension Surgical History Surgical History Status post cataract extraction of both eyes with insertion of intraocular lens History of right shoulder replacement History of toe surgery History of arthroscopy of knee Family History Family History Mother Family history of lung cancer Family history of lung disease Father Family history of arthritis Family history of heart disease in male family member before age 55 Family history of cardiovascular disease Sibling Family history of malignant neoplasm of breast in first degree relative Carcinoma of colon Breast cancer Daughter Breast cancer Social History Social History (Updated 05/17/25 @ 15:04 by Chula Bui PA-C) Social History: Patient moved to [place] March 2025. She is a lifelong nonsmoker and denies any history of alcohol use. Her and her raised 1 son and 4 daughters. 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 HEAD: normocephalic, atraumatic. EYES: PERRLA/EOMI, conjunctivae clear. NOSE: Normal no drainage EARS:TMS clear with good light reflex. THROAT: Pharynx clear, no exudate. NECK: Supple. No adenopathy, no masses. RESPIRATORY: Airway patent, respirations nonlabored. Clear to auscultation bilaterally, no rales, rhonchi, wheezing. CARDIOVASCULAR: Regular rate and rhythm without murmurs rubs or gallops. ABDOMINAL: Soft, nontender, nondistended, normal bowel sounds MUSCULOSKELETAL: Moves all extremities. Strength/ROM intact, No edema, No calf tenderness. NEURO: Alert. Cranial nerves II through XII intact. Grossly intact SKIN: Warm, dry. Normal Color Course Vital Signs Vital signs: Vital Signs Temperature 98.4 F 05/29/25 11:29 Pulse Rate 85 05/29/25 11:29 Respiratory Rate 18 05/29/25 11:29 Blood Pressure 117/66 05/29/25 11:29 Pulse Oximetry 98 05/29/25 11:29 Oxygen Delivery Nasal Cannula 05/29/25 11:29 Oxygen Flow Rate 2 05/29/25 11:29 Temperature 98.4 F 05/29/25 11:29 Pulse Rate 83 05/29/25 17:00 Respiratory Rate 23 H 05/29/25 17:00 Blood Pressure 98/57 L 05/29/25 13:46 Pulse Oximetry 94 05/29/25 17:00 Oxygen Delivery Nasal Cannula 05/29/25 11:45 Oxygen Flow Rate 2 05/29/25 11:45 Medical Decision Making [facility] Narrative Medical decision making narrative: 79-year-old female present to the emergency department for evaluation for left- sided chest pain. Patient describes the chest pain as pleuritic. Patient is currently afebrile but does have a leukocytosis of 12.2 hemoglobin 11.6. Patient does have a potassium 2.8 this was replaced with 40 mEq p.o. potassium and 20 mEq IV potassium. Patient does have MARIELLA her CMP. ProBNP is 611. Patient had negative serial troponins. UA was significant for urinary tract infection. Urine culture was ordered and patient was started IV Rocephin the emergency department. Patient was negative for influenza RSV and for COVID. CTA was negative for pulmonary embolism but does show lymphadenopathy. Chest x- ray showed no focal infiltrate or effusion. Case was discussed with the hospitalist patient was accepted for admission for further cardiac rule out and treatment for her urinary tract infection. Differential Diagnosis Differential Diagnosis: COVID, RSV, influenza, ACS, pleuritic chest pain, pulmonary embolism, UTI Vital Signs Vital Signs: Vital Signs Temperature 98.4 F 05/29/25 11:29 Pulse Rate 85 05/29/25 11:29 Respiratory Rate 18 05/29/25 11:29 Blood Pressure 117/66 05/29/25 11:29 Pulse Oximetry 98 05/29/25 11:29 Oxygen Delivery Nasal Cannula 05/29/25 11:29 Oxygen Flow Rate 2 05/29/25 11:29 Temperature 98.4 F 05/29/25 11:29 Pulse Rate 83 05/29/25 17:00 Respiratory Rate 23 H 05/29/25 17:00 Blood Pressure 98/57 L 05/29/25 13:46 Pulse Oximetry 94 05/29/25 17:00 Oxygen Delivery Nasal Cannula 05/29/25 11:45 Oxygen Flow Rate 2 05/29/25 11:45 Lab Data Lab results reviewed: Yes I reviewed the patient's lab results. 05/29/25 11:43 05/29/25 11:43 Labs: Lab Results 05/29/25 05/29/25 05/29/25 Range/Units 11:43 11:47 12:35 WBC 12.2 H (4.5-10.0) K/mm3 RBC 4.72 (4.2-5.4) M/mm3 Hgb 11.6 L D (12.0-15.0) g/dL Hct 38.9 (37.0-47.0) % MCV 82.4 (80-100) fl MCH 24.6 L (26-34) pg MCHC 29.8 L (32-36) g/dl RDW 21.6 H (11.5-14.5) % Plt Count 232 (150-375) k/mm3 MPV 9.2 (7.4-10.4) fl Immature Gran % (Auto) 0.5 (0-0.5) % Neut % (Auto) 82.0 H (45.5-73.1) % Lymph % (Auto) 9.1 L (18.3-44.2) % [place] % (Auto) 6.7 (2.6-8.5) % Eos % (Auto) 1.2 (0-4.4) % Baso % (Auto) 0.5 (0.2-1.2) % Lymph # (Auto) 1.10 (0.9-3.2) K/mm3 [place] # (Auto) 0.8 H (0.1-0.6) K/mm3 Eos # (Auto) 0.2 (0-0.3) K/mm3 Baso # (Auto) 0.1 (0.0-0.1) K/mm3 Abs Immat Gran (auto) 0.06 H (0.00-0.031) K/mm3 Absolute Neuts (auto) 10.0 H (1.3-6.7) K/mm3 Absolute Nucleated RBC 0.000 (0.0-0.012) K/mm3 Band Neutrophils % Not Reportable Nucleated RBC % 0.0 (0.0-0.2) % Platelet Estimate Adequate (Adequate) Anisocytosis 2+ Ovalocytes 1+ Schistocytes None seen PT 21.0 H (11.1-14.7) Seconds INR 1.9 APTT 33.7 (22.3-36.8) Seconds Sodium 134 L (137-145) mmol/L Potassium 2.8 L* (3.4-5.0) mmol/L Chloride 87 L (98-107) mmol/L Carbon Dioxide 36 H (22-30) mmol/L Anion Gap 11 (4-12) mmol/L BUN 29 H D (7-17) mg/dL Creatinine 1.62 H (0.7-1.0) mg/dL Estim Creat Clear Calc 27 ml/min Estimated GFR 31 L (59 - ) Glucose 119 H (65-110) mg/dL Calcium 9.3 (8.4-10.2) mg/dL Magnesium 1.6 (1.6-2.3) mg/dL Total Bilirubin 0.7 (0.2-1.3) mg/dL AST 36 (14-36) U/L ALT 13 (6-35) U/L Alkaline Phosphatase 99 (38-126) U/L Troponin I < 0.012 (0.000-0.034) ng/mL NT-Pro-B Natriuret Pep 611 H (19.9-100) pg/mL Total Protein 8.3 H (6.3-8.2) g/dL Albumin 4.2 (3.5-5.1) g/dL Lipase 101 (23-300) U/L Urine Color Yellow (Yellow) Urine Appearance Cloudy H (Clear) Urine pH 5.0 (5.0-9.0) Ur Specific [place] 1.010 (1.001-1.035) Urine Protein Negative (Negative) mg/dL Urine Glucose (UA) 3+ H (Negative) mg/dL Urine Ketones Negative (Negative) mg/dL Ur Blood (Man) Trace (Negative) Urine Nitrate Positive H (Negative) Urine Bilirubin Negative (Negative) Urine Urobilinogen 0.2 (<2.0) mg/dL Leukocyte Esterase Rfl 2+ H (Negative) JAMIN/UL Urine RBC 0-2 (0-2) /hpf Urine WBC >100 H (0-3) /hpf Ur Squamous Epith Cells None seen (Few) /hpf Urine Bacteria 4+ H /hpf Urine Casts 3-5 Influenza A (RT-PCR) Negative (Negative) Influenza B (RT-PCR) Negative (Negative) RSV (RT-PCR) Negative (Negative) SARS-CoV-2 RNA (RT-PCR) Negative (Negative) Imaging Data Radiologist's impression: Impressions Chest X-Ray 05/29/25 11:52 IMPRESSION: Interstitial thickening, without focal infiltrate or effusion. Chest CTA 05/29/25 13:30 IMPRESSION: No pulmonary embolus. No thoracic aortic dissection. Redemonstration of mediastinal lymphadenopathy, increased in size from prior examination. Increase in prominence of the mosaic attenuation of the bilateral lung henderson, for which follow-up nonemergent high-resolution CT is recommended, for further characterization. Redemonstration of mediastinal lymphadenopathy. Interval enlargement of the subcarinal lymph node, detected on prior study. ECG Data EKG #1: EKG Interpretation: normal rate, sinus rhythm, no ectopy, non-specific ST changes, widened QRS, normal QT and NL axis Discharge Plan Discharge Clinical Impression: Atypical chest pain, MARIELLA (acute kidney injury) Urinary tract infection Qualifiers: Urinary tract infection type: acute cystitis Hematuria presence: without hematuria Qualified Code(s): N30.00 - Acute cystitis without hematuria Patient Disposition: Still a Patient Condition: Serious
[2025-05-29 12:07] LABS: INR 1.9; Prothrombin Time 21.0 Seconds (11.1-14.7)
[2025-05-29 12:08] LABS: Partial Thromboplastin Time 33.7 Seconds (22.3-36.8)
[2025-05-29 12:15] LABS: Alanine Aminotransferase 13 U/L (6-35); Albumin Level 4.2 g/dL (3.5-5.1); Alkaline Phosphatase 99 U/L (38-126); Anion Gap 11 mmol/L (4-12); Aspartate Amino Transferase 36 U/L (14-36); Bilirubin,Total 0.7 mg/dL (0.2-1.3); Blood Urea Nitrogen 29 mg/dL (7-17); Calcium 9.3 mg/dL (8.4-10.2); Carbon Dioxide 36 mmol/L (22-30); Chloride 87 mmol/L (98-107); Estimated CRCL calculation 27 ml/min; Estimated Glomerular Filt Rate 31; Glucose 119 mg/dL (65-110); Lipase 101 U/L (23-300); Potassium 2.8 mmol/L (3.4-5.0); Sodium 134 mmol/L (137-145); Total Protein 8.3 g/dL (6.3-8.2)
[2025-05-29 12:20] LABS: Anisocytosis 2+
[2025-05-29 12:21] LABS: Ovalocytes 1+; Schistocytes None Seen
[2025-05-29 12:26] LABS: NT Pro B Type Natriuretic Pept 611 pg/mL (19.9-100); Troponin I < 0.012 ng/mL (0.000-0.034)
[2025-05-29 12:27] LABS: Influenza A QL RT-PCR Negative (Negative); Influenza B QL RT-PCR Negative (Negative); RSV RNA, RT-PCR Negative (Negative); SARS-CoV-2 RNA PCR Negative (Negative)
[2025-05-29 12:51] LABS: Add Urine Microscopic? YES; Appearance Urine Cloudy (Clear); Glucose Urine UA 3+ mg/dL (Negative); Leukocyte Esterase Ur 2+ LEU/UL (Negative); Nitrate Urine Positive (Negative); Specific Grav Ur 1.010 (1.001-1.035)
[2025-05-29] MEDS: KCL 20 MEQ/SW 100 ML 100 ML 50 MEQ IVPB (13:27)
[2025-05-29] MEDS: POTASSIUM CHLORIDE 20 MEQ PACKET (FOR LIQUID) 40 MEQ PO (13:27)
[2025-05-29] MEDS: SODIUM CHLORIDE 0.9% IV 1,000 ML 100 ML (13:52)
[2025-05-29] MEDS: ONDANSETRON INJ 4 MG/2 ML VIAL IV PUSH ×2 (14:03→21:29)
--- NOTE | 2025-05-29 14:20 | P.HP_ITS ---
H&P: HPI History of Present Illness Date/Time: 05/29/25 14:20 Chief Complaint: Shortness of breath and left-sided chest pain Narrative: 79-year-old female past medical history of AFib, pulmonary hypertension, [place] heart failure, CARLOS, iron deficiency anemia, diabetes type 2 hyperthyroidism presents the hospital with shortness of breath and left-sided chest pain. Patient complains of frequent coughing hard to tell if it is new or old patient is poor historian. She states that she has chest pain when she breathes in. Patient is requiring oxygen 2 L nasal cannula her breath sounds are clear. Patient denies fever chills. Lab work shows leukocytosis at 12.2 hemoglobin 11.6 potassium 2.8, BUN of 29, creatinine of 1.62 with baseline being 0.7 GFR 31, proBNP of 6 year 11, UA shows cloudy positive for nitrates 2+ leukocyte esterase over 100 wbc's and 4+ bacteria. Influenza A/B, RSV, COVID negative. CT chest showed redemonstration of mediastinal lymphadenopathy, increased in size from prior examination. Increase in prominence of the mosaic attenuation of the bilateral lung henderson, for which follow-up nonemergent high-resolution CT is recommended, for further characterization. Review of Systems Review of Systems: 12 systems were reviewed and are negativ e except for as per HPI. [facility] Past Medical History Medical History Paroxysmal atrial fibrillation Chronic anemia Pulmonary hypertension Diastolic heart failure Echocardiogram June 2024: Difficult study with LVH, EF of 50 55%, grade 1 diastolic dysfunction and moderate left atrial enlargement with mild pulmonary hypertension Other hyperlipidemia Restless leg syndrome History of sarcoidosis Hx of arteriovenous malformation (AVM) Iron deficiency anemia CARLOS (obstructive sleep apnea) Intolerant to CPAP Post-menopausal Depression Colonoscopy planned Gastro-esophageal reflux Type 2 diabetes mellitus Hypothyroidism Essential hypertension Surgical History Surgical History Status post cataract extraction of both eyes with insertion of intraocular lens History of right shoulder replacement History of toe surgery History of arthroscopy of knee Family History Family History Mother Family history of lung cancer Family history of lung disease Father Family history of arthritis Family history of heart disease in male family member before age 55 Family history of cardiovascular disease Sibling Family history of malignant neoplasm of breast in first degree relative Carcinoma of colon Breast cancer Daughter Breast cancer Social History Social History (Updated 05/17/25 @ 15:04 by Chula Bui PA-C) Social History: Patient moved to [facility] March 2025. She is a lifelong nonsmoker and denies any history of alcohol use. Her and her raised 1 son and 4 daughters. 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 Gender identity (if verbalized by the patient): Female Spiritual care concerns: No Meds Home Medications and Allergies Home Medications ?Medication ?Instructions ?Recorded ?Confirmed ?Type rivaroxaban 20 mg tablet (Xarelto) 20 mg PO DAILY 10/14/19 05/29/25 History vitamins A,C,O-gzpg-rneoyj 4,296 1 cap PO BID 11/08/20 05/29/25 History mcg-226 mg-90 mg capsule (PreserVision AREDS) acetaminophen 650 mg 1,300 mg PO Q12H pain 05/05/22 05/29/25 History tablet,extended release gabapentin 600 mg tablet 600 mg PO TID #270 tabs 09/03/24 05/29/25 Rx metformin 500 mg tablet 500 mg PO BID #180 tabs 11/05/24 05/29/25 Rx levothyroxine 125 mcg tablet See Rx Instructions .Route 11/30/24 05/29/25 Rx .COMPLEX #90 tabs rosuvastatin 10 mg tablet (Crestor) 10 mg PO DAILY #90 tabs 11/30/24 05/29/25 Rx fluoxetine 20 mg capsule (Prozac) 40 mg (2 x 20 mg) PO DAILY #180 12/17/24 05/29/25 Rx caps pramipexole 1 mg tablet 1 mg PO TID #270 tabs 02/09/25 05/29/25 Rx omeprazole 20 mg capsule,delayed 20 mg PO BID #180 caps 02/18/25 05/29/25 Rx release ferrous sulfate 325 mg (65 mg 325 mg PO EVERY OTHER DAY 05/07/25 05/29/25 History iron) tablet (FeroSul) potassium chloride 20 mEq 20 meq PO BID 05/07/25 05/29/25 History tablet,extended release bumetanide 2 mg tablet 1 mg (1/2 x 2 mg) PO BID #90 tabs 05/20/25 05/29/25 Rx amiodarone 200 mg tablet 200 mg PO Q12H 05/29/25 05/29/25 History empagliflozin 10 mg tablet 10 mg PO DAILY 05/29/25 05/29/25 History (Jardiance) Allergies Allergy/AdvReac Type Severity Reaction Status Date / Time Sulfa (Sulfonamide Allergy Intermediate Rash Verified 05/29/25 11:38 Antibiotics) nitrofurantoin (From Allergy itching Verified 05/29/25 11:38 Macrobid) Vital Signs Vital Signs - 24 hr 05/29/25 11:29 05/29/25 11:40 05/29/25 11:45 Temperature 98.4 F Pulse Rate 85 80 Respiratory Rate 18 17 Blood Pressure 117/66 Pulse Oximetry 98 100 94 Oxygen Delivery Nasal Cannula Nasal Cannula Oxygen Flow Rate 2 2 05/29/25 11:45 05/29/25 11:46 Temperature Pulse Rate 83 82 Respiratory Rate 22 H 18 Blood Pressure 107/70 Pulse Oximetry 100 100 Oxygen Delivery Oxygen Flow Rate Exam Narrative: General: well appearing, appears stated age. HEENT: normocephalic, atraumatic. Mucous membranes moist. EOMI, PERRLA, bilateral sclera anicteric, no conjunctival injection. Neck supple without JVD, lymphadenopathy, or bruit. Respiratory: clear to ascultation bilaterally. No rales/rhonic/wheezes. Cough Cardiovascular: Regular rate and rhythm, normal S1-S2 upon ascultation. No murmurs, rubs, or clicks. PMI is nondisplaced, capillary refill less than 3 second. Abdomen: Soft, round, no pulsatile masses, nondistended and nontender. No rebound, no guarding. No CVA tenderness, no hepatosplenomegaly. Bowel sounds present to all four quadrants. No high pitch or tinkling sounds, resonant to percussion. Extremities: No cyanosis, clubbing, or edema present. Pulses are palpable 2/2. Active ROM to all four extremities. Neuro: Alert and orientated x 4. PERRLA. Cranial nerves 2-12 intact without focal deficit. Skin: Warm, dry, and intact, without rash, erythema, or lesion. Psych: pleasant, cooperative, normal speech, normal affect, no hallucinations, no dysarthia H&P: Results Labs Labs: Short CBC 05/29/25 Range/Units 11:43 WBC 12.2 H (4.5-10.0) K/mm3 Hgb 11.6 L D (12.0-15.0) g/dL Hct 38.9 (37.0-47.0) % Plt Count 232 (150-375) k/mm3 BMP 05/29/25 11:43 Sodium 134 L Potassium 2.8 L* Chloride 87 L Carbon Dioxide 36 H BUN 29 H D Creatinine 1.62 H Glucose 119 H Calcium 9.3 Cardiac Enzymes 05/29/25 Range/Units 11:43 Troponin I < 0.012 (0.000-0.034) ng/mL Liver Function 05/29/25 Range/Units 11:43 Total Bilirubin 0.7 (0.2-1.3) mg/dL AST 36 (14-36) U/L ALT 13 (6-35) U/L Alkaline Phosphatase 99 (38-126) U/L Albumin 4.2 (3.5-5.1) g/dL Urine 05/29/25 Range/Units 12:35 Urine Color Yellow (Yellow) Urine Appearance Cloudy H (Clear) Urine pH 5.0 (5.0-9.0) Ur Specific [place] 1.010 (1.001-1.035) Urine Protein Negative (Negative) mg/dL Urine Glucose (UA) 3+ H (Negative) mg/dL Assessment and Plan Assessment and plan (1) Chest pain: Code(s): R07.9 - Chest pain, unspecified Status: Acute Assessment and Plan: Worse with breathing Trend troponin Frequent coughing pain sounds more pleuritic than cardiac (2) Abnormal finding on CT scan: Code(s): R93.89 - Abnormal findings on diagnostic imaging of other specified body structures Status: Acute Assessment and Plan: mediastinal lymphadenopathy, increased in size from prior examination. Increase in prominence of the mosaic attenuation of the bilateral lung henderson, for which follow-up nonemergent high-resolution CT is recommended, for further characterization. Pulmonology consulted (3) UTI (urinary tract infection): Qualifiers: Hematuria presence: without hematuria Urinary tract infection type: acute cystitis Qualified Code(s): N30.00 - Acute cystitis without hematuria Code(s): N39.0 - Urinary tract infection, site not specified Status: Acute Assessment and Plan: Rocephin Culture and sensitivity pending IVF (4) Diastolic heart failure: Code(s): I50.30 - Unspecified diastolic (congestive) heart failure Status: Acute Assessment and Plan: Continue Bhupendra Brown Xarelto, Patient does not appear to be on diuretics Monitor for fluid overload (5) Paroxysmal atrial fibrillation: Code(s): I48.0 - Paroxysmal atrial fibrillation Status: Acute Assessment and Plan: Continue amiodarone (6) Type 2 diabetes mellitus: Qualifiers: Diabetes mellitus complication status: without complication Diabetes mellitus intermediate insulin use: 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 Qualified Code(s): E11.9 - Type 2 diabetes mellitus without complications Code(s): E11.9 - Type 2 diabetes mellitus without complications Status: Acute Assessment and Plan: Continue Adelineance Jackieu-Bertha platt HS SSI Hold metformin Quality VTE Prophylaxis VTE prophylaxis: mechanical ordered and pharmacologic ordered Hospitalist MIPS Advance Care Plan I have confirmed that the patient's Advanced Care Plan is present, code status is documented, or surrogate decision maker is listed in patient medical record.: Yes Medication Reconciliation I have utilized all available resources to obtain, update and review the patients current medications (includes all prescriptions, OTC, herbals, cannabis, and nutritional supplements).: Yes
[2025-05-29 14:36] LABS: Magnesium 1.6 mg/dL (1.6-2.3)
--- NOTE | 2025-05-29 14:38 | ECG_ITS ---
Test Date: 2025-05-29 14:40:26 Measurements Intervals Sacul Rate: 80 P: 50 LA: 159 QRS: -7 QRSD: 98 T: -14 QT: 390 QTc: 452 Interpretive Statements SINUS RHYTHM ST DEVIATION AND MODERATE T-WAVE ABNORMALITY, CONSIDER ANTERIOR ISCHEMIA [-0.1+ mV T-WAVE IN V3/V4] Compared to ECG 05/29/2025 11:37:28 No significant changes Electronically Signed On 05-30-2025 14:12:26 CDT by Steven Reynolds M.D.
[2025-05-29 15:35] LABS: Troponin I < 0.012 ng/mL (0.000-0.034)
--- NOTE | 2025-05-29 15:38 | PC.NURSE ---
patient was unable to tolerate potassium infusion at prescribed rate- infusion slowed down to 25ml/hr
--- NOTE | 2025-05-29 18:12 | ADMGEN ---
This patient, Nikole Osorio, was admitted to IMU Room 206-02. Patient/family oriented to hospital policies and general routines including ID bracelet, bed and alarms, visiting hours, pain management, procedures, bathroom and other care routines, personal items, smoking policy, room service/diet, and visiting hours. Information on how to activate the Rapid Response Team has been discussed. Patient/Family are encouraged to report perceived risks to care and to ask questions if they do not understand what they are told or what they should do.
[2025-05-29] MEDS: SODIUM CHLORIDE 0.9% IV 1,000 ML 100 ML IV CONT (18:30)
[2025-05-29] MEDS: cefTRIAXone 1 GM in SODIUM CHLORIDE 0.9% IV 50 ML 100 ML IVPB (18:46)
[2025-05-29] MEDS: AMIODARONE HCL 200 MG TABLET PO (21:18)
[2025-05-29] MEDS: ROSUVASTATIN 10 MG TABLET PO (22:06)
[2025-05-29] MEDS: RIVAROXABAN 20 MG TABLET PO (22:06)
[2025-05-30] VITALS (20 sets, daily range): BP systolic 93–117; BP diastolic 51–65; PULSE 65–87; RESP 16–21; TEMP 36.4–36.8; O2SAT 90–100
[2025-05-30] MEDS: GABAPENTIN 300 MG CAPSULE 600 MG PO ×3 (01:57→21:44)
[2025-05-30] MEDS: PRAMIPEXOLE 1 MG TABLET PO ×2 (01:57→16:44)
[2025-05-30 04:36] LABS: Hematocrit 33.0 % (37.0-47.0); Hemoglobin 9.6 g/dL (12.0-15.0); Immature Granulocyte Percent A 0.3 % (0-0.5); Lymphocytes Absolute Auto 1.08 K/mm3 (0.9-3.2); Mean Corpuscular HGB Conc 29.1 g/dl (32-36); Mean Corpuscular Hemoglobin 24.4 pg (26-34); Mean Corpuscular Volume 83.8 fl (80-100); Nucleated Red Blood Cells Absolute Auto 0.000 K/mm3 (0.0-0.012); Nucleated Red Blood Cells Perc 0.0 % (0.0-0.2); Platelet Count Result 197 k/mm3 (150-375); Red Blood Count 3.94 M/mm3 (4.2-5.4); White Blood Count 9.6 K/mm3 (4.5-10.0)
[2025-05-30 04:58] LABS: Anion Gap 6 mmol/L (4-12); Blood Urea Nitrogen 25 mg/dL (7-17); Calcium 8.3 mg/dL (8.4-10.2); Carbon Dioxide 35 mmol/L (22-30); Chloride 88 mmol/L (98-107); Cholesterol 106 mg/dL (0-200); Estimated CRCL calculation 34 ml/min; Estimated Glomerular Filt Rate 40; Glucose 102 mg/dL (65-110); HDL Direct 34 mg/dL; Potassium 2.6 mmol/L (3.4-5.0); Sodium 129 mmol/L (137-145); Triglycerides 80 mg/dL (<150)
[2025-05-30 05:04] LABS: Band Neutrophils Percent 0 % (0-6); Hypochromasia 1+; Ovalocytes 1+; Schistocytes None Seen
[2025-05-30 05:34] LABS: Magnesium 1.8 mg/dL (1.6-2.3)
[2025-05-30] MEDS: POTASSIUM CHLORIDE INJ 40 MEQ in SODIUM CHLORIDE 0.9% IV 500 ML 130 MEQ IVPB ×2 (06:24→11:57)
[2025-05-30] MEDS: ONDANSETRON INJ 4 MG/2 ML VIAL IV PUSH (06:47)
[2025-05-30] MEDS: POTASSIUM CHLORIDE 20 MEQ ER TABLET PO (06:47)
[2025-05-30] MEDS: LEVOTHYROXINE SODIUM 125 MCG TABLET BY MOUTH (06:47)
[2025-05-30] MEDS: EMPAGLIFLOZIN 10 MG TABLET PO (08:41)
[2025-05-30] MEDS: AMIODARONE HCL 200 MG TABLET PO ×2 (08:43→21:43)
[2025-05-30] MEDS: BUMETANIDE 1 MG TABLET PO ×2 (08:43→16:25)
--- NOTE | 2025-05-30 08:54 | P.PNIM_ITS ---
Progress Note: A&P Assessment and Plan (1) Chest pain: Code(s): R07.9 - Chest pain, unspecified Status: Acute Assessment and Plan: Left chest pain, improving Troponin negative x2 Frequent coughing pain sounds more pleuritic but nontender to palpation (2) Abnormal finding on CT scan: Code(s): R93.89 - Abnormal findings on diagnostic imaging of other specified body structures Status: Acute Assessment and Plan: Mediastinal lymphadenopathy, increased in size from prior examination. Increase in prominence of the mosaic attenuation of the bilateral lung henderson, for which follow-up nonemergent high-resolution CT is recommended, for further characterization. Pulmonology consulted Check LDH, BMP 05/29 Chest CTA showed No pulmonary embolus. No thoracic aortic dissection. Redemonstration of mediastinal lymphadenopathy, increased in size from prior examination. Increase in prominence of the mosaic attenuation of the bilateral lung henderson, for which follow-up nonemergent high-resolution CT is recommended, for further characterization. Redemonstration of mediastinal lymphadenopathy. Interval enlargement of the subcarinal lymph node, detected on prior study. (3) UTI (urinary tract infection): Qualifiers: Hematuria presence: without hematuria Urinary tract infection type: acute cystitis Qualified Code(s): N30.00 - Acute cystitis without hematuria Code(s): N39.0 - Urinary tract infection, site not specified Status: Acute Assessment and Plan: Rocephin Culture and sensitivity pending Stop IVF (4) Diastolic heart failure: Code(s): I50.30 - Unspecified diastolic (congestive) heart failure Status: Acute Assessment and Plan: Continue Jardiance, Crestor, Xarelto, Bumex 1mg BID LE edema reportedly improving --Stop fluids, continue bumex 1mg BID, add spironolactone 12.5mg daily --Follows with cardiology outpatient, who has told her she has a life expectancy of about 6 months to a year due to pulmonary HTN and heart failure and valvular disease --Continue to monitor on tele --Cardiology consult for discharge medication recommendations (5) Paroxysmal atrial fibrillation: Code(s): I48.0 - Paroxysmal atrial fibrillation Status: Acute Assessment and Plan: --Continue amiodarone, started about 5 days ago. Noted that she became very fatigued after starting it, also increased edema --Continue Xarelto (6) Type 2 diabetes mellitus: Qualifiers: Diabetes mellitus complication status: without complication Diabetes mellitus group home insulin use: without intermediate card tender use Qualified Code(s): E11.9 - Type 2 diabetes mellitus without complications Code(s): E11.9 - Type 2 diabetes mellitus without complications Status: Acute Assessment and Plan: Continue Jardiance Accu-Cheks a.c. HS SSI Hold metformin (7) Hypokalemia: Code(s): E87.6 - Hypokalemia Status: Acute Assessment and Plan: Significant hypokalemia on admission. s/p 20meq 05/29, 140meq 05/30 Taking home bumex 1mg BID --Replacing potassium with frequent lab draws, 2.8>2.6 --Mag 1.7, s/p 2G, now 2.3, follow --Add spironolactone 12.5 daily & titrate --Schedule potassium 20meq BID --If remains low, consider renal losses Time Spent With Patient Time: 57 minutes Subjective Date/time seen: 05/30/25 08:54 Interval history: Recently started amiodarone 5 days ago. Subsequently felt very fatigued, increased edema and new chest pain radiating to left upper chest. Chest pain resolving. Has had frequently hospitalizations recently Cough for 2 months, worse when lying flat Potassium still very low today Review of Systems Review of Systems: 12 systems were reviewed and are negativ e except for as per HPI. Exam Narrative: General - Awake and alert. No acute distress Eyes - PERRLA, EOM intact ENT - No thrush, No erythema Neck - No noticeable or palpable swelling Lymph Nodes - No lymphadenopathy Cardiovascular - RRR, +murmur, no JVD Lungs: Clear to auscultation, No wheezing, no use of accessory muscles, rare crackles Skin - Skin warm and dry, no wounds or rashes Abdomen - Normal bowel sounds, abdomen soft and nontender Extremities - Mild LE edema, cyanosis or clubbing Musculoskeletal - 5/5 strength, normal range of motion, no swollen or erythematous joints. Neurological ? Alert and oriented x 3, CN 2-12 grossly intact. Psych: Normal mood and affect Objective Data Vital Signs Vital Signs: Vital Signs - 24 hr 05/29/25 11:29 05/29/25 11:40 05/29/25 11:45 Temperature 98.4 F Pulse Rate 85 80 Respiratory Rate 18 17 Blood Pressure 117/66 Pulse Oximetry 98 100 94 Oxygen Delivery Nasal Cannula Nasal Cannula Oxygen Flow Rate 2 2 05/29/25 11:45 05/29/25 11:46 05/29/25 11:47 Temperature Pulse Rate 83 82 83 Respiratory Rate 22 H 18 24 H Blood Pressure 107/70 Pulse Oximetry 100 100 100 Oxygen Delivery Oxygen Flow Rate 05/29/25 12:00 05/29/25 12:01 05/29/25 12:15 Temperature Pulse Rate 81 79 79 Respiratory Rate 13 13 21 H Blood Pressure 118/66 Pulse Oximetry 97 97 99 Oxygen Delivery Oxygen Flow Rate 05/29/25 12:16 05/29/25 12:30 05/29/25 12:31 Temperature Pulse Rate 80 80 78 Respiratory Rate 17 24 H 26 H Blood Pressure 98/59 L 115/70 Pulse Oximetry 99 100 100 Oxygen Delivery Oxygen Flow Rate 05/29/25 12:45 05/29/25 12:46 05/29/25 13:11 Temperature Pulse Rate 79 79 76 Respiratory Rate 19 22 H 22 H Blood Pressure 104/63 Pulse Oximetry 98 96 98 Oxygen Delivery Oxygen Flow Rate 05/29/25 13:15 05/29/25 13:30 05/29/25 13:33 Temperature Pulse Rate 76 76 86 Respiratory Rate 18 24 H 16 Blood Pressure 110/92 H Pulse Oximetry 96 94 92 Oxygen Delivery Oxygen Flow Rate 05/29/25 13:45 05/29/25 13:46 05/29/25 14:00 Temperature Pulse Rate 80 83 82 Respiratory Rate 25 H 22 H 21 H Blood Pressure 98/57 L Pulse Oximetry 96 94 99 Oxygen Delivery Oxygen Flow Rate 05/29/25 14:15 05/29/25 14:30 05/29/25 14:45 Temperature Pulse Rate 78 78 80 Respiratory Rate 17 26 H 25 H Blood Pressure Pulse Oximetry 98 97 Oxygen Delivery Oxygen Flow Rate 05/29/25 15:00 05/29/25 15:15 05/29/25 15:30 Temperature Pulse Rate 74 77 76 Respiratory Rate 24 H 20 27 H Blood Pressure Pulse Oximetry 95 94 96 Oxygen Delivery Oxygen Flow Rate 05/29/25 15:45 05/29/25 16:00 05/29/25 16:15 Temperature Pulse Rate 80 78 83 Respiratory Rate 23 H 21 H 22 H Blood Pressure Pulse Oximetry 94 95 90 Oxygen Delivery Oxygen Flow Rate 05/29/25 16:30 05/29/25 16:45 05/29/25 17:00 Temperature Pulse Rate 84 82 83 Respiratory Rate 28 H 20 23 H Blood Pressure Pulse Oximetry 97 89 L 94 Oxygen Delivery Oxygen Flow Rate 05/29/25 17:25 05/29/25 20:00 05/29/25 20:16 Temperature 98 F 97.5 F L Pulse Rate 83 80 74 Respiratory Rate 18 20 Blood Pressure 94/57 L 103/58 L Pulse Oximetry 99 100 Oxygen Delivery Oxygen Flow Rate 05/29/25 21:18 05/29/25 21:20 05/29/25 22:00 Temperature Pulse Rate 77 73 Respiratory Rate Blood Pressure Pulse Oximetry 100 Oxygen Delivery Nasal Cannula Oxygen Flow Rate 2 05/30/25 00:00 05/30/25 00:00 05/30/25 00:05 Temperature 98.1 F Pulse Rate 73 87 Respiratory Rate 18 Blood Pressure 107/58 L Pulse Oximetry 96 96 Oxygen Delivery Nasal Cannula Oxygen Flow Rate 2 05/30/25 02:00 05/30/25 04:00 05/30/25 04:10 Temperature Pulse Rate 76 71 Respiratory Rate Blood Pressure Pulse Oximetry 97 Oxygen Delivery Nasal Cannula Oxygen Flow Rate 2 05/30/25 04:19 05/30/25 06:00 05/30/25 08:00 Temperature 98.3 F 98.2 F Pulse Rate 69 66 84 Respiratory Rate 20 21 H Blood Pressure 93/51 L 108/59 L Pulse Oximetry 100 95 Oxygen Delivery Oxygen Flow Rate 05/30/25 08:43 Temperature Pulse Rate 75 Respiratory Rate Blood Pressure Pulse Oximetry Oxygen Delivery Oxygen Flow Rate Intake/Output Intake/Output: Intake & Output 05/27/25 05/28/25 05/29/25 05/30/25 23:59 23:59 23:59 23:59 Intake Total 720 2000 Output Total 1025 Balance 720 975 Meds/Results Medications: Active Medications Generic Name Dose Route Start Last Admin Trade Name Freq PRN Reason Stop Dose Admin Acetaminophen 650 mg 05/29/25 14:27 Acetaminophen 325 Mg Tablet PO Q4H PRN Mild Pain (1-3) or Fever Hydrocodone Bitart/Acetaminophen 1 tab 05/29/25 14:27 Hydrocodone/Acetaminophen (*Crx) 5-325 Mg Tablet PO Q4H PRN Moderate Pain (4-6) Amiodarone HCl 200 mg 05/31/25 09:00 Amiodarone Hcl 200 Mg Tablet PO DAILY KERLINE Amiodarone HCl 200 mg 05/29/25 21:00 05/30/25 08:43 Amiodarone Hcl 200 Mg Tablet PO 05/30/25 23:00 200 mg Q12HR KERLINE Administration Bumetanide 1 mg 05/30/25 09:00 05/30/25 08:43 Bumetanide 1 Mg Tablet PO 1 mg BID KERLINE Administration Dextrose 12.5 gm 05/29/25 23:04 Dextrose 50% 25 Gm/50 Ml Syringe IV PUSH PRN PRN Hypoglycemia Protocol Docusate Sodium 100 mg 05/29/25 17:00 05/30/25 08:45 Docusate Sodium 100 Mg Capsule PO Not Given BID KERLINE Empagliflozin 10 mg 05/30/25 09:00 05/30/25 08:41 Empagliflozin 10 Mg Tablet PO 10 mg DAILY KERLINE Administration Fluoxetine HCl 40 mg 05/30/25 09:00 05/30/25 08:41 Fluoxetine Hcl 20 Mg Capsule PO 40 mg DAILY KERLINE Administration Glucagon 1 mg 05/29/25 23:04 Glucagon For Inj 1 Mg Vial IM PRN PRN Hypoglycemia Protocol Glucose 15 gm 05/29/25 23:04 Glucose Oral Gel 15 Gm Of Glucse In 37.5 Gm Tube PO PRN PRN Hypoglycemia Protocol Ceftriaxone Sodium 1 gm/ 50 mls @ 100 mls/hr 05/30/25 19:00 Sodium Chloride IVPB Q24H KERLINE Sodium Chloride 1,000 mls @ 100 mls/hr 05/29/25 14:30 05/30/25 06:20 Normal Saline Iv IV CONT Infused .Q10H KERLINE Infusion Dextrose 1,000 mls @ 100 mls/hr 05/29/25 23:04 Dextrose 5% 1,000 Ml IVPB PRN PRN Hypoglycemia Protocol Potassium Chloride 40 meq/ 520 mls @ 130 mls/hr 05/30/25 05:05 05/30/25 06:24 Sodium Chloride IVPB 05/30/25 09:04 130 mls/hr ONCE ONE Administration Insulin Aspart 2 - 5 units 05/30/25 08:00 05/30/25 08:21 Insulin Aspart (*Bkc) 100 Units/Ml SUB-Q Not Given TIDWM [facility] Protocol Insulin Aspart 1 - 2 units 05/30/25 21:00 Insulin Aspart (*Bkc) 100 Units/Ml SUB-Q HS [facility] Protocol Levothyroxine Sodium 125 mcg 05/30/25 06:30 05/30/25 06:47 Levothyroxine Sodium 125 Mcg Tablet BY MOUTH 125 mcg DAILY@0630 KERLINE Administration Morphine Sulfate 2 mg 05/29/25 14:27 Morphine Sulfate (*Crx) 2 Mg/Ml Inj IV PUSH Q5M PRN Pain Rated 4-6 Nitroglycerin 0.4 mg 05/29/25 14:27 Nitroglycerin Sl 0.4 Mg Tablet SUBLINGUAL Q5MIN PRN Chest Pain Ondansetron HCl 4 mg 05/29/25 14:08 05/30/25 06:47 Ondansetron Inj 4 Mg/2 Ml Vial IV PUSH 4 mg Q4H PRN Administration Nausea Perflutren Lipid Microsphere 0 ml 05/29/25 14:27 Perflutren Lipid Microspheres 1.5 Ml Vial Diluted To 10 Ml Total Volume IV PUSH 06/01/25 14:30 ONCE PRN adequate visualization Protocol Rivaroxaban 20 mg 05/29/25 21:50 05/29/25 22:06 Rivaroxaban 20 Mg Tablet PO 20 mg DAILY@1700 KERLINE Administration Rosuvastatin Calcium 10 mg 05/29/25 21:50 05/29/25 22:06 Rosuvastatin 10 Mg Tablet PO 10 mg HS KERLINE Administration Radiology Results: ITS Impressions Chest X-Ray 05/29/25 11:52 IMPRESSION: Interstitial thickening, without focal infiltrate or effusion. Chest CTA 05/29/25 13:30 IMPRESSION: No pulmonary embolus. No thoracic aortic dissection. Redemonstration of mediastinal lymphadenopathy, increased in size from prior examination. Increase in prominence of the mosaic attenuation of the bilateral lung henderson, for which follow-up nonemergent high-resolution CT is recommended, for further characterization. Redemonstration of mediastinal lymphadenopathy. Interval enlargement of the subcarinal lymph node, detected on prior study. Labs Labs: Laboratory Results - last 24 hr 05/29/25 05/29/25 05/29/25 11:43 11:47 12:35 WBC 12.2 H RBC 4.72 Hgb 11.6 L D Hct 38.9 MCV 82.4 MCH 24.6 L MCHC 29.8 L RDW 21.6 H Plt Count 232 MPV 9.2 Immature Gran % (Auto) 0.5 Neut % (Auto) 82.0 H Lymph % (Auto) 9.1 L Bucks % (Auto) 6.7 Eos % (Auto) 1.2 Baso % (Auto) 0.5 Lymph # (Auto) 1.10 Bucks # (Auto) 0.8 H Eos # (Auto) 0.2 Baso # (Auto) 0.1 Abs Immat Gran (auto) 0.06 H Absolute Neuts (auto) 10.0 H Absolute Nucleated RBC 0.000 Band Neutrophils % Not Reportable Nucleated RBC % 0.0 Platelet Estimate Adequate Hypochromasia Anisocytosis 2+ Ovalocytes 1+ Schistocytes None seen PT 21.0 H INR 1.9 APTT 33.7 Sodium 134 L Potassium 2.8 L* Chloride 87 L Carbon Dioxide 36 H Anion Gap 11 BUN 29 H D Creatinine 1.62 H Estim Creat Clear Calc 27 Estimated GFR 31 L Glucose 119 H POC Capillary Glucose Calcium 9.3 Magnesium 1.6 Total Bilirubin 0.7 AST 36 ALT 13 Alkaline Phosphatase 99 Troponin I < 0.012 NT-Pro-B Natriuret Pep 611 H Total Protein 8.3 H Albumin 4.2 Triglycerides Cholesterol LDL Cholesterol Direct HDL Direct Lipase 101 Urine Color Yellow Urine Appearance Cloudy H Urine pH 5.0 Ur Specific Margaret 1.010 Urine Protein Negative Urine Glucose (UA) 3+ H Urine Ketones Negative Ur Blood (Man) Trace Urine Nitrate Positive H Urine Bilirubin Negative Urine Urobilinogen 0.2 Leukocyte Esterase Rfl 2+ H Urine RBC 0-2 Urine WBC >100 H Ur Squamous Epith Cells None seen Urine Bacteria 4+ H Urine Casts 3-5 Influenza A (RT-PCR) Negative Influenza B (RT-PCR) Negative RSV (RT-PCR) Negative SARS-CoV-2 RNA (RT-PCR) Negative 05/29/25 05/29/25 05/30/25 14:49 20:23 04:02 WBC RBC Hgb Hct MCV MCH MCHC RDW Plt Count MPV Immature Gran % (Auto) Neut % (Auto) Lymph % (Auto) Bucks % (Auto) Eos % (Auto) Baso % (Auto) Lymph # (Auto) Bucks # (Auto) Eos # (Auto) Baso # (Auto) Abs Immat Gran (auto) Absolute Neuts (auto) Absolute Nucleated RBC Band Neutrophils % Nucleated RBC % Platelet Estimate Hypochromasia Anisocytosis Ovalocytes Schistocytes PT INR APTT Sodium Potassium Chloride Carbon Dioxide Anion Gap BUN Creatinine Estim Creat Clear Calc Estimated GFR Glucose POC Capillary Glucose 153 H Calcium Magnesium 1.8 Total Bilirubin AST ALT Alkaline Phosphatase Troponin I < 0.012 NT-Pro-B Natriuret Pep Total Protein Albumin Triglycerides Cholesterol LDL Cholesterol Direct HDL Direct Lipase Urine Color Urine Appearance Urine pH Ur Specific Margaret Urine Protein Urine Glucose (UA) Urine Ketones Ur Blood (Man) Urine Nitrate Urine Bilirubin Urine Urobilinogen Leukocyte Esterase Rfl Urine RBC Urine WBC Ur Squamous Epith Cells Urine Bacteria Urine Casts Influenza A (RT-PCR) Influenza B (RT-PCR) RSV (RT-PCR) SARS-CoV-2 RNA (RT-PCR) 05/30/25 05/30/25 04:05 07:48 WBC 9.6 RBC 3.94 L Hgb 9.6 L Hct 33.0 L MCV 83.8 MCH 24.4 L MCHC 29.1 L RDW 21.2 H Plt Count 197 MPV 10.0 Immature Gran % (Auto) 0.3 Neut % (Auto) 75.8 H Lymph % (Auto) 11.3 L Bucks % (Auto) 11.2 H Eos % (Auto) 0.9 Baso % (Auto) 0.5 Lymph # (Auto) 1.08 Bucks # (Auto) 1.1 H Eos # (Auto) 0.1 Baso # (Auto) 0.1 Abs Immat Gran (auto) 0.03 Absolute Neuts (auto) 7.3 H Absolute Nucleated RBC 0.000 Band Neutrophils % 0 Nucleated RBC % 0.0 Platelet Estimate Adequate Hypochromasia 1+ Anisocytosis Ovalocytes 1+ Schistocytes None seen PT INR APTT Sodium 129 L Potassium 2.6 L* Chloride 88 L Carbon Dioxide 35 H Anion Gap 6 BUN 25 H Creatinine 1.30 H Estim Creat Clear Calc 34 Estimated GFR 40 L Glucose 102 POC Capillary Glucose 103 Calcium 8.3 L Magnesium Total Bilirubin AST ALT Alkaline Phosphatase Troponin I NT-Pro-B Natriuret Pep Total Protein Albumin Triglycerides 80 Cholesterol 106 LDL Cholesterol Direct 40 HDL Direct 34 Lipase Urine Color Urine Appearance Urine pH Ur Specific Margaret Urine Protein Urine Glucose (UA) Urine Ketones Ur Blood (Man) Urine Nitrate Urine Bilirubin Urine Urobilinogen Leukocyte Esterase Rfl Urine RBC Urine WBC Ur Squamous Epith Cells Urine Bacteria Urine Casts Influenza A (RT-PCR) Influenza B (RT-PCR) RSV (RT-PCR) SARS-CoV-2 RNA (RT-PCR) Quality VTE Prophylaxis VTE prophylaxis: mechanical ordered and pharmacologic ordered Hospitalist MIPS Advance Care Plan I have confirmed that the patient's Advanced Care Plan is present, code status is documented, or surrogate decision maker is listed in patient medical record.: Yes Medication Reconciliation I have utilized all available resources to obtain, update and review the patients current medications (includes all prescriptions, OTC, herbals, cannabis, and nutritional supplements).: Yes
[2025-05-30] MEDS: MAGNESIUM SULF 2 GM/WATER 50ML 2 GM/50 ML BAG IVPB (09:39)
[2025-05-30 11:39] LABS: Potassium 3.0 mmol/L (3.4-5.0)
[2025-05-30] MEDS: PHENAZOPYRIDINE HCL 100 MG TABLET PO (15:31)
[2025-05-30] MEDS: DOCUSATE SODIUM 100 MG CAPSULE PO (16:25)
[2025-05-30] MEDS: RIVAROXABAN 20 MG TABLET PO (16:25)
[2025-05-30 16:38] LABS: Anion Gap 8 mmol/L (4-12); Blood Urea Nitrogen 25 mg/dL (7-17); Calcium 8.5 mg/dL (8.4-10.2); Carbon Dioxide 33 mmol/L (22-30); Chloride 92 mmol/L (98-107); Estimated CRCL calculation 33 ml/min; Estimated Glomerular Filt Rate 38; Glucose 101 mg/dL (65-110); Magnesium 2.3 mg/dL (1.6-2.3); Potassium 3.1 mmol/L (3.4-5.0); Sodium 133 mmol/L (137-145)
--- NOTE | 2025-05-30 17:03 | P.CONCA_ITS ---
Assessment and Plan Assessment and plan (1) Chest pain: Code(s): R07.9 - Chest pain, unspecified Status: Acute (2) Acute exacerbation of chronic heart failure: Code(s): I50.9 - Heart failure, unspecified Status: Acute (3) Paroxysmal atrial fibrillation: Code(s): I48.0 - Paroxysmal atrial fibrillation Status: Acute (4) Pulmonary hypertension: Code(s): I27.20 - Pulmonary hypertension, unspecified Status: Acute Plan 79-year-old woman with chronic diastolic heart failure, paroxysmal atrial fibrillation (now on amiodarone as well as Xarelto), severe pulmonary hypertension (by echo), diabetes, and obstructive sleep apnea is presented with left-sided chest pain Chest pain -[facility] -clinically appears to be pleuritic in nature -can follow up outpatient for possible ischemic eval Chronic diastolic heart failure -continue Bumex 1 mg p.o. b.i.d. -fluid restriction to 1.5 L per day while hospitalized -if renal function continues to worsen despite diuresis, right and left heart catheterization may be warranted -on spironolactone for potassium correction -Jardiance 10 mg p.o. daily Severe pulmonary hypertension -if she continues to have significant shortness of breath and exertional symptoms despite optimal diuresis, right and left heart catheterization may be warranted Paroxysmal atrial fibrillation -continue amiodarone 200 mg p.o. daily and Xarelto 20 mg every evening with dinner Obstructive sleep apnea -recommend CPAP compliance History of Present Illness History of Present Illness Consult date/time: 05/30/25 17:03 Requesting physician: Dianna Flores APRN Consult reason: chest pain Reason For Visit: UTI, Chest pain, Hypoxia Narrative: 79-year-old woman with chronic diastolic heart failure, paroxysmal atrial fibrillation (now on amiodarone as well as Xarelto), severe pulmonary hypertension (by echo), diabetes, and obstructive sleep apnea is presented with left-sided chest pain. States that she was sleeping in her chair when she woke up with the left-sided chest discomfort radiating to her left shoulders. This pain lasted for about 2 hours. There was no specific factors that would improve her pain. The pain has now subsided however she still feels some which she takes deep breaths. Otherwise it would also appear that she has been having orthopnea where she needs to sleep sitting up for quite some time now. No syncopal events however she does get dizzy when she bends over stands up too quickly. States that she had a transient diagnosis of sarcoidosis back in . Review of Systems 2 Cardiovascular: Cardiovascular: Reports as per HPI Respiratory: Respiratory: Reports as per HPI [facility] Past Medical History Medical History (Updated 05/30/25 @ 17:12 by Steven Reynolds MD) Pulmonary hypertension Paroxysmal atrial fibrillation Chronic anemia Diastolic heart failure Echocardiogram June 2024: Difficult study with LVH, EF of 50 55%, grade 1 diastolic dysfunction and moderate left atrial enlargement with mild pulmonary hypertension Other hyperlipidemia Restless leg syndrome History of sarcoidosis Hx of arteriovenous malformation (AVM) Iron deficiency anemia CARLOS (obstructive sleep apnea) Intolerant to CPAP Post-menopausal Depression Colonoscopy planned Gastro-esophageal reflux Type 2 diabetes mellitus Hypothyroidism Essential hypertension Surgical History Surgical History Status post cataract extraction of both eyes with insertion of intraocular lens History of right shoulder replacement History of toe surgery History of arthroscopy of knee Family History Family History Mother Family history of lung cancer Family history of lung disease Father Family history of arthritis Family history of heart disease in male family member before age 55 Family history of cardiovascular disease Sibling Family history of malignant neoplasm of breast in first degree relative Carcinoma of colon Breast cancer Daughter Breast cancer Social History Social History (Updated 05/17/25 @ 15:04 by Chula Bui PA-C) Social History: Patient moved to [facility] assisted alf March 2025. She is a lifelong nonsmoker and denies any history of alcohol use. Her and her raised 1 son and 4 daughters. 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 Gender identity (if verbalized by the patient): Female Spiritual care concerns: No Meds Home Medications and Allergies Home Medications ?Medication ?Instructions ?Recorded ?Confirmed ?Type rivaroxaban 20 mg tablet (Xarelto) 20 mg PO DAILY 10/14/19 05/29/25 History vitamins A,C,C-aqsq-mtxctg 4,296 1 cap PO BID 11/08/20 05/29/25 History mcg-226 mg-90 mg capsule (PreserVision AREDS) acetaminophen 650 mg 1,300 mg PO Q12H pain 05/05/22 05/29/25 History tablet,extended release gabapentin 600 mg tablet 600 mg PO TID #270 tabs 09/03/24 05/29/25 Rx metformin 500 mg tablet 500 mg PO BID #180 tabs 11/05/24 05/29/25 Rx levothyroxine 125 mcg tablet See Rx Instructions .Route 11/30/24 05/29/25 Rx .COMPLEX #90 tabs rosuvastatin 10 mg tablet (Crestor) 10 mg PO DAILY #90 tabs 11/30/24 05/29/25 Rx fluoxetine 20 mg capsule (Prozac) 40 mg (2 x 20 mg) PO DAILY #180 12/17/24 05/29/25 Rx caps pramipexole 1 mg tablet 1 mg PO TID #270 tabs 02/09/25 05/29/25 Rx omeprazole 20 mg capsule,delayed 20 mg PO BID #180 caps 02/18/25 05/29/25 Rx release ferrous sulfate 325 mg (65 mg 325 mg PO EVERY OTHER DAY 05/07/25 05/29/25 History iron) tablet (FeroSul) potassium chloride 20 mEq 20 meq PO BID 05/07/25 05/29/25 History tablet,extended release bumetanide 2 mg tablet 1 mg (1/2 x 2 mg) PO BID #90 tabs 05/20/25 05/29/25 Rx amiodarone 200 mg tablet 200 mg PO Q12H 05/29/25 05/29/25 History empagliflozin 10 mg tablet 10 mg PO DAILY 05/29/25 05/29/25 History (Jardiance) Allergies Allergy/AdvReac Type Severity Reaction Status Date / Time Sulfa (Sulfonamide Allergy Intermediate Rash Verified 05/29/25 11:38 Antibiotics) nitrofurantoin (From Allergy itching Verified 05/29/25 11:38 Macrobid) Vital Signs Vital Signs - 24 hr 05/29/25 17:25 05/29/25 20:00 05/29/25 20:16 Temperature 36.6 C 36.4 C L Pulse Rate 83 80 74 Respiratory Rate 18 20 Blood Pressure 94/57 L 103/58 L Pulse Oximetry 99 100 Oxygen Delivery Oxygen Flow Rate 05/29/25 21:18 05/29/25 21:20 05/29/25 22:00 Temperature Pulse Rate 77 73 Respiratory Rate Blood Pressure Pulse Oximetry 100 Oxygen Delivery Nasal Cannula Oxygen Flow Rate 2 05/30/25 00:00 05/30/25 00:00 05/30/25 00:05 Temperature 36.7 C Pulse Rate 73 87 Respiratory Rate 18 Blood Pressure 107/58 L Pulse Oximetry 96 96 Oxygen Delivery Nasal Cannula Oxygen Flow Rate 2 05/30/25 02:00 05/30/25 04:00 05/30/25 04:10 Temperature Pulse Rate 76 71 Respiratory Rate Blood Pressure Pulse Oximetry 97 Oxygen Delivery Nasal Cannula Oxygen Flow Rate 2 05/30/25 04:19 05/30/25 06:00 05/30/25 08:00 Temperature 36.8 C 36.8 C Pulse Rate 69 66 84 Respiratory Rate 20 21 H Blood Pressure 93/51 L 108/59 L Pulse Oximetry 100 95 Oxygen Delivery Oxygen Flow Rate 05/30/25 08:00 05/30/25 08:00 05/30/25 08:43 Temperature Pulse Rate 77 75 Respiratory Rate Blood Pressure Pulse Oximetry 95 Oxygen Delivery Nasal Cannula Oxygen Flow Rate 2 05/30/25 10:00 05/30/25 11:38 05/30/25 12:00 Temperature 36.7 C Pulse Rate 77 68 Respiratory Rate 16 Blood Pressure 103/56 L Pulse Oximetry 100 100 Oxygen Delivery Nasal Cannula Oxygen Flow Rate 2 05/30/25 12:00 05/30/25 14:00 05/30/25 16:00 Temperature 36.4 C Pulse Rate 67 68 70 Respiratory Rate 18 Blood Pressure 117/65 Pulse Oximetry 98 Oxygen Delivery Oxygen Flow Rate 05/30/25 16:00 Temperature Pulse Rate 67 Respiratory Rate Blood Pressure Pulse Oximetry Oxygen Delivery Oxygen Flow Rate Exam 2 Const: General: comfortable HENMT: Mouth: Yes moist mucous membranes Eyes: EOM: EOMs intact bilaterally Neck: Neck: no JVD Resp: Effort & Inspection: normal respiratory effort Auscultation: rales Cardio: Rate: regular rate Rhythm: regular rhythm GI: GI Palp: Yes Soft to palpation Skin: General skin exam: erythema Neuro: Speech: normal speech Extrem: General: no pedal edema Results Labs and Meds 05/30/25 04:05 05/30/25 16:16 Lab results: Cardiac Enzymes 05/30/25 Range/Units 16:16 Lactate Dehydrogenase 241 (120-246) U/L Lipids 05/30/25 Range/Units 04:05 Triglycerides 80 (<150) mg/dL Cholesterol 106 (0-200) mg/dL CBC 05/30/25 Range/Units 04:05 WBC 9.6 (4.5-10.0) K/mm3 RBC 3.94 L (4.2-5.4) M/mm3 Hgb 9.6 L (12.0-15.0) g/dL Hct 33.0 L (37.0-47.0) % Plt Count 197 (150-375) k/mm3 Lymph # (Auto) 1.08 (0.9-3.2) K/mm3 Barnes # (Auto) 1.1 H (0.1-0.6) K/mm3 Eos # (Auto) 0.1 (0-0.3) K/mm3 Baso # (Auto) 0.1 (0.0-0.1) K/mm3 Comprehensive Metabolic Panel 05/30/25 05/30/25 05/30/25 Range/Units 04:05 11:16 16:16 Sodium 129 L 133 L (137-145) mmol/L Potassium 2.6 L* 3.0 L 3.1 L (3.4-5.0) mmol/L Chloride 88 L 92 L (98-107) mmol/L Carbon Dioxide 35 H 33 H (22-30) mmol/L BUN 25 H 25 H (7-17) mg/dL Creatinine 1.30 H 1.35 H (0.7-1.0) mg/dL Glucose 102 101 (65-110) mg/dL Calcium 8.3 L 8.5 (8.4-10.2) mg/dL Intake and Output 0705/30/25 05/30/25 07:59 15:59 23:59 Intake Total 2000 480 Output Total 1025 900 Balance 975 -420 Intake: IV 1000 Sodium Chloride 0.9% IV 1,000 1000 ml @ 100 mls/hr IV CONT .Q10H [facility] Rx#:[id number] Oral 1000 480 Output: Urine 300 900 Catheter Urine 725 External/Condom 725 Patient Weight 05/30/25 23:59 Weight 101 kg
[2025-05-30] MEDS: cefTRIAXone 1 GM in SODIUM CHLORIDE 0.9% IV 50 ML 100 ML IVPB (18:00)
[2025-05-30] MEDS: POTASSIUM CHLORIDE 20 MEQ ER TABLET 40 MEQ PO (18:14)
[2025-05-30] MEDS: ROSUVASTATIN 10 MG TABLET PO (21:44)
[2025-05-31] VITALS (14 sets, daily range): BP systolic 98–105; BP diastolic 59–68; PULSE 62–127; RESP 18; TEMP 36–36.4; O2SAT 92–97
[2025-05-31] MEDS: LEVOTHYROXINE SODIUM 125 MCG TABLET BY MOUTH (06:40)
[2025-05-31] MEDS: AMIODARONE HCL 200 MG TABLET PO (08:31)
[2025-05-31] MEDS: EMPAGLIFLOZIN 10 MG TABLET PO (08:31)
[2025-05-31] MEDS: BUMETANIDE 1 MG TABLET PO ×2 (08:32→16:02)
[2025-05-31] MEDS: POTASSIUM CHLORIDE 20 MEQ ER TABLET PO ×2 (08:32→16:02)
[2025-05-31] MEDS: DOCUSATE SODIUM 100 MG CAPSULE PO ×2 (08:32→16:01)
--- NOTE | 2025-05-31 08:36 | P.PNIM_ITS ---
Progress Note: A&P Assessment and Plan (1) Chest pain: Code(s): R07.9 - Chest pain, unspecified Status: Acute Assessment and Plan: -Left chest pain, improving -Troponin negative x2 -Frequent coughing pain sounds more pleuritic but nontender to palpation - cardiology following, recommended outpatient ischemic eval (2) Abnormal finding on CT scan: Code(s): R93.89 - Abnormal findings on diagnostic imaging of other specified body structures Status: Acute Assessment and Plan: 05/29 Chest CTA showed No pulmonary embolus. No thoracic aortic dissection. Redemonstration of mediastinal lymphadenopathy, increased in size from prior examination. Increase in prominence of the mosaic attenuation of the bilateral lung henderson, for which follow-up nonemergent high-resolution CT is recommended, for further characterization. Redemonstration of mediastinal lymphadenopathy. Interval enlargement of the subcarinal lymph node, detected on prior study. - currently requiring 2L NC - if unable to wean O2, may benefit from inpatient pulmonology eval. If not, can be outpatient. (3) UTI (urinary tract infection): Qualifiers: Hematuria presence: without hematuria Urinary tract infection type: acute cystitis Qualified Code(s): N30.00 - Acute cystitis without hematuria Code(s): N39.0 - Urinary tract infection, site not specified Status: Acute Assessment and Plan: - on IV Rocephin - Culture and sensitivity pending - Stop IVF (4) Diastolic heart failure: Code(s): I50.30 - Unspecified diastolic (congestive) heart failure Status: Acute Assessment and Plan: -LE edema reportedly improving - cardiology consulted, recommended to continue Bumex BID, 1.5L fluid restriction (5) Paroxysmal atrial fibrillation: Code(s): I48.0 - Paroxysmal atrial fibrillation Status: Acute Assessment and Plan: - patient went into Afib 05/31 afternoon. Cardio aware. Ordered IV metoprolol PRN. -Continue amiodarone, started about 5 days ago. Noted that she became very fatigued after starting it, also increased edema -Continue Xarelto (6) Type 2 diabetes mellitus: Qualifiers: Diabetes mellitus complication status: without complication Diabetes mellitus mcc insulin use: without director long term care use Qualified Code(s): E11.9 - Type 2 diabetes mellitus without complications Code(s): E11.9 - Type 2 diabetes mellitus without complications Status: Acute Assessment and Plan: -Continue Kevin -Kobi platt HS -SSI -Hold metformin (7) Hypokalemia: Code(s): E87.6 - Hypokalemia Status: Acute Assessment and Plan: -Significant hypokalemia on admission. Improving. -Taking home bumex 1mg BID -Added spironolactone 12.5 daily -Schedule potassium 20meq BID, started on spironolactone -If remains low, consider renal losses (8) Pulmonary hypertension: Code(s): I27.20 - Pulmonary hypertension, unspecified Status: Acute Assessment and Plan: - may need left and right heart cath as outpatient per cardiology - may need home O2 eval Subjective Date/time seen: 05/31/25 08:36 Interval history: Patient seen and examined at bedside. Feeling somewhat better, still on oxygen. Review of Systems Review of Systems: All systems reviewed & are unremarkable except as noted in HPI and below Exam Narrative: General: NAD Eyes: EOMI ENT: neck supple Cardiovascular: Regular rate and rhythm Respiratory: Clear to auscultation, respirations even and unlabored on RA Gastrointestinal: Soft, non tender Genitourinary: no suprapubic tenderness Musculoskeletal: No edema Skin: warm, dry Neuro: Alert. Psych: Mood appropriate Objective Data Vital Signs Vital Signs: Vital Signs - 24 hr 05/30/25 08:43 05/30/25 10:00 05/30/25 11:38 Temperature 98.0 F Pulse Rate 75 77 68 Respiratory Rate 16 Blood Pressure 103/56 L Pulse Oximetry 100 Oxygen Delivery Oxygen Flow Rate Fraction of Inspired Oxygen 05/30/25 12:00 05/30/25 12:00 05/30/25 14:00 Temperature Pulse Rate 67 68 Respiratory Rate Blood Pressure Pulse Oximetry 100 Oxygen Delivery Nasal Cannula Oxygen Flow Rate 2 Fraction of Inspired Oxygen 05/30/25 16:00 05/30/25 16:00 05/30/25 19:41 Temperature 97.6 F 97.9 F Pulse Rate 70 67 65 Respiratory Rate 18 16 Blood Pressure 117/65 107/64 Pulse Oximetry 98 100 Oxygen Delivery Oxygen Flow Rate Fraction of Inspired Oxygen 05/30/25 20:00 05/30/25 20:05 05/30/25 21:40 Temperature Pulse Rate 66 65 Respiratory Rate 20 Blood Pressure Pulse Oximetry 90 96 Oxygen Delivery Nasal Cannula Nasal Cannula Oxygen Flow Rate 2 2 Fraction of Inspired Oxygen 05/30/25 21:43 05/30/25 23:56 05/31/25 00:00 Temperature 98.2 F Pulse Rate 68 67 68 Respiratory Rate 16 Blood Pressure 100/65 Pulse Oximetry 100 Oxygen Delivery Oxygen Flow Rate Fraction of Inspired Oxygen 05/31/25 04:00 05/31/25 07:34 05/31/25 08:30 Temperature 97.6 F Pulse Rate 62 100 Respiratory Rate 18 Blood Pressure 98/59 L Pulse Oximetry 96 Oxygen Delivery Oxygen Flow Rate Fraction of Inspired Oxygen 05/31/25 08:31 Temperature Pulse Rate 99 Respiratory Rate Blood Pressure Pulse Oximetry Oxygen Delivery Oxygen Flow Rate Fraction of Inspired Oxygen Intake/Output Intake/Output: Intake & Output 05/28/25 05/29/25 05/30/25 05/31/25 23:59 23:59 23:59 23:59 Intake Total 720 3070 240 Output Total 2325 1800 Balance 720 192 -1564 Meds/Results Medications: Active Medications Generic Name Dose Route Start Last Admin Trade Name Freq PRN Reason Stop Dose Admin Acetaminophen 650 mg 05/29/25 14:27 Acetaminophen 325 Mg Tablet PO Q4H PRN Mild Pain (1-3) or Fever Hydrocodone Bitart/Acetaminophen 1 tab 05/29/25 14:27 Hydrocodone/Acetaminophen (*Crx) 5-325 Mg Tablet PO Q4H PRN Moderate Pain (4-6) Amiodarone HCl 200 mg 05/31/25 09:00 05/31/25 08:31 Amiodarone Hcl 200 Mg Tablet PO 200 mg DAILY KERLINE Administration Bumetanide 1 mg 05/30/25 09:00 05/31/25 08:32 Bumetanide 1 Mg Tablet PO 1 mg BID KERLINE Administration Dextrose 12.5 gm 05/29/25 23:04 Dextrose 50% 25 Gm/50 Ml Syringe IV PUSH PRN PRN Hypoglycemia Protocol Docusate Sodium 100 mg 05/29/25 17:00 05/31/25 08:32 Docusate Sodium 100 Mg Capsule PO 100 mg BID KERLINE Administration Empagliflozin 10 mg 05/30/25 09:00 05/31/25 08:31 Empagliflozin 10 Mg Tablet PO 10 mg DAILY KERLINE Administration Fluoxetine HCl 40 mg 05/30/25 09:00 05/31/25 08:31 Fluoxetine Hcl 20 Mg Capsule PO 40 mg DAILY KERLINE Administration Gabapentin 600 mg 05/30/25 16:32 05/30/25 21:44 Gabapentin 300 Mg Capsule PO 600 mg TID PRN Administration RLS Glucagon 1 mg 05/29/25 23:04 Glucagon For Inj 1 Mg Vial IM PRN PRN Hypoglycemia Protocol Glucose 15 gm 05/29/25 23:04 Glucose Oral Gel 15 Gm Of Glucse In 37.5 Gm Tube PO PRN PRN Hypoglycemia Protocol Ceftriaxone Sodium 1 gm/ 50 mls @ 100 mls/hr 05/30/25 19:00 05/30/25 18:00 Sodium Chloride IVPB 100 mls/hr Q24H KERLINE Administration Dextrose 1,000 mls @ 100 mls/hr 05/29/25 23:04 Dextrose 5% 1,000 Ml IVPB PRN PRN Hypoglycemia Protocol Insulin Aspart 2 - 5 units 05/30/25 08:00 05/31/25 08:03 Insulin Aspart (*Bkc) 100 Units/Ml SUB-Q Not Given TIDWM [facility] Protocol Insulin Aspart 1 - 2 units 05/30/25 21:00 05/30/25 21:55 Insulin Aspart (*Bkc) 100 Units/Ml SUB-Q Not Given HS [facility] Protocol Levothyroxine Sodium 125 mcg 05/30/25 06:30 05/31/25 06:40 Levothyroxine Sodium 125 Mcg Tablet BY MOUTH 125 mcg DAILY@0630 KERLINE Administration Morphine Sulfate 2 mg 05/29/25 14:27 Morphine Sulfate (*Crx) 2 Mg/Ml Inj IV PUSH Q5M PRN Pain Rated 4-6 Nitroglycerin 0.4 mg 05/29/25 14:27 Nitroglycerin Sl 0.4 Mg Tablet SUBLINGUAL Q5MIN PRN Chest Pain Ondansetron HCl 4 mg 05/29/25 14:08 05/30/25 06:47 Ondansetron Inj 4 Mg/2 Ml Vial IV PUSH 4 mg Q4H PRN Administration Nausea Perflutren Lipid Microsphere 0 ml 05/29/25 14:27 Perflutren Lipid Microspheres 1.5 Ml Vial Diluted To 10 Ml Total Volume IV PUSH 06/01/25 14:30 ONCE PRN adequate visualization Protocol Phenazopyridine HCl 100 mg 05/30/25 15:23 05/30/25 15:31 Phenazopyridine Hcl 100 Mg Tablet PO 06/01/25 15:24 100 mg Q8HR PRN Administration painful urination Potassium Chloride 20 meq 05/31/25 09:00 05/31/25 08:32 Potassium Chloride 20 Meq Er Tablet PO 20 meq BID KERLINE Administration Pramipexole Dihydrochloride 1 mg 05/30/25 16:32 05/30/25 16:44 Pramipexole 1 Mg Tablet PO 1 mg TID PRN Administration RLS Rivaroxaban 20 mg 05/29/25 21:50 05/30/25 16:25 Rivaroxaban 20 Mg Tablet PO 20 mg DAILY@1700 KERLINE Administration Rosuvastatin Calcium 10 mg 05/29/25 21:50 05/30/25 21:44 Rosuvastatin 10 Mg Tablet PO 10 mg HS KERLINE Administration Spironolactone 12.5 mg 05/30/25 15:00 05/31/25 08:31 Spironolactone 12.5 Mg Tablet PO 12.5 mg DAILY KERLINE Administration Radiology Results: ITS Impressions Chest X-Ray 05/29/25 11:52 IMPRESSION: Interstitial thickening, without focal infiltrate or effusion. Chest CTA 05/29/25 13:30 IMPRESSION: No pulmonary embolus. No thoracic aortic dissection. Redemonstration of mediastinal lymphadenopathy, increased in size from prior examination. Increase in prominence of the mosaic attenuation of the bilateral lung henderson, for which follow-up nonemergent high-resolution CT is recommended, for further characterization. Redemonstration of mediastinal lymphadenopathy. Interval enlargement of the subcarinal lymph node, detected on prior study. Labs Labs: Laboratory Results - last 24 hr 05/30/25 05/30/25 05/30/25 11:14 11:16 16:16 Sodium 133 L Potassium 3.0 L 3.1 L Chloride 92 L Carbon Dioxide 33 H Anion Gap 8 BUN 25 H Creatinine 1.35 H Estim Creat Clear Calc 33 Estimated GFR 38 L Glucose 101 POC Capillary Glucose 78 Calcium 8.5 Magnesium 2.3 Lactate Dehydrogenase 241 05/30/25 05/30/25 05/31/25 16:18 20:32 07:11 Sodium Potassium Chloride Carbon Dioxide Anion Gap BUN Creatinine Estim Creat Clear Calc Estimated GFR Glucose POC Capillary Glucose 89 131 H 101 Calcium Magnesium Lactate Dehydrogenase Quality VTE Prophylaxis VTE prophylaxis: pharmacologic ordered
[2025-05-31 09:09] LABS: Hematocrit 35.2 % (37.0-47.0); Hemoglobin 10.3 g/dL (12.0-15.0); Immature Granulocyte Percent A 0.3 % (0-0.5); Lymphocytes Absolute Auto 1.00 K/mm3 (0.9-3.2); Mean Corpuscular HGB Conc 29.3 g/dl (32-36); Mean Corpuscular Hemoglobin 24.7 pg (26-34); Mean Corpuscular Volume 84.4 fl (80-100); Nucleated Red Blood Cells Absolute Auto 0.000 K/mm3 (0.0-0.012); Nucleated Red Blood Cells Perc 0.0 % (0.0-0.2); Platelet Count Result 205 k/mm3 (150-375); Red Blood Count 4.17 M/mm3 (4.2-5.4); White Blood Count 9.2 K/mm3 (4.5-10.0)
[2025-05-31 09:35] LABS: Hypochromasia 1+; Magnesium 2.1 mg/dL (1.6-2.3); Ovalocytes 1+; Schistocytes None Seen
--- NOTE | 2025-05-31 09:37 | PM.PNCARD ---
Progress Note: A&P Assessment and Plan (1) Chest pain: Code(s): R07.9 - Chest pain, unspecified Status: Acute (2) Acute exacerbation of chronic heart failure: Code(s): I50.9 - Heart failure, unspecified Status: Acute (3) Paroxysmal atrial fibrillation: Code(s): I48.0 - Paroxysmal atrial fibrillation Status: Acute (4) Pulmonary hypertension: Code(s): I27.20 - Pulmonary hypertension, unspecified Status: Acute Plan 79-year-old woman with chronic diastolic heart failure, paroxysmal atrial fibrillation (now on amiodarone as well as Xarelto), severe pulmonary hypertension (by echo), diabetes, and obstructive sleep apnea is presented with left-sided chest pain Chest pain -ruled out for ME -clinically appears to be pleuritic in nature -can follow up outpatient for possible ischemic eval-she wants to transition her care from [facility] to our practice. We will arrange for outpatient follow-up in our office. Chronic diastolic heart failure -continue Bumex 1 mg p.o. b.i.d. -fluid restriction to 1.5 L per day while hospitalized -Renal function improved today. Continue daily BMP. -on spironolactone for potassium correction. Also on supplemental KCL -Jardiance 10 mg p.o. daily Severe pulmonary hypertension -if she continues to have significant shortness of breath and exertional symptoms despite optimal diuresis, right and left heart catheterization may be warranted Paroxysmal atrial fibrillation -continue amiodarone 200 mg p.o. daily and Xarelto 20 mg every evening with dinner Obstructive sleep apnea -recommend CPAP compliance Subjective Date/time seen: 05/31/25 09:37 Interval history: Cardiology follow-up visit Date of service 05/31/2025: Feels okay today. Still has shortness of breath with activity. Denies any orthopnea, swelling, palpitations. Review of Systems Cardiovascular: Cardiovascular: Reports as per HPI Respiratory: Respiratory: Reports as per HPI Exam Const: General: comfortable HENMT: Mouth: Yes moist mucous membranes Eyes: EOM: EOMs intact bilaterally Neck: Neck: no JVD Resp: Effort & Inspection: normal respiratory effort Auscultation: rales Cardio: Rate: regular rate Rhythm: regular rhythm Skin: General skin exam: ecchymosis and erythema Neuro: Speech: normal speech Extrem: General: no pedal edema Objective Data Vital Signs Vital Signs: Vital Signs - 24 hr 05/30/25 10:00 05/30/25 11:38 05/30/25 12:00 Temperature 36.7 C Pulse Rate 77 68 Respiratory Rate 16 Blood Pressure 103/56 L Pulse Oximetry 100 100 Oxygen Delivery Nasal Cannula Oxygen Flow Rate 2 Fraction of Inspired Oxygen 05/30/25 12:00 05/30/25 14:00 05/30/25 16:00 Temperature 36.4 C Pulse Rate 67 68 70 Respiratory Rate 18 Blood Pressure 117/65 Pulse Oximetry 98 Oxygen Delivery Oxygen Flow Rate Fraction of Inspired Oxygen 05/30/25 16:00 05/30/25 19:41 05/30/25 20:00 Temperature 36.6 C Pulse Rate 67 65 66 Respiratory Rate 16 Blood Pressure 107/64 Pulse Oximetry 100 Oxygen Delivery Oxygen Flow Rate Fraction of Inspired Oxygen 05/30/25 20:05 05/30/25 21:40 05/30/25 21:43 Temperature Pulse Rate 65 68 Respiratory Rate 20 Blood Pressure Pulse Oximetry 90 96 Oxygen Delivery Nasal Cannula Nasal Cannula Oxygen Flow Rate 2 2 Fraction of Inspired Oxygen 05/30/25 23:56 05/31/25 00:00 05/31/25 04:00 Temperature 36.8 C Pulse Rate 67 68 62 Respiratory Rate 16 Blood Pressure 100/65 Pulse Oximetry 100 Oxygen Delivery Oxygen Flow Rate Fraction of Inspired Oxygen 05/31/25 07:34 05/31/25 08:30 05/31/25 08:31 Temperature 36.4 C Pulse Rate 100 99 Respiratory Rate 18 Blood Pressure 98/59 L Pulse Oximetry 96 Oxygen Delivery Oxygen Flow Rate Fraction of Inspired Oxygen Intake/Output Intake/Output: Intake & Output 05/28/25 05/29/25 05/30/25 05/31/25 23:59 23:59 23:59 23:59 Intake Total 720 3070 240 Output Total 2325 1800 Balance 720 420 -1560 Meds/Results Medications: Active Medications Generic Name Dose Route Start Last Admin Trade Name Freq PRN Reason Stop Dose Admin Acetaminophen 650 mg 05/29/25 14:27 Acetaminophen 325 Mg Tablet PO Q4H PRN Mild Pain (1-3) or Fever Hydrocodone Bitart/Acetaminophen 1 tab 05/29/25 14:27 Hydrocodone/Acetaminophen (*Crx) 5-325 Mg Tablet PO Q4H PRN Moderate Pain (4-6) Amiodarone HCl 200 mg 05/31/25 09:00 05/31/25 08:31 Amiodarone Hcl 200 Mg Tablet PO 200 mg DAILY KERLINE Administration Bumetanide 1 mg 05/30/25 09:00 05/31/25 08:32 Bumetanide 1 Mg Tablet PO 1 mg BID KERLINE Administration Dextrose 12.5 gm 05/29/25 23:04 Dextrose 50% 25 Gm/50 Ml Syringe IV PUSH PRN PRN Hypoglycemia Protocol Docusate Sodium 100 mg 05/29/25 17:00 05/31/25 08:32 Docusate Sodium 100 Mg Capsule PO 100 mg BID KERLINE Administration Empagliflozin 10 mg 05/30/25 09:00 05/31/25 08:31 Empagliflozin 10 Mg Tablet PO 10 mg DAILY KERLINE Administration Fluoxetine HCl 40 mg 05/30/25 09:00 05/31/25 08:31 Fluoxetine Hcl 20 Mg Capsule PO 40 mg DAILY KERLINE Administration Gabapentin 600 mg 05/30/25 16:32 05/30/25 21:44 Gabapentin 300 Mg Capsule PO 600 mg TID PRN Administration RLS Glucagon 1 mg 05/29/25 23:04 Glucagon For Inj 1 Mg Vial IM PRN PRN Hypoglycemia Protocol Glucose 15 gm 05/29/25 23:04 Glucose Oral Gel 15 Gm Of Glucse In 37.5 Gm Tube PO PRN PRN Hypoglycemia Protocol Ceftriaxone Sodium 1 gm/ 50 mls @ 100 mls/hr 05/30/25 19:00 05/30/25 18:00 Sodium Chloride IVPB 100 mls/hr Q24H KERLINE Administration Dextrose 1,000 mls @ 100 mls/hr 05/29/25 23:04 Dextrose 5% 1,000 Ml IVPB PRN PRN Hypoglycemia Protocol Insulin Aspart 2 - 5 units 05/30/25 08:00 05/31/25 08:03 Insulin Aspart (*Bkc) 100 Units/Ml SUB-Q Not [facility] Protocol Insulin Aspart 1 - 2 units 05/30/25 21:00 05/30/25 21:55 Insulin Aspart (*Bkc) 100 Units/Ml SUB-Q Not Given HS KERLINE Protocol Levothyroxine Sodium 125 mcg 05/30/25 06:30 05/31/25 06:40 Levothyroxine Sodium 125 Mcg Tablet BY MOUTH 125 mcg DAILY@0630 KERLINE Administration Morphine Sulfate 2 mg 05/29/25 14:27 Morphine Sulfate (*Crx) 2 Mg/Ml Inj IV PUSH Q5M PRN Pain Rated 4-6 Nitroglycerin 0.4 mg 05/29/25 14:27 Nitroglycerin Sl 0.4 Mg Tablet SUBLINGUAL Q5MIN PRN Chest Pain Ondansetron HCl 4 mg 05/29/25 14:08 05/30/25 06:47 Ondansetron Inj 4 Mg/2 Ml Vial IV PUSH 4 mg Q4H PRN Administration Nausea Perflutren Lipid Microsphere 0 ml 05/29/25 14:27 Perflutren Lipid Microspheres 1.5 Ml Vial Diluted To 10 Ml Total Volume IV PUSH 06/01/25 14:30 ONCE PRN adequate visualization Protocol Phenazopyridine HCl 100 mg 05/30/25 15:23 05/30/25 15:31 Phenazopyridine Hcl 100 Mg Tablet PO 06/01/25 15:24 100 mg Q8HR PRN Administration painful urination Potassium Chloride 20 meq 05/31/25 09:00 05/31/25 08:32 Potassium Chloride 20 Meq Er Tablet PO 20 meq BID KERLINE Administration Pramipexole Dihydrochloride 1 mg 05/30/25 16:32 05/30/25 16:44 Pramipexole 1 Mg Tablet PO 1 mg TID PRN Administration RLS Rivaroxaban 20 mg 05/29/25 21:50 05/30/25 16:25 Rivaroxaban 20 Mg Tablet PO 20 mg DAILY@1700 KERLINE Administration Rosuvastatin Calcium 10 mg 05/29/25 21:50 05/30/25 21:44 Rosuvastatin 10 Mg Tablet PO 10 mg HS KERLINE Administration Spironolactone 12.5 mg 05/30/25 15:00 05/31/25 08:31 Spironolactone 12.5 Mg Tablet PO 12.5 mg DAILY KERLINE Administration Radiology Results: ITS Impressions Chest X-Ray 05/29/25 11:52 IMPRESSION: Interstitial thickening, without focal infiltrate or effusion. Chest CTA 05/29/25 13:30 IMPRESSION: No pulmonary embolus. No thoracic aortic dissection. Redemonstration of mediastinal lymphadenopathy, increased in size from prior examination. Increase in prominence of the mosaic attenuation of the bilateral lung henderson, for which follow-up nonemergent high-resolution CT is recommended, for further characterization. Redemonstration of mediastinal lymphadenopathy. Interval enlargement of the subcarinal lymph node, detected on prior study. Labs Labs: Laboratory Results - last 24 hr 05/30/25 05/30/25 05/30/25 11:14 11:16 16:16 WBC RBC Hgb Hct MCV MCH MCHC RDW Plt Count MPV Immature Gran % (Auto) Neut % (Auto) Lymph % (Auto) Crowley % (Auto) Eos % (Auto) Baso % (Auto) Lymph # (Auto) Crowley # (Auto) Eos # (Auto) Baso # (Auto) Abs Immat Gran (auto) Absolute Neuts (auto) Absolute Nucleated RBC Nucleated RBC % Sodium 133 L Potassium 3.0 L 3.1 L Chloride 92 L Carbon Dioxide 33 H Anion Gap 8 BUN 25 H Creatinine 1.35 H Estim Creat Clear Calc 33 Estimated GFR 38 L Glucose 101 POC Capillary Glucose 78 Calcium 8.5 Magnesium 2.3 Lactate Dehydrogenase 241 05/30/25 05/30/25 05/31/25 16:18 20:32 07:11 WBC RBC Hgb Hct MCV MCH MCHC RDW Plt Count MPV Immature Gran % (Auto) Neut % (Auto) Lymph % (Auto) Crowley % (Auto) Eos % (Auto) Baso % (Auto) Lymph # (Auto) Crowley # (Auto) Eos # (Auto) Baso # (Auto) Abs Immat Gran (auto) Absolute Neuts (auto) Absolute Nucleated RBC Nucleated RBC % Sodium Potassium Chloride Carbon Dioxide Anion Gap BUN Creatinine Estim Creat Clear Calc Estimated GFR Glucose POC Capillary Glucose 89 131 H 101 Calcium Magnesium Lactate Dehydrogenase 05/31/25 09:00 WBC 9.2 RBC 4.17 L Hgb 10.3 L Hct 35.2 L MCV 84.4 MCH 24.7 L MCHC 29.3 L RDW 21.0 H Plt Count 205 MPV 10.4 Immature Gran % (Auto) 0.3 Neut % (Auto) 74.6 H Lymph % (Auto) 10.9 L Crowley % (Auto) 7.8 Eos % (Auto) 5.5 H Baso % (Auto) 0.9 Lymph # (Auto) 1.00 Crowley # (Auto) 0.7 H Eos # (Auto) 0.5 H Baso # (Auto) 0.1 Abs Immat Gran (auto) 0.03 Absolute Neuts (auto) 6.9 H Absolute Nucleated RBC 0.000 Nucleated RBC % 0.0 Sodium Potassium Chloride Carbon Dioxide Anion Gap BUN Creatinine Estim Creat Clear Calc Estimated GFR Glucose POC Capillary Glucose Calcium Magnesium 2.1 Lactate Dehydrogenase Quality VTE Prophylaxis VTE prophylaxis: mechanical ordered and pharmacologic ordered
[2025-05-31 09:39] LABS: Anion Gap 8 mmol/L (4-12); Blood Urea Nitrogen 18 mg/dL (7-17); Calcium 8.8 mg/dL (8.4-10.2); Carbon Dioxide 32 mmol/L (22-30); Chloride 92 mmol/L (98-107); Estimated CRCL calculation 44 ml/min; Estimated Glomerular Filt Rate 53; Glucose 127 mg/dL (65-110); Potassium 3.1 mmol/L (3.4-5.0); Sodium 132 mmol/L (137-145)
--- NOTE | 2025-05-31 11:04 | PCPTNOTE ---
Spoke with Current hospitalist Laisha Gilbert regarding bedrest orders. Per hospitalist, OK to remove bedrest orders for safe participation with therapy. Will notify nursing.
--- NOTE | 2025-05-31 14:29 | P.CDI_ITS ---
CDI Query Clarification Request Please clarify type and acuity of heart failure if known. * Acute * Chronic * Acute on Chronic * Unknown * Systolic * Diastolic * Combined Systolic and Diastolic * Unknown The medical chart reflects the following: Hospitalist documented: (4) Diastolic heart failure: Code(s): I50.30 - Unspecified diastolic (congestive) heart failure Status: Acute Assessment and Plan: Continue Jardiance, Crestor, Xarelto, Bumex 1mg BID LE edema reportedly improving --Stop fluids, continue bumex 1mg BID, add spironolactone 12.5mg daily --Follows with cardiology outpatient, who has told her she has a life expectancy of about 6 months to a year due to pulmonary HTN and heart failure and valvular disease --Continue to monitor on tele --Cardiology consult for discharge medication recommendations Cardiology documented: (2) Acute exacerbation of chronic heart failure: Code(s): I50.9 - Heart failure, unspecified Status: Acute Chronic diastolic heart failure -continue Bumex 1 mg p.o. b.i.d. -fluid restriction to 1.5 L per day while hospitalized -Renal function improved today. Continue daily BMP. -on spironolactone for potassium correction. Also on supplemental KCL -Jardiance 10 mg p.o. daily Severe pulmonary hypertension -if she continues to have significant shortness of breath and exertional symptoms despite optimal diuresis, right and left heart catheterization may be warranted Paroxysmal atrial fibrillation -continue amiodarone 200 mg p.o. daily and Xarelto 20 mg every evening with dinner 05/29 BNP: 611 <Estelita Amanda RN - Last Filed: 05/31/25 14:32> Clarified Diagnosis Clarified Diagnosis: chronic diastolic heart failure <ANA Frank - Last Filed: 05/31/25 16:13>
--- NOTE | 2025-05-31 14:33 | P.CDI_ITS ---
CDI Query Clarification Request Patient with a BMI of 42.4 please provide a diagnosis to accompany this finding: * Overweight * Obesity * Morbid Obesity * Other/Unknown <Estelita Amanda RN - Last Filed: 05/31/25 14:33> Clarified Diagnosis Clarified Diagnosis: morbid obesity <ANA Frank - Last Filed: 05/31/25 16:13>
--- NOTE | 2025-05-31 15:49 | ECG_ITS ---
Test Date: 2025-05-31 16:26:01 Measurements Intervals [place] Rate: 98 P: 0 IL: 0 QRS: 3 QRSD: 100 T: -6 QT: 410 QTc: 525 Interpretive Statements ATRIAL FIBRILLATION ST DEVIATION AND T-WAVE ABNORMALITY, CONSIDER ISCHEMIA Electronically Signed On 06-01-2025 17:11:57 CDT by Alan Christopher D.O
[2025-05-31] MEDS: GABAPENTIN 300 MG CAPSULE 600 MG PO (16:01)
[2025-05-31] MEDS: PHENAZOPYRIDINE HCL 100 MG TABLET PO (16:01)
[2025-05-31] MEDS: RIVAROXABAN 20 MG TABLET PO (16:02)
[2025-05-31] MEDS: PRAMIPEXOLE 1 MG TABLET PO (16:02)
--- NOTE | 2025-05-31 16:15 | PC.NURSE ---
Transfer received from IMU per wheelchair.
--- NOTE | 2025-05-31 16:24 | PC.NURSE ---
Pt transferred to room 300 at 1616. Report given to KATHYA Rosales.
[2025-05-31] MEDS: cefTRIAXone 1 GM in SODIUM CHLORIDE 0.9% IV 50 ML 100 ML IVPB (18:16)
[2025-05-31] MEDS: ROSUVASTATIN 10 MG TABLET PO (20:36)
--- NOTE | 2025-05-31 21:54 | P.CONPL_ITS ---
Assessment and Plan Assessment and plan (1) Difficulty swallowing: Code(s): R13.10 - Dysphagia, unspecified Status: Acute Assessment and Plan: She has had ongoing difficulty swallowing for several months if not longer. She had a swallow evaluation several years ago. She is concerned that her abnormal swallow may be contributing to her coughing and shortness of breath. Silent aspiration can contribute to interstitial changes on chest CT. (2) ILD (interstitial lung disease): Code(s): J84.9 - Interstitial pulmonary disease, unspecified Status: Acute Assessment and Plan: Not sure if she has actual interstitial lung disease but she has interstitial changes on her CTA. The best imaging for interstitial lung disease is a high- resolution chest CT. This can be scheduled as an outpatient. She just had a chest CT on 05/29, does not have a pulmonary embolus which was really the purpose of that imaging. She does not have an infiltrate. She does have some hilar and mediastinal lymphadenopathy with the largest lymph node 3 cm. She does not have symptoms consistent with a malignant process. This could easily be part of her sarcoid complex. She needs outpatient PFTs, walk evaluation, pulmonary rehab; I will order hypersensitivity pneumonitis profile, hypersensitivity pneumonitis can mask parade as interstitial lung disease. (3) Pulmonary hypertension: Code(s): I27.20 - Pulmonary hypertension, unspecified Status: Acute Assessment and Plan: She has elevated pulmonary artery pressures on her echocardiogram and may have several contributing factors including her diastolic heart failure, underlying sarcoid which appeared to be stable for several decades, untreated obstructive sleep apnea. Her PA systolic pressure on May 18 was 90 mmHg, and this is definitely contributing to her shortness of breath. Her JUDY was negative on 07/16/2019 but this was only the anti nuclear antibody test itself, not a panel of antibodies. I will send an JUDY profile; her pulmonary hypertension is likely secondary, not primary. (4) CARLOS (obstructive sleep apnea): Code(s): G47.33 - Obstructive sleep apnea (adult) (pediatric) Status: Acute Assessment and Plan: not treated. (5) SOB (shortness of breath): Code(s): R06.02 - Shortness of breath Status: Acute Assessment and Plan: worse with exertion Plan plan: 1) She would benefit by having oxygen at night to lower pulmonary artery pressure. Treating underlying causes for her pulmonary hypertension would help reduce the pressure but she does not want to be treated for obstructive sleep apnea. 2) Out patient pulmonary function testing, high-resolution chest CT, testing to rule out secondary causes for ILD. It is not clear what type of ILD she may have, and I am wondering if mosaic attenuation seen on her chest CT really was pulmonary edema or air trapping. 3) She has no history of asthma, she has never been on inhalers. She may benefit from a trial of ICS/ LABA. This is an empiric treatment to see if she may have some benefit from a trial. I do not expect this to produce a big improvement but she has been in the hospital multiple time since March. Trial of Advair HFA 114/21 TWO puffs bid. This auto substituted for Breo 100. 4) JUDY panel, hypersensitivity pneumonitis profile; she does not have sufficient sputum to send for studies. She will need a home O2 study prior to discharge. I will continue to follow with you. She is complicated patient with mixed cardiac and pulmonary issues. History of Present Illness History of Present Illness Consult date: 06/01/25 Requesting physician: Dianna Flores APRN Chief complaint: Hypoxia, mosaic attentuation on imaging Narrative: pt was seen June 01, 2025 at 11:10 am Room 300 NEW: Nikole Osorio is a 79-year-old female with no history of smoking, had biopsy proven sarcoid in 1998 at [facility] right lung. She said that the surgeon tried to remove all of it but some was left. She had resolution of symptoms and has not had active sarcoid for decades. She does have congestive heart failure and history of atrial fibrillation. She has had several admissions in the last few months, March 05 was in the ER, April 05 through April 08 was admitted with shortness of breath and cough, May through May 09 diastolic congestive heart failure with adjustment of Bumex, electrolytes were replaced. She returned [phone] with shortness of breath cough and hypoxia. Now she is readmitted but this time she also had substernal chest pain radiating to the left shoulder but ruled out for myocardial infarction. She tells me that she does not have cardiac reasons for these recurrent episodes of shortness of breath and her cardiac status is stabilized. She has no history of asthma, has not used inhalers. Her chest x-ray showed interstitial thickening and the CT a on 05/29 showed interstitial changes and mediastinal/hilar lymphadenopathy with the largest lymph node in the subcarinal area. She has not been told she had interstitial lung disease. This can represent her underlying sarcoidosis, the interstitial changes and the enlarged lymph node. She has not had any weight loss. Her exercise tolerance is poor. She uses a walker or a Rollator. She has not been able to go up a flight of stairs for several years. Her CXR 05/29/25 shows : IMPRESSION: Interstitial thickening, without focal infiltrate or effusion. She had a CTA the same day, showed No evidence of pulmonary embolus, aortic dissection, or aortic aneurysm. Stable extensive chronic interstitial disease in the lungs. Stable mediastinal/hilar lymphadenopathy, largest node in the subcarinal region. Dilated main pulmonary artery suggests pulmonary artery hypertension. chest CT showed extensive chronic I LD and stable mediastinal/hilar lymphadenopathy with the largest node in the subcarinal area. 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 Tobacco: never smoked. Grew up in smoke. smoked, quit several years ago. He lives in a Memory Care Unit, and she in the Assisted Living portion of the same facility in [place], [place]. Soc: , 5 grown children. She is the eldest of 8 children. One sibling from colon cancer. DATA * 05/17/25 CTA Findings: Mediastinal and bilateral hilar lymphadenopathy is similar to prior exam, with largest node in the subcarinal region. There is no filling defect in the pulmonary arterial tree to suggest pulmonary embolus. Main pulmonary artery is dilated to 4.4 cm in diameter. There is no evidence of aortic dissection or aneurysm. There is no evidence of pleural or pericardial effusion. Extensive chronic interstitial disease with areas of scarring and architectural distortion lungs are similar to prior exam. No suspicious pulmonary nodule or consolidation. Calcified left upper lobe granuloma present. Images through the upper abdomen reveal no abnormalities. Impression: No evidence of pulmonary embolus, aortic dissection, or aortic aneurysm. Stable extensive chronic interstitial disease in the lungs. Stable mediastinal/hilar lymphadenopathy, largest node in the subcarinal region. Dilated main pulmonary artery suggests pulmonary artery hypertension. * 04/05/25; EKG :SINUS RHYTHM, INCOMPLETE RIGHT BUNDLE BRANCH BLOCK VOLTAGE CRITERIA FOR LVH ST DEVIATION AND MODERATE T-WAVE ABNORMALITY IN ANT/INF LEADS, CONSIDER ISCHEMIA BASELINE ARTIFACT- I, II, AVR, AVL ABNORMAL ECG Compared to ECG 07/01/2024 09:00:31 ATRIAL FIBRILLATION NO LONGER PRESENT * 05/18/2025; echo . The left ventricle is normal in size and systolic function. The left ventricular ejection fraction is visually estimated to be 60-65%. 2. The right ventricle is dilated with reduced systolic function. 3. There is ventricular septal flattening suggestive of volume and pressure overload. 4. There is severe biatrial enlargement. 5. Dilated inferior vena cava with <50% collapse upon inspiration consistent with significantly elevated right atrial pressure, 15 mmHg. 6. There is severe pulmonary hypertension with estimated PASP of 90 mmHg. Review of Systems 2 Review of Systems: She reports leg swelling at times, had a visit to an ER due to this problem but did not receive any treatment that helped her. She has difficulty swallowing at times, feels that food does not go down correctly. She is worried that her abnormal swallowing may be contributing to her coughing and breathing problems. She has had upper and lower endoscopies which were relatively unremarkable All systems reviewed & are unremarkable except as noted in HPI and below PMFSH Past Medical History Medical History (Updated 06/01/25 @ 12:07 by Ana Cardona MD) History of sarcoidosis Pulmonary hypertension Paroxysmal atrial fibrillation Chronic anemia Diastolic heart failure Echocardiogram June 2024: Difficult study with LVH, EF of 50 55%, grade 1 diastolic dysfunction and moderate left atrial enlargement with mild pulmonary hypertension Other hyperlipidemia Restless leg syndrome Hx of arteriovenous malformation (AVM) Iron deficiency anemia CARLOS (obstructive sleep apnea) Intolerant to CPAP Post-menopausal Depression Colonoscopy planned Gastro-esophageal reflux Type 2 diabetes mellitus Hypothyroidism Essential hypertension Surgical History Surgical History Status post cataract extraction of both eyes with insertion of intraocular lens History of right shoulder replacement History of toe surgery History of arthroscopy of knee Family History Family History Mother Family history of lung cancer Family history of lung disease Father Family history of arthritis Family history of heart disease in male family member before age 55 Family history of cardiovascular disease Sibling Family history of malignant neoplasm of breast in first degree relative Carcinoma of colon Breast cancer Daughter Breast cancer Social History Social History (Updated 05/17/25 @ 15:04 by Chula Bui PA-C) Social History: Patient moved to [facility] March 2025. She is a lifelong nonsmoker and denies any history of alcohol use. Her and her raised 1 son and 4 daughters. 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 Gender identity (if verbalized by the patient): Female Spiritual care concerns: No Meds Home Medications and Allergies Home Medications ?Medication ?Instructions ?Recorded ?Confirmed ?Type rivaroxaban 20 mg tablet (Xarelto) 20 mg PO DAILY 10/14/19 05/29/25 History vitamins A,C,K-qrbn-jnwova 4,296 1 cap PO BID 11/08/20 05/29/25 History mcg-226 mg-90 mg capsule (PreserVision AREDS) acetaminophen 650 mg 1,300 mg PO Q12H pain 05/05/22 05/29/25 History tablet,extended release gabapentin 600 mg tablet 600 mg PO TID #270 tabs 09/03/24 05/29/25 Rx metformin 500 mg tablet 500 mg PO BID #180 tabs 11/05/24 05/29/25 Rx levothyroxine 125 mcg tablet See Rx Instructions .Route 11/30/24 05/29/25 Rx .COMPLEX #90 tabs rosuvastatin 10 mg tablet (Crestor) 10 mg PO DAILY #90 tabs 11/30/24 05/29/25 Rx fluoxetine 20 mg capsule (Prozac) 40 mg (2 x 20 mg) PO DAILY #180 12/17/24 05/29/25 Rx caps pramipexole 1 mg tablet 1 mg PO TID #270 tabs 02/09/25 05/29/25 Rx omeprazole 20 mg capsule,delayed 20 mg PO BID #180 caps 02/18/25 05/29/25 Rx release ferrous sulfate 325 mg (65 mg 325 mg PO EVERY OTHER DAY 05/07/25 05/29/25 History iron) tablet (FeroSul) potassium chloride 20 mEq 20 meq PO BID 05/07/25 05/29/25 History tablet,extended release bumetanide 2 mg tablet 1 mg (1/2 x 2 mg) PO BID #90 tabs 05/20/25 05/29/25 Rx amiodarone 200 mg tablet 200 mg PO Q12H 05/29/25 05/29/25 History empagliflozin 10 mg tablet 10 mg PO DAILY 05/29/25 05/29/25 History (Jardiance) Allergies Allergy/AdvReac Type Severity Reaction Status Date / Time Sulfa (Sulfonamide Allergy Intermediate Rash Verified 05/29/25 11:38 Antibiotics) nitrofurantoin (From Allergy itching Verified 05/29/25 11:38 Macrobid) Vital Signs Vital Signs - 24 hr 05/30/25 23:56 05/31/25 00:00 05/31/25 04:00 Temperature 36.8 C Pulse Rate 67 68 62 Respiratory Rate 16 Blood Pressure 100/65 Pulse Oximetry 100 Oxygen Delivery Oxygen Flow Rate 05/31/25 07:34 05/31/25 08:00 05/31/25 08:00 Temperature 36.4 C Pulse Rate 100 102 H Respiratory Rate 18 Blood Pressure Pulse Oximetry 96 97 Oxygen Delivery Nasal Cannula Oxygen Flow Rate 2 05/31/25 08:30 05/31/25 08:31 05/31/25 11:06 Temperature Pulse Rate 99 Respiratory Rate Blood Pressure 98/59 L Pulse Oximetry 92 Oxygen Delivery Nasal Cannula Oxygen Flow Rate 2 05/31/25 11:12 05/31/25 11:22 05/31/25 12:00 Temperature Pulse Rate 116 H Respiratory Rate Blood Pressure Pulse Oximetry Oxygen Delivery Nasal Cannula Nasal Cannula Oxygen Flow Rate 2 2 05/31/25 16:00 05/31/25 16:23 05/31/25 17:30 Temperature Pulse Rate 127 H 98 Respiratory Rate 18 Blood Pressure Pulse Oximetry 92 Oxygen Delivery Nasal Cannula Oxygen Flow Rate 1 05/31/25 19:34 Temperature Pulse Rate 123 H Respiratory Rate Blood Pressure 98/68 L Pulse Oximetry Oxygen Delivery Oxygen Flow Rate Exam 2 Narrative: GEN: Alert, oriented, not in distress. She is on room air, has mild non productive coughing. HEENT: pupils are equal, EOMI, symmetrical face; oral membranes moist NECK: Trachea is midline CHEST: Equal air entry, symmetric excursion, clear breath sounds. CV: Distant regular S1S2 no m/g/r ABD : (+) bowel sounds Extremities : no clubbing, cyanosis, or edema. She has a large bruise on the left forearm. PSYCH: normal thought and speech, gait is not tested. Results Laboratory Findings 06/01/25 08:17 06/01/25 08:17 ABG, PT/INR, D-dimer: PT/INR, D-dimer PT 21.0 Seconds (11.1-14.7) H 05/29/25 11:43 INR 1.9 05/29/25 11:43 Abnormal lab findings: Abnormal Labs 05/29/25 05/29/25 05/29/25 11:43 12:35 20:23 WBC 12.2 H RBC Hgb 11.6 L D Hct MCH 24.6 L MCHC 29.8 L RDW 21.6 H Neut % (Auto) 82.0 H Lymph % (Auto) 9.1 L [place] % (Auto) Eos % (Auto) [place] # (Auto) 0.8 H Eos # (Auto) Abs Immat Gran (auto) 0.06 H Absolute Neuts (auto) 10.0 H PT 21.0 H Sodium 134 L Potassium 2.8 L* Chloride 87 L Carbon Dioxide 36 H BUN 29 H D Creatinine 1.62 H Estimated GFR 31 L Glucose 119 H POC Capillary Glucose 153 H Calcium NT-Pro-B Natriuret Pep 611 H Total Protein 8.3 H Urine Appearance Cloudy H Urine Glucose (UA) 3+ H Urine Nitrate Positive H Leukocyte Esterase Rfl 2+ H Urine WBC >100 H Urine Bacteria 4+ H 05/30/25 05/30/25 05/30/25 04:05 11:16 16:16 WBC RBC 3.94 L Hgb 9.6 L Hct 33.0 L MCH 24.4 L MCHC 29.1 L RDW 21.2 H Neut % (Auto) 75.8 H Lymph % (Auto) 11.3 L [place] % (Auto) 11.2 H Eos % (Auto) [place] # (Auto) 1.1 H Eos # (Auto) Abs Immat Gran (auto) Absolute Neuts (auto) 7.3 H PT Sodium 129 L 133 L Potassium 2.6 L* 3.0 L 3.1 L Chloride 88 L 92 L Carbon Dioxide 35 H 33 H BUN 25 H 25 H Creatinine 1.30 H 1.35 H Estimated GFR 40 L 38 L Glucose POC Capillary Glucose Calcium 8.3 L NT-Pro-B Natriuret Pep Total Protein Urine Appearance Urine Glucose (UA) Urine Nitrate Leukocyte Esterase Rfl Urine WBC Urine Bacteria 05/30/25 05/31/25 05/31/25 20:32 09:00 19:52 WBC RBC 4.17 L Hgb 10.3 L Hct 35.2 L MCH 24.7 L MCHC 29.3 L RDW 21.0 H Neut % (Auto) 74.6 H Lymph % (Auto) 10.9 L [place] % (Auto) Eos % (Auto) 5.5 H [place] # (Auto) 0.7 H Eos # (Auto) 0.5 H Abs Immat Gran (auto) Absolute Neuts (auto) 6.9 H PT Sodium 132 L Potassium 3.1 L Chloride 92 L Carbon Dioxide 32 H BUN 18 H Creatinine 1.01 H Estimated GFR 53 L Glucose 127 H POC Capillary Glucose 131 H 164 H Calcium NT-Pro-B Natriuret Pep Total Protein Urine Appearance Urine Glucose (UA) Urine Nitrate Leukocyte Esterase Rfl Urine WBC Urine Bacteria
[2025-06-01] VITALS (12 sets, daily range): BP systolic 86–102; BP diastolic 59–77; PULSE 98–115; RESP 17–18; TEMP 35.7–37.2; O2SAT 92–99
[2025-06-01] MEDS: LEVOTHYROXINE SODIUM 125 MCG TABLET BY MOUTH (06:00)
--- NOTE | 2025-06-01 07:19 | P.PNIM_ITS ---
Progress Note: A&P Assessment and Plan (1) Paroxysmal atrial fibrillation: Code(s): I48.0 - Paroxysmal atrial fibrillation Status: Acute Assessment and Plan: - patient went into Afib 05/31 afternoon with HR 100-110s. 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 May be due to pulmonary HTN. - weaned to RA with rest, but still becoming hypoxic with activity. May need home O2 eval once cardiac issues resolve. (3) Hypokalemia: Code(s): E87.6 - Hypokalemia Status: Acute Assessment and Plan: - Significant hypokalemia despite supplementation. K+ 2.9 today. Mag 2.2. - no GI losses. Does have some decreased appetite. - initially started Aldactone, but held due to low BP - increased scheduled potassium 40meq BID - given continued hypokalemia, will consult nephrology to rule out renal losses (4) Difficulty swallowing: Code(s): R13.10 - Dysphagia, unspecified Status: Acute Assessment and Plan: - speech eval ordered (5) Abnormal finding on CT scan: Code(s): R93.89 - Abnormal findings on diagnostic imaging of other specified body structures Status: Acute Assessment and Plan: 05/29 Chest CTA showed No pulmonary embolus. No thoracic aortic dissection. Redemonstration of mediastinal lymphadenopathy, increased in size from prior examination. Increase in prominence of the mosaic attenuation of the bilateral lung henderson, for which follow-up nonemergent high-resolution CT is recommended, for further characterization. Redemonstration of mediastinal lymphadenopathy. Interval enlargement of the subcarinal lymph node, detected on prior study. - patient reports history of sarcoidosis - pulmonology consulted - unclear if changes are truly related to ILD. Recommended outpatient high-resolution chest CT, PFTs, walk evaluation and pulmonary rehab. Also ordered hypersensitivity pneumonitis profile. (6) UTI (urinary tract infection): Qualifiers: Hematuria presence: without hematuria Urinary tract infection type: acute cystitis Qualified Code(s): N30.00 - Acute cystitis without hematuria Code(s): N39.0 - Urinary tract infection, site not specified Status: Acute Assessment and Plan: - UA with positive nitrates, 2+ leukocytes, >100 WBC, 4+ bacteria - symptomatic with dysuria - on IV Rocephin - Culture and sensitivity still pending (7) Chest pain: Code(s): R07.9 - Chest pain, unspecified Status: Acute Assessment and Plan: -Left chest pain, improving -Troponin negative x2 -Frequent coughing,pain sounds more pleuritic - cardiology following, recommended outpatient ischemic eval (8) Diastolic heart failure: Code(s): I50.30 - Unspecified diastolic (congestive) heart failure Status: Acute Assessment and Plan: - LE edema reportedly improving - cardiology following - held Bumex and Aldactone due to low BP and electrolyte abnormalities. Monitor volume status closely. (9) Type 2 diabetes mellitus: Qualifiers: Diabetes mellitus complication status: without complication Diabetes mellitus senior living insulin use: without insurance coordinator use Qualified Code(s): E11.9 - Type 2 diabetes mellitus without complications Code(s): E11.9 - Type 2 diabetes mellitus without complications Status: Acute Assessment and Plan: -Continue Jardiance -Jackieu-Bertha platt HS -SSI -Hold metformin (10) Pulmonary hypertension: Code(s): I27.20 - Pulmonary hypertension, unspecified Status: Acute Assessment and Plan: - may need left and right heart cath as outpatient per cardiology - may need home O2 eval Subjective Date/time seen: 06/01/25 07:19 Interval history: Patient seen and examined at bedside. Feeling fatigued which she feels is due to her AFib. Also still complaining of dysuria. Denies chest pain. Breathing feels stable. Review of Systems Review of Systems: 12 systems were reviewed and are negativ e except for as per HPI. All systems reviewed & are unremarkable except as noted in HPI and below Exam Narrative: General: NAD Eyes: EOMI ENT: neck supple Cardiovascular: Irregularly irregular Respiratory: Clear to auscultation, respirations even and unlabored on RA Gastrointestinal: Soft, non tender Genitourinary: no suprapubic tenderness Musculoskeletal: No edema Skin: warm, dry Neuro: Alert. Psych: Mood appropriate Objective Data Vital Signs Vital Signs: Vital Signs - 24 hr 05/31/25 07:34 05/31/25 08:00 05/31/25 08:00 Temperature 97.6 F Pulse Rate 100 102 H Respiratory Rate 18 Blood Pressure Pulse Oximetry 96 97 Oxygen Delivery Nasal Cannula Oxygen Flow Rate 2 05/31/25 08:30 05/31/25 08:31 05/31/25 11:06 Temperature Pulse Rate 99 Respiratory Rate Blood Pressure 98/59 L Pulse Oximetry 92 Oxygen Delivery Nasal Cannula Oxygen Flow Rate 2 05/31/25 11:12 05/31/25 11:22 05/31/25 12:00 Temperature Pulse Rate 116 H Respiratory Rate Blood Pressure Pulse Oximetry Oxygen Delivery Nasal Cannula Nasal Cannula Oxygen Flow Rate 2 2 05/31/25 16:00 05/31/25 16:23 05/31/25 17:30 Temperature Pulse Rate 127 H 98 Respiratory Rate 18 Blood Pressure Pulse Oximetry 92 Oxygen Delivery Nasal Cannula Oxygen Flow Rate 1 05/31/25 19:34 05/31/25 19:50 05/31/25 20:00 Temperature 96.8 F L Pulse Rate 123 H 109 H 124 H Respiratory Rate 18 Blood Pressure 98/68 L 105/60 Pulse Oximetry 97 Oxygen Delivery Oxygen Flow Rate 06/01/25 02:11 06/01/25 03:30 06/01/25 04:00 Temperature Pulse Rate 110 H 115 H 110 H Respiratory Rate Blood Pressure 102/77 Pulse Oximetry Oxygen Delivery Oxygen Flow Rate 06/01/25 04:20 Temperature 98.7 F Pulse Rate 106 H Respiratory Rate 18 Blood Pressure 98/59 L Pulse Oximetry 97 Oxygen Delivery Oxygen Flow Rate Intake/Output Intake/Output: Intake & Output 05/29/25 05/30/25 05/31/25 06/01/25 23:59 23:59 23:59 23:59 Intake Total 720 3120 810 150 Output Total 2325 2400 Balance 720 795 -1590 150 Meds/Results Medications: Active Medications Generic Name Dose Route Start Last Admin Trade Name Freq PRN Reason Stop Dose Admin Acetaminophen 650 mg 05/29/25 14:27 Acetaminophen 325 Mg Tablet PO Q4H PRN Mild Pain (1-3) or Fever Hydrocodone Bitart/Acetaminophen 1 tab 05/29/25 14:27 Hydrocodone/Acetaminophen (*Crx) 5-325 Mg Tablet PO Q4H PRN Moderate Pain (4-6) Amiodarone HCl 200 mg 05/31/25 09:00 05/31/25 08:31 Amiodarone Hcl 200 Mg Tablet PO 200 mg DAILY KERLINE Administration Bumetanide 1 mg 05/30/25 09:00 05/31/25 16:02 Bumetanide 1 Mg Tablet PO 1 mg BID KERLINE Administration Dextrose 12.5 gm 05/29/25 23:04 Dextrose 50% 25 Gm/50 Ml Syringe IV PUSH PRN PRN Hypoglycemia Protocol Docusate Sodium 100 mg 05/29/25 17:00 05/31/25 16:01 Docusate Sodium 100 Mg Capsule PO 100 mg BID KERLINE Administration Empagliflozin 10 mg 05/30/25 09:00 05/31/25 08:31 Empagliflozin 10 Mg Tablet PO 10 mg DAILY EKRLINE Administration Fluoxetine HCl 40 mg 05/30/25 09:00 05/31/25 08:31 Fluoxetine Hcl 20 Mg Capsule PO 40 mg DAILY KERLINE Administration Gabapentin 600 mg 05/30/25 16:32 05/31/25 16:01 Gabapentin 300 Mg Capsule PO 600 mg TID PRN Administration RLS Glucagon 1 mg 05/29/25 23:04 Glucagon For Inj 1 Mg Vial IM PRN PRN Hypoglycemia Protocol Glucose 15 gm 05/29/25 23:04 Glucose Oral Gel 15 Gm Of Glucse In 37.5 Gm Tube PO PRN PRN Hypoglycemia Protocol Ceftriaxone Sodium 1 gm/ 50 mls @ 100 mls/hr 05/30/25 19:00 05/31/25 18:16 Sodium Chloride IVPB 100 mls/hr Q24H KERLINE Administration Dextrose 1,000 mls @ 100 mls/hr 05/29/25 23:04 Dextrose 5% 1,000 Ml IVPB PRN PRN Hypoglycemia Protocol Insulin Aspart 2 - 5 units 05/30/25 08:00 05/31/25 16:26 Insulin Aspart (*Bkc) 100 Units/Ml SUB-Q Not Given TIDWM KERLINE Protocol Insulin Aspart 1 - 2 units 05/30/25 21:00 05/31/25 23:22 Insulin Aspart (*Bkc) 100 Units/Ml SUB-Q Not Given HS KERLINE Protocol Levothyroxine Sodium 125 mcg 05/30/25 06:30 06/01/25 06:00 Levothyroxine Sodium 125 Mcg Tablet BY MOUTH 125 mcg DAILY@0630 KERLINE Administration Metoprolol Tartrate 5 mg 05/31/25 15:52 Metoprolol Tartrate Inj 5 Mg/5 Ml Vial IV PUSH Q6H PRN Tachycardia Morphine Sulfate 2 mg 05/29/25 14:27 Morphine Sulfate (*Crx) 2 Mg/Ml Inj IV PUSH Q5M PRN Pain Rated 4-6 Nitroglycerin 0.4 mg 05/29/25 14:27 Nitroglycerin Sl 0.4 Mg Tablet SUBLINGUAL Q5MIN PRN Chest Pain Ondansetron HCl 4 mg 05/29/25 14:08 05/30/25 06:47 Ondansetron Inj 4 Mg/2 Ml Vial IV PUSH 4 mg Q4H PRN Administration Nausea Perflutren Lipid Microsphere 0 ml 05/29/25 14:27 Perflutren Lipid Microspheres 1.5 Ml Vial Diluted To 10 Ml Total Volume IV PUSH 06/01/25 14:30 ONCE PRN adequate visualization Protocol Phenazopyridine HCl 100 mg 05/30/25 15:23 05/31/25 16:01 Phenazopyridine Hcl 100 Mg Tablet PO 06/01/25 15:24 100 mg Q8HR PRN Administration painful urination Potassium Chloride 20 meq 05/31/25 09:00 05/31/25 16:02 Potassium Chloride 20 Meq Er Tablet PO 20 meq BID KERLINE Administration Pramipexole Dihydrochloride 1 mg 05/30/25 16:32 05/31/25 16:02 Pramipexole 1 Mg Tablet PO 1 mg TID PRN Administration RLS Rivaroxaban 20 mg 05/29/25 21:50 05/31/25 16:02 Rivaroxaban 20 Mg Tablet PO 20 mg DAILY@1700 KERLINE Administration Rosuvastatin Calcium 10 mg 05/29/25 21:50 05/31/25 20:36 Rosuvastatin 10 Mg Tablet PO 10 mg HS KERLINE Administration Spironolactone 12.5 mg 05/30/25 15:00 05/31/25 08:31 Spironolactone 12.5 Mg Tablet PO 12.5 mg DAILY KERLINE Administration Radiology Results: ITS Impressions Chest X-Ray 05/29/25 11:52 IMPRESSION: Interstitial thickening, without focal infiltrate or effusion. Chest CTA 05/29/25 13:30 IMPRESSION: No pulmonary embolus. No thoracic aortic dissection. Redemonstration of mediastinal lymphadenopathy, increased in size from prior examination. Increase in prominence of the mosaic attenuation of the bilateral lung henderson, for which follow-up nonemergent high-resolution CT is recommended, for further characterization. Redemonstration of mediastinal lymphadenopathy. Interval enlargement of the subcarinal lymph node, detected on prior study. Labs Labs: Laboratory Results - last 24 hr 05/31/25 05/31/25 05/31/25 09:00 11:11 16:02 WBC 9.2 RBC 4.17 L Hgb 10.3 L Hct 35.2 L MCV 84.4 MCH 24.7 L MCHC 29.3 L RDW 21.0 H Plt Count 205 MPV 10.4 Immature Gran % (Auto) 0.3 Neut % (Auto) 74.6 H Lymph % (Auto) 10.9 L [place] % (Auto) 7.8 Eos % (Auto) 5.5 H Baso % (Auto) 0.9 Lymph # (Auto) 1.00 [place] # (Auto) 0.7 H Eos # (Auto) 0.5 H Baso # (Auto) 0.1 Abs Immat Gran (auto) 0.03 Absolute Neuts (auto) 6.9 H Absolute Nucleated RBC 0.000 Band Neutrophils % Not Reportable Nucleated RBC % 0.0 Platelet Estimate Adequate Hypochromasia 1+ Ovalocytes 1+ Schistocytes None seen Sodium 132 L Potassium 3.1 L Chloride 92 L Carbon Dioxide 32 H Anion Gap 8 BUN 18 H Creatinine 1.01 H Estim Creat Clear Calc 44 Estimated GFR 53 L Glucose 127 H POC Capillary Glucose 96 105 Calcium 8.8 Magnesium 2.1 05/31/25 19:52 WBC RBC Hgb Hct MCV MCH MCHC RDW Plt Count MPV Immature Gran % (Auto) Neut % (Auto) Lymph % (Auto) [place] % (Auto) Eos % (Auto) Baso % (Auto) Lymph # (Auto) [place] # (Auto) Eos # (Auto) Baso # (Auto) Abs Immat Gran (auto) Absolute Neuts (auto) Absolute Nucleated RBC Band Neutrophils % Nucleated RBC % Platelet Estimate Hypochromasia Ovalocytes Schistocytes Sodium Potassium Chloride Carbon Dioxide Anion Gap BUN Creatinine Estim Creat Clear Calc Estimated GFR Glucose POC Capillary Glucose 164 H Calcium Magnesium Quality VTE Prophylaxis VTE prophylaxis: pharmacologic ordered
[2025-06-01 08:43] LABS: Hematocrit 36.5 % (37.0-47.0); Hemoglobin 10.6 g/dL (12.0-15.0); Immature Granulocyte Percent A 0.4 % (0-0.5); Lymphocytes Absolute Auto 1.13 K/mm3 (0.9-3.2); Mean Corpuscular HGB Conc 29.0 g/dl (32-36); Mean Corpuscular Hemoglobin 24.7 pg (26-34); Mean Corpuscular Volume 84.9 fl (80-100); Nucleated Red Blood Cells Absolute Auto 0.000 K/mm3 (0.0-0.012); Nucleated Red Blood Cells Perc 0.0 % (0.0-0.2); Platelet Count Result 222 k/mm3 (150-375); Red Blood Count 4.30 M/mm3 (4.2-5.4); White Blood Count 7.8 K/mm3 (4.5-10.0)
[2025-06-01] MEDS: BUMETANIDE 1 MG TABLET PO (08:55)
[2025-06-01] MEDS: DOCUSATE SODIUM 100 MG CAPSULE PO ×2 (08:55→17:59)
[2025-06-01] MEDS: AMIODARONE HCL 200 MG TABLET PO (08:56)
[2025-06-01] MEDS: EMPAGLIFLOZIN 10 MG TABLET PO (08:56)
[2025-06-01] MEDS: POTASSIUM CHLORIDE 20 MEQ ER TABLET PO (08:56)
[2025-06-01 09:03] LABS: Hypochromasia 1+; Ovalocytes 1+; Schistocytes None Seen
[2025-06-01 09:11] LABS: Anion Gap 8 mmol/L (4-12); Blood Urea Nitrogen 19 mg/dL (7-17); Calcium 9.0 mg/dL (8.4-10.2); Carbon Dioxide 35 mmol/L (22-30); Chloride 93 mmol/L (98-107); Estimated CRCL calculation 38 ml/min; Estimated Glomerular Filt Rate 48; Glucose 114 mg/dL (65-110); Magnesium 2.2 mg/dL (1.6-2.3); Potassium 2.9 mmol/L (3.4-5.0); Sodium 136 mmol/L (137-145)
--- NOTE | 2025-06-01 12:29 | P.PNCA_ITS ---
Progress Note: A&P Assessment and Plan (1) Chest pain: Code(s): R07.9 - Chest pain, unspecified Status: Acute (2) Acute exacerbation of chronic heart failure: Code(s): I50.9 - Heart failure, unspecified Status: Acute (3) Paroxysmal atrial fibrillation: Code(s): I48.0 - Paroxysmal atrial fibrillation Status: Acute (4) Pulmonary hypertension: Code(s): I27.20 - Pulmonary hypertension, unspecified Status: Acute Plan 79-year-old woman with chronic diastolic heart failure, paroxysmal atrial fibrillation (now on amiodarone as well as Xarelto), severe pulmonary hypertension (by echo), diabetes, and obstructive sleep apnea is presented with left-sided chest pain Chest pain -ruled out for MA -clinically appears to be pleuritic in nature -can follow up outpatient for possible ischemic eval-she wants to transition her care from [facility] to our practice. We will arrange for outpatient follow-up in our office. Chronic diastolic heart failure -Bumex on hold -fluid restriction to 1.5 L per day while hospitalized -Renal function improved today. Continue daily BMP. -Hold spironolactone for the time being to give BP more room for addition of rate control agents if needed -KCL 40 mEq p.o. b.i.d. for hypokalemia. K+ 2.9 today. -Jardiance 10 mg p.o. daily Severe pulmonary hypertension -if she continues to have significant shortness of breath and exertional symptoms despite optimal diuresis, right and left heart catheterization may be warranted Paroxysmal atrial fibrillation -In atrial fibrillation now with variable HR. Tachycardic and symptomatic with activity. -continue amiodarone 200 mg p.o. daily and Xarelto 20 mg every evening with dinner -NPO at midnight for possible DCCV tomorrow if she remains in AF -Obviously her K+ needs to be ~4.0 in order to proceed with DCCV tomorrow. Obstructive sleep apnea -recommend CPAP compliance Subjective Date/time seen: 06/01/25 12:29 Interval history: Cardiology follow-up visit Date of service 05/31/2025: Feels okay today. Still has shortness of breath with activity. Denies any orthopnea, swelling, palpitations. Date of service 06/01/2025: Reports feeling about the same today. Off supplemental oxygen at this point. No swelling. still has shortness of breath with exertion. Went into atrial fibrillation yesterday afternoon and is intermittently tachycardic with activity. Does feel palpitations when heart rate is elevated. Review of Systems Cardiovascular: Cardiovascular: Reports as per HPI Respiratory: Respiratory: Reports as per HPI Exam Const: General: comfortable HENMT: Mouth: Yes moist mucous membranes Eyes: EOM: EOMs intact bilaterally Neck: Neck: no JVD Resp: Effort & Inspection: normal respiratory effort Auscultation: rales Cardio: Rate: regular rate Rhythm: abnormal rhythm irregularly irregular Skin: General skin exam: ecchymosis and erythema Neuro: Speech: normal speech Extrem: General: no pedal edema Objective Data Vital Signs Vital Signs: Vital Signs - 24 hr 05/31/25 16:00 05/31/25 16:23 05/31/25 17:30 Temperature Pulse Rate 127 H 98 Respiratory Rate 18 Blood Pressure Pulse Oximetry 92 Oxygen Delivery Nasal Cannula Oxygen Flow Rate 1 05/31/25 19:34 05/31/25 19:50 05/31/25 20:00 Temperature 36.0 C L Pulse Rate 123 H 109 H 124 H Respiratory Rate 18 Blood Pressure 98/68 L 105/60 Pulse Oximetry 97 Oxygen Delivery Oxygen Flow Rate 06/01/25 02:11 06/01/25 03:30 06/01/25 04:00 Temperature Pulse Rate 110 H 115 H 110 H Respiratory Rate Blood Pressure 102/77 Pulse Oximetry Oxygen Delivery Oxygen Flow Rate 06/01/25 04:20 06/01/25 08:00 06/01/25 08:00 Temperature 37.1 C Pulse Rate 106 H 106 H Respiratory Rate 18 Blood Pressure 98/59 L Pulse Oximetry 97 99 Oxygen Delivery Nasal Cannula Oxygen Flow Rate 1 06/01/25 09:33 Temperature Pulse Rate Respiratory Rate Blood Pressure Pulse Oximetry 99 Oxygen Delivery Nasal Cannula Oxygen Flow Rate 1 Intake/Output Intake/Output: Intake & Output 05/29/25 05/30/25 05/31/25 06/01/25 23:59 23:59 23:59 23:59 Intake Total 720 3120 810 370 Output Total 5755 2400 Balance 720 795 -1590 370 Meds/Results Medications: Active Medications Generic Name Dose Route Start Last Admin Trade Name Freq PRN Reason Stop Dose Admin Acetaminophen 650 mg 05/29/25 14:27 Acetaminophen 325 Mg Tablet PO Q4H PRN Mild Pain (1-3) or Fever Hydrocodone Bitart/Acetaminophen 1 tab 05/29/25 14:27 Hydrocodone/Acetaminophen (*Crx) 5-325 Mg Tablet PO Q4H PRN Moderate Pain (4-6) Amiodarone HCl 200 mg 05/31/25 09:00 06/01/25 08:56 Amiodarone Hcl 200 Mg Tablet PO 200 mg DAILY KRELINE Administration Bumetanide 1 mg 05/30/25 09:00 06/01/25 08:55 Bumetanide 1 Mg Tablet PO 1 mg BID KERLINE Administration Dextrose 12.5 gm 05/29/25 23:04 Dextrose 50% 25 Gm/50 Ml Syringe IV PUSH PRN PRN Hypoglycemia Protocol Docusate Sodium 100 mg 05/29/25 17:00 06/01/25 08:55 Docusate Sodium 100 Mg Capsule PO 100 mg BID KERLINE Administration Empagliflozin 10 mg 05/30/25 09:00 06/01/25 08:56 Empagliflozin 10 Mg Tablet PO 10 mg DAILY KERLINE Administration Fluoxetine HCl 40 mg 05/30/25 09:00 06/01/25 08:56 Fluoxetine Hcl 20 Mg Capsule PO 40 mg DAILY KERLINE Administration Gabapentin 600 mg 05/30/25 16:32 05/31/25 16:01 Gabapentin 300 Mg Capsule PO 600 mg TID PRN Administration RLS Glucagon 1 mg 05/29/25 23:04 Glucagon For Inj 1 Mg Vial IM PRN PRN Hypoglycemia Protocol Glucose 15 gm 05/29/25 23:04 Glucose Oral Gel 15 Gm Of Glucse In 37.5 Gm Tube PO PRN PRN Hypoglycemia Protocol Ceftriaxone Sodium 1 gm/ 50 mls @ 100 mls/hr 05/30/25 19:00 05/31/25 18:16 Sodium Chloride IVPB 100 mls/hr Q24H KERLINE Administration Dextrose 1,000 mls @ 100 mls/hr 05/29/25 23:04 Dextrose 5% 1,000 Ml IVPB PRN PRN Hypoglycemia Protocol Potassium Chloride 40 meq/ 520 mls @ 130 mls/hr 06/01/25 12:30 Sodium Chloride IVPB 06/01/25 16:29 ONCE ONE Insulin Aspart 2 - 5 units 05/30/25 08:00 06/01/25 11:54 Insulin Aspart (*Bkc) 100 Units/Ml SUB-Q Not Given TIDWM [facility] Protocol Insulin Aspart 1 - 2 units 05/30/25 21:00 05/31/25 23:22 Insulin Aspart (*Bkc) 100 Units/Ml SUB-Q Not Given HS [facility] Protocol Levothyroxine Sodium 125 mcg 05/30/25 06:30 06/01/25 06:00 Levothyroxine Sodium 125 Mcg Tablet BY MOUTH 125 mcg DAILY@0630 KERLINE Administration Metoprolol Tartrate 5 mg 05/31/25 15:52 Metoprolol Tartrate Inj 5 Mg/5 Ml Vial IV PUSH Q6H PRN Tachycardia Morphine Sulfate 2 mg 05/29/25 14:27 Morphine Sulfate (*Crx) 2 Mg/Ml Inj IV PUSH Q5M PRN Pain Rated 4-6 Nitroglycerin 0.4 mg 05/29/25 14:27 Nitroglycerin Sl 0.4 Mg Tablet SUBLINGUAL Q5MIN PRN Chest Pain Ondansetron HCl 4 mg 05/29/25 14:08 05/30/25 06:47 Ondansetron Inj 4 Mg/2 Ml Vial IV PUSH 4 mg Q4H PRN Administration Nausea Perflutren Lipid Microsphere 0 ml 05/29/25 14:27 Perflutren Lipid Microspheres 1.5 Ml Vial Diluted To 10 Ml Total Volume IV PUSH 06/01/25 14:30 ONCE PRN adequate visualization Protocol Phenazopyridine HCl 100 mg 05/30/25 15:23 05/31/25 16:01 Phenazopyridine Hcl 100 Mg Tablet PO 06/01/25 15:24 100 mg Q8HR PRN Administration painful urination Potassium Chloride 40 meq 06/01/25 17:00 Potassium Chloride 20 Meq Er Tablet PO BID KERLINE Pramipexole Dihydrochloride 1 mg 05/30/25 16:32 05/31/25 16:02 Pramipexole 1 Mg Tablet PO 1 mg TID PRN Administration RLS Rivaroxaban 20 mg 05/29/25 21:50 05/31/25 16:02 Rivaroxaban 20 Mg Tablet PO 20 mg DAILY@1700 KERLINE Administration Rosuvastatin Calcium 10 mg 05/29/25 21:50 05/31/25 20:36 Rosuvastatin 10 Mg Tablet PO 10 mg HS KERLINE Administration Fluticasone/Salmeterol 2 puff 06/01/25 20:00 Fluticasone/Salmeterol 115-21 Mcg Inhaler 1 Puff INHALATION Q12HRT KERLINE Spironolactone 12.5 mg 05/30/25 15:00 06/01/25 08:56 Spironolactone 12.5 Mg Tablet PO 12.5 mg DAILY KERLINE Administration Radiology Results: ITS Impressions Chest X-Ray 05/29/25 11:52 IMPRESSION: Interstitial thickening, without focal infiltrate or effusion. Chest CTA 05/29/25 13:30 IMPRESSION: No pulmonary embolus. No thoracic aortic dissection. Redemonstration of mediastinal lymphadenopathy, increased in size from prior examination. Increase in prominence of the mosaic attenuation of the bilateral lung henderson, for which follow-up nonemergent high-resolution CT is recommended, for further characterization. Redemonstration of mediastinal lymphadenopathy. Interval enlargement of the subcarinal lymph node, detected on prior study. Labs Labs: Laboratory Results - last 24 hr 05/31/25 05/31/25 06/01/25 16:02 19:52 07:35 WBC RBC Hgb Hct MCV MCH MCHC RDW Plt Count MPV Immature Gran % (Auto) Neut % (Auto) Lymph % (Auto) [place] % (Auto) Eos % (Auto) Baso % (Auto) Lymph # (Auto) [place] # (Auto) Eos # (Auto) Baso # (Auto) Abs Immat Gran (auto) Absolute Neuts (auto) Absolute Nucleated RBC Band Neutrophils % Nucleated RBC % Platelet Estimate Hypochromasia Ovalocytes Schistocytes Sodium Potassium Chloride Carbon Dioxide Anion Gap BUN Creatinine Estim Creat Clear Calc Estimated GFR Glucose POC Capillary Glucose 105 164 H 111 H Calcium Magnesium 06/01/25 06/01/25 08:17 11:19 WBC 7.8 RBC 4.30 Hgb 10.6 L Hct 36.5 L MCV 84.9 MCH 24.7 L MCHC 29.0 L RDW 21.2 H Plt Count 222 MPV 10.1 Immature Gran % (Auto) 0.4 Neut % (Auto) 72.6 Lymph % (Auto) 14.5 L [place] % (Auto) 7.3 Eos % (Auto) 4.4 Baso % (Auto) 0.8 Lymph # (Auto) 1.13 [place] # (Auto) 0.6 Eos # (Auto) 0.3 Baso # (Auto) 0.1 Abs Immat Gran (auto) 0.03 Absolute Neuts (auto) 5.6 Absolute Nucleated RBC 0.000 Band Neutrophils % Not Reportable Nucleated RBC % 0.0 Platelet Estimate Adequate Hypochromasia 1+ Ovalocytes 1+ Schistocytes None seen Sodium 136 L Potassium 2.9 L Chloride 93 L Carbon Dioxide 35 H Anion Gap 8 BUN 19 H Creatinine 1.10 H Estim Creat Clear Calc 38 Estimated GFR 48 L Glucose 114 H POC Capillary Glucose 108 H Calcium 9.0 Magnesium 2.2 Quality VTE Prophylaxis VTE prophylaxis: pharmacologic ordered
[2025-06-01] MEDS: POTASSIUM CHLORIDE INJ 40 MEQ in SODIUM CHLORIDE 0.9% IV 500 ML 130 MEQ IVPB (13:16)
--- NOTE | 2025-06-01 14:08 | PCSTNOTE ---
Please refer to the Bedside Swallow Evaluation in the EMR. Please note, silent aspiration cannot be ruled out at bedside. The above pleasant and cooperative pt was seen for a swallow evaluation at bedside. The pt was positioned upright in a chair. She was alert & oriented x 4 and able to follow commands. She is currently on a regular diet and reports difficulty swallowing sometimes. She c/o of a dry mouth and that dry food and pills can get stuck in her esophagus at times. She stated she feels a scrapping feeling in her esophagus. She also stated that she takes a potassium pill, which she reports is a known irritant to the esophagus. Oral mucosa is dry; natural dentition is in good condition; oral peripheral exam revealed lingual and labial structures to be normal. She was able to dry swallow on command and exhibited clear vocal quality. She was tested with pudding, crackers, crackers with peanut butter, raw carrots, and bites of a chicken salad sandwich from her lunch tray. Thin liquids were tested as well via cup sips and straw drinking. The oral stages appeared WNL. No oral leakage or pocketing was noted. During the pharyngeal stage, the swallow reflex appeared prompt & laryngeal elevation adequate. No overt s/s of aspiration were exhibited; however, silent aspiration cannot be ruled out at bedside. General impression is normal swallow ability. Recommendation: Continue current diet. If there is further concern for dysphagia &/or aspiration, an MBS vs UGI could be completed. Thank you for this referral.
[2025-06-01] MEDS: GABAPENTIN 300 MG CAPSULE 600 MG PO (16:00)
[2025-06-01] MEDS: PRAMIPEXOLE 1 MG TABLET PO (16:03)
[2025-06-01] MEDS: RIVAROXABAN 20 MG TABLET PO (17:59)
[2025-06-01] MEDS: POTASSIUM CHLORIDE 20 MEQ ER TABLET 40 MEQ PO (17:59)
[2025-06-01] MEDS: cefTRIAXone 1 GM in SODIUM CHLORIDE 0.9% IV 50 ML 100 ML IVPB (18:58)
[2025-06-01] MEDS: FLUTICASONE/SALMETEROL 115-21 MCG INHALER 1 PUFF 2 PUFF INHALATION (20:53)
[2025-06-01 21:03] LABS: Potassium 3.6 mmol/L (3.4-5.0)
[2025-06-01] MEDS: ROSUVASTATIN 10 MG TABLET PO (21:25)
[2025-06-01] MEDS: ONDANSETRON INJ 4 MG/2 ML VIAL IV PUSH (22:43)
[2025-06-02] VITALS (11 sets, daily range): BP systolic 94–109; BP diastolic 61–71; PULSE 72–105; RESP 16–20; TEMP 36.1–36.9; O2SAT 90–98
[2025-06-02] MEDS: POTASSIUM CHLORIDE 20 MEQ ER TABLET PO (03:02)
[2025-06-02 04:51] LABS: Total Protein Urine Random 17 mg/dL; Ur Ttl Prot Creatinine Ratio 0.20 mg/mg (0-0.20)
[2025-06-02 04:58] LABS: Total Protein Urine Random 17 mg/dL; Urea Random Urine 611 MG/DL
[2025-06-02 06:54] LABS: Anion Gap 7 mmol/L (4-12); Blood Urea Nitrogen 20 mg/dL (7-17); Calcium 8.9 mg/dL (8.4-10.2); Carbon Dioxide 31 mmol/L (22-30); Chloride 94 mmol/L (98-107); Estimated CRCL calculation 38 ml/min; Estimated Glomerular Filt Rate 48; Glucose 104 mg/dL (65-110); Potassium 3.5 mmol/L (3.4-5.0); Sodium 132 mmol/L (137-145)
[2025-06-02 07:17] LABS: Thyroid Stimulating Hormone Reflex 0.666 uIU/mL (0.465-4.68)
--- NOTE | 2025-06-02 07:52 | PM.PNCARD ---
Progress Note: A&P Assessment and Plan (1) Chest pain: Code(s): R07.9 - Chest pain, unspecified Status: Acute (2) Acute exacerbation of chronic heart failure: Code(s): I50.9 - Heart failure, unspecified Status: Acute (3) Paroxysmal atrial fibrillation: Code(s): I48.0 - Paroxysmal atrial fibrillation Status: Acute (4) Pulmonary hypertension: Code(s): I27.20 - Pulmonary hypertension, unspecified Status: Acute Plan 79-year-old woman with chronic diastolic heart failure, paroxysmal atrial fibrillation (now on amiodarone as well as Xarelto), severe pulmonary hypertension (by echo), diabetes, and obstructive sleep apnea is presented with left-sided chest pain Chest pain -ruled out for ND -clinically appears to be pleuritic in nature -can follow up outpatient for possible ischemic eval-she wants to transition her care from [facility] to our practice. We will arrange for outpatient follow-up in our office Chronic diastolic heart failure -Bumex on hold -fluid restriction to 1.5 L per day while hospitalized -Renal function improved today. Continue daily BMP -Hold spironolactone for the time being to give BP more room for addition of rate control agents if needed -KCL 40 mEq p.o. b.i.d. for hypokalemia. K+ 3.5 today -Jardiance 10 mg p.o. daily Severe pulmonary hypertension -if she continues to have significant shortness of breath and exertional symptoms despite optimal diuresis, right and left heart catheterization may be warranted Paroxysmal atrial fibrillation -In atrial fibrillation now with variable HR. Tachycardic and symptomatic with activity -Continue amiodarone 200 mg p.o. daily and Xarelto 20 mg every evening with dinner -DCCV today as she still remains in AFib with RVR and asymptomatic from this. Patient has confirmed that she did not miss any doses of Xarelto over the past month Obstructive sleep apnea -recommend CPAP compliance Subjective Date/time seen: 06/02/25 07:52 Interval history: Reason for encounter: AFib with RVR Interval history: She reports off and on palpitations. She does not feel good when she is in atrial fibrillation. She has shortness of breath. No chest pain. Telemetry shows AFib with rates in the 110s. Review of Systems Cardiovascular: Cardiovascular: Reports as per HPI Respiratory: Respiratory: Reports as per HPI Exam Narrative: General: Alert oriented x3, no acute distress Neck: Supple, no JVD Chest: Bilaterally clear to auscultation, no rales or rhonchi Cardiac: S1, S2 +, irregularly irregular rhythm, no murmurs or rubs Extremities: Bilateral lower extremity edema 1+, no skin rash Neurologic: Alert and oriented x3, no focal neurological deficits Const: General: comfortable HENMT: Mouth: Yes moist mucous membranes Eyes: EOM: EOMs intact bilaterally Neck: Neck: no JVD Resp: Effort & Inspection: normal respiratory effort Auscultation: rales Cardio: Rate: regular rate Rhythm: abnormal rhythm irregularly irregular Skin: General skin exam: ecchymosis and erythema Neuro: Speech: normal speech Extrem: General: no pedal edema Objective Data Vital Signs Vital Signs: Vital Signs - 24 hr 06/01/25 08:00 06/01/25 08:00 06/01/25 09:33 Temperature Pulse Rate 106 H Respiratory Rate Blood Pressure Pulse Oximetry 99 99 Oxygen Delivery Nasal Cannula Nasal Cannula Oxygen Flow Rate 1 1 06/01/25 12:00 06/01/25 14:00 06/01/25 16:00 Temperature 35.7 C L Pulse Rate 98 111 H 111 H Respiratory Rate 17 Blood Pressure 98/70 L Pulse Oximetry 95 Oxygen Delivery Oxygen Flow Rate 06/01/25 20:35 06/01/25 20:53 06/01/25 22:43 Temperature 37.2 C Pulse Rate 101 H 112 H Respiratory Rate 18 Blood Pressure 86/63 L 94/67 L Pulse Oximetry 92 93 Oxygen Delivery Room Air Oxygen Flow Rate 06/02/25 05:53 Temperature 36.1 C L Pulse Rate 105 H Respiratory Rate 18 Blood Pressure 109/71 Pulse Oximetry 95 Oxygen Delivery Oxygen Flow Rate Intake/Output Intake/Output: Intake & Output 05/30/25 05/31/25 06/01/25 06/02/25 23:59 23:59 23:59 23:59 Intake Total 3120 860 1072 Output Total 2325 2400 Balance 795 -6933 1072 Meds/Results Medications: Active Medications Generic Name Dose Route Start Last Admin Trade Name Freq PRN Reason Stop Dose Admin Acetaminophen 650 mg 05/29/25 14:27 Acetaminophen 325 Mg Tablet PO Q4H PRN Mild Pain (1-3) or Fever Hydrocodone Bitart/Acetaminophen 1 tab 05/29/25 14:27 Hydrocodone/Acetaminophen (*Crx) 5-325 Mg Tablet PO Q4H PRN Moderate Pain (4-6) Amiodarone HCl 200 mg 05/31/25 09:00 06/01/25 08:56 Amiodarone Hcl 200 Mg Tablet PO 200 mg DAILY KERLINE Administration Bumetanide 1 mg 05/30/25 09:00 06/01/25 08:55 Bumetanide 1 Mg Tablet PO 1 mg BID KERLINE Administration Dextrose 12.5 gm 05/29/25 23:04 Dextrose 50% 25 Gm/50 Ml Syringe IV PUSH PRN PRN Hypoglycemia Protocol Docusate Sodium 100 mg 05/29/25 17:00 06/01/25 17:59 Docusate Sodium 100 Mg Capsule PO 100 mg BID KERLINE Administration Empagliflozin 10 mg 05/30/25 09:00 06/01/25 08:56 Empagliflozin 10 Mg Tablet PO 10 mg DAILY KERLINE Administration Fluoxetine HCl 40 mg 05/30/25 09:00 06/01/25 08:56 Fluoxetine Hcl 20 Mg Capsule PO 40 mg DAILY KERLINE Administration Gabapentin 600 mg 05/30/25 16:32 06/01/25 16:00 Gabapentin 300 Mg Capsule PO 600 mg TID PRN Administration RLS Glucagon 1 mg 05/29/25 23:04 Glucagon For Inj 1 Mg Vial IM PRN PRN Hypoglycemia Protocol Glucose 15 gm 05/29/25 23:04 Glucose Oral Gel 15 Gm Of Glucse In 37.5 Gm Tube PO PRN PRN Hypoglycemia Protocol Ceftriaxone Sodium 1 gm/ 50 mls @ 100 mls/hr 05/30/25 19:00 06/01/25 18:58 Sodium Chloride IVPB 100 mls/hr Q24H KERLINE Administration Dextrose 1,000 mls @ 100 mls/hr 05/29/25 23:04 Dextrose 5% 1,000 Ml IVPB PRN PRN Hypoglycemia Protocol Insulin Aspart 2 - 5 units 05/30/25 08:00 06/01/25 16:53 Insulin Aspart (*Bkc) 100 Units/Ml SUB-Q Not Given TIDWM KERLINE Protocol Insulin Aspart 1 - 2 units 05/30/25 21:00 06/01/25 21:41 Insulin Aspart (*Bkc) 100 Units/Ml SUB-Q Not Given HS KERLINE Protocol Levothyroxine Sodium 125 mcg 05/30/25 06:30 06/02/25 06:22 Levothyroxine Sodium 125 Mcg Tablet BY MOUTH Not Given DAILY@0630 [facility] Metoprolol Tartrate 5 mg 05/31/25 15:52 Metoprolol Tartrate Inj 5 Mg/5 Ml Vial IV PUSH Q6H PRN Tachycardia Nitroglycerin 0.4 mg 05/29/25 14:27 Nitroglycerin Sl 0.4 Mg Tablet SUBLINGUAL Q5MIN PRN Chest Pain Ondansetron HCl 4 mg 05/29/25 14:08 06/01/25 22:43 Ondansetron Inj 4 Mg/2 Ml Vial IV PUSH 4 mg Q4H PRN Administration Nausea Pantoprazole Sodium 20 mg 06/02/25 09:00 Pantoprazole Sod Sesquihydrate 20 Mg Tab PO QAM [facility] Potassium Chloride 40 meq 06/01/25 17:00 06/01/25 17:59 Potassium Chloride 20 Meq Er Tablet PO 40 meq BID [facility] Administration Pramipexole Dihydrochloride 1 mg 05/30/25 16:32 06/01/25 16:03 Pramipexole 1 Mg Tablet PO 1 mg TID PRN Administration RLS Rivaroxaban 20 mg 05/29/25 21:50 06/01/25 17:59 Rivaroxaban 20 Mg Tablet PO 20 mg DAILY@1700 [facility] Administration Rosuvastatin Calcium 10 mg 05/29/25 21:50 06/01/25 21:25 Rosuvastatin 10 Mg Tablet PO 10 mg HS [facility] Administration Fluticasone/Salmeterol 2 puff 06/01/25 20:00 06/01/25 20:53 Fluticasone/Salmeterol 115-21 Mcg Inhaler 1 Puff INHALATION 2 puff Q12HRT [facility] Administration Spironolactone 12.5 mg 05/30/25 15:00 06/01/25 08:56 Spironolactone 12.5 Mg Tablet PO 12.5 mg DAILY [facility] Administration Radiology Results: ITS Impressions Chest X-Ray 05/29/25 11:52 IMPRESSION: Interstitial thickening, without focal infiltrate or effusion. Chest CTA 05/29/25 13:30 IMPRESSION: No pulmonary embolus. No thoracic aortic dissection. Redemonstration of mediastinal lymphadenopathy, increased in size from prior examination. Increase in prominence of the mosaic attenuation of the bilateral lung henderson, for which follow-up nonemergent high-resolution CT is recommended, for further characterization. Redemonstration of mediastinal lymphadenopathy. Interval enlargement of the subcarinal lymph node, detected on prior study. Labs Labs: Laboratory Results - last 24 hr 06/01/25 06/01/25 06/01/25 07:35 08:17 11:19 WBC 7.8 RBC 4.30 Hgb 10.6 L Hct 36.5 L MCV 84.9 MCH 24.7 L MCHC 29.0 L RDW 21.2 H Plt Count 222 MPV 10.1 Immature Gran % (Auto) 0.4 Neut % (Auto) 72.6 Lymph % (Auto) 14.5 L Chaves % (Auto) 7.3 Eos % (Auto) 4.4 Baso % (Auto) 0.8 Lymph # (Auto) 1.13 Chaves # (Auto) 0.6 Eos # (Auto) 0.3 Baso # (Auto) 0.1 Abs Immat Gran (auto) 0.03 Absolute Neuts (auto) 5.6 Absolute Nucleated RBC 0.000 Band Neutrophils % Not Reportable Nucleated RBC % 0.0 Platelet Estimate Adequate Hypochromasia 1+ Ovalocytes 1+ Schistocytes None seen Sodium 136 L Potassium 2.9 L Chloride 93 L Carbon Dioxide 35 H Anion Gap 8 BUN 19 H Creatinine 1.10 H Estim Creat Clear Calc 38 Estimated GFR 48 L Glucose 114 H POC Capillary Glucose 111 H 108 H Calcium 9.0 Magnesium 2.2 TSH (Reflex) Random Cortisol U Random Total Protein Ur Random Sodium Ur Random Potassium Ur Random Urea Urine Creatinine Protein/Creat Ratio 2 06/01/25 06/01/25 06/01/25 16:47 19:41 20:35 WBC RBC Hgb Hct MCV MCH MCHC RDW Plt Count MPV Immature Gran % (Auto) Neut % (Auto) Lymph % (Auto) Chaves % (Auto) Eos % (Auto) Baso % (Auto) Lymph # (Auto) Chaves # (Auto) Eos # (Auto) Baso # (Auto) Abs Immat Gran (auto) Absolute Neuts (auto) Absolute Nucleated RBC Band Neutrophils % Nucleated RBC % Platelet Estimate Hypochromasia Ovalocytes Schistocytes Sodium Potassium 3.6 Chloride Carbon Dioxide Anion Gap BUN Creatinine Estim Creat Clear Calc Estimated GFR Glucose POC Capillary Glucose 109 H 149 H Calcium Magnesium TSH (Reflex) Random Cortisol U Random Total Protein Ur Random Sodium Ur Random Potassium Ur Random Urea Urine Creatinine Protein/Creat Ratio 2 06/02/25 06/02/25 06/02/25 04:34 04:34 04:34 WBC RBC Hgb Hct MCV MCH MCHC RDW Plt Count MPV Immature Gran % (Auto) Neut % (Auto) Lymph % (Auto) Chaves % (Auto) Eos % (Auto) Baso % (Auto) Lymph # (Auto) Chaves # (Auto) Eos # (Auto) Baso # (Auto) Abs Immat Gran (auto) Absolute Neuts (auto) Absolute Nucleated RBC Band Neutrophils % Nucleated RBC % Platelet Estimate Hypochromasia Ovalocytes Schistocytes Sodium Potassium Chloride Carbon Dioxide Anion Gap BUN Creatinine Estim Creat Clear Calc Estimated GFR Glucose POC Capillary Glucose Calcium Magnesium TSH (Reflex) Random Cortisol U Random Total Protein 17 17 Ur Random Sodium 9 Ur Random Potassium 55.9 Ur Random Urea 611 Urine Creatinine 85.2 Cancelled Protein/Creat Ratio 2 0.20 06/02/25 05:15 WBC RBC Hgb Hct MCV MCH MCHC RDW Plt Count MPV Immature Gran % (Auto) Neut % (Auto) Lymph % (Auto) Chaves % (Auto) Eos % (Auto) Baso % (Auto) Lymph # (Auto) Chaves # (Auto) Eos # (Auto) Baso # (Auto) Abs Immat Gran (auto) Absolute Neuts (auto) Absolute Nucleated RBC Band Neutrophils % Nucleated RBC % Platelet Estimate Hypochromasia Ovalocytes Schistocytes Sodium 132 L Potassium 3.5 Chloride 94 L Carbon Dioxide 31 H Anion Gap 7 BUN 20 H Creatinine 1.10 H Estim Creat Clear Calc 38 Estimated GFR 48 L Glucose 104 POC Capillary Glucose Calcium 8.9 Magnesium TSH (Reflex) 0.666 Random Cortisol 15.10 U Random Total Protein Ur Random Sodium Ur Random Potassium Ur Random Urea Urine Creatinine Protein/Creat Ratio 2
[2025-06-02] MEDS: GABAPENTIN 300 MG CAPSULE 600 MG PO (08:24)
[2025-06-02] MEDS: PRAMIPEXOLE 1 MG TABLET PO (08:24)
[2025-06-02] MEDS: FLUTICASONE/SALMETEROL 115-21 MCG INHALER 1 PUFF 2 PUFF INHALATION ×2 (08:59→20:28)
[2025-06-02] MEDS: POTASSIUM CHLORIDE 20 MEQ ER TABLET 40 MEQ PO ×2 (10:08→16:34)
--- NOTE | 2025-06-02 10:09 | PC.NURSE ---
Addendum entered by Connie Rico RN 06/02/25 10:11: Morning medication not administered at this time. Original Note: NPO for possible Cardioversion.
[2025-06-02] MEDS: AMIODARONE HCL 200 MG TABLET PO (10:16)
--- NOTE | 2025-06-02 10:19 | PCOTNOTE ---
Per RN, Patient having increased heart rate at rest. Patient is planned to go down for a cardioversion, please hold off at this time.
--- NOTE | 2025-06-02 10:22 | P.PNIM_ITS ---
Progress Note: A&P Assessment and Plan (1) Paroxysmal atrial fibrillation: Code(s): I48.0 - Paroxysmal atrial fibrillation Status: Acute Assessment and Plan: * patient went into Afib 05/31 afternoon with HR 100-110s. 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 Likely due to pulmonary HTN and CARLOS * weaned to RA with rest, but still becoming hypoxic with activity. * Will get home O2 eval once cardiac issues resolve. * patient would benefit from night time oxygen she does have untreated CARLOS (3) Hypokalemia: Code(s): E87.6 - Hypokalemia Status: Acute Assessment and Plan: * Significant hypokalemia despite supplementation. K+ 2.9 today. Mag 2.2. * no GI losses. Does have some decreased appetite. * initially started Aldactone, but held due to low BP * increased scheduled potassium 40meq BID * nephrology was consulted (4) Difficulty swallowing: Code(s): R13.10 - Dysphagia, unspecified Status: Acute Assessment and Plan: * speech eval ordered and passed * GI consulted still reporting difficulty swallowing food is getting stuck * continue PPI (5) Abnormal finding on CT scan: Code(s): R93.89 - Abnormal findings on diagnostic imaging of other specified body structures Status: Acute Assessment and Plan: 05/29 Chest CTA showed No pulmonary embolus.No thoracic aortic dissection. Redemonstration of mediastinal lymphadenopathy, increased in size from prior examination. Increase in prominence of the mosaic attenuation of the bilateral lung henderson, for which follow-up nonemergent high-resolution CT is recommended, for further characterization. Redemonstration of mediastinal lymphadenopathy. Interval enlargement of the subcarinal lymph node, detected on prior study. patient reports history of sarcoidosis * pulmonology consulted * unclear if changes are truly related to ILD. Recommended outpatient high- resolution chest CT, PFTs, walk evaluation and pulmonary rehab. Also ordered hypersensitivity pneumonitis profile. (6) UTI (urinary tract infection): Qualifiers: Hematuria presence: without hematuria Urinary tract infection type: acute cystitis Qualified Code(s): N30.00 - Acute cystitis without hematuria Code(s): N39.0 - Urinary tract infection, site not specified Status: Acute Assessment and Plan: * UA with positive nitrates, 2+ leukocytes, >100 WBC, 4+ bacteria * on IV Rocephin * ECOLI pending sensitivity (7) Chest pain: Code(s): R07.9 - Chest pain, unspecified Status: Acute Assessment and Plan: * Left chest pain, improving * Troponin negative x2 * Less likely ACS/more Pleuritic * cardiology following, recommended outpatient ischemic eval (8) Diastolic heart failure: Code(s): I50.30 - Unspecified diastolic (congestive) heart failure Status: Acute Assessment and Plan: * cardiology following * held Bumex and Aldactone due to low BP and electrolyte abnormalities. Monitor volume status closely. * Fluid restrictions * daily weights * resume diuretics once BP tolerates (9) Type 2 diabetes mellitus: Qualifiers: Diabetes mellitus complication status: without complication Diabetes mellitus halfway insulin use: without radar engineering teacher use Qualified Code(s): E11.9 - Type 2 diabetes mellitus without complications Code(s): E11.9 - Type 2 diabetes mellitus without complications Status: Acute Assessment and Plan: * Continue Jardiance * Accu-Cheks a.c. HS * SSI * Hold metformin * diabetic diet * Hypoglycemic protocol (10) Pulmonary hypertension: Code(s): I27.20 - Pulmonary hypertension, unspecified Status: Acute Assessment and Plan: * may need left and right heart cath as outpatient per cardiology * may need home O2 eval for night O2 Plan Code status: Full code per patient DVT prophylaxis: Xarelto Stress ulcer prophylaxis: Protonix 40 daily PT/OT notes: Pending evaluation Disposition: patient continues admission for atrial fibrillation with intermittent RVR, shortness of breath, UTI, generalized weakness. Current plan is to remain NPO after midnight tonight for possible cardioversion in the a.m.. patient is also waiting consult to GI for difficulty swallowing her food although she did pass her swallow evaluation evidence of aspiration at this time. plan is for patient to return to assisted living once medically stable. Time Spent With Patient Time with patient: 25 - 35 minutes Subjective Date/time seen: 06/02/25 10:22 Interval history: Patient is a 79-year-old female who continues admission for AFib with RVR variable rates in continued shortness of breath with reproducible chest pain ACS ruled out at this time. 06/02/2025: Patient resting comfortably on room air reports SOB improved and denied any CP. HR 98 in AFIB will replace K+ and plan for cardioversion in the morning. Review of Systems Review of Systems: 12 systems were reviewed and are negativ e except for as per HPI. All systems reviewed & are unremarkable except as noted in HPI and below Exam Narrative: General: NAD Eyes: EOMI ENT: neck supple Cardiovascular: Irregularly irregular Respiratory: Clear to auscultation, respirations even and unlabored on RA Gastrointestinal: Soft, non tender Genitourinary: no suprapubic tenderness Musculoskeletal: No edema Skin: warm, dry Neuro: Alert. Psych: Mood appropriate Objective Data Vital Signs Vital Signs: Vital Signs - 24 hr 06/01/25 12:00 06/01/25 14:00 06/01/25 16:00 Temperature 96.3 F L Pulse Rate 98 111 H 111 H Respiratory Rate 17 Blood Pressure 98/70 L Pulse Oximetry 95 Oxygen Delivery 06/01/25 20:35 06/01/25 20:53 06/01/25 22:43 Temperature 99.0 F Pulse Rate 101 H 112 H Respiratory Rate 18 Blood Pressure 86/63 L 94/67 L Pulse Oximetry 92 93 Oxygen Delivery Room Air 06/02/25 05:53 06/02/25 08:00 06/02/25 08:59 Temperature 97.0 F L Pulse Rate 105 H 104 H Respiratory Rate 18 Blood Pressure 109/71 Pulse Oximetry 95 98 Oxygen Delivery Room Air 06/02/25 10:16 Temperature Pulse Rate 104 H Respiratory Rate Blood Pressure Pulse Oximetry Oxygen Delivery Intake/Output Intake/Output: Intake & Output 05/30/25 05/31/25 06/01/25 06/02/25 23:59 23:59 23:59 23:59 Intake Total 3120 860 1072 Output Total 2325 2400 Balance 795 -1540 1072 Meds/Results Medications: Active Medications Generic Name Dose Route Start Last Admin Trade Name Freq PRN Reason Stop Dose Admin Acetaminophen 650 mg 05/29/25 14:27 Acetaminophen 325 Mg Tablet PO Q4H PRN Mild Pain (1-3) or Fever Hydrocodone Bitart/Acetaminophen 1 tab 05/29/25 14:27 Hydrocodone/Acetaminophen (*Crx) 5-325 Mg Tablet PO Q4H PRN Moderate Pain (4-6) Amiodarone HCl 200 mg 05/31/25 09:00 06/02/25 10:16 Amiodarone Hcl 200 Mg Tablet PO 200 mg DAILY KERLINE Administration Bumetanide 1 mg 05/30/25 09:00 06/01/25 08:55 Bumetanide 1 Mg Tablet PO 1 mg BID KERLINE Administration Dextrose 12.5 gm 05/29/25 23:04 Dextrose 50% 25 Gm/50 Ml Syringe IV PUSH PRN PRN Hypoglycemia Protocol Docusate Sodium 100 mg 05/29/25 17:00 06/01/25 17:59 Docusate Sodium 100 Mg Capsule PO 100 mg BID KERLINE Administration Empagliflozin 10 mg 05/30/25 09:00 06/01/25 08:56 Empagliflozin 10 Mg Tablet PO 10 mg DAILY KERLINE Administration Fluoxetine HCl 40 mg 05/30/25 09:00 06/01/25 08:56 Fluoxetine Hcl 20 Mg Capsule PO 40 mg DAILY KERLINE Administration Gabapentin 600 mg 05/30/25 16:32 06/02/25 08:24 Gabapentin 300 Mg Capsule PO 600 mg TID PRN Administration RLS Glucagon 1 mg 05/29/25 23:04 Glucagon For Inj 1 Mg Vial IM PRN PRN Hypoglycemia Protocol Glucose 15 gm 05/29/25 23:04 Glucose Oral Gel 15 Gm Of Glucse In 37.5 Gm Tube PO PRN PRN Hypoglycemia Protocol Ceftriaxone Sodium 1 gm/ 50 mls @ 100 mls/hr 05/30/25 19:00 06/01/25 18:58 Sodium Chloride IVPB 100 mls/hr Q24H KERLINE Administration Dextrose 1,000 mls @ 100 mls/hr 05/29/25 23:04 Dextrose 5% 1,000 Ml IVPB PRN PRN Hypoglycemia Protocol Insulin Aspart 2 - 5 units 05/30/25 08:00 06/02/25 08:25 Insulin Aspart (*Bkc) 100 Units/Ml SUB-Q Not Given TIDWM [facility] Protocol Insulin Aspart 1 - 2 units 05/30/25 21:00 06/01/25 21:41 Insulin Aspart (*Bkc) 100 Units/Ml SUB-Q Not Given HS [facility] Protocol Levothyroxine Sodium 125 mcg 05/30/25 06:30 06/02/25 06:22 Levothyroxine Sodium 125 Mcg Tablet BY MOUTH Not Given DAILY@0630 [facility] Metoprolol Tartrate 5 mg 05/31/25 15:52 Metoprolol Tartrate Inj 5 Mg/5 Ml Vial IV PUSH Q6H PRN Tachycardia Nitroglycerin 0.4 mg 05/29/25 14:27 Nitroglycerin Sl 0.4 Mg Tablet SUBLINGUAL Q5MIN PRN Chest Pain Ondansetron HCl 4 mg 05/29/25 14:08 06/01/25 22:43 Ondansetron Inj 4 Mg/2 Ml Vial IV PUSH 4 mg Q4H PRN Administration Nausea Pantoprazole Sodium 20 mg 06/02/25 09:00 Pantoprazole Sod Sesquihydrate 20 Mg Tab PO QAM KERLINE Potassium Chloride 40 meq 06/01/25 17:00 06/02/25 10:08 Potassium Chloride 20 Meq Er Tablet PO 40 meq BID KERLINE Administration Pramipexole Dihydrochloride 1 mg 05/30/25 16:32 06/02/25 08:24 Pramipexole 1 Mg Tablet PO 1 mg TID PRN Administration RLS Rivaroxaban 20 mg 05/29/25 21:50 06/01/25 17:59 Rivaroxaban 20 Mg Tablet PO 20 mg DAILY@1700 KERLINE Administration Rosuvastatin Calcium 10 mg 05/29/25 21:50 06/01/25 21:25 Rosuvastatin 10 Mg Tablet PO 10 mg HS KERLINE Administration Fluticasone/Salmeterol 2 puff 06/01/25 20:00 06/02/25 08:59 Fluticasone/Salmeterol 115-21 Mcg Inhaler 1 Puff INHALATION 2 puff Q12HRT KERLINE Administration Spironolactone 12.5 mg 05/30/25 15:00 06/01/25 08:56 Spironolactone 12.5 Mg Tablet PO 12.5 mg DAILY KERLINE Administration Radiology Results: ITS Impressions Chest X-Ray 05/29/25 11:52 IMPRESSION: Interstitial thickening, without focal infiltrate or effusion. Chest CTA 05/29/25 13:30 IMPRESSION: No pulmonary embolus. No thoracic aortic dissection. Redemonstration of mediastinal lymphadenopathy, increased in size from prior examination. Increase in prominence of the mosaic attenuation of the bilateral lung henderson, for which follow-up nonemergent high-resolution CT is recommended, for further characterization. Redemonstration of mediastinal lymphadenopathy. Interval enlargement of the subcarinal lymph node, detected on prior study. Labs Labs: Laboratory Results - last 24 hr 06/01/25 06/01/25 06/01/25 11:19 16:47 19:41 Sodium Potassium Chloride Carbon Dioxide Anion Gap BUN Creatinine Estim Creat Clear Calc Estimated GFR Glucose POC Capillary Glucose 108 H 109 H 149 H Calcium TSH (Reflex) Random Cortisol U Random Total Protein Ur Random Sodium Ur Random Potassium Ur Random Urea Urine Creatinine Protein/Creat Ratio 2 06/01/25 06/02/25 06/02/25 20:35 04:34 04:34 Sodium Potassium 3.6 Chloride Carbon Dioxide Anion Gap BUN Creatinine Estim Creat Clear Calc Estimated GFR Glucose POC Capillary Glucose Calcium TSH (Reflex) Random Cortisol U Random Total Protein 17 17 Ur Random Sodium 9 Ur Random Potassium 55.9 Ur Random Urea 611 Urine Creatinine 85.2 Protein/Creat Ratio 2 06/02/25 06/02/25 06/02/25 04:34 05:15 07:33 Sodium 132 L Potassium 3.5 Chloride 94 L Carbon Dioxide 31 H Anion Gap 7 BUN 20 H Creatinine 1.10 H Estim Creat Clear Calc 38 Estimated GFR 48 L Glucose 104 POC Capillary Glucose 113 H Calcium 8.9 TSH (Reflex) 0.666 Random Cortisol 15.10 U Random Total Protein Ur Random Sodium Ur Random Potassium Ur Random Urea Urine Creatinine Cancelled Protein/Creat Ratio 2 0.20 Quality VTE Prophylaxis VTE prophylaxis: pharmacologic ordered -Patient's previous records reviewed on admission -ER notes reviewed in detail on admission -discussed all findings and current treatment plan with patient/Family/POA -Consultations reviewed for recommendations -Patient's disposition for safe discharge discussed with pillowcase cleaner Dictation performed by [employer] direct speech recognition software, therefore tuckpointer variants and typographical errors may occur. Hospitalist MIPS Advance Care Plan I have confirmed that the patient's Advanced Care Plan is present, code status is documented, or surrogate decision maker is listed in patient medical record.: Yes Medication Reconciliation I have utilized all available resources to obtain, update and review the patients current medications (includes all prescriptions, OTC, herbals, cannabis, and nutritional supplements).: Yes The patient is not eligible for med reconciliation; the patient is in a emergent medical situation where delaying treatment would jeopardize the patients health.: No
--- NOTE | 2025-06-02 10:34 | WPDHPUPDATE1 ---
History and Physical Update Update Date/Time: 06/02/25 10:34 History and Physical has been reviewed, including an updated exam of the patient. There are NO changes in the patient's condition. Risks, benefits, and alternatives have been discussed and questions answered. Patient agrees to proceed with procedure.
--- NOTE | 2025-06-02 10:35 | P.SEDATION_ITS ---
Moderate Sedation Note-Pt Data Patient Data Allergies Allergy/AdvReac Type Severity Reaction Status Date / Time Sulfa (Sulfonamide Allergy Intermediate Rash Verified 05/29/25 11:38 Antibiotics) nitrofurantoin (From Allergy itching Verified 05/29/25 11:38 Macrobid) Home Medications ?Medication ?Instructions ?Recorded ?Confirmed ?Type rivaroxaban 20 mg tablet (Xarelto) 20 mg PO DAILY 10/14/19 05/29/25 History vitamins A,C,P-ozjn-wxhzej 4,296 1 cap PO BID 11/08/20 05/29/25 History mcg-226 mg-90 mg capsule (PreserVision AREDS) acetaminophen 650 mg 1,300 mg PO Q12H pain 05/05/22 05/29/25 History tablet,extended release gabapentin 600 mg tablet 600 mg PO TID #270 tabs 09/03/24 05/29/25 Rx metformin 500 mg tablet 500 mg PO BID #180 tabs 11/05/24 05/29/25 Rx levothyroxine 125 mcg tablet See Rx Instructions .Route 11/30/24 05/29/25 Rx .COMPLEX #90 tabs rosuvastatin 10 mg tablet (Crestor) 10 mg PO DAILY #90 tabs 11/30/24 05/29/25 Rx fluoxetine 20 mg capsule (Prozac) 40 mg (2 x 20 mg) PO DAILY #180 12/17/24 05/29/25 Rx caps pramipexole 1 mg tablet 1 mg PO TID #270 tabs 02/09/25 05/29/25 Rx omeprazole 20 mg capsule,delayed 20 mg PO BID #180 caps 02/18/25 05/29/25 Rx release ferrous sulfate 325 mg (65 mg 325 mg PO EVERY OTHER DAY 05/07/25 05/29/25 History iron) tablet (FeroSul) potassium chloride 20 mEq 20 meq PO BID 05/07/25 05/29/25 History tablet,extended release bumetanide 2 mg tablet 1 mg (1/2 x 2 mg) PO BID #90 tabs 05/20/25 05/29/25 Rx amiodarone 200 mg tablet 200 mg PO Q12H 05/29/25 05/29/25 History empagliflozin 10 mg tablet 10 mg PO DAILY 05/29/25 05/29/25 History (Jardiance) Current Medications: Active Medications Acetaminophen (Acetaminophen 325 Mg Tablet) 650 mg PO Q4H PRN PRN Reason: Mild Pain (1-3) or Fever Hydrocodone Bitart/Acetaminophen (Hydrocodone/Acetaminophen (*Crx) 5-325 Mg Tablet) 1 tab PO Q4H PRN PRN Reason: Moderate Pain (4-6) Amiodarone HCl (Amiodarone Hcl 200 Mg Tablet) 200 mg PO DAILY [facility] Last Admin: 06/02/25 10:16 Dose: 200 mg Bumetanide (Bumetanide 1 Mg Tablet) 1 mg PO BID [facility] Last Admin: 06/01/25 08:55 Dose: 1 mg Dextrose (Dextrose 50% 25 Gm/50 Ml Syringe) 12.5 gm IV PUSH PRN PRN; Protocol PRN Reason: Hypoglycemia Docusate Sodium (Docusate Sodium 100 Mg Capsule) 100 mg PO BID [facility] Last Admin: 06/01/25 17:59 Dose: 100 mg Empagliflozin (Empagliflozin 10 Mg Tablet) 10 mg PO DAILY [facility] Last Admin: 06/01/25 08:56 Dose: 10 mg Fluoxetine HCl (Fluoxetine Hcl 20 Mg Capsule) 40 mg PO DAILY [facility] Last Admin: 06/01/25 08:56 Dose: 40 mg Gabapentin (Gabapentin 300 Mg Capsule) 600 mg PO TID PRN PRN Reason: RLS Last Admin: 06/02/25 08:24 Dose: 600 mg Glucagon (Glucagon For Inj 1 Mg Vial) 1 mg IM PRN PRN; Protocol PRN Reason: Hypoglycemia Glucose (Glucose Oral Gel 15 Gm Of Glucse In 37.5 Gm Tube) 15 gm PO PRN PRN; Protocol PRN Reason: Hypoglycemia Ceftriaxone Sodium 1 gm/ (Sodium Chloride) 50 mls @ 100 mls/hr IVPB Q24H [facility] Last Admin: 06/01/25 18:58 Dose: 100 mls/hr Dextrose (Dextrose 5% 1,000 Ml) 1,000 mls @ 100 mls/hr IVPB PRN PRN; Protocol PRN Reason: Hypoglycemia Insulin Aspart (Insulin Aspart (*Bkc) 100 Units/Ml) 2 - 5 units SUB-Q TIDWM [facility]; Protocol Last Admin: 06/02/25 08:25 Dose: Not Given Insulin Aspart (Insulin Aspart (*Bkc) 100 Units/Ml) 1 - 2 units SUB-Q HS [facility]; Protocol Last Admin: 06/01/25 21:41 Dose: Not Given Levothyroxine Sodium (Levothyroxine Sodium 125 Mcg Tablet) 125 mcg BY MOUTH DAILY@0630 [facility] Last Admin: 06/02/25 06:22 Dose: Not Given Metoprolol Tartrate (Metoprolol Tartrate Inj 5 Mg/5 Ml Vial) 5 mg IV PUSH Q6H PRN PRN Reason: Tachycardia Nitroglycerin (Nitroglycerin Sl 0.4 Mg Tablet) 0.4 mg SUBLINGUAL Q5MIN PRN PRN Reason: Chest Pain Ondansetron HCl (Ondansetron Inj 4 Mg/2 Ml Vial) 4 mg IV PUSH Q4H PRN PRN Reason: Nausea Last Admin: 06/01/25 22:43 Dose: 4 mg Pantoprazole Sodium (Pantoprazole Sod Sesquihydrate 20 Mg Tab) 20 mg PO QAM [facility] Potassium Chloride (Potassium Chloride 20 Meq Er Tablet) 40 meq PO BID [facility] Last Admin: 06/02/25 10:08 Dose: 40 meq Pramipexole Dihydrochloride (Pramipexole 1 Mg Tablet) 1 mg PO TID PRN PRN Reason: RLS Last Admin: 06/02/25 08:24 Dose: 1 mg Rivaroxaban (Rivaroxaban 20 Mg Tablet) 20 mg PO DAILY@1700 [facility] Last Admin: 06/01/25 17:59 Dose: 20 mg Rosuvastatin Calcium (Rosuvastatin 10 Mg Tablet) 10 mg PO HS [facility] Last Admin: 06/01/25 21:25 Dose: 10 mg Fluticasone/Salmeterol (Fluticasone/Salmeterol 115-21 Mcg Inhaler 1 Puff) 2 puff INHALATION Q12HRT [facility] Last Admin: 06/02/25 08:59 Dose: 2 puff Spironolactone (Spironolactone 12.5 Mg Tablet) 12.5 mg PO DAILY [facility] Last Admin: 06/01/25 08:56 Dose: 12.5 mg Sedation/Anesthesia: No previous sedation/anesthesia problems (including family history). [facility] Past Medical History Medical History (Updated 06/01/25 @ 13:50 by ANA Frank) History of sarcoidosis Pulmonary hypertension Paroxysmal atrial fibrillation Chronic anemia Diastolic heart failure Echocardiogram June 2024: Difficult study with LVH, EF of 50 55%, grade 1 diastolic dysfunction and moderate left atrial enlargement with mild pulmonary hypertension Other hyperlipidemia Restless leg syndrome Hx of arteriovenous malformation (AVM) Iron deficiency anemia CARLOS (obstructive sleep apnea) Intolerant to CPAP Post-menopausal Depression Colonoscopy planned Gastro-esophageal reflux Type 2 diabetes mellitus Hypothyroidism Essential hypertension Surgical History Surgical History Status post cataract extraction of both eyes with insertion of intraocular lens History of right shoulder replacement History of toe surgery History of arthroscopy of knee Family History Family History Mother Family history of lung cancer Family history of lung disease Father Family history of arthritis Family history of heart disease in male family member before age 55 Family history of cardiovascular disease Sibling Family history of malignant neoplasm of breast in first degree relative Carcinoma of colon Breast cancer Daughter Breast cancer Social History Social History (Updated 05/17/25 @ 15:04 by Chula Bui PA-C) Social History: Patient moved to [facility] March 2025. She is a lifelong nonsmoker and denies any history of alcohol use. Her and her raised 1 son and 4 daughters. 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 Gender identity (if verbalized by the patient): Female Spiritual care concerns: No Mod Sed Physical Exam Physical Exam Pre Procedural Exam: Normal: Lungs and Variation: Heart Rate (Tachycardic) and Heart Rhythm (Irregularly irregular rhythm) Hours since solid foods: 12 Hours since liquid intake: 12 Mallampati Classification: class III Internal Medicine - PN: Obj Da Vital Signs Vital Signs: Vital Signs - 24 hr 06/01/25 12:00 06/01/25 14:00 06/01/25 16:00 Temperature 35.7 C L Pulse Rate 98 111 H 111 H Respiratory Rate 17 Blood Pressure 98/70 L Pulse Oximetry 95 Oxygen Delivery 06/01/25 20:35 06/01/25 20:53 06/01/25 22:43 Temperature 37.2 C Pulse Rate 101 H 112 H Respiratory Rate 18 Blood Pressure 86/63 L 94/67 L Pulse Oximetry 92 93 Oxygen Delivery Room Air 06/02/25 05:53 06/02/25 08:00 06/02/25 08:59 Temperature 36.1 C L Pulse Rate 105 H 104 H Respiratory Rate 18 Blood Pressure 109/71 Pulse Oximetry 95 98 Oxygen Delivery Room Air 06/02/25 10:16 Temperature Pulse Rate 104 H Respiratory Rate Blood Pressure Pulse Oximetry Oxygen Delivery Intake/Output Intake/Output: Intake & Output 05/30/25 05/31/25 06/01/25 06/02/25 23:59 23:59 23:59 23:59 Intake Total 3120 860 1072 Output Total 2323 2400 Balance 795 -1540 1072 Meds/Results Medications: Active Medications Generic Name Dose Route Start Last Admin Trade Name Freq PRN Reason Stop Dose Admin Acetaminophen 650 mg 05/29/25 14:27 Acetaminophen 325 Mg Tablet PO Q4H PRN Mild Pain (1-3) or Fever Hydrocodone Bitart/Acetaminophen 1 tab 05/29/25 14:27 Hydrocodone/Acetaminophen (*Crx) 5-325 Mg Tablet PO Q4H PRN Moderate Pain (4-6) Amiodarone HCl 200 mg 05/31/25 09:00 06/02/25 10:16 Amiodarone Hcl 200 Mg Tablet PO 200 mg DAILY [facility]ER[facility] Administration Bumetanide 1 mg 05/30/25 09:00 06/01/25 08:55 Bumetanide 1 Mg Tablet PO 1 mg BID [facility] Administration Dextrose 12.5 gm 05/29/25 23:04 Dextrose 50% 25 Gm/50 Ml Syringe IV PUSH PRN PRN Hypoglycemia Protocol Docusate Sodium 100 mg 05/29/25 17:00 06/01/25 17:59 Docusate Sodium 100 Mg Capsule PO 100 mg BID [facility] Administration Empagliflozin 10 mg 05/30/25 09:00 06/01/25 08:56 Empagliflozin 10 Mg Tablet PO 10 mg DAILY [facility] Administration Fluoxetine HCl 40 mg 05/30/25 09:00 06/01/25 08:56 Fluoxetine Hcl 20 Mg Capsule PO 40 mg DAILY [facility] Administration Gabapentin 600 mg 05/30/25 16:32 06/02/25 08:24 Gabapentin 300 Mg Capsule PO 600 mg TID PRN Administration RLS Glucagon 1 mg 05/29/25 23:04 Glucagon For Inj 1 Mg Vial IM PRN PRN Hypoglycemia Protocol Glucose 15 gm 05/29/25 23:04 Glucose Oral Gel 15 Gm Of Glucse In 37.5 Gm Tube PO PRN PRN Hypoglycemia Protocol Ceftriaxone Sodium 1 gm/ 50 mls @ 100 mls/hr 05/30/25 19:00 06/01/25 18:58 Sodium Chloride IVPB 100 mls/hr Q24H [facility] Administration Dextrose 1,000 mls @ 100 mls/hr 05/29/25 23:04 Dextrose 5% 1,000 Ml IVPB PRN PRN Hypoglycemia Protocol Insulin Aspart 2 - 5 units 05/30/25 08:00 06/02/25 08:25 Insulin Aspart (*Bkc) 100 Units/Ml SUB-Q Not Given TIDWM [facility] Protocol Insulin Aspart 1 - 2 units 05/30/25 21:00 06/01/25 21:41 Insulin Aspart (*Bkc) 100 Units/Ml SUB-Q Not Given HS [facility] Protocol Levothyroxine Sodium 125 mcg 05/30/25 06:30 06/02/25 06:22 Levothyroxine Sodium 125 Mcg Tablet BY MOUTH Not Given DAILY@0630 [facility] Metoprolol Tartrate 5 mg 05/31/25 15:52 Metoprolol Tartrate Inj 5 Mg/5 Ml Vial IV PUSH Q6H PRN Tachycardia Nitroglycerin 0.4 mg 05/29/25 14:27 Nitroglycerin Sl 0.4 Mg Tablet SUBLINGUAL Q5MIN PRN Chest Pain Ondansetron HCl 4 mg 05/29/25 14:08 06/01/25 22:43 Ondansetron Inj 4 Mg/2 Ml Vial IV PUSH 4 mg Q4H PRN Administration Nausea Pantoprazole Sodium 20 mg 06/02/25 09:00 Pantoprazole Sod Sesquihydrate 20 Mg Tab PO QAM [facility] Potassium Chloride 40 meq 06/01/25 17:00 06/02/25 10:08 Potassium Chloride 20 Meq Er Tablet PO 40 meq BID [facility] Administration Pramipexole Dihydrochloride 1 mg 05/30/25 16:32 06/02/25 08:24 Pramipexole 1 Mg Tablet PO 1 mg TID PRN Administration RLS Rivaroxaban 20 mg 05/29/25 21:50 06/01/25 17:59 Rivaroxaban 20 Mg Tablet PO 20 mg DAILY@1700 [facility] Administration Rosuvastatin Calcium 10 mg 05/29/25 21:50 06/01/25 21:25 Rosuvastatin 10 Mg Tablet PO 10 mg HS [facility] Administration Fluticasone/Salmeterol 2 puff 06/01/25 20:00 06/02/25 08:59 Fluticasone/Salmeterol 115-21 Mcg Inhaler 1 Puff INHALATION 2 puff Q12HRT [facility] Administration Spironolactone 12.5 mg 05/30/25 15:00 06/01/25 08:56 Spironolactone 12.5 Mg Tablet PO 12.5 mg DAILY [facility] Administration Radiology Results: ITS Impressions Chest X-Ray 05/29/25 11:52 IMPRESSION: Interstitial thickening, without focal infiltrate or effusion. Chest CTA 05/29/25 13:30 IMPRESSION: No pulmonary embolus. No thoracic aortic dissection. Redemonstration of mediastinal lymphadenopathy, increased in size from prior examination. Increase in prominence of the mosaic attenuation of the bilateral lung henderson, for which follow-up nonemergent high-resolution CT is recommended, for further characterization. Redemonstration of mediastinal lymphadenopathy. Interval enlargement of the subcarinal lymph node, detected on prior study. Labs 06/01/25 08:17 06/02/25 05:15 Labs: Laboratory Results - last 24 hr 06/01/25 06/01/25 06/01/25 11:19 16:47 19:41 Sodium Potassium Chloride Carbon Dioxide Anion Gap BUN Creatinine Estim Creat Clear Calc Estimated GFR Glucose POC Capillary Glucose 108 H 109 H 149 H Calcium TSH (Reflex) Random Cortisol U Random Total Protein Ur Random Sodium Ur Random Potassium Ur Random Urea Urine Creatinine Protein/Creat Ratio 2 06/01/25 06/02/25 06/02/25 20:35 04:34 04:34 Sodium Potassium 3.6 Chloride Carbon Dioxide Anion Gap BUN Creatinine Estim Creat Clear Calc Estimated GFR Glucose POC Capillary Glucose Calcium TSH (Reflex) Random Cortisol U Random Total Protein 17 17 Ur Random Sodium 9 Ur Random Potassium 55.9 Ur Random Urea 611 Urine Creatinine 85.2 Protein/Creat Ratio 2 06/02/25 06/02/25 06/02/25 04:34 05:15 07:33 Sodium 132 L Potassium 3.5 Chloride 94 L Carbon Dioxide 31 H Anion Gap 7 BUN 20 H Creatinine 1.10 H Estim Creat Clear Calc 38 Estimated GFR 48 L Glucose 104 POC Capillary Glucose 113 H Calcium 8.9 TSH (Reflex) 0.666 Random Cortisol 15.10 U Random Total Protein Ur Random Sodium Ur Random Potassium Ur Random Urea Urine Creatinine Cancelled Protein/Creat Ratio 2 0.20 ASA Classification/Sedation ASA Classification/Sedation ASA Class: III Emergent: No Risks: Risks, benefits and alternatives explained and patient/family accepted plan for sedation. Patient re-evaluated immediately prior to sedation.
--- NOTE | 2025-06-02 12:20 | P.CONNP_ITS ---
Assessment and Plan Assessment and plan (1) Hypokalemia: Code(s): E87.6 - Hypokalemia Status: Acute Assessment and Plan: * as noted on admission * better by labs this AM (06/02) * diuretics on hold * on K+ supplementation * no previous history noted * etiology not entirely clear... * outpatient diuretic could be partly responsible * magnesium was okay * no reported GI symptoms (nausea/vomiting/diarrhea) * possible total body store depletion from recent hospitalization? * renal loss? * checking aldosterone, urine studies (to calciulate TTKG), TSH, and cortisol * HOWEVER, interpretation of these test results maybe difficult in the context of a normal potassium at this time * agree with spironolactone (or amiloride) if BP can tolerate * continue potassium supplementation as is (2) Acute kidney injury: Code(s): N17.9 - Acute kidney failure, unspecified Status: Acute Assessment and Plan: * noted on admission * slow improvement noted * suspect due to overdiuresis and possible relative hypotension +/- contrast exposure * follow trend of creatinine/renal function (3) Paroxysmal atrial fibrillation: Code(s): I48.0 - Paroxysmal atrial fibrillation Status: Acute Assessment and Plan: * noted * clinically symptomatic at this time * noted plans for possible cardioversion * Cardiology following (4) Urinary tract infection: Code(s): N39.0 - Urinary tract infection, site not specified Status: Acute Assessment and Plan: * suggestive by admission UA * urine culture with E. coli * on antibiotics (5) Diastolic heart failure: Code(s): I50.30 - Unspecified diastolic (congestive) heart failure Status: Acute Assessment and Plan: * appears relatively stable at this time * last Echo noted * significant pulmonary hypertension noted * diuretics on hold given relative hypotension * will eventually need to restart * follow volume and respiratory status closely (6) Essential hypertension: Code(s): I10 - Essential (primary) hypertension Status: Chronic Assessment and Plan: * runnning on the soft side * diuretics on hold * partly due to afib(?) * follow trend of hemodynamics (7) Type 2 diabetes mellitus: Qualifiers: Diabetes mellitus complication status: without complication Diabetes mellitus long term care social worker insulin use: without senior living use Qualified Code(s): E11.9 - Type 2 diabetes mellitus without complications Code(s): E11.9 - Type 2 diabetes mellitus without complications Status: Chronic Assessment and Plan: * follow accu-cheks * glycemic control per hospitalist I will continue to follow the patient with you while he remains hospitalized and make further recommendations as deemed necessary. Thank you for allowing me to participate in the care of this patient. L History of Present Illness Reason for Consult Consult date: 06/02/25 Reason for consult: hypokalemia Chief Complaint Chief complaint: Hypoxia, mosaic attentuation on imaging History of Present Illness Narrative: The patient is a 79-year-old female with a past medical history as outlined below who presented to [facility] Emergency Room several days ago with complaints of shortness of breath and left-sided chest pain. The symptoms have been going on since her recent hospital discharge from [facility] not too long ago. She states that her shortness of breath is more pronounced with deep inspiration and this also results in significant chest discomfort. As the symptoms continued to progressively get worse, she presented to the ER for further assessment. Workup and evaluation emergency room demonstrated the patient be hemodynamically stable but she was noted be hypoxic which improved with application of supplemental oxygen by nasal cannula. Routine blood work was significant for a white blood cell count 12.2, hemoglobin 11.6, potassium of 2.8, creatinine of 1.62 elevated proBNP, and a urinalysis highly suggestive of urinary tract infection. Viral testing for influenza, RSV, and COVID were negative as well. Imaging including a CT scan of the chest showed re-demonstration of mediastinal lymphadenopathy which was increased in size from prior examination and prominence of the mosaic attenuation of the bilateral lung henderson. She was subsequently admitted to the hospital for further evaluation therapy. Since her admission, she has been seen by Cardiology and has been ruled out for a myocardial infarction. His felt that her chest pain is his parole pleuritic in nature rather than associated with acute coronary syndrome. She was initiated on IV diuretic therapy as was felt that she was also in heart failure. Her atrial fibrillation was also an issue and attempts have been made to rate control this issue but she is somewhat symptomatic from being in atrial fibrillation and that there has been attempts to try and cardiovert her during this hospital admission. Furthermore, her potassium level has been somewhat difficult to correct despite aggressive potassium supplementation as well as the fact that diuretics were discontinued due to her relative hypotension. Renal consultation was requested due to her persistent hypokalemia. In spite of her significantly low potassium level on admission, her repeat labs today show her potassium level to be doing somewhat better although this has required significant potassium supplementation in the last few days. Attempts to correct potassium level with spironolactone were not completely successful or difficult to ascertain as this had to be discontinued due to her relative hypotension in effort to try and optimize her hemodynamics for better rate control medications. As far as I can tell and from my discussion with the patient, she has never had any issues or problems with hypokalemia before and even during her previous hospitalization [facility] a few weeks ago, her potassium level was relatively stable. Currently, at the time my evaluation, she does not appear to be any acute distress. Review of Systems 2 Review of Systems: As per HPI. [facility] Past Medical History Medical History (Updated 06/03/25 @ 06:52 by Dayna Natarajan MD) Chronic anemia Diastolic heart failure Echocardiogram June 2024: Difficult study with LVH, EF of 50 55%, grade 1 diastolic dysfunction and moderate left atrial enlargement with mild pulmonary hypertension Restless leg syndrome History of sarcoidosis Hx of arteriovenous malformation (AVM) Iron deficiency anemia CARLOS (obstructive sleep apnea) Intolerant to CPAP Other hyperlipidemia Post-menopausal Pulmonary hypertension Paroxysmal atrial fibrillation Depression Colonoscopy planned Gastro-esophageal reflux Type 2 diabetes mellitus Hypothyroidism Essential hypertension Surgical History Surgical History Status post cataract extraction of both eyes with insertion of intraocular lens History of right shoulder replacement History of toe surgery History of arthroscopy of knee Family History Family History Mother Family history of lung cancer Family history of lung disease Father Family history of arthritis Family history of heart disease in male family member before age 55 Family history of cardiovascular disease Sibling Family history of malignant neoplasm of breast in first degree relative Carcinoma of colon Breast cancer Daughter Breast cancer Social History Social History (Updated 05/17/25 @ 15:04 by Chula Bui PA-C) Social History: Patient moved to [facility] March 2025. She is a lifelong nonsmoker and denies any history of alcohol use. Her and her raised 1 son and 4 daughters. 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 Gender identity (if verbalized by the patient): Female Spiritual care concerns: No Meds Home Medications and Allergies Home Medications ?Medication ?Instructions ?Recorded ?Confirmed ?Type rivaroxaban 20 mg tablet (Xarelto) 20 mg PO DAILY 10/14/19 05/29/25 History vitamins A,C,L-eyji-tnmsqf 4,296 1 cap PO BID 11/08/20 05/29/25 History mcg-226 mg-90 mg capsule (PreserVision AREDS) acetaminophen 650 mg 1,300 mg PO Q12H pain 05/05/22 05/29/25 History tablet,extended release gabapentin 600 mg tablet 600 mg PO TID #270 tabs 09/03/24 05/29/25 Rx metformin 500 mg tablet 500 mg PO BID #180 tabs 11/05/24 05/29/25 Rx levothyroxine 125 mcg tablet See Rx Instructions .Route 11/30/24 05/29/25 Rx .COMPLEX #90 tabs rosuvastatin 10 mg tablet (Crestor) 10 mg PO DAILY #90 tabs 11/30/24 05/29/25 Rx fluoxetine 20 mg capsule (Prozac) 40 mg (2 x 20 mg) PO DAILY #180 12/17/24 05/29/25 Rx caps pramipexole 1 mg tablet 1 mg PO TID #270 tabs 02/09/25 05/29/25 Rx omeprazole 20 mg capsule,delayed 20 mg PO BID #180 caps 02/18/25 05/29/25 Rx release ferrous sulfate 325 mg (65 mg 325 mg PO EVERY OTHER DAY 05/07/25 05/29/25 History iron) tablet (FeroSul) potassium chloride 20 mEq 20 meq PO BID 05/07/25 05/29/25 History tablet,extended release bumetanide 2 mg tablet 1 mg (1/2 x 2 mg) PO BID #90 tabs 05/20/25 05/29/25 Rx amiodarone 200 mg tablet 200 mg PO Q12H 05/29/25 05/29/25 History empagliflozin 10 mg tablet 10 mg PO DAILY 05/29/25 05/29/25 History (Jardiance) Allergies Allergy/AdvReac Type Severity Reaction Status Date / Time Sulfa (Sulfonamide Allergy Intermediate Rash Verified 05/29/25 11:38 Antibiotics) nitrofurantoin (From Allergy itching Verified 05/29/25 11:38 Macrobid) Vital Signs Vital Signs Temp Pulse Resp BP Pulse Ox O2 Del Method 06/02/25 12:00 98 06/02/25 10:16 104 H 06/02/25 08:59 98 Room Air 06/02/25 08:00 104 H 06/02/25 05:53 97.0 F L 105 H 18 109/71 95 06/01/25 22:43 112 H 94/67 L 06/01/25 20:53 93 Room Air 06/01/25 20:35 99.0 F 101 H 18 86/63 L 92 Exam 2 Narrative: GENERAL APPEARANCE: elderly but well developed well nourished female in no acute distress HEENT: normocephalic, atraumatic, normal conjunctiva and sclera, nares patient NECK: no lymphadenopathy, thyromegaly, or JVD MOUTH: normal lips, teeth, and gums CARDIOVASCULAR: irregularly irregular, normal S1 and S2, no rub RESPIRATORY: clear anteriorly; decreased at bases ABDOMEN: soft, nontender, nondistended, positive bowel sounds present EXTREMITIES: no evidence of cyanosis, clubbing, trace edema NEUROLOGICAL: alert and oriented x 3; CN II - XII intact bilaterally; no focal deficits noted Results Lab Results 06/03/25 05:00 06/03/25 05:00 Lab results: Most recent lab results Calcium 8.9 mg/dL (8.4-10.2) 06/02/25 05:15 Magnesium 2.2 mg/dL (1.6-2.3) 06/01/25 08:17 Urine Creatinine 85.2 mg/dL 06/02/25 04:34 Urine Creatinine Cancelled 06/02/25 04:34
--- NOTE | 2025-06-02 13:10 | PCOTNOTE ---
Per RN, Patient still has not gone down for the cardioversion. Patient having increased heart rates at rest with no activity. Please try back tomorrow.
[2025-06-02] MEDS: EMPAGLIFLOZIN 10 MG TABLET PO (14:22)
[2025-06-02] MEDS: POTASSIUM CHLORIDE INJ 40 MEQ in SODIUM CHLORIDE 0.9% IV 500 ML 130 MEQ IVPB (14:22)
[2025-06-02] MEDS: PANTOPRAZOLE SOD SESQUIHYDRATE 20 MG TAB PO (14:23)
[2025-06-02] MEDS: DOCUSATE SODIUM 100 MG CAPSULE PO ×2 (14:23→16:34)
[2025-06-02] MEDS: RIVAROXABAN 20 MG TABLET PO (16:34)
--- NOTE | 2025-06-02 18:49 | WPDGICN ---
Assessment and Plan Assessment and plan (1) Difficulty swallowing: Code(s): R13.10 - Dysphagia, unspecified Status: Acute Assessment and Plan: chronic given other issues going on- hypokalemia, afib with possible cardioversion tomorrow, pulmonary htn, etc I do not think that she is a candidate to have EGD at this point and undergo anesthesia this is something that we can reassess in later future if still is a problem CT scan also noted mediastinal LN- by primary team (2) Paroxysmal atrial fibrillation: Code(s): I48.0 - Paroxysmal atrial fibrillation Status: Acute Assessment and Plan: by turbine room attendant (3) Pulmonary hypertension: Code(s): I27.20 - Pulmonary hypertension, unspecified Status: Acute (4) Hypokalemia: Code(s): E87.6 - Hypokalemia Status: Acute Assessment and Plan: repleting with iv (5) Acute exacerbation of chronic heart failure: Code(s): I50.9 - Heart failure, unspecified Status: Acute Assessment and Plan: treated GI Consult Note Consult date/time: 06/02/25 18:49 Reason for consult: dysphagia HPI: Nikole Osorio is a 79 year old female with history of AFib, pulmonary hypertension, diastolic heart failure, CARLOS, iron deficiency anemia, diabetes type 2 hyperthyroidism presents the hospital with shortness of breath and left-sided chest pain 4 days ago, she is being managed with amiodarone for afib and xarelto by turbine room attendant, also persistent hypokalemia in replacement and using oxygen with diastolic HF and pulmonary HTN, turbine room attendant planning possible cardioversion tomorrow because afib. She has been having sometimes food getting stuck in chest for over a year, had egd but years ago. Review of Systems Constitutional: Constitutional: Denies chills Eyes: Eyes: Denies blurry vision ENT: Reports Normal hearing present Cardiovascular: Cardiovascular: Reports chest pain Respiratory: Respiratory: Reports dyspnea on exertion Gastrointestinal: Gastrointestinal: Denies abdominal pain Genitourinary: Genitourinary: Denies hematuria Musculoskeletal: Musculoskeletal: Denies neck pain Integumentary/Breasts: Skin/Breast: Denies rash Neurologic: Denies Abnormal speech present [facility] Past Medical History Medical History (Updated 06/01/25 @ 13:50 by ANA Frank) History of sarcoidosis Pulmonary hypertension Paroxysmal atrial fibrillation Chronic anemia Diastolic heart failure Echocardiogram June 2024: Difficult study with LVH, EF of 50 55%, grade 1 diastolic dysfunction and moderate left atrial enlargement with mild pulmonary hypertension Other hyperlipidemia Restless leg syndrome Hx of arteriovenous malformation (AVM) Iron deficiency anemia CARLOS (obstructive sleep apnea) Intolerant to CPAP Post-menopausal Depression Colonoscopy planned Gastro-esophageal reflux Type 2 diabetes mellitus Hypothyroidism Essential hypertension Surgical History Surgical History Status post cataract extraction of both eyes with insertion of intraocular lens History of right shoulder replacement History of toe surgery History of arthroscopy of knee Family History Family History Mother Family history of lung cancer Family history of lung disease Father Family history of arthritis Family history of heart disease in male family member before age 55 Family history of cardiovascular disease Sibling Family history of malignant neoplasm of breast in first degree relative Carcinoma of colon Breast cancer Daughter Breast cancer Social History Social History (Updated 05/17/25 @ 15:04 by Chula Bui PA-C) Social History: [facility]. She is a lifelong nonsmoker and denies any history of alcohol use. Her and her raised 1 son and 4 daughters. 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 Gender identity (if verbalized by the patient): Female Spiritual care concerns: No Meds Home Medications and Allergies Home Medications ?Medication ?Instructions ?Recorded ?Confirmed ?Type rivaroxaban 20 mg tablet (Xarelto) 20 mg PO DAILY 10/14/19 05/29/25 History vitamins A,C,P-qawo-ljivtm 4,296 1 cap PO BID 11/08/20 05/29/25 History mcg-226 mg-90 mg capsule (PreserVision AREDS) acetaminophen 650 mg 1,300 mg PO Q12H pain 05/05/22 05/29/25 History tablet,extended release gabapentin 600 mg tablet 600 mg PO TID #270 tabs 09/03/24 05/29/25 Rx metformin 500 mg tablet 500 mg PO BID #180 tabs 11/05/24 05/29/25 Rx levothyroxine 125 mcg tablet See Rx Instructions .Route 11/30/24 05/29/25 Rx .COMPLEX #90 tabs rosuvastatin 10 mg tablet (Crestor) 10 mg PO DAILY #90 tabs 11/30/24 05/29/25 Rx fluoxetine 20 mg capsule (Prozac) 40 mg (2 x 20 mg) PO DAILY #180 12/17/24 05/29/25 Rx caps pramipexole 1 mg tablet 1 mg PO TID #270 tabs 02/09/25 05/29/25 Rx omeprazole 20 mg capsule,delayed 20 mg PO BID #180 caps 02/18/25 05/29/25 Rx release ferrous sulfate 325 mg (65 mg 325 mg PO EVERY OTHER DAY 05/07/25 05/29/25 History iron) tablet (FeroSul) potassium chloride 20 mEq 20 meq PO BID 05/07/25 05/29/25 History tablet,extended release bumetanide 2 mg tablet 1 mg (1/2 x 2 mg) PO BID #90 tabs 05/20/25 05/29/25 Rx amiodarone 200 mg tablet 200 mg PO Q12H 05/29/25 05/29/25 History empagliflozin 10 mg tablet 10 mg PO DAILY 05/29/25 05/29/25 History (Jardiance) Allergies Allergy/AdvReac Type Severity Reaction Status Date / Time Sulfa (Sulfonamide Allergy Intermediate Rash Verified 05/29/25 11:38 Antibiotics) nitrofurantoin (From Allergy itching Verified 05/29/25 11:38 Macrobid) Vital Signs Vital Signs - 24 hr 06/01/25 20:35 06/01/25 20:53 06/01/25 22:43 Temperature 99.0 F Pulse Rate 101 H 112 H Respiratory Rate 18 Blood Pressure 86/63 L 94/67 L Pulse Oximetry 92 93 Oxygen Delivery Room Air 06/02/25 05:53 06/02/25 08:00 06/02/25 08:59 Temperature 97.0 F L Pulse Rate 105 H 104 H Respiratory Rate 18 Blood Pressure 109/71 Pulse Oximetry 95 98 Oxygen Delivery Room Air 06/02/25 10:16 06/02/25 12:00 06/02/25 14:00 Temperature 97.9 F Pulse Rate 104 H 98 98 Respiratory Rate 16 Blood Pressure 94/61 L Pulse Oximetry 90 Oxygen Delivery 06/02/25 16:00 Temperature Pulse Rate 90 Respiratory Rate Blood Pressure Pulse Oximetry Oxygen Delivery Exam Narrative: General: NAD Eyes: EOMI ENT: neck supple Cardiovascular: Irregularly irregular Respiratory: Clear to auscultation, respirations even and unlabored on RA Gastrointestinal: Soft, non tender Genitourinary: no suprapubic tenderness Musculoskeletal: No edema Skin: warm, dry Neuro: Alert. Psych: Mood appropriate Results Labs 06/01/25 08:17 06/02/25 05:15 Labs: BMP 06/01/25 06/02/25 20:35 05:15 Sodium 132 L Potassium 3.6 3.5 Chloride 94 L Carbon Dioxide 31 H BUN 20 H Creatinine 1.10 H Glucose 104 Calcium 8.9
[2025-06-02] MEDS: cefTRIAXone 1 GM in SODIUM CHLORIDE 0.9% IV 50 ML 100 ML IVPB (20:00)
[2025-06-02] MEDS: ROSUVASTATIN 10 MG TABLET PO (20:01)
[2025-06-03] VITALS (9 sets, daily range): BP systolic 100; BP diastolic 48; PULSE 68–95; RESP 18; TEMP 36.8; O2SAT 91–98
[2025-06-03] MEDS: GABAPENTIN 300 MG CAPSULE 600 MG PO ×2 (00:40→11:07)
[2025-06-03] MEDS: PRAMIPEXOLE 1 MG TABLET PO ×2 (00:40→11:08)
[2025-06-03] MEDS: PIPERACILLIN/TAZOBACTAM SOD 2.25 GM in SODIUM CHLORIDE 0.9% IV 50 ML 100 ML IVPB ×2 (02:41→08:33)
[2025-06-03] MEDS: LEVOTHYROXINE SODIUM 125 MCG TABLET BY MOUTH (05:43)
[2025-06-03 06:17] LABS: Hematocrit 31.1 % (37.0-47.0); Hemoglobin 8.9 g/dL (12.0-15.0); Mean Corpuscular HGB Conc 28.6 g/dl (32-36); Mean Corpuscular Hemoglobin 24.9 pg (26-34); Mean Corpuscular Volume 87.1 fl (80-100); Platelet Count Result 201 k/mm3 (150-375); Red Blood Count 3.57 M/mm3 (4.2-5.4); White Blood Count 7.0 K/mm3 (4.5-10.0)
[2025-06-03 06:44] LABS: Alanine Aminotransferase 13 U/L (6-35); Albumin Level 3.3 g/dL (3.5-5.1); Alkaline Phosphatase 85 U/L (38-126); Anion Gap 6 mmol/L (4-12); Aspartate Amino Transferase 31 U/L (14-36); Bilirubin,Total 0.4 mg/dL (0.2-1.3); Blood Urea Nitrogen 15 mg/dL (7-17); Calcium 8.9 mg/dL (8.4-10.2); Carbon Dioxide 29 mmol/L (22-30); Chloride 100 mmol/L (98-107); Estimated CRCL calculation 42 ml/min; Estimated Glomerular Filt Rate 52; Glucose 98 mg/dL (65-110); Magnesium 2.2 mg/dL (1.6-2.3); Potassium 4.5 mmol/L (3.4-5.0); Sodium 135 mmol/L (137-145); Total Protein 6.6 g/dL (6.3-8.2)
--- NOTE | 2025-06-03 07:01 | P.PNCA_ITS ---
Progress Note: A&P Assessment and Plan (1) Chest pain: Code(s): R07.9 - Chest pain, unspecified Status: Acute (2) Acute exacerbation of chronic heart failure: Code(s): I50.9 - Heart failure, unspecified Status: Acute (3) Paroxysmal atrial fibrillation: Code(s): I48.0 - Paroxysmal atrial fibrillation Status: Acute (4) Pulmonary hypertension: Code(s): I27.20 - Pulmonary hypertension, unspecified Status: Acute Plan 79-year-old woman with chronic diastolic heart failure, paroxysmal atrial fibrillation (now on amiodarone as well as Xarelto), severe pulmonary hypertension (by echo), diabetes, and obstructive sleep apnea is presented with left-sided chest pain Chest pain -ruled out for MT -clinically appears to be pleuritic in nature -can follow up outpatient for possible ischemic eval-she wants to transition her care from [facility] to our practice. We will arrange for outpatient follow-up in our office Chronic diastolic heart failure -Bumex on hold -fluid restriction to 1.5 L per day while hospitalized -Renal function 1.03. Continue daily BMP -Jardiance 10 mg p.o. daily -Resume spironolactone Severe pulmonary hypertension -if she continues to have significant shortness of breath and exertional symptoms despite optimal diuresis, right and left heart catheterization may be warranted. This can be done as an outpatient. Paroxysmal atrial fibrillation-converted to sinus rhythm last night -Continue amiodarone 200 mg p.o. daily and Xarelto 20 mg every evening with dinner Obstructive sleep apnea -recommend CPAP compliance Subjective Date/time seen: 06/03/25 07:01 Interval history: Reason for encounter: AFib with RVR Interval history: Patient converted back to sinus rhythm last night and remains in sinus rhythm this morning with heart rate in the 70s. She denies any palpitations, chest pain, dizziness, shortness of breath. Telemetry shows sinus rhythm with rates in the 70s. Review of Systems Cardiovascular: Cardiovascular: Reports as per HPI Respiratory: Respiratory: Reports as per HPI Exam Narrative: General: Alert oriented x3, no acute distress Neck: Supple, no JVD Chest: Bilaterally clear to auscultation, no rales or rhonchi Cardiac: S1, S2 +, irregularly irregular rhythm, no murmurs or rubs Extremities: Bilateral lower extremity edema 1+, no skin rash Neurologic: Alert and oriented x3, no focal neurological deficits Const: General: comfortable HENMT: Mouth: Yes moist mucous membranes Eyes: EOM: EOMs intact bilaterally Neck: Neck: no JVD Resp: Effort & Inspection: normal respiratory effort Auscultation: rales Cardio: Rate: regular rate Rhythm: abnormal rhythm irregularly irregular Skin: General skin exam: ecchymosis and erythema Neuro: Speech: normal speech Extrem: General: no pedal edema Objective Data Vital Signs Vital Signs: Vital Signs - 24 hr 06/02/25 08:00 06/02/25 08:59 06/02/25 10:16 Temperature Pulse Rate 104 H 104 H Respiratory Rate Blood Pressure Pulse Oximetry 98 Oxygen Delivery Room Air Fraction of Inspired Oxygen 06/02/25 12:00 06/02/25 14:00 06/02/25 16:00 Temperature 36.6 C Pulse Rate 98 98 90 Respiratory Rate 16 Blood Pressure 94/61 L Pulse Oximetry 90 Oxygen Delivery Fraction of Inspired Oxygen 06/02/25 19:44 06/02/25 20:00 06/02/25 20:00 Temperature 36.9 C Pulse Rate 78 76 Respiratory Rate 17 Blood Pressure 100/66 Pulse Oximetry 97 Oxygen Delivery Room Air Fraction of Inspired Oxygen 06/02/25 20:28 06/02/25 20:31 06/03/25 00:00 Temperature Pulse Rate 73 72 75 Respiratory Rate 20 20 Blood Pressure Pulse Oximetry 92 Oxygen Delivery Room Air Fraction of Inspired Oxygen 21 06/03/25 04:00 06/03/25 04:45 Temperature 36.8 C Pulse Rate 74 75 Respiratory Rate 18 Blood Pressure 100/48 L Pulse Oximetry 91 Oxygen Delivery Fraction of Inspired Oxygen Intake/Output Intake/Output: Intake & Output 05/31/25 06/01/25 06/02/25 06/03/25 23:59 23:59 23:59 23:59 Intake Total 860 1122 870 50 Output Total 2400 Balance -1540 1122 870 50 Meds/Results Medications: Active Medications Generic Name Dose Route Start Last Admin Trade Name Freq PRN Reason Stop Dose Admin Acetaminophen 650 mg 05/29/25 14:27 Acetaminophen 325 Mg Tablet PO Q4H PRN Mild Pain (1-3) or Fever Hydrocodone Bitart/Acetaminophen 1 tab 05/29/25 14:27 Hydrocodone/Acetaminophen (*Crx) 5-325 Mg Tablet PO Q4H PRN Moderate Pain (4-6) Amiodarone HCl 200 mg 05/31/25 09:00 06/02/25 10:16 Amiodarone Hcl 200 Mg Tablet PO 200 mg DAILY KERLINE Administration Bumetanide 1 mg 05/30/25 09:00 06/01/25 08:55 Bumetanide 1 Mg Tablet PO 1 mg BID KERLINE Administration Dextrose 12.5 gm 05/29/25 23:04 Dextrose 50% 25 Gm/50 Ml Syringe IV PUSH PRN PRN Hypoglycemia Protocol Docusate Sodium 100 mg 05/29/25 17:00 06/02/25 16:34 Docusate Sodium 100 Mg Capsule PO 100 mg BID KERLINE Administration Empagliflozin 10 mg 05/30/25 09:00 06/02/25 14:22 Empagliflozin 10 Mg Tablet PO 10 mg DAILY KERLINE Administration Fluoxetine HCl 40 mg 05/30/25 09:00 06/02/25 14:23 Fluoxetine Hcl 20 Mg Capsule PO 40 mg DAILY KERLINE Administration Gabapentin 600 mg 05/30/25 16:32 06/03/25 00:40 Gabapentin 300 Mg Capsule PO 600 mg TID PRN Administration RLS Glucagon 1 mg 05/29/25 23:04 Glucagon For Inj 1 Mg Vial IM PRN PRN Hypoglycemia Protocol Glucose 15 gm 05/29/25 23:04 Glucose Oral Gel 15 Gm Of Glucse In 37.5 Gm Tube PO PRN PRN Hypoglycemia Protocol Dextrose 1,000 mls @ 100 mls/hr 05/29/25 23:04 Dextrose 5% 1,000 Ml IVPB PRN PRN Hypoglycemia Protocol Piperacillin Sod/Tazobactam 50 mls @ 100 mls/hr 06/03/25 02:15 06/03/25 03:11 Sod 2.25 gm/ Sodium Chloride IVPB Infused Q6HR KERLINE Infusion Insulin Aspart 2 - 5 units 05/30/25 08:00 06/02/25 18:12 Insulin Aspart (*Bkc) 100 Units/Ml SUB-Q Not Given TIDWM [facility] Protocol Insulin Aspart 1 - 2 units 05/30/25 21:00 06/02/25 22:08 Insulin Aspart (*Bkc) 100 Units/Ml SUB-Q Not Given HS [facility] Protocol Levothyroxine Sodium 125 mcg 05/30/25 06:30 06/03/25 05:43 Levothyroxine Sodium 125 Mcg Tablet BY MOUTH 125 mcg DAILY@0630 KERLINE Administration Metoprolol Tartrate 5 mg 05/31/25 15:52 Metoprolol Tartrate Inj 5 Mg/5 Ml Vial IV PUSH Q6H PRN Tachycardia Nitroglycerin 0.4 mg 05/29/25 14:27 Nitroglycerin Sl 0.4 Mg Tablet SUBLINGUAL Q5MIN PRN Chest Pain Ondansetron HCl 4 mg 05/29/25 14:08 06/01/25 22:43 Ondansetron Inj 4 Mg/2 Ml Vial IV PUSH 4 mg Q4H PRN Administration Nausea Pantoprazole Sodium 20 mg 06/02/25 09:00 06/02/25 14:23 Pantoprazole Sod Sesquihydrate 20 Mg Tab PO 20 mg QAM KERLINE Administration Potassium Chloride 40 meq 06/01/25 17:00 06/02/25 16:34 Potassium Chloride 20 Meq Er Tablet PO 40 meq BID KERLINE Administration Pramipexole Dihydrochloride 1 mg 05/30/25 16:32 06/03/25 00:40 Pramipexole 1 Mg Tablet PO 1 mg TID PRN Administration RLS Rivaroxaban 20 mg 05/29/25 21:50 06/02/25 16:34 Rivaroxaban 20 Mg Tablet PO 20 mg DAILY@1700 [facility] Administration Rosuvastatin Calcium 10 mg 05/29/25 21:50 06/02/25 20:01 Rosuvastatin 10 Mg Tablet PO 10 mg HS KERLINE Administration Fluticasone/Salmeterol 2 puff 06/01/25 20:00 06/02/25 20:28 Fluticasone/Salmeterol 115-21 Mcg Inhaler 1 Puff INHALATION 2 puff Q12HRT KERLINE Administration Spironolactone 12.5 mg 05/30/25 15:00 06/01/25 08:56 Spironolactone 12.5 Mg Tablet PO 12.5 mg DAILY KERLINE Administration Radiology Results: ITS Impressions Chest X-Ray 05/29/25 11:52 IMPRESSION: Interstitial thickening, without focal infiltrate or effusion. Chest CTA 05/29/25 13:30 IMPRESSION: No pulmonary embolus. No thoracic aortic dissection. Redemonstration of mediastinal lymphadenopathy, increased in size from prior examination. Increase in prominence of the mosaic attenuation of the bilateral lung henderson, for which follow-up nonemergent high-resolution CT is recommended, for further characterization. Redemonstration of mediastinal lymphadenopathy. Interval enlargement of the subcarinal lymph node, detected on prior study. Labs Labs: Laboratory Results - last 24 hr 06/02/25 06/02/25 06/02/25 05:15 07:33 11:43 WBC RBC Hgb Hct MCV MCH MCHC RDW Plt Count MPV Sodium Potassium Chloride Carbon Dioxide Anion Gap BUN Creatinine Estim Creat Clear Calc Estimated GFR Glucose POC Capillary Glucose 113 H 111 H Calcium Magnesium Total Bilirubin AST ALT Alkaline Phosphatase Total Protein Albumin TSH (Reflex) 0.666 Random Cortisol 15.10 06/02/25 06/02/25 06/03/25 16:45 19:42 05:00 WBC 7.0 RBC 3.57 L Hgb 8.9 L Hct 31.1 L MCV 87.1 MCH 24.9 L MCHC 28.6 L RDW 21.5 H Plt Count 201 MPV 10.9 H Sodium 135 L Potassium 4.5 Chloride 100 Carbon Dioxide 29 Anion Gap 6 BUN 15 D Creatinine 1.03 H Estim Creat Clear Calc 42 Estimated GFR 52 L Glucose 98 POC Capillary Glucose 113 H 160 H Calcium 8.9 Magnesium 2.2 Total Bilirubin 0.4 AST 31 ALT 13 Alkaline Phosphatase 85 Total Protein 6.6 Albumin 3.3 L TSH (Reflex) Random Cortisol
[2025-06-03] MEDS: EMPAGLIFLOZIN 10 MG TABLET PO (08:30)
[2025-06-03] MEDS: AMIODARONE HCL 200 MG TABLET PO (08:30)
[2025-06-03] MEDS: DOCUSATE SODIUM 100 MG CAPSULE PO ×2 (08:30→16:26)
[2025-06-03] MEDS: PANTOPRAZOLE SOD SESQUIHYDRATE 20 MG TAB PO (08:30)
[2025-06-03] MEDS: POTASSIUM CHLORIDE 20 MEQ ER TABLET 40 MEQ PO ×2 (08:32→16:26)
[2025-06-03] MEDS: FLUTICASONE/SALMETEROL 115-21 MCG INHALER 1 PUFF 2 PUFF INHALATION (08:48)
[2025-06-03] MEDS: ACETAMINOPHEN 325 MG TABLET 650 MG PO (11:07)
--- NOTE | 2025-06-03 11:40 | PM.DS ---
DS: Admitting Diagnosis Discharge Date 06/03/2025 Admitting Diagnosis chest pain/ atrial fibrillation with RVR/ pulmonary hypertension/ hypokalemia/ diastolic heart failure/ UTI DS: Discharge Diagnosis Discharge Diagnosis (1) Paroxysmal atrial fibrillation: Code(s): I48.0 - Paroxysmal atrial fibrillation Status: Acute (2) Acute respiratory failure with hypoxia: Code(s): J96.01 - Acute respiratory failure with hypoxia Status: Acute (3) Hypokalemia: Code(s): E87.6 - Hypokalemia Status: Acute (4) Difficulty swallowing: Code(s): R13.10 - Dysphagia, unspecified Status: Acute (5) Abnormal finding on CT scan: Code(s): R93.89 - Abnormal findings on diagnostic imaging of other specified body structures Status: Acute (6) UTI (urinary tract infection): Qualifiers: Hematuria presence: without hematuria Urinary tract infection type: acute cystitis Qualified Code(s): N30.00 - Acute cystitis without hematuria Code(s): N39.0 - Urinary tract infection, site not specified Status: Acute (7) Chest pain: Code(s): R07.9 - Chest pain, unspecified Status: Acute (8) Diastolic heart failure: Code(s): I50.30 - Unspecified diastolic (congestive) heart failure Status: Acute (9) Type 2 diabetes mellitus: Qualifiers: Diabetes mellitus complication status: without complication Diabetes mellitus superintendent container terminal insulin use: without superintendent container terminal use Qualified Code(s): E11.9 - Type 2 diabetes mellitus without complications Code(s): E11.9 - Type 2 diabetes mellitus without complications Status: Chronic (10) Pulmonary hypertension: Code(s): I27.20 - Pulmonary hypertension, unspecified Status: Acute DS: Summary Hospital Course Reason for hospitalization: chest pain/ atrial fibrillation with RVR/ pulmonary hypertension/ hypokalemia/ diastolic heart failure/ UTI Hospital Course: Admission: Patient was a 79-year-old female past medical history of AFib, pulmonary hypertension, diastolic heart failure, CARLOS, iron deficiency anemia, diabetes type 2 hyperthyroidism presents the hospital with shortness of breath and left-sided chest pain. Patient complains of frequent coughing hard to tell if it is new or old patient is poor historian. She states that she has chest pain when she breathes in. Patient is requiring oxygen 2 L nasal cannula her breath sounds are clear. Patient denied fever chills. In the ED: Lab work shows leukocytosis at 12.2 hemoglobin 11.6 potassium 2.8, BUN of 29, creatinine of 1.62 with baseline being 0.7 GFR 31, proBNP of 6 year 11, UA shows cloudy positive for nitrates 2+ leukocyte esterase over 100 wbc's and 4+ bacteria. Influenza A/B, RSV, COVID negative. CT chest showed redemonstration of mediastinal lymphadenopathy, increased in size from prior examination. Increase in prominence of the mosaic attenuation of the bilateral lung henderson, for which follow-up nonemergent high-resolution CT is recommended, for further characterization. Hospital Course: Patient was admitted to the medical unit for further evaluation and treatment of chest pain, abnormal finding on CT scan, UTI come AFib with RVR, and hypokalemia. cardiology and pulmonology were consulted for further evaluation treatment. patient had continued negative troponins cardiology ruled out NH clinically appear to be more pleuritic in nature but did recommend she continue to have symptomatic shortness of breath with exertion she could arrange for an outpatient ischemic evaluation with L/R heart catheterization. patient continued to have episodes of atrial fibrillation with variable heart rates in symptomatic tachycardia however she was continued on her amiodarone as well replacement of her electrolytes potassium was extremely low on admission. Cardiology had planned for cardioversion if patient unable to convert back to sinus rhythm once electrolytes were stabilized however patient was able to convert back to sinus rhythm on own with medical management of amiodarone and replacement of electrolytes. patient was weaned to room air 98% had a home O2 evaluation to evaluate for any need for supplemental oxygen p.r.n. with exertion however patient did not meet any needs likely was secondary to patient's atrial fibrillation And severe pulmonary hypertension. during patient's hospitalization her Bumex was held due to acute kidney injury as well as hypokalemia but continued on her Jardiance. Upon discharge patient's electrolytes had been replenished and was she was continued on her Bumex 1 mg b.i.d. with an increase to her oral potassium supplement to 40 mEq b.i.d. and to follow up outpatient for repeat labs. patient also found to have a urinary tract infection which grew ESBL was sensitive to oral Macrobid however patient has history of severe itching she had been switch to IV Zosyn and on day of discharge gave single-dose IV gentamicin patient asymptomatic. spoke with patient regarding the need for follow-up sleep study she does have a history of CARLOS but reports she has been noncompliant with her CPAP unable to wear the pillow device I recommended a follow-up sleep study outpatient and compliance with CPAP due to her severe pulmonary hypertension and history of atrial fibrillation. Patient did have reports of dysphagia was evaluated by speech therapy with no aspiration risk and GI consulted but needed no current diagnostic evaluation which could be performed outpatient once her current acute symptoms had resolved if the problem persists. patient had a physical and occupational evaluation appeared back to her baseline no need for p.r.n. oxygen with activity and was discharged back to her assisted living facility. Status at Discharge Functional status at discharge: uses cane/walker Overall status at discharge: patient is back to baseline Time Spent with Patient Time attestation: Total time spent providing and/or coordinating discharge services: Time spent: Greater than 30 minutes Exam Narrative: General: NAD Eyes: EOMI ENT: neck supple Cardiovascular: Irregularly irregular Respiratory: Clear to auscultation, respirations even and unlabored on RA Gastrointestinal: Soft, non tender Genitourinary: no suprapubic tenderness Musculoskeletal: No edema Skin: warm, dry Neuro: Alert. Psych: Mood appropriate DS: Data Data Completed and Pending Labs on day of discharge: Labs from last 24 hours 06/03/25 06/03/25 06/02/25 07:44 05:00 19:42 WBC 7.0 RBC 3.57 L Hgb 8.9 L Hct 31.1 L MCV 87.1 MCH 24.9 L MCHC 28.6 L RDW 21.5 H Plt Count 201 MPV 10.9 H Sodium 135 L Potassium 4.5 Chloride 100 Carbon Dioxide 29 Anion Gap 6 BUN 15 D Creatinine 1.03 H Estim Creat Clear Calc 42 Estimated GFR 52 L Glucose 98 POC Capillary Glucose 100 160 H Calcium 8.9 Magnesium 2.2 Total Bilirubin 0.4 AST 31 ALT 13 Alkaline Phosphatase 85 Total Protein 6.6 Albumin 3.3 L 06/02/25 06/02/25 16:45 11:43 WBC RBC Hgb Hct MCV MCH MCHC RDW Plt Count MPV Sodium Potassium Chloride Carbon Dioxide Anion Gap BUN Creatinine Estim Creat Clear Calc Estimated GFR Glucose POC Capillary Glucose 113 H 111 H Calcium Magnesium Total Bilirubin AST ALT Alkaline Phosphatase Total Protein Albumin Preliminary micro results at discharge 05/29/25 14:49 Blood Culture - Preliminary Blood 05/29/25 13:55 Blood Culture - Preliminary Blood Imaging Radiologist's impression: Radiology Results: ITS Impressions Chest X-Ray 05/29/25 11:52 IMPRESSION: Interstitial thickening, without focal infiltrate or effusion. Chest CTA 05/29/25 13:30 IMPRESSION: No pulmonary embolus. No thoracic aortic dissection. Redemonstration of mediastinal lymphadenopathy, increased in size from prior examination. Increase in prominence of the mosaic attenuation of the bilateral lung henderson, for which follow-up nonemergent high-resolution CT is recommended, for further characterization. Redemonstration of mediastinal lymphadenopathy. Interval enlargement of the subcarinal lymph node, detected on prior study. Discharge Plan Discharge Attending physician on discharge: Britton Cagle Consulting providers: Katheryn Mcdaniel; Ana Cardona; Karie Reynolds Natalie J.; Dayna Natarajan; Ross Ballard; Love Cheek Discharging Clinician: Love Cheek Anticipated Discharge Date/Time: 06/03/25 11:07 Patient Disposition: NH Assisted/Asst Living Activity: as tolerated Diet: diabetic Discharge Instructions: 1). Care Coordination: Patient to have [facility] for PT/OT eval and treat, and custodial. Their phone number is [phone], if you have any questions; they will contact you to schedule their first visit. RN Please fax discharge instructions to [phone]. 2). Atrial fibrillation you currently converted back to sinus rhythm continue with your amiodarone 200 mg daily and Xarelto 20 mg every evening 3). SOB/ pulmonary hypertension/ diastolic heart failure cardiology recommends if you continue to have exertional shortness a breath even with the use of your diuretic they can schedule outpatient heart catheterization for further evaluation Call immigration patrol inspector for follow-up appointment you may resume your Bumex and Jardiance at this time encouraged low-sodium diet encourage monitoring weight and to report any significant weight gain 4). obstructive sleep apnea I recommend CPAP compliance How can you care for yourself at home? ? Keep track of any new symptoms or changes in your symptoms. ? Rest until you feel better. ? Be safe with medicines. Take your medicines exactly as prescribed. Call your doctor if you think you are having a problem with your medicine. ? Do not drive after taking a prescription pain medicine. ? Ensure to follow-up with primary care physician as indicated and provide updated medication list provided to you at discharge. When should you call for help? Call 911 anytime you think you may need emergency care. For example, call if: ? You passed out (lost consciousness). Call your doctor now or seek immediate medical care if: ? You have new symptoms like fever, difficulty breathing, Chest pain, vomiting, or rash. ? You have new or different pain. ? You are confused and are having trouble thinking clearly. ? Your symptoms are getting worse. Watch closely for changes in your health, and be sure to contact your doctor if: ? You do not get better as expected. Patient Instructions: Antibiotic Form, Heart Failure (DC), A-fib (Atrial Fibrillation) (DC), Sleep Apnea (GEN), Pulmonary Arterial Hypertension (DC) Patient Language: Egyptian Stand Alone Forms: General Discharge Information Follow-up/Referrals: Eloina Erazo [Other] - 2 Weeks [facility] [place] [facility] [place] [Provider Group] (Follow up in 1 month for A fib. ) Ana Cardona MD [Physician] - Call for Appointment Discharge Medications: New amiodarone [Pacerone] 200 mg Tablet 200 mg PO DAILY Qty: 30 0RF docusate sodium 100 mg Capsule 100 mg PO BID Qty: 60 0RF fluticasone propion-salmeterol [Advair HFA] 115-21 mcg/actuation Hfa Aerosol Inhaler 2 puff inhalation Q12HRT Qty: 12 0RF spironolactone 25 mg tablet 12.5 mg PO DAILY Qty: 30 0RF Continued PreserVision AREDS [id number] capsule 1 cap PO BID Xarelto 20 mg tablet 20 mg PO DAILY Rx Instructions: take each evening bumetanide 2 mg tablet 1 mg PO BID Qty: 90 0RF ferrous sulfate [FeroSul] 325 mg (65 mg iron) tablet 325 mg PO EVERY OTHER DAY Jardiance 10 mg tablet 10 mg PO DAILY acetaminophen 650 mg tablet extended release 1,300 mg PO Q12H metformin 500 mg tablet 500 mg PO BID Qty: 180 3RF rosuvastatin [Crestor] 10 mg tablet 10 mg PO DAILY Qty: 90 1RF fluoxetine [Prozac] 20 mg capsule 40 mg PO DAILY Qty: 180 1RF omeprazole 20 mg capsule,delayed release(DR/EC) 20 mg PO BID Qty: 180 3RF Changed pramipexole 1 mg tablet 1 mg PO TID PRN (Reason: restless leg(s)) Qty: 270 1RF gabapentin 600 mg tablet 600 mg PO TID PRN (Reason: nerve pain) Qty: 270 1RF potassium chloride 20 mEq tablet extended release 40 meq PO BID Qty: 120 0RF Discontinued amiodarone 200 mg tablet 200 mg PO Q12H Patient Comments: Began taking on the . is to take twice a day for a week then once daily after that. No Action levothyroxine 125 mcg tablet See Rx Instructions .ROUTE .COMPLEX Qty: 90 1RF Dose Instruction: TAKE 1 TABLET BY MOUTH DAILY Rx Instructions: TAKE 1 TABLET BY MOUTH DAILY Date of admission: 05/29/25 17:57 Primary Care Provider: Eloina Erazo Admitting Provider: Carolina Adams Attending physician on admission: Carolina Adams Condition: Improved Quality VTE Prophylaxis VTE prophylaxis: pharmacologic ordered -Patient's previous records reviewed on admission -ER notes reviewed in detail on admission -discussed all findings and current treatment plan with patient/Family/POA -Consultations reviewed for recommendations -Patient's disposition for safe discharge discussed with case planner Dictation performed by [employer] direct speech recognition software, therefore public information relations manager variants and typographical errors may occur. Hospitalist ROSITA Heart Failure (Exclusion) Patient has history of Heart Transplant or Left Ventricular Assistive Device?: No IF YES, STOP HERE Heart Failure (Qualifier) Patient has current or prior documentation of LVEF less than or equal to 40%, or mod/servere depressed LVSF?: No IF NO, STOP HERE
[2025-06-03] MEDS: GENTAMICIN SULFATE INJ 340 MG in DEXTROSE 5% 100 ML 100 MG IVPB (13:21)
--- NOTE | 2025-06-03 13:48 | P.PNNP_ITS ---
Progress Note: A&P Assessment and Plan (1) Hypokalemia: Code(s): E87.6 - Hypokalemia Status: Acute Assessment and Plan: * as noted on admission * resolved * diuretics on hold * on K+ supplementation * no previous history noted * etiology not entirely clear... * outpatient diuretic could be partly responsible * magnesium was okay * no reported GI symptoms (nausea/vomiting/diarrhea) * possible total body store depletion from recent hospitalization? * renal loss? * evaluation to date noted: * aldosterone, renin, and urine studies (to calculate TTKG) pending -- HOWEVER, interpretation of these test results maybe difficult in the context of a normal potassium at this time * TSH and cortisol okay * agree with spironolactone (or amiloride) if BP can tolerate * continue potassium supplementation as is (2) Acute kidney injury: Code(s): N17.9 - Acute kidney failure, unspecified Status: Acute Assessment and Plan: * noted on admission * slow improvement noted * suspect due to overdiuresis and possible relative hypotension +/- contrast exposure * follow trend of creatinine/renal function (3) Paroxysmal atrial fibrillation: Code(s): I48.0 - Paroxysmal atrial fibrillation Status: Acute Assessment and Plan: * resolved (NSR at this time) * was clinically symptomatic when present * no plans for cardioversion at this time * Cardiology following (4) Urinary tract infection: Code(s): N39.0 - Urinary tract infection, site not specified Status: Acute Assessment and Plan: * suggestive by admission UA * urine culture with E. coli * on antibiotics (5) Diastolic heart failure: Code(s): I50.30 - Unspecified diastolic (congestive) heart failure Status: Acute Assessment and Plan: * appears relatively stable at this time * last Echo noted * significant pulmonary hypertension noted * diuretics on hold given relative hypotension * will eventually need to restart * follow volume and respiratory status closely (6) Essential hypertension: Code(s): I10 - Essential (primary) hypertension Status: Chronic Assessment and Plan: * runnning on the soft side * diuretics on hold * partly due to afib(?) * follow trend of hemodynamics (7) Type 2 diabetes mellitus: Qualifiers: Diabetes mellitus complication status: without complication Diabetes mellitus correction insulin use: without correction use Qualified Code(s): E11.9 - Type 2 diabetes mellitus without complications Code(s): E11.9 - Type 2 diabetes mellitus without complications Status: Chronic Assessment and Plan: * follow accu-cheks * glycemic control per hospitalist Will continue to follow. L Subjective Date/time seen: 06/03/25 13:48 Interval history: Follow-up for acute hypokalemia. Potassium appears stable if not improved with current therapy/interventions; converted to NSR overnight so no need for cardioversion today; no other acute complaints voiced at the time of my visit; noted plans for tentative discharge today. Exam 2 Narrative: General: elderly but WD/WN female in NAD Heart: normal S1 and S2; no rub Lungs: clear anteriorly Abdomen: soft, nontender, nondistended, positive bowel sounds Extremities: no cyanosis or clubbing; trace edema Skin: warm and dry Objective Data Vital Signs Vital Signs: Vital Signs Temp Pulse Resp BP Pulse Ox O2 Del Method FiO2 06/03/25 13:40 76 98 Room Air 06/03/25 13:30 95 94 Room Air 06/03/25 13:25 74 97 Room Air 06/03/25 12:00 71 06/03/25 08:30 74 06/03/25 08:00 68 06/03/25 08:00 Room Air 06/03/25 04:45 98.3 F 75 18 100/48 L 91 06/03/25 04:00 74 06/03/25 00:00 75 06/02/25 20:31 72 20 92 Room Air 21 06/02/25 20:28 73 20 06/02/25 20:00 76 06/02/25 20:00 Room Air 06/02/25 19:44 98.4 F 78 17 100/66 97 fffff Intake/Output Intake/Output: Intake & Output 05/31/25 06/01/25 06/02/25 06/03/25 23:59 23:59 23:59 23:59 Intake Total 860 1122 870 580 Output Total 2400 Balance -1540 1122 870 580 Meds/Results Medications: Active Medications Generic Name Dose Route Start Last Admin Trade Name Freq PRN Reason Stop Dose Admin Acetaminophen 650 mg 05/29/25 14:27 06/03/25 11:07 Acetaminophen 325 Mg Tablet PO 650 mg Q4H PRN Administration Mild Pain (1-3) or Fever Hydrocodone Bitart/Acetaminophen 1 tab 07/26/25 14:27 Hydrocodone/Acetaminophen (*Crx) 5-325 Mg Tablet PO Q4H PRN Moderate Pain (4-6) Amiodarone HCl 200 mg 05/31/25 09:00 06/03/25 08:30 Amiodarone Hcl 200 Mg Tablet PO 200 mg DAILY KERLINE Administration Bumetanide 1 mg 05/30/25 09:00 06/01/25 08:55 Bumetanide 1 Mg Tablet PO 1 mg BID KERLINE Administration Dextrose 12.5 gm 05/29/25 23:04 Dextrose 50% 25 Gm/50 Ml Syringe IV PUSH PRN PRN Hypoglycemia Protocol Docusate Sodium 100 mg 05/29/25 17:00 06/03/25 16:26 Docusate Sodium 100 Mg Capsule PO 100 mg BID KERLINE Administration Empagliflozin 10 mg 05/30/25 09:00 06/03/25 08:30 Empagliflozin 10 Mg Tablet PO 10 mg DAILY KERLINE Administration Fluoxetine HCl 40 mg 05/30/25 09:00 06/03/25 08:30 Fluoxetine Hcl 20 Mg Capsule PO 40 mg DAILY KERLINE Administration Gabapentin 600 mg 05/30/25 16:32 06/03/25 11:07 Gabapentin 300 Mg Capsule PO 600 mg TID PRN Administration RLS Glucagon 1 mg 05/29/25 23:04 Glucagon For Inj 1 Mg Vial IM PRN PRN Hypoglycemia Protocol Glucose 15 gm 05/29/25 23:04 Glucose Oral Gel 15 Gm Of Glucse In 37.5 Gm Tube PO PRN PRN Hypoglycemia Protocol Dextrose 1,000 mls @ 100 mls/hr 05/29/25 23:04 Dextrose 5% 1,000 Ml IVPB PRN PRN Hypoglycemia Protocol Insulin Aspart 2 - 5 units 05/30/25 08:00 06/03/25 16:25 Insulin Aspart (*Bkc) 100 Units/Ml SUB-Q Not Given TIDWM KERLINE Protocol Insulin Aspart 1 - 2 units 05/30/25 21:00 06/02/25 22:08 Insulin Aspart (*Bkc) 100 Units/Ml SUB-Q Not Given HS KERLINE Protocol Levothyroxine Sodium 125 mcg 05/30/25 06:30 06/03/25 05:43 Levothyroxine Sodium 125 Mcg Tablet BY MOUTH 125 mcg DAILY@0630 KERLINE Administration Metoprolol Tartrate 5 mg 05/31/25 15:52 Metoprolol Tartrate Inj 5 Mg/5 Ml Vial IV PUSH Q6H PRN Tachycardia Nitroglycerin 0.4 mg 05/29/25 14:27 Nitroglycerin Sl 0.4 Mg Tablet SUBLINGUAL Q5MIN PRN Chest Pain Ondansetron HCl 4 mg 05/29/25 14:08 06/01/25 22:43 Ondansetron Inj 4 Mg/2 Ml Vial IV PUSH 4 mg Q4H PRN Administration Nausea Pantoprazole Sodium 20 mg 06/02/25 09:00 06/03/25 08:30 Pantoprazole Sod Sesquihydrate 20 Mg Tab PO 20 mg QAM KERLINE Administration Potassium Chloride 40 meq 06/01/25 17:00 06/03/25 16:26 Potassium Chloride 20 Meq Er Tablet PO 40 meq BID KERLINE Administration Pramipexole Dihydrochloride 1 mg 05/30/25 16:32 06/03/25 11:08 Pramipexole 1 Mg Tablet PO 1 mg TID PRN Administration RLS Rivaroxaban 20 mg 05/29/25 21:50 06/03/25 16:26 Rivaroxaban 20 Mg Tablet PO 20 mg DAILY@1700 KERLINE Administration Rosuvastatin Calcium 10 mg 05/29/25 21:50 06/02/25 20:01 Rosuvastatin 10 Mg Tablet PO 10 mg HS KERLINE Administration Fluticasone/Salmeterol 2 puff 06/01/25 20:00 06/03/25 08:48 Fluticasone/Salmeterol 115-21 Mcg Inhaler 1 Puff INHALATION 2 puff Q12HRT KERLINE Administration Spironolactone 12.5 mg 05/30/25 15:00 06/01/25 08:56 Spironolactone 12.5 Mg Tablet PO 12.5 mg DAILY KERLINE Administration Radiology Results: ITS Impressions Chest X-Ray 05/29/25 11:52 IMPRESSION: Interstitial thickening, without focal infiltrate or effusion. Chest CTA 05/29/25 13:30 IMPRESSION: No pulmonary embolus. No thoracic aortic dissection. Redemonstration of mediastinal lymphadenopathy, increased in size from prior examination. Increase in prominence of the mosaic attenuation of the bilateral lung henderson, for which follow-up nonemergent high-resolution CT is recommended, for further characterization. Redemonstration of mediastinal lymphadenopathy. Interval enlargement of the subcarinal lymph node, detected on prior study. Labs Labs: Laboratory Tests 06/03/25 05:00 06/03/25 05:00 Calcium 8.9 Magnesium 2.2 Total Bilirubin 0.4 AST 31 ALT 13 Alkaline Phosphatase 85 Total Protein 6.6 Albumin 3.3 L Microbiology 05/29/25 12:35 Urine Clean Catch - Final Escherichia coli. 05/29/25 14:49 Blood Blood Culture - Preliminary 05/29/25 13:55 Blood Blood Culture - Preliminary
--- NOTE | 2025-06-03 14:43 | PCRCNOTE ---
HOME O2 EVAL COMPLETE, NO REQUIREMENTS
[2025-06-03] MEDS: RIVAROXABAN 20 MG TABLET PO (16:26)
[2025-06-04 01:07] LABS: Osmolality, Urine 506 mOsmol/kg (.)
[2025-06-05 07:09] LABS: Osmolality, Serum 282 mOsmol/kg (280-301)
[2025-06-08 19:08] LABS: Renin Activity, Plasma 4.776 ng/mL/hr (0.167-5.380)
== END 2025-06-03 17:15 | disposition home health service (06) | DRG 308 ==
LOC: ANHED 11:38 → ANHIMU 15:39 → ANH3MEDSUR 05-31 16:11
PROVIDERS: General Practice; Internal Medicine Critical Care Medicine; Internal Medicine Nephrology; Nurse Practitioner Acute Care; Nurse Practitioner Gerontology; Physician Assistant; Admitting Provider Internal Medicine; Emergency Provider Emergency Medicine; Visit Provider Nurse Practitioner Family
DX: I48.0 Paroxysmal atrial fibrillation (principal); J96.01 Acute respiratory failure with hypoxia; I50.32 Chronic diastolic (congestive) heart failure; N17.9 Acute kidney failure, unspecified; N39.0 Urinary tract infection, site not specified; Z68.41 Body mass index [BMI] 40.0-44.9, adult; J84.9 Interstitial pulmonary disease, unspecified; R07.81 Pleurodynia; I27.20 Pulmonary hypertension, unspecified; B96.20 Unspecified Escherichia coli [E. coli] as the cause of diseases classified elsewhere; G47.33 Obstructive sleep apnea (adult) (pediatric); E78.5 Hyperlipidemia, unspecified; G25.81 Restless legs syndrome; D50.9 Iron deficiency anemia, unspecified; K21.9 Gastro-esophageal reflux disease without esophagitis; E11.9 Type 2 diabetes mellitus without complications; I11.0 Hypertensive heart disease with heart failure; E03.9 Hypothyroidism, unspecified; R93.89 Abnormal findings on diagnostic imaging of other specified body structures; R59.0 Localized enlarged lymph nodes; E87.6 Hypokalemia; R13.10 Dysphagia, unspecified; Z96.611 Presence of right artificial shoulder joint; Z96.1 Presence of intraocular lens; Z20.822 Contact with and (suspected) exposure to COVID-19; E66.01 Morbid (severe) obesity due to excess calories; Z98.42 Cataract extraction status, left eye; Z98.41 Cataract extraction status, right eye
CPT/HCPCS: 36415; 71045; 71275; 80048; 80053; 80061; 81001; 81050; 82088; 82533; 82570; 82948; 83615; 83690; 83735; 83880; 83930; 83935; 84132; 84133; 84156; 84244; 84300; 84443; 84484; 84540; 85025; 85027; 85610; 85730; 86331; 86606; 86609; 86671; 87040; 87086; 87637; 92610; 93005; 94618; 94640; 96365; 96366; 96368; 96375; 97110; 97116; 97161; 97166; 97530; 97535; 99285; A9270; G0378; J0696; J1580; J2405; J2543; J3475; J3480; J7030; J7040; Q9967

== ENCOUNTER 2025-08-09 09:21 | Outpatient (CLI) | payer MEDICARE, OTHER, SELFPAY ==
--- NOTE | ~2025-08-09 | CT_ITS ---
EXAMINATION:CT chest high resolution wo wy DATE: 08/09/2025 09:41 INDICATION: Lymphadenopathy. TECHNIQUE: Computed tomography (CT) of the chest was performed without intravenous contrast. Automated exposure control and iterative reconstruction technique were employed. The dose-length product (DLP) was 249.51 mGy-cm. COMPARISON: Chest CT 05/29/2025 FINDINGS: There is diffuse septal thickening in the lungs with architectural distortion associated with mild groundglass opacities. No bronchiectasis. There is a small area of honeycombing in left upper lobe. A calcified left lung nodule and calcified left hilar and mediastinal lymph nodes are consistent with old granulomatous disease. Cardiomegaly is noted. There are coronary artery calcifications. No pericardial effusion. There is a left chest wall pacer with leads in the right atrium and right ventricle. The central pulmonary arteries are enlarged, consistent with pulmonary arterial hypertension. There are cysts in the kidneys measuring up to 2.2 cm on the left. There is a total right shoulder arthroplasty. There is thoracic kyphosis and severe spondylosis. There is severe cervical spondylosis. IMPRESSION: 1. Stable chronic interstitial lung disease in a pattern of usual interstitial pneumonia (UIP). Reviewed, dictated and finalized at location E.
--- OUTSIDE RECORDS SUMMARY | 2025-08-09 10:10 | XMS_ITS | Encounter Summary ---
Author Organization [facility] Address [address] [place] [address] Care Team Providers Care Cad Drafter Name Role Phone Akil Chan MD Primary Care Provider [phone] Tyler Brady MD Unavailable [phone] Vinod López DO Primary Care Provider [phone] Encounter Details Date Type Department Care Team (Late st Contact Info) Description 02/02/2019 [employer] Message Enc [facility] at [facility], [address] [place] [address] Tyler Brady MD [facility]. [address] [place] [address] Follow Up/Update Social History Tobacco [...] Sex Assigned at Female 11/05/2018 3:21 PM SOAKING TANK WORKER Legal Sex Female 6:14 PM CDT Gender Identity Female 11/05/2018 3:21 PM SOAKING TANK WORKER Sexual Orientation Not on file Occupation [...] had no further questions. Message to the litigation legal secretary. * Tyler Brady MD - [...] fibrillation documented in this encounter Care Teams Cad Drafter Relationship Specialty Start Date End Date Akil Chan MD PCP - General INTERNAL MEDICINE 09/01/18 03/15/19 Vinod López DO [address] [place] [address] [address] [place], [place] [id number] PCP - General INTERNAL MEDICINE 03/16/19 Tyler Brady MD [facility] [address] [place] [address] [place] Chief Risk Officer CARDIOVASCULAR DISEASE 09/01/18 documented as of this encounter
--- OUTSIDE RECORDS SUMMARY | 2025-08-09 10:10 | XMS_ITS | Encounter Summary ---
Author Organization [facility] Address [address] [place] [address] Care Team Providers Care [place] Coiling Machine Setter Name Role Phone Akil Chan MD Primary Care Provider [phone] Tyler Brady MD Unavailable [phone] Vinod López DO Primary Care Provider [phone] Encounter Details Date Type Department Care Team (Late st Contact Info) Description 09/17/2018 Hospital Orders Only [facility] at [facility], [address] [address] Roger Mcnamara MD [facility]. [address] [address] Social History Tobacco Use Types [...] Sex Assigned at Female 11/05/2018 3:21 PM TECHNICIAN SUBMARINE CABLE EQUIPMENT Legal Sex Female 6:14 PM CDT Gender Identity Female 11/05/2018 3:21 PM TECHNICIAN SUBMARINE CABLE EQUIPMENT Sexual Orientation Not on file documented as of this encounter Plan of Treatment Not on file documented as of this encounter Visit Diagnoses Not on filedocumented in this encounter Care Teams [place] Coiling Machine Setter Relationship Specialty Start Date End Date Akil Chan MD PCP - General INTERNAL MEDICINE 09/01/18 03/15/19 Vinod López DO [address] [place] [address] [address] [place] [address] PCP - General INTERNAL MEDICINE 03/16/19 Tyler Brady MD [facility] [address] [place] [address] [place] Hand Quilter CARDIOVASCULAR DISEASE 09/01/18 documented as of this encounter
--- OUTSIDE RECORDS SUMMARY | 2025-08-09 10:10 | XMS_ITS | Encounter Summary ---
Author Organization [facility] Address [address] [place] [address] Care Team Providers Care Transport Truck Driver Name Role Phone Thanh Alexandre MD, Flash Unavailable [phone] Roger Hutchins DO Primary Care Provider [phone] Encounter Details Date Type Department Care Team (Late st Contact Info) Description 07/02/2025 Results Follow-Up [facility] Cardiology [address] [facility] [address] [place] [address] Luzmaria Hernadez NP [address] [place], [place] [id number] Basic metabolic panel Social History Tobacco Use Types Packs/Day Years Used Date Smoking Tobacco: Never Smokeless Tobacco: Never Alcohol Use Standard Drinks/Week Comments Yes 0 (1 standard drink = 0.6 oz pure alcohol) Very rarely - wine holiday meal Comments Unknown Sex and Gender Information Value Date Recorded Sex Assigned at Not on file Legal Sex Female 3:20 AM FISH AND WILDLIFE SCIENTIFIC AID Gender Identity Female 11/18/2019 4:40 AM FISH AND WILDLIFE SCIENTIFIC AID Sexual Orientation Straight 11/18/2019 4: 40 AM FISH AND WILDLIFE SCIENTIFIC AID documented as of this encounter Plan of Treatment Not on file documented as of this encounter Visit Diagnoses Not on filedocumented in this encounter Care Teams Transport Truck Driver Relationship Specialty Start Date End Date Roger Hutchins DO [address] [place] [address] PCP - General Internal Medicine 06/08/25 Flash Law Jr., MD Medical Oncologist/Embedded Firmware Developer Medical Oncology 12/14/19 documented as of this encounter
--- OUTSIDE RECORDS SUMMARY | 2025-08-09 10:10 | XMS_ITS | Encounter Summary ---
Author Organization [facility] Address [address] [facility] [address] [place] [address] Care Team Providers Care Oil Change Technician Name Role Phone Akil Chan MD Primary Care Provider [phone] Vinod López DO Primary Care Provider [phone] Thanh Alexandre MD, Flash Unavailable [phone] Roger Hutchins DO Primary Care Provider [phone] Encounter Details Date Type Department Care Team (Late st Contact Info) Description 02/12/2017 Orders Only [facility] ProviderLisa MD [address] [place] [address] Social History Tobacco Use Types Packs/Day Years Used Date Smoking Tobacco: Never Alcohol Use Standard Drinks/Week Comments Yes 0 (1 standard drink = 0.6 oz pur e alcohol) Comments Unknown Sex and Gender Information Value Date Recorded Sex Assigned at Not on file Legal Sex Female 3:20 AM OCCUPATIONAL THERAPIST ASSISTANT Gender Identity Female 11/18/2019 4:40 AM OCCUPATIONAL THERAPIST ASSISTANT Sexual Orientation Straight 11/18/2019 4: 40 AM OCCUPATIONAL THERAPIST ASSISTANT documented as of this encounter Plan of [...] on filedocumented in this encounter Care Teams Oil Change Technician Relationship Specialty Start Date End Date Akil Chan MD PCP - General 02/05/17 11/10/19 Vinod López DO PCP - General Internal Medicine 11/11/19 06/07/25 Roger Hutchins DO [address] [place], [place] [address] PCP - General Internal Medicine 06/08/25 Flash Law Jr., MD Medical Oncologist/Box Folding Machine Operator Medical Oncology 12/14/19 documented as of this encounter
--- OUTSIDE RECORDS SUMMARY | 2025-08-09 10:10 | XMS_ITS | Encounter Summary ---
Author Organization [facility] Address [address] [place] [address] Care Team Providers Care Physician Scribe Name Role Phone Akil Chan MD Primary Care Provider [phone] Tyler Brady MD Unavailable [phone] Vinod López DO Primary Care Provider [phone] Encounter Details Date Type Department Care Team (Late st Contact Info) Description 10/22/2018 im3D Message Enc [facility] at [facility], [facility] [address] [place] [address] Tyler Brady MD [facility]. [facility] [address] [place] [address] Follow Up/Update Social History Tobacco [...] Sex Assigned at Female 11/05/2018 3:21 PM COMMUNITY LIAISON OFFICER Legal Sex Female 6:14 PM CDT Gender Identity Female 11/05/2018 3:21 PM COMMUNITY LIAISON OFFICER Sexual Orientation Not on file Occupation [...] the patient. Message sent to Dr. Brady. UNITY LIAISON OFFICER documented in this encounter Plan of Treatment Not on file documented as of this encounter Visit Diagnoses Not on filedocumented in this encounter Care Teams Physician Scribe Relationship Specialty Start Date End Date Akil Chan MD PCP - General INTERNAL MEDICINE 09/01/18 03/15/19 Vinod López DO [address] [facility] [address] [place], [place] [id number] PCP - General INTERNAL MEDICINE 03/16/19 Tyler Brady MD [facility]. [place] [address] [place] [address] [place] Senior Software Qa Engineer CARDIOVASCULAR DISEASE 09/01/18 documented as of this encounter
--- OUTSIDE RECORDS SUMMARY | 2025-08-09 10:10 | XMS_ITS | Encounter Summary ---
Author Organization [facility] Address [address] [place] [address] Care Team Providers Care Heavy Threader Name Role Phone Akil Chan MD Primary Care Provider [phone] Tyler Brady MD Unavailable [phone] Vinod López DO Primary Care Provider [phone] Encounter Details Date Type Department Care Team (Late st Contact Info) Description 02/16/2019 [employer] Message Enc [facility] at [facility], [facility] [address] [place] [address] Tyler Brady MD [facility]. [facility] [address] [place], [place] [id number] Follow Up/Update Social History Tobacco Use Types [...] Sex Assigned at Female 11/05/2018 3:21 PM HOUSING OFFICER Legal Sex Female 6:14 PM CDT Gender Identity Female 11/05/2018 3:21 PM HOUSING OFFICER Sexual Orientation Not on file Occupation Industry Job Start Date Job End Date Not on file Not on file Not on file Not on file documented as of this encounter Plan of Treatment Not on file documented as of this encounter Visit Diagnoses Not on filedocumented in this encounter Care Teams Heavy Threader Relationship Specialty Start Date End Date Akil Chan MD PCP - General INTERNAL MEDICINE 09/01/18 03/15/19 Vinod López DO [address] [facility] [address] [place] [address] PCP - General INTERNAL MEDICINE 03/16/19 Tyler Brady MD [facility] [address] [place] [address] [place] Professor Of Early Childhood Education CARDIOVASCULAR DISEASE 09/01/18 documented as of this encounter
--- OUTSIDE RECORDS SUMMARY | 2025-08-09 10:10 | XMS_ITS | Encounter Summary ---
Author Organization [facility] Address [address] [place] [address] Care Team Providers Care Calendar Control Clerk Blood Bank Name Role Phone Akil Chan MD Primary Care Provider [phone] Tyler Brady MD Unavailable [phone] Vinod López DO Primary Care Provider [phone] Reason for Visit * Reason Onset Date Comments Concerns 10/22/2018 Encounter Details Date Type Department Care Team (Late st Contact Info) Description 10/22/2018 [employer] Message [facility] at [facility], [facility] [address] [place] [address] Tyler Brady MD [facility] [address] [place] [address] Follow Up/Update Social History [...] Sex Assigned at Female 11/05/2018 3:21 PM DRAINAGE DESIGN COORDINATOR Legal Sex Female 6:14 PM CDT Gender Identity Female 11/05/2018 3:21 PM DRAINAGE DESIGN COORDINATOR Sexual Orientation Not on file Occupation [...] had no further questions. Message to the corporate legal secretary. NAGE DESIGN COORDINATOR * Tyler Brady MD - 10/22/2018 9:11 [...] when its convenient to her. Andrés Avalos NAGE DESIGN COORDINATOR * Jimena Chapman RN - 10/22/2018 8:54 [...] the patient. Message sent to Dr. Brady. NAGE DESIGN COORDINATOR documented in this encounter Plan of Treatment Not on file documented as of this encounter Visit Diagnoses Not on filedocumented in this encounter Care Teams Calendar Control Clerk Blood Bank Relationship Specialty Start Date End Date Akil Chan MD PCP - General INTERNAL MEDICINE 09/01/18 03/15/19 Vinod López DO 0 [facility] [address] [place], [place] [id number] PCP - General INTERNAL MEDICINE 03/16/19 Tyelr Brady MD [facility]. [facility] [address] [place] [address] [employer] Job Titles CARDIOVASCULAR DISEASE 09/01/18 documented as of this encounter
--- OUTSIDE RECORDS SUMMARY | 2025-08-09 10:10 | XMS_ITS | Encounter Summary ---
Author Organization [facility] Address [address] [place] [address] Care Team Providers Care Bumper Machine Operator Name Role Phone Akil Chan MD Primary Care Provider [phone] Tyler Brady MD Unavailable [phone] Vinod López DO Primary Care Provider [phone] Encounter Details Date Type Department Care Team (Late st Contact Info) Description 12/18/2018 [employer] Message Enc [facility] - [address], [address] [place] [id number] Kal Delcid MD [address] [place] [address] [address] [place] [address] Follow Up/Update Social History Tobacco [...] Sex Assigned at Female 11/05/2018 3:21 PM SALES TECHNICIAN Legal Sex Female 6:14 PM CDT Gender Identity Female 11/05/2018 3:21 PM SALES TECHNICIAN Sexual Orientation Not on file Occupation Industry Job Start Date Job End Date Not on file Not on file Not on file Not on file documented as of this encounter Plan of Treatment Not on file documented as of this encounter Visit Diagnoses Not on filedocumented in this encounter Care Teams Bumper Machine Operator Relationship Specialty Start Date End Date Akil Chan MD PCP - General INTERNAL MEDICINE 09/01/18 03/15/19 Vinod López DO [address] [address] PCP - General INTERNAL MEDICINE 03/16/19 Tyler Brady MD [facility] [address] [place] [address] [place] Surface Room Shop Optician CARDIOVASCULAR DISEASE 09/01/18 documented as of this encounter
--- OUTSIDE RECORDS SUMMARY | 2025-08-09 10:10 | XMS_ITS | Encounter Summary ---
Author Organization [facility] Address [address] [place] [address] Care Team Providers Care Printed Circuit Board Panels Developer Name Role Phone Akil Chan MD Primary Care Provider [phone] Tyler Brady MD Unavailable [phone] Vinod López DO Primary Care Provider [phone] Encounter Details Date Type Department Care Team (Late st Contact Info) Description 12/18/2018 [employer] Message Enc [facility] at [facility], [facility] [address] [place] [address] Tyler Brady MD [facility]. [facility] [address] [place], [place] [id number] Follow Up/Update Social History Tobacco Use Types [...] Sex Assigned at Female 11/05/2018 3:21 PM COUNTY AGRICULTURAL AGENT Legal Sex Female 6:14 PM CDT Gender Identity Female 11/05/2018 3:21 PM COUNTY AGRICULTURAL AGENT Sexual Orientation Not on file Occupation Industry Job Start Date Job End Date Not on file Not on file Not on file Not on file documented as of this encounter Progress Notes * Tyler Brady MD - 12/19/2018 6:10 PM CST Hi, I think Mrs. Osorio should see whichever assistant designer she is most comfortable seeing and can see the soonest. Thanks TY AGRICULTURAL AGENT * Jimena Chapman RN - 12/19/2018 2:15 PM CST The assistant designer referral has been in limbo since you [...] from the patient. Forwarded to Dr. Brady. TY AGRICULTURAL AGENT documented in this encounter Plan of Treatment Not on file documented as of this encounter Visit Diagnoses Not on filedocumented in this encounter Care Teams Printed Circuit Board Panels Developer Relationship Specialty Start Date End Date Akil Chan MD PCP - General INTERNAL MEDICINE 09/01/18 03/15/19 Vinod López DO [address] [place] [address] PCP - General INTERNAL MEDICINE 03/16/19 Tyler Brady MD [facility] [address] [place] [address] Eddie Restaurant Area Director CARDIOVASCULAR DISEASE 09/01/18 documented as of this encounter
--- OUTSIDE RECORDS SUMMARY | 2025-08-09 10:10 | XMS_ITS | Clinical Summary ---
Author Organization [facility] Address [address] [place] [address] Care Team Providers Care Pot Tender Name Role Phone Vinod López Primary Care Provider [phone] Source Comments [facility],non-owned Affiliates and Associated Physician Practices is amultiple site organization consisting of ambulatory clinics and hospital sitesin [place], [place], [place] and [place]. This disclosure is being madepursuant to the Care Everywhere program and may not contain all information available regarding this patient. Last updated 18.[facility] Allergies Active Allergy Reactions Criticality Noted Date [...] on file Legal Sex Female 8:43 PM METER READER CHIEF Gender Identity Not on file Sexual Orientation Not on file Last Filed Vital Signs Vital Sign Reading Time Taken Comments Blood Pressure 136/82 11/07/2020 10:57 AM METER READER CHIEF Pulse 70 11/07/2020 10:57 AM METER READER CHIEF Temperature - - Respiratory Rate 12 11/07/2020 10:5 7 AM METER READER CHIEF Oxygen Saturation - - Inhaled Oxygen Concentration - - Weight 124.4 kg (274 lb 3.2 oz) 021 10:57 AM METER READER CHIEF Height 160 cm (5' 3) 11/07/2020 10:57 AM METER READER CHIEF Body Mass Index 48.57 11/07/2020 10:57 AM METER READER CHIEF Plan of Treatment Health Maintenance Due Date Last Done Comments BONE DENSITY TESTING 1945 MEDICARE AWV 12 MONTHS 1945 DTAP/TDAP/TD VACCINES (1 - Tdap) 1964 PNEUMOCOCCAL VACCINE 50+ (1 of 1 - PCV) 1995 ZOSTER VACCINE (1 of 2) 1995 Respiratory Syncytial Virus (RSV) Vaccine Pt: or over 60 yrs (1 - 1-dose 75+ series) 2020 DEPRESSION SCREENING 11/04/2024 COVID-19 VACCINE (4 - 2025-26 season) 2025 08/27/2021, 02/22/2021, 01/25/2021 INFLUENZA VACCINE (#1) 2025 2, 09/20/2021, 08/27/2020, [...] age to complete this topic Insurance MEDICARE [facility] MEDICARE SELF PAY NO INSURANCE Member Subscriber Plan / Payer (Ef fective for All Dates) Name:Alessandra Sam Member ID:Not on file Relation to Subscriber:Not on file Name:ALESSANDRA SAM Subscriber ID:Not on file (Home) Address: [address] [place] [id number] Payer ID:Not on file Group ID:Not on file Type:Self Pay Address: [place], [place] Care Teams Pot Tender Relationship Specialty Start Date End Date Vinod López DO [address] [place], [place] [id number] PCP - General Internal Medicine 04/03/19
--- OUTSIDE RECORDS SUMMARY | 2025-08-09 10:10 | XMS_ITS | Clinical Summary ---
Author Organization [facility] Address [address] [place] [address] Care Team Providers Care General Labor Name Role Phone Thanh Alexandre MD, Flash Unavailable [phone] Roger Hutchins DO Primary Care Provider [phone] Allergies Active Allergy Reactions Criticality Noted Date Comments Nitrofurantoin Redness,Swelling,Ur ticaria Medium 05/25/2025 Simvastatin Other (See comments) Low 11/18/2010 Sulfa (Sulfonamide Antibiotics) Rash Medium 05/25/2025 Reaction: Rash, , Medications metFORMIN (GLUCOPHAGE) 500 mg tablet take 1 tablet by oral route 2 times every day with morning and evening meals 0 0 5 Active rosuvastatin (CRESTOR) 10 mg tablet take 1 tablet by oral route every day 0 0 5 Active rivaroxaban (XARELTO) 20 mg tablet Take 1 tablet (20 mg total) by mouth daily. 90 tablet 3 8 Active metOLazone (ZAROXOLYN) 2.5 mg tablet as needed Active ALPRAZolam (XANAX) 0.25 mg tablet Take 1 tablet (0.25 mg total) by mouth 2 (two) times a day as needed 5 Active levothyroxine (SYNTHROID) 125 mcg tablet Take 1 tablet (125 mcg total) by mouth daily 5 Active FLUoxetine (PROzac) 40 mg capsule Take 1 capsule (40 mg total) by mouth daily Active bumetanide (BUMEX) 1 mg tablet Take 1 tablet (1 mg total) by mouth daily Take in evening Active empagliflozin (JARDIANCE) 10 mg tablet 1 tablet (10 mg total) Active acetaminophen ER (TYLENOL) 650 mg 8 hr tablet Take 2 tablets (1,300 mg total) by mouth 2 Active amiodarone (Pacerone) 200 mg tablet Take 1 tablet (200 mg total) by mouth 5 Active gabapentin (NEURONTIN) 600 mg tablet 3 (three) times a day 5 Active pramipexole (MIRAPEX) 1 mg tablet Take 1 tablet (1 mg total) by mouth 3 (three) times a day Active omeprazole (PriLOSEC) 20 mg capsule Take 1 capsule (20 mg total) by mouth daily Active potassium chloride ER 20 mEq CR tablet Take 1 tablet (20 mEq total) by mouth 2 (two) times a day Active vit C/E/Zn/coppr/judson tein/zeaxan (EYE HEALTH VITAMIN-MINERAL ORAL) Take by mouth Active ferrous sulfate 325 mg (65 mg of elemental iron) tabletIndicatio ns:Iron Deficiency Anemia Take 1 tablet (325 mg total) by mouth daily with breakfast Active budesonide-form oteroL (SYMBICORT) 160-4.5 mcg/actuation inhaler Inhale 2 puffs 2 (two) times a day 5 Active spironolactone (ALDACTONE) 25 mg tablet Take 1 tablet (25 mg total) by mouth daily 90 tablet 3 5 Active ferrous sulfate 325 mg (65 mg of elemental iron) tabletIndicatio ns:Iron Deficiency Anemia Take 1 tablet (325 mg total) by mouth 2 (two) times a day. 8 07/20/20 25 Discontinu ed(Patient Reported) amiodarone (PACERONE) 100 mg tablet 5 07/20/20 25 Discontinu ed(Patient Reported) potassium chloride ER (KLOR-CON) 20 mEq CR tablet Take 2 tablets (40 mEq total) by mouth 2 (two) times a day 5 07/20/20 25 Discontinu ed(Patient Reported) spironolactone (ALDACTONE) 25 mg tablet Take 1 tablet (25 mg total) by mouth daily 30 tablet 3 07/29/20 Discontinu ed(Reorder ) Active Problems Problem Noted Date Diagnosed Date Cardiac pacemaker in situ 06/09/2025 Overview (06/09/2025): Butts Asssean Dual Pacemaker. Dx; SSS, Afib. DOI 03/17/2019[facility] 06/09/25. 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 Encounters Date Type Department Care Team Description 08/06/2025 Results Follow-Up [facility] Cardiology [address] [place] [address] [place] [phone] Luzmaria Hernadez NP Comprehensive metabolic panel, Thyroid Function Morris, T4, free 07/27/2025 11:00 AM CDT Ancillary Procedure [facility] Cardiology [address] [place] [address] [place] [phone] Arrived 07/20/2025 9:30 AM CDT Office Visit [facility] Cardiology [address] [place] [address] [place] [phone] Luzmaria Hernadez NP Persistent atrial fibrillation (HCC); On amiodarone therapy; Chronic diastolic congestive heart failure (HCC); Pulmonary hypertension (HCC); Nonrheumatic tricuspid valve regurgitation; History of cardiac pacemaker 07/15/2025 Telephone [facility] Cardiology [address] [place] [address] [place] [phone] Luzmaria Hernadez NP BP readings; Rapid Heart Rate 07/02/2025 Results Follow-Up [facility] Cardiology [address] [place] [address] [place] [phone] Luzmaria Hernadez NP Basic metabolic panel 07/02/2025 Orders Only [facility] Cardiology [address] [address] [place] [phone] Ciara Arroyo NP 06/17/2025 Orders Only [facility] [address] [place] [phone] Brenda Garcia NP Persistent atrial fibrillation (HCC) (Primary Dx) 06/09/2025 Orders Only [facility] Cardiology [address], [place] [address] Tyler Mancilla MD Cardiac pacemaker in situ (Primary Dx); Persistent atrial fibrillation (HCC); SSS (sick sinus syndrome) (HCC) 06/08/2025 10:00 AM CDT Office Visit [facility] Cardiology [address] [place] [address] [place] [phone] Luzmaria Hernadez NP Persistent atrial fibrillation (HCC); Chronic diastolic congestive heart failure (HCC); Chest pain, unspecified type; Pulmonary hypertension (HCC); Nonrheumatic tricuspid valve regurgitation; History of cardiac pacemaker; Hospital discharge follow-up 06/04/2025 Orders Only [facility] Cardiology [address] [place] [address] [place] [phone] Virgen Caldwell MD 06/03/2025 Orders Only [facility] Cardiology [address] [place] [address] [place] [phone] Virgen Caldwell MD 05/31/2025 Orders Only [facility] Cardiology [address] [place] [address] [place] [phone] Steven Reynolds MD 05/29/2025 Orders Only [facility] Health Information Management [address] [place] [address] Scanning, Provider 05/27/2025 Results Follow-Up [facility] Care at [address] [phone] Vijaya Buchanan NP Urine culture Urine, bladder 05/25/2025 8:05 PM CDT - 05/25/2025 11:59 PM CDT Hospital Encounter [facility] [address] [place] [address] Acute cystitis with hematuria Discharge Disposition: Discharge to home or self care 05/25/2025 4:15 PM CDT Office Visit [facility] at [address] [phone] Eloina Sullivan PA Acute cystitis with hematuria (Primary Dx) 05/13/2025 Orders Only [facility] Cardiology [address] [place] [address] Tre Herrera MD from Last 3 Months Immunizations Immunization Administration Dates Next Due Influenza, Trivalent, High D ose, Split, Preservative Free, Intramuscular 08/25/2019,08/18/2017,09/04/2016,08/28 Pneumococcal, Unspecified 08/01/2005 Surgical History Surgery Date Site/Laterality Comments KNEE ARTHROSCOPY Arthroscopy knee OTHER SURGICAL HISTORY Humerus: ORIF TONSILLECTOMY Tonsillectomy HERNIA REPAIR Hernia repair FRACTURE SURGERY 08/13/2013 JOINT REPLACEMENT 07/08/2018 TUBAL LIGATION 11/04/1978 - 11/03/1979 CATARACT EXTRACTION Medical History Medical History Date Comments Hx [...] reflux disease) Anxiety Arthritis Cataract Diabetes mellitus Heart disease 07/15/2018 Neuromuscular disorder Family History Medical History Relation Name Comments [...] 2 Bell Humphrey Cancer Sister 3 Corinne Kwont Anemia Son Bill Osorio Relation Name Status Comments Brother Robin Daughter 1 Mariangel Osorio Daughter 2 Jimena Osorio Father Wilbert Lopez (Age 71) Mother Katharina Lopez (Age 63) Mother's Sister Nikole Rodriguez Other 1 Other 2 Other 3 Other 4 Other 5 Sister 1 Keshia Hamlin Sister 2 Bell Humphrey Sister 3 Corinne Jamison Son Bill Osorio Social History Tobacco Use Types Packs/Day Years Used Date Smoking Tobacco: Never Smokeless Tobacco: Never Tobacco Cessation:Counseling Given: Not Answered Alcohol Use Standard Drinks/Week Comments Yes 0 (1 standard drink = 0.6 oz pure alcohol) Very rarely - wine holiday meal Comments Unknown Sex and Gender Information Value Date Recorded Sex Assigned at Not on file Legal Sex Female 3:20 AM MOLD FILLER PLASTIC DOLLS Gender Identity Female 11/18/2019 4:40 AM MOLD FILLER PLASTIC DOLLS Sexual Orientation Straight 11/18/2019 4: 40 AM MOLD FILLER PLASTIC DOLLS Obstetrics History Last Filed Vital Signs Vital Sign Reading Time Taken Comments Blood Pressure 102/60 07/20/2025 10:04 AM CDT Pulse 74 07/20/2025 10:04 AM CDT Temperature 36.5 C (97.7 F) 05/25/2025 4:19 PM CDT Respiratory Rate 20 05/25/2025 4:19 PM CDT Oxygen Saturation 92% 07/20/2025 10:04 AM CDT Inhaled Oxygen Concentration - - Weight 95.4 kg (210 lb 6.4 oz) 07/20/2025 10:04 AM CDT Height 160 cm (5' 3) 07/20/2025 10:04 AM CDT Body Mass Index 37.27 07/20/2025 10:04 AM CDT Plan of Treatment Health Maintenance Due Date Last Done Comments Albumin Creatinine Ratio, Urine 1945 Depression Screening 1945 Fall Risk Assessment 1945 Hemoglobin A1C 1945 Hepatitis C Screening 1945 Osteoporosis Screening-Bone Density Scan 1945 Dilated Eye Exam 1945 Foot Exam 1945 Lipid Panel 1945 DTaP/Tdap/Td Vaccine (1 - Tdap) 1956 Pneumococcal vaccine 65+ (1 of 2 - PCV) 1964 08/01/2005 Well Visit 65+ 2010 Zoster Vaccine (2 of 3) 09/01/2014 07/07/2014, 08/07 Influenza Vaccine (#1) 2025 , 09/02/2020, 08/27/2020, Additional history exists eGFR 08/03/2026 08/03/2025, 07/01/2025 Hepatitis B Screening Completed 08/09/2004 Procedures Procedure Name Priority Date/Time Associated Diagnosis Comments T4, FREE Routine 08/03/2025 7:58 AM CDT THYROID FUNCTION CASCADE Routine 08/03/2025 7:58 AM CDT On amiodarone therapy COMPREHENSIVE METABOLIC PANEL Routine 08/03/2025 7:58 AM CDT On amiodarone therapy BASIC METABOLIC PANEL Routine 07/01/2025 7:37 AM CDT Chronic diastolic congestive heart failure (HCC) Hypokalemia CARDIOLOGY DOCUMENT SCAN Routine 06/03/2025 2:09 PM CDT SCAN - LABS 06/03/2025 CARDIOLOGY DOCUMENT SCAN Routine 06/02/2025 3:32 PM CDT CARDIOLOGY DOCUMENT SCAN Routine 06/02/2025 3:29 PM CDT CARDIOLOGY DOCUMENT SCAN Routine 06/01/2025 11:15 AM CDT CARDIOLOGY DOCUMENT SCAN Routine 05/30/2025 4:11 PM CDT SCAN - RADIOLOGY/IMAGING 05/29/2025 POCT URINALYSIS DIPSTICK Routine 05/25/2025 4:25 PM CDT Acute cystitis with hematuria URINE CULTURE Routine 05/25/2025 3:00 PM CDT Acute cystitis with hematuria from Last 3 Months Results * (ABNORMAL) Thyroid Function Morris (08/03/2025 7:58 AM CDT) Pathologist [facility] TSH 0.13(L) 0.40 - 4.50 mIU/L [facility] Blood 08/03/2025 7:58 AM CDT 08/03/2025 7:58 AM CDT Luzmaria Hernadez COCOA PRESS OPERATOR LAB BLOOD ORDERABLES Sagrario l Result Performing Organization Address [facility] Co de Phone Number QUEST [facility] [address] [place] [address] * (ABNORMAL) T4, free (08/03/2025 7:58 AM CDT) Pathologist [facility] Free T4 2.1(H) 0.8 - 1.8 ng/dL [facility] 08/03/2025 7:58 AM CDT 08/03/2025 7:58 AM CDT Luzmaria Hernadez COCOA PRESS OPERATOR LAB BLOOD ORDERABLES Sagrario l Result Performing Organization Address [facility] de Phone Number [facility]ST [facility] [address] [place] [address] * (ABNORMAL) Comprehensive metabolic panel (08/03/2025 7:58 AM CDT) Pathologist [facility] Glucose 87 65 - 99 mg/dL [facility] Comment: Fasting reference interval BUN 15 7 - 25 mg/dL [facility] Creatinine 1.07(H) 0.60 - 1.00 mg/dL [facility] eGFR 53(L) > OR = 60 mL/min/1.7 3m2 [facility] BUN/creat ratio 14 6 - 22 (calc) [facility] Sodium 138 135 - 146 mmol/L [facility] Potassium, pl 4.2 3.5 - 5.3 mmol/L [facility] Chloride 101 98 - 110 mmol/L [facility] CO2 28 20 - 32 mmol/L [facility] Calcium 9.4 8.6 - 10.4 mg/dL [facility] Protein, sr 6.9 6.1 - 8.1 g/dL [facility] Albumin 3.9 3.6 - 5.1 g/dL [facility] GLOBULIN 3.0 1.9 - 3.7 g/dL (calc) [facility] Alb/glob ratio 1.3 1.0 - 2.5 (calc) [facility] Bilirubin, total 0.3 0.2 - 1.2 mg/dL [facility] Alk phos 67 37 - 153 U/L [facility] AST 16 10 - 35 U/L [facility] ALT (SGPT) 10 6 - 29 U/L [facility] Blood 08/03/2025 7:58 AM CDT 08/03/2025 7:58 AM CDT us Luzmaria Hernadez COCOA PRESS OPERATOR LAB BLOOD ORDERABLES Sagrario l Result [facility] [address] [place] [address] * (ABNORMAL) Basic metabolic panel (07/01/2025 7:37 AM CDT) Pathologist [facility] Glucose 92 65 - 99 mg/dL [facility] Comment: Fasting reference interval BUN 18 7 - 25 mg/dL [facility] Creatinine 1.10(H) 0.60 - 1.00 mg/dL [facility] eGFR 51(L) > OR = 60 mL/min/1.7 3m2 [facility] BUN/creat ratio 16 6 - 22 (calc) [facility] Sodium 138 135 - 146 mmol/L [facility] Potassium, pl 4.5 3.5 - 5.3 mmol/L [facility] Chloride 99 98 - 110 mmol/L [facility] CO2 30 20 - 32 mmol/L [facility] Calcium 9.0 8.6 - 10.4 mg/dL [facility] Blood 07/01/2025 7:37 AM CDT 07/01/2025 7:37 AM CDT Narrative [facility] - 07/02/2025 3:30 AM CDT FASTING:YES FASTING: YES Luzmaria Hernadez NP LAB BLOOD ORDERABLES Sagrario l Result [facility] [address] [facility] [place] [address] * Cardiology Document Scan (06/03/2025 2:09 PM CDT) Anatomical Region Laterality Modality Other Virgen Caldwell MD [facility] C[facility]IAC SERVICES PROCEDU RES Final Result * SCAN - LABS (06/03/2025) Provider Scanning Final Result * Cardiology Document Scan (06/02/2025 3:32 PM CDT) Anatomical Region Laterality Modality Other Virgen Caldwell MD CV CARDIAC SERVICES PROCEDU RES Final Result * Cardiology Document Scan (06/02/2025 3:29 PM CDT) Anatomical Region Laterality Modality Other Virgen Caldwell MD CV CARDIAC SERVICES PROCEDU RES Final Result * Cardiology Document Scan (06/01/2025 11:15 AM CDT) Anatomical Region Laterality Modality Other Ciara Arroyo NP CV CARDIAC SERVICES PROCEDUR ES Final Result * Cardiology Document Scan (05/30/2025 4:11 PM CDT) Anatomical Region Laterality Modality Other Steven Reynolds MD CV CARDIAC SERVICES PROCEDURES F inal Result * SCAN - RADIOLOGY/IMAGING (05/29/2025) Anatomical Region Laterality Modality Other Provider Scanning Edited Result - Final * (ABNORMAL) POCT urinalysis dipstick (05/25/2025 4:25 PM CDT) Color, Urine, POC Colorless Clarity, ur, POC Cloudy(A) Clear Glucose, ur, POC 500.(A) Negative Bilirubin, ur, POC Negative Negative Ketones, ur, POC Negative Negative Specific [place], POC 1.015 1.003 - 1.030 Blood, ur, [...] current clinical standards) Comment:Testing performed by : [facility], [address] [place] [address] Organism (CLINICALLY INSIGNIFICANT GROWTH MIGUEL LINARES Urine, bladder 05/25/2025 3: 00 PM CDT 05/25/2025 9:53 PM CDT Narrative MIGUEL LINARES - 05/27/2025 3:27 AM CDT Testing performed by [facility] Microbiology Laboratory ([phone]) Eloina PEREZ LAB MICROBIOLOGY - GENER AL ORDERABLES Final Result MIGUEL LINARES [id number] Department [place] [address] from Last 3 Months Insurance MEDICARE FOR LIFE MEDICARE FOR LIFE MEDICARE FOR LIFE Care Teams General Labor Relationship Specialty Start Date End Date Roger Hutchins DO [address] [place] [address] PCP - General Internal Medicine 06/08/25 Flash Law Jr., MD Medical Oncologist/Accounting Specialist Medical Oncology 12/14/19
--- OUTSIDE RECORDS SUMMARY | 2025-08-09 10:10 | XMS_ITS | Encounter Summary ---
Author Organization [facility] Address [address] [place] [address] Care Team Providers Care Teacher Education Instructor Name Role Phone Akil Chan MD Primary Care Provider [phone] Tyler Brady MD Unavailable [phone] Vinod López DO Primary Care Provider [phone] Encounter Details Date Type Department Care Team (Late st Contact Info) Description 12/01/2018 [facility] Message Enc [facility] at [facility], [facility] [address] [place] [address] Tyler Brady MD [facility]. [facility] [address] [place], [place] [id number] Test Results Social History Tobacco Use Types [...] Sex Assigned at Female 11/05/2018 3:21 PM MOWER SHARPENER Legal Sex Female 6:14 PM CDT Gender Identity Female 11/05/2018 3:21 PM MOWER SHARPENER Sexual Orientation Not on file Occupation Industry Job Start Date Job End Date Not on file Not on file Not on file Not on file documented as of this encounter Progress Notes * Jimena Chapman RN - 12/01/2018 10:49 AM CST See patient record request - thank you. R SHARPENER documented in this encounter Plan of Treatment Not on file documented as of this encounter Visit Diagnoses Not on filedocumented in this encounter Care Teams Teacher Education Instructor Relationship Specialty Start Date End Date Akil Chan MD PCP - General INTERNAL MEDICINE 09/01/18 03/15/19 Vinod López DO [address] [place], [place] [address] [id number] PCP - General INTERNAL MEDICINE 03/16/19 Tyler Brady MD [facility] [address] [place] [address] [place] [facility] CARDIOVASCULAR DISEASE 09/01/18 documented as of this encounter
--- OUTSIDE RECORDS SUMMARY | 2025-08-09 10:10 | XMS_ITS | Encounter Summary ---
Author Organization [facility] Address [address] [place] [address] Care Team Providers Care Printed Circuit Board Assembler Name Role Phone Akil Chan MD Primary Care Provider [phone] Tyler Brady MD Unavailable [phone] Vinod López DO Primary Care Provider [phone] Encounter Details Date Type Department Care Team (Late st Contact Info) Description 02/16/2019 [employer] Message Enc [facility] at [facility], [facility] [address] [place] [address] Tyler Brady MD [facility]. [facility] [address] [place], [place] [phone] Question Social History Tobacco Use Types Packs/Day [...] Sex Assigned at Female 11/05/2018 3:21 PM CIVIL SERVICE CLERK Legal Sex Female 6:14 PM CDT Gender Identity Female 11/05/2018 3:21 PM CIVIL SERVICE CLERK Sexual Orientation Not on file Occupation Industry Job Start Date Job End Date Not on file Not on file Not on file Not on file documented as of this encounter Plan of Treatment Not on file documented as of this encounter Visit Diagnoses Not on filedocumented in this encounter Care Teams Printed Circuit Board Assembler Relationship Specialty Start Date End Date Akil Chan MD PCP - General INTERNAL MEDICINE 09/01/18 03/15/19 Vinod López DO [address] [facility] [address] [place] [address] PCP - General INTERNAL MEDICINE 03/16/19 Tyler Brady MD [facility] [address] [place] [address] [employer] Hand CARDIOVASCULAR DISEASE 09/01/18 documented as of this encounter
--- OUTSIDE RECORDS SUMMARY | 2025-08-09 10:10 | XMS_ITS | Encounter Summary ---
Author Organization [facility] Address [address] [place] [address] Care Team Providers Care Furniture Inspector Name Role Phone Akil Chan MD Primary Care Provider [phone] Tyler Brady MD Unavailable [phone] Vinod López DO Primary Care Provider [phone] Encounter Details Date Type Department Care Team (Late st Contact Info) Description 11/03/2018 Hapzing Message Enc [facility] at [facility], [facility] [address] [place] [address] Tyler Brady MD [facility] [address] [place] [address] Follow Up/Update Social History Tobacco [...] Sex Assigned at Female 11/05/2018 3:21 PM BAD CREDIT COLLECTOR Legal Sex Female 6:14 PM CDT Gender Identity Female 11/05/2018 3:21 PM BAD CREDIT COLLECTOR Sexual Orientation Not on file Occupation Industry Job Start Date Job End Date Not on file Not on file Not on file Not on file documented as of this encounter Plan of Treatment Not on file documented as of this encounter Visit Diagnoses Not on filedocumented in this encounter Care Teams Furniture Inspector Relationship Specialty Start Date End Date Akil Chan MD PCP - General INTERNAL MEDICINE 09/01/18 03/15/19 Vinod López DO [facility] [address] [place] [address] PCP - General INTERNAL MEDICINE 03/16/19 Tyler Brady MD [facility] [address] [place] [address] [place] Division Commander CARDIOVASCULAR DISEASE 09/01/18 documented as of this encounter
--- OUTSIDE RECORDS SUMMARY | 2025-08-09 10:10 | XMS_ITS | Encounter Summary ---
Author Organization [facility] Address [address] [place] [address] Care Team Providers Care Customer Facilities Supervisor Name Role Phone Akil Chan MD Primary Care Provider [phone] Tyler Brady MD Unavailable [phone] Vinod Lóepz DO Primary Care Provider [phone] Encounter Details Date Type Department Care Team (Late st Contact Info) Description 10/13/2018 Times pace Intelligent Technology Message [facility] at [facility], [facility] [address] [place] [address] Tyler Brady MD [facility] [address] [place], [place] [id number] Medication Questions Social History Tobacco Use Types [...] Sex Assigned at Female 11/05/2018 3:21 PM ALGEBRA TEACHER Legal Sex Female 6:14 PM CDT Gender Identity Female 11/05/2018 3:21 PM ALGEBRA TEACHER Sexual Orientation Not on file Occupation Industry Job Start Date Job End Date Not on file Not on file Not on file Not on file documented as of this encounter Plan of Treatment Not on file documented as of this encounter Visit Diagnoses Not on filedocumented in this encounter Care Teams Customer Facilities Supervisor Relationship Specialty Start Date End Date Akil Chan MD PCP - General INTERNAL MEDICINE 09/01/18 03/15/19 Vinod López DO 20[address] [employer] [facility] [address] [place] [address] PCP - General INTERNAL MEDICINE 03/16/19 Tyler Brady MD [facility] [address] [place] [address] [place] Curbing Stonecutter CARDIOVASCULAR DISEASE 09/01/18 documented as of this encounter
--- OUTSIDE RECORDS SUMMARY | 2025-08-09 10:10 | XMS_ITS | Encounter Summary ---
Author Organization [facility] Address [address] [place] [address] Care Team Providers Care It Software Engineer Name Role Phone Akil Chan MD Primary Care Provider [phone] Tyler Brady MD Unavailable [phone] Vinod López DO Primary Care Provider [phone] Encounter Details Date Type Department Care Team (Late st Contact Info) Description 09/10/2018 GeoTrac Message Enc [facility] at [facility], [facility] [address] [place] [address] Tyler Brady MD [facility]. [facility] [address] [place], [place] [id number] Medication Questions Social History Tobacco Use Types [...] Sex Assigned at Female 11/05/2018 3:21 PM WIND TUNNEL TECHNICIAN Legal Sex Female 6:14 PM CDT Gender Identity Female 11/05/2018 3:21 PM WIND TUNNEL TECHNICIAN Sexual Orientation Not on file documented as of this encounter Plan of Treatment Not on file documented as of this encounter Visit Diagnoses Not on filedocumented in this encounter Care Teams It Software Engineer Relationship Specialty Start Date End Date Akil Chan MD PCP - General INTERNAL MEDICINE 09/01/18 03/15/19 Vinod López DO [address] [place] [address] [address] [place], [place] [id number] PCP - General INTERNAL MEDICINE 03/16/19 Tyler Brady MD [facility] [address] [place] [address] [place] Spot Welder CARDIOVASCULAR DISEASE 09/01/18 documented as of this encounter
--- OUTSIDE RECORDS SUMMARY | 2025-08-09 10:10 | XMS_ITS | Encounter Summary ---
Author Organization [facility] Address [address] [place] [address] Care Team Providers Care Graphic Design Manager Name Role Phone Akil Chan MD Primary Care Provider [phone] Tyler Brady MD Unavailable [phone] Vinod López DO Primary Care Provider [phone] Encounter Details Date Type Department Care Team (Late st Contact Info) Description 09/05/2018 GetSocial Message Enc [facility] at [facility], [facility] [address] [place] [address] Tyler Brady MD [facility]. [facility] [address] [place], [place] [id number] Medication Questions Social History Tobacco Use Types [...] Sex Assigned at Female 11/05/2018 3:21 PM ESL TUTOR Legal Sex Female 6:14 PM CDT Gender Identity Female 11/05/2018 3:21 PM ESL TUTOR Sexual Orientation Not on file documented as of this encounter Plan of Treatment Not on file documented as of this encounter Visit Diagnoses Not on filedocumented in this encounter Care Teams Graphic Design Manager Relationship Specialty Start Date End Date Akil Chan MD PCP - General INTERNAL MEDICINE 09/01/18 03/15/19 Vinod López DO [address] [place] [address] 204 [place], [place] [id number] PCP - General INTERNAL MEDICINE 03/16/[address] [facility] [address] [place] [address] [place] Senior Account Executive CARDIOVASCULAR DISEASE 09/01/18 documented as of this encounter
--- OUTSIDE RECORDS SUMMARY | 2025-08-09 10:10 | XMS_ITS | Encounter Summary ---
Author Organization [facility] Address [address] [place] [address] Care Team Providers Care Color Room Attendant Name Role Phone Akil Chan MD Primary Care Provider [phone] Tyler Brady MD Unavailable [phone] Vinod López DO Primary Care Provider [phone] Encounter Details Date Type Department Care Team (Late st Contact Info) Description 03/10/2019 Liquidmetal Technologies Message Enc [facility] at [facility], [facility] [address] [place] [address] Tyler Brady MD [facility]. [facility] [address] [place], [place] [phone] Medication Questions Social History Tobacco Use Types [...] Sex Assigned at Female 11/05/2018 3:21 PM FRINGE MAKER Legal Sex Female 6:14 PM CDT Gender Identity Female 11/05/2018 3:21 PM FRINGE MAKER Sexual Orientation Not on file Occupation Industry Job Start Date Job End Date Not on file Not on file Not on file Not on file documented as of this encounter Plan of Treatment Not on file documented as of this encounter Visit Diagnoses Not on filedocumented in this encounter Care Teams Color Room Attendant Relationship Specialty Start Date End Date Akil Chan MD PCP - General INTERNAL MEDICINE 09/01/18 03/15/19 Vinod López DO 2090 [employer] [facility] [address] [place] [address] PCP - General INTERNAL MEDICINE 03/16/19 Tyler Brady MD [facility] [address] [place] [address] [place] Administrative Assistant Coordinator CARDIOVASCULAR DISEASE 09/01/18 documented as of this encounter
--- OUTSIDE RECORDS SUMMARY | 2025-08-09 10:10 | XMS_ITS | Clinical Summary ---
Author Organization [facility] Address [address] [place] [address] Care Team Providers Care Rotary Drill Operator Name Role Phone Tyler Brady MD Unavailable [phone] Vinod López DO Primary Care Provider [phone] Allergies Active Allergy Reactions Criticality Noted Date [...] 2 (two) times a day. 8 Active [place] 3 1000 MG Cap Take 1 tablet [...] sotalol therapy 019 PAF (paroxysmal atrial fibrillation) ([facility]) 11/05/2018 Mitral regurgitation 09/02/2018 Diabetes ([facility]) 09/02/2018 Class 3 severe obesity due t o excess calories without serious comorbidity with body mass index (BMI) of 45.0 to 49.9 in adult 09/02/2018 GERD (gastroesophageal reflux disease) 8 A-fib ([facility]) Essential hypertension Family History Medical History Relation Comments [place] Father Relation Status Comments Father (Age 71) [...] Sex Assigned at Female 11/05/2018 3:21 PM INSTRUMENT AND CONTROL SERVICE PERSON Legal Sex Female 6:14 PM CDT Gender Identity Female 11/05/2018 3:21 PM INSTRUMENT AND CONTROL SERVICE PERSON Sexual Orientation Not on file Occupation Industry [...] C 1963 DTaP, Tdap and Td Vaccines (1 - Tdap) 1964 Pneumococcal Vaccine: 50+ Years (1 of 2 - PCV) 1964 Zoster Vaccines (1 of 2) 1995 Annual Medicare Wellness Visit 2010 Dexa Scan (General) 2010 RSV Immunization or 60+ Years (1 - 1-dose 75+ series) 2020 COVID-19 Vaccine (1 - season) 2025 Influenza Adult (#1) 2025 08/25/2019, 07/15/2018, 08/18/2017, Additional history exists Colorectal Cancer Screening FIT/FOBT (1 Year) Discontinued [...] this topic Medical Devices Implanted Type Area Automatic Oven Operator Device Identifier Shelf Expiration Date Model / Serial / Lot Right Atrial Lead-03/17/2019 Implanted:Qty: 1 on 03/17/2019 by Tyler Brady MD Lead Implant Heart [facility] 01/01/20228TC-4 6 / [id number] / Right Ventricular Lead-03/17/2019 Implanted:Qty: 1 on 03/17/2019 by Tyler Brady MD Lead Implant Heart [facility] 02/01/20228TC-5 2 / [id number] / Sj Pacemaker-03/17 Implanted:Qty: 1 on 03/17/2019 by Tyler Brady MD Pacemaker Left: Chest [facility] 09/03/2020 [id number] / [id number] / Procedures Procedure Name Priority Date/Time Associated Diagnosis Comments OCCULT BLOOD, FECES STAT 10/25/2018 9 :14 AM INSTRUMENT AND CONTROL SERVICE PERSON from Last 3 Months or Most Recently Relevant to Health Maintenance Results * OCCULT BLOOD, FECES (10/25/2018 9:14 AM INSTRUMENT AND CONTROL SERVICE PERSON) OCCULT BLOOD FECAL NEGATIVE NEGATIVE 10/25/2018 9:29 AM INSTRUMENT AND CONTROL SERVICE PERSON [facility] STOOL SPECIMEN / Unknown 10/25/2018 9:14 AM INSTRUMENT AND CONTROL SERVICE PERSON Delbert Chowdary MD BODY FLUIDS AND STOOLS ORDERABLE S Final Result [facility] [address] [place] [address], [place] [phone] from Last 3 Months or Most Recently Relevant to Health Maintenance Insurance MEDICARE [facility] MEDICARE [employer] Advance Directives Documents on File Type Date Recorded Patient Lens Cementer Expl anation Advance Directives and Living Will 03/18/2019 7:44 AM Signed 11-30-13[facility] * Full Code (Latest Code Status on File) Date Activated Date Inactivated Comments 03/18/2019 2:01 AM 03/18/2019 2:52 PM * Full Code Date Activated Date Inactivated Comments 11/05/2018 2:25 PM 11/06/2018 5:57 PM * Full Code Date Activated Date Inactivated Comments 09/18/2018 1:31 PM 09/18/2018 4:45 PM Care Teams Rotary Drill Operator Relationship Specialty Start Date End Date Vinod López DO [address] [place] [address] PCP - General INTERNAL MEDICINE 03/16/[address] [facility] [address] [place] [address] Pender Generating Plant Superintendent CARDIOVASCULAR DISEASE 09/01/18
--- OUTSIDE RECORDS SUMMARY | 2025-08-09 10:10 | XMS_ITS | Encounter Summary ---
Author Organization [facility] Address [address] [place] [address] Care Team Providers Care Teletype Installer Name Role Phone Thanh Alexandre MD, Flash Unavailable [phone] Roger Hutchins DO Primary Care Provider [phone] Encounter Details Date Type Department Care Team (Late st Contact Info) Description 08/06/2025 Results Follow-Up [facility] Cardiology [address] [facility] [address] [facility] [address] [place] [address] Luzmaria Hernadez NP [address] [place], [place] [phone] Comprehensive metabolic panel, Thyroid Function Stewart, T4, free Social History Tobacco Use Types Packs/Day Years Used Date Smoking Tobacco: Never Smokeless Tobacco: Never Alcohol Use Standard Drinks/Week Comments Yes 0 (1 standard drink = 0.6 oz pure alcohol) Very rarely - wine holiday meal Comments Unknown Sex and Gender Information Value Date Recorded Sex Assigned at Not on file Legal Sex Female 3:20 AM PRIMARY SPECIAL EDUCATION TEACHER Gender Identity Female 11/18/2019 4:40 AM PRIMARY SPECIAL EDUCATION TEACHER Sexual Orientation Straight 11/18/2019 4: 40 AM PRIMARY SPECIAL EDUCATION TEACHER documented as of this encounter Plan of Treatment Not on file documented as of this encounter Visit Diagnoses Not on filedocumented in this encounter Care Teams Teletype Installer Relationship Specialty Start Date End Date Roger Hutchins DO [address] [place] [address] PCP - General Internal Medicine 06/08/25 Flash Law Jr., MD Medical Oncologist/Composite Laminator Medical Oncology 12/14/19 documented as of this encounter
--- OUTSIDE RECORDS SUMMARY | 2025-08-09 10:10 | XMS_ITS | Encounter Summary ---
Author Organization [facility] Address [address] [place] [address] Care Team Providers Care Student Counsellor Name Role Phone Akil Chan MD Primary Care Provider [phone] Tyler Brady MD Unavailable [phone] Vinod López DO Primary Care Provider [phone] Encounter Details Date Type Department Care Team (Late st Contact Info) Description 03/05/2019 Funplus Message Enc [facility] at [facility], [facility] [address] [place] [address] Tyler Brady MD [facility]. [facility] [address] [place], [place] [id number] Medication Questions Social History Tobacco Use Types [...] Sex Assigned at Female 11/05/2018 3:21 PM WANT AD RECEIVER Legal Sex Female 6:14 PM CDT Gender Identity Female 11/05/2018 3:21 PM WANT AD RECEIVER Sexual Orientation Not on file Occupation Industry Job Start Date Job End Date Not on file Not on file Not on file Not on file documented as of this encounter Plan of Treatment Not on file documented as of this encounter Visit Diagnoses Not on filedocumented in this encounter Care Teams Student Counsellor Relationship Specialty Start Date End Date Akil Chan MD PCP - General INTERNAL MEDICINE 09/01/18 03/15/19 Vinod López DO [address] [facility] [address] [place] [address] PCP - General INTERNAL MEDICINE 03/16/19 Tyler Brady MD [facility] [address] [place] [address] [place] [employer] Childcare Attendant CARDIOVASCULAR DISEASE 09/01/18 documented as of this encounter
--- OUTSIDE RECORDS SUMMARY | 2025-08-09 10:10 | XMS_ITS | Encounter Summary ---
Author Organization [facility] Address [address] [place] [address] Care Team Providers Care Airway Controller Name Role Phone Akil Chan MD Primary Care Provider [phone] Tyler Brady MD Unavailable [phone] Vinod López DO Primary Care Provider [phone] Encounter Details Date Type Department Care Team (Late st Contact Info) Description 10/13/2018 [employer] Message [facility] at [facility], [facility] [address] [place] [address] Tyler Brady MD [facility]. [facility] [address] [place], [place] [id number] Medication Questions Social History Tobacco Use Types [...] Sex Assigned at Female 11/05/2018 3:21 PM WORSHIP DIRECTOR Legal Sex Female 6:14 PM CDT Gender Identity Female 11/05/2018 3:21 PM WORSHIP DIRECTOR Sexual Orientation Not on file Occupation Industry Job Start Date Job End Date Not on file Not on file Not on file Not on file documented as of this encounter Plan of Treatment Not on file documented as of this encounter Visit Diagnoses Not on filedocumented in this encounter Care Teams Airway Controller Relationship Specialty Start Date End Date Akil Chan MD PCP - General INTERNAL MEDICINE 09/01/18 03/15/19 Vinod López DO 2090 [employer] [facility] [address] [place] [address] PCP - General INTERNAL MEDICINE 03/16/19 Tyler Brady MD [facility] [address] [place] [address] [place] Pin Cleaner CARDIOVASCULAR DISEASE 09/01/18 documented as of this encounter
--- OUTSIDE RECORDS SUMMARY | 2025-08-09 10:10 | XMS_ITS | Encounter Summary ---
Author Organization [facility] Address [address] [place] [address] Care Team Providers Care Mechanical Operator Name Role Phone Akil Chan MD Primary Care Provider [phone] Tyler Brady MD Unavailable [phone] Vinod López DO Primary Care Provider [phone] Encounter Details Date Type Department Care Team (Late st Contact Info) Description 09/08/2018 [place] [employer] Message Enc [facility] at [facility], [facility] [address] [place] [address] Tyler Brady MD [facility]. [facility] [address] [place], [place] [phone] Follow Up/Update Social History Tobacco Use Types [...] Assigned at Female 11/05/2018 3:21 PM MANAGER BILINGUAL Legal Sex Female 6:14 PM CDT Gender Identity Female 11/05/2018 3:21 PM MANAGER BILINGUAL Sexual Orientation Not on file documented as of this encounter Plan of Treatment Not on file documented as of this encounter Visit Diagnoses Not on filedocumented in this encounter Care Teams Mechanical Operator Relationship Specialty Start Date End Date Akil Chan MD PCP - General INTERNAL MEDICINE 09/01/18 03/15/19 Vinod López DO [address] [place] [address] [address] [place], [place] [id number] PCP - General INTERNAL MEDICINE 03/16/19 Tyler Brady MD [facility] [address] [place] [address] [place] Activity Coordinator CARDIOVASCULAR DISEASE 09/01/18 documented as of this encounter
--- OUTSIDE RECORDS SUMMARY | 2025-08-09 10:10 | XMS_ITS | Encounter Summary ---
Author Organization [facility] Address [address] [place] [address] Care Team Providers Care Supervisor Hydrochloric Area Name Role Phone Akil Chan MD Primary Care Provider [phone] Tyler Brady MD Unavailable [phone] Vinod López DO Primary Care Provider [phone] Encounter Details Date Type Department Care Team (Late st Contact Info) Description 11/22/2018 Digitel Message Enc [facility] at [facility], [facility] [address] [place] [address] Tyler Brady MD [facility]. [facility] [address] [place] [address] RE: Medication Questions Social History [...] Sex Assigned at Female 11/05/2018 3:21 PM MEDIA ANALYTICS MANAGER Legal Sex Female 6:14 PM CDT Gender Identity Female 11/05/2018 3:21 PM MEDIA ANALYTICS MANAGER Sexual Orientation Not on file Occupation Industry Job Start Date Job End Date Not on file Not on file Not on file Not on file documented as of this encounter Plan of Treatment Not on file documented as of this encounter Visit Diagnoses Not on filedocumented in this encounter Care Teams Supervisor Hydrochloric Area Relationship Specialty Start Date End Date Akil Chan MD PCP - General INTERNAL MEDICINE 09/01/18 03/15/19 Vinod López DO [address] [facility] [address] [place] [address] PCP - General INTERNAL MEDICINE 03/16/19 Tyler Brady MD [facility] [address] [place] [address] [place] Crime Investigator Special Agent CARDIOVASCULAR DISEASE 09/01/18 documented as of this encounter
--- OUTSIDE RECORDS SUMMARY | 2025-08-09 10:10 | XMS_ITS | Encounter Summary ---
Author Organization [facility] Address [address] [place] [address] Care Team Providers Care Technical Consultant Name Role Phone Akil Chan MD Primary Care Provider [phone] Tyler Brady MD Unavailable [phone] Vinod López DO Primary Care Provider [phone] Encounter Details Date Type Department Care Team (Late st Contact Info) Description 02/24/2019 [employer]I Technology Message Enc [facility] at [facility], [facility] [address] [place] [address] Tyler Brady MD [facility]. [facility] [address] [place] [address] Other Social History Tobacco Use [...] Assigned at Female 11/05/2018 3:21 PM BUSINESS EXCELLENCE LEADER Legal Sex Female 6:14 PM CDT Gender Identity Female 11/05/2018 3:21 PM BUSINESS EXCELLENCE LEADER Sexual Orientation Not on file Occupation Industry Job Start Date Job End Date Not on file Not on file Not on file Not on file documented as of this encounter Plan of Treatment Not on file documented as of this encounter Visit Diagnoses Not on filedocumented in this encounter Care Teams Technical Consultant Relationship Specialty Start Date End Date Akil Chan MD PCP - General INTERNAL MEDICINE 09/01/18 03/15/19 Vinod López DO 20[address] [facility] [address] [place] [address] PCP - General INTERNAL MEDICINE 03/16/19 Tyler Brady MD [facility] [address] [place] [address] Oral Briar Shop Supervisor CARDIOVASCULAR DISEASE 09/01/18 documented as of this encounter
--- OUTSIDE RECORDS SUMMARY | 2025-08-09 10:10 | XMS_ITS | Encounter Summary ---
Author Organization [facility] Address [address] [place] [address] Care Team Providers Care Political Advisor Name Role Phone Akil Chan MD Primary Care Provider [phone] Tyler Brady MD Unavailable [phone] Vinod López DO Primary Care Provider [phone] Encounter Details Date Type Department Care Team (Late st Contact Info) Description 02/20/2019 SoPost Message Enc [facility] at [facility], [facility] [address] [place] [address] Tyler Brady MD [facility]. [facility] [address] [place] [address] Other Social History Tobacco Use [...] Sex Assigned at Female 11/05/2018 3:21 PM WATER CONTROL SUPERVISOR Legal Sex Female 6:14 PM CDT Gender Identity Female 11/05/2018 3:21 PM WATER CONTROL SUPERVISOR Sexual Orientation Not on file Occupation Industry Job Start Date Job End Date Not on file Not on file Not on file Not on file documented as of this encounter Progress Notes * Margarita Mittal RN - 02/20/2019 10:13 AM CDT Phoned pt, as requested, 6 silicone strips mailed to her address ([facility]). Thank you, LP * Jimena Chapman RN - 02/20/2019 9:10 AM CDT See note. documented in this encounter Plan of Treatment Not on file documented as of this encounter Visit Diagnoses Not on filedocumented in this encounter Care Teams Political Advisor Relationship Specialty Start Date End Date Akil Chan MD PCP - General INTERNAL MEDICINE 09/01/18 03/15/19 Vinod López DO [address] [place] [address] PCP - General INTERNAL MEDICINE 03/16/19 Tyler Brady MD [facility]. [facility] [address] [place] [address] [place] Curing Oven Tender CARDIOVASCULAR DISEASE 09/01/18 documented as of this encounter
--- OUTSIDE RECORDS SUMMARY | 2025-08-09 10:11 | XMS_ITS | Encounter Summary ---
Author Organization [facility] Address [address] [place] [address] Care Team Providers Care Avionics Manager Name Role Phone Tyler Brady MD Unavailable [phone] Vinod López DO Primary Care Provider [phone] Encounter Details Date Type Department Care Team (Late st Contact Info) Description 03/16/2019 China[employer]NR Message [employer] [facility] at [facility], [facility] [address] [place] [address] Tyler Brady MD [facility]. [facility] [address] [place], [place] [id number] Follow Up/Update Social History Tobacco Use Types [...] Sex Assigned at Female 11/05/2018 3:21 PM ALUMINUM SIDING INSTALLER Legal Sex Female 6:14 PM CDT Gender Identity Female 11/05/2018 3:21 PM ALUMINUM SIDING INSTALLER Sexual Orientation Not on file Occupation [...] on filedocumented in this encounter Care Teams Avionics Manager Relationship Specialty Start Date End Date Vinod López DO 0 [employer] [facility] [address] [place] [address] PCP - General INTERNAL MEDICINE 03/16/19 Tyler Brady MD [facility] [address] [place] [address] [place] Occupational Therapy Assist CARDIOVASCULAR DISEASE 09/01/18 documented as of this encounter
--- OUTSIDE RECORDS SUMMARY | 2025-08-09 10:11 | XMS_ITS | Encounter Summary ---
Author Organization [facility] Address [address] [place] [address] Care Team Providers Care Pediatric Audiologist Name Role Phone Tyler Brady MD Unavailable [phone] Vinod López DO Primary Care Provider [phone] Encounter Details Date Type Department Care Team (Late st Contact Info) Description 03/23/2019 [employer]ios[employer] Message [facility] at [facility], [facility] [address] [place] [address] Tyler Brady MD [facility]. [facility] [address] [place], [place] [id number] Medication Questions Social History Tobacco Use Types [...] Sex Assigned at Female 11/05/2018 3:21 PM OPTICIAN MANAGER Legal Sex Female 6:14 PM CDT Gender Identity Female 11/05/2018 3:21 PM OPTICIAN MANAGER Sexual Orientation Not on file Occupation [...] on filedocumented in this encounter Care Teams Pediatric Audiologist Relationship Specialty Start Date End Date Vinod López DO 2089 [facility] [address] [place] [address] PCP - General INTERNAL MEDICINE 03/16/19 Tyler Brady MD [facility] [address] [place] [address] [place] Jammer Operator CARDIOVASCULAR DISEASE 09/01/18 documented as of this encounter
--- OUTSIDE RECORDS SUMMARY | 2025-08-09 10:11 | XMS_ITS | Encounter Summary ---
Author Organization [facility] Address [address] [place] [address] Care Team Providers Care Embedded Nurse Name Role Phone Tyler Brady MD Unavailable [phone] Vinod López DO Primary Care Provider [phone] Encounter Details Date Type Department Care Team (Late st Contact Info) Description 03/23/2019 [email or web address] Message [employer] [facility] at [facility], [facility] [address] [place] [address] Tyler Brady MD [facility]. [facility] [address] [place], [place] [id number] Medication Questions Social History Tobacco Use Types [...] Sex Assigned at Female 11/05/2018 3:21 PM BUGGY LOADER Legal Sex Female 6:14 PM CDT Gender Identity Female 11/05/2018 3:21 PM BUGGY LOADER Sexual Orientation Not on file Occupation Industry [...] Status No 03/17/2019 4:23 PM CDT Moni Gadriner R N Active * Because of a [...] on filedocumented in this encounter Care Teams Embedded Nurse Relationship Specialty Start Date End Date Vinod López DO 2089 [facility] [address] [place] [address] PCP - General INTERNAL MEDICINE 03/16/19 Tyler Brady MD [facility] [address] [place] [address] [place] Pack Mule Worker CARDIOVASCULAR DISEASE 09/01/18 documented as of this encounter
--- OUTSIDE RECORDS SUMMARY | 2025-08-09 10:11 | XMS_ITS | Patient Health Record ---
Author Organization [facility] Address [address] [id number] Care Team Providers Care Neon Installer Name Role Phone Eloina Erazo Primary Care Provider Allergies Allergen (clinical drug ingredient) Drug/Non Drug Allergy documented on EMR Reaction Allergy Type Onset Date Status nitrofurantoin, macrocrystals / nitrofurantoin, monohydrate Nitrofurantoin Monohyd Macro hives Drug Allergy Active Results Component Value Reference Range Notes Iron and TIBC Reviewed date:04/21/2025 02:05:03 PM Interpretation: Performing Lab: Notes/Report: Magnesium, Serum Reviewed date:04/21/2025 02:04:49 PM Interpretation: Performing Lab: Notes/Report: Basic Metabolic Panel (8) Reviewed date:04/21/2025 02:05:19 PM Interpretation: Performing Lab: Notes/Report: CBC Reviewed date:04/21/2025 02:04:33 PM Interpretation: Performing Lab: Notes/Report: Vitamin B12 Reviewed date:04/21/2025 02:05:49 PM Interpretation: Performing Lab: Notes/Report: Vitamin D, 1,25 Dihydroxy Reviewed date:04/21/2025 02:05:34 PM Interpretation: Performing Lab: Notes/Report: Potassium, Serum (Not yet re viewed by provider) Interpretation: Performing Lab: Notes/Report: Reason For Referral Reason Reoccurring UTI's Diagnosis 1 UTI symptoms (R39.9) Referral Organization [facility] Referring Provider First Name Eloina Referring Provider Last Name Castro Referred Organization [facility] Roger Referred Address [address] [place], Referred Provider Specialty Urology Referral Priority Routine Reason Strengthening Mobi lity Diagnosis 1 Strength loss of (R5 3.1) Referral Organization [facility] Referring Provider First Name Eloina Referring Provider Last Name Castro Referred Provider Specialty Physical The rapist General Notes Nelsy Miller 025 10:13:34 AM CDT >[place] Referral Priority Routine Referral Appointment Date 07/06/2025 Reason Strengthening Mobi lity Diagnosis 1 Strength loss of (R5 3.1) Referral Organization [facility] Referring Provider First Name Eloina Referring Provider Last Name Castro Referred Provider Specialty Occupational Therapy General Notes MillerOpalNelsy 025 10:12:41 AM CDT >[place] Referral Priority Routine Referral Appointment Date 06/07/2025 Medications Medication SIG (Take, Route, Frequency, Duration) Notes Start Date End Date Status Spironolactone 25 MG Tablet 1 tablet Ora lly Once a day; Duration: 30 days 07/31/2025 Active Vitamin D3 1.25 MG (49960 UT ) Capsule 1 tablet Orally weekly 04/21/2025 Activ e Cholecalciferol 1.25 MG (56036 UT) Capsule 1 capsule Orally once per week; Duration: 30 days 06/12/2025 Active Loratadine 10 MG Tablet 1 tablet as need ed Orally Once a day Active Levothyroxine Sodium 125 MCG Tablet 1 tablet in the morning on an empty stomach Orally Once a day Active Acetaminophen 8 Hour 650 MG Tablet Extended Release 2 tablets Orally every 12 hrs Active Potassium Chloride ER 20 MEQ Tablet Extended Release 2 capsule with food Orally daily; Duration: 4 days Active Ferrous Sulfate 325 (65 Fe) MG Tablet 1 tablet Orally daily; Duration: 30 days 06/12/2025 Active Empagliflozin 10 MG Tablet 1 tablet Oral ly Once a day Active Bumetanide 2 MG Tablet 1 tablet Orally t wice daily Active Rosuvastatin Calcium 10 MG Tablet 1 tablet Orally Once a day Active Rivaroxaban 20 MG Tablet 1 tablet with f ood Orally Once a day Active PreserVision AREDS - Tablet 1 tablet Ora lly twice daily Active traMADol HCl 50 MG Tablet 1 tablet as ne eded Orally nightly at bedtime Active Metoprolol Tartrate 50 MG Tablet 1 tablet with food Orally Twice a day Active metFORMIN HCl 500 MG Tablet 1 tablet Ora lly twice daily Active Pramipexole Dihydrochloride 1 MG Tablet 1 tablet Orally three times daily Active Gabapentin 600 MG Tablet 1 tablet Orally three times daily Active Omeprazole 20 MG Capsule Delayed Release 1 capsule 1/2 to 1 hour before morning meal Orally twice daily Active Potassium Chloride ER 20 MEQ Tablet Extended Release 2 tablet with food Orally twice a day; Duration: 90 days 04/21/2025 Active Fluoxetine 20 MG Capsule 2 capsule Orall y Once a day; Duration: 90 days Active Symbicort 160-4.5 MCG/ACT Aerosol 2 puffs Inhalation twice a day 06/10/2025 Active ALPRAZolam 0.25 MG Tablet 1 tablet as ne eded Orally Twice a day; Duration: 14 days 05/26/2025 Active Social History Tobacco Use: Social History Observation Description Date Details (start date - stop date) Never Smoker NA - NA Social History Drug/Alcohol: Social Info Question Answer Notes Drugs Have you used drugs other than those for medical reasons in the past 12 months? No AUDIT-C (Standard) Did you have a drink containing alcohol in the past year? Yes How often did you have a drink containing alcohol in the past year? Monthly or less (1 point) How many drinks did you have on a typical day when you were drinking in the past year? 1 or 2 drinks (0 point) How often did you have six or more drinks on one occasion in the past year? Never (0 point) Points 1 Interpretation Negative Tobacco Use: Social Info Question Answer Notes Tobacco Control (Standard) Tobacco use: Nonsmoker Problems Problem Type SNOMED Code ICD Code Onset Dates Problem Status W/U Status Risk Notes Problem Iron deficiency anemia (21928459) Iron deficiency anemia, unspecified (D50.9) Active confirmed Problem Hypothyroidism (91427144) Hypothyroidism, unspecified (E03.9) Active confirmed Problem Essential hypertension (10215466) Essential (primary) hypertension (I10) Active confirmed Problem Paroxysmal atrial fibrillation (783118164) Paroxysmal atrial fibrillation (I48.0) Active confirmed Problem Gastro-esophageal reflux disease without esophagitis (009249919) Gastro-esophageal reflux disease without esophagitis (K21.9) Active confirmed Problem Vitamin D deficiency (14317100) Vitamin D deficiency (E55.9) Active confirmed Problem Hyperlipidemia (54219056) Hyperlipidemia (E78.5) Active confirmed Problem Restless legs syndrome (80199762) Restless leg syndrome (G25.81) Active confirmed Problem Heart failure (79819446) Acute on chronic heart failure, unspecified heart failure type (I50.9) Active confirmed Problem Atrial fibrillation (81643850) Atrial fibrillation with RVR (I48.91) Active confirmed Vital Signs Heart Rate 77 /min 06/10/2025 Temperature 97.2 degrees Fahrenheit 05/26/2025 Respiratory Rate 20 /min 06/10/2025 Oximetry 94 % 06/10/2025 Blood pressure diastolic 57 mm Hg 06/10/2025 Blood pressure systolic 98 mm Hg 06/10/2025 Encounters Encounter Location Date Provider Diagnosis [address] [address] 02/25/2025 Eloina Erazo Essential (primary) hypertension I10 ; Paroxysmal atrial fibrillation I48.0 ; Hyperlipidemia E78.5 ; Hypothyroidism, unspecified E03.9 ; Iron deficiency anemia, unspecified D50.9 and Type 2 diabetes with nephropathy E11.[address] [address] 04/09/2025 Eloina Erazo Acute on chronic hea rt failure, unspecified heart failure type I50.9 ; Acute hypokalemia E87.6 ; Nausea R11.0 and Restless leg syndrome G25.[address] [address] 05/26/2025 Eloina Erazo Essential (primary) hypertension I10 ; Acute on chronic heart failure, unspecified heart failure type I50.9 ; Paroxysmal atrial fibrillation I48.0 ; Hyperlipidemia E78.5 ; Hypothyroidism, unspecified E03.9 ; Iron deficiency anemia, unspecified D50.9 and Type 2 diabetes with nephropathy E11.[address] [address] 06/10/2025 Eloina Erazo Acute on chronic hea rt failure, unspecified heart failure type I50.9 ; Atrial fibrillation with RVR I48.91 and Hypokalemia E87.[address] [address] 02/03/2025 [facility] [address] [id number] 02/08/2025 Eloina Erazo [address] [address] 02/24/2025 Eloina Erazo [facility] [place] [address] [place] [address] 03/18/2025 Eloina Erazo [facility] [address] [id number] 04/02/2025 Eloina Erazo [facility] [place] [address] [place] [address] 04/08/2025 Eloina Erazo [facility] [address] [id number] 04/09/2025 Eloina Erazo [facility] [place] [address] [place] [address] 04/21/2025 Eloina Erazo [facility] [address] [place] [id number] 05/05/2025 Eloina Erazo [facility] [place] [address] [place] [address] 05/20/2025 [facility] [address] [place] [id number] 05/26/2025 Eloina Erazo [facility] [place] [address] [place] [address] 06/10/2025 Eloina Erazo [facility] [place] [address] [place] [address] 06/12/2025 [facility]ina [facility]razo [facility] [address] [place] [id number] 06/15/2025 Eloina Erazo [facility] [place] [address] [place] [address] 06/28/2025 Eloina Erazo [facility] [place] [address] [place] [address] 07/16/2025 Eloina Erazo [facility] [address] [place] [id number] 07/22/2025 El[facility]ina Erazo [facility] [address] [place] [id number] 07/31/2025 Eloina Erazo Assessments Encounter Date Diagnosis (ICD Code) Assessment Notes Treatment Notes Treatment Clinical Notes Section Notes 02/25/2025 Essential (primary) hypertension (ICD-10 - I10) No V/S available at time of visit. Ask staff to get vital signs and send to office, but none have been received at this time. 02/25/2025 Paroxysmal atrial fibrillation (ICD-10 - I48.0) Rate controlled. Well managed on current medication regimen. Continue with current treatment plan and monitoring. 04/09/2025 Acute on chronic heart failure, unspecified heart failure type (ICD-10 - I50.9) acute exacerbation of CHF and hypokalemia. Current status is as follows: stable. She was sent to ED due to SOB and chest pressure. She was found to have O2 sats of 88% on RA. COVID, Flu, and RSV all negative. K+ level was 2.9 on admission but was up to 3.4 when discharged. 04/09/2025 Acute hypokalemia (ICD-10 - E87.6) K+ level was 2.9 on admission but was up to 3.4 when discharged. Order given to draw BMP on next lab day. 05/26/2025 Essential (primary) hypertension (ICD-10 - I10) Blood pressure is stable.Managed well on current medications.Cont inue current treatment plan and monitoring. 05/26/2025 Acute on chronic heart failure, unspecified heart failure type (ICD-10 - I50.9) Discharged from [facility] on 05/20/2025, admitted from 05/17/2025 to 05/20/2025 for hypoxemia and heart failure. While in the hospital, they did decrease her Bumex to 1 mg twice a day and suggested, she follow-up with her set up mechanic crown assembly machine. She did see her set up mechanic crown assembly machine on Saturday. They started her on amiodarone 200 mg b.i.d. x1 week and then will be 200 mg daily after that. They reported to her that if this does not work, there is nothing more they can do about her heart failure and that she would have around six months to one year. The patient also had low O2 sat while in the hospital and they did a home O2 test but she did not qualify for oxygen at that time. She reports that she does get short of breath when walking long distances, so she tends to just stay in her room. 06/10/2025 Acute on chronic heart failure, unspecified heart failure type (ICD-10 - I50.9) Patient does not have any signs and symptoms of fluid overload at this time. Trace edema noted to bilateral lower extremities, compression stockings in place. Managed well on current medications. Continue current treatment plan and monitoring. Patient follows with cardiology. 06/10/2025 Atrial fibrillation with RVR (ICD-10 - I48.91) Patient was admitted with Afib with RVR, once her electrolytes were replenished, she naturally converted back to a regular rhythm and they did not have to do a cardioversion. Patient continues to be on amiodarone. Patient follows with cardiology. 06/10/2025 Hypokalemia (ICD-10 - E87.6) When patient was admitted to the hospital, her potassium was reported to be extremely low, no value was given. She was given IV fluids and potassium supplements and her levels leveled out. They discharge her back to the facility on KCL 40 mEq b.i.d. Order given to draw BMP on next lab day. 05/26/2025 Paroxysmal atrial fibrillation (ICD-10 - I48.0) Rate controlled. Well managed on current medication regimen. Continue with current treatment plan and monitoring. 02/25/2025 Hyperlipidemia (ICD-10 - E78.5) 02/12/25- lipid panel= LDL low (70). Well managed on current medication regimen. Continue with current treatment plan and monitoring. Encouraged a heart healthy diet. 04/09/2025 Nausea (ICD-10 - R11.0) C/O being nauseated since returning back from the hospital. Script sent for Zofran 4mg ODT Q6hr PRN. Instructed to take 30min prior to eating. 04/09/2025 Restless leg syndrome (ICD-10 - G25.81) Reports her RLS has been really bothering her lately. Explained we would check some labs before changing anything. Draw CBC, iron panel, and magnesium level on next lab day. 02/25/2025 Hypothyroidism, unspecified (ICD-10 - E03.9) 02/12/25- TSH WNL (2.162). Well managed on current medication regimen. Continue with current treatment plan and monitoring. 05/26/2025 Hyperlipidemia (ICD-10 - E78.5) 02/12/25- lipid panel= LDL low (70). Well managed on current medication regimen. Continue with current treatment plan and monitoring. Encouraged a heart healthy diet. 05/26/2025 Hypothyroidism, unspecified (ICD-10 - E03.9) 02/12/25- TSH WNL (2.162). Well managed on current medication regimen. Continue with current treatment plan and monitoring. 02/25/2025 Iron deficiency anemia, unspecified (ICD-10 - D50.9) 02/12/25- Hgb=10.4. RBC and HCT- WNL. No iron panel on file. . Continue to monitor. 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 Continue on current medications. Repeat A1C in three months. Well managed on current medication regimen. Continue with current treatment plan and monitoring. She does report that she has a neuropathy in her legs, but is taking Gabapentin. She reports that the gabapentin is helping. 05/26/2025 Iron deficiency anemia, unspecified (ICD-10 - D50.9) 02/12/25- Hgb=10.4. RBC and HCT- WNL. No iron panel on file. . Continue to monitor. 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 Continue on current medications. Repeat A1C in three months. Well managed on current medication regimen. Continue with current treatment plan and monitoring. She does report that she has a neuropathy in her legs, but is taking Gabapentin. She reports that the gabapentin is helping. 02/25/2025 Other Continue current treatment plan.Staff to continue to monitor and report any changes.Patient education provided and questions/concer ns addressed.Follow up in three months unless necessary sooner. Reviewed HIPAA Right to Privacy Practices with patient/family/c aregiver. 04/09/2025 Other Continue current treatment plan. Staff to continue to monitor and report any changes. Patient education provided and questions/concer ns addressed. Follow up in 3 months unless necessary sooner. Reviewed HIPAA Right to Privacy Practices with patient/family/c aregiver. 05/26/2025 Other Continue curren t treatment plan.Staff to continue to monitor and report any changes.Patient education provided and questions/concer ns addressed.Follow up in three months unless necessary sooner. 06/10/2025 Other Continue current treatment plan. Staff to continue to monitor and report any changes. Patient education provided and questions/concer ns addressed. Follow up in 3 months unless necessary sooner. 04/21/2025 Other CancelRx Response got Denied on 2025-06-12 12:54:35 for 'Ferrous Sulfate 325 (65 Fe) MG Tablet'Pharmacy Notes: Unable to Cancel Rx. Please contact Pharmacy Plan Of Treatment Pending Test Test Name Order Date Potassium, Serum 04/28/2025 Iron and TIBC 06/21/2025 CBC With Differential/Platelet Vitamin D, 1,25 Dihydroxy 06/21/2025 Future Test Test Name Order Date Basic Metabolic Panel (8) 06/12/2025 Insurance Providers Payer Name Payer Address Payer Phone Subscriber Number Group Number Insured Name Patient Relationship to Insured Coverage Start Date Coverage End Date [employer] of [place] [address] OXNARDFRANKI QUINTERO [id number] Krista Osorio Self - patient is the insured Medical (General) History Medical History History ICD Code Hyperlipidemia E78.5 Restless leg syndrome G25.81 Sarcoidosis of skin D86.3 Unspecified systolic (congestive) heart failure I50.20 Iron deficiency anemia, unspecified D50. 9 Paroxysmal atrial fibrillation I48.0 Depression, unspecified F32.A Gastro-esophageal reflux disease without esophagitis K21.9 Type 2 diabetes with nephropathy E11.21 Hypothyroidism, unspecified E03.9 Essential (primary) hypertension I10 Surgical History Surgery Date(Month/Year) fracture surgery hernia repair joint replacemnt knee arthroscopy humerus surgery tonsillectomy tubal ligation
--- OUTSIDE RECORDS SUMMARY | 2025-08-09 10:11 | XMS_ITS | Encounter Summary ---
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 Legal Sex Female 6:14 PM CDT Gender Identity Female 11/05/2018 3:21 PM MOTOR ASSEMBLY SUPERVISOR Sexual Orientation Not on file documented [...] on filedocumented in this encounter Care Teams Biomedical Manager Relationship Specialty Start Date End Date Akil Chan MD PCP - General INTERNAL MEDICINE 09/01/18 03/15/19 Vinod López DO 2089 [facility] [address] [place] [address] PCP - General INTERNAL MEDICINE 03/16/19 Tyler Brady MD [facility] [address] [place] [address] [employer] Pigment And Lacquer Mixer CARDIOVASCULAR DISEASE 09/01/18 documented as of this encounter
--- OUTSIDE RECORDS SUMMARY | 2025-08-09 10:11 | XMS_ITS | Encounter Summary ---
Author Organization [facility] Address [address] [place] [address] Care Team Providers Care Oil Burner Journeyman Name Role Phone Tyler Brady MD Unavailable [phone] Vinod López DO Primary Care Provider [phone] Encounter Details Date Type Department Care Team (Late st Contact Info) Description 03/19/2019 [employer] Message [employer] [facility] at [facility], [facility] [address] [place] [address] Tyler Brady MD [facility]. 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
--- OUTSIDE RECORDS SUMMARY | 2025-08-09 10:11 | XMS_ITS | Encounter Summary ---
Author Organization [facility] Healthcare Address [address] [place] [address] Care Team Providers Care Maintenance Of Way Clerk Name Role Phone Vinod López DO Primary Care Provider [phone] Thanh Alexandre MD, Flash Unavailable [phone] Roger Hutchins DO Primary Care Provider [phone] Encounter Details Date Type Department Care Team (Late st Contact Info) Description 05/29/2025 Orders Only [facility] [place] Health Information Management [address] [place] [address] Scanning, Provider Social History Tobacco Use Types Packs/Day Years Used Date Smoking Tobacco: Never Smokeless Tobacco: Never Alcohol Use Standard Drinks/Week Comments Yes 0 (1 standard drink = 0.6 oz pure alcohol) Very rarely - wine holiday meal Comments Unknown Sex and Gender Information Value Date Recorded Sex Assigned at Not on file Legal Sex Female 3:20 AM PROPELLANT CHARGE ZONE ASSEMBLER Gender Identity Female 11/18/2019 4:40 AM PROPELLANT CHARGE ZONE ASSEMBLER Sexual Orientation Straight 11/18/2019 4: 40 AM PROPELLANT CHARGE ZONE ASSEMBLER documented as of this encounter Plan of Treatment Not on file documented as of this encounter Procedures Procedure Name Priority Date/Time Associated Diagnosis Comments SCAN - RADIOLOGY/IMAGING 05/29/2025 documented in this encounter Results * SCAN - RADIOLOGY/IMAGING (05/29/2025) Anatomical Region Laterality Modality Other us Provider Scanning Edited Result - Final documented in this encounter Visit Diagnoses Not on filedocumented in this encounter Care Teams Maintenance Of Way Clerk Relationship Specialty Start Date End Date Vinod López DO PCP - General Internal Medicine 11/11/19 06/07/25 Roger Hutchins DO [address] [facility] [place] [address] PCP - General Internal Medicine 06/08/25 Flash Law Jr., MD Medical Oncologist/Stone Driller Medical Oncology 12/14/19 documented as of this encounter
--- OUTSIDE RECORDS SUMMARY | 2025-08-09 10:11 | XMS_ITS | Encounter Summary ---
Author Organization [facility] Healthcare Address [address] [place] [address] Care Team Providers Care Communications Superintendent Name Role Phone Vinod López DO Primary Care Provider [phone] Thanh Alexandre MD, Flash Unavailable [phone] Roger Hutchins DO Primary Care Provider [phone] Encounter Details Date Type Department Care Team (Late st Contact Info) Description 04/06/2025 [place] Only [facility] [place] [address] [place] [address] Scanning, Provider Social History Tobacco Use Types Packs/Day Years Used Date Smoking Tobacco: Never Smokeless Tobacco: Never Alcohol Use Standard Drinks/Week Comments Yes 0 (1 standard drink = 0.6 oz pure alcohol) Very rarely - wine holiday meal Comments Unknown Sex and Gender Information Value Date Recorded Sex Assigned at Not on file Legal Sex Female 3:20 AM AUDIT ANALYST Gender Identity Female 11/18/2019 4:40 AM AUDIT ANALYST Sexual Orientation Straight 11/18/2019 4: 40 AM AUDIT ANALYST documented as of this encounter Plan of [...] on filedocumented in this encounter Care Teams Communications Superintendent Relationship Specialty Start Date End Date Vinod López DO PCP - General Internal Medicine 11/11/19 06/07/25 Roger Hutchins DO [address] [facility] [address] PCP - General Internal Medicine 06/08/25 Flash Law Jr., MD Medical Oncologist/Exhibit Carpenter Medical Oncology 12/14/19 documented as of this encounter
--- OUTSIDE RECORDS SUMMARY | 2025-08-09 10:11 | XMS_ITS | Encounter Summary ---
Author Organization [facility] Healthcare Address [address] [place] [address] Care Team Providers Care Ship Rigger Name Role Phone Akil Chan MD Primary Care Provider [phone] Vinod López DO Primary Care Provider [phone] Thanh Alexandre MD, Flash Unavailable [phone] Roger Hutchins DO Primary Care Provider [phone] Encounter Details Date Type Department Care Team (Late st Contact Info) Description 07/15/[address] [facility] [place] Health Information Management [address] [place] [address] Scanning, Provider Social History Tobacco Use Types Packs/Day Years Used Date Smoking Tobacco: Never Alcohol Use Standard Drinks/Week Comments Yes 0 (1 standard drink = 0.6 oz pur e alcohol) Comments Unknown Sex and Gender Information Value Date Recorded Sex Assigned at Not on file Legal Sex Female 3:20 AM INFANTRY UNIT LEADER Gender Identity Female 11/18/2019 4:40 AM INFANTRY UNIT LEADER Sexual Orientation Straight 11/18/2019 4: 40 AM INFANTRY UNIT LEADER documented as of this encounter Plan of Treatment Not on file documented as of this encounter Procedures Procedure Name Priority Date/Time Associated Diagnosis Comments CARDIOLOGY DOCUMENT SCAN 07/15/2018 documented in this encounter Results * Cardiology Document Scan (07/15/2018) Anatomical Region Laterality Modality Other us Provider Scanning CV CARDIAC SERVICES PROCEDURES Final Result documented in this encounter Visit Diagnoses Not on filedocumented in this encounter Care Teams Ship Rigger Relationship Specialty Start Date End Date Akil Chan MD PCP - General 02/05/17 11/10/19 Vinod López DO PCP - General Internal Medicine 11/11/19 06/07/25 Roger Hutchins DO [address] [place] [address] PCP - General Internal Medicine 06/08/25 Flash Law Jr., MD Medical Oncologist/Spray Dry Operator Medical Oncology 12/14/19 documented as of this encounter
--- OUTSIDE RECORDS SUMMARY | 2025-08-09 10:11 | XMS_ITS | Encounter Summary ---
Author Organization [facility] Address [address] [place] [address] Care Team Providers Care Box Feeder Name Role Phone Akil Chan MD Primary Care Provider [phone] Tyler Brady MD Unavailable [phone] Vinod López DO Primary Care Provider [phone] Encounter Details Date Type Department Care Team (Late st Contact Info) Description 09/03/2018 PlanStan Message Enc [facility] at [facility], [facility] [address] [place] [address] Tyler Brady MD [facility]. [facility] [address] [place], [place] [id number] Follow Up/Update Social History Tobacco Use Types [...] Assigned at Female 11/05/2018 3:21 PM MOTOR VEHICLE LICENSE CLERK Legal Sex Female 6:14 PM CDT Gender Identity Female 11/05/2018 3:21 PM MOTOR VEHICLE LICENSE CLERK Sexual Orientation Not on file documented as of this encounter Plan of Treatment Not on file documented as of this encounter Visit Diagnoses Not on filedocumented in this encounter Care Teams Box Feeder Relationship Specialty Start Date End Date Akil Chan MD PCP - General INTERNAL MEDICINE 09/01/18 03/15/19 Vinod López DO [address] [place] [address] [address] [place], [place] [id number] PCP - General INTERNAL MEDICINE 03/16/19 Tylre Brady MD [facility] [address] [place] [address] Mcdonald Mill Feeder CARDIOVASCULAR DISEASE 09/01/18 documented as of this encounter
--- OUTSIDE RECORDS SUMMARY | 2025-08-09 10:11 | XMS_ITS | Encounter Summary ---
Author Organization [facility] Address [facility] [place] [address] Care Team Providers Care Silviculture Teacher Name Role Phone Tyler Brady MD Unavailable [phone] Vinod López DO Primary Care Provider [phone] Encounter Details Date Type Department Care Team (Late st Contact Info) Description 03/27/2019 Sp[employer] Message [facility] at [facility], [facility] [address] [place] [address] Tyler Brady MD [facility]. [facility] [address] [place], [place] [id number] Other Social History Tobacco Use Types Packs/Day [...] Sex Assigned at Female 11/05/2018 3:21 PM CONSUMER SALES REPRESENTATIVE Legal Sex Female 6:14 PM CDT Gender Identity Female 11/05/2018 3:21 PM CONSUMER SALES REPRESENTATIVE Sexual Orientation Not on file Occupation Industry [...] on filedocumented in this encounter Care Teams Silviculture Teacher Relationship Specialty Start Date End Date Vinod López DO [address] [facility] [address] [place] [address] PCP - General INTERNAL MEDICINE 03/16/19 Tyler Brady MD [facility] [address] [place] [address] [place] [employer] Transport Operator CARDIOVASCULAR DISEASE 09/01/18 documented as of this encounter
== END 2025-08-09 09:22 | disposition home or self-care (01) ==
PROVIDERS: Visit Provider Internal Medicine Critical Care Medicine
DX: R59.0 Localized enlarged lymph nodes (principal); J84.89 Other specified interstitial pulmonary diseases
CPT/HCPCS: 71250

== ENCOUNTER 2025-08-13 07:50 | Outpatient (CLI) | payer MEDICARE, OTHER, SELFPAY ==
--- OUTSIDE RECORDS SUMMARY | 2025-08-13 07:55 | XMS_ITS | Encounter Summary ---
Author Organization [facility] Address [address] [place] [address] Care Team Providers Care Chief Of Party Name Role Phone Akil Chan MD Primary Care Provider [phone] Tyler Brady MD Unavailable [phone] Vinod López DO Primary Care Provider [phone] Encounter Details Date Type Department Care Team (Late st Contact Info) Description 11/22/2018 Runteq Message Enc [facility] at [facility], [facility] [address] [place] [address] Tyler Brady MD [facility]. [facility] [address] [place] [address] RE: Medication Questions Social History [...] Sex Assigned at Female 11/05/2018 3:21 PM PACKAGE LIFT OPERATOR Legal Sex Female 6:14 PM CDT Gender Identity Female 11/05/2018 3:21 PM PACKAGE LIFT OPERATOR Sexual Orientation Not on file Occupation Industry Job Start Date Job End Date Not on file Not on file Not on file Not on file documented as of this encounter Plan of Treatment Not on file documented as of this encounter Visit Diagnoses Not on filedocumented in this encounter Care Teams Chief Of Party Relationship Specialty Start Date End Date Akil Chan MD PCP - General INTERNAL MEDICINE 09/01/18 03/15/19 Vinod López DO [address] [facility] [address] [place] [address] PCP - General INTERNAL MEDICINE 03/16/19 Tyler Brady MD [facility] [address] [place] [address] Juntura Lap Welder CARDIOVASCULAR DISEASE 09/01/18 documented as of this encounter
--- OUTSIDE RECORDS SUMMARY | 2025-08-13 07:55 | XMS_ITS | Encounter Summary ---
Author Organization [facility] Address [address] [place] [address] Care Team Providers Care Roll Cleaner Name Role Phone Akil Chan MD Primary Care Provider Tyler Brady MD Unavailable [phone] Vinod López DO Primary Care Provider [phone] Encounter Details Date Type Department Care Team (Late st Contact Info) Description 12/01/2018 zhouwu Message Enc [facility] at [facility], [facility] [address] [place] [address] Tyler Brady MD [facility]. [facility] [address] [place], [place] [id number] Test Results Social History Tobacco Use Types [...] Sex Assigned at Female 11/05/2018 3:21 PM WELDER PRODUCTION LINE GAS Legal Sex Female 6:14 PM CDT Gender Identity Female 11/05/2018 3:21 PM WELDER PRODUCTION LINE GAS Sexual Orientation Not on file Occupation Industry Job Start Date Job End Date Not on file Not on file Not on file Not on file documented as of this encounter Progress Notes * Jimena Chapman RN - 12/01/2018 10:49 AM CST See patient record request - thank you. ER PRODUCTION LINE GAS documented in this encounter Plan of Treatment Not on file documented as of this encounter Visit Diagnoses Not on filedocumented in this encounter Care Teams Roll Cleaner Relationship Specialty Start Date End Date Akil Chan MD PCP - General INTERNAL MEDICINE 09/01/18 03/15/19 Vinod López DO [address] [place], [place] [address] [id number] PCP - General INTERNAL MEDICINE 03/16/19 Tyler Brady MD [facility] [address] [place] [address] [place] Chicken Picker CARDIOVASCULAR DISEASE 09/01/18 documented as of this encounter
--- OUTSIDE RECORDS SUMMARY | 2025-08-13 07:56 | XMS_ITS | Encounter Summary ---
Author Organization [facility] Address [address] [place] [address] Care Team Providers Care Last Picker Name Role Phone Akil Chan MD Primary Care Provider [phone] Tyler Brady MD Unavailable [phone] Vinod López DO Primary Care Provider [phone] Encounter Details Date Type Department Care Team (Late st Contact Info) Description 02/16/2019 [employer] Message Enc [facility] at [facility], [facility] [address] [place] [address] Tyler Brady MD [facility]. [facility] [address] [place], [place] [id number] Question Social History Tobacco Use Types Packs/Day [...] Sex Assigned at Female 11/05/2018 3:21 PM DATA ANALYTICS CHIEF SCIENTIST Legal Sex Female 6:14 PM CDT Gender Identity Female 11/05/2018 3:21 PM DATA ANALYTICS CHIEF SCIENTIST Sexual Orientation Not on file Occupation Industry Job Start Date Job End Date Not on file Not on file Not on file Not on file documented as of this encounter Plan of Treatment Not on file documented as of this encounter Visit Diagnoses Not on filedocumented in this encounter Care Teams Last Picker Relationship Specialty Start Date End Date Akil Chan MD PCP - General INTERNAL MEDICINE 09/01/18 03/15/19 Vinod López DO [address] [facility] [address] [place] [address] PCP - General INTERNAL MEDICINE 03/16/19 Tyler Brady MD [facility] [address] [place] [address] [place] Correctional Officer Sergeant CARDIOVASCULAR DISEASE 09/01/18 documented as of this encounter
--- OUTSIDE RECORDS SUMMARY | 2025-08-13 07:56 | XMS_ITS | Encounter Summary ---
Author Organization [facility] Address [address] [place] [address] Care Team Providers Care Gridcap Machine Operator Name Role Phone Akil Chan MD Primary Care Provider [phone] Tyler Brady MD Unavailable [phone] Vinod López DO Primary Care Provider [phone] Encounter Details Date Type Department Care Team (Late st Contact Info) Description 09/05/2018 Existence Before Essence Message Enc [facility] at [facility], [facility] [address] [place] [address] Tyler Brady MD [facility]. [facility] [address] [place], [place] [id number] Medication Questions Social History Tobacco Use Types [...] Sex Assigned at Female 11/05/2018 3:21 PM ASSIGNMENT DESK ASSISTANT Legal Sex Female 6:14 PM CDT Gender Identity Female 11/05/2018 3:21 PM ASSIGNMENT DESK ASSISTANT Sexual Orientation Not on file documented as of this encounter Plan of Treatment Not on file documented as of this encounter Visit Diagnoses Not on filedocumented in this encounter Care Teams Gridcap Machine Operator Relationship Specialty Start Date End Date Akil Chan MD PCP - General INTERNAL MEDICINE 09/01/18 03/15/19 Vinod López DO [address] [place] [address] [address] [place], [place] [id number] PCP - General INTERNAL MEDICINE 03/16/19 Tyler Brady MD [facility] [address] [place] [address] Seney Options Advisor CARDIOVASCULAR DISEASE 09/01/18 documented as of this encounter
--- OUTSIDE RECORDS SUMMARY | 2025-08-13 07:56 | XMS_ITS | Encounter Summary ---
Author Organization [facility] Healthcare Address [address] [place] [address] Care Team Providers Care Liquor Gallery Operator Name Role Phone Akil Chan MD Primary Care Provider [phone] Vinod López DO Primary Care Provider [phone] Thanh Alexandre MD, Flash Unavailable [phone] Roger Hutchins DO Primary Care Provider [phone] Encounter Details Date Type Department Care Team (Late st Contact Info) Description 07/15/2018 Orders Only [facility] [place] [address] [place] [address] Scanning, Provider Social History Tobacco Use Types Packs/Day Years Used Date Smoking Tobacco: Never Alcohol Use Standard Drinks/Week Comments Yes 0 (1 standard drink = 0.6 oz pur e alcohol) Comments Unknown Sex and Gender Information Value Date Recorded Sex Assigned at Not on file Legal Sex Female 3:20 AM EMBEDDED SOFTWARE DEVELOPER Gender Identity Female 11/18/2019 4:40 AM EMBEDDED SOFTWARE DEVELOPER Sexual Orientation Straight 11/18/2019 4: 40 AM EMBEDDED SOFTWARE DEVELOPER documented as of this encounter Plan of [...] on filedocumented in this encounter Care Teams Liquor Gallery Operator Relationship Specialty Start Date End Date Akil Chan MD PCP - General 02/05/17 11/10/19 Vinod López DO PCP - General Internal Medicine 11/11/19 06/07/25 Roger Hutchins DO [address] [place] [address] PCP - General Internal Medicine 06/08/25 Flash Law Jr., MD Medical Oncologist/Shovel Mechanic Medical Oncology 12/14/19 documented as of this encounter
--- OUTSIDE RECORDS SUMMARY | 2025-08-13 07:56 | XMS_ITS | Encounter Summary ---
Author Organization [facility] Address [facility] [place] [address] Care Team Providers Care Slide Developer Name Role Phone Tyler Brady MD Unavailable [phone] Vinod López DO Primary Care Provider [phone] Encounter Details Date Type Department Care Team (Late st Contact Info) Description 03/23/2019 [employer] Message [facility] at [facility], [facility] [address] [place] [address] Tyler Brady MD [facility]. [facility] [address] [place], [place] [id number] Medication Questions Social History Tobacco Use Types [...] at Female 11/05/2018 3:21 PM DIRECTOR OF ALUMNI RELATIONS Legal Sex Female 6:14 PM CDT Gender Identity Female 11/05/2018 3:21 PM DIRECTOR OF ALUMNI RELATIONS Sexual Orientation Not on file Occupation Industry [...] on filedocumented in this encounter Care Teams Slide Developer Relationship Specialty Start Date End Date Vinod López DO [address] [facility] [address] [place] [address] PCP - General INTERNAL MEDICINE 03/16/19 Tyler Brady MD [facility] [address] [place] [address] [place] Grant Coordinator CARDIOVASCULAR DISEASE 09/01/18 documented as of this encounter
--- OUTSIDE RECORDS SUMMARY | 2025-08-13 07:56 | XMS_ITS | Encounter Summary ---
Author Organization [facility] Address [address] [place] [address] Care Team Providers Care Auto Collision Repair Instructor Name Role Phone Tyler Brady MD Unavailable [phone] Vinod López DO Primary Care Provider [phone] Encounter Details Date Type Department Care Team (Late st Contact Info) Description 03/19/2019 [facility] [employer] [place] Message [employer] [facility] at [facility], [facility] [address] [place] [address] Tyler Brady MD [facility]. [facility] [address] [place], [place] [id number] Follow Up/Update Social History Tobacco Use Types [...] Sex Assigned at Female 11/05/2018 3:21 PM COAL WASHER Legal Sex Female 6:14 PM CDT Gender Identity Female 11/05/2018 3:21 PM COAL WASHER Sexual Orientation Not on file Occupation Industry [...] on filedocumented in this encounter Care Teams Auto Collision Repair Instructor Relationship Specialty Start Date End Date Vinod López DO [address] [facility] [address] [place] [address] PCP - General INTERNAL MEDICINE 03/16/19 Tyler Brady MD [facility] [address] [place] [address] L[place]um Utility Tractor Operator CARDIOVASCULAR DISEASE 09/01/18 documented as of this encounter
--- OUTSIDE RECORDS SUMMARY | 2025-08-13 07:56 | XMS_ITS | Encounter Summary ---
Author Organization [facility] Address [address] [place] [address] Care Team Providers Care Practice Or Student Teacher Name Role Phone Akil Chan MD Primary Care Provider [phone] Tyler Brady MD Unavailable [phone] Vinod López DO Primary Care Provider [phone] Encounter Details Date Type Department Care Team (Late st Contact Info) Description 11/03/2018 Navigating Cancer Message Enc [facility] at [facility], [facility] [address] [place] [address] Tyler Brady MD [facility]. [facility] [address] [place] [address] Follow Up/Update Social History Tobacco [...] Sex Assigned at Female 11/05/2018 3:21 PM CONCRETE FLOAT MAKER Legal Sex Female 6:14 PM CDT Gender Identity Female 11/05/2018 3:21 PM CONCRETE FLOAT MAKER Sexual Orientation Not on file Occupation Industry Job Start Date Job End Date Not on file Not on file Not on file Not on file documented as of this encounter Plan of Treatment Not on file documented as of this encounter Visit Diagnoses Not on filedocumented in this encounter Care Teams Practice Or Student Teacher Relationship Specialty Start Date End Date Akil Chan MD PCP - General INTERNAL MEDICINE 09/01/18 03/15/19 Vinod López DO [address] [facility] [address] [place] [address] PCP - General INTERNAL MEDICINE 03/16/19 Tyler Brady MD [facility] [address] [place] [address] [place] Senior Grants Officer CARDIOVASCULAR DISEASE 09/01/18 documented as of this encounter
--- OUTSIDE RECORDS SUMMARY | 2025-08-13 07:56 | XMS_ITS | Encounter Summary ---
Author Organization [facility] Address [facility] [place] [address] Care Team Providers Care Machine Sole Leveler Name Role Phone Tyler Brady MD Unavailable [phone] Vinod López DO Primary Care Provider [phone] Encounter Details Date Type Department Care Team (Late st Contact Info) Description 03/23/2019 [employer] Message [facility] at [facility], [facility] [address] [place] [address] Tyler Brady MD [facility] [address] [place], [place] [id number] Medication Questions Social History Tobacco Use Types [...] Sex Assigned at Female 11/05/2018 3:21 PM POTABLE WATER TREATMENT OPERATOR Legal Sex Female 6:14 PM CDT Gender Identity Female 11/05/2018 3:21 PM POTABLE WATER TREATMENT OPERATOR Sexual Orientation Not on file Occupation [...] on filedocumented in this encounter Care Teams Machine Sole Leveler Relationship Specialty Start Date End Date Vinod López DO [address] [facility] [address] [place] [address] PCP - General INTERNAL MEDICINE 03/16/19 Tyler Brady MD [facility] [address] [place] [address] [place] Director Public Service CARDIOVASCULAR DISEASE 09/01/18 documented as of this encounter
--- OUTSIDE RECORDS SUMMARY | 2025-08-13 07:56 | XMS_ITS | Encounter Summary ---
Author Organization [facility] Address [address] [place] [address] Care Team Providers Care Gravel Machine Operator Name Role Phone Akil Chan MD Primary Care Provider [phone] Tyler Brady MD Unavailable [phone] Vinod López DO Primary Care Provider [phone] Encounter Details Date Type Department Care Team (Late st Contact Info) Description 09/17/2018 Hospital Orders Only [facility] at [facility], [address] [id number] Roger Mcnamara MD [facility]. [address] [address] Social History Tobacco Use Types [...] Sex Assigned at Female 11/05/2018 3:21 PM NET FINISHER Legal Sex Female 6:14 PM CDT Gender Identity Female 11/05/2018 3:21 PM NET FINISHER Sexual Orientation Not on file documented as of this encounter Plan of Treatment Not on file documented as of this encounter Visit Diagnoses Not on filedocumented in this encounter Care Teams Gravel Machine Operator Relationship Specialty Start Date End Date Akil Chan MD PCP - General INTERNAL MEDICINE 09/01/18 03/15/19 Vinod López DO [address] [place] [address] 204 [place] [address] PCP - General INTERNAL MEDICINE 03/16/19 Tyler Brady MD [facility] [address] [place] [address] [place] [employer] Classroom Teacher CARDIOVASCULAR DISEASE 09/01/18 documented as of this encounter
--- OUTSIDE RECORDS SUMMARY | 2025-08-13 07:56 | XMS_ITS | Encounter Summary ---
Author Organization [facility] Address [address] [place] [address] Care Team Providers Care Service Architect Name Role Phone Akil Chan MD Primary Care Provider [phone] Tyler Brady MD Unavailable [phone] Vinod López DO Primary Care Provider [phone] Encounter Details Date Type Department Care Team (Late st Contact Info) Description 02/16/2019 [employer] Message Enc [facility] at [facility], [facility] [address] [place] [address] Tyler Brady MD [facility]. [facility] [address] [place], [place] [id number] Follow Up/Update Social History Tobacco Use Types [...] Sex Assigned at Female 11/05/2018 3:21 PM HVAC TECHNICIAN RESIDENTIAL Legal Sex Female 6:14 PM CDT Gender Identity Female 11/05/2018 3:21 PM HVAC TECHNICIAN RESIDENTIAL Sexual Orientation Not on file Occupation Industry Job Start Date Job End Date Not on file Not on file Not on file Not on file documented as of this encounter Plan of Treatment Not on file documented as of this encounter Visit Diagnoses Not on filedocumented in this encounter Care Teams Service Architect Relationship Specialty Start Date End Date Akil Chan MD PCP - General INTERNAL MEDICINE 09/01/18 03/15/19 Vinod López DO [address] [facility] [address] [place] [address] PCP - General INTERNAL MEDICINE 03/16/19 Tyler Brady MD [facility] [address] [place] [address] [place] Medical Front Desk Coordinator CARDIOVASCULAR DISEASE 09/01/18 documented as of this encounter
--- OUTSIDE RECORDS SUMMARY | 2025-08-13 07:56 | XMS_ITS | Encounter Summary ---
Author Organization [facility] Address [address] [place] [address] Care Team Providers Care Chief Orthoptist Name Role Phone Tyler Brady MD Unavailable [phone] Vinod López DO Primary Care Provider [phone] Encounter Details Date Type Department Care Team (Late st Contact Info) Description 03/16/2019 [employer] Message [facility] at [facility] [place] [address] [place] [address] Tyler Brady MD [facility]. [facility] [address] [place], [place] [address] Follow Up/Update Social History Tobacco Use Types [...] Sex Assigned at Female 11/05/2018 3:21 PM CLIENT ACCOUNT ASSISTANT Legal Sex Female 6:14 PM CDT Gender Identity Female 11/05/2018 3:21 PM CLIENT ACCOUNT ASSISTANT Sexual Orientation Not on file Occupation [...] filedocumented in this encounter Care Teams Chief Orthoptist Relationship Specialty Start Date End Date Vinod López DO 0 [employer] [facility] [address] [place] [address] PCP - General INTERNAL MEDICINE 03/16/19 Tyler Brady MD [facility] [address] [place] [address] [place] Enamel Finisher CARDIOVASCULAR DISEASE 09/01/18 documented as of this encounter
--- OUTSIDE RECORDS SUMMARY | 2025-08-13 07:56 | XMS_ITS | Encounter Summary ---
Author Organization [facility] Address [address] [place] [address] Care Team Providers Care Dry House Tender Name Role Phone Akil Chan MD Primary Care Provider [phone] Tyler Brady MD Unavailable [phone] Vinod López DO Primary Care Provider [phone] Encounter Details Date Type Department Care Team (Late st Contact Info) Description 10/22/2018 [employer] Message Enc [facility] at [facility], [facility] [address] [place] [address] Tyler Brady MD [facility]. [facility] [address] [place] [address] Follow Up/Update Social History Tobacco [...] Assigned at Female 11/05/2018 3:21 PM BUGGY MAN Legal Sex Female 6:14 PM CDT Gender Identity Female 11/05/2018 3:21 PM BUGGY MAN Sexual Orientation Not on file Occupation Industry [...] the patient. Message sent to Dr. Brady. Y MAN documented in this encounter Plan of Treatment Not on file documented as of this encounter Visit Diagnoses Not on filedocumented in this encounter Care Teams Dry House Tender Relationship Specialty Start Date End Date Akil Chan MD PCP - General INTERNAL MEDICINE 09/01/18 03/15/19 Vinod López DO [address] [facility] [address] [place], [place] [address] PCP - General INTERNAL MEDICINE 03/16/19 Tyler Brady MD [facility]. [place] [address] [place] [address] [place] Primary Special Education Teacher CARDIOVASCULAR DISEASE 09/01/18 documented as of this encounter
--- OUTSIDE RECORDS SUMMARY | 2025-08-13 07:56 | XMS_ITS | Encounter Summary ---
Author Organization [facility] Address [address] [place] [address] Care Team Providers Care Public Relations Consultant Name Role Phone Akil Chan MD Primary Care Provider [phone] Tyler Brady MD Unavailable [phone] Vinod López DO Primary Care Provider [phone] Encounter Details Date Type Department Care Team (Late st Contact Info) Description 09/10/2018 [employer] Message Enc [facility] at [facility], [facility] [address] [place] [address] Tyler Brady MD [facility]. [facility] [address] [place], [place] [id number] Medication Questions Social History Tobacco Use Types [...] Sex Assigned at Female 11/05/2018 3:21 PM FARM SUPERVISOR Legal Sex Female 6:14 PM CDT Gender Identity Female 11/05/2018 3:21 PM FARM SUPERVISOR Sexual Orientation Not on file documented as of this encounter Plan of Treatment Not on file documented as of this encounter Visit Diagnoses Not on filedocumented in this encounter Care Teams Public Relations Consultant Relationship Specialty Start Date End Date Akil Chan MD PCP - General INTERNAL MEDICINE 09/01/18 03/15/19 Vinod López DO [address] [place] [address] 204 [place], [place] [id number] PCP - General INTERNAL MEDICINE 03/16/19 Tyler Brady MD [facility] [address] [place] [address] [place] Community Dietitian CARDIOVASCULAR DISEASE 09/01/18 documented as of this encounter
--- OUTSIDE RECORDS SUMMARY | 2025-08-13 07:56 | XMS_ITS | Encounter Summary ---
Author Organization [facility] Address [address] [place] [address] Care Team Providers Care Speech Language Therapist Name Role Phone Akil Chan MD Primary Care Provider [phone] Tyler Brady MD Unavailable [phone] Vinod López DO Primary Care Provider [phone] Encounter Details Date Type Department Care Team (Late st Contact Info) Description 09/03/2018 Abstract [facility] at [address] [address] Torres Oshea [place] Social History [...] Sex Assigned at Female 11/05/2018 3:21 PM DYNAMICS AX SOLUTION ARCHITECT Legal Sex Female 6:14 PM CDT Gender Identity Female 11/05/2018 3:21 PM DYNAMICS AX SOLUTION ARCHITECT Sexual Orientation Not on file documented as [...] on filedocumented in this encounter Care Teams Speech Language Therapist Relationship Specialty Start Date End Date Akil Chan MD PCP - General INTERNAL MEDICINE 09/01/18 03/15/19 Vinod López DO [address] [facility] 204 [place] [address] PCP - General INTERNAL MEDICINE 03/16/19 Tyler Brady MD [facility] [address] [place] [address] [place] Rough Planer Tender CARDIOVASCULAR DISEASE 09/01/18 documented as of this encounter
--- OUTSIDE RECORDS SUMMARY | 2025-08-13 07:56 | XMS_ITS | Encounter Summary ---
Author Organization [facility] Address [address] [place] [address] Care Team Providers Care Printmaker Name Role Phone Akil Chan MD Primary Care Provider [phone] Tyler Brady MD Unavailable [phone] Vinod López DO Primary Care Provider [phone] Encounter Details Date Type Department Care Team (Late st Contact Info) Description 09/08/2018 [employer] Message Enc [facility] at [facility], [facility] [address] [place] [address] Tyler Brady MD [facility]. [facility] [address] [place], [place] [address] Follow Up/Update Social History Tobacco Use Types [...] Sex Assigned at Female 11/05/2018 3:21 PM INSPECTOR AGRICULTURAL COMMODITIES Legal Sex Female 6:14 PM CDT Gender Identity Female 11/05/2018 3:21 PM INSPECTOR AGRICULTURAL COMMODITIES Sexual Orientation Not on file documented as of this encounter Plan of Treatment Not on file documented as of this encounter Visit Diagnoses Not on filedocumented in this encounter Care Teams Printmaker Relationship Specialty Start Date End Date Akil Chan MD PCP - General INTERNAL MEDICINE 09/01/18 03/15/19 Vinod López DO [address] [place] [address] 204 [place], [place] [address] PCP - General INTERNAL MEDICINE 03/16/19 Tyler Brady MD [facility] [address] [place] [address] [place] Stars Coordinator CARDIOVASCULAR DISEASE 09/01/18 documented as of this encounter
--- OUTSIDE RECORDS SUMMARY | 2025-08-13 07:56 | XMS_ITS | Encounter Summary ---
Author Organization [facility] Address [address] [place] [address] Care Team Providers Care Rug Setter [place] Name Role Phone Akil Chan MD Primary Care Provider [phone] Tyler Brady MD Unavailable [phone] Vniod López DO Primary Care Provider [phone] Encounter Details Date Type Department Care Team (Late st Contact Info) Description 03/10/2019 [employer] Message Enc [facility] at [facility], [facility] [address] [place] [address] Tyler Brady MD [facility]. [facility] [address] [place], [place] [address] Medication Questions Social History Tobacco Use Types [...] Sex Assigned at Female 11/05/2018 3:21 PM FABRIC AND ACCESSORIES ESTIMATOR Legal Sex Female 6:14 PM CDT Gender Identity Female 11/05/2018 3:21 PM FABRIC AND ACCESSORIES ESTIMATOR Sexual Orientation Not on file Occupation Industry Job Start Date Job End Date Not on file Not on file Not on file Not on file documented as of this encounter Plan of Treatment Not on file documented as of this encounter Visit Diagnoses Not on filedocumented in this encounter Care Teams Rug Setter [place] Relationship Specialty Start Date End Date Akil Chan MD PCP - General INTERNAL MEDICINE 09/01/18 03/15/19 Vinod López DO 2090 [facility] [address] [place] [address] PCP - General INTERNAL MEDICINE 03/16/19 Tyler Brady MD [facility] [address] [place] [address] [place] Scrap Kettle Tender CARDIOVASCULAR DISEASE 09/01/18 documented as of this encounter
--- OUTSIDE RECORDS SUMMARY | 2025-08-13 07:56 | XMS_ITS | Encounter Summary ---
Author Organization [facility] Address [address] [place] [address] Care Team Providers Care Submarine Diver Name Role Phone Akil Chan MD Primary Care Provider [phone] Tyler Brady MD Unavailable [phone] Vinod López DO Primary Care Provider [phone] Encounter Details Date Type Department Care Team (Late st Contact Info) Description 12/18/2018 [employer] Message Enc [facility] at [facility], [facility] [address] [place] [address] Tyler Brady MD [facility]. [facility] [address] [place], [place] [address] Follow Up/Update Social History Tobacco Use Types [...] Sex Assigned at Female 11/05/2018 3:21 PM AUTOMOTIVE ENGINEERING TECHNICIAN Legal Sex Female 6:14 PM CDT Gender Identity Female 11/05/2018 3:21 PM AUTOMOTIVE ENGINEERING TECHNICIAN Sexual Orientation Not on file Occupation Industry Job Start Date Job End Date Not on file Not on file Not on file Not on file documented as of this encounter Progress Notes * Tyler Brady MD - 12/19/2018 6:10 PM CST Hi, I think Mrs. Osorio should see whichever surgical training specialist she is most comfortable seeing and can see the soonest. Thanks MOTIVE ENGINEERING TECHNICIAN * Jimena Chapman RN - 12/19/2018 2:15 PM CST The surgical training specialist referral has been in limbo since you [...] from the patient. Forwarded to Dr. Brady. MOTIVE ENGINEERING TECHNICIAN documented in this encounter Plan of Treatment Not on file documented as of this encounter Visit Diagnoses Not on filedocumented in this encounter Care Teams Submarine Diver Relationship Specialty Start Date End Date Akil Chan MD PCP - General INTERNAL MEDICINE 09/01/18 03/15/19 Vinod López DO [address] [place] [address] PCP - General INTERNAL MEDICINE 03/16/19 Tyler Brady MD [facility] [address] [place] [address] Eddie Studio Data Analyst CARDIOVASCULAR DISEASE 09/01/18 documented as of this encounter
--- OUTSIDE RECORDS SUMMARY | 2025-08-13 07:56 | XMS_ITS | Encounter Summary ---
Author Organization [facility] Address [address] [place] [address] Care Team Providers Care Change Person Name Role Phone Akil Chan MD Primary Care Provider Tyler Brady MD Unavailable [phone] Vinod López DO Primary Care Provider [phone] Encounter Details Date Type Department Care Team (Late st Contact Info) Description 02/20/2019 [employer] Message Enc [facility] at [facility] [address] [place] [address] Tyler Brady MD [facility]. [facility] [address] [place] [address] Other Social History Tobacco Use [...] Sex Assigned at Female 11/05/2018 3:21 PM HEAD BOYS GOLF COACH Legal Sex Female 6:14 PM CDT Gender Identity Female 11/05/2018 3:21 PM HEAD BOYS GOLF COACH Sexual Orientation Not on file Occupation Industry [...] on filedocumented in this encounter Care Teams Change Person Relationship Specialty Start Date End Date Akil Chan MD PCP - General INTERNAL MEDICINE 09/01/18 03/15/19 Vinod López DO [address] [place] [address] PCP - General INTERNAL MEDICINE 03/16/19 Tyler Brady MD [facility]. [facility] [address] [place] [address] [place] Market Sales Manager CARDIOVASCULAR DISEASE 09/01/18 documented as of this encounter
--- OUTSIDE RECORDS SUMMARY | 2025-08-13 07:56 | XMS_ITS | Clinical Summary ---
Author Organization [facility] [employer] Address [address] [place] [address] Care Team Providers Care Outside Sales Engineer Name Role Phone Vinod López Primary Care Provider [phone] Source Comments [facility] [facility],non-owned Affiliates and Associated Physician Practices is amultiple site organization consisting of ambulatory clinics and hospital sitesin [place], [place], [place] and [place]. This disclosure is being madepursuant to the Care Everywhere program and may not contain all information available regarding this patient. Last updated 18.[facility] [employer] Allergies Active Allergy Reactions Criticality Noted Date [...] on file Legal Sex Female 8:43 PM BACTERIOLOGIST PHARMACEUTICAL Gender Identity Not on file Sexual Orientation Not on file Last Filed Vital Signs Vital Sign Reading Time Taken Comments Blood Pressure 136/82 11/07/2020 10:57 AM BACTERIOLOGIST PHARMACEUTICAL Pulse 70 11/07/2020 10:57 AM BACTERIOLOGIST PHARMACEUTICAL Temperature - - Respiratory Rate 12 11/07/2020 10:5 7 AM BACTERIOLOGIST PHARMACEUTICAL Oxygen Saturation - - Inhaled Oxygen Concentration - - Weight 124.4 kg (274 lb 3.2 oz) 021 10:57 AM BACTERIOLOGIST PHARMACEUTICAL Height 160 cm (5' 3) 11/07/2020 10:57 AM BACTERIOLOGIST PHARMACEUTICAL Body Mass Index 48.57 11/07/2020 10:57 AM BACTERIOLOGIST PHARMACEUTICAL Plan of Treatment Health Maintenance Due Date [...] SAM Subscriber ID:Not on file (Home) Address: [address] [place] [id number] Payer ID:Not on file Group ID:Not on file Type:Self Pay Address: [place], [place] Care Teams Outside Sales Engineer Relationship Specialty Start Date End Date Vinod López DO [address] [place], [place] [id number] PCP - General Internal Medicine 04/03/19
--- OUTSIDE RECORDS SUMMARY | 2025-08-13 07:56 | XMS_ITS | Encounter Summary ---
Author Organization [facility] Address [facility] [place] [address] Care Team Providers Care Rehabilitation Case Coordinator Name Role Phone Tyler Brady MD Unavailable [phone] Vinod López DO Primary Care Provider [phone] Encounter Details Date Type Department Care Team (Late st Contact Info) Description 03/27/2019 [employer] Message [facility] at [facility], [facility] [address] [place] [address] Tyler Brady MD [facility]. [facility] [address] [place], [place] [id number] Other Social History Tobacco Use Types Packs/Day [...] Sex Assigned at Female 11/05/2018 3:21 PM FRONT END ENGINEER Legal Sex Female 6:14 PM CDT Gender Identity Female 11/05/2018 3:21 PM FRONT END ENGINEER Sexual Orientation Not on file Occupation Industry [...] on filedocumented in this encounter Care Teams Rehabilitation Case Coordinator Relationship Specialty Start Date End Date Vinod López DO [address] [facility] 204 [place] [address] PCP - General INTERNAL MEDICINE 03/16/19 Tyler Brady MD [facility] [address] [place] [address] [place] Certified Physical Therapist Assistant CARDIOVASCULAR DISEASE 09/01/18 documented as of this encounter
--- OUTSIDE RECORDS SUMMARY | 2025-08-13 07:56 | XMS_ITS | Encounter Summary ---
Author Organization [facility] Address [address] [place] [address] Care Team Providers Care Rf Test Engineer Name Role Phone Akil Chan MD Primary Care Provider [phone] Tyler Brady MD Unavailable [phone] Vinod López DO Primary Care Provider [phone] Encounter Details Date Type Department Care Team (Late st Contact Info) Description 09/03/2018 [employer] Message Enc [facility] at [facility], [facility] [address] [place] [address] Tyler Brady MD [facility]. [facility] [address] [place] [address] Follow Up/Update Social History Tobacco [...] Sex Assigned at Female 11/05/2018 3:21 PM SORT SUPERVISOR Legal Sex Female 6:14 PM CDT Gender Identity Female 11/05/2018 3:21 PM SORT SUPERVISOR Sexual Orientation Not on file documented as of this encounter Plan of Treatment Not on file documented as of this encounter Visit Diagnoses Not on filedocumented in this encounter Care Teams Rf Test Engineer Relationship Specialty Start Date End Date Akil Chan MD PCP - General INTERNAL MEDICINE 09/01/18 03/15/19 Vinod López DO [address] [place] [address] 204 [place], [place] [address] PCP - General INTERNAL MEDICINE 03/16/19 Tyler Brady MD [facility] [address] [place] [address] [place] Cranberry Bog Supervisor CARDIOVASCULAR DISEASE 09/01/18 documented as of this encounter
--- OUTSIDE RECORDS SUMMARY | 2025-08-13 07:56 | XMS_ITS | Encounter Summary ---
Author Organization [facility] Address [address] [place] [address] Care Team Providers Care Software Applications Designer Name Role Phone Akil Chan MD Primary Care Provider [phone] Tyler Brady MD Unavailable [phone] Vinod López DO Primary Care Provider [phone] Encounter Details Date Type Department Care Team (Late st Contact Info) Description 02/02/2019 [employer]Bill[employer] Message Enc [facility] at [facility], [facility] [address] [place] [address] Tyler Brady MD [facility]. [facility] [address] [place] [address] Follow Up/Update Social History Tobacco [...] Sex Assigned at Female 11/05/2018 3:21 PM REEL CART OPERATOR Legal Sex Female 6:14 PM CDT Gender Identity Female 11/05/2018 3:21 PM REEL CART OPERATOR Sexual Orientation Not on file Occupation [...] had no further questions. Message to the trade union secretary. * Tyler Brady MD - 02/03/2019 [...] fibrillation documented in this encounter Care Teams Software Applications Designer Relationship Specialty Start Date End Date Akil Chan MD PCP - General INTERNAL MEDICINE 09/01/18 03/15/19 Vinod López DO [address] [place] [address] 204 [place], [place] [id number] PCP - General INTERNAL MEDICINE 03/16/19 Tyler Brady MD [facility] [address] [place] [address] [place] Electrical Tests Supervisor CARDIOVASCULAR DISEASE 09/01/18 documented as of this encounter
--- OUTSIDE RECORDS SUMMARY | 2025-08-13 07:56 | XMS_ITS | Encounter Summary ---
Author Organization [facility] Healthcare Address [address] [place] [address] Care Team Providers Care Assistant Track Coach Name Role Phone Vinod López DO Primary Care Provider [phone] Thanh Alexandre MD, Flash Unavailable [phone] Roger Hutchins DO Primary Care Provider [phone] Encounter Details Date Type Department Care Team (Late st Contact Info) Description 04/06/2025 Orders Only [facility] Health Information Management [address] [place] [address] Scanning, Provider Social History Tobacco Use Types Packs/Day Years Used Date Smoking Tobacco: Never Smokeless Tobacco: Never Alcohol Use Standard Drinks/Week Comments Yes 0 (1 standard drink = 0.6 oz pure alcohol) Very rarely - wine holiday meal Comments Unknown Sex and Gender Information Value Date Recorded Sex Assigned at Not on file Legal Sex Female 3:20 AM HOME EXTENSION AGENT Gender Identity Female 11/18/2019 4:40 AM HOME EXTENSION AGENT Sexual Orientation Straight 11/18/2019 4: 40 AM HOME EXTENSION AGENT documented as of this encounter Plan of [...] filedocumented in this encounter Care Teams Assistant Track Coach Relationship Specialty Start Date End Date Vinod López DO PCP - General Internal Medicine 11/11/19 06/07/25 Roger Hutchins DO [address] [facility] [place] [place] [address] PCP - General Internal Medicine 06/08/25 Flash Law Jr., MD Medical Oncologist/Carbon Brush Maker Medical Oncology 12/14/19 documented as of this encounter
--- OUTSIDE RECORDS SUMMARY | 2025-08-13 07:56 | XMS_ITS | Clinical Summary ---
Author Organization [facility] al Address [address] [place] [address] Care Team Providers Care Home Health Lpn Name Role Phone Thanh Alexandre MD, Flash Unavailable [phone] Roger Hutchins DO Primary Care Provider [phone] Allergies Active Allergy Reactions Criticality Noted Date [...] (1,300 mg total) by mouth 2 Active gabapentin (NEURONTIN) 600 mg tablet 3 [...] mouth daily 90 tablet 3 5 Active amiodarone (Pacerone) 200 mg tablet Take 1 tablet (200 mg total) by mouth daily 90 tablet 1 5 Active ferrous sulfate 325 mg (65 [...] total) by mouth daily 30 tablet 3 5 07/29/20 Discontinu ed(Reorder ) amiodarone (Pacerone) 200 mg tablet Take 1 tablet (200 mg total) by mouth 5 08/12/20 Discontinu ed(Reorder ) Active Problems Problem Noted Date Diagnosed Date Cardiac pacemaker in situ 06/09/2025 Overview (06/09/2025): Butts Asssean Dual Pacemaker. Dx; SSS, Afib. DOI 03/17/2019[facility] remote [facility] requested 06/09/25. 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 Encounters Date Type Department Care Team Description 08/06/2025 Results Follow-Up [facility] Cardiology [address] [place] [address] [place] [phone] Luzmaria Hernadez NP Comprehensive metabolic panel, Thyroid Function Todd, T4, free 07/27/2025 11:00 AM CDT Ancillary Procedure [facility] Cardiology [address] [place] [phone] Arrived 07/20/2025 9:30 AM CDT Office Visit [facility] Cardiology [address] [place] [address] [place] [phone] Luzmaria Hernadez NP Persistent atrial fibrillation (HCC); On amiodarone therapy; Chronic diastolic congestive heart failure (HCC); Pulmonary hypertension (HCC); Nonrheumatic tricuspid valve regurgitation; History of cardiac pacemaker 07/15/2025 Telephone [facility] Cardiology [address] [place] [address] [place] [phone] Luzmaria Hernadez NP BP readings; Rapid Heart Rate 07/02/2025 Results Follow-Up [facility] Cardiology [address] [place] [address] [place] [phone] Luzmaria Hernadez NP Basic metabolic panel 07/02/2025 Orders Only [facility] Cardiology [address] [place] [address] [place] [phone] Ciara Arroyo NP 06/17/2025 Orders Only [facility] [address] [place] [address] Brenda Garcia NP Persistent atrial fibrillation (HCC) (Primary Dx) 06/09/2025 Orders Only [facility] Cardiology [address] [facility] [address], [place] [address] Tyler Mancilla MD Cardiac pacemaker in situ (Primary Dx); Persistent atrial fibrillation (HCC); SSS (sick sinus syndrome) (HCC) 06/08/2025 10:00 AM CDT Office Visit [facility] Cardiology [address] [place] [address] [place] [phone] Luzmaria Hernadez NP Persistent atrial fibrillation (HCC); Chronic diastolic congestive heart failure (HCC); Chest pain, unspecified type; Pulmonary hypertension (HCC); Nonrheumatic tricuspid valve regurgitation; History of cardiac pacemaker; Hospital discharge follow-up 06/04/2025 Orders Only [facility] Cardiology [address] [place] [address] [place] [phone] Virgen Caldwell MD 06/03/[address] [facility] Cardiology [address] [place] [address] [place] [phone] Virgen Caldwell MD 05/31/2025 Orders Only [facility] Cardiology [address] [place] [address] [place] [phone] Steven Reynolds MD 05/29/2025 Orders Only [facility] Health Information Management [address] [place] [address] Scanning, Provider 05/27/2025 Results Follow-Up [facility] [address] [address] Vijaya Buchanan NP Urine culture Urine, bladder 05/25/2025 8:05 PM CDT - 05/25/2025 11:59 PM CDT Hospital Encounter [facility] [address] [place] [address] Acute cystitis with hematuria Discharge Disposition: Discharge to home or self care 05/25/2025 4:15 PM CDT Office Visit [facility] Convenient Care at [address] [address] Eloina Sullivan PA Acute cystitis with hematuria (Primary Dx) 05/13/2025 Orders Only [facility] Cardiology [address] [place] [address] Tre Herrera MD from Last [...] History Relation Name Comments Heart disease Brother Edmauricio Anemia Daughter 1 Mariangel Jo Anemia Daughter [...] history of Hypertension; Arthritis Sister 1 Keshia Murray Vocnikki Heart disease Sister 1 Keshia Murray Voci [...] Sister 2 Bell Humphrey Sister 3 Corinne Bellerose Son Bill Osorio Social History Tobacco Use [...] on file Legal Sex Female 3:20 AM MARKET RESEARCHER Gender Identity Female 11/18/2019 4:40 AM MARKET RESEARCHER Sexual Orientation Straight 11/18/2019 4: 40 AM MARKET RESEARCHER Obstetrics History Last Filed Vital Signs Vital [...] 3 Months Results * (ABNORMAL) Thyroid Function Todd (08/03/2025 7:58 AM CDT) TSH 0.13(L) 0.40 - 4.50 mIU/L [facility] Blood 08/03/2025 7:58 AM CDT 08/03/2025 7:58 AM CDT Luzmaria Hernadez SURFACE WATER TECHNICIAN LAB BLOOD ORDERABLES Sagrario l Result Performing Organization Address [facility] Co de Phone Number QUEST [facility] [address] [place] [address] * (ABNORMAL) T4, free (08/03/2025 7:58 AM CDT) Free T4 2.1(H) 0.8 - 1.8 ng/dL [facility] 08/03/2025 7:58 AM CDT 08/03/2025 7:58 AM CDT Luzmaria Hernadez SURFACE WATER TECHNICIAN LAB BLOOD ORDERABLES Sagrario l Result Performing Organization Address [facility] Co de Phone Number [facility]ST [facility] [address] [place] [address] * (ABNORMAL) Comprehensive metabolic panel (08/03/2025 7:58 AM CDT) Glucose 87 65 - 99 mg/dL [facility] [...] 08/03/2025 7:58 AM CDT us Luzmaria Hernadez NP LAB BLOOD ORDERABLES Sagrario l Result [facility] [address] [place] [address] * (ABNORMAL) Basic metabolic panel (07/01/2025 7:37 AM CDT) Glucose 92 65 - 99 mg/dL [facility] [...] BLOOD ORDERABLES Sagrario l Result [facility] [address] [place] [address] * Cardiology Document Scan (06/03/2025 2:09 PM [...] Negative Ketones, ur, POC Negative Negative Specific [place], POC 1.015 1.003 - 1.030 Blood, ur, POC Non-hemolyzed , trace(A) Negative pH, ur, POC 6.5 5.0 - 8.0 Protein, ur, POC Negative Negative Urobilinogen, urine, POC 0.2 0.2 - 1.0 mg/dL Nitrite, ur, POC Negative Negative Leukocytes, ur, POC Small(A) Negative Lot Number 0 Urine 05/25/2025 4:25 PM CDT Result [facility] Eloina PEREZ POINT OF CARE TEST ORDER PRANEETH Final Result * Urine culture Urine, bladder (05/25/2025 3:00 PM CDT) Report Final Report: Less than 100,000 colonies/mL (clinically insignificant growth based on current clinical standards) Comment:Testing performed by : [facility], [address] [facility] [place]., [address] Organism (CLINICALLY INSIGNIFICANT GROWTH CERNER Urine, bladder 05/25/2025 3: 00 PM CDT 05/25/2025 9:53 PM CDT Narrative MIGUEL CH - 05/27/2025 3:27 AM CDT Testing performed by [facility] Microbiology Laboratory ([phone]) Eloina PEREZ LAB MICROBIOLOGY - GENER [place] [id number] Franco Department of Laboratories [place] [id number] from Last 3 Months Insurance MEDICARE FOR LIFE MEDICARE FOR LIFE MEDICARE [facility] FOR LIFE Care Teams Home Health Lpn Relationship Specialty Start Date End Date Roger Hutchins DO [address] [place] [address] PCP - General Internal Medicine 06/08/25 Flash Law Jr., MD Medical Oncologist/Rough Rice Tender Medical Oncology 12/14/19
--- OUTSIDE RECORDS SUMMARY | 2025-08-13 07:56 | XMS_ITS | Encounter Summary ---
Author Organization [facility] Address [address] [place] [address] Care Team Providers Care Sales Representative Sales Manager Name Role Phone Akil Chan MD Primary Care Provider [phone] Tyler Brady MD Unavailable [phone] Vinod López DO Primary Care Provider [phone] Encounter Details Date Type Department Care Team (Late st Contact Info) Description 10/13/2018 [place] Message [facility] at [facility], [facility] [address] [place] [address] Tyler Brady MD [facility]. [facility] [address] [place], [place] [id number] Medication Questions Social History Tobacco Use Types [...] Sex Assigned at Female 11/05/2018 3:21 PM CHEMISTRY TECHNICIAN Legal Sex Female 6:14 PM CDT Gender Identity Female 11/05/2018 3:21 PM CHEMISTRY TECHNICIAN Sexual Orientation Not on file Occupation Industry Job Start Date Job End Date Not on file Not on file Not on file Not on file documented as of this encounter Plan of Treatment Not on file documented as of this encounter Visit Diagnoses Not on filedocumented in this encounter Care Teams Sales Representative Sales Manager Relationship Specialty Start Date End Date Akil Chan MD PCP - General INTERNAL MEDICINE 09/01/18 03/15/19 Vinod López DO [address] [employer] [facility] [address] [place] [address] PCP - General INTERNAL MEDICINE 03/16/19 Tyler Brady MD [facility] [address] [place] [address] [employer] CARDIOVASCULAR DISEASE 09/01/18 documented as of this encounter
--- OUTSIDE RECORDS SUMMARY | 2025-08-13 07:56 | XMS_ITS | Encounter Summary ---
Author Organization [facility] Address [address] [place] [address] Care Team Providers Care Head Of Integrated Media Name Role Phone Akil Chan MD Primary Care Provider [phone] Tyler Brady MD Unavailable [phone] Vinod López DO Primary Care Provider [phone] Encounter Details Date Type Department Care Team (Late st Contact Info) Description 12/18/2018 [place] [employer] Message Enc [facility] Medical Group Multispecialty Care - [address], [address] [place] [address] Kal Delcid MD [address] [place] [address] [address] [place] [address] Follow Up/Update Social History Tobacco [...] Sex Assigned at Female 11/05/2018 3:21 PM SANDSTONE SPLITTER Legal Sex Female 6:14 PM CDT Gender Identity Female 11/05/2018 3:21 PM SANDSTONE SPLITTER Sexual Orientation Not on file Occupation Industry Job Start Date Job End Date Not on file Not on file Not on file Not on file documented as of this encounter Plan of Treatment Not on file documented as of this encounter Visit Diagnoses Not on filedocumented in this encounter Care Teams Head Of Integrated Media Relationship Specialty Start Date End Date Akil Chan MD PCP - General INTERNAL MEDICINE 09/01/18 03/15/19 Vinod López DO [address] [address] PCP - General INTERNAL MEDICINE 03/16/19 Tyler Brady MD [facility] [address] [place] [address] [place] Bag Machine Operator CARDIOVASCULAR DISEASE 09/01/18 documented as of this encounter
--- OUTSIDE RECORDS SUMMARY | 2025-08-13 07:56 | XMS_ITS | Encounter Summary ---
Author Organization [facility] Address [address] [place] [address] Care Team Providers Care Learning Developer Name Role Phone Akil Chan MD Primary Care Provider [phone] Tyler Brady MD Unavailable [phone] Vinod López DO Primary Care Provider [phone] Encounter Details Date Type Department Care Team (Late st Contact Info) Description 10/13/2018 [employer] Message [facility] at [facility], [facility] [address] [place] [address] Tyler Brady MD [facility]. [facility] [address] [place], [place] [id number] Medication Questions Social History Tobacco Use Types [...] Sex Assigned at Female 11/05/2018 3:21 PM TERRAZZO MECHANIC Legal Sex Female 6:14 PM CDT Gender Identity Female 11/05/2018 3:21 PM TERRAZZO MECHANIC Sexual Orientation Not on file Occupation Industry Job Start Date Job End Date Not on file Not on file Not on file Not on file documented as of this encounter Plan of Treatment Not on file documented as of this encounter Visit Diagnoses Not on filedocumented in this encounter Care Teams Learning Developer Relationship Specialty Start Date End Date Akil Chan MD PCP - General INTERNAL MEDICINE 09/01/18 03/15/19 Vinod López DO [address] [employer] [facility] [address] [place] [address] PCP - General INTERNAL MEDICINE 03/16/19 Tyler Brady MD [facility] [address] [place] [address] [place] Loss Prevention Consultant CARDIOVASCULAR DISEASE 09/01/18 documented as of this encounter
--- OUTSIDE RECORDS SUMMARY | 2025-08-13 07:56 | XMS_ITS | Clinical Summary ---
Author Organization [facility] Address [address] [place] [address] Care Team Providers Care Smart Grid Engineer Name Role Phone Tyler Brady MD Unavailable [phone] Vinod López DO Primary Care Provider [phone] Allergies Active Allergy Reactions Criticality Noted Date [...] 2 (two) times a day. 8 Active [place] 3 1000 MG Cap Take 1 tablet [...] sotalol therapy 019 PAF (paroxysmal atrial fibrillation) ([facility]) 11/05/2018 Mitral regurgitation 09/02/2018 Diabetes ([facility]) 09/02/2018 Class 3 severe obesity due t o excess calories without serious comorbidity with body mass index (BMI) of 45.0 to 49.9 in adult 09/02/2018 GERD (gastroesophageal reflux disease) 8 A-fib ([facility]) Essential hypertension Family History Medical History Relation Comments [place] Father Relation Status Comments Father (Age 71) [...] Sex Assigned at Female 11/05/2018 3:21 PM FERN GATHERER Legal Sex Female 6:14 PM CDT Gender Identity Female 11/05/2018 3:21 PM FERN GATHERER Sexual Orientation Not on file Occupation Industry [...] this topic Medical Devices Implanted Type Area Loan Secretary Device Identifier Shelf Expiration Date Model / Serial / Lot Right Atrial Lead-03/17/2019 Implanted:Qty: 1 on 03/17/2019 by Tyler Brady MD Lead Implant Heart [facility] 01/01/20228TC-4 6 / [id number] / Right Ventricular Lead-03/17/2019 Implanted:Qty: 1 on 03/17/2019 by Tyler Brady MD Lead Implant Heart [facility] 02/01/20228TC-5 2 / [id number] / Sj Pacemaker-03/17 Implanted:Qty: 1 on 03/17/2019 by Tyler Brady MD Pacemaker Left: Chest [facility] 09/03/2020 [id number] / [id number] / Procedures Procedure Name Priority Date/Time Associated Diagnosis Comments OCCULT BLOOD, FECES STAT 10/25/2018 9 :14 AM FERN GATHERER from Last 3 Months or Most Recently Relevant to Health Maintenance Results * OCCULT BLOOD, FECES (10/25/2018 9:14 AM FERN GATHERER) OCCULT BLOOD FECAL NEGATIVE NEGATIVE 10/25/2018 9:[address] [facility] STOOL SPECIMEN / Unknown 10/25/2018 9:14 AM FERN GATHERER Delbert Chowdary MD BODY FLUIDS AND STOOLS ORDERABLE S Final Result [facility] [address] [place] [address], [place] [phone] from Last 3 Months or Most Recently Relevant to Health Maintenance Insurance MEDICARE [facility] MEDICARE [employer] Advance Directives Documents on File Type Date Recorded Patient Chucking And Boring Machine Operator Expl anation Advance Directives and Living Will 03/18/2019 7:44 AM Signed 11-30-13[facility] * Full Code (Latest Code Status on File) Date Activated Date Inactivated Comments 03/18/2019 2:01 AM 03/18/2019 2:52 PM * Full Code Date Activated Date Inactivated Comments 11/05/2018 2:25 PM 11/06/2018 5:57 PM * Full Code Date Activated Date Inactivated Comments 09/18/2018 1:31 PM 09/18/2018 4:45 PM Care Teams Smart Grid Engineer Relationship Specialty Start Date End Date Vinod López DO [address] [place] [address] PCP - General INTERNAL MEDICINE 03/16/19 Tyler Brady MD [facility] [address] [place] [address] [place] Tmd Teacher CARDIOVASCULAR DISEASE 09/01/18
--- OUTSIDE RECORDS SUMMARY | 2025-08-13 07:56 | XMS_ITS | Encounter Summary ---
Author Organization [facility] Address [address] [place] [address] Care Team Providers Care Buckle Sewer Machine Name Role Phone Akil Chan MD Primary Care Provider [phone] Tyler Brady MD Unavailable [phone] Vinod López DO Primary Care Provider [phone] Encounter Details Date Type Department Care Team (Late st Contact Info) Description 03/05/2019 [employer] Message Enc [facility] at [facility], [facility] [address] [place] [address] Tyler Brady MD [facility]. [facility] [address] [place], [place] [id number] Medication Questions Social History Tobacco Use Types [...] Sex Assigned at Female 11/05/2018 3:21 PM PUMP STATION OPERATOR Legal Sex Female 6:14 PM CDT Gender Identity Female 11/05/2018 3:21 PM PUMP STATION OPERATOR Sexual Orientation Not on file Occupation Industry Job Start Date Job End Date Not on file Not on file Not on file Not on file documented as of this encounter Plan of Treatment Not on file documented as of this encounter Visit Diagnoses Not on filedocumented in this encounter Care Teams Buckle Sewer Machine Relationship Specialty Start Date End Date Akil Chan MD PCP - General INTERNAL MEDICINE 09/01/18 03/15/19 Vinod López DO [address] [employer] [facility] [address] [place] [address] PCP - General INTERNAL MEDICINE 03/16/19 Tyler Brady MD [place] [address] [place] [address] [place] Delivery Analyst CARDIOVASCULAR DISEASE 09/01/18 documented as of this encounter
--- OUTSIDE RECORDS SUMMARY | 2025-08-13 07:56 | XMS_ITS | Encounter Summary ---
Author Organization [facility] Healthcare Address [address] [place] [address] Care Team Providers Care Mine Surveyor Name Role Phone Thanh Alexandre MD, Flash Unavailable [phone] Roger Hutchins DO Primary Care Provider [phone] Encounter Details Date Type Department Care Team (Late st Contact Info) Description 07/02/2025 Results Follow-Up [facility] Medical Group Cardiology [address] [facility] [address] [place] [address] Luzmaria Hernadez NP [address] [place], [place] [id number] Basic metabolic panel Social History Tobacco Use Types Packs/Day Years Used Date Smoking Tobacco: Never Smokeless Tobacco: Never Alcohol Use Standard Drinks/Week Comments Yes 0 (1 standard drink = 0.6 oz pure alcohol) Very rarely - wine holiday meal Comments Unknown Sex and Gender Information Value Date Recorded Sex Assigned at Not on file Legal Sex Female 3:20 AM GROCERY CASHIER Gender Identity Female 11/18/2019 4:40 AM GROCERY CASHIER Sexual Orientation Straight 11/18/2019 4: 40 AM GROCERY CASHIER documented as of this encounter Plan of Treatment Not on file documented as of this encounter Visit Diagnoses Not on filedocumented in this encounter Care Teams Mine Surveyor Relationship Specialty Start Date End Date Roger Hutchins DO [address] [place] [address] PCP - General Internal Medicine 06/08/25 Flash Law Jr., MD Medical Oncologist/Medical Corps Officer Medical Oncology 12/14/19 documented as of this encounter
--- OUTSIDE RECORDS SUMMARY | 2025-08-13 07:56 | XMS_ITS | Encounter Summary ---
Author Organization [facility] Healthcare Address [address] [place] [address] Care Team Providers Care Computer Publisher Name Role Phone Vinod López DO Primary Care Provider [phone] Thanh Alexandre MD, Flash Unavailable [phone] Roger Hutchins DO Primary Care Provider [phone] Encounter Details Date Type Department Care Team (Late st Contact Info) Description 05/29/2025 Orders Only [facility] Health Information Management [address] [place] [address] Scanning, Provider Social History Tobacco Use Types Packs/Day Years Used Date Smoking Tobacco: Never Smokeless Tobacco: Never Alcohol Use Standard Drinks/Week Comments Yes 0 (1 standard drink = 0.6 oz pure alcohol) Very rarely - wine holiday meal Comments Unknown Sex and Gender Information Value Date Recorded Sex Assigned at Not on file Legal Sex Female 3:20 AM BLACK PICKLER Gender Identity Female 11/18/2019 4:40 AM BLACK PICKLER Sexual Orientation Straight 11/18/2019 4: 40 AM BLACK PICKLER documented as of this encounter Plan of [...] on filedocumented in this encounter Care Teams Computer Publisher Relationship Specialty Start Date End Date Vinod López DO PCP - General Internal Medicine 11/11/19 06/07/25 Roger Hutchins DO [address] [facility] [address] PCP - General Internal Medicine 06/08/25 Flash Law Jr., MD Medical Oncologist/Rope Silica Machine Operator Medical Oncology 12/14/19 documented as of this encounter
--- OUTSIDE RECORDS SUMMARY | 2025-08-13 07:56 | XMS_ITS | Encounter Summary ---
Author Organization [facility] Address [address] [place] [address] Care Team Providers Care Dowel Sticker Operator Name Role Phone Akil Chan MD Primary Care Provider [phone] Tyler Brady MD Unavailable [phone] Vinod López DO Primary Care Provider [phone] Encounter Details Date Type Department Care Team (Late st Contact Info) Description 02/24/2019 Power Liens Message Enc [facility] at [facility], [facility] [address] [place] [address] Tyler Brady MD [facility]. 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 Legal Sex Female 6:14 PM CDT Gender Identity Female 11/05/2018 3:21 PM FARMER TREE FRUIT AND NUT CROPS Sexual Orientation Not on file Occupation Industry Job Start Date Job End Date Not on file Not on file Not on file Not on file documented as of this encounter Plan of Treatment Not on file documented as of this encounter Visit Diagnoses Not on filedocumented in this encounter Care Teams Dowel Sticker Operator Relationship Specialty Start Date End Date Akil Chan MD PCP - General INTERNAL MEDICINE 09/01/18 03/15/19 Vinod López DO [address] [facility] [address] [place] [address] PCP - General INTERNAL MEDICINE 03/16/19 Tyler Brady MD [facility] [address] [place] [address] [place] Vendor Relationship Manager CARDIOVASCULAR DISEASE 09/01/18 documented as of this encounter
--- OUTSIDE RECORDS SUMMARY | 2025-08-13 07:56 | XMS_ITS | Encounter Summary ---
Author Organization [facility] Address [address] [facility] [address] [place] [address] Care Team Providers Care Rubber Worker Name Role Phone Akil Chan MD Primary Care Provider [phone] Vinod López DO Primary Care Provider [phone] Thanh Alexandre MD, Flash Unavailable [phone] Roger Hutchins DO Primary Care Provider [phone] Encounter Details Date Type Department Care Team (Late st Contact Info) Description 02/12/2017 Orders Only [facility] ProviderLsia MD [address] [place] [address] Social History Tobacco Use Types Packs/Day Years Used Date Smoking Tobacco: Never Alcohol Use Standard Drinks/Week Comments Yes 0 (1 standard drink = 0.6 oz pur e alcohol) Comments Unknown Sex and Gender Information Value Date Recorded Sex Assigned at Not on file Legal Sex Female 3:20 AM WATER POLLUTION SCIENTIST Gender Identity Female 11/18/2019 4:40 AM WATER POLLUTION SCIENTIST Sexual Orientation Straight 11/18/2019 4: 40 AM WATER POLLUTION SCIENTIST documented as of this encounter Plan of [...] filedocumented in this encounter Care Teams Rubber Worker Relationship Specialty Start Date End Date Akil Chan MD PCP - General 02/05/17 11/10/19 Vinod López DO PCP - General Internal Medicine 11/11/19 06/07/25 Roger Hutchnis DO [address] [place], [place] [address] PCP - General Internal Medicine 06/08/25 Flash Law Jr., MD Medical Oncologist/Template Layout Worker Medical Oncology 12/14/19 documented as of this encounter
--- OUTSIDE RECORDS SUMMARY | 2025-08-13 07:56 | XMS_ITS | Encounter Summary ---
Author Organization [facility] Address [address] [place] [address] Care Team Providers Care Enrollment Counselor Name Role Phone Akil Chan MD Primary Care Provider [phone] Tyler Brady MD Unavailable [phone] Vinod López DO Primary Care Provider [phone] Reason for Visit * Reason Onset Date Comments Concerns 10/22/2018 Encounter Details Date Type Department Care Team (Late st Contact Info) Description 10/22/2018 Grey Area Message [facility] at [facility], [facility] [address] [place] [address] Tyler Brady MD [facility] [address] [place] [address] Follow Up/Update Social History Tobacco [...] Assigned at Female 11/05/2018 3:21 PM SUPERVISOR DEHYDROGENATION Legal Sex Female 6:14 PM CDT Gender Identity Female 11/05/2018 3:21 PM SUPERVISOR DEHYDROGENATION Sexual Orientation Not on file Occupation Industry [...] had no further questions. Message to the unit secretary. RVISOR DEHYDROGENATION * Tyler Brady MD - 10/22/2018 9:11 [...] when its convenient to her. Andrés Avalos RVISOR DEHYDROGENATION * Jimena Chapman RN - 10/22/2018 8:54 [...] the patient. Message sent to Dr. Brady. RVISOR DEHYDROGENATION documented in this encounter Plan of Treatment Not on file documented as of this encounter Visit Diagnoses Not on filedocumented in this encounter Care Teams Enrollment Counselor Relationship Specialty Start Date End Date Akil Chan MD PCP - General INTERNAL MEDICINE 09/01/18 03/15/19 Vinod López DO 0 [facility] [address] [place], [place] [id number] PCP - General INTERNAL MEDICINE 03/16/19 Tyler Brady MD [facility]. [facility] [address] [place] [address] [place] Nurse Ldr CARDIOVASCULAR DISEASE 09/01/18 documented as of this encounter
--- NOTE | 2025-08-13 13:29 | WPDSIXMINUTE ---
Six Minute Walk Procedure Procedure Performed Pulmonary Stress Test (6 min walk) Six Minute Walk Six Minute Walk: This is a 6 minute walk test. The test was performed and interpreted in accordance with the 2014 ERS/ATS task force guidelines. Of note, patient used a wheeled walker. Findings: The patient's resting room air oxygen saturation measured by pulse oximetry was 99%, the heart rate was 75 bpm, and the modified Maria Del Rosario dyspnea score was 0. Patient ambulated for 305 meters and oxygen saturation remained 93 to 98%. At the end of the study the heart rate was 112 bpm and the modified Maria Del Rosario dyspnea score was 1. The patient did not qualify for supplemental oxygen at rest or with ambulation. There are no prior studies for comparison.
--- NOTE | 2025-08-13 13:30 | WPDPFTINT ---
PFT Procedure Performed PFT Procedure Performed Spirometry with Pre/Post Bronchodilator Plethysmography (Lung Vol) Diffusing Cap (DLCO) Flow Vol Loop PFT Interpretation This is a pulmonary function test with pre and post-bronchodilator spirometry, plethysmography and diffusing capacity. The test was performed and results interpreted in accordance with the 2019 and 2005 ATS/ERS Task Force guidelines respectively using the Global Lung Function Initiative-2012 reference equations. Patient demonstrated good effort and cooperation. Reproducibility criteria were met. The quality of the pre bronchodilator spirometry maneuver was Grade A and post bronchodilator spirometry maneuver was Grade A. Findings: Spirometry: The contour the inspiratory and expiratory flow tracing are normal. The pre bronchodilator FVC is 2.13 L, 108% predicted. The pre bronchodilator FEV1 is 1.67 L, 110% predicted. The pre bronchodilator FEV1: FVC ratio 79%. The post bronchodilator FVC is 2.02 L, representing a 5% decrease. The post bronchodilator FEV1 is 1.73 L, representing a 3% increase. The post bronchodilator FEV1: FVC ratio is 86%. Plethysmography: The total lung capacity is 3.93 L, 97% predicted. The functional residual capacity is 2.51 L, 99% predicted. The residual volume is 1.63 L, 79% predicted. Diffusing capacity: The diffusing capacity unadjusted for hemoglobin and carboxyhemoglobin is 10.0, 55% predicted. The diffusing capacity adjusted for alveolar volume is 3.25, 76% predicted. In comparison to previous pulmonary function testing on 02/27/2019, the post bronchodilator FVC is unchanged from 2.35 L to 2.02 L. The post bronchodilator FEV1 is unchanged from 1.90 L to 1.73 L. The total lung capacity is unchanged from 4.54 L to 3.93 L. The functional residual capacity is unchanged from 2.74 L to 2.51 L. The residual volume is unchanged from 1.79 L to 1.63 L. The diffusing capacity unadjusted for hemoglobin and carboxyhemoglobin is decreased from 12.9 to 10.0. The diffusing capacity adjusted for alveolar volume is decreased from 3.96 to 3.25. Impression: The spirometry is normal without evidence of an obstructive abnormality. There is no significant improvement after inhaling a single dose of albuterol. The lung volumes are normal. The diffusing capacity unadjusted for hemoglobin and carboxyhemoglobin is moderately decreased and normalizes when adjusted for alveolar volume. In comparison to previous pulmonary function testing on 02/27/2019, there has been a greater than anticipated time dependent decrease in the diffusing capacity with no significant change in the FVC, FEV1, total lung capacity, functional residual capacity or residual volume. Clinical correlation is recommended.
== END 2025-08-13 07:51 | disposition home or self-care (01) ==
LOC: ANHPFT 07:53
PROVIDERS: Visit Provider Internal Medicine Critical Care Medicine
DX: R06.02 Shortness of breath (principal)
CPT/HCPCS: 94060; 94618; 94726; 94729

== ENCOUNTER 2025-09-19 09:28 | Emergency (ER) | payer MEDICARE, OTHER, SELFPAY ==
--- NOTE | 2025-09-19 09:35 | ED.SKABFB ---
HPI - Skin/Abscess/Foreign Bdy General Chief complaint: Eye Problems Stated complaint: c/o pink eye Source: patient Mode of arrival: ambulatory Limitations: no limitations History of Present Illness HPI narrative: Nikole is a 79 year old female patient presenting to the clinic today with c/o possible pink eye x1 day. She reports her eye was itching yesterday so she rubbed and now she has redness to in her right eye. Denies any visual changes or drainage coming from the eye. Denies any eye pain. Has not any treatment. Related Data Home Medications ?Medication ?Instructions ?Recorded ?Confirmed ?Last Taken ?Type rivaroxaban 20 mg tablet (Xarelto) 20 mg PO DAILY 10/14/19 09/19/25 05/28/25 History vitamins A,C,U-ykjf-xamzxo 4,296 1 cap PO BID 11/08/20 09/19/25 05/28/25 History mcg-226 mg-90 mg capsule (PreserVision AREDS) acetaminophen 650 mg 1,300 mg PO Q12H pain 05/05/22 09/19/25 05/16/25 History tablet,extended release ferrous sulfate 325 mg (65 mg 325 mg PO EVERY OTHER DAY 05/07/25 09/19/25 05/28/25 History iron) tablet (FeroSul) empagliflozin 10 mg tablet 10 mg PO DAILY 05/29/25 09/19/25 05/28/25 History (Jardiance) levothyroxine 112 mcg capsule 112 mcg PO DAILY 09/06/25 09/19/25 Unknown History cholecalciferol (vitamin D3) 1,250 09/19/25 Unknown History mcg (50,000 unit) capsule Allergies Allergy/AdvReac Type Severity Reaction Status Date / Time Sulfa (Sulfonamide Allergy Intermediate Rash Verified 09/19/25 09:49 Antibiotics) nitrofurantoin (From Allergy itching Verified 09/19/25 09:49 Macrobid) Review of Systems Review of Systems: Pertinent positives per HPI. Patient denies any fever, chills, rash, headache, visual changes, dizziness, cough, runny nose, sore throat, shortness of breath, chest pain, palpitations, nausea, vomiting, diarrhea, constipation, abdominal pain, or any urinary issues. [facility] Past Medical History Medical History Sarcoid History of sarcoidosis Pulmonary hypertension Paroxysmal atrial fibrillation Chronic anemia Diastolic heart failure Echocardiogram June 2024: Difficult study with LVH, EF of 50 55%, grade 1 diastolic dysfunction and moderate left atrial enlargement with mild pulmonary hypertension Other hyperlipidemia Restless leg syndrome Hx of arteriovenous malformation (AVM) Iron deficiency anemia CARLOS (obstructive sleep apnea) Intolerant to CPAP Post-menopausal Depression Colonoscopy planned Gastro-esophageal reflux Type 2 diabetes mellitus Hypothyroidism Essential hypertension Surgical History Surgical History Status post cataract extraction of both eyes with insertion of intraocular lens History of right shoulder replacement History of toe surgery History of arthroscopy of knee Family History Family History Mother Family history of lung cancer Family history of lung disease Father Family history of arthritis Family history of heart disease in male family member before age 55 Family history of cardiovascular disease Sibling Family history of malignant neoplasm of breast in first degree relative Carcinoma of colon Breast cancer Daughter Breast cancer Social History Social History Social History: Patient moved to [facility] March 2025. She is a lifelong nonsmoker and denies any history of alcohol use. Her and her raised 1 son and 4 daughters. 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 There is no relevant family history pertinent to the patient complaint. Exam Narrative: General: Well-developed, well nourished, in no apparent distress Head: Normocephalic, atraumatic Eyes: Pupils equally round and reactive to light bilaterally, EOM intact, left sclera and conjunctive clear, right conjunctiva clear, right sclera with subconjunctival hemorrhage to the medial eye-not crossing the iris/visual field, no discharge, lids normal Ears: TMs intact and clear, ear canals clear, no drainage, grossly hearing normal. Nose: Nares patent, no discharge, no inflammation, no sinus tenderness. Mouth: Oropharynx without lesions or masses, good dentition, MMM. Neck: Supple, trachea midline, no enlargement of anterior or posterior cervical nodes, no thyroid masses or goiter palpable. Cardio: Regular rate and rhythm, s1 and s2 normal, no murmur appreciated. Resp: Clear to auscultation bilaterally anteriorly and posteriorly, no rhonchi, rales, wheezing or rubs Course Course Emergency Course: Portions of this record may have been created with voice recognition software. Level of Care: Express Care Visit Vital Signs Vital signs: Vital Signs Temperature 36.4 C 09/19/25 09:58 Pulse Rate 68 09/19/25 09:58 Respiratory Rate 16 09/19/25 09:58 Blood Pressure 114/72 09/19/25 09:58 Pulse Oximetry 100 09/19/25 09:58 Oxygen Delivery Room Air 09/19/25 09:58 Temperature 36.4 C 09/19/25 09:58 Pulse Rate 68 09/19/25 09:58 Respiratory Rate 16 09/19/25 09:58 Blood Pressure 114/72 09/19/25 09:58 Pulse Oximetry 100 09/19/25 09:58 Oxygen Delivery Room Air 09/19/25 09:58 Vital signs reviewed MDM - Skin/Abscess/Foreign Bdy MDM Narrative Medical decision making narrative: At the time of visit patient is resting comfortably on the exam table. Patient appears to be nontoxic. C/o possible pink eye x1 day. She reports her eye was itching yesterday so she rubbed and now she has redness to in her right eye. Denies any visual changes or drainage coming from the eye. Denies any eye pain. Has not any treatment. Patient is taking blood thinner. On exam patient has right conjunctiva clear, right sclera with subconjunctival hemorrhage to the medial eye-not crossing the iris/visual field, Plan: I suspect the patient has right subconjunctival hemorrhage. Supportive measures were discussed with the patient and they voiced understanding discharge instructions and agrees to treatment plan. Return precautions reviewed Differential Diagnosis Differential diagnosis: Likely other (Conjunctivitis, subconjunctival hemorrhage, glaucoma, globe rupture,corneal abrasion) Discharge Plan Discharge Clinical Impression: Subconjunctival hemorrhage of right eye Patient Disposition: Home Condition: Stable Instructions: Antibiotic Form Additional Instructions: You have a subconjunctival hemorrhage. No treatment is needed at this time. Follow-up with your PCP as needed Patient Language: Greenlandic Prescriptions: No Action cholecalciferol (vitamin D3) 1,250 mcg (50,000 unit) capsule PreserVision AREDS 14,320-226-200 cydz-su-qbpm capsule 1 cap PO BID Xarelto 20 mg tablet 20 mg PO DAILY Rx Instructions: take each evening levothyroxine 112 mcg capsule 112 mcg PO DAILY bumetanide 2 mg tablet 1 mg PO BID Qty: 90 0RF ferrous sulfate [FeroSul] 325 mg (65 mg iron) tablet 325 mg PO EVERY OTHER DAY Jardiance 10 mg tablet 10 mg PO DAILY amiodarone [Pacerone] 200 mg Tablet 200 mg PO DAILY Qty: 30 0RF spironolactone 25 mg tablet 12.5 mg PO DAILY Qty: 30 0RF pramipexole 1 mg tablet 1 mg PO TID PRN (Reason: restless leg(s)) Qty: 270 1RF gabapentin 600 mg tablet 600 mg PO TID PRN (Reason: nerve pain) Qty: 270 1RF potassium chloride 20 mEq tablet extended release 40 meq PO BID Qty: 120 0RF acetaminophen 650 mg tablet extended release 1,300 mg PO Q12H metformin 500 mg tablet 500 mg PO BID Qty: 180 3RF fluoxetine [Prozac] 20 mg capsule 40 mg PO DAILY Qty: 180 1RF omeprazole 20 mg capsule,delayed release(DR/EC) 20 mg PO BID Qty: 180 3RF rosuvastatin [Crestor] 10 mg tablet 10 mg PO DAILY Qty: 90 1RF Follow-up/Referrals: Cuong,Roger Lyles DO [Primary Care Provider, Unknown] Time of Disposition: 10:05 Quality NIHSS Nursing Documentation ED NIHSS nursing documentation: reviewed/agree
[2025-09-19 09:58] VITALS: BP 114/72; PULSE 68; RESP 16; TEMP 36.4; O2SAT 100
== END 2025-09-19 10:11 | disposition home or self-care (01) ==
PROVIDERS: Emergency Provider Nurse Practitioner Family; PCP Internal Medicine
DX: H11.31 Conjunctival hemorrhage, right eye (principal); I11.0 Hypertensive heart disease with heart failure; I50.30 Unspecified diastolic (congestive) heart failure; E11.9 Type 2 diabetes mellitus without complications; Z79.84 Long term (current) use of oral hypoglycemic drugs; I48.0 Paroxysmal atrial fibrillation; I27.20 Pulmonary hypertension, unspecified; D86.9 Sarcoidosis, unspecified; D50.9 Iron deficiency anemia, unspecified; E78.49 Other hyperlipidemia; G25.81 Restless legs syndrome; G47.33 Obstructive sleep apnea (adult) (pediatric); K21.9 Gastro-esophageal reflux disease without esophagitis; E03.9 Hypothyroidism, unspecified; F32.A Depression, unspecified; Z96.1 Presence of intraocular lens; Z98.42 Cataract extraction status, left eye; Z98.41 Cataract extraction status, right eye; Z96.611 Presence of right artificial shoulder joint; Z79.01 Long term (current) use of anticoagulants
CPT/HCPCS: 99212; G0463

== ENCOUNTER 2025-10-05 10:52 | Outpatient (CLI) | payer MEDICARE, OTHER, SELFPAY ==
--- NOTE | ~2025-10-05 | XR_ITS ---
EXAMINATION: XR chest 2V, 10/05/2025 11:12 [facility] HISTORY: shortness of breath, CHF, SURGERY IN 1998 COMPARISON: No comparisons available. Technique: 2 views obtained. Findings: Mild pulmonary venous congestion. No pneumothorax. Mild cardiomegaly. Mediastinal and hilar contours are within normal limits. Right shoulder arthroplasty. Left pacemaker. Impression: Mild CHF Reviewed, dictated and finalized at location [facility] Impression: Mild CHF
--- OUTSIDE RECORDS SUMMARY | 2025-10-05 11:55 | XMS_ITS | Encounter Summary ---
Author Organization [facility] Address [address] [place] [address] Care Team Providers Care Desk Representative Name Role Phone Akil Chan MD Primary Care Provider [phone] Tyler Brady MD Unavailable [phone] Vinod López DO Primary Care Provider [phone] Encounter Details Date Type Department Care Team (Late st Contact Info) Description 11/03/2018 apprupt Message Enc [facility] at [facility], [facility] [address] [place] [address] Tyler Bardy MD [facility]. [facility] [address] [place] [address] Follow Up/Update Social History Tobacco [...] Assigned at Female 11/05/2018 3:21 PM PAPER PATTERN FOLDER Legal Sex Female 6:14 PM CDT Gender Identity Female 11/05/2018 3:21 PM PAPER PATTERN FOLDER Sexual Orientation Not on file Occupation Industry Job Start Date Job End Date Not on file Not on file Not on file Not on file documented as of this encounter Plan of Treatment Not on file documented as of this encounter Visit Diagnoses Not on filedocumented in this encounter Care Teams Desk Representative Relationship Specialty Start Date End Date Akil Chan MD PCP - General INTERNAL MEDICINE 09/01/18 03/15/19 Vinod López DO [address] [facility] [address] [place] [address] PCP - General INTERNAL MEDICINE 03/16/19 Tyler Brady MD [facility] [address] [place] [address] [employer] Book Board Attendant CARDIOVASCULAR DISEASE 09/01/18 documented as of this encounter
--- OUTSIDE RECORDS SUMMARY | 2025-10-05 11:55 | XMS_ITS | Encounter Summary ---
Author Organization [facility] Address [address] [place] [address] Care Team Providers Care Job Spotter Name Role Phone kAil Chan MD Primary Care Provider Tyler Brady MD Unavailable [phone] Vinod López DO Primary Care Provider [phone] Encounter Details Date Type Department Care Team (Late st Contact Info) Description 03/10/2019 MasteryConnect Message Enc [facility] at [facility], [facility] [address] [place] [address] Tyler Brady MD [facility]. [facility] [address] [place], [place] [id number] Medication Questions Social History Tobacco Use Types [...] Sex Assigned at Female 11/05/2018 3:21 PM DYE PENETRANT TESTING TECHNICIAN Legal Sex Female 6:14 PM CDT Gender Identity Female 11/05/2018 3:21 PM DYE PENETRANT TESTING TECHNICIAN Sexual Orientation Not on file Occupation Industry Job Start Date Job End Date Not on file Not on file Not on file Not on file documented as of this encounter Plan of Treatment Not on file documented as of this encounter Visit Diagnoses Not on filedocumented in this encounter Care Teams Job Spotter Relationship Specialty Start Date End Date Akil Chan MD PCP - General INTERNAL MEDICINE 09/01/18 03/15/19 Vinod López DO [address] [employer] [facility] [address] [place] [address] PCP - General INTERNAL MEDICINE 03/16/19 Tyler Brady MD [facility] [address] [place] [address] [employer] Medical Planner CARDIOVASCULAR DISEASE 09/01/18 documented as of this encounter
--- OUTSIDE RECORDS SUMMARY | 2025-10-05 11:55 | XMS_ITS | Encounter Summary ---
Author Organization [facility] Address [address] [place] [address] Care Team Providers Care Retail And Restaurant Name Role Phone Akil Chan MD Primary Care Provider [phone] Tyler Brady MD Unavailable [phone] Vinod López DO Primary Care Provider [phone] Encounter Details Date Type Department Care Team (Late st Contact Info) Description 02/16/2019 aitainment Message Enc [facility] at [facility], [facility] [address] [place] [address] Tyler Brady MD [facility]. [facility] [address] [place], [place] [id number] Follow Up/Update Social History Tobacco Use Types [...] Assigned at Female 11/05/2018 3:21 PM SALES AGENT BUSINESS SERVICES Legal Sex Female 6:14 PM CDT Gender Identity Female 11/05/2018 3:21 PM SALES AGENT BUSINESS SERVICES Sexual Orientation Not on file Occupation Industry Job Start Date Job End Date Not on file Not on file Not on file Not on file documented as of this encounter Plan of Treatment Not on file documented as of this encounter Visit Diagnoses Not on filedocumented in this encounter Care Teams Retail And Restaurant Relationship Specialty Start Date End Date Akil Chan MD PCP - General INTERNAL MEDICINE 09/01/18 03/15/19 Vinod López DO [address] [facility] [address] [place] [address] PCP - General INTERNAL MEDICINE 03/16/19 Tyler Brady MD [facility] [address] [place] [address] [place] Beater Room Helper CARDIOVASCULAR DISEASE 09/01/18 documented as of this encounter
--- OUTSIDE RECORDS SUMMARY | 2025-10-05 11:55 | XMS_ITS | Encounter Summary ---
Author Organization [facility] Address [address] [facility] [address] [place] [address] Care Team Providers Care Fondant Puff Maker Name Role Phone Akil Chan MD Primary Care Provider [phone] Vinod López DO Primary Care Provider [phone] Thanh Alexandre MD, Flash Unavailable [phone] Roger Hutchins DO Primary Care Provider [phone] Encounter Details Date Type Department Care Team (Late st Contact Info) Description 02/12/2017 Orders Only [facility] ProviderLisa MD [address] [place] [address] Social History Tobacco Use Types Packs/Day Years Used Date Smoking Tobacco: Never Alcohol Use Standard Drinks/Week Comments Yes 0 (1 standard drink = 0.6 oz pur e alcohol) Comments Unknown Sex and Gender Information Value Date Recorded Sex Assigned at Not on file Legal Sex Female 3:20 AM KILN DOOR BUILDER Gender Identity Female 11/18/2019 4:40 AM KILN DOOR BUILDER Sexual Orientation Straight 11/18/2019 4: 40 AM KILN DOOR BUILDER documented as of this encounter Plan of [...] filedocumented in this encounter Care Teams Fondant Puff Maker Relationship Specialty Start Date End Date Akil Chan MD PCP - General 02/05/17 11/10/19 Vinod López DO PCP - General Internal Medicine 11/11/19 06/07/25 Roger Hutchins DO [address] [place], [place] [address] PCP - General Internal Medicine 06/08/25 Flash Law Jr., MD Medical Oncologist/Superintendent Medical Oncology 12/14/19 documented as of this encounter
--- OUTSIDE RECORDS SUMMARY | 2025-10-05 11:55 | XMS_ITS | Encounter Summary ---
Author Organization [facility] Address [address] [place] [address] Care Team Providers Care Vehicle Body Sander Name Role Phone Akil Chan MD Primary Care Provider [phone] Tyler Brady MD Unavailable [phone] Vinod López DO Primary Care Provider [phone] Encounter Details Date Type Department Care Team (Late st Contact Info) Description 09/05/2018 MethylGene Message Enc [facility] at [facility], [facility] [address] [place] [address] [facility]. [facility] [address] [place], [place] [id number] Medication Questions Social History Tobacco Use Types [...] Sex Assigned at Female 11/05/2018 3:21 PM GREENHOUSE SUPERINTENDENT Legal Sex Female 6:14 PM CDT Gender Identity Female 11/05/2018 3:21 PM GREENHOUSE SUPERINTENDENT Sexual Orientation Not on file documented as of this encounter Plan of Treatment Not on file documented as of this encounter Visit Diagnoses Not on filedocumented in this encounter Care Teams Vehicle Body Sander Relationship Specialty Start Date End Date Akil Chan MD PCP - General INTERNAL MEDICINE 09/01/18 03/15/19 Vinod López DO [address] [place] [address] [address] [place], [place] [id number] PCP - General INTERNAL MEDICINE 03/16/19 Tyler Brady MD [facility] [address] [place] [address] [place] Manager Advanced CARDIOVASCULAR DISEASE 09/01/18 documented as of this encounter
--- OUTSIDE RECORDS SUMMARY | 2025-10-05 11:55 | XMS_ITS | Encounter Summary ---
Author Organization [facility] Address [address] [place] [address] Care Team Providers Care Technical Architect Name Role Phone Akil Chan MD Primary Care Provider [phone] Tyler Brady MD Unavailable [phone] Vinod López DO Primary Care Provider [phone] Encounter Details Date Type Department Care Team (Late st Contact Info) Description 02/20/2019 [employer] Message Enc [facility] at [facility], [facility] [address] [place] [address] Tyler Brady MD [facility]. [facility] [address] [place] [address] Other Social History Tobacco Use [...] Sex Assigned at Female 11/05/2018 3:21 PM INTERFACE DEVELOPER Legal Sex Female 6:14 PM CDT Gender Identity Female 11/05/2018 3:21 PM INTERFACE DEVELOPER Sexual Orientation Not on file Occupation Industry Job Start Date Job End Date Not on file Not on file Not on file Not on file documented as of this encounter Progress Notes * Margarita Mittal RN - 02/20/2019 10:13 AM CDT Phoned pt, as requested, 6 silicone strips mailed to her address ([facility]). Thank you, LP * Jimena Chapman RN - 02/20/2019 9:10 AM CDT See note. documented in this encounter Plan of Treatment Not on file documented as of this encounter Visit Diagnoses Not on filedocumented in this encounter Care Teams Technical Architect Relationship Specialty Start Date End Date Akil Chan MD PCP - General INTERNAL MEDICINE 09/01/18 03/15/19 Vinod López DO [address] [place] [address] PCP - General INTERNAL MEDICINE 03/16/19 Tyler Brady MD [facility]. [facility] [address] [place] [address] [place] Extension Agent CARDIOVASCULAR DISEASE 09/01/18 documented as of this encounter
--- OUTSIDE RECORDS SUMMARY | 2025-10-05 11:55 | XMS_ITS | Encounter Summary ---
Author Organization [facility] Address [address] [place] [address] Care Team Providers Care Machine Molder Name Role Phone Akil Chan MD Primary Care Provider [phone] Tyler Brady MD Unavailable [phone] Vinod López DO Primary Care Provider [phone] Encounter Details Date Type Department Care Team (Late st Contact Info) Description 12/01/2018 Manifest Digital Message Enc [facility] at [facility], [facility] [address] [place] [address] Tyler Brady MD [facility]. [facility] [address] [place], [place] [id number] Test Results Social History Tobacco Use Types [...] Sex Assigned at Female 11/05/2018 3:21 PM MULLING MACHINE OPERATOR Legal Sex Female 6:14 PM CDT Gender Identity Female 11/05/2018 3:21 PM MULLING MACHINE OPERATOR Sexual Orientation Not on file Occupation Industry Job Start Date Job End Date Not on file Not on file Not on file Not on file documented as of this encounter Progress Notes * Jimena Chapman RN - 12/01/2018 10:49 AM CST See patient record request - thank you. ING MACHINE OPERATOR documented in this encounter Plan of Treatment Not on file documented as of this encounter Visit Diagnoses Not on filedocumented in this encounter Care Teams Machine Molder Relationship Specialty Start Date End Date Akil Chan MD PCP - General INTERNAL MEDICINE 09/01/18 03/15/19 Vinod López DO [address] [place], [place] [address] [id number] PCP - General INTERNAL MEDICINE 03/16/19 Tyler Brady MD [facility] [address] [place] [address] [place] Trolley Operator CARDIOVASCULAR DISEASE 09/01/18 documented as of this encounter
--- OUTSIDE RECORDS SUMMARY | 2025-10-05 11:55 | XMS_ITS | Encounter Summary ---
Author Organization [facility] Address [address] [place] [address] Care Team Providers Care Anesthesiology Resident Name Role Phone Akil Chan MD Primary Care Provider [phone] Tyler Brady MD Unavailable [phone] Vinod López DO Primary Care Provider [phone] Encounter Details Date Type Department Care Team (Late st Contact Info) Description 11/22/2018 AmSafe Message Enc [facility] at [facility], [facility] [address] [place] [address] Tyler Brady MD [facility]. [facility] [address] [place] [address] RE: Medication Questions Social History [...] Sex Assigned at Female 11/05/2018 3:21 PM GAMING SURVEILLANCE OBSERVER Legal Sex Female 6:14 PM CDT Gender Identity Female 11/05/2018 3:21 PM GAMING SURVEILLANCE OBSERVER Sexual Orientation Not on file Occupation Industry Job Start Date Job End Date Not on file Not on file Not on file Not on file documented as of this encounter Plan of Treatment Not on file documented as of this encounter Visit Diagnoses Not on filedocumented in this encounter Care Teams Anesthesiology Resident Relationship Specialty Start Date End Date Akil Chan MD PCP - General INTERNAL MEDICINE 09/01/18 03/15/19 Vinod López DO [facility] [address] [place] [address] PCP - General INTERNAL MEDICINE 03/16/19 Tyler Brady MD [facility] [address] [place] [address] [place] Petrologist CARDIOVASCULAR DISEASE 09/01/18 documented as of this encounter
--- OUTSIDE RECORDS SUMMARY | 2025-10-05 11:55 | XMS_ITS | Encounter Summary ---
Author Organization [facility] Address [address] [place] [address] Care Team Providers Care Timber Trimmer Name Role Phone Akil Chan MD Primary Care Provider [phone] Tyler Brady MD Unavailable [phone] Vinod López DO Primary Care Provider [phone] Encounter Details Date Type Department Care Team (Late st Contact Info) Description 02/02/2019 Zenph Message Enc [facility] at [facility], [facility] [address] [place] [address] Tyler Brday MD [facility]. [facility] [address] [place] [address] Follow Up/Update Social History Tobacco [...] Sex Assigned at Female 11/05/2018 3:21 PM ENVIRONMENTAL DIRECTOR Legal Sex Female 6:14 PM CDT Gender Identity Female 11/05/2018 3:21 PM ENVIRONMENTAL DIRECTOR Sexual Orientation Not on file Occupation [...] had no further questions. Message to the warp clamper. * Tyler Brady MD - 02/03/2019 9:14 [...] fibrillation documented in this encounter Care Teams Timber Trimmer Relationship Specialty Start Date End Date Akil Chan MD PCP - General INTERNAL MEDICINE 09/01/18 03/15/19 Vinod López DO [address] [place] [address] [address] [place], [place] [id number] PCP - General INTERNAL MEDICINE 03/16/19 Tyler Brady MD [facility] [address] [place] [address] [place] Cut In Worker CARDIOVASCULAR DISEASE 09/01/18 documented as of this encounter
--- OUTSIDE RECORDS SUMMARY | 2025-10-05 11:55 | XMS_ITS | Encounter Summary ---
Author Organization [facility] Address [address] [place] [address] Care Team Providers Care Raw Hide Trimmer Name Role Phone Akil Chan MD Primary Care Provider [phone] Tyler Brady MD Unavailable [phone] Vinod López DO Primary Care Provider [phone] Encounter Details Date Type Department Care Team (Late st Contact Info) Description 02/16/2019 Zooomr Message Enc [facility] at [facility], [facility] [address] [place] [address] Tyler Brady MD [facility]. [facility] [address] [place], [place] [id number] Question Social History Tobacco Use Types Packs/Day [...] Sex Assigned at Female 11/05/2018 3:21 PM NURSE NAVIGATOR Legal Sex Female 6:14 PM CDT Gender Identity Female 11/05/2018 3:21 PM NURSE NAVIGATOR Sexual Orientation Not on file Occupation Industry Job Start Date Job End Date Not on file Not on file Not on file Not on file documented as of this encounter Plan of Treatment Not on file documented as of this encounter Visit Diagnoses Not on filedocumented in this encounter Care Teams Raw Hide Trimmer Relationship Specialty Start Date End Date Akil Chan MD PCP - General INTERNAL MEDICINE 09/01/18 03/15/19 Vinod López DO [address] [facility] [address] [place] [address] PCP - General INTERNAL MEDICINE 03/16/19 Tyler Brady MD [facility] [address] [place] [address] [place] Medical Billing Associate CARDIOVASCULAR DISEASE 09/01/18 documented as of this encounter
--- OUTSIDE RECORDS SUMMARY | 2025-10-05 11:55 | XMS_ITS | Clinical Summary ---
Author Organization [facility] Address [address] [place] [address] Care Team Providers Care Electronic Resources Librarian Name Role Phone Tyler Brady MD Unavailable [phone] Vinod López DO Primary Care Provider [phone] Allergies Active Allergy Reactions Criticality Noted Date [...] 2 (two) times a day. 8 Active [place] 3 1000 MG Cap Take 1 tablet [...] sotalol therapy 019 PAF (paroxysmal atrial fibrillation) 11/05/2018 Mitral regurgitation 09/02/2018 Diabetes 09/02/2018 Class 3 severe obesity due t o excess calories without serious comorbidity with body mass index (BMI) of 45.0 to 49.9 in adult 09/02/2018 GERD (gastroesophageal reflux disease) 8 A-fib Essential hypertension Family History Medical History Relation Comments [place] Father Relation Status Comments Father (Age 71) [...] Sex Assigned at Female 11/05/2018 3:21 PM FAST FOOD CASHIER Legal Sex Female 6:14 PM CDT Gender Identity Female 11/05/2018 3:21 PM FAST FOOD CASHIER Sexual Orientation Not on file Occupation Industry [...] Panel 1945 Diabetes: Retinopathy Eye Exam 1963 DTaP, Tdap and Td Vaccines (1 - Tdap) 1964 Pneumococcal Vaccine: 50+ Years (1 of 2 - PCV) 1964 Zoster Vaccines (1 of 2) 1995 Annual Medicare Wellness Visit 2010 Dexa Scan (General) 2010 RSV Immunization or 60+ Years (1 - 1-dose 75+ series) 2020 COVID-19 Vaccine ( - 2024- season) 2025 Influenza Adult (#1) 2025 08/25/2019, 07/15/2018, 08/18/2017, Additional history exists Colorectal Cancer Screening FIT/FOBT (1 Year) Discontinued 10/25/2018 Hepatitis A Vaccines Aged Out No long er eligible based on patient's age to complete this topic Meningococcal B Vaccine Aged Out No l onger eligible based on patient's age to complete this topic Meningococcal Vaccine Aged Out No mary alvin eligible based on patient's age to complete this topic RSV Immunizations Under 20 Months Aged Out No longer eligible based on patient's age to complete this topic Medical Devices Implanted Type Area Clinical Rn Liaison Device Identifier Shelf Expiration Date Model / Serial / Lot Right Atrial Lead-03/17/2019 Implanted:Qty: 1 on 03/17/2019 by Tyler Brady MD Lead Implant Heart [facility] 01/01/20228TC-4 6 / [id number] / Right Ventricular Lead-03/17/2019 Implanted:Qty: 1 on 03/17/2019 by Tyler Brady MD Lead Implant Heart [facility] 02/01/20222087TC-5 2 / [id number] / Sj Pacemaker-03/17 Implanted:Qty: 1 on 03/17/2019 by Tyler Brady MD Pacemaker Left: Chest [facility] 09/03/2020 [id number] / [id number] / Procedures Procedure Name Priority Date/Time Associated Diagnosis Comments OCCULT BLOOD, FECES STAT 10/25/2018 9 :14 AM FAST FOOD CASHIER from Last 3 Months or Most Recently Relevant to Health Maintenance Results * OCCULT BLOOD, FECES (10/25/2018 9:14 AM FAST FOOD CASHIER) OCCULT BLOOD FECAL NEGATIVE NEGATIVE 10/25/2018 9:29 AM FAST FOOD CASHIER [facility] STOOL SPECIMEN / Unknown 10/25/2018 9:14 AM FAST FOOD CASHIER Delbert Chowdary MD BODY FLUIDS AND STOOLS ORDERABLE S Final Result [facility] [address] [place] [address], [place] [phone] from Last 3 Months or Most Recently Relevant to Health Maintenance Insurance MEDICARE [facility] MEDIC[facility] HUMAN Advance Directives Documents on File Type Date Recorded Patient Echocardiograph Tech Expl anation Advance Directives and Living Will 03/18/2019 7:44 AM Signed 11-30-13A [facility] * Full Code (Latest Code Status on File) Date Activated Date Inactivated Comments 03/18/2019 2:01 AM 03/18/2019 2:52 PM * Full Code Date Activated Date Inactivated Comments 11/05/2018 2:25 PM 11/06/2018 5:57 PM * Full Code Date Activated Date Inactivated Comments 09/18/2018 1:31 PM 09/18/2018 4:45 PM Care Teams Electronic Resources Librarian Relationship Specialty Start Date End Date Vinod López DO [address] [place] [address] PCP - General INTERNAL MEDICINE 03/16/19 Tyler Brady MD [facility] [address] [place] [address] [place] Single Pass Soil Stabilizer Operator CARDIOVASCULAR DISEASE 09/01/18
--- OUTSIDE RECORDS SUMMARY | 2025-10-05 11:55 | XMS_ITS | Encounter Summary ---
Author Organization [facility] Address [address] [place] [address] Care Team Providers Care Tar Heat Exchanger Cleaner Name Role Phone Akil Chan MD Primary Care Provider [phone] Tyler Brady MD Unavailable [phone] Vinod López DO Primary Care Provider [phone] Encounter Details Date Type Department Care Team (Late st Contact Info) Description 12/18/2018 [employer]C20/[employer] Message Enc [facility] Multispecialty Care - [address], [address] [place] [id number] Kal Delcid MD [address] [place] [address] AMARJIT [address] [place] [address] Follow Up/Update Social History Tobacco [...] Sex Assigned at Female 11/05/2018 3:21 PM STITCH BONDING MACHINE TENDER Legal Sex Female 6:14 PM CDT Gender Identity Female 11/05/2018 3:21 PM STITCH BONDING MACHINE TENDER Sexual Orientation Not on file Occupation Industry Job Start Date Job End Date Not on file Not on file Not on file Not on file documented as of this encounter Plan of Treatment Not on file documented as of this encounter Visit Diagnoses Not on filedocumented in this encounter Care Teams Tar Heat Exchanger Cleaner Relationship Specialty Start Date End Date Akil Chan MD PCP - General INTERNAL MEDICINE 09/01/18 03/15/19 Vinod López DO [address] [address] PCP - General INTERNAL MEDICINE 03/16/19 Tyler Brady MD [facility] [address] [place] [address] [place] Director Of Cloud Services CARDIOVASCULAR DISEASE 09/01/18 documented as of this encounter
--- OUTSIDE RECORDS SUMMARY | 2025-10-05 11:55 | XMS_ITS | Encounter Summary ---
Author Organization [facility] Address [address] [place] [address] Care Team Providers Care Cotton Factor Name Role Phone Akil Chan MD Primary Care Provider [phone] Tyler Brady MD Unavailable [phone] Vinod López DO Primary Care Provider [phone] Reason for Visit * Reason Onset Date Comments Concerns 10/22/2018 Encounter Details Date Type Department Care Team (Late st Contact Info) Description 10/22/2018 Integrated Trade Processing Message [facility] at [facility], [facility] [address] [place] [address] Tyler Brady MD [facility] [address] [place] [address] Follow Up/Update Social History Tobacco [...] Sex Assigned at Female 11/05/2018 3:21 PM TELEVISION JOURNALIST Legal Sex Female 6:14 PM CDT Gender Identity Female 11/05/2018 3:21 PM TELEVISION JOURNALIST Sexual Orientation Not on file Occupation Industry [...] had no further questions. Message to the four h agent. VISION JOURNALIST * Tyler Brady MD - 10/22/2018 9:11 [...] when its convenient to her. Andrés Avalos VISION JOURNALIST * Jimena Chapman RN - 10/22/2018 8:54 [...] the patient. Message sent to Dr. Brady. VISION JOURNALIST documented in this encounter Plan of Treatment Not on file documented as of this encounter Visit Diagnoses Not on filedocumented in this encounter Care Teams Cotton Factor Relationship Specialty Start Date End Date Akil Chan MD PCP - General INTERNAL MEDICINE 09/01/18 03/15/19 Vinod López DO 0 [facility] [address] [place], [place] [id number] PCP - General INTERNAL MEDICINE 03/16/19 Tyler Brady MD [facility]. [facility] [address] [place] [address] [place] Charge Entry Clerk CARDIOVASCULAR DISEASE 09/01/18 documented as of this encounter
--- OUTSIDE RECORDS SUMMARY | 2025-10-05 11:55 | XMS_ITS | Encounter Summary ---
Author Organization [facility] Address [address] [place] [address] Care Team Providers Care Dispensary Technician Name Role Phone Akil Chan MD Primary Care Provider [phone] Tyler Brady MD Unavailable [phone] Vinod López DO Primary Care Provider [phone] Encounter Details Date Type Department Care Team (Late st Contact Info) Description 09/08/2018 [employer] Message Enc [facility] at [facility], [facility] [address] [place] [address] Tyler Brady MD [facility]. [facility] [address] [place], [place] [id number] Follow Up/Update Social History Tobacco Use Types [...] Sex Assigned at Female 11/05/2018 3:21 PM DEVELOPING MACHINE TENDER Legal Sex Female 6:14 PM CDT Gender Identity Female 11/05/2018 3:21 PM DEVELOPING MACHINE TENDER Sexual Orientation Not on file documented as of this encounter Plan of Treatment Not on file documented as of this encounter Visit Diagnoses Not on filedocumented in this encounter Care Teams Dispensary Technician Relationship Specialty Start Date End Date Akil Chan MD PCP - General INTERNAL MEDICINE 09/01/18 03/15/19 Vinod López DO [address] [place] [address] [address] [place], [place] [id number] PCP - General INTERNAL MEDICINE 03/16/19 Tyler Brady MD [facility] [address] [place] [address] [place] Block Handler CARDIOVASCULAR DISEASE 09/01/18 documented as of this encounter
--- OUTSIDE RECORDS SUMMARY | 2025-10-05 11:55 | XMS_ITS | Clinical Summary ---
Author Organization [facility] Address [address] [place] [address] Care Team Providers Care Advertising Director Name Role Phone Vinod López Primary Care Provider [phone] Source Comments [facility],non-owned Affiliates and Associated Physician Practices is amultiple site organization consisting of ambulatory clinics and hospital sitesin [place], [place], [place] and [place]. This disclosure is being madepursuant to the Care Everywhere program and may not contain all information available regarding this patient. Last updated 18.[facility] Allergies Active Allergy Reactions Criticality Noted Date [...] on file Legal Sex Female 8:43 PM SCAFFOLD WORKER Gender Identity Not on file Sexual Orientation Not on file Last Filed Vital Signs Vital Sign Reading Time Taken Comments Blood Pressure 136/82 11/07/2020 10:57 AM SCAFFOLD WORKER Pulse 70 11/07/2020 10:57 AM SCAFFOLD WORKER Temperature - - Respiratory Rate 12 11/07/2020 10:5 7 AM SCAFFOLD WORKER Oxygen Saturation - - Inhaled Oxygen Concentration - - Weight 124.4 kg (274 lb 3.2 oz) 021 10:57 AM SCAFFOLD WORKER Height 160 cm (5' 3) 11/07/2020 10:57 AM SCAFFOLD WORKER Body Mass Index 48.57 11/07/2020 10:57 AM SCAFFOLD WORKER Plan of Treatment Health Maintenance Due Date [...] age to complete this topic Insurance MEDICARE [facility] MEDICARE SELF PAY NO INSURANCE Member Subscriber Plan / Payer (Ef fective for All Dates) Name:Alessandra Sam Member ID:Not on file Relation to Subscriber:Not on file Name:ALESSANDRA SAM Subscriber ID:Not on file (Home) Address: [address] [place] [id number] Payer ID:Not on file Group ID:Not on file Type:Self Pay Address: [place], [place] Care Teams Advertising Director Relationship Specialty Start Date End Date Vinod López DO [address] [place], [place] [id number] PCP - General Internal Medicine 04/03/19
--- OUTSIDE RECORDS SUMMARY | 2025-10-05 11:55 | XMS_ITS | Encounter Summary ---
Author Organization [facility] Address [address] [place] [address] Care Team Providers Care Ingot Passer Name Role Phone Akil Chan MD Primary Care Provider [phone] Tyler Brady MD Unavailable [phone] Vinod López DO Primary Care Provider [phone] Encounter Details Date Type Department Care Team (Late st Contact Info) Description 02/24/2019 [place] Message Enc [facility] at [facility], [facility] [address] [place] [address] Tyler Brady MD [facility]. [facility] [address] [place] [address] Other Social History Tobacco Use [...] Sex Assigned at Female 11/05/2018 3:21 PM CONTROL SYSTEMS TECHNICIAN Legal Sex Female 6:14 PM CDT Gender Identity Female 11/05/2018 3:21 PM CONTROL SYSTEMS TECHNICIAN Sexual Orientation Not on file Occupation Industry Job Start Date Job End Date Not on file Not on file Not on file Not on file documented as of this encounter Plan of Treatment Not on file documented as of this encounter Visit Diagnoses Not on filedocumented in this encounter Care Teams Ingot Passer Relationship Specialty Start Date End Date Akil Chan MD PCP - General INTERNAL MEDICINE 09/01/18 03/15/19 Vinod López DO 20[address] [facility] [address] [place] [address] PCP - General INTERNAL MEDICINE 03/16/19 Tyler Brady MD [facility] [address] [place] [address] [place] Geology Associate CARDIOVASCULAR DISEASE 09/01/18 documented as of this encounter
--- OUTSIDE RECORDS SUMMARY | 2025-10-05 11:55 | XMS_ITS | Encounter Summary ---
Author Organization [facility] Address [address] [place] [address] Care Team Providers Care Labor Crew Supervisor Name Role Phone Akil Chan MD Primary Care Provider [phone] Tyler Brady MD Unavailable [phone] Vinod López DO Primary Care Provider [phone] Encounter Details Date Type Department Care Team (Late st Contact Info) Description 12/18/2018 [employer] Message Enc [facility] at [facility], [facility] [address] [place] [address] Tyler Brady MD [facility]. [facility] [address] [place], [place] [id number] Follow Up/Update Social History Tobacco Use Types [...] Sex Assigned at Female 11/05/2018 3:21 PM DAIRY STORE MANAGER Legal Sex Female 6:14 PM CDT Gender Identity Female 11/05/2018 3:21 PM DAIRY STORE MANAGER Sexual Orientation Not on file Occupation Industry Job Start Date Job End Date Not on file Not on file Not on file Not on file documented as of this encounter Progress Notes * Tyler Brady MD - 12/19/2018 6:10 PM CST Hi, I think Mrs. Osorio should see whichever scuba diving instructor she is most comfortable seeing and can see the soonest. Thanks Y STORE MANAGER * Jimena Chapman RN - 12/19/2018 2:15 PM CST The scuba diving instructor referral has been in limbo since you [...] plus they had an earlier appointment available. Nikloe Osorio Above message from the patient. Forwarded to Dr. Brady. Y STORE MANAGER documented in this encounter Plan of Treatment Not on file documented as of this encounter Visit Diagnoses Not on filedocumented in this encounter Care Teams Labor Crew Supervisor Relationship Specialty Start Date End Date Akil Chan MD PCP - General INTERNAL MEDICINE 09/01/18 03/15/19 Vinod López DO [address] [place] [address] PCP - General INTERNAL MEDICINE 03/16/19 Tyler Brady MD [facility] [address] [place] [address] Eddie Folding Machine Operator CARDIOVASCULAR DISEASE 09/01/18 documented as of this encounter
--- OUTSIDE RECORDS SUMMARY | 2025-10-05 11:55 | XMS_ITS | Encounter Summary ---
Author Organization [facility] Address [address] [place] [address] Care Team Providers Care Adjustment Clerk Name Role Phone Akil Chan MD Primary Care Provider [phone] Tyler Brady MD Unavailable [phone] Vinod López DO Primary Care Provider [phone] Encounter Details Date Type Department Care Team (Late st Contact Info) Description 09/10/2018 [employer] Message Enc [facility] at [facility], [facility] [address] [place] [address] Tyler Brady MD [facility]. [facility] [address] [place], [place] [id number] Medication Questions Social History Tobacco Use Types [...] Sex Assigned at Female 11/05/2018 3:21 PM STILL OPERATOR BATCH OR CONTINUOUS Legal Sex Female 6:14 PM CDT Gender Identity Female 11/05/2018 3:21 PM STILL OPERATOR BATCH OR CONTINUOUS Sexual Orientation Not on file documented as of this encounter Plan of Treatment Not on file documented as of this encounter Visit Diagnoses Not on filedocumented in this encounter Care Teams Adjustment Clerk Relationship Specialty Start Date End Date Akil Chan MD PCP - General INTERNAL MEDICINE 09/01/18 03/15/19 Vinod López DO [address] [place] [address] [address] [place], [place] [id number] PCP - General INTERNAL MEDICINE 03/16/19 Tyler Brady MD [facility] [address] [place] [address] Floris Air Tester CARDIOVASCULAR DISEASE 09/01/18 documented as of this encounter
--- OUTSIDE RECORDS SUMMARY | 2025-10-05 11:55 | XMS_ITS | Encounter Summary ---
Author Organization [facility] Address [address] [place] [address] Care Team Providers Care Aircraft Design Engineer Name Role Phone Akil Chan MD Primary Care Provider [phone] Tyler Brady MD Unavailable [phone] Vinod López DO Primary Care Provider [phone] Encounter Details Date Type Department Care Team (Late st Contact Info) Description 03/05/2019 [employer] Message Enc [facility] at [facility], [facility] [address] [place] [address] Tyler Brady MD [facility]. [facility] [address] [place], [place] [id number] Medication Questions Social History Tobacco Use Types [...] Sex Assigned at Female 11/05/2018 3:21 PM STORE OPERATIONS MANAGER Legal Sex Female 6:14 PM CDT Gender Identity Female 11/05/2018 3:21 PM STORE OPERATIONS MANAGER Sexual Orientation Not on file Occupation Industry Job Start Date Job End Date Not on file Not on file Not on file Not on file documented as of this encounter Plan of Treatment Not on file documented as of this encounter Visit Diagnoses Not on filedocumented in this encounter Care Teams Aircraft Design Engineer Relationship Specialty Start Date End Date Akil Chan MD PCP - General INTERNAL MEDICINE 09/01/18 03/15/19 Vinod López DO [address] [facility] [address] [place] [address] PCP - General INTERNAL MEDICINE 03/16/19 Tyler Brady MD [facility] [address] [place] [address] [place] Aerial Gunner Superintendent CARDIOVASCULAR DISEASE 09/01/18 documented as of this encounter
--- OUTSIDE RECORDS SUMMARY | 2025-10-05 11:55 | XMS_ITS | Encounter Summary ---
Author Organization [facility] Address [address] [place] [address] Care Team Providers Care Efficiency Miner Blasting Name Role Phone Akil Chan MD Primary Care Provider [phone] Tyler Brady MD Unavailable [phone] Vinod López DO Primary Care Provider [phone] Encounter Details Date Type Department Care Team (Late st Contact Info) Description 10/22/2018 [employer]ach[employer] Message Enc [facility] at [facility], [facility] [address] [place] [address] Tyler Brady MD [facility]. [facility] [address] [place] [address] Follow Up/Update Social History Tobacco [...] Sex Assigned at Female 11/05/2018 3:21 PM GRAIN SPOUTER Legal Sex Female 6:14 PM CDT Gender Identity Female 11/05/2018 3:21 PM GRAIN SPOUTER Sexual Orientation Not on file Occupation Industry [...] the patient. Message sent to Dr. Brady. N SPOUTER documented in this encounter Plan of Treatment Not on file documented as of this encounter Visit Diagnoses Not on filedocumented in this encounter Care Teams Efficiency Miner Blasting Relationship Specialty Start Date End Date Akil Chna MD PCP - General INTERNAL MEDICINE 09/01/18 03/15/19 Vinod López DO [address] [facility] [address] [place], [place] [id number] PCP - General INTERNAL MEDICINE 03/16/19 Tyler Brady MD [facility]. [place] [address] [place] [address] Oxbow Wood Carver Hand CARDIOVASCULAR DISEASE 09/01/18 documented as of this encounter
--- OUTSIDE RECORDS SUMMARY | 2025-10-05 11:56 | XMS_ITS | Encounter Summary ---
Author Organization [facility] Address [address] [place] [address] Care Team Providers Care Layboy Tender Name Role Phone Akil Chan MD Primary Care Provider [phone] Tyler Brady MD Unavailable [phone] Vinod López DO Primary Care Provider [phone] Encounter Details Date Type Department Care Team (Late st Contact Info) Description 10/13/2018 [employer] Message [facility] at [facility], [facility] [address] [place] [address] Tyler Brady MD [facility]. [facility] [address] [place], [place] [id number] Medication Questions Social History Tobacco Use Types [...] Sex Assigned at Female 11/05/2018 3:21 PM ACRYLIC FABRICATOR Legal Sex Female 6:14 PM CDT Gender Identity Female 11/05/2018 3:21 PM ACRYLIC FABRICATOR Sexual Orientation Not on file Occupation Industry Job Start Date Job End Date Not on file Not on file Not on file Not on file documented as of this encounter Plan of Treatment Not on file documented as of this encounter Visit Diagnoses Not on filedocumented in this encounter Care Teams Layboy Tender Relationship Specialty Start Date End Date Akil Chan MD PCP - General INTERNAL MEDICINE 09/01/18 03/15/19 Vinod López DO [address] [facility] [address] [place] [address] PCP - General INTERNAL MEDICINE 03/16/19 Tyler Brady MD [facility] [address] [place] [address] [place] Exhibits Manager CARDIOVASCULAR DISEASE 09/01/18 documented as of this encounter
--- OUTSIDE RECORDS SUMMARY | 2025-10-05 11:56 | XMS_ITS | Encounter Summary ---
Author Organization [facility] Address [address] [place] [address] Care Team Providers Care Artillery Meteorological Man Name Role Phone Akil Chan MD Primary Care Provider [phone] Tyler Brady MD Unavailable [phone] Vinod López DO Primary Care Provider [phone] Encounter Details Date Type Department Care Team (Late st Contact Info) Description 09/03/2018 [employer] Message Enc [facility] at [facility], [facility] [address] [place] [address] Tyler Brady MD [facility]. [facility] [address] [place] [address] Follow Up/Update Social History Tobacco [...] Assigned at Female 11/05/2018 3:21 PM SUPERVISOR AIRCRAFT MAINTENANCE Legal Sex Female 6:14 PM CDT Gender Identity Female 11/05/2018 3:21 PM SUPERVISOR AIRCRAFT MAINTENANCE Sexual Orientation Not on file documented as of this encounter Plan of Treatment Not on file documented as of this encounter Visit Diagnoses Not on filedocumented in this encounter Care Teams Artillery Meteorological Man Relationship Specialty Start Date End Date Akil Chan MD PCP - General INTERNAL MEDICINE 09/01/18 03/15/19 Vinod López DO [address] [place] [address] [address] [place], [place] [id number] PCP - General INTERNAL MEDICINE 03/16/19 Tyler Brady MD [facility] [address] [place] [address] [facility] CARDIOVASCULAR DISEASE 09/01/18 documented as of this encounter
--- OUTSIDE RECORDS SUMMARY | 2025-10-05 11:56 | XMS_ITS | Encounter Summary ---
Author Organization [facility] Healthcare Address [address] [place] [address] Care Team Providers Care Skull Grinder Name Role Phone Vinod López DO Primary Care Provider [phone] Thanh Alexandre MD, Flash Unavailable [phone] Roger Hutchins DO Primary Care Provider [phone] Encounter Details Date Type Department Care Team (Late st Contact Info) Description 04/06/[address] [facility] Health Information Management [address] [place] [address] Scanning, Provider Social History Tobacco Use Types Packs/Day Years Used Date Smoking Tobacco: Never Smokeless Tobacco: Never Alcohol Use Standard Drinks/Week Comments Yes 0 (1 standard drink = 0.6 oz pure alcohol) Very rarely - wine holiday meal Comments Unknown Sex and Gender Information Value Date Recorded Sex Assigned at Not on file Legal Sex Female 3:20 AM OFFSET LABEL REWINDER Gender Identity Female 11/18/2019 4:40 AM OFFSET LABEL REWINDER Sexual Orientation Straight 11/18/2019 4: 40 AM OFFSET LABEL REWINDER documented as of this encounter Plan of [...] on filedocumented in this encounter Care Teams Skull Grinder Relationship Specialty Start Date End Date Vinod López DO PCP - General Internal Medicine 11/11/19 06/07/25 Roger Hutchins DO [address] [facility] [place] [address] PCP - General Internal Medicine 06/08/25 Flash Law Jr., MD Medical Oncologist/Departmental Buyer Medical Oncology 12/14/19 documented as of this encounter
--- OUTSIDE RECORDS SUMMARY | 2025-10-05 11:56 | XMS_ITS | Encounter Summary ---
Author Organization [facility] Address [facility] [place] [address] Care Team Providers Care Manager Family Name Role Phone Tyler Brady MD Unavailable [phone] Vinod López DO Primary Care Provider [phone] Encounter Details Date Type Department Care Team (Late st Contact Info) Description 03/19/2019 [employer] Message [facility] at [facility], [place] [address] [place] [address] Tyler Brady MD [facility]. [place] [address] [place], [place] [phone] Follow Up/Update Social History Tobacco Use Types [...] Sex Assigned at Female 11/05/2018 3:21 PM BELLPERSON Legal Sex Female 6:14 PM CDT Gender Identity Female 11/05/2018 3:21 PM BELLPERSON Sexual Orientation Not on file Occupation Industry [...] filedocumented in this encounter Care Teams Manager Family Relationship Specialty Start Date End Date Vinod López DO [address] [facility] [address] [place] [address] PCP - General INTERNAL MEDICINE 03/16/19 Tyler Brady MD [facility] [address] [place] [address] Bally Binitrotoluene Operator CARDIOVASCULAR DISEASE 09/01/18 documented as of this encounter
--- OUTSIDE RECORDS SUMMARY | 2025-10-05 11:56 | XMS_ITS | Encounter Summary ---
Author Organization [facility] Healthcare Address [address] [place] [address] Care Team Providers Care Show Host/Hostess Name Role Phone Akil Chan MD Primary Care Provider [phone] Vinod López DO Primary Care Provider [phone] Thanh Alexandre MD, Flash Unavailable [phone] Roger Hutchins DO Primary Care Provider [phone] Encounter Details Date Type Department Care Team (Late st Contact Info) Description 07/15/2018 Orders Only [facility] Health Information Management [address] [place] [address] Scanning, Provider Social History Tobacco Use Types Packs/Day Years Used Date Smoking Tobacco: Never Alcohol Use Standard Drinks/Week Comments Yes 0 (1 standard drink = 0.6 oz pur e alcohol) Comments Unknown Sex and Gender Information Value Date Recorded Sex Assigned at Not on file Legal Sex Female 3:20 AM BUDGET ACCOUNTANT Gender Identity Female 11/18/2019 4:40 AM BUDGET ACCOUNTANT Sexual Orientation Straight 11/18/2019 4: 40 AM BUDGET ACCOUNTANT documented as of this encounter Plan of [...] on filedocumented in this encounter Care Teams Show Host/Hostess Relationship Specialty Start Date End Date Akil Chan MD PCP - General 02/05/17 11/10/19 Vinod López DO PCP - General Internal Medicine 11/11/19 06/07/25 Roger Hutchins DO [address] [place] [address] PCP - General Internal Medicine 06/08/25 Flash Law Jr., MD Medical Oncologist/Refractory Mixer Medical Oncology 12/14/19 documented as of this encounter
--- OUTSIDE RECORDS SUMMARY | 2025-10-05 11:56 | XMS_ITS | Encounter Summary ---
Author Organization [facility] Address [facility] [place] [address] Care Team Providers Care Panel Assembler Name Role Phone Tyler Brady MD Unavailable [phone] Vinod López DO Primary Care Provider [phone] Encounter Details Date Type Department Care Team (Late st Contact Info) Description 03/23/2019 [employer] Message [facility] at [facility], [facility] [address] [place] [address] Tyler Brady MD [facility]. [facility] [address] [place], [place] [address] Medication Questions Social History Tobacco Use Types [...] Assigned at Female 11/05/2018 3:21 PM HEAD WAITER Legal Sex Female 6:14 PM CDT Gender Identity Female 11/05/2018 3:21 PM HEAD WAITER Sexual Orientation Not on file Occupation Industry [...] on filedocumented in this encounter Care Teams Panel Assembler Relationship Specialty Start Date End Date Vinod López DO [address] [facility] [address] [place] [address] PCP - General INTERNAL MEDICINE 03/16/19 Tyler Brady MD [facility] [address] [place] [address] [place] Depot Manager CARDIOVASCULAR DISEASE 09/01/18 documented as of this encounter
--- OUTSIDE RECORDS SUMMARY | 2025-10-05 11:56 | XMS_ITS | Encounter Summary ---
Author Organization [facility] Address [address] [place] [address] Care Team Providers Care Fire Captain Name Role Phone Tyler Brady MD Unavailable [phone] Vinod López DO Primary Care Provider [phone] Encounter Details Date Type Department Care Team (Late st Contact Info) Description 03/16/2019 [employer] Message [email or web address] at [facility], [facility] [address] [place] [address] Tyler Brady MD [facility]. [facility] [address] [place], [place] [id number] Follow Up/Update Social History Tobacco Use Types [...] Sex Assigned at Female 11/05/2018 3:21 PM PRIVATE WATCHMAN Legal Sex Female 6:14 PM CDT Gender Identity Female 11/05/2018 3:21 PM PRIVATE WATCHMAN Sexual Orientation Not on file Occupation Industry [...] making decisions? No 03/17/2019 4:23 PM CDT oMni Gardiner RN Active documented in this encounter Plan of Treatment Not on file documented as of this encounter Visit Diagnoses Not on filedocumented in this encounter Care Teams Fire Captain Relationship Specialty Start Date End Date Vinod López DO [address] [facility] [address] [place] [address] PCP - General INTERNAL MEDICINE 03/16/19 Tyler Brady MD [facility] [address] [place] [address] [place] Telephonic Nurse CARDIOVASCULAR DISEASE 09/01/18 documented as of this encounter
--- OUTSIDE RECORDS SUMMARY | 2025-10-05 11:56 | XMS_ITS | Encounter Summary ---
Author Organization [facility] Address [facility] [place] [address] Care Team Providers Care Associate Entertainment Editor Name Role Phone Tyler Brady MD Unavailable [phone] Vinod López DO Primary Care Provider [phone] Encounter Details Date Type Department Care Team (Late st Contact Info) Description 03/23/2019 [employer] Message [employer] [facility] at [facility], [facility] [address] [place] [address] Tyler Brady MD [facility]. [facility] [address] [place], [place] [phone] Medication Questions Social History Tobacco Use Types [...] Sex Assigned at Female 11/05/2018 3:21 PM BRAND COMMUNICATIONS MANAGER Legal Sex Female 6:14 PM CDT Gender Identity Female 11/05/2018 3:21 PM BRAND COMMUNICATIONS MANAGER Sexual Orientation Not on file Occupation [...] filedocumented in this encounter Care Teams Associate Entertainment Editor Relationship Specialty Start Date End Date Vinod López DO [address] [facility] [address] [place] [address] PCP - General INTERNAL MEDICINE 03/16/19 Tyler Brady MD [facility] [address] [place] [address] Boss Card Placer CARDIOVASCULAR DISEASE 09/01/18 documented as of this encounter
--- OUTSIDE RECORDS SUMMARY | 2025-10-05 11:56 | XMS_ITS | Encounter Summary ---
Author Organization [facility] Address [facility] [place] [address] Care Team Providers Care Plan Manager Name Role Phone Tyler Brady MD Unavailable [phone] Vinod López DO Primary Care Provider [phone] Encounter Details Date Type Department Care Team (Late st Contact Info) Description 03/27/2019 [employer] Message [facility] at [facility], [facility] [address] [place] [address] Tyler Brady MD [facility]. [facility] [address] [place], [place] [address] Other Social History Tobacco Use Types Packs/Day [...] Sex Assigned at Female 11/05/2018 3:21 PM STAKE SETTER Legal Sex Female 6:14 PM CDT Gender Identity Female 11/05/2018 3:21 PM STAKE SETTER Sexual Orientation Not on file Occupation [...] on filedocumented in this encounter Care Teams Plan Manager Relationship Specialty Start Date End Date Vinod López DO [address] [facility] [address] [place] [address] PCP - General INTERNAL MEDICINE 03/16/19 Tyler Brady MD [facility] [address] [place] [address] [place] Pageant Director CARDIOVASCULAR DISEASE 09/01/18 documented as of this encounter
--- OUTSIDE RECORDS SUMMARY | 2025-10-05 11:56 | XMS_ITS | Encounter Summary ---
Author Organization [facility] Address [address] [place] [address] Care Team Providers Care Sharepoint Administrator Name Role Phone Akil Chan MD Primary Care Provider [phone] Tyler Brady MD Unavailable [phone] Vinod López DO Primary Care Provider [phone] Encounter Details Date Type Department Care Team (Late st Contact Info) Description 09/03/2018 Abstract [facility] at [address] [address] [place] Social History [...] Sex Assigned at Female 11/05/2018 3:21 PM ADMISSION SPECIALIST Legal Sex Female 6:14 PM CDT Gender Identity Female 11/05/2018 3:21 PM ADMISSION SPECIALIST Sexual Orientation Not on file documented as [...] on filedocumented in this encounter Care Teams Sharepoint Administrator Relationship Specialty Start Date End Date Akil Chan MD PCP - General INTERNAL MEDICINE 09/01/18 03/15/19 Vinod López DO [address] [facility] [address] [place] [address] PCP - General INTERNAL MEDICINE 03/16/19 Tyler Brady MD [facility] [address] [place] [address] [place] Manager [place] CARDIOVASCULAR DISEASE 09/01/18 documented as of this encounter
--- OUTSIDE RECORDS SUMMARY | 2025-10-05 11:56 | XMS_ITS | Encounter Summary ---
Author Organization [facility] Address [address] [place] [address] Care Team Providers Care Organizational Effectiveness Consultant Name Role Phone Akil Chan MD Primary Care Provider [phone] Tyler Brady MD Unavailable [phone] Vinod López DO Primary Care Provider [phone] Encounter Details Date Type Department Care Team (Late st Contact Info) Description 09/17/2018 Hospital Orders Only [facility] at [facility], [address] [address] Roger Mcnamara MD [facility]. [address] [address] Social History Tobacco Use Types [...] Sex Assigned at Female 11/05/2018 3:21 PM PLAYGROUND DIRECTOR Legal Sex Female 6:14 PM CDT Gender Identity Female 11/05/2018 3:21 PM PLAYGROUND DIRECTOR Sexual Orientation Not on file documented as of this encounter Plan of Treatment Not on file documented as of this encounter Visit Diagnoses Not on filedocumented in this encounter Care Teams Organizational Effectiveness Consultant Relationship Specialty Start Date End Date Akil Chan MD PCP - General INTERNAL MEDICINE 09/01/18 03/15/19 Vinod López DO [address] [place] [address] [address] [place] [address] PCP - General INTERNAL MEDICINE 03/16/19 Tyler Brady MD [facility] [address] [place] [address] [place] Quick Sketch Artist CARDIOVASCULAR DISEASE 09/01/18 documented as of this encounter
--- OUTSIDE RECORDS SUMMARY | 2025-10-05 11:56 | XMS_ITS | Encounter Summary ---
Author Organization [facility] Address [address] [place] [address] Care Team Providers Care Tool And Die Engineer Name Role Phone Akil Chan MD Primary Care Provider [phone] Tyler Brady MD Unavailable [phone] Vinod López DO Primary Care Provider [phone] Encounter Details Date Type Department Care Team (Late st Contact Info) Description 10/13/2018 Faraday Message [facility] at [facility], [facility] [address] [place] [address] Tyler Brady MD [facility]. [facility] [address] [place], [place] [id number] Medication Questions Social History Tobacco Use Types [...] Sex Assigned at Female 11/05/2018 3:21 PM ECHOCARDIOGRAPHY RADIOLOGY TECHNOLOGIST Legal Sex Female 6:14 PM CDT Gender Identity Female 11/05/2018 3:21 PM ECHOCARDIOGRAPHY RADIOLOGY TECHNOLOGIST Sexual Orientation Not on file Occupation Industry Job Start Date Job End Date Not on file Not on file Not on file Not on file documented as of this encounter Plan of Treatment Not on file documented as of this encounter Visit Diagnoses Not on filedocumented in this encounter Care Teams Tool And Die Engineer Relationship Specialty Start Date End Date Akil Chan MD PCP - General INTERNAL MEDICINE 09/01/18 03/15/19 Vinod López DO [address] [employer] [facility] [address] [place] [address] PCP - General INTERNAL MEDICINE 03/16/19 Tyler Brady MD [facility] [address] [place] [address] [place] Booster Operator CARDIOVASCULAR DISEASE 09/01/18 documented as of this encounter
--- OUTSIDE RECORDS SUMMARY | 2025-10-05 11:56 | XMS_ITS | Encounter Summary ---
Author Organization [facility] Healthcare Address [address] [place] [address] Care Team Providers Care Pediatrician Name Role Phone Vinod López DO Primary Care Provider [phone] Thanh Alexandre MD, Flash Unavailable [phone] Roger Hutchins DO Primary Care Provider [phone] Encounter Details Date Type Department Care Team (Late st Contact Info) Description 05/29/2025 Orders Only [facility] Health Information Management [address] [place] [address] Scanning, Provider Social History Tobacco Use Types Packs/Day Years Used Date Smoking Tobacco: Never Smokeless Tobacco: Never Alcohol Use Standard Drinks/Week Comments Yes 0 (1 standard drink = 0.6 oz pure alcohol) Very rarely - wine holiday meal Comments Unknown Sex and Gender Information Value Date Recorded Sex Assigned at Not on file Legal Sex Female 3:20 AM ORACLE APPLICATION CONSULTANT Gender Identity Female 11/18/2019 4:40 AM ORACLE APPLICATION CONSULTANT Sexual Orientation Straight 11/18/2019 4: 40 AM ORACLE APPLICATION CONSULTANT documented as of this encounter Plan of [...] on filedocumented in this encounter Care Teams Pediatrician Relationship Specialty Start Date End Date Vinod López DO PCP - General Internal Medicine 11/11/19 06/07/25 Roger Hutchins DO [address] [facility] [address] PCP - General Internal Medicine 06/08/25 Flash Law Jr., MD Medical Oncologist/Career Manager Medical Oncology 12/14/19 documented as of this encounter
--- OUTSIDE RECORDS SUMMARY | 2025-10-05 11:56 | XMS_ITS | Clinical Summary ---
Author Organization [facility] Address [address] [place] [address] Care Team Providers Care Magnet Valve Assembler Name Role Phone Thanh Alexandre MD, Flash Unavailable [phone] Roger Hutchins DO Primary Care Provider [phone] Allergies Active Allergy Reactions Criticality Noted Date [...] route every day 0 0 5 Active metOLazone (ZAROXOLYN) 2.5 mg tablet as [...] mouth daily 90 tablet 1 5 Active rivaroxaban (XARELTO) 20 mg tablet Take 1 tablet (20 mg total) by mouth daily 90 tablet 3 5 Active rivaroxaban (XARELTO) 20 mg tablet Take 1 tablet (20 mg total) by mouth daily. 90 tablet 3 8 09/21/20 25 Discontinu ed(Reorder ) Active Problems Problem Noted Date Diagnosed Date Cardiac pacemaker in situ 06/09/2025 Overview (06/09/2025): Butts Assurity Dual Pacemaker. Dx; SSS, Afib. DOI 03/17/2019-Caitlyn [facility]. Se remote transfer requested 06/09/25. 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 Encounters Date Type Department Care Team Description 08/06/2025 Results Follow-Up [facility] [address] [facility] [address] [place] [address] Luzmaria Hernadez NP Comprehensive metabolic panel, Thyroid Function [place], T4, free 07/27/2025 11:00 AM CDT Ancillary Procedure [facility] [address] [facility] [address] [place] [phone] Cardiac pacemaker in situ (Primary Dx); Persistent atrial fibrillation (HCC); SSS (sick sinus syndrome) (HCC) 07/20/2025 9:30 AM CDT Office Visit [facility] [address] [place] [address] [address] [place] [phone] Luzmaria Hernadez NP Persistent atrial fibrillation (HCC); On amiodarone therapy; Chronic diastolic congestive heart failure (HCC); Pulmonary hypertension (HCC); Nonrheumatic tricuspid valve regurgitation; History of cardiac pacemaker 07/15/2025 Telephone [facility] [address] [place] [address] [address] [place] [phone] Luzmaria Hernadez NP BP readings; Rapid Heart Rate from Last 3 Months Immunizations Immunization Administration [...] metatarsal shortening; Laterality: left Hx Other Medical 2013 Humerus; Latera lity: right Hx Other Medical [...] disease Brother Robin Anemia Daughter 1 Mariangel Osorio Anemia Daughter 2 Jimena Osorio Arthritis Father [...] of Hypertension; Arthritis Sister 1 Keshia Murray Voci Heart disease Sister 1 Keshia Murray Voci [...] 1 Keshia Murray Voci Sister 2 Bell Starkley Sister 3 Corinne [...] on file Legal Sex Female 3:[address] Gender Identity Female 11/18/2019 4:[address]ANT Sexual Orientation Straight 11/18/2019 4: [address]ANT Last Filed Vital Signs Vital Sign Reading [...] Fall Risk Assessment 1945 Hemoglobin A1C 1945 Osteoporosis Screening-Bone Density Scan 1945 Dilated [...] 08/03/2025 7:58 AM CDT On amiodarone therapy DEVICE CHECK - REMOTE Routine 07/27/2025 3:13 PM CDT Cardiac pacemaker in situ Persistent atrial fibrillation (HCC) SSS (sick sinus syndrome) (HCC) from Last 3 Months Results * (ABNORMAL) Thyroid Function [place] (08/03/2025 7:58 AM CDT) TSH 0.13(L) 0.40 - 4.50 mIU/L [facility] Blood 08/03/2025 7:58 AM CDT 08/03/2025 7:58 AM CDT Luzmaria Hernadez CLINICAL ENGINEERING DIRECTOR LAB BLOOD ORDERABLES Sagrario l Result Performing Organization Address [facility]/ZIP Co de Phone Number QUEST [facility] [address] [place] [address] * (ABNORMAL) T4, free (08/03/2025 7:58 AM CDT) Pathologist [facility] Free T4 2.1(H) 0.8 - 1.8 ng/dL [facility] 08/03/2025 7:58 AM CDT 08/03/2025 7:58 AM CDT Luzmaria Hernadez CLINICAL ENGINEERING DIRECTOR LAB BLOOD ORDERABLES Sagrario l Result Performing Organization Address [facility] Co de Phone Number QUEST [facility] [address] [place] [address] * (ABNORMAL) Comprehensive metabolic panel (08/03/2025 7:58 AM CDT) Pathologist [facility] Glucose 87 65 - 99 mg/dL [facility] [...] Luzmaria Hernadez NP LAB BLOOD ORDERABLES Sagrario kaye Result DC [facility] [address] [place] [address] * DEVICE CHECK - REMOTE (07/27/2025 3:13 PM CDT) Anatomical Region Laterality Modality Other Narrative 08/18/2025 11:36 AM CDT Butts Assurity Dual Pacemaker. Dx; SSS, Afib. DOI 03/17/2019-CHERRIE Brady. Se remote transfer requested 06/09/25. Routine DDDR Pacemaker Remote. Transmission attached. Battery status: 2.98 V , 4.7-5.1 years remaining battery life to DELMA. Stable lead impedances, pacing and sensing thresholds. Presenting rhythm: /VS regular AP-15 %, ADJUSTER PIANO ACTION-< 1% 27 AT/AF episodes noted, longest episode was 2 days and 18 hours in duration, IEGM demonstrates AFib. AF [place] 6.8%. 7 Ventricular high rate episodes detected, IEGM demonstrates AFib with RVR with the longest episode lasting 37 seconds. Medications: Amiodarone 200 mg, Xarelto 20 mg See scanned report. Office pacemaker follow up: 9 months [facility] f/u 10/26/25. Nathan Garcia RN Tyler Mancilla MD [facility] CARDIAC SERVICES PROC EDURES Final Result from Last 3 Months Insurance MEDICARE [employer] MEDICARE FOR LIFE MEDICARE FOR LIFE Care Teams Magnet Valve Assembler Relationship Specialty Start Date End Date Roger Hutchins DO [address] [place], [place] [id number] PCP - General Internal Medicine 06/08/25 Flash Law Jr., MD Medical Oncologist/Local Company Truck Driver Medical Oncology 12/14/19
== END 2025-10-05 10:53 | disposition home or self-care (01) ==
PROVIDERS: PCP Internal Medicine; Visit Provider Nurse Practitioner Adult Health
DX: I50.9 Heart failure, unspecified (principal); Z98.890 Other specified postprocedural states
CPT/HCPCS: 71046